=== PATIENT | female | born 1955 | race Caucasian/White ===

== ENCOUNTER 2017-05-27 18:09 | Observation (INO) | payer MEDICARE, SELFPAY ==
[2017-05-27 18:10] VITALS: BP 174/100; PULSE 93; RESP 16; TEMP 36.6; O2SAT 97; BMI 50.2
--- NOTE | 2017-05-27 20:06 | PCM.HP.STD ---
Problem List (1) Tonsillitis Status: Acute (2) JOSIE (obstructive sleep apnea) Status: Chronic Comment: not wearing CPAP or BIPAP (3) HTN (hypertension) Status: Chronic Qualifiers: Hypertension type: essential hypertension Qualified Code(s): I10 - Essential (primary) hypertension (4) Diabetes mellitus type 2 in obese Status: Chronic (5) Hyperlipidemia Status: Chronic (6) Fibromyalgia Status: Chronic (7) Morbid obesity with BMI of 50.0-59.9, adult Status: Chronic (8) GERD (gastroesophageal reflux disease) Status: Chronic (9) History of colonic polyps Status: Chronic (10) Asthma Status: Chronic History of Present Illness Date of Admission: 05/27/17 Chief Complaint: sore throat for 3 weeks The patient is a 61 year old F with a PMH of DM II, HTN, HLD, GERD, nephrolithiasis, colon polyps, fibromyalgia, morbid obesity and hx of mastoiditis requiring surgery Left mastoid who presented to the ER at [facility] on 05/[address] Carter's office saying she needed to be admitted to the hospital for IV Vancomycin. She tells me that she had a nasal culture that has a resistant bacteria in it? There were no culture reports accompanying her and we received no reports from Dr. Carter's office. She has had a sore throat for 3 weeks and also has post nasal drainage with a cough when she lies down. She was initially treated with Azithromycin which she states helped but did not resolve the pain. She then had a 10 day course of Clindamycin which did nothing. She lists 28 allergies on her medication reconciliation and many are unknown reactions. On PE she has red enlarged tonsils, almost kissing. There is no exudate present and she has no drooling. She is able to swallow liquids without a problem. She can open her mouth widely. She is being admitted to the hospital for observation and will be placed on Vancomycin until we are able to obtain the culture results from the [facility]/Dr. Carter. She is not currently being treated for JOSIE. She tells me that in [place] they taught her to lie on her side or on her stomach so that she would not need CPAP. She has not had a sleep study in several years and has gained weight since the sleep study was done. Past Medical History Past Medical History (Chronic Problems): Chronic Problems JOSIE (obstructive sleep apnea) (Chronic) not wearing CPAP or BIPAP HTN (hypertension) (Chronic) Diabetes mellitus type 2 in obese (Chronic) Hyperlipidemia (Chronic) Fibromyalgia (Chronic) Morbid obesity with BMI of 50.0-59.9, adult (Chronic) GERD (gastroesophageal reflux disease) (Chronic) History of colonic polyps (Chronic) Asthma (Chronic) Allergies adhesive tape Allergy (Verified 05/27/17 18:15) Other cephalexin monohydrate [From Keflex] Allergy (Verified 05/27/17 19:39) Other DIME SIZE SPOTS ON LEGS ciprofloxacin [From Cipro] Allergy (Verified 05/27/17 18:15) Hives ciprofloxacin HCl [From Cipro] Allergy (Verified 05/27/17 18:15) Hives citalopram hydrobromide [From Celexa] Allergy (Verified 05/27/17 18:15) Unknown clarithromycin [From Biaxin] Allergy (Verified 05/27/17 18:15) Unknown codeine Allergy (Verified 05/27/17 18:15) Unknown diltiazem HCl [From Cardizem] Allergy (Verified 05/27/17 18:15) Unknown fluoxetine HCl [From Prozac] Allergy (Verified 05/27/17 18:15) Unknown fluticasone propionate [From Advair Diskus] Allergy (Verified 05/27/17 18:15) Other hydrochlorothiazide [From Hyzaar] Allergy (Verified 05/27/17 18:15) Unknown ipratropium bromide [From Atrovent] Allergy (Verified 05/27/17 18:15) Unknown labetalol Allergy (Verified 05/27/17 18:15) Rash lamotrigine [From Lamictal] Allergy (Verified 05/27/17 18:15) Unknown latex Allergy (Verified 05/27/17 18:15) Unknown liraglutide [From Victoza] Allergy (Verified 05/27/17 18:15) Unknown losartan potassium [From Hyzaar] Allergy (Verified 05/27/17 18:15) Unknown meloxicam [From Mobic] Allergy (Verified 05/27/17 18:15) Other nitrofurantoin [From Macrobid] Allergy (Verified 05/27/17 18:15) Hives nitrofurantoin macrocrystalline [From Macrobid] Allergy (Verified 05/27/17 18:15) Hives Penicillins Allergy (Verified 05/27/17 18:15) Rash quetiapine fumarate [From Seroquel] Allergy (Verified 05/27/17 18:15) Unknown salmeterol xinafoate [From Advair Diskus] Allergy (Verified 05/27/17 18:15) Other sertraline HCl [From Zoloft] Allergy (Verified 05/27/17 18:15) Unknown simvastatin [From Zocor] Allergy (Verified 05/27/17 18:15) Unknown topiramate [From Topamax] Allergy (Verified 05/27/17 18:15) Unknown verapamil HCl [From Covera-HS] Allergy (Verified 05/27/17 18:15) Unknown acetaminophen [From Lortab] Adverse Reaction (Verified 05/27/17 18:15) Nausea hydrocodone bitartrate [From Lortab] Adverse Reaction (Verified 05/27/17 18:15) Nausea ramipril [From Altace] Adverse Reaction (Verified 05/27/17 18:15) Laryngospasms sulfamethoxazole [From Septra] Adverse Reaction (Verified 05/27/17 18:15) Unknown trimethoprim [From Septra] Adverse Reaction (Verified 05/27/17 18:15) Unknown ZONEGRAM Allergy (Uncoded 05/27/17 18:15) Unknown Home Medications: Ambulatory Orders Medication Instructions Recorded Amlodipine [Norvasc] 1 tab PO DAILY 05/27/17 Aspirin [Aspir-Low] 1 tab PO DAILY 05/27/17 Buspar 1 tab PO BID 05/27/17 Clonidine HCl [Clonidine HCl] 1 tab PO TID 05/27/17 Cyclobenzaprine [Flexeril] 10 mg PO QHS PRN 05/27/17 DiphenhydrAMINE [Benadryl] 25 - 50 mg PO BID PRN PRN 05/27/17 Insulin Glargine [Lantus SoloStar 50 mg IM BID 05/27/17 Pen] Metformin HCl 1,000 mg PO BID 05/27/17 Omeprazole [Prilosec] 20 mg PO DAILY 05/27/17 Probiotic 1 tab PO DAILY 05/27/17 Surgical History: cholecystectomy, hysterectomy - still has 1 ovary......can not tell me why she had a hysterectomy but knows that she did not have cancer, - - surgery on the L matstoid, CT surgery on the RUE Psychiatric History: No pertinent psych hx DEAN OF STUDENTS History: No pertinent DEAN OF STUDENTS history Lives: With Family Smoking Status: Never smoker Tobacco Use: Non-smoker Alcohol: None Drugs: None - *Family History Maternal History Items: - - mother with emphysema Paternal History Items: Heart Disease Review of Systems Constitutional: Reports: Chills, Fever. Denies: Anorexia Eyes: Denies: Blurred vision, Redness, Vision Change HEENT: Reports: Difficulty Swallowing - solids and dry foods, Ear Pain, Head Aches, Post Nasal Drip, Sore Throat. Denies: Difficulty Hearing Cardiovascular: Denies: Chest Pain, Edema, Palpitations, Paroxysmal Noc. Dyspnea Respiratory: Reports: Cough - when she lies down primarily, Shortness of breath upon exertion Gastrointestinal: Reports: Abdominal Pain - this is chronic. Denies: Diarrhea, Nausea, Vomiting Genitourinary: Denies: Dysuria Musculoskeletal: Reports: - - She has pain all over - from fibromyalgia Skin: Denies: Jaundice, Rash, Wounds Neurological: Denies: Numbness, Tingling, Focal weakness Psychiatric: Denies: Anxiety, Depression, Homicidal Ideations, Suicidal Ideations Endocrine: Reports: Change in Body Habitus - she has been gaining weight over the past few years. Denies: Hx of Thyroiditis Hematologic/ Lymphatic: Denies: Hx of blood clot VTE Information - Inpt Only VTE Present on Admission: No VTE Mechan Device Prophylaxis: SCD's VTE Pharm Prophylaxis ordered?: Yes Patient Problems: Active and Suspected Problems Tonsillitis (Acute) - Physical Exam General: Alert, Oriented x3, Cooperative, No apparent distress, Well developed, Well nourished, - - not toxi appearing HEENT: Atraumatic, PERRLA, EOMI, Normocephalic, EAC Clear, - - the R TM is normal. There is sacrring on the left TM but no significant effusion and no redness Oral: Moist Mucosa, No Gingival or Mucosal Lesions/ Ulcerations, - - The tonsil are very enlarged and are almost kissing. The floor of the mouth is soft and she has no trismus and can open wide. There is no exudate on the tonsils and the buccal mucosa is normal. No drooling and she is able to swallow thin liquids without difficulty Neck: Supple, Negative Carotid Bruits, No Nodes - I can not palpate any cervical adenopathy but she has a thick neck, No Nuchal Rigidity, Trachea Midline Lungs: Clear to auscultation, No rhonchi, No wheeze, No rales, Diminished - may be due to body habitus Cardiovascular: Regular rate, Regular Rhythm, Normal S1, Normal S2, No Ectopic Activity, Murmur - 1-2/6 at the second RICS, No rub noted, No Gallop Abdomen: Bowel Sounds Present, Soft, Non-Distended, Obese, - - no guarding with palpation Extremities: No clubbing, No cyanosis, No edema, No Calf Tenderness, Peripheral Pulses Normal Skin: No rashes, No breakdown Musculoskeletal: No Muscle Wasting Neurological: Cranial nerves II-XII grossly intact, Neuro grossly intact, Motor Exam 5/5 strength throughout Psych/Mental Status: Normal Affect, Appropriate Vital Signs Temp Pulse Resp BP Pulse Ox 97.8 F 93 16 174/100 H 97 05/27/17 18:10 05/27/17 18:10 05/27/17 18:10 05/27/17 18:10 05/27/17 18:10 Oxygen Delivery Method Room Air Weight: 283 lb 11.759 oz Body Mass Index (BMI) 50.2 Assessment/Plan Active and Suspected Problems Tonsillitis (Acute) Impressions 1. Tonsillitis/pharyngitis- Persistent despite outpatient antibiotic treatment with azithromycin followed by clindamycin. She reportedly has a bacteria with multiple drug resistance growing from a nasal culture but, no culture were reports were received from [facility]/Dr. Carter. PE is not consistent with Rudolph's angina and she does not appear toxic. She will be admitted to [place] for observation and IV Vancomycin until we receive the cultures from the [facility]....hopefully in the warp splitter. There is no indication that she needs a CT neck at this time. Repeat throat and nose cultures have been ordered and a MRSA nasal swab. Bllod cultures were drawn in the ER. Multiple reported drug allergies.....many with an unknown reaction complicate treating this patient......it may be worth referring to an presser machine at some point for formal testing. 2. DM II/HTN/morbid obesity/fibromyalgia/GERD/colon polyps/JOSIE/asthma complicate/multiple drug allergies complicate management, recovery and prognosis She should follow up with Dr. Garibay or Dr. Jimenez in the pulmonary clinic for formal PFT's and PSG. Code Visit OBSV E&M: 76499 Initial observation care L3
[2017-05-27 20:16] VITALS: BP 165/89; PULSE 90; RESP 20; TEMP 36.6; O2SAT 97
[2017-05-27 20:18] LABS: Absolute Lymphocyte Count 3.61 X10^3/ul (0.83-4.51); Absolute Neutrophil Count 6.6 X10^3/uL (2.0-7.7); Basophil# 0.07 X10^3/uL; Basophil% 0.6 % (0-1); Eosinophil# 0.44 X10^3/uL; Eosinophils% 3.7 % (0-5); Hematocrit 40.4 % (37-47); Lymphocyte # 3.61 X10^3/ul (4.0); Lymphocyte % 30.3 % (19-41); Mean Corp Hgb Conc 32.2 g/gl (32-36); Mean Corpuscular Hgb 26.3 pg (27.0-32.0); Mean Corpuscular Volume 81.8 fL (81-99); Mean Platelet Vol. 10.5 fl (6.2-12.0); Monocyte# 1.11 X10^3/uL; Monocyte% 9.3 % (0-10); Neutrophil # 6.63 X10^3/uL (2.7-7.7); Neutrophil % 55.7 % (47-70); Platelet Count 379 K/mm3 (150-450); RBC Distribution Width CV 15.2 % (11.6-14.6); RBC Distribution Width SD 45.5 fl (35.1-43.9); Red Blood Count 4.94 M/mm3 (4.2-5.4); White Blood Count 11.9 K/mm3 (4.4-11.0)
[2017-05-27 20:19] LABS: POSITIVE COUNT NO; POSITIVE DIFFERENTIAL NO; POSITIVE MORPHOLOGY NO
[2017-05-27] MEDS: 0.9% Normal Saline 1,000 ML 150 ML IV (20:20)
--- NOTE | 2017-05-27 20:21 | HP.PCM_ITS ---
Problem List (1) Tonsillitis Status: Acute (2) JOSIE (obstructive sleep apnea) Status: Chronic Comment: not wearing CPAP or BIPAP (3) HTN (hypertension) Status: Chronic Qualifiers: Hypertension type: essential hypertension Qualified Code(s): I10 - Essential (primary) hypertension (4) Diabetes mellitus type 2 in obese Status: Chronic (5) Hyperlipidemia Status: Chronic (6) Fibromyalgia Status: Chronic (7) Morbid obesity with BMI of 50.0-59.9, adult Status: Chronic (8) GERD (gastroesophageal reflux disease) Status: Chronic (9) History of colonic polyps Status: Chronic (10) Asthma Status: Chronic History of Present Illness Date of Admission: 05/27/17 Chief Complaint: sore throat for 3 weeks The patient is a 61 year old F with a PMH of DM II, HTN, HLD, GERD, nephrolithiasis, colon polyps, fibromyalgia, morbid obesity and hx of mastoiditis requiring surgery Left mastoid who presented to the ER at [facility] on from Dr. Carter's office saying she needed to be admitted to the hospital for IV Vancomycin. She tells me that she had a nasal culture that has a resistant bacteria in it? There were no culture reports accompanying her and we received no reports from Dr. Carter's office. She has had a sore throat for 3 weeks and also has post nasal drainage with a cough when she lies down. She was initially treated with Azithromycin which she states helped but did not resolve the pain. She then had a 10 day course of Clindamycin which did nothing. She lists 28 allergies on her medication reconciliation and many are unknown reactions. On PE she has red enlarged tonsils, almost kissing. There is no exudate present and she has no drooling. She is able to swallow liquids without a problem. She can open her mouth widely. She is being admitted to the hospital for observation and will be placed on Vancomycin until we are able to obtain the culture results from the [facility]/Dr. Carter. She is not currently being treated for JOSIE. She tells me that in [place] they taught her to lie on her side or on her stomach so that she would not need CPAP. She has not had a sleep study in several years and has gained weight since the sleep study was done. Past Medical History Past Medical History (Chronic Problems): Chronic Problems JOSIE (obstructive sleep apnea) (Chronic) not wearing CPAP or BIPAP HTN (hypertension) (Chronic) Diabetes mellitus type 2 in obese (Chronic) Hyperlipidemia (Chronic) Fibromyalgia (Chronic) Morbid obesity with BMI of 50.0-59.9, adult (Chronic) GERD (gastroesophageal reflux disease) (Chronic) History of colonic polyps (Chronic) Asthma (Chronic) Allergies adhesive tape Allergy (Verified 05/27/17 18:15) Other cephalexin monohydrate [From Keflex] Allergy (Verified 05/27/17 19:39) Other DIME SIZE SPOTS ON LEGS ciprofloxacin [From Cipro] Allergy (Verified 05/27/17 18:15) Hives ciprofloxacin HCl [From Cipro] Allergy (Verified 05/27/17 18:15) Hives citalopram hydrobromide [From Celexa] Allergy (Verified 05/27/17 18:15) Unknown clarithromycin [From Biaxin] Allergy (Verified 05/27/17 18:15) Unknown codeine Allergy (Verified 05/27/17 18:15) Unknown diltiazem HCl [From Cardizem] Allergy (Verified 05/27/17 18:15) Unknown fluoxetine HCl [From Prozac] Allergy (Verified 05/27/17 18:15) Unknown fluticasone propionate [From Advair Diskus] Allergy (Verified 05/27/17 18:15) Other hydrochlorothiazide [From Hyzaar] Allergy (Verified 05/27/17 18:15) Unknown ipratropium bromide [From Atrovent] Allergy (Verified 05/27/17 18:15) Unknown labetalol Allergy (Verified 05/27/17 18:15) Rash lamotrigine [From Lamictal] Allergy (Verified 05/27/17 18:15) Unknown latex Allergy (Verified 05/27/17 18:15) Unknown liraglutide [From Victoza] Allergy (Verified 05/27/17 18:15) Unknown losartan potassium [From Hyzaar] Allergy (Verified 05/27/17 18:15) Unknown meloxicam [From Mobic] Allergy (Verified 05/27/17 18:15) Other nitrofurantoin [From Macrobid] Allergy (Verified 05/27/17 18:15) Hives nitrofurantoin macrocrystalline [From Macrobid] Allergy (Verified 05/27/17 18:15 ) Hives Penicillins Allergy (Verified 05/27/17 18:15) Rash quetiapine fumarate [From Seroquel] Allergy (Verified 05/27/17 18:15) Unknown salmeterol xinafoate [From Advair Diskus] Allergy (Verified 05/27/17 18:15) Other sertraline HCl [From Zoloft] Allergy (Verified 05/27/17 18:15) Unknown simvastatin [From Zocor] Allergy (Verified 05/27/17 18:15) Unknown topiramate [From Topamax] Allergy (Verified 05/27/17 18:15) Unknown verapamil HCl [From Covera-HS] Allergy (Verified 05/27/17 18:15) Unknown acetaminophen [From Lortab] Adverse Reaction (Verified 05/27/17 18:15) Nausea hydrocodone bitartrate [From Lortab] Adverse Reaction (Verified 05/27/17 18:15) Nausea ramipril [From Altace] Adverse Reaction (Verified 05/27/17 18:15) Laryngospasms sulfamethoxazole [From Septra] Adverse Reaction (Verified 05/27/17 18:15) Unknown trimethoprim [From Septra] Adverse Reaction (Verified 05/27/17 18:15) Unknown ZONEGRAM Allergy (Uncoded 05/27/17 18:15) Unknown Home Medications: Ambulatory Orders Medication Instructions Recorded Amlodipine [Norvasc] 1 tab PO DAILY 05/27/17 Aspirin [Aspir-Low] 1 tab PO DAILY 05/27/17 Buspar 1 tab PO BID 05/27/17 Clonidine HCl [Clonidine HCl] 1 tab PO TID 05/27/17 Cyclobenzaprine [Flexeril] 10 mg PO QHS PRN 05/27/17 DiphenhydrAMINE [Benadryl] 25 - 50 mg PO BID PRN PRN 05/27/17 Insulin Glargine [Lantus SoloStar 50 mg IM BID 05/27/17 Pen] Metformin HCl 1,000 mg PO BID 05/27/17 Omeprazole [Prilosec] 20 mg PO DAILY 05/27/17 Probiotic 1 tab PO DAILY 05/27/17 Surgical History: cholecystectomy, hysterectomy - still has 1 ovary......can not tell me why she had a hysterectomy but knows that she did not have cancer, - - surgery on the L matstoid, CT surgery on the RUE Psychiatric History: No pertinent psych hx KILN PUSHER History: No pertinent KILN PUSHER history Lives: With Family Smoking Status: Never smoker Tobacco Use: Non-smoker Alcohol: None Drugs: None - *Family History Maternal History Items: - - mother with emphysema Paternal History Items: Heart Disease Review of Systems Constitutional: Reports: Chills, Fever. Denies: Anorexia Eyes: Denies: Blurred vision, Redness, Vision Change HEENT: Reports: Difficulty Swallowing - solids and dry foods, Ear Pain, Head Aches, Post Nasal Drip, Sore Throat. Denies: Difficulty Hearing Cardiovascular: Denies: Chest Pain, Edema, Palpitations, Paroxysmal Noc. Dyspnea Respiratory: Reports: Cough - when she lies down primarily, Shortness of breath upon exertion Gastrointestinal: Reports: Abdominal Pain - this is chronic. Denies: Diarrhea, Nausea, Vomiting Genitourinary: Denies: Dysuria Musculoskeletal: Reports: - - She has pain all over - from fibromyalgia Skin: Denies: Jaundice, Rash, Wounds Neurological: Denies: Numbness, Tingling, Focal weakness Psychiatric: Denies: Anxiety, Depression, Homicidal Ideations, Suicidal Ideations Endocrine: Reports: Change in Body Habitus - she has been gaining weight over the past few years. Denies: Hx of Thyroiditis Hematologic/ Lymphatic: Denies: Hx of blood clot VTE Information - Inpt Only VTE Present on Admission: No VTE Mechan Device Prophylaxis: SCD's VTE Pharm Prophylaxis ordered?: Yes Patient Problems: Active and Suspected Problems Tonsillitis (Acute) - Physical Exam General: Alert, Oriented x3, Cooperative, No apparent distress, Well developed, Well nourished, - - not toxi appearing HEENT: Atraumatic, PERRLA, EOMI, Normocephalic, EAC Clear, - - the R TM is normal. There is sacrring on the left TM but no significant effusion and no redness Oral: Moist Mucosa, No Gingival or Mucosal Lesions/ Ulcerations, - - The tonsil are very enlarged and are almost kissing. The floor of the mouth is soft and she has no trismus and can open wide. There is no exudate on the tonsils and the buccal mucosa is normal. No drooling and she is able to swallow thin liquids without difficulty Neck: Supple, Negative Carotid Bruits, No Nodes - I can not palpate any cervical adenopathy but she has a thick neck, No Nuchal Rigidity, Trachea Midline Lungs: Clear to auscultation, No rhonchi, No wheeze, No rales, Diminished - may be due to body habitus Cardiovascular: Regular rate, Regular Rhythm, Normal S1, Normal S2, No Ectopic Activity, Murmur - 1-2/6 at the second RICS, No rub noted, No Gallop Abdomen: Bowel Sounds Present, Soft, Non-Distended, Obese, - - no guarding with palpation Extremities: No clubbing, No cyanosis, No edema, No Calf Tenderness, Peripheral Pulses Normal Skin: No rashes, No breakdown Musculoskeletal: No Muscle Wasting Neurological: Cranial nerves II-XII grossly intact, Neuro grossly intact, Motor Exam 5/5 strength throughout Psych/Mental Status: Normal Affect, Appropriate Vital Signs Temp Pulse Resp BP Pulse Ox 97.8 F 93 16 174/100 H 97 05/27/17 18:10 05/27/17 18:10 05/27/17 18:10 05/27/17 18:10 05/27/17 18:10 Oxygen Delivery Method Room Air Weight: 283 lb 11.759 oz Body Mass Index (BMI) 50.2 Assessment/Plan Active and Suspected Problems Tonsillitis (Acute) Impressions 1. Tonsillitis/pharyngitis- Persistent despite outpatient antibiotic treatment with azithromycin followed by clindamycin. She reportedly has a bacteria with multiple drug resistance growing from a nasal culture but, no culture were reports were received from [facility]/Dr. Cartre. PE is not consistent with Rudolph's angina and she does not appear toxic. She will be admitted to [place] for observation and IV Vancomycin until we receive the cultures from the [facility]....hopefully in the diagnostic cardiac sonographer. There is no indication that she needs a CT neck at this time. Repeat throat and nose cultures have been ordered and a MRSA nasal swab. Bllod cultures were drawn in the ER. Multiple reported drug allergies.....many with an unknown reaction complicate treating this patient......it may be worth referring to an drywall stripper helper at some point for formal testing. 2. DM II/HTN/morbid obesity/fibromyalgia/GERD/colon polyps/JOSIE/asthma complicate/multiple drug allergies complicate management, recovery and prognosis She should follow up with Dr. Garibay or Dr. Jimenez in the pulmonary clinic for formal PFT's and PSG. Code Visit OBSV E&M: 11450 Initial observation care L3
[2017-05-27 20:23] VITALS: BP 165/89; PULSE 88; RESP 20; O2SAT 96
[2017-05-27 20:28] LABS: Anion Gap 10 (5-15); BUN 17 mg/dL (7-18); BUN/Creat Ratio 19.8 RATIO (10-20); Calcium,Total 8.8 mg/dL (8.5-10.1); Chloride 104 mmol/L (98-107); Creatinine, Serum 0.86 mg/dL (0.55-1.02); EST Glomerular Filtration Rate 72 mL/min (>60); Est Glom Filt Rate - Afr Amer 87 mL/min (>60); Estimated Creatinine Clearance 58.26 ml/min; Glucose 162 mg/dL (74-106); Potassium 3.9 mmol/L (3.5-5.1); Sodium Level 139 mmol/L (136-145)
[2017-05-27 21:05] VITALS: BP 161/87; PULSE 81; RESP 16; TEMP 36.6; O2SAT 96
[2017-05-27 21:07] VITALS: BMI 49.9; BMI 50.3
[2017-05-27] MEDS: Loratadine 10 MG Tablet PO (22:22)
[2017-05-27 22:41] LABS: Bedside Glucose 144 mg/dL (70-110)
[2017-05-27 22:50] VITALS: PULSE 88; O2SAT 96
--- NOTE | 2017-05-27 23:55 | ED.VISSUMM ---
- ER Visit Summary Date of Service: 05/27/17 Chief Complaint: Strep throat History of Present Illness: The patient is a 61 F who reports that she has had 3 positive strep test in the last 2 weeks. She been fighting a sore throat with fevers and chills over the past 3 weeks. Patient states her most recent culture was done from the nose and showed an additional bacteria that is drug-resistant. She does not know the name of this bacteria. Paperwork sent over from the [facility] does not have results of this culture. Patient states that because of the drug resistance she was sent in for admission and IV vancomycin. She does have multiple drug allergies listed. Physical Examination: Vital signs reveal blood pressure 174/100, otherwise unremarkable. Patient sitting in a bedside chair. She is in no acute distress. She is speaking with a strong voice and is tolerating secretions well. Head and neck examination reveal moist mucous membranes. She does have 3+ tonsils but no exudate is noted. Uvula is midline. Heart is regular rate and rhythm. On lung sounds are clear. Abdomen is soft nontender. Test Results: CBC was a white count 11.9. Chemistry studies are significant for glucose of 162. Emergency Department Course and Treatment: Patient was given a dose of IV vancomycin. She was discussed with the hospitalist who will admit to observation status tonight. They will obtain cultures results from the clinic to determine what antibiotic the patient needs to be on. If the patient needs a PICC line that can be arranged as well. Treatment Plan: [] Disposition: Admit Impression: Pharyngitis This note was generated with Markkit dictation software. It may contain incorrect words, spelling, and punctuation that were not noted in review of the chart prior to signing ED Disposition - Plan for ED Patient: Disposition: Acute Care Hospital [facility] Chief Complaint: Sore Throat
[2017-05-28] VITALS (10 sets, daily range): BP systolic 153–185; BP diastolic 69–96; PULSE 79–103; RESP 16–24; TEMP 36.6–37.3; O2SAT 95–98
[2017-05-28 00:37] LABS: M R Staph aureus DNA By PCR Negative (Negative); Probe Check PASS; Specimen Processing Control PASS
[2017-05-28] MEDS: hydrALAZINE 20 MG/ML Vial IV (01:35)
[2017-05-28] MEDS: Ibuprofen 100 MG/5 ML UDC 600 MG PO (01:35)
--- NOTE | 2017-05-28 03:24 | PCM.RX.CS ---
Consult Pharmacy has been consulted to manage selected antiobiotic: Vancomycin Type of Consult: New start Suspected Infection: Other Prior Doses of Antibiotics Received/Current Regimen: Medications Vancomycin HCl 1,500 mg/ (Sodium Chloride) 530 mls @ 250 mls/hr IV Q12H GIFTY Discontinued Medications Vancomycin HCl 1,250 mg/ (Sodium Chloride) 275 mls @ 250 mls/hr IV X1 ONE Stop: 05/27/17 21:05 Last Admin: 05/27/17 20:20 Dose: 250 mls/hr Labs: Sodium 139 mmol/L (136-145) 05/27/17 20:05 Potassium 3.9 mmol/L (3.5-5.1) 05/27/17 20:05 Chloride 104 mmol/L (98-107) 05/27/17 20:05 Carbon Dioxide 25.0 mmol/L (21.0-32.0) 05/27/17 20:05 Anion Gap 10 (5-15) 05/27/17 20:05 BUN 17 mg/dL (7-18) 05/27/17 20:05 Creatinine 0.86 mg/dL (0.55-1.02) 05/27/17 20:05 Est GFR (MDRD) Af Amer 87 mL/min (>60) 05/27/17 20:05 Est GFR (MDRD) Non-Af 72 mL/min (>60) 05/27/17 20:05 BUN/Creatinine Ratio 19.8 RATIO (10-20) 05/27/17 20:05 Glucose 162 mg/dL (74-106) H 05/27/17 20:05 Orders 05/29/17 08:00 Vancomycin Level Trough [Vancomycin, Trough Level] Timed Pharmacy Plan for Drug Dosing: Pharmacy Service will continue to monitor and adjust dosing as required. Follow-Up Labs: Trough Vancomycin Labs to be done on [date and time ordered]: VANCO TROUGH 05/29/17 @ 0830
[2017-05-28 05:56] LABS: Absolute Lymphocyte Count 3.41 X10^3/ul (0.83-4.51); Absolute Neutrophil Count 5.9 X10^3/uL (2.0-7.7); Basophil# 0.07 X10^3/uL; Basophil% 0.6 % (0-1); Eosinophil# 0.39 X10^3/uL; Eosinophils% 3.6 % (0-5); Hemoglobin 11.9 g/dl (12.0-15.0); Lymphocyte # 3.41 X10^3/ul (4.0); Lymphocyte % 31.5 % (19-41); Mean Corp Hgb Conc 32.2 g/gl (32-36); Mean Corpuscular Hgb 26.3 pg (27.0-32.0); Mean Corpuscular Volume 81.9 fL (81-99); Mean Platelet Vol. 10.9 fl (6.2-12.0); Monocyte# 1.01 X10^3/uL; Monocyte% 9.3 % (0-10); Neutrophil # 5.91 X10^3/uL (2.7-7.7); Neutrophil % 54.8 % (47-70); Platelet Count 322 K/mm3 (150-450); RBC Distribution Width CV 15.2 % (11.6-14.6); RBC Distribution Width SD 45.1 fl (35.1-43.9); Red Blood Count 4.52 M/mm3 (4.2-5.4); White Blood Count 10.8 K/mm3 (4.4-11.0)
[2017-05-28 06:07] LABS: POSITIVE COUNT NO; POSITIVE DIFFERENTIAL NO; POSITIVE MORPHOLOGY NO
[2017-05-28] MEDS: 0.9% Normal Saline 1,000 ML 100 ML IV ×2 (06:12→17:00)
[2017-05-28] MEDS: cloNIDine HCl 0.1 MG Tablet 0.3 MG PO ×3 (06:12→21:47)
[2017-05-28 06:27] LABS: ALB/GLOB Ratio 0.6 RATIO (0.9-2.4); AST(SGOT) 27 U/L (15-37); Alanine Aminotransfer ALT/SGPT 26 U/L (13-56); Alkaline Phosphatase 88 U/L (45-117); Anion Gap 8 (5-15); BUN 12 mg/dL (7-18); BUN/Creat Ratio 17.5 RATIO (10-20); Calcium,Total 8.4 mg/dL (8.5-10.1); Chloride 105 mmol/L (98-107); Cholesterol 212 mg/dL (200); Creatinine, Serum 0.69 mg/dL (0.55-1.02); EST Glomerular Filtration Rate 93 mL/min (>60); Est Glom Filt Rate - Afr Amer 112 mL/min (>60); Estimated Creatinine Clearance 69.43 ml/min; Globulin 4.7 g/dL (2.2-4.2); Glucose 131 mg/dL (74-106); High Density Lipoprotein 40 mg/dL; Magnesium 1.5 mg/dL (1.6-2.6); Phosphorus 3.3 mg/dL (2.5-4.9); Potassium 3.7 mmol/L (3.5-5.1); Protein, Total 7.7 g/dL (6.4-8.2); Sodium Level 139 mmol/L (136-145); Triglycerides 167 mg/dL; Very Low Density Lipoprotein 33 mg/dL (5-40)
[2017-05-28 06:45] LABS: Bedside Glucose 132 mg/dL (70-110)
[2017-05-28] MEDS: Aspirin 81 MG TAB.CHEW PO (09:00)
[2017-05-28] MEDS: busPIRone 15 MG TABLET 30 MG PO ×2 (09:00→21:46)
[2017-05-28] MEDS: amLODIPine 10 MG Tablet PO (09:00)
[2017-05-28] MEDS: Pantoprazole Sodium 20 MG Tablet PO (09:01)
[2017-05-28] MEDS: metFORMIN HCl 1,000 MG Tablet 1000 MG PO ×2 (09:01→17:18)
[2017-05-28] MEDS: Enoxaparin 40 MG/0.4 ML Syringe SC (09:02)
[2017-05-28] MEDS: Loratadine 10 MG Tablet PO (09:02)
[2017-05-28] MEDS: Glucerna Shake 120 ML LIQUID PO ×2 (09:06→17:18)
[2017-05-28] MEDS: DiphenhydrAMINE 25 MG Capsule PO ×2 (10:45→21:11)
[2017-05-28] MEDS: Ceftriaxone 1 GM/50 ML BAG IV (11:19)
[2017-05-28 12:26] LABS: Bedside Glucose 188 mg/dL (70-110)
--- NOTE | 2017-05-28 13:25 | CASEMGMT ---
Chart reviewed. Case management will follow as plan unveils.
[2017-05-28 16:31] LABS: Bedside Glucose 150 mg/dL (70-110)
--- NOTE | 2017-05-28 18:19 | PN_ITS ---
Patient Problems: Active and Suspected Problems Tonsillitis (Acute) Subjective: She feels fair. Some discomfort in throat, but much less so than expected from the size of tonsils. - Physical Exam General: Alert, Oriented x3, Cooperative, Well developed, Well nourished HEENT: Atraumatic, PERRLA, Normocephalic Oral: Moist Mucosa, - - Enlarged tonsils, slightly erythematous. No exudate on tonsils. Neck: Supple, No JVD Lungs: Clear to auscultation, Normal air movement, No rhonchi, No wheeze, No rales Cardiovascular: Regular rate, Regular Rhythm, Normal S1, Normal S2, No murmurs, No Ectopic Activity Abdomen: Bowel Sounds Present, Soft, Non Tender, Non-Distended, Obese Extremities: No clubbing, No cyanosis, No edema Skin: No rashes, No breakdown Musculoskeletal: No Tenderness to Palpation of Joints or Extremities, No Muscle Wasting Lymphatic: No Cervical, Supraclavicular, or Inguinal Adenopathy Neurological: Cranial nerves II-XII grossly intact, Neuro grossly intact Psych/Mental Status: Normal Affect, Appropriate Vital Signs Temp Pulse Resp BP Pulse Ox 98.0 F 86 16 170/78 H 98 05/28/17 14:05 05/28/17 14:05 05/28/17 14:05 05/28/17 14:05 05/28/17 14:05 Oxygen Delivery Method Room Air Weight: 281 lb 15.539 oz Body Mass Index (BMI) 49.9 Intake and Output for Last 24 Hours 05/26/17 05/27/17 05/28/17 23:59 23:59 23:59 Intake Total 2674 / 2674 Output Total 1700 / 1700 Balance 974 / 974 Microbiology Past 72 Hours 05/27/17 22:45 Gram Stain - Final Aspirate - Nose Laboratory Tests Past 24 Hrs 05/27/17 05/27/17 05/27/17 20:05 20:05 20:05 WBC 11.9 H RBC 4.94 Hgb 13.0 Hct 40.4 MCV 81.8 MCH 26.3 L MCHC 32.2 RDW 15.2 H RDW Differential 45.5 H Plt Count 379 MPV 10.5 Immature Gran % (Auto) 0.400 Neut % (Auto) 55.7 Lymph % (Auto) 30.3 Hernando % (Auto) 9.3 Eos % (Auto) 3.7 Baso % (Auto) 0.6 Absolute Neuts (auto) 6.6 Absolute Lymphs (auto) 3.61 Total Counted Not Reportable Sodium 139 Potassium 3.9 Chloride 104 Carbon Dioxide 25.0 Anion Gap 10 BUN 17 Creatinine 0.86 Estim Creat Clear Calc 58.26 Est GFR (MDRD) Af Amer 87 Est GFR (MDRD) Non-Af 72 BUN/Creatinine Ratio 19.8 Glucose 162 H Hemoglobin A1c 8.0 H Calcium 8.8 Phosphorus Magnesium Total Bilirubin AST ALT Alkaline Phosphatase Total Protein Albumin Globulin Albumin/Globulin Ratio Triglycerides Cholesterol LDL Cholesterol VLDL Cholesterol HDL Cholesterol MRSA (PCR) 05/27/17 05/28/17 05/28/17 22:45 05:15 05:15 WBC 10.8 RBC 4.52 Hgb 11.9 L Hct 37.0 MCV 81.9 MCH 26.3 L MCHC 32.2 RDW 15.2 H RDW Differential 45.1 H Plt Count 322 MPV 10.9 Immature Gran % (Auto) 0.200 Neut % (Auto) 54.8 Lymph % (Auto) 31.5 Hernando % (Auto) 9.3 Eos % (Auto) 3.6 Baso % (Auto) 0.6 Absolute Neuts (auto) 5.9 Absolute Lymphs (auto) 3.41 Total Counted Not Reportable Sodium 139 Potassium 3.7 Chloride 105 Carbon Dioxide 26.0 Anion Gap 8 BUN 12 Creatinine 0.69 Estim Creat Clear Calc 69.43 Est GFR (MDRD) Af Amer 112 Est GFR (MDRD) Non-Af 93 BUN/Creatinine Ratio 17.5 Glucose 131 H Hemoglobin A1c Calcium 8.4 L Phosphorus 3.3 Magnesium 1.5 L Total Bilirubin 0.40 AST 27 ALT 26 Alkaline Phosphatase 88 Total Protein 7.7 Albumin 3.0 L Globulin 4.7 H Albumin/Globulin Ratio 0.6 L Triglycerides 167 Cholesterol 212 H LDL Cholesterol 139 H VLDL Cholesterol 33 HDL Cholesterol 40 MRSA (PCR) Negative POC Glucose 05/28/17 05/28/17 05/28/17 16:18 11:21 06:30 POC Glucose 150 H 188 H 132 H 05/27/17 22:32 POC Glucose 144 H Medical Necessity - Tobacco Use Smoking Status: Never smoker Tobacco Use: Non-smoker Assessment/Plan Active and Suspected Problems Tonsillitis (Acute) The patient is a 61 year old F with a PMH of DM II, HTN, HLD, GERD, nephrolithiasis, colon polyps, fibromyalgia, morbid obesity and hx of mastoiditis requiring surgery Left mastoid who presented to the ER at [facility] on from Dr. Carter's office saying she needed to be admitted to the hospital for IV Vancomycin. She tells me that she had a nasal culture that has a resistant bacteria in it? There were no culture reports accompanying her and we received no reports from Dr. Carter's office. She has had a sore throat for 3 weeks and also has post nasal drainage with a cough when she lies down. She was initially treated with Azithromycin which she states helped but did not resolve the pain. She then had a 10 day course of clindamycin which did nothing. She lists 28 allergies on her medication reconciliation and many are unknown reactions. On PE she has red enlarged tonsils, almost kissing. There is no exudate present and she has no drooling. She is able to swallow liquids without a problem. She can open her mouth widely. #1 Tonsillitis. Record from Dr. Mosqueda' office reviewed. Throat culture showed group A strep (strep pyogenes) sensitive to ceftriaxone, but not to erythromycin. She was started on vancomycin empirically on admission. Change antibiotics to ceftriaxone 1 gram daily (05/28). Monitor closely for history of Keflex allergy. She has been tolerating well so far. #2 DM II. Levemir 30 units bid and add Novolog sliding scale. #3 Essential hypertension. Blood pressure is stable. Continue current medications. #4 Fibromyalgia. #5 Morbid obesity with BMI 50. Life style modification. Continue calorie restricted diet for diabetes. #6 JOSIE. VTE prophylaxis: Lovenox. GI prophylaxis: ppi po. She is full code. Disposition: Home in 1 to 2 days. Code Visit OBSV E&M: 96694 Subsequent observation care L3
[2017-05-28] MEDS: Ibuprofen 600 MG Tablet PO (19:08)
[2017-05-28 22:35] LABS: Bedside Glucose 155 mg/dL (70-110)
[2017-05-29] MEDS: 0.9% Normal Saline 1,000 ML 100 ML IV (02:39)
[2017-05-29 02:42] VITALS: BP 147/66; PULSE 82; RESP 16; TEMP 36.6; O2SAT 96
[2017-05-29] MEDS: cloNIDine HCl 0.1 MG Tablet 0.3 MG PO ×2 (06:48→13:38)
[2017-05-29 06:51] VITALS: BP 157/74; PULSE 72
[2017-05-29 06:56] LABS: Bedside Glucose 130 mg/dL (70-110)
[2017-05-29 07:11] LABS: Hematocrit 37.3 % (37-47); Hemoglobin 11.6 g/dl (12.0-15.0); Mean Corp Hgb Conc 31.1 g/gl (32-36); Mean Corpuscular Hgb 25.7 pg (27.0-32.0); Mean Corpuscular Volume 82.7 fL (81-99); Mean Platelet Vol. 10.2 fl (6.2-12.0); Platelet Count 281 K/mm3 (150-450); RBC Distribution Width CV 15.1 % (11.6-14.6); RBC Distribution Width SD 46.2 fl (35.1-43.9); Red Blood Count 4.51 M/mm3 (4.2-5.4); Scan Indicated on CBC? Y/N NO; White Blood Count 8.7 K/mm3 (4.4-11.0)
[2017-05-29 07:35] LABS: Anion Gap 9 (5-15); BUN 9 mg/dL (7-18); BUN/Creat Ratio 15.5 RATIO (10-20); Calcium,Total 8.5 mg/dL (8.5-10.1); Chloride 108 mmol/L (98-107); Creatinine, Serum 0.58 mg/dL (0.55-1.02); EST Glomerular Filtration Rate 113 mL/min (>60); Est Glom Filt Rate - Afr Amer 136 mL/min (>60); Glucose 128 mg/dL (74-106); Potassium 3.8 mmol/L (3.5-5.1); Sodium Level 142 mmol/L (136-145)
[2017-05-29] MEDS: Aspirin 81 MG TAB.CHEW PO (09:17)
[2017-05-29] MEDS: metFORMIN HCl 1,000 MG Tablet 1000 MG PO (09:17)
[2017-05-29] MEDS: Loratadine 10 MG Tablet PO (09:17)
[2017-05-29] MEDS: busPIRone 15 MG TABLET 30 MG PO (09:17)
[2017-05-29] MEDS: Pantoprazole Sodium 20 MG Tablet PO (09:17)
[2017-05-29] MEDS: amLODIPine 10 MG Tablet PO (09:17)
[2017-05-29] MEDS: Enoxaparin 40 MG/0.4 ML Syringe SC (09:19)
[2017-05-29] MEDS: Ceftriaxone 1 GM/50 ML BAG IV (09:22)
[2017-05-29] MEDS: Glucerna Shake 120 ML LIQUID PO ×2 (09:22→13:39)
[2017-05-29 09:25] VITALS: BP 168/89; PULSE 70; RESP 18; TEMP 36.4; O2SAT 98
[2017-05-29] MEDS: Cefdinir 300 MG Capsule 600 MG PO (12:10)
[2017-05-29 12:31] LABS: Bedside Glucose 123 mg/dL (70-110)
[2017-05-29 13:36] VITALS: BP 189/103; PULSE 82; RESP 16; TEMP 37.1; O2SAT 98
--- NOTE | 2017-05-29 15:07 | DCINST_ITS ---
- Discharge Diagnoses Current Active Problems: Current Active and Chronic Problems Tonsillitis (Acute) JOSIE (obstructive sleep apnea) (Chronic) not wearing CPAP or BIPAP HTN (hypertension) (Chronic) Diabetes mellitus type 2 in obese (Chronic) Hyperlipidemia (Chronic) Fibromyalgia (Chronic) Morbid obesity with BMI of 50.0-59.9, adult (Chronic) GERD (gastroesophageal reflux disease) (Chronic) History of colonic polyps (Chronic) Asthma (Chronic) You will use the following diet at home:: Calorie/Carbohydrate Controlled ( specify 1200, 1400, etc), Cardiac Your food should be the consistency of: Regular Your liquids should be the consistency of: Regular/Thin Discharge Activity: Return to Normal Activity Allergies/Adverse Reactions: Allergies adhesive tape Allergy (Verified 05/27/17 18:15) Other cephalexin monohydrate [From Keflex] Allergy (Verified 05/27/17 19:39) Other DIME SIZE SPOTS ON LEGS ciprofloxacin [From Cipro] Allergy (Verified 05/27/17 18:15) Hives ciprofloxacin HCl [From Cipro] Allergy (Verified 05/27/17 18:15) Hives citalopram hydrobromide [From Celexa] Allergy (Verified 05/27/17 18:15) Unknown clarithromycin [From Biaxin] Allergy (Verified 05/27/17 18:15) Unknown codeine Allergy (Verified 05/27/17 18:15) Unknown diltiazem HCl [From Cardizem] Allergy (Verified 05/27/17 18:15) Unknown fluoxetine HCl [From Prozac] Allergy (Verified 05/27/17 18:15) Unknown fluticasone propionate [From Advair Diskus] Allergy (Verified 05/27/17 18:15) Other hydrochlorothiazide [From Hyzaar] Allergy (Verified 05/27/17 18:15) Unknown ipratropium bromide [From Atrovent] Allergy (Verified 05/27/17 18:15) Unknown labetalol Allergy (Verified 05/27/17 18:15) Rash lamotrigine [From Lamictal] Allergy (Verified 05/27/17 18:15) Unknown latex Allergy (Verified 05/27/17 18:15) Unknown liraglutide [From Victoza] Allergy (Verified 05/27/17 18:15) Unknown losartan potassium [From Hyzaar] Allergy (Verified 05/27/17 18:15) Unknown meloxicam [From Mobic] Allergy (Verified 05/27/17 18:15) Other nitrofurantoin [From Macrobid] Allergy (Verified 05/27/17 18:15) Hives nitrofurantoin macrocrystalline [From Macrobid] Allergy (Verified 05/27/17 18:15 ) Hives Penicillins Allergy (Verified 05/27/17 18:15) Rash quetiapine fumarate [From Seroquel] Allergy (Verified 05/27/17 18:15) Unknown salmeterol xinafoate [From Advair Diskus] Allergy (Verified 05/27/17 18:15) Other sertraline HCl [From Zoloft] Allergy (Verified 05/27/17 18:15) Unknown simvastatin [From Zocor] Allergy (Verified 05/27/17 18:15) Unknown topiramate [From Topamax] Allergy (Verified 05/27/17 18:15) Unknown verapamil HCl [From Covera-HS] Allergy (Verified 05/27/17 18:15) Unknown acetaminophen [From Lortab] Adverse Reaction (Verified 05/27/17 18:15) Nausea hydrocodone bitartrate [From Lortab] Adverse Reaction (Verified 05/27/17 18:15) Nausea ramipril [From Altace] Adverse Reaction (Verified 05/27/17 18:15) Laryngospasms sulfamethoxazole [From Septra] Adverse Reaction (Verified 05/27/17 18:15) Unknown trimethoprim [From Septra] Adverse Reaction (Verified 05/27/17 18:15) Unknown ZONEGRAM Allergy (Uncoded 05/27/17 18:15) Unknown Medications to take at Discharge Amlodipine [Norvasc] 1 tab PO DAILY 05/27/17 Aspirin [Aspir-Low] 1 tab PO DAILY 05/27/17 Clonidine HCl 1 tab PO BID 05/27/17 Cyclobenzaprine [Flexeril] 10 mg PO QHS PRN 05/27/17 DiphenhydrAMINE [Benadryl] 25 - 50 mg PO BID PRN PRN 05/27/17 Insulin Glargine [Lantus SoloStar Pen] 50 mg IM BID 05/27/17 Metformin HCl 1,000 mg PO BID 05/27/17 Omeprazole [Prilosec] 40 mg PO DAILY 05/27/17 Probiotic 1 tab PO DAILY 05/27/17 Albuterol Aerosols [Ventolin Aerosols] 2.5 mg INHALATION Q4H PRN PRN 05/28/17 Albuterol Inhaler [Ventolin Hfa] 2 puff INHALATION Q4H PRN PRN 05/28/17 Benzonatate 200 mg PO TID PRN 05/28/17 Buspirone HCl 30 mg PO BID 05/28/17 Hydrocodone/Acetaminophen [[place] 5-325 Tablet] 1 each PO BID PRN 05/28/17 Hydrocortisone 2.5% Crm [Hytone] 1 applic TOPICAL DAILY PRN 05/28/17 Naproxen 500 mg PO BID 05/28/17 Pimecrolimus [Elidel] 1 applic TOPICAL BID 05/28/17 Polyethylene Glycol 3350 [Miralax] 17 gm PO DAILY 05/28/17 Simethicone 180 mg PO BID 05/28/17 proMETHazine tablet [Phenergan tablet] 25 mg PO Q6H PRN PRN 05/28/17 Cefdinir 600 mg PO DAILY #16 cap 05/29/17 The following prescriptions were given: Cefdinir 600 mg PO DAILY #16 cap Primary Care Physician: Cynthia Mosqueda MD [Primary Care Provider] - Please follow up with your Primary Care Physician in: 5 to 7 days.
--- NOTE | 2017-05-29 15:07 | PCM.DC.SUM ---
Discharge Date and Diagnosis - Problem List Patient Problems: Active and Suspected Problems Tonsillitis (Acute) Date of Admission: 05/27/17 Date of Discharge: 05/29/17 - Primary Discharge Diagnosis Active and Suspected Problems Tonsillitis (Acute) - Secondary Discharge Diagnosis Chronic Problems JOSIE (obstructive sleep apnea) (Chronic) not wearing CPAP or BIPAP HTN (hypertension) (Chronic) Diabetes mellitus type 2 in obese (Chronic) Hyperlipidemia (Chronic) Fibromyalgia (Chronic) Morbid obesity with BMI of 50.0-59.9, adult (Chronic) GERD (gastroesophageal reflux disease) (Chronic) History of colonic polyps (Chronic) Asthma (Chronic) Hospital Course and Treatment Imaging Results: No Imaging Studies. 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 Operations: None Procedures: None Summary of Care Provided: The patient is a 61 year old F with a PMH of DM II, HTN, HLD, GERD, nephrolithiasis, colon polyps, fibromyalgia, morbid obesity and hx of mastoiditis requiring surgery Left mastoid who presented to the ER at [facility] on 05/[address] Carter's office saying she needed to be admitted to the hospital for IV Vancomycin. She tells me that she had a nasal culture that has a resistant bacteria in it? There were no culture reports accompanying her and we received no reports from Dr. Carter's office. She has had a sore throat for 3 weeks and also has post nasal drainage with a cough when she lies down. She was initially treated with Azithromycin which she states helped but did not resolve the pain. She then had a 10 day course of clindamycin which did nothing. She lists 28 allergies on her medication reconciliation and many are unknown reactions. On PE she has red enlarged tonsils, almost kissing. There is no exudate present and she has no drooling. She is able to swallow liquids without a problem. She can open her mouth widely. #1 Tonsillitis. Record from Dr. Mosqueda' office reviewed. Throat culture showed group A strep (strep pyogenes) sensitive to ceftriaxone, but not to erythromycin. She was started on vancomycin empirically on admission. Change antibiotics to ceftriaxone 1 gram daily (05/28). Monitor closely for history of Keflex allergy. She tolerated ceftriaxone uneventfully. She reports significant improvement of pain and discomfort of pharynx, although enlargement of tonsils were unchanged. She remained afebrile and no significant leukocytosis. On 05/29, cefdinir 600 mg was given in the morning, and observed closely again. She tolerated this medications also without any side effects or reaction. Plan to continue Cefdinir 600 mg po qd for 8 more days, total of 10 days of antibiotics treatment. I'm not very convinced that this is bacterial infection, but she reports significant improvement after abx treatment, and since we started the course of abx, plan to compete its course. Plan to follow up with PCP's office in 5 to 7 days. #2 DM II. Levemir 30 units bid and add Novolog sliding scale. #3 Essential hypertension. Blood pressure is stable. Continue current medications. #4 Fibromyalgia. #5 Morbid obesity with BMI 50. Life style modification. Continue calorie restricted diet for diabetes. #6 JOSIE. VTE prophylaxis: Lovenox. GI prophylaxis: ppi po. She is full code. Disposition: Home in 1 to 2 days. Discharge Diet: Low fat/ Low Cholesterol, 1800 Calorie Control Diet Discharge Activity: Return to Normal Activity Home Medications: Medications to take at Discharge Amlodipine [Norvasc] 1 tab PO DAILY 05/27/17 Aspirin [Aspir-Low] 1 tab PO DAILY 05/27/17 Clonidine HCl 1 tab PO BID 05/27/17 Cyclobenzaprine [Flexeril] 10 mg PO QHS PRN 05/27/17 DiphenhydrAMINE [Benadryl] 25 - 50 mg PO BID PRN PRN 05/27/17 Insulin Glargine [Lantus SoloStar Pen] 50 mg IM BID 05/27/17 Metformin HCl 1,000 mg PO BID 05/27/17 Omeprazole [Prilosec] 40 mg PO DAILY 05/27/17 Probiotic 1 tab PO DAILY 05/27/17 Albuterol Aerosols [Ventolin Aerosols] 2.5 mg INHALATION Q4H PRN PRN 05/28/17 Albuterol Inhaler [Ventolin Hfa] 2 puff INHALATION Q4H PRN PRN 05/28/17 Benzonatate 200 mg PO TID PRN 05/28/17 Buspirone HCl 30 mg PO BID 05/28/17 Hydrocodone/Acetaminophen [[place] 5-325 Tablet] 1 each PO BID PRN 05/28/17 Hydrocortisone 2.5% Crm [Hytone] 1 applic TOPICAL DAILY PRN 05/28/17 Naproxen 500 mg PO BID 05/28/17 Pimecrolimus [Elidel] 1 applic TOPICAL BID 05/28/17 Polyethylene Glycol 3350 [Miralax] 17 gm PO DAILY 05/28/17 Simethicone 180 mg PO BID 05/28/17 proMETHazine tablet [Phenergan tablet] 25 mg PO Q6H PRN PRN 05/28/17 Cefdinir 600 mg PO DAILY #16 cap 05/29/17 Following Prescrptions Were Given to Patient: Cefdinir 600 mg PO DAILY #16 cap Primary Care Physician: Cynthia Msoqueda MD [Primary Care Provider] - Please follow up with your Primary Care Physician in: 5 to 7 days. Disposition: Home Patient Condition:: Stable Medical Necessity - Tobacco Use Smoking Status: Never smoker Tobacco Use: Non-smoker Meaningful Use Info Meaningful Use Diagnoses (Choose all that apply): None applicable Code Visit OBSV E&M: 05443 Observation care discharge
--- NOTE | 2017-05-29 15:14 | DS.PCM_ITS ---
Discharge Date and Diagnosis - Problem List Patient Problems: Active and Suspected Problems Tonsillitis (Acute) Date of Admission: 05/27/17 Date of Discharge: 05/29/17 - Primary Discharge Diagnosis Active and Suspected Problems Tonsillitis (Acute) - Secondary Discharge Diagnosis Chronic Problems JOSIE (obstructive sleep apnea) (Chronic) not wearing CPAP or BIPAP HTN (hypertension) (Chronic) Diabetes mellitus type 2 in obese (Chronic) Hyperlipidemia (Chronic) Fibromyalgia (Chronic) Morbid obesity with BMI of 50.0-59.9, adult (Chronic) GERD (gastroesophageal reflux disease) (Chronic) History of colonic polyps (Chronic) Asthma (Chronic) Hospital Course and Treatment Imaging Results: No Imaging Studies. CRANE RIGGER: none. Operations: None Procedures: None Summary of Care Provided: The patient is a 61 year old F with a PMH of DM II, HTN, HLD, GERD, nephrolithiasis, colon polyps, fibromyalgia, morbid obesity and hx of mastoiditis requiring surgery Left mastoid who presented to the ER at [facility] on from Dr. Carter's office saying she needed to be admitted to the hospital for IV Vancomycin. She tells me that she had a nasal culture that has a resistant bacteria in it? There were no culture reports accompanying her and we received no reports from Dr. Carter's office. She has had a sore throat for 3 weeks and also has post nasal drainage with a cough when she lies down. She was initially treated with Azithromycin which she states helped but did not resolve the pain. She then had a 10 day course of clindamycin which did nothing. She lists 28 allergies on her medication reconciliation and many are unknown reactions. On PE she has red enlarged tonsils, almost kissing. There is no exudate present and she has no drooling. She is able to swallow liquids without a problem. She can open her mouth widely. #1 Tonsillitis. Record from Dr. Mosqueda' office reviewed. Throat culture showed group A strep (strep pyogenes) sensitive to ceftriaxone, but not to erythromycin. She was started on vancomycin empirically on admission. Change antibiotics to ceftriaxone 1 gram daily (05/28). Monitor closely for history of Keflex allergy. She tolerated ceftriaxone uneventfully. She reports significant improvement of pain and discomfort of pharynx, although enlargement of tonsils were unchanged. She remained afebrile and no significant leukocytosis. On 05/29, cefdinir 600 mg was given in the morning, and observed closely again. She tolerated this medications also without any side effects or reaction. Plan to continue Cefdinir 600 mg po qd for 8 more days, total of 10 days of antibiotics treatment. I'm not very convinced that this is bacterial infection , but she reports significant improvement after abx treatment, and since we started the course of abx, plan to compete its course. Plan to follow up with PCP's office in 5 to 7 days. #2 DM II. Levemir 30 units bid and add Novolog sliding scale. #3 Essential hypertension. Blood pressure is stable. Continue current medications. #4 Fibromyalgia. #5 Morbid obesity with BMI 50. Life style modification. Continue calorie restricted diet for diabetes. #6 JOSIE. VTE prophylaxis: Lovenox. GI prophylaxis: ppi po. She is full code. Disposition: Home in 1 to 2 days. Discharge Diet: Low fat/ Low Cholesterol, 1800 Calorie Control Diet Discharge Activity: Return to Normal Activity Home Medications: Medications to take at Discharge Amlodipine [Norvasc] 1 tab PO DAILY 05/27/17 Aspirin [Aspir-Low] 1 tab PO DAILY 05/27/17 Clonidine HCl 1 tab PO BID 05/27/17 Cyclobenzaprine [Flexeril] 10 mg PO QHS PRN 05/27/17 DiphenhydrAMINE [Benadryl] 25 - 50 mg PO BID PRN PRN 05/27/17 Insulin Glargine [Lantus SoloStar Pen] 50 mg IM BID 05/27/17 Metformin HCl 1,000 mg PO BID 05/27/17 Omeprazole [Prilosec] 40 mg PO DAILY 05/27/17 Probiotic 1 tab PO DAILY 05/27/17 Albuterol Aerosols [Ventolin Aerosols] 2.5 mg INHALATION Q4H PRN PRN 05/28/17 Albuterol Inhaler [Ventolin Hfa] 2 puff INHALATION Q4H PRN PRN 05/28/17 Benzonatate 200 mg PO TID PRN 05/28/17 Buspirone HCl 30 mg PO BID 05/28/17 Hydrocodone/Acetaminophen [[place] 5-325 Tablet] 1 each PO BID PRN 05/28/17 Hydrocortisone 2.5% Crm [Hytone] 1 applic TOPICAL DAILY PRN 05/28/17 Naproxen 500 mg PO BID 05/28/17 Pimecrolimus [Elidel] 1 applic TOPICAL BID 05/28/17 Polyethylene Glycol 3350 [Miralax] 17 gm PO DAILY 05/28/17 Simethicone 180 mg PO BID 05/28/17 proMETHazine tablet [Phenergan tablet] 25 mg PO Q6H PRN PRN 05/28/17 Cefdinir 600 mg PO DAILY #16 cap 05/29/17 Following Prescrptions Were Given to Patient: Cefdinir 600 mg PO DAILY #16 cap Primary Care Physician: Cynthia Mosqueda MD [Primary Care Provider] - Please follow up with your Primary Care Physician in: 5 to 7 days. Disposition: Home Patient Condition:: Stable Medical Necessity - Tobacco Use Smoking Status: Never smoker Tobacco Use: Non-smoker Meaningful Use Info Meaningful Use Diagnoses (Choose all that apply): None applicable Code Visit OBSV E&M: 46186 Observation care discharge
== END 2017-05-29 15:40 | disposition home or self-care (01) ==
LOC: ED 19:02 → MS2 20:17
PROVIDERS: Admitting Provider Internal Medicine; Emergency Provider Emergency Medicine; Family Provider Internal Medicine; PCP Internal Medicine; Visit Provider Hospitalist
DX: J03.00 Acute streptococcal tonsillitis, unspecified (principal); G47.33 Obstructive sleep apnea (adult) (pediatric); K21.9 Gastro-esophageal reflux disease without esophagitis; I10 Essential (primary) hypertension; E11.9 Type 2 diabetes mellitus without complications; E78.5 Hyperlipidemia, unspecified; J45.909 Unspecified asthma, uncomplicated; M79.7 Fibromyalgia; E66.01 Morbid (severe) obesity due to excess calories; Z68.43 Body mass index [BMI] 50.0-59.9, adult; Z71.3 Dietary counseling and surveillance; Z79.899 Other long term (current) drug therapy; Z79.4 Long term (current) use of insulin; Z79.82 Long term (current) use of aspirin
CPT/HCPCS: 36415; 80048; 80053; 80061; 82962; 83036; 83735; 84100; 85025; 85027; 87040; 87070; 87077; 87205; 87641; 94762; 96361; 96365; 96366; 96367; 96372; 96375; 97802; 99218; 99284; J7030; J7050; A4216; G0378

== ENCOUNTER → 2018-12-31 15:33 | Outpatient (CLI) | payer MEDICARE, SELFPAY ==
[2018-12-31 16:44] LABS: D-Dimer Quantitative (DVT/PE) 0.92 FEU/ug/m (0.27-0.49)
== END ==
PROVIDERS: Family Provider Internal Medicine; PCP Internal Medicine; Referring Provider Emergency Medicine; Visit Provider Emergency Medicine
DX: R07.81 Pleurodynia (principal)
CPT/HCPCS: 85379

== ENCOUNTER 2018-12-31 17:35 | Emergency (ER) | payer MEDICARE, SELFPAY ==
[2018-12-31 17:36] VITALS: BP 211/119; PULSE 110; RESP 16; TEMP 36.3; O2SAT 97; BMI 50.8
--- NOTE | 2018-12-31 17:48 | CT_ITS ---
STUDY: CTA CHEST REASON FOR EXAM: Female, 63 years old. Elevated d-dimer. Abnormal laboratories. RADIATION DOSAGE (If Supplied By Facility): CTDIvol = ( 11.48 ) mGy, DLP = ( 544.21 ) mGycm TECHNIQUE: The examination was performed with the intravenous administration of IV Isovue 370 100. Post-processing of the angiographic images was performed, with multiplanar reformation and 3D reconstruction. Individualized dose optimization techniques were used for this CT. COMPARISON: None. FINDINGS: Normal enhancement of the main pulmonary artery and right and left pulmonary arteries. Normal enhancement of the bilateral peripheral pulmonary arteries. There is no demonstrated pulmonary embolism. There is atherosclerotic changes of the thoracic aorta without aneurysm. There is no demonstrated aortic dissection. Normal heart and pericardium. There are calcifications of the coronary arteries. Normal mediastinum. Normal hilar regions. Normal visualized trachea and bronchi. The lungs are well expanded. Normal pulmonary parenchyma. Normal pleura. Normal chest wall structures. Normal osseous structures. Hepatosplenomegaly.. There is a right adrenal adenoma. CT/CTA Chest W/WO Contrast IMPRESSION: Normal CTA chest examination, without a demonstrated pulmonary embolism or arterial dissection. Electronically Signed: Ismael Draper DO at 19:18 EDT Tel [phone], Service support ,
--- NOTE | 2018-12-31 17:48 | EKG12_ITS ---
Test Reason : Blood Pressure : / mmHG Vent. Rate : 099 BPM Atrial Rate : 099 BPM P-R Int : 180 ms QRS Dur : 086 ms QT Int : 354 ms P-R-T Axes : 044 007 072 degrees QTc Int : 454 ms Normal sinus rhythm Cannot rule out Inferior infarct , age undetermined Abnormal ECG Confirmed by IBAN JIMÉNEZ, KARLA ([id number]), state editor ACOSTA JOSHUA ([id number]) on 01/03/2019 10:05:14 AM Referred By: ARIANNA Confirmed By:KARLA FERRERA MD
--- NOTE | 2018-12-31 17:54 | ED.DCSUM_ITS ---
History of Present Illness Chief Complaint: Abn Labs Informant: Patient Onset: Days Context: Gradual Onset Timing: Intermittent Current Severity: Moderate Maximum Severity: Moderate Narrative: The patient is a 63-year-old female with history of hypertension and diabetes who presents to the emergency department left-sided chest pain that is worse when she moves or breathes. The patient states that she was diagnosed with pleurisy earlier this month. She states that she improved with indomethacin. She states that the symptoms returned about 2 days ago. She states it does not feel nearly as severe. However, she states when she takes a deep breath, she feels like something is catching and she gets pain in her left chest. She denies exertional dyspnea. She denies any nausea or vomiting. She denies any history of coronary vascular disease. Prior similar symptoms: Yes Recent Illness/Hospitalization: No Past Medical History - Allergies and Home Meds Allergies/Adverse Reactions: Allergies adhesive tape Allergy (Verified 12/31/18 18:50) Other cephalexin monohydrate [From Keflex] Allergy (Verified 12/31/18 18:50) Other DIME SIZE SPOTS ON LEGS ciprofloxacin [From Cipro] Allergy (Verified 12/31/18 18:50) Hives ciprofloxacin HCl [From Cipro] Allergy (Verified 12/31/18 18:50) Hives citalopram hydrobromide [From Celexa] Allergy (Verified 12/31/18 18:50) Unknown clarithromycin [From Biaxin] Allergy (Verified 12/31/18 18:50) Unknown codeine Allergy (Verified 12/31/18 18:50) Unknown diltiazem HCl [From Cardizem] Allergy (Verified 12/31/18 18:50) Unknown fluoxetine HCl [From Prozac] Allergy (Verified 12/31/18 18:50) Unknown fluticasone [From Advair Diskus] Allergy (Verified 12/31/18 18:50) Swelling fluticasone propionate [From Advair Diskus] Allergy (Verified 12/31/18 18:50) Other hydrochlorothiazide [From Hyzaar] Allergy (Verified 12/31/18 18:50) Unknown ipratropium bromide [From Atrovent] Allergy (Verified 12/31/18 18:50) Unknown labetalol Allergy (Verified 12/31/18 18:50) Rash lamotrigine [From Lamictal] Allergy (Verified 12/31/18 18:50) Unknown latex Allergy (Verified 12/31/18 18:50) Unknown liraglutide [From Victoza] Allergy (Verified 12/31/18 18:50) Unknown losartan potassium [From Hyzaar] Allergy (Verified 12/31/18 18:50) Unknown meloxicam [From Mobic] Allergy (Verified 12/31/18 18:50) Other nitrofurantoin [From Macrobid] Allergy (Verified 12/31/18 18:50) Hives nitrofurantoin macrocrystalline [From Macrobid] Allergy (Verified 12/31/18 18:50) Hives Penicillins Allergy (Verified 12/31/18 18:50) Rash quetiapine fumarate [From Seroquel] Allergy (Verified 12/31/18 18:50) Unknown salmeterol [From Advair Diskus] Allergy (Verified 12/31/18 18:50) Swelling salmeterol xinafoate [From Advair Diskus] Allergy (Verified 12/31/18 18:50) Other sertraline HCl [From Zoloft] Allergy (Verified 12/31/18 18:50) Unknown simvastatin [From Zocor] Allergy (Verified 12/31/18 18:50) Unknown topiramate [From Topamax] Allergy (Verified 12/31/18 18:50) Unknown verapamil HCl [From Covera-HS] Allergy (Verified 12/31/18 18:50) Unknown zonisamide [From Zonegran] Allergy (Verified 12/31/18 18:50) Shortness of breath acetaminophen [From Lortab] Adverse Reaction (Verified 12/31/18 18:50) Nausea hydrocodone bitartrate [From Lortab] Adverse Reaction (Verified 12/31/18 18:50) Nausea ramipril [From Altace] Adverse Reaction (Verified 12/31/18 18:50) Laryngospasms sulfamethoxazole [From Septra] Adverse Reaction (Verified 12/31/18 18:50) Unknown trimethoprim [From Septra] Adverse Reaction (Verified 12/31/18 18:50) Unknown ZONEGRAM Allergy (Uncoded 12/31/18 18:50) Unknown Primary Care Physician: Cynthia Mosqueda MD [Primary Care Provider] - Prior records reviewed: Yes Past Medical History: - - Diabetes, hypertension, hyperlipidemia Surgical History: cholecystectomy, hysterectomy - still has 1 ovary......can not tell me why she had a hysterectomy but knows that she did not have cancer, - - surgery on the L matstoid, CT surgery on the RUE Smoking Status: Never smoker - Family History Maternal Family History: Reports: - - mother with emphysema Paternal Family History: Reports: Heart Disease Review of Systems General: Denies: Chills, Fever, Sweats Eyes: Denies: Visual changes - bilaterally, Diplopia ENT: Denies: Rhinorrhea, Sore throat Cardiovascular: Reports: Chest pain. Denies: Palpitations Respiratory: Denies: Dyspnea, Cough, Dyspnea on exertion Gastrointestinal: Denies: Abdominal pain, Nausea, Vomiting, Diarrhea, Melena, Hematochezia Genitourinary: Denies: Dysuria, Hematuria, Frequency Musculoskeletal: Denies: Back pain, Extremity Pain Skin: Denies: Rash, Wounds Neurological: Denies: Headache, Weakness, Numbness Physical Exam Vital Signs/Narrative: Vital Signs Temp Pulse Resp BP Pulse Ox 12/31/18 17:36 97.3 F L 110 H 16 211/119 H 97 Inital Vital Signs reviewed: Yes General: Well nourished, Well developed, No Acute Distress Head: Normocephalic, Atraumatic Eyes: Perrl, EOMI ENT: Moist mucous membranes, No rhinorrhea Neck: Supple, Nontender Cardiovascular: Regular rate, Regular rhythm, No murmurs Respiratory: No distress, CTA bilaterally, Chest nontender Abdomen: Soft, Nontender, Nondistended, Normal bowel sounds Back: Nontender, Normal Inspection Extremities: Nontender, No edema Skin: Normal color, No rash Neurological: Alert, Oriented x3, Cranial nerves II-XII grossly intact, Normal Strength, Normal Sensation Psychological: Normal affect, Normal Mood Diagnostic/Tx/Re-eval Clinical Impression(s) from Imaging Studies Chest CTA 12/31/18 17:48 IMPRESSION: Normal CTA chest examination, without a demonstrated pulmonary embolism or arterial dissection. Electronically Signed: Ismael Draper DO at 19:18 EDT Tel [phone], Service support , Abnormal Lab Results 12/31/18 12/31/18 18:05 18:05 WBC 13.0 H RBC 4.95 Hgb 12.9 Hct 40.2 MCV 81.2 MCH 26.1 L MCHC 32.1 RDW Std Deviation 43.9 RDW Coeff of [place] 15.1 H Plt Count 254 MPV 11.3 Immature Gran % (Auto) 0.500 Neut % (Auto) 63.8 Lymph % (Auto) 25.3 [place] % (Auto) 6.9 Eos % (Auto) 2.8 Baso % (Auto) 0.7 Absolute Neuts (auto) 8.3 H Absolute Lymphs (auto) 3.29 Nucleated RBC % 0 Sodium 138 Potassium 3.7 Chloride 103 Carbon Dioxide 27.0 Anion Gap 8 BUN 20 H Creatinine 0.81 Estim Creat Clear Calc 60.33 Est GFR (MDRD) Af Amer 92 Est GFR (MDRD) Non-Af 76 BUN/Creatinine Ratio 24.7 H Glucose 197 H Calcium 9.2 Troponin I < 0.015 - EKG Initial EKG Interpretation: Sinus Rhythm, No Acute Injury Pattern Prior: Unchanged - Medical Decision Making Patient presents with left-sided chest pain is worse with breathing and moving. There is a reproducible component. EKG was obtained which showed no evidence of acute ischemia. Patient's cardiac enzymes were negative and she is had this pain for greater than 24 hours. She has no history of coronary vascular disease. I really do not suspect acute coronary syndrome. She did have an elevated d-dimer so CTA was performed. There is no evidence of dissection, pulmonary embolus, pneumonia, or rib fracture. On reevaluation, the patient is pain-free. She states that she has had good pain control with her indomethacin. I do feel that she is safe for outpatient therapy. She will be discharged home. Impression 1. Pleurisy ED Disposition - Plan for ED Patient: Disposition: Home or Assisted Living Instructions: Pleurisy Referrals: Cynthia Mosqueda MD [Primary Care Provider] -
--- NOTE | 2018-12-31 17:54 | NURSING ---
NO OLD EKGS
[2018-12-31 17:55] VITALS: O2SAT 95
[2018-12-31] MEDS: Aspirin 81 MG TAB.CHEW 324 MG PO (17:57)
[2018-12-31] MEDS: 0.9% Normal Saline 1,000 ML 150 ML IV (18:05)
[2018-12-31 18:22] LABS: Absolute Lymphocyte Count 3.29 X10^3/uL (0.83-4.51); Absolute Neutrophil Count 8.3 X10^3/uL (2.0-7.7); Basophil# 0.09 X10^3/uL; Basophil% 0.7 % (0-1); Eosinophil# 0.37 X10^3/uL; Eosinophils% 2.8 % (0-5); Hematocrit 40.2 % (37-47); Hemoglobin 12.9 g/dL (12.0-15.0); Lymphocyte # 3.29 X10^3/ul (4.0); Lymphocyte % 25.3 % (19-41); Mean Corp Hgb Conc 32.1 g/dL (32-36); Mean Corpuscular Hgb 26.1 pg (27.0-32.0); Mean Corpuscular Volume 81.2 fL (81-99); Mean Platelet Vol. 11.3 fl (6.2-12.0); Monocyte# 0.89 X10^3/uL; Monocyte% 6.9 % (0-10); NRBC Flagged by Analyzer 0 % (0-5); Neutrophil # 8.28 X10^3/uL (2.7-7.7); Neutrophil % 63.8 % (47-70); Platelet Count 254 K/mm3 (150-450); RBC Distribution Width CV 15.1 % (11.6-14.6); RBC Distribution Width SD 43.9 fl (35.1-43.9); Red Blood Count 4.95 M/mm3 (4.2-5.4)
[2018-12-31 18:34] LABS: Anion Gap 8 (5-15); BUN 20 mg/dL (7-18); BUN/Creat Ratio 24.7 RATIO (10-20); Calcium,Total 9.2 mg/dL (8.5-10.1); Chloride 103 mmol/L (98-107); Creatinine, Serum 0.81 mg/dL (0.55-1.02); EST Glomerular Filtration Rate 76 mL/min (>60); Est Glom Filt Rate - Afr Amer 92 mL/min (>60); Estimated Creatinine Clearance 60.33 ml/min; Glucose 197 mg/dL (74-106); Potassium 3.7 mmol/L (3.5-5.1); Sodium Level 138 mmol/L (136-145)
[2018-12-31 19:07] VITALS: BP 178/87; PULSE 86; RESP 19; O2SAT 95
[2018-12-31 19:35] VITALS: BP 178/82; PULSE 92; RESP 18; O2SAT 97
== END 2018-12-31 19:35 | disposition home or self-care (01) ==
PROVIDERS: Emergency Provider Emergency Medicine; Family Provider Internal Medicine; PCP Internal Medicine
DX: R09.1 Pleurisy (principal); R79.89 Other specified abnormal findings of blood chemistry; I10 Essential (primary) hypertension; E11.9 Type 2 diabetes mellitus without complications; E78.5 Hyperlipidemia, unspecified; Z79.82 Long term (current) use of aspirin; Z79.4 Long term (current) use of insulin; Z79.84 Long term (current) use of oral hypoglycemic drugs; Z79.899 Other long term (current) drug therapy
CPT/HCPCS: 71275; 80048; 84484; 85025; 85379; 93005; 96360; 96361; 99285; J7030; Q9967

== ENCOUNTER 2019-11-18 13:11 | Emergency (ER) | payer MEDICARE, SELFPAY ==
[2019-11-18 13:12] VITALS: BP 158/93; PULSE 96; RESP 18; TEMP 36.5; O2SAT 98; BMI 50.8
--- NOTE | 2019-11-18 13:26 | VDLE_ITS ---
Reason For Study: Pain RIGHT GSV is normal. CFV is compressible, spontaneous, phasic, competent and demonstrates normal augmentation. FV is compressible, spontaneous, phasic, competent and demonstrates normal augmentation. POP V is compressible, spontaneous, phasic, competent and demonstrates normal augmentation. T/P Trunk is compressible. PTV is compressible. RT PerV is compressible. Nonvascularized structure noted in the right popliteal space measuring approximently 1.56 x 1.53 x 1.97 cm. Posterior to popliteal artery and vein. Procedure Exam performed portable in ED. A preliminary report was called and/or faxed to [facility]. Interpretation Summary There is no evidence of right lower extremity deep vein thrombosis. Right great saphenous vein appears patent and compressible segmentally. Non vascular right popliteal 1.56 x 1.53 x 1.97 structure consistent with a Dumont's cyst but clinical correlation would be appropriate. Ordering Physician: Meron Hickey Referring Physician: Cynthia Mosqueda M.D. Performed By: Jessica Woods RVT
--- NOTE | 2019-11-18 13:31 | ED.DCSUM_ITS ---
History of Present Illness Informant: Patient Onset: Days Timing: Continuous Narrative: 63 year old female with past medical history of HTN, HLD, DM2, GERD, asthma presents with complaint of right leg pain. She has had pain behind her right knee for the last week. No trauma or falls. No swelling or erythema. [place] post [place] with her cane when she felt increased pain in the back of her right knee and the pain radiated up her thigh. Denies fevers, chills, nausea, vomiting, erythema, cough, chest pain, shortness of breath, hormone use, recent surgery or travel, or history of DVT/PE. <Meron Hickey - Last Filed: 11/18/19 14:14> <Kemal Chávez - Last Filed: 11/18/19 15:25> Chief Complaint: Lower Extremity Injury Past Medical History Past Medical History: - - Hypertension, hyperlipidemia, type 2 diabetes, asthma, GERD, osteoarthritis Surgical History: cholecystectomy, hysterectomy - still has 1 ovary......can not tell me why she had a hysterectomy but knows that she did not have cancer, - - surgery on the L matstoid, CT surgery on the RUE Smoking Status: Never smoker - Family History Maternal Family History: Reports: - - mother with emphysema Paternal Family History: Reports: Heart Disease <Meron Hickey - Last Filed: 11/18/19 14:14> <Kemal Chávez - Last Filed: 11/18/19 15:25> - Allergies and Home Meds Allergies/Adverse Reactions: Allergies adhesive tape Allergy (Verified 11/18/19 13:15) Other cephalexin monohydrate [From Keflex] Allergy (Verified 11/18/19 13:15) Other DIME SIZE SPOTS ON LEGS ciprofloxacin [From Cipro] Allergy (Verified 11/18/19 13:15) Hives ciprofloxacin HCl [From Cipro] Allergy (Verified 11/18/19 13:15) Hives citalopram hydrobromide [From Celexa] Allergy (Verified 11/18/19 13:15) Unknown clarithromycin [From Biaxin] Allergy (Verified 11/18/19 13:15) Unknown codeine Allergy (Verified 11/18/19 13:15) Unknown diltiazem HCl [From Cardizem] Allergy (Verified 11/18/19 13:15) Unknown fluoxetine HCl [From Prozac] Allergy (Verified 11/18/19 13:15) Unknown fluticasone [From Advair Diskus] Allergy (Verified 11/18/19 13:15) Swelling fluticasone propionate [From Advair Diskus] Allergy (Verified 11/18/19 13:15) Other hydrochlorothiazide [From Hyzaar] Allergy (Verified 11/18/19 13:15) Unknown ipratropium bromide [From Atrovent] Allergy (Verified 11/18/19 13:15) Unknown labetalol Allergy (Verified 11/18/19 13:15) Rash lamotrigine [From Lamictal] Allergy (Verified 11/18/19 13:15) Unknown latex Allergy (Verified 11/18/19 13:15) Unknown liraglutide [From Victoza] Allergy (Verified 11/18/19 13:15) Unknown losartan potassium [From Hyzaar] Allergy (Verified 11/18/19 13:15) Unknown meloxicam [From Mobic] Allergy (Verified 11/18/19 13:15) Other nitrofurantoin [From Macrobid] Allergy (Verified 11/18/19 13:15) Hives nitrofurantoin macrocrystalline [From Macrobid] Allergy (Verified 11/18/19 13:15) Hives Penicillins Allergy (Verified 11/18/19 13:15) Rash quetiapine fumarate [From Seroquel] Allergy (Verified 11/18/19 13:15) Unknown salmeterol [From Advair Diskus] Allergy (Verified 11/18/19 13:15) Swelling salmeterol xinafoate [From Advair Diskus] Allergy (Verified 11/18/19 13:15) Other sertraline HCl [From Zoloft] Allergy (Verified 11/18/19 13:15) Unknown simvastatin [From Zocor] Allergy (Verified 11/18/19 13:15) Unknown topiramate [From Topamax] Allergy (Verified 11/18/19 13:15) Unknown verapamil HCl [From Covera-HS] Allergy (Verified 11/18/19 13:15) Unknown zonisamide [From Zonegran] Allergy (Verified 11/18/19 13:15) Shortness of breath acetaminophen [From Lortab] Adverse Reaction (Verified 11/18/19 13:15) Nausea hydrocodone bitartrate [From Lortab] Adverse Reaction (Verified 11/18/19 13:15) Nausea ramipril [From Altace] Adverse Reaction (Verified 11/18/19 13:15) Laryngospasms sulfamethoxazole [From Septra] Adverse Reaction (Verified 11/18/19 13:15) Unknown trimethoprim [From Septra] Adverse Reaction (Verified 11/18/19 13:15) Unknown ZONEGRAM Allergy (Uncoded 11/18/19 13:15) Unknown Primary Care Physician: Leah Leal DO [STAFF PHYSICIAN] - Review of Systems General: Denies: Chills, Fever, Sweats Eyes: Denies: Visual changes - bilaterally, Diplopia ENT: Denies: Rhinorrhea, Sore throat Cardiovascular: Denies: Chest pain, Palpitations Respiratory: Denies: Dyspnea, Cough, Dyspnea on exertion Gastrointestinal: Denies: Abdominal pain, Nausea, Vomiting, Diarrhea, Melena, Hematochezia Genitourinary: Denies: Dysuria, Hematuria, Frequency Musculoskeletal: Reports: Extremity Pain. Denies: Back pain, Swelling Skin: Denies: Rash, Wounds Neurological: Denies: Headache, Weakness, Parasthesia, Numbness Psych: Denies: Depression, Anxiety <Meron Hickey - Last Filed: 11/18/19 14:14> Physical Exam Vital Signs/Narrative: Vital Signs Temp Pulse Resp BP Pulse Ox 11/18/19 13:12 97.7 F L 96 18 158/93 H 98 Inital Vital Signs reviewed: Yes General: Well nourished, Well developed, No Acute Distress Head: Normocephalic, Atraumatic Eyes: Perrl, EOMI ENT: Moist mucous membranes, No rhinorrhea Neck: Supple Cardiovascular: Regular rate, Regular rhythm, No murmurs Respiratory: No distress, CTA bilaterally, Chest nontender Back: Nontender, Normal Inspection Extremities: No edema, Tenderness - Significant right calf and right popliteal tenderness, no swelling or overlying skin changes. No bony tenderness or joint laxity. Full range of motion. 2+ posterior tibial pulse. Skin: Normal color, No rash Neurological: Alert, Oriented x3, Cranial nerves II-XII grossly intact, Normal Strength, Normal Sensation Psychological: Normal affect, Normal Mood <EdelmiraMeron - Last Filed: 11/18/19 14:14> Vital Signs/Narrative: Vital Signs Temp Pulse Resp BP Pulse Ox 11/18/19 15:15 84 18 124/74 H 99 11/18/19 13:12 97.7 F L 96 18 158/93 H 98 <Kemal Chávez - Last Filed: 11/18/19 15:25> Diagnostic/Tx/Re-eval Ultrasound of right lower extremity negative for DVT but did note Dumont's cyst - Medical Decision Making Patient appears well nontoxic. Vital signs within normal limits. Neurovascularly intact on exam. Ultrasound of the right lower extremity was ne gative for DVT but did note Dumont's cyst in the region of pain. This is most likely the cause of her symptoms. There was no trauma or bony tenderness and no indication for plain films. Patient was given orthopedic follow-up, a walker, and Senath to take as needed. She was agreeable with this plan and discharged home in stable condition. <Meron Hickey - Last Filed: 11/18/19 14:14> - Medical Decision Making I saw the patient with the physician secretary administrative assistant. She has pain behind her right knee. Denies any history of DVT. No other complaints. Patient has palpation with light touch posterior to her right knee. Range of motion intact. Neurovascular intact distally no laxity. Otherwise unremarkable. Ultrasound shows no DVT. She has a Dumont's cyst. I believe this is causing her pain. Nothing to suggest fracture, infection, neurovascular compromise. Patient will be referred for outpatient follow-up. She was given a walker, pain medicine, and referred to orthopedics. <Kemal Chávez - Last Filed: 11/18/19 15:25> ED Disposition <Meron Hickey - Last Filed: 11/18/19 14:14> <Kemal Chávez - Last Filed: 11/18/19 15:25> - Plan for ED Patient: Disposition: Home or Assisted Living Diagnosis: Dumont cyst Instructions: ED Cyst Dumont Prescriptions: Hydrocodone/Acetaminophen [Senath 5-325 Tablet] 1 ea PO Q8 PRN 3 Days #9 tab PRN Reason: Joint Stiffness Transmission Status: Received by [facility] Referrals: Leah Leal DO [STAFF PHYSICIAN] -
[2019-11-18 15:15] VITALS: BP 124/74; PULSE 84; RESP 18; O2SAT 99
== END 2019-11-18 15:16 | disposition home or self-care (01) ==
PROVIDERS: Emergency Provider Physician Assistant; PCP Internal Medicine
DX: M71.21 Synovial cyst of popliteal space [Baker], right knee (principal); I10 Essential (primary) hypertension; E78.5 Hyperlipidemia, unspecified; E11.9 Type 2 diabetes mellitus without complications; K21.9 Gastro-esophageal reflux disease without esophagitis; M19.90 Unspecified osteoarthritis, unspecified site; J45.909 Unspecified asthma, uncomplicated; Z90.49 Acquired absence of other specified parts of digestive tract; Z79.4 Long term (current) use of insulin; Z79.82 Long term (current) use of aspirin; Z79.84 Long term (current) use of oral hypoglycemic drugs; Z79.899 Other long term (current) drug therapy
CPT/HCPCS: 93971; 99282

== ENCOUNTER 2020-09-21 20:08 | Emergency (ER) | payer MEDICARE, SELFPAY ==
[2020-09-21 20:08] VITALS: BP 135/110; PULSE 99; RESP 18; TEMP 36.5; O2SAT 97; BMI 44.4
--- NOTE | 2020-09-21 20:52 | CT_ITS ---
EXAM: CT HEAD WITHOUT INTRAVENOUS CONTRAST : 1955 CLINICAL INDICATION: head injury TECHNIQUE: Multiple axial images were obtained of the head without intravenous contrast. This CT exam was performed using one or more of the following dose reduction techniques: automated exposure control, adjustment of the mA and/or kV according to patient size, and/or use of iterative reconstruction technique. This report was created using [employer] report generation technology. COMPARISON: None. FINDINGS: BRAIN AND EXTRA-AXIAL SPACES: Unremarkable. No intra- or extra-axial hemorrhage. No evidence of acute infarct. No intracranial mass or mass effect. There is preservation of the [place]/white matter interface. Posterior fossa structures are unremarkable. Ventricles are appropriate for age. No hydrocephalus. Basal cisterns are patent. BONES/JOINTS: Unremarkable. No discrete lytic or blastic abnormalities. SINUSES: Unremarkable as visualized. Clear. MASTOID AIR CELLS: Unremarkable. Clear. ORBITS: Visualized globes, extraocular muscles, optic nerves and retrobulbar fat appear unremarkable. CT/Brain/Head without Contrast IMPRESSION: Negative head/brain CT without intravenous contrast. Individualized dose optimization techniques were used for this CT. at 2157 Reported and signed by: Bruce Velasquez MD Electronically Signed: Bruce Velasquez MD at 21:56 EDT Tel , Service support ,
--- NOTE | 2020-09-21 20:54 | EDS_ITS ---
HPI History of Present Illness Chief Complaint: Fall Informant: patient Narrative Narrative: Patient is a 65-year-old female with history of fibromyalgia, GERD, asthma, diabetes mellitus type 2, hypertension and nonspecific tremor presenting for evaluation of right knee pain. Patient states her chair fell out from underneath her on Thursday, 3 days ago. She hit the back of her head and her right knee. Since then she had pain all over but specifically in her right knee and in the back of her head. She denies any associated loss of consciousness. Patient notes that she has been having recurrent UTIs and issues with bladder incontinence. She was recently on a 10-day course of Macrobid. She states since the fall whenever she tries to get out of bed her pain becomes severe and she started to have urinary incontinence again. She is on methenamine and s odium salicylate which was helping with her incontinence but has not been helping since her fall. Patient states she has followed up with urology. She denies any associated back pain. She denies any saddle anesthesia. No fever or chills. No other complaints at this time. [facility] Medical History (Updated 09/21/20 @ 23:[address] Cee Cardenas, ) Anxiety Asthma Depression Diabetes History of left heart catheterization Hyperlipidemia Hypertension Non-smoker Tremor Home Medications amlodipine 1 tab PO DAILY 05/27/17 [History Last Taken 05/27/17 16:00] aspirin [Aspir-Low] 1 tab PO BID 05/27/17 [History Last Taken 05/27/17 08:00] clonidine HCl 1 tab PO BID 05/27/17 [History Last Taken Unknown] cyclobenzaprine 10 mg PO QHS PRN 05/27/17 [History Last Taken Unknown] metformin 1,000 mg PO BID 05/27/17 [History Last Taken 05/27/17 16:00] albuterol sulfate 2.5 mg INHALATION Q4H PRN PRN 05/28/17 [History Last Taken Unknown] albuterol sulfate [Ventolin HFA] 2 puff INHALATION Q4H PRN PRN 05/28/17 [History Last Taken Unknown] buspirone 30 mg PO BID 05/28/17 [History Last Taken Unknown] ibuprofen 800 mg PO TID PRN PRN 11/18/19 [History Last Taken Unknown] insulin degludec [Tresiba FlexTouch U-200] 56 unit SUBCUT QHS 09/21/20 [History Last Taken Unknown] Allergy/AdvReac Type Severity Reaction Status Date / Time adhesive tape Allergy Other Verified 09/21/20 20:13 cephalexin monohydrate Allergy Other Verified 09/21/20 20:13 [From Keflex] ciprofloxacin [From Cipro] Allergy Hives Verified 09/21/20 20:13 ciprofloxacin HCl Allergy Hives Verified 09/21/20 20:13 [From Cipro] citalopram hydrobromide Allergy Unknown Verified 09/21/20 20:13 [From Celexa] clarithromycin [From Biaxin] Allergy Unknown Verified 09/21/20 20:13 codeine Allergy Unknown Verified 09/21/20 20:13 diltiazem HCl [From Cardizem] Allergy Unknown Verified 09/21/20 20:13 fluoxetine HCl [From Prozac] Allergy Unknown Verified 09/21/20 20:13 fluticasone Allergy Swelling Verified 09/21/20 20:13 [From Advair Diskus] fluticasone propionate Allergy Other Verified 09/21/20 20:13 [From Advair Diskus] hydrochlorothiazide Allergy Unknown Verified 09/21/20 20:13 [From Hyzaar] ipratropium bromide Allergy Unknown Verified 09/21/20 20:13 [From Atrovent] labetalol Allergy Rash Verified 09/21/20 20:13 lamotrigine [From Lamictal] Allergy Unknown Verified 09/21/20 20:13 latex Allergy Unknown Verified 09/21/20 20:13 liraglutide [From Victoza] Allergy Unknown Verified 09/21/20 20:13 losartan potassium Allergy Unknown Verified 09/21/20 20:13 [From Hyzaar] meloxicam [From Mobic] Allergy Other Verified 09/21/20 20:13 nitrofurantoin Allergy Hives Verified 11/18/19 13:15 [From Macrobid] nitrofurantoin Allergy Hives Verified 11/18/19 13:15 macrocrystalline [From Macrobid] Penicillins Allergy Rash Verified 09/21/20 20:13 quetiapine fumarate Allergy Unknown Verified 09/21/20 20:13 [From Seroquel] salmeterol Allergy Swelling Verified 09/21/20 20:13 [From Advair Diskus] salmeterol xinafoate Allergy Other Verified 09/21/20 20:13 [From Advair Diskus] sertraline HCl [From Zoloft] Allergy Unknown Verified 09/21/20 20:13 simvastatin [From Zocor] Allergy Unknown Verified 09/21/20 20:13 topiramate [From Topamax] Allergy Unknown Verified 09/21/20 20:13 verapamil HCl Allergy Unknown Verified 09/21/20 20:13 [From Covera-HS] zonisamide [From Zonegran] Allergy Shortness Verified 09/21/20 20:13 of breath acetaminophen [From Lortab] AdvReac Nausea Verified 09/21/20 20:13 hydrocodone bitartrate AdvReac Nausea Verified 09/21/20 20:13 [From Lortab] ramipril [From Altace] AdvReac Laryngospas Verified 09/21/20 20:13 ms sulfamethoxazole AdvReac Unknown Verified 09/21/20 20:13 [From Septra] trimethoprim [From Septra] AdvReac Unknown Verified 09/21/20 20:13 ZONEGRAM Allergy Unknown Uncoded 11/18/19 13:15 Surgical History (Updated 09/21/20 @ 21:08 by Andriy Patrick) History of bladder repair surgery History of carpal tunnel release History of cholecystectomy History of hysterectomy Social History Smoking Status: Never smoker ROS ROS ED Constitutional Constitutional ED: Denies chills or fever(s) Eyes Eyes: Denies change in vision ENT ENT ED: Denies rhinorrhea or sore throat Cardiovascular Cardiovascular: Denies chest pain or palpitations Respiratory/Chest Respiratory/Chest: Denies cough or dyspnea Gastrointestinal Gastrointestinal: Denies abdominal pain, nausea or vomiting Genitourinary Genitourinary ED: Reports urinary frequency and other Details: Urinary incontinence ; Denies dysuria or hematuria Musculoskeletal Musculoskeletal: Reports other Details: Right knee pain ; Denies arthralgias or myalgias Integumentary Denies Abrasions or rash Neurologic Neurologic: Reports headache(s); Denies paresthesias or weakness Psychiatric Psychiatric: Denies anxiety or depression EXAM Physical Exam Const Vital Signs: 09/21/20 20:08 09/21/20 21:18 Temperature 97.7 F L Temperature Source Temporal Pulse Rate 99 88 Respiratory Rate 18 15 Blood Pressure 135/110 H 156/75 H Blood Pressure Mean 118 102 Pulse Ox 97 97 Oxygen Delivery Method Room Air Room Air Positive well nourished, well developed and obese General Appearance ED: well developed Nutritional Appearance: obese HEENT Reports TM's clear atraumatic; Negative for tenderness Tympanic Membrane ED: Yes TM's clear Eyes PERRL and EOMs intact bilaterally Neck full ROM Neck Narrative: No midline tenderness Chest Wall inspection of chest normal Resp normal respiratory effort and clear to auscultation bilaterally Cardio regular rhythm and no murmurs Cardio Narrative: 2+ bilateral DP pulses Rate: regular rate GI normal to inspection, nondistended, normoactive bowel sounds Back/Spine normal to inspection and no thoracic nor lumbar tenderness General Back: Negative for CVA tenderness Extremity normal to inspection Extremity Narrative: Significant tenderness palpation of the inferior, anterior lateral aspect of the right knee. Patient does not tolerate range of motion of her knee. There is no obvious joint effusion. Patient is able to slightly raise her leg off the bed but it is difficult for her. She does not have any tenderness of her quadricep tendons. She has a normal place patella. No overlying warmth. Bilateral lower extremities are equal length with no rotational deformity. General Extremety ED: Negative for deformity or edema General Extremity: Negative for deformity or edema Neuro oriented x3 Neuro Narrative: Patient has subtle resting tremor. She states this has been evaluated. 5 out of 5 strength bilaterally with plantar flexion and dorsiflexion. Sensorium / Orientation: alert MDM MDM MDM Narrative Medical decision making narrative: Patient evaluated for persistent right knee pain after mechanical fall 3 days ago. She also hit her head. Head CT does not show any acute intracranial process. X-ray does not show any acute fracture. She does have some degenerative changes and osteophyte formation. Not able to fully evaluate for any ligamentous injury as patient will not tolerate. She is given IM morphine with good pain control in the ER. While patient is complaining of associated urinary incontinence it seems to be more pain and stress related. Patient does have a history of incontinence but it is exacerbated by when her pain is bad. She does not have any incontinence while in the emergency room. She not having any stool incontinence. She is not having associated back pain or saddle anesthesia. Do not think this is cauda equina syndrome. Patient will follow up with her orthopedist for her knee pain. Urinalysis is pending. Patient is instructed to continue taking ibuprofen for pain. She will follow up with her urologist and primary care doctor for her bladder issues. Radiography Diagnostic Testing: Radiology Impression Brain CT 09/21/20 20:52 IMPRESSION: Negative head/brain CT without intravenous contrast. Individualized dose optimization techniques were used for this CT. at 2157 Reported and signed by: Bruce Velasquez MD Electronically Signed: Bruce Velasquez MD at 21:56 EDT Tel , Service support , Knee X-Ray 09/21/20 21:36 IMPRESSION: Degenerative changes with joint space narrowing and osteophyte formation. There are no acute osseous abnormalities. at 2213 Reported and signed by: Bruce Velasquez MD Electronically Signed: Bruce Vealsquez MD at 22:12 EDT Tel , Service support , Discharge Plan Triage Chief Complaint: Fall ED Provider: Cee Cardenas Dx/Rx/DC Orders Clinical Impression: Acute pain of right knee, Closed head injury Instructions: ED Head Injury (Adult), ED Knee Pain of Uncertain Cause Prescriptions: No Action clonidine HCl 0.3 MG tablet 1 tab PO BID RF: 0 amlodipine 10 MG tablet 1 tab PO DAILY RF: 0 metformin 1,000 MG tablet 1,000 mg PO BID RF: 0 cyclobenzaprine 10 MG tablet 10 mg PO QHS PRN (Reason: leg cramps) RF: 0 aspirin [Aspir-Low] 81 MG tablet,delayed release (DR/EC) 1 tab PO BID RF: 0 albuterol sulfate 2.5 MG/3 ML solution for nebulization 2.5 mg inhalation Q4H PRN PRN (Reason: Sob &/Or Wheezing) RF: 0 buspirone 30 MG tablet 30 mg PO BID RF: 0 albuterol sulfate [Ventolin HFA] 1 INHALER inhaler 2 puff inhalation Q4H PRN PRN (Reason: Sob &/Or Wheezing) RF: 0 ibuprofen 800 MG tablet 800 mg PO TID PRN PRN (Reason: Pain Score 1-10/10) RF: 0 Tresiba FlexTouch U-200 200 unit/mL (3 mL) Insulin Pen 56 unit SUBCUT QHS RF: 0 Primary Care Provider: Cynthia Mosqueda Referrals: Cynthia Mosqueda MD [Primary Care Provider] - Activity Restrictions/Additional Instructions: Continue taking ibuprofen for your pain. Please follow-up with your primary care doctor and your urologist as needed for your urinary issues. Please follow-up with your orthopedist for your knee. Your head CT did not show any acute injuries. Your knee does not show any acute fractures. Disposition Disposition: Home, Self Care
[2020-09-21] MEDS: Morphine 4 MG/ML Syringe IM (21:17)
[2020-09-21 21:18] VITALS: BP 156/75; PULSE 88; RESP 15; O2SAT 97
--- NOTE | 2020-09-21 21:36 | RAD_ITS ---
EXAM: XR RIGHT KNEE, 3 VIEWS : 1955 CLINICAL INDICATION: Injury/Pain TECHNIQUE: Three views of the right knee. This report was created using [employer] report generation technology. COMPARISON: None. FINDINGS: BONES/JOINTS: There are degenerative changes with narrowing of the patellofemoral compartment. There are small osteophytes seen in the medial and lateral knee. No acute fracture. No subluxation. Normal alignment. No sclerotic or destructive changes observed. SOFT TISSUES: Unremarkable. No soft tissue swelling or gas. No radiopaque foreign body. RAD/Knee 3 Views IMPRESSION: Degenerative changes with joint space narrowing and osteophyte formation. There are no acute osseous abnormalities. at 2213 Reported and signed by: Bruce Velasquez MD Electronically Signed: Bruce Velasquez MD at 22:12 EDT Tel , Service support ,
[2020-09-21 23:07] LABS: Mucous, Urine 0 SEEN /hpf (<or=2+); Red Blood Cells-Urine 0 SEEN /hpf (0-5); White Blood Cells 0 SEEN /hpf (0-5)
[2020-09-21 23:12] LABS: Color, Urine Yellow (Yellow); Glucose, Dipstick Normal (Normal); Ketone-Dipstick Negative (Negative); Leukocyte Esterase-Dipstick Negative /ul (Negative); Nitrite-Dipstick Negative (Negative); Occult Blood-Urine Negative /ul (Negative); Protein-Dipstick 100 mg/dl (Negative); Specific Gravity, Urine 1.015 (1.002-1.030); Urine Bilirubin Dipstick Negative (Negative); Urine Clarity Clear (Clear); Urine Urobilinogen Normal (Normal)
[2020-09-21 23:52] LABS: Bacteria 1+ /hpf (None Seen); Squamous Epithelial Cells - UA 0-5 SEEN /hpf (5-10)
[2020-09-22] MEDS: oxyCODONE 5 MG Tablet PO (00:29)
[2020-09-22 00:40] VITALS: BP 143/69; PULSE 85; RESP 16; O2SAT 94
== END 2020-09-22 00:40 | disposition home or self-care (01) ==
PROVIDERS: Emergency Provider Emergency Medicine; PCP Internal Medicine
DX: S09.90XA Unspecified injury of head, initial encounter (principal); M25.561 Pain in right knee; R32 Unspecified urinary incontinence; W07.XXXA Fall from chair, initial encounter; Y93.9 Activity, unspecified; Y92.9 Unspecified place or not applicable; E66.9 Obesity, unspecified; Z68.41 Body mass index [BMI] 40.0-44.9, adult; I10 Essential (primary) hypertension; R25.1 Tremor, unspecified; E11.9 Type 2 diabetes mellitus without complications; E78.5 Hyperlipidemia, unspecified; F32.9 Major depressive disorder, single episode, unspecified; F41.9 Anxiety disorder, unspecified; M79.7 Fibromyalgia; K21.9 Gastro-esophageal reflux disease without esophagitis; J45.909 Unspecified asthma, uncomplicated; Z87.440 Personal history of urinary (tract) infections; Z79.4 Long term (current) use of insulin; Z79.82 Long term (current) use of aspirin; Z79.899 Other long term (current) drug therapy
CPT/HCPCS: 70450; 73562; 81001; 96372; 99281

== ENCOUNTER 2023-03-31 09:50 | Inpatient (IN) | payer MEDICARE, MEDICAID, SELFPAY ==
[2023-03-31] VITALS (15 sets, daily range): BP systolic 108–212; BP diastolic 57–148; PULSE 92–143; RESP 15–29; TEMP 36.1–36.8; O2SAT 91–97; BMI 40.1; BMI 39.4
--- NOTE | 2023-03-31 10:36 | RAD_ITS ---
STUDY: X-RAY - PELVIS AND RIGHT HIP REASON FOR EXAM: Female, 67 years old. Fall/injury TECHNIQUE: 3 views of the pelvis and hip. COMPARISON: None. FINDINGS: There is a non-specific bowel gas pattern. There are multiple calcified phleboliths. There are 4 well-defined densities in the right hemipelvis most likely representing recently ingested tablets. Normal bilateral iliac wings, sacroiliac joints and visualized sacrum. Normal bilateral superior and inferior pubic rami. There is narrowing with sclerosis of the pubic symphysis. Normal bilateral ischial tuberosities. Normal visualized femoral head. There is osteoarthritic spur formation of the acetabular rim. Normal hip joint. RAD/HIP, UNI W/ Pelvis 2-3 Views IMPRESSION: Degenerative changes of the right hip joint. Narrowing of the symphysis pubis. Electronically Signed: Thor Escalona MD at 12:14 EST ,
--- NOTE | 2023-03-31 10:36 | RAD_ITS ---
STUDY: X-RAY - RIGHT KNEE REASON FOR EXAM: Female, 67 years old. Knee pain following recent falls. TECHNIQUE: view(s) of the knee. COMPARISON: None. FINDINGS: Normal visualized distal femur. Normal visualized proximal tibia and fibula. Normal proximal tibiofibular articulation. There is mild degenerative arthrosis of the medial femorotibial compartment. Normal lateral femorotibial compartment. There is severe degenerative arthrosis of the patellofemoral articulation. There are atherosclerotic calcifications. RAD/Knee 4 or More Views IMPRESSION: Degenerative arthrosis. Electronically Signed: Thor Escalona MD at 12:15 EST ,
--- NOTE | 2023-03-31 10:38 | EDS_ITS ---
HPI HPI - Fall History of Present Illness Chief Complaint: Fall Informant: patient Narrative Narrative: 67-year-old female presents by EMS because of multiple falls in this past week, 2 or 3 according to the patient. She states the last fall happened several days ago, but today her right low back which has been hurting since one of the falls, was hurting so bad that she was unable to even raise up out of bed. 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 She was living alone but then upgraded to a disability apartment and has been doing very poorly for the last week there. She states that as far as injuries she hurt her right low back/hip area pointing to her buttock, and her right knee. She denies pain elsewhere and denies hitting her head at any point time or headache. No recent illness. [facility] Medical History Anxiety Asthma Depression Diabetes History of left heart catheterization Hyperlipidemia Hypertension Non-smoker Tremor Home Medications amlodipine 10 mg tablet 1 tab PO DAILY BLOOD PRESSURE 05/27/17 [History Last Taken 05/27/17 16:00] clonidine HCl 0.3 mg tablet 1 tab PO BID BLOOD PRESSURE 05/27/17 [History Last Taken Unknown] cyclobenzaprine 10 mg tablet 10 mg PO QHS PRN LEG CRAMPS 05/27/17 [History Last Taken Unknown] metformin 1,000 mg tablet 1,000 mg PO BID DIABETES 05/27/17 [History Last Taken 05/27/17 16:00] albuterol sulfate 2.5 mg/3 mL (0.083 %) solution for nebulization 2.5 mg inhalation Q4H PRN SHORTNESS OF BREATH/WHEEZING 05/28/17 [History Last Taken Unknown] albuterol sulfate 90 mcg/actuation aerosol inhaler (Ventolin HFA) 2 puff inhalation Q4H PRN SHORTNESS OF BREATH/WHEEZING 05/28/17 [History Last Taken Unknown] buspirone 30 mg tablet 30 mg PO BID ANXIETY 05/28/17 [History Last Taken Unknown] ibuprofen 800 mg tablet 800 mg PO TID PRN Pain Score 1-12/0911/18/19 [History Last Taken Unknown] insulin degludec 200 unit/mL (3 mL) subcutaneous pen (Tresiba FlexTouch U-200 insulin) 56 unit subcut [facility] DIABETES 09/21/20 [History Last Taken Unknown] aspirin 81 mg tablet,delayed release (Adult Low Dose Aspirin) 81 mg PO DAILY HEART HEALTH 03/31/23 [History Last Taken Unknown] oxybutynin chloride 15 mg tablet,extended release 24 hr 15 mg PO BID OVERACTIVE BLADDER 03/31/23 [History Last Taken Unknown] Allergy/AdvReac Type Severity Reaction Status Date / Time adhesive tape Allergy Other Verified 09/21/20 20:13 cephalexin monohydrate Allergy Other Verified 09/21/20 20:13 [From Keflex] ciprofloxacin [From Cipro] Allergy Hives Verified 09/21/20 20:13 ciprofloxacin HCl Allergy Hives Verified 09/21/20 20:13 [From Cipro] citalopram hydrobromide Allergy Unknown Verified 09/21/20 20:13 [From Celexa] clarithromycin [From Biaxin] Allergy Unknown Verified 09/21/20 20:13 codeine Allergy Unknown Verified 09/21/20 20:13 diltiazem HCl [From Cardizem] Allergy Unknown Verified 09/21/20 20:13 fluoxetine HCl [From Prozac] Allergy Unknown Verified 09/21/20 20:13 fluticasone Allergy Swelling Verified 09/21/20 20:13 [From Advair Diskus] fluticasone propionate Allergy Other Verified 09/21/20 20:13 [From Advair Diskus] hydrochlorothiazide Allergy Unknown Verified 09/21/20 20:13 [From Hyzaar] ipratropium bromide Allergy Unknown Verified 09/21/20 20:13 [From Atrovent] labetalol Allergy Rash Verified 09/21/20 20:13 lamotrigine [From Lamictal] Allergy Unknown Verified 09/21/20 20:13 latex Allergy Unknown Verified 09/21/20 20:13 liraglutide [From Victoza] Allergy Unknown Verified 09/21/20 20:13 losartan potassium Allergy Unknown Verified 09/21/20 20:13 [From Hyzaar] meloxicam [From Mobic] Allergy Other Verified 09/21/20 20:13 nitrofurantoin Allergy Hives Verified 11/18/19 13:15 [From Macrobid] nitrofurantoin Allergy Hives Verified 11/18/19 13:15 macrocrystalline [From Macrobid] Penicillins Allergy Rash Verified 09/21/20 20:13 quetiapine fumarate Allergy Unknown Verified 09/21/20 20:13 [From Seroquel] salmeterol Allergy Swelling Verified 09/21/20 20:13 [From Advair Diskus] salmeterol xinafoate Allergy Other Verified 09/21/20 20:13 [From Advair Diskus] sertraline HCl [From Zoloft] Allergy Unknown Verified 09/21/20 20:13 simvastatin [From Zocor] Allergy Unknown Verified 09/21/20 20:13 topiramate [From Topamax] Allergy Unknown Verified 09/21/20 20:13 verapamil HCl Allergy Unknown Verified 09/21/20 20:13 [From Covera-HS] zonisamide [From Zonegran] Allergy Shortness Verified 09/21/20 20:13 of breath acetaminophen [From Lortab] AdvReac Nausea Verified 09/21/20 20:13 hydrocodone bitartrate AdvReac Nausea Verified 09/21/20 20:13 [From Lortab] ramipril [From Altace] AdvReac Laryngospas Verified 09/21/20 20:13 ms sulfamethoxazole AdvReac Unknown Verified 09/21/20 20:13 [From Septra] trimethoprim [From Septra] AdvReac Unknown Verified 09/21/20 20:13 Surgical History History of bladder repair surgery History of carpal tunnel release History of cholecystectomy History of hysterectomy Social History Smoking Status: Never smoker ROS ROS ED Constitutional Constitutional ED: Denies chills or fever(s) Eyes Eyes: Denies change in vision or diplopia ENT ENT ED: Denies rhinorrhea or sore throat Cardiovascular Cardiovascular: Denies chest pain or palpitations Respiratory/Chest Respiratory/Chest: Denies cough or dyspnea Gastrointestinal Gastrointestinal: Denies abdominal pain, diarrhea, nausea or vomiting Genitourinary Genitourinary ED: Denies dysuria or hematuria Musculoskeletal Musculoskeletal: Reports back pain and extremity pain; Denies neck pain Integumentary Denies abscess or rash Neurologic Neurologic: Reports abnormal gait and tremor(s); Denies confusion, headache(s), paresthesias or radicular pain Psychiatric Psychiatric: Denies suicidal ideation or suicidal thoughts EXAM Physical Exam Const Vital Signs: 03/31/23 09:58 Temperature 98.3 F Temperature Source Oral Pulse Rate 92 Respiratory Rate 19 H Blood Pressure 180/142 H Blood Pressure Mean 154 Pulse Ox 97 Oxygen Delivery Method Room Air Positive well nourished, well developed and obese Constitutional Narrative: Incontinent of urine in the bed General Appearance ED: well developed and NAD Nutritional Appearance: obese HEENT Reports moist mucous membranes normocephalic and atraumatic Eyes PERRL and EOMs intact bilaterally Neck full ROM and supple Resp normal respiratory effort and clear to auscultation bilaterally Cardio regular rate, regular rhythm and no murmurs GI non-tender and non-distended Auscultation: normoactive bowel sounds Palpation: soft Back/Spine no CVA tenderness Back/Spine Narrative: Also tender in the right buttock/sacrum. No crepitance. No ischial tuberosity tenderness. General Back: other limited ROM Cervical Spine: Negative for cervical spine tenderness Thoracic Spine / Upper Back: Negative for thoracic spinal tenderness Lumbar Spine / Lower Back: paraspinal muscle tenderness right and straight leg raise negative bilaterally; Negative for lumbar spinal tenderness Extremity normal to inspection Extremity Narrative: Diffuse right knee tenderness no signs of trauma except for some healing/scabbed abrasions that are distal to the knee. No effusion. All ligaments are stable with short endpoints. No other specific joint tenderness or limited range of motion. Specifically, when the right thigh is flexed, she has no groin pain with internal and external rotation at the right hip. General Extremety ED: Yes tenderness; Negative for edema or pulses abnormal General Extremity: Negative for edema or pulses abnormal Neuro oriented x3, CN's II-XII intact bilaterally and no sensory deficits noted Neuro Narrative: Diffusely tremorous while resting. Able to move extremities and follow commands. Normal speech. Mikey Coma Scale: document GCS findings Spontaneous Obeys Commands Oriented 15 Sensorium / Orientation: awake and alert Motor Exam: strength 5/5 throughout Psych Mood & Affect: anxious Skin no rashes or lesions noted and no wounds MDM MDM MDM Narrative Medical decision making narrative: X-rays of the right hip and pelvis as well as the right knee were obtained where the patient is having pain, 3 views of the hip and pelvis negative for any acute fracture my interpretation, 4 views of the right knee on my interpretation negative for acute fracture as well. Workup medically is otherwise unremarkable except for some mild dehydration, urine was obtained that she was incontinent here and does not show evidence of infection. After pain medication, patient states her pain is completely gone, she is able to stand up, using a rollator/walker, she struggled getting to standing but once she was up she did okay according to nursing. Patient understands that if she cannot function may need OT and PT evaluations for possible nursing of short-term rehab. She is adamant that she does not want to come in for placement. She understands that going home with this tremor that apparently has been very difficult to treat, she is at risk for future falls, and she could injure herself worse. She states she understands this and her plan is to have her granddaughter stay with her for short period of time to try to help her at this time. She appears to have the capacity to make this decision, she understands and I feel she can make a choice that is congruent with her values and has the ability to make this decision herself. Lab Data Attestation: I reviewed the patient's lab results. Labs: Laboratory Results - last 24 hr 03/31/23 03/31/23 10:20 11:37 WBC 6.3 RBC 4.97 Hgb 12.5 Hct 40.5 MCV 81.5 MCH 25.2 L MCHC 30.9 L RDW Std Deviation 43.9 RDW Coeff of [place] 14.6 Plt Count 153 Immature Gran % (Auto) 0.500 Neut % (Auto) 71.9 H Lymph % (Auto) 14.0 L [place] % (Auto) 11.0 H Eos % (Auto) 2.1 Baso % (Auto) 0.5 Absolute Neuts (auto) 4.5 Absolute Lymphs (auto) 0.88 Nucleated RBC % 0 Differential Comment SCANNED Plt Morphology Comment LARGE Sodium 142 Potassium 4.0 Chloride 113 H Carbon Dioxide 23.0 Anion Gap 6 BUN 28 H Creatinine 1.04 H Estim Creat Clear Calc 61.74 Est GFR (MDRD) Af Amer 68 Est GFR (MDRD) Non-Af 56 L BUN/Creatinine Ratio 26.9 H Glucose 121 H Calcium 9.9 Urine Color Yellow Urine Clarity Sl. Cloudy Urine pH 5.0 Ur Specific [place] 1.025 Urine Protein 100 H Urine Glucose (UA) Normal Urine Ketones 15 H Urine Occult Blood Negative Urine Nitrite Negative Urine Bilirubin Negative Urine Urobilinogen Normal Ur Leukocyte Esterase Negative Urine RBC 0 SEEN Urine WBC 0 SEEN Ur Squamous Epith Cells 0 SEEN Urine Bacteria 0 SEEN Urine Mucus 0 SEEN Radiography Diagnostic Testing: Clinical Impression(s) from Imaging Studies Hip/Pelvis X-Ray 03/31/23 10:36 IMPRESSION: Degenerative changes of the right hip joint. Narrowing of the symphysis pubis. Electronically Signed: Thor Escalona MD at 12:14 EST , Rhythm Strip Rhythm Strip: Sinus Rhythm Rate: 90 Ectopy: None Discharge Plan Triage Chief Complaint: Fall ED Provider: Luis Mcdonald Dx/Rx/DC Orders Clinical Impression: Contusion of lower back, Tremor, Multiple falls Instructions: Falls Prevent Use Cane Walker Prescriptions: No Action clonidine HCl 0.3 MG tablet 1 tab PO BID amlodipine 10 MG tablet 1 tab PO DAILY metformin 1,000 MG tablet 1,000 mg PO BID cyclobenzaprine 10 MG tablet 10 mg PO QHS PRN (Reason: LEG CRAMPS) albuterol sulfate 2.5 MG/3 ML solution for nebulization 2.5 mg inhalation Q4H PRN (Reason: SHORTNESS OF BREATH/WHEEZING ) buspirone 30 MG tablet 30 mg PO BID albuterol sulfate [Ventolin HFA] 1 INHALER inhaler 2 puff inhalation Q4H PRN (Reason: SHORTNESS OF BREATH/WHEEZING ) ibuprofen 800 MG tablet 800 mg PO TID PRN (Reason: Pain Score 1-10/10) insulin degludec [Tresiba FlexTouch U-200] 200 unit/mL (3 mL) Insulin Pen 56 unit SUBCUT QHS oxybutynin chloride 15 mg tablet extended release 24hr 15 mg PO BID aspirin [Adult Low Dose Aspirin] 81 mg tablet,delayed release (DR/EC) 81 mg PO DAILY Primary Care Provider: Cynthia Mosqueda Referrals: Cynthia Mosqueda MD [Primary Care Provider] - As soon as possible (And/or your neurologist) Disposition Disposition: Home, Self Care
[2023-03-31] MEDS: Ondansetron 4 MG/2 ML Vial IV ×3 (10:45→18:46)
[2023-03-31] MEDS: Morphine 4 MG/ML Syringe IV (10:45)
[2023-03-31 10:53] LABS: Absolute Lymphocyte Count 0.88 X10^3/uL (0.83-4.51); Absolute Neutrophil Count 4.5 X10^3/uL (2.0-7.7); Basophil# 0.03 X10^3/uL; Basophil% 0.5 % (0-1); Eosinophil# 0.13 X10^3/uL; Eosinophils% 2.1 % (0-5); Hematocrit 40.5 % (37-47); Hemoglobin 12.5 g/dL (12.0-15.0); Lymphocyte # 0.88 X10^3/ul (0.83-4.51); Mean Corp Hgb Conc 30.9 g/dL (32-36); Mean Corpuscular Hgb 25.2 pg (27.0-32.0); Mean Corpuscular Volume 81.5 fL (81-99); Monocyte# 0.69 X10^3/uL; NRBC Flagged by Analyzer 0 % (0-5); Neutrophil # 4.54 X10^3/uL (2.7-7.7); Neutrophil % 71.9 % (47-70); POSITIVE COUNT YES; Platelet Count 153 K/mm3 (150-450); RBC Distribution Width CV 14.6 % (11.6-14.6); RBC Distribution Width SD 43.9 fl (35.1-43.9); Red Blood Count 4.97 M/mm3 (4.2-5.4); White Blood Count 6.3 K/mm3 (4.4-11.0)
[2023-03-31 11:00] LABS: Anion Gap 6 (5-15); BUN 28 mg/dL (7-18); BUN/Creat Ratio 26.9 RATIO (10-20); Calcium,Total 9.9 mg/dL (8.5-10.1); Chloride 113 mmol/L (98-107); Creatinine, Serum 1.04 mg/dL (0.55-1.02); EST Glomerular Filtration Rate 56 mL/min (>60); Est Glom Filt Rate - Afr Amer 68 mL/min (>60); Estimated Creatinine Clearance 61.74 ml/min; Glucose 121 mg/dL (74-106); Sodium Level 142 mmol/L (136-145)
[2023-03-31 11:05] LABS: Differential Indicated SCAN CRITERIA MET
[2023-03-31 11:06] LABS: Differential Comment SCANNED; Platelet Morphology LARGE
[2023-03-31 11:40] LABS: Bacteria 0 SEEN /hpf (None Seen); Mucous, Urine 0 SEEN /hpf (<or=2+); Red Blood Cells-Urine 0 SEEN /hpf (0-5); Squamous Epithelial Cells - UA 0 SEEN /hpf (5-10); White Blood Cells 0 SEEN /hpf (0-5)
[2023-03-31 11:48] LABS: Color, Urine Yellow (Yellow); Glucose, Dipstick Normal (Normal); Ketone-Dipstick 15 mg/dl (Negative); Leukocyte Esterase-Dipstick Negative /ul (Negative); Nitrite-Dipstick Negative (Negative); Occult Blood-Urine Negative /ul (Negative); Protein-Dipstick 100 mg/dl (Negative); Specific Gravity, Urine 1.025 (1.002-1.030); Urine Bilirubin Dipstick Negative (Negative); Urine Clarity Sl. Cloudy (Clear); Urine Urobilinogen Normal (Normal)
--- NOTE | 2023-03-31 13:29 | ED.RN ---
THIS RN WENT IN ROOM TO DISCHARGE PATIENT. PT WITH PULSE OX AND BP CUFF. HR NOTICED TO BE 140'S. THIS RN AUSCULTATED PT. 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 DR. MAGAÑA INFORMED.
--- NOTE | 2023-03-31 13:38 | RAD_ITS ---
STUDY: X-RAY CHEST REASON FOR EXAM: Female, 67 years old. Weakness TECHNIQUE: AP and lateral views of the chest. COMPARISON: None. FINDINGS: EKG electrodes are seen. The lungs are clear and expanded. There is no demonstrated pleural abnormality. Normal size heart. Normal mediastinum and michelle. Normal visualized pulmonary arteries. Normal visualized aortic arch and descending thoracic aorta. Normal visualized thoracic spine. Normal visualized ribs, clavicles, and shoulders. There is no demonstrated abnormality of the visualized soft tissue structures of the upper abdomen. RAD/Chest PA and Lateral IMPRESSION: Normal x-ray examination of the chest. Electronically Signed: Thor Escalona MD at 14:34 EST ,
[2023-03-31] MEDS: Adenosine 6 MG/2 ML Syringe IV (14:46)
[2023-03-31] MEDS: 0.9% Normal Saline (1000mL) 1,000 ML 999 ML IV (15:16)
[2023-03-31] MEDS: Ibuprofen 400 MG Tablet 800 MG PO (18:51)
--- NOTE | 2023-03-31 20:11 | HP.PCM.HOS_ITS ---
HPI - General General Date of Admission: 03/31/23 Date of Service: 03/31/23 Chief Complaint: falls HPI Narrative LIVIER VILLAFANA, is a 67 F who presented to the emergency department at [facility] on 03/31/2022 due to multiple falls over the last 2 to 3 weeks. Patient has a history of Parkinson's disease but is not intolerant of multiple medications to treat her tremors. The last fall she had was several days ago but her right low back has been hurting since that point in time and today it was hurting so bad that she was unable to even rise up out of bed. She lives alone and was recently upgraded to a disability apartment and had been doing poorly over the last week even in that setting. She was initially evaluated in the emergency department with imaging and lab work. Imaging was all negative for any acute process. Her CBC was unremarkable. Her chemistry panel showed mild elevation in BUN and creatinine at 28 and 1.04 and her urine did not show any signs of infection however she did appear to be dehydrated with a specific gravity of 1.025. She was given some IV fluids and the plan was to send her home as the patient did not want to be admitted for placement however she then developed acute tachycardia. On questioning, the patient think she may have had this about 20 years ago when she lived in [place] but has not had any issues with it since. EKG appears to be consistent with atrial flutter having 2-1 block. Patient was given adenosine and flutter waves were noted. Patient has multiple allergies to many medications so the case was discussed with cardiology and they recommended initiating an amiodarone drip and starting her on a heparin drip. She is allergic to beta-blockers and calcium channel blockers. Patient does have multiple allergies which will make this complicated. [facility] Medical History Anxiety Asthma Depression Diabetes History of left heart catheterization Hyperlipidemia Hypertension Non-smoker Tremor Home Medications amlodipine 10 mg tablet 1 tab PO DAILY BLOOD PRESSURE 05/27/17 [History Last Taken 05/27/17 16:00] clonidine HCl 0.3 mg tablet 1 tab PO BID BLOOD PRESSURE 05/27/17 [History Last Taken Unknown] cyclobenzaprine 10 mg tablet 10 mg PO QHS PRN LEG CRAMPS 03/28/18 [History Last Taken Unknown] insulin degludec 200 unit/mL (3 mL) subcutaneous pen (Tresiba FlexTouch U-200 insulin) 56 unit subcut QHS DIABETES 09/21/20 [History Last Taken Unknown] aspirin 81 mg tablet,delayed release (Adult Low Dose Aspirin) 81 mg PO DAILY HEART HEALTH 03/31/23 [History Last Taken Unknown] diclofenac sodium 75 mg tablet,delayed release 75 mg PO .COMPLEX arthritic pain 03/31/23 [History Last Taken 03/29/23] diphenhydramine HCl 25 mg capsule (Allergy (diphenhydramine)) 50 mg PO QHS insomnia and allergies 03/31/23 [History Last Taken Unknown] ibuprofen 800 mg tablet (IBU) 800 mg PO DAILY PRN headache 03/31/23 [History Last Taken Unknown] oxybutynin chloride 15 mg tablet,extended release 24 hr 15 mg PO BID OVERACTIVE BLADDER 03/31/23 [History Last Taken Unknown] Allergy/AdvReac Type Severity Reaction Status Date / Time adhesive tape Allergy Other Verified 09/21/20 20:13 cephalexin monohydrate Allergy Other Verified 09/21/20 20:13 [From Keflex] ciprofloxacin [From Cipro] Allergy Hives Verified 09/21/20 20:13 ciprofloxacin HCl Allergy Hives Verified 09/21/20 20:13 [From Cipro] citalopram hydrobromide Allergy Unknown Verified 09/21/20 20:13 [From Celexa] clarithromycin [From Biaxin] Allergy Unknown Verified 09/21/20 20:13 codeine Allergy Unknown Verified 09/21/20 20:13 diltiazem HCl [From Cardizem] Allergy Unknown Verified 09/21/20 20:13 fluoxetine HCl [From Prozac] Allergy Unknown Verified 09/21/20 20:13 fluticasone Allergy Swelling Verified 09/21/20 20:13 [From Advair Diskus] fluticasone propionate Allergy Other Verified 09/21/20 20:13 [From Advair Diskus] hydrochlorothiazide Allergy Unknown Verified 09/21/20 20:13 [From Hyzaar] ipratropium bromide Allergy Unknown Verified 09/21/20 20:13 [From Atrovent] labetalol Allergy Rash Verified 09/21/20 20:13 lamotrigine [From Lamictal] Allergy Unknown Verified 09/21/20 20:13 latex Allergy Unknown Verified 09/21/20 20:13 liraglutide [From Victoza] Allergy Unknown Verified 09/21/20 20:13 losartan potassium Allergy Unknown Verified 09/21/20 20:13 [From Hyzaar] meloxicam [From Mobic] Allergy Other Verified 09/21/20 20:13 nitrofurantoin Allergy Hives Verified 11/18/19 13:15 [From Macrobid] nitrofurantoin Allergy Hives Verified 11/18/19 13:15 macrocrystalline [From Macrobid] Penicillins Allergy Rash Verified 09/21/20 20:13 quetiapine fumarate Allergy Unknown Verified 09/21/20 20:13 [From Seroquel] salmeterol Allergy Swelling Verified 09/21/20 20:13 [From Advair Diskus] salmeterol xinafoate Allergy Other Verified 09/21/20 20:13 [From Advair Diskus] sertraline HCl [From Zoloft] Allergy Unknown Verified 09/21/20 20:13 simvastatin [From Zocor] Allergy Unknown Verified 09/21/20 20:13 topiramate [From Topamax] Allergy Unknown Verified 09/21/20 20:13 verapamil HCl Allergy Unknown Verified 09/21/20 20:13 [From Covera-HS] zonisamide [From Zonegran] Allergy Shortness Verified 09/21/20 20:13 of breath acetaminophen [From Lortab] AdvReac Nausea Verified 09/21/20 20:13 hydrocodone bitartrate AdvReac Nausea Verified 09/21/20 20:13 [From Lortab] ramipril [From Altace] AdvReac Laryngospas Verified 09/21/20 20:13 ms sulfamethoxazole AdvReac Unknown Verified 09/21/20 20:13 [From Septra] trimethoprim [From Septra] AdvReac Unknown Verified 09/21/20 20:13 other (Unknown) Surgical History History of bladder repair surgery History of carpal tunnel release History of cholecystectomy History of hysterectomy Social History (Updated 03/31/23 @ 21:[address] Noa Lao DO) household members: none housing: apartment current occupational status: disabled current occupation: Patient is disabled due to Parkinson's disease Smoking Status: Never smoker alcohol intake: never substance use type: does not use ROS Constitutional Constitutional: Reports weakness; Denies anorexia, change in weight, chills, fatigue, fever(s), malaise, night sweats or other Eyes Eyes: Denies blurry vision, change in eye color, change in vision, discharge from eye(s), double vision, erythema, eye pain, loss of vision or other ENT HEENT: Denies abnormal hearing, dysphagia, ear pain, epistaxis, headache(s), hearing loss, nasal congestion, nasal discharge, post nasal drip, sinus pressure, sore throat or other Cardiovascular Cardiovascular: Reports palpitations; Denies chest pain, claudication, dyspnea on exertion, edema, lightheadedness, orthopnea, paroxysmal nocturnal dyspnea, rapid heart rate, syncope or other Respiratory/Chest Respiratory/Chest: Denies cough, dyspnea, excessive phlegm production, hemoptysis, productive cough, shortness of breath at rest, shortness of breath with exertion, wheezing or other Gastrointestinal Gastrointestinal: Denies abdominal pain, coffee ground emesis, constipation, diarrhea, dyspepsia, hematemesis, hematochezia, loose stools, melena, nausea, vomiting or other Genitourinary Genitourinary: Denies burning urination, difficulty urinating, dysuria, hematuria, nocturia, urinary frequency, urinary hesitancy, urinary incontinence, urinary urgency or other Musculoskeletal Musculoskeletal: Reports back pain, joint pain and joint stiffness; Denies arthralgias, joint swelling, myalgias, neck pain or other Neurologic Neurologic: Reports abnormal gait and tremor(s); Denies abnormal speech, confusion, disequilibrium, dizziness, focal weakness, headache(s), numbness, paresthesias, seizure-like activity, seizures, syncope, tingling or other Psychiatric Psychiatric: Denies anxiety, depression, homicidal ideation, suicidal ideation or other Endocrine Endocrinology: Denies change in body appearance, cold intolerance, excessive sweating, heat intolerance, polydipsia, polyuria or other Hematologic/Lymphatic Hematologic/Lymphatic: Denies anemia, easy bleeding, easy bruising, lymphadenopathy or other Allergic/Immunologic Allergic/Immunologic: Denies rhinitis, hives, eczemia, asthma or other Vital Signs Vital Signs Vital Signs: 03/31/23 09:58 03/31/23 13:25 03/31/23 15:00 Temperature 98.3 F Temperature Source Oral Pulse Rate 92 141 H 143 H Respiratory Rate 19 H 18 15 Blood Pressure 180/142 H 147/82 H 164/148 H Blood Pressure Mean 154 103 153 Pulse Ox 97 94 91 Oxygen Delivery Method Room Air Room Air 03/31/23 17:00 03/31/23 20:01 Temperature Temperature Source Pulse Rate 137 H 139 H Respiratory Rate 20 H 18 Blood Pressure 108/70 158/111 H Blood Pressure Mean 82 126 Pulse Ox 94 94 Oxygen Delivery Method Room Air Weight Weight: 102.7 kg Body Mass Index (BMI) 40.1 Physical Exam Const alert, oriented x3, no apparent distress and well nourished; Negative for average body habitus or healthy appearing Constitutional Narrative: Upper middle-aged, white female, morbidly obese, appears much older than stated age, significant tremor noted, sons at bedside, appears nontoxic but does appear chronically ill General Appearance: cooperative HEENT normocephalic, head/scalp atraumatic, hearing grossly normal bilaterally and moist oral mucous membranes HEENT Narrative: Mallampati 3, no thrush Eyes PERRL and EOMs intact bilaterally Eyes Narrative: No scleral icterus Neck no lymphadenopathy and supple Neck Narrative: Neck is short and thick, trachea midline Resp normal respiratory effort, no retractions, no use of accessory muscles and clear to auscultation bilaterally Auscultation: Negative for rales, rhonchi or wheezes Cardio S1 normal heart sound, S2 normal heart sound, no murmurs, no rub, no gallops and no clicks Cardio Narrative: Irregularly irregular rhythm, tachycardic GI normal to inspection, nondistended, normoactive bowel sounds, soft to palpation and non-tender GI Narrative: Protuberant abdomen Extremity no clubbing, cyanosis or edema Skin no rashes or lesions noted, no wounds, skin turgor normal, no jaundice, no petechiae and no mottling Neuro oriented x3, moves all extremities and no focal motor deficits Neuro Narrative: Severe resting tremor noted on exam, masked facies, bradykinesia, speech is somewhat slow and deliberate however intelligible and appropriate Sensorium / Orientation: awake and alert Psych Psych Narrative: Affect is flattened mood seems depressed Results Lab / Micro Data 03/31/23 10:20 03/31/23 10:20 Labs: Laboratory Results - last 24 hr 03/31/23 10:20: WBC 6.3, RBC 4.97, Hgb 12.5, Hct 40.5, MCV 81.5, MCH 25.2 L, MCHC 30.9 L, RDW Std Deviation 43.9, RDW Coeff of Rico 14.6, Plt Count 153, Immature Gran % (Auto) 0.500, Neut % (Auto) 71.9 H, Lymph % (Auto) 14.0 L, Dolores % (Auto) 11.0 H, Eos % (Auto) 2.1, Baso % (Auto) 0.5, Absolute Neuts (auto) 4.5, Absolute Lymphs (auto) 0.88, Nucleated RBC % 0, Differential Comment SCANNED, Plt Morphology Comment LARGE, Sodium 142, Potassium 4.0, Chloride 113 H, Carbon Dioxide 23.0, Anion Gap 6, BUN 28 H, Creatinine 1.04 H, Estim Creat Clear Calc 61.74, Est GFR (MDRD) Af Amer 68, Est GFR (MDRD) Non-Af 56 L, BUN/Creatinine Ratio 26.9 H, Glucose 121 H, Calcium 9.9 03/31/23 11:37: Urine Color Yellow, Urine Clarity Sl. Cloudy, Urine pH 5.0, Ur Specific [place] 1.025, Urine Protein 100 H, Urine Glucose (UA) Normal, Urine Ke tones 15 H, Urine Occult Blood Negative, Urine Nitrite Negative, Urine Bilirubin Negative, Urine Urobilinogen Normal, Ur Leukocyte Esterase Negative, Urine RBC 0 SEEN, Urine WBC 0 SEEN, Ur Squamous Epith Cells 0 SEEN, Urine Bacteria 0 SEEN, Urine Mucus 0 SEEN Rhythm Strip Rhythm Strip: Sinus Rhythm Rate: 90 Ectopy: None Imaging Radiology Impression Hip/Pelvis X-Ray 03/31/23 10:36 IMPRESSION: Degenerative changes of the right hip joint. Narrowing of the symphysis pubis. Electronically Signed: Thor Escalona MD at 12:14 EST , Knee X-Ray 03/31/23 10:36 IMPRESSION: Degenerative arthrosis. Electronically Signed: Thor Escalona MD at 12:15 EST , Chest X-Ray 03/31/23 13:38 IMPRESSION: Normal x-ray examination of the chest. Electronically Signed: Thor Escalona MD at 14:34 EST , Assessment & Plan Assessment/Plan (1) Multiple falls: (2) Contusion of lower back: (3) Atrial tachycardia: (4) Elevated serum creatinine: PLAN: Plan Atrial tachycardia -Appears to be a flutter with 2-1 block -Adenosine given the emergency department and notable flutter waves were identified -Patient with multiple medication allergies including calcium channel blockers and beta-blockers -Case discussed with cardiology and they recommended amiodarone bolus and drip -Start heparin drip -Check echocardiogram -Check TSH -Check a.m. BMP with magnesium and phosphorus -Cardiology consultation Elevated serum creatinine secondary to dehydration -Specific gravity of urine was 1.025 -Baseline serum creatinine appears to run between 0.55 and 0.85 -Serum creatinine presentation was 1.04 -1 L IV fluids given the emergency department -Repeat lab in a.m. Debility/falls -Patient with marked debility and multiple falls -Likely needs placement however patient seems to be resistant -Consult PT/OT -Case management/social work consultation for discharge planning assistance Back contusion -Continue nightly Flexeril -As needed Tylenol -Patient was given Motrin emergency department but I had to do this on a regular basis -Did tolerate morphine so we will give oxycodone 5 mg every 6 hours as needed to see if she tolerates this -As needed antiemetics available if this does make the patient nauseous Parkinson's disease -Patient's been on multiple medications which she has not tolerated -Tremors severe and likely contributing to her falls -PT/OT consultation -Recommend ongoing outpatient neurological follow-up Hypertension -Continue home amlodipine -Continue home clonidine DM-2 -Patient states she has not been taking her Tresiba at home as her blood sugars have been running quite low -Fasting sugar off Tresiba was 112 on admission -Will hold basal insulin for now -SSI -Carb controlled diet -Accu-Cheks as ordered -Check hemoglobin A1c Overactive bladder -Patient is on oxybutynin which may be contributing to her falls -Discussed this with patient as I am inclined to discontinue it and she stated it was not even working anyway -Will hold for now and recommend likely complete discontinuation at discharge Hyperlipidemia -Patient is intolerant of statins -Continue dietary modifications JOSIE -Patient was not tolerant of a mask however she states she is figure out a way to sleep without having significant oxygenation issues on her side with something under her chin to hold her jaw closed -As needed oxygen nocturnally for any hypoxia Morbid obesity -BMI is 40.1 -Recommend weight loss -Complicates treatment, prognosis, outcomes History of anxiety and depression -Patient seems depressed on admission -Patient is not on any chronic medication for this and would hold off on this for now with her multiple medication allergies DVT prophylaxis -Patient currently on heparin drip CODE STATUS -DNR CCA with no intubation as confirmed with family at bedside at the time of admission Charges/Coding Visit Charges Inpatient E&M: 40077 Init Hosp L2
--- OUTSIDE RECORDS SUMMARY | 2023-03-31 20:17 | XMS RPT_ITS | CCD ---
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 Name Role Phone Sagrario Mosqueda MD Primary Care Provider Susie Em RPh Unavailable RICARDO BENEDICT Referring Unavailable TALAMPAS, SAGRARIO D Primary Care Unavailable RICARDO BENEDICT Attending Unavailable TALAMPAS, SAGRARIO D Primary Care Unavailable TALAMPAS, SAGRARIO D Primary Care Unavailable TALAMPAS, SAGRARIO D Attending Unavailable FAITH RAYGOZA Referring Unavailable TALAMPAS, SAGRARIO D Primary Care Unavailable REBECA OCHOA Attending Unavailable TALAMPAS, SAGRARIO D Primary Care Unavailable TALAMPAS, SAGRARIO D Referring Unavailable TALAMPAS, SAGRARIO D Primary Care Unavailable MARIANELA SHEARER Referring Unavailable TALAMPAS, SAGRARIO D Primary Care Unavailable MARIANELA SHEARER Attending Unavailable TALAMPAS, SAGRARIO D Primary Care Unavailable FAITH RAYGOZA Attending Unavailable TALAMPAS, SAGRARIO D Primary Care Unavailable FAITH RAYGOZA Attending Unavailable TALAMPAS, SAGRARIO D Primary Care Unavailable MARIANELA SHEARER Attending Unavailable TALAMPAS, SAGRARIO D Primary Care Unavailable Allergies Allergy Classification Reported Allergen(s) Allergy Type Date of Onset Reaction(s) Facility (20 sources) Acetaminophen / HYDROcodone; Translations: [HYDROCODONE-ACETAMINO PHEN] Drug Allergy 11-06-19 06 Mental Status Change [facility] Work Phone: (20 sources) Adhesive Tape; Translations: [ADHESIVE TAPE (ROSINS)] Allergy to substance 11-25-19 06 Rash [facility] Work Phone: (20 sources) Cephalexin; Translations: [CEPHALEXIN] Drug Allergy 11-06-19 06 Itching [facility] Work Phone: (20 sources) Ciprofloxacin; Translations: [CIPROFLOXACIN] Drug Allergy 03-22-19 16 Rash, Other: See Comments [facility] (20 sources) Citalopram; Translations: [CITALOPRAM HYDROBROMIDE] Drug Allergy 07-07-19 07 [facility] Work Phone: (20 sources) Clarithromycin; Translations: [CLARITHROMYCIN] Drug Allergy 11-06-19 Mental Status Change [facility] Work Phone: (20 sources) Codeine; Translations: [CODEINE] Drug Allergy 11-06-19 Rash [facility] Work Phone: [phone] (20 sources) dilTIAZem; Translations: [DILTIAZEM HCL] Drug Allergy 11-06-19 06 Anaphylaxis [facility] Work Phone: (20 sources) FLUoxetine; Translations: [FLUOXETINE HCL] Drug Allergy 05-14-19 07 Shortness of Breath [facility] (20 sources) fluticasone / salmeterol; Translations: [FLUTICASONE PROPION-SALMETEROL] Drug Allergy 11-06-19 06 Swelling [facility] (20 sources) hydroCHLOROthiazide / Losartan; Translations: [LOSARTAN-HYDROCHLOROT HIAZIDE] Drug Allergy 11-06-19 06 [facility] Work Phone: (20 sources) Ipratropium; Translations: [IPRATROPIUM BROMIDE] Drug Allergy 11-06-19 [facility] Work Phone: (20 sources) Labetalol; Translations: [LABETALOL] Drug Allergy 11-06-19 [facility] Work Phone: (20 sources) lamoTRIgine; Translations: [LAMOTRIGINE] Drug Allergy 11-06-19 [facility] Work Phone: (20 sources) Latex; Translations: [LATEX] Drug Intolerance 07-15-19 09 [facility] Work Phone: [phone] (20 sources) liraglutide; Translations: [LIRAGLUTIDE] Drug Allergy 10-19-19 11 [facility] Work Phone: [phone] (20 sources) meloxicam; Translations: [MELOXICAM] Drug Allergy 01-03-20 11 Other: See Comments [facility] Work Phone: [phone] (20 sources) QUEtiapine; Translations: [QUETIAPINE FUMARATE] Drug Allergy 11-06-19 06 Shortness of Breath [facility] Work Phone: [phone] (20 sources) Ramipril; Translations: [RAMIPRIL] Drug Allergy 11-06-19 06 Anaphylaxis [facility] Work Phone: [phone] (20 sources) Sertraline; Translations: [SERTRALINE HCL] Drug Allergy 09-26-19 07 Intolerance [facility] Work Phone: [phone] (20 sources) Simvastatin; Translations: [SIMVASTATIN] Drug Allergy 07-15-19 09 Swelling [facility] (20 sources) Sulfamethoxazole / Trimethoprim; Translations: [SULFAMETHOXAZOLE-TRIM ETHOPRIM] Drug Allergy 11-06-19 06 GI Upset [facility] Work Phone: [phone] (20 sources) topiramate; Translations: [TOPIRAMATE] Drug Allergy 07-12-19 14 Other: See Comments [facility] Work Phone: [phone] (20 sources) Verapamil; Translations: [VERAPAMIL HCL] Drug Allergy 11-06-19 06 [facility] Work Phone: [phone] (20 sources) zonisamide; Translations: [ZONISAMIDE] Drug Allergy 11-06-19 06 Shortness of Breath [facility] Work Phone: [phone] (20 sources) Pineapple; Translations: [PINEAPPLE] Drug Allergy 08-30-19 21 Swelling [facility] Work Phone: [phone] (12 sources) Methenamine; Translations: [METHENAMINE] Drug Allergy 08-23-19 23 Rash, Swelling, Itching, Anaphylaxis [facility] Work Phone: Medications Current Medications Medication Drug Class(es) Dates Sig (Normalized) Sig (Original) iv contrast (will be provided with radiology test) (1 source) Start: 08-15-2022 End: 08-16-2022 iv contrast (will be provided with radiology test) MRI foot/toes RT Inject, intravenously, once for 1 dose. No IV access, insert saline lock prior to the beginning of sedation, infusion, injection of imaging exam. Discontinue saline lock post exam. If Pt. has a central line or IVAD, may access for administration according to line specific nursing protocol. Once exam is complete flush line and de-access according to line specific nursing protocol in the MR contrast administration guidelines link. 1 Each 0 08/15/2022 08/16/2022 Active Completed/Discontinued Medications Medication Drug Class(es) Dates Sig (Normalized) Sig (Original) [id number] 200 actuat albuterol 0.09 mg/actuat metered dose inhaler (1 source) beta2-Adrenergic Agonist Start: 01-11-2014 End: 06-10-2021 take 2 puff(s) by inhalation every four hours as needed albuterol HFA (VENTOLIN HFA) 90 mcg/actuation inhaler Indications: Unspecified asthma(493.90) Inhale 2 Puffs as instructed every 4 hours as needed. 1 Inhaler 3 01/11/2014 06/10/2021 Discontinued Problems Active Problems Problem Classification Problem Date Documented Da te Episodic/Chronic Anxiety disorders (20 sources) Panic disorder with agoraphobia; Translations: [Agoraphobia with panic disorder] Onset: 6 11-05-2005 Chronic Asthma (20 sources) Asthma; Translations: [Unspecified asthma, uncomplicated] Onset: 6 Chronic Cataract (20 sources) Bilateral cortical age-related cataract eyes; Translations: [Cortical age-related cataract, bilateral] Onset: 9 11-04-2018 Chronic Coagulation and hemorrhagic disorders (12 sources) Platelet count below reference range; Translations: [Thrombocytopenia, unspecified] Onset: 3 Chronic Diabetes mellitus with complications (20 sources) Type 2 diabetes mellitus; Translations: [Type 2 diabetes mellitus with diabetic neuropathy, unspecified] Onset: 5 Chronic Diabetes mellitus without complication (20 sources) Insulin treated type 2 diabetes mellitus; Translations: [Type 2 diabetes mellitus without complications] Onset: 8 05-23-2019 Chronic Disorders of lipid metabolism (20 sources) Mixed hyperlipidemia; Translations: [Mixed hyperlipidemia] Onset: 6 Chronic Diverticulosis and diverticulitis (20 sources) Diverticulosis of colon; Translations: [Diverticulosis of large intestine without perforation or abscess without bleeding] Onset: 2 01-07-2012 Chronic Esophageal disorders (20 sources) Gastroesophageal reflux disease; Translations: [Gastro-esophageal reflux disease without esophagitis] Onset: 7 05-13-2006 Chronic Essential hypertension (20 sources) Essential hypertension; Translations: [Essential (primary) hypertension] Onset: 6 Chronic Headache; including migraine (20 sources) Migraine without aura; Translations: [Migraine without aura, not intractable, without status migrainosus] Onset: 6 11-05-2005 Chronic Inflammation; infection of eye (except that caused by tuberculosis or sexually transmitteddisease) (20 sources) Bilateral punctate keratitis of eyes; Translations: [Punctate keratitis, bilateral] Onset: 8 11-03-2017 Chronic Malaise and fatigue (2 sources) Asthenia; Translations: [Weakness] Episodic Menopausal disorders (20 sources) Atrophic vaginitis; Translations: [Postmenopausal atrophic vaginitis] Onset: 8 02-09-2008 Chronic Nutritional deficiencies (17 sources) Vitamin D deficiency; Translations: [Vitamin D deficiency, unspecified] Onset: 3 Chronic Osteoarthritis (20 sources) Degenerative joint disease involving multiple joints; Translations: [Polyosteoarthritis, unspecified] Onset: 6 04-21-2018 Chronic Other connective tissue disease (1 source) Weakness of face muscles; Translations: [Facial weakness] Episodic Other connective tissue disease (1 source) Mass of soft tissue; Translations: [Other specified soft tissue disorders] Episodic Other connective tissue disease (1 source) Fine motor impairment ; Translations: [Other symptoms and signs involving the nervous system] Episodic Other endocrine disorders (1 source) Hypoglycemia; Translations: [Hypoglycemia, unspecified] 12-26-2022 Chronic Other eye disorders (20 sources) Bilateral vitreous floaters; Translations: [Other vitreous opacities, bilateral] Onset: 8 11-03-2017 Chronic Other gastrointestinal disorders (20 sources) Irritable bowel syndrome; Translations: [Irritable bowel syndrome without diarrhea] Onset: 6 11-05-2005 Chronic Other hereditary and degenerative nervous system conditions (4 sources) Essential tremor; Translations: [Essential tremor] Chronic Other hereditary and degenerative nervous system conditions (20 sources) System disorder of the nervous system; Translations: [Other specified extrapyramidal and movement disorders] Onset: 6 02-09-2006 Chronic Other hereditary and degenerative nervous system conditions (1 source) Essential tremor; Translations: [Tremor, essential] Onset: 3 Chronic Other nervous system disorders (20 sources) Carpal tunnel syndrome; Translations: [Carpal tunnel syndrome, unspecified upper limb] Onset: 6 11-05-2005 Chronic Other nervous system disorders (20 sources) Carpal tunnel syndrome of right wrist; Translations: [Carpal tunnel syndrome, right upper limb] Onset: 5 01-22-2015 Chronic Other nervous system disorders (20 sources) Carpal tunnel syndrome of left wrist; Translations: [Carpal tunnel syndrome, left upper limb] Onset: 5 01-22-2015 Chronic Other nervous system disorders (5 sources) Tremor; Translations: [Tremor, unspecified] Episodic Other nutritional; endocrine; and metabolic disorders (20 sources) Body mass index 40+ - severely obese; Translations: [Morbid (severe) obesity due to excess calories] Onset: 8 05-23-2019 Chronic Other nutritional; endocrine; and metabolic disorders (2 sources) Severe obesity; Translations: [Morbid (severe) obesity due to excess calories] Chronic Other screening for suspected conditions (not mental disorders or infectious disease) (2 sources) Patient encounter status; Translations: [Encounter for screening mammogram for malignant neoplasm of breast] Episodic Other skin disorders (1 source) Keratosis; Translations: [Epidermal thickening, unspecified] Episodic Other skin disorders (1 source) Callosity; Translations: [Corns and callosities] Episodic Residual codes; unclassified (20 sources) Sleep apnea; Translations: [Sleep apnea, unspecified] Onset: 6 11-05-2005 Chronic Residual codes; unclassified (20 sources) Obstructive sleep apnea syndrome; Translations: [Obstructive sleep apnea (adult) (pediatric)] Onset: 5 01-22-2015 Chronic Residual codes; unclassified (1 source) Needs assistance with community resources; Translations: [Other specified health status] Episodic Residual codes; unclassified (20 sources) Other specified health status; Translations: [Other drug allergy] 11-28-2014 Episodic Transient cerebral ischemia (3 sources) Cerebral ischemia; Translations: [Transient cerebral ischemic attack, unspecified] Onset: Chronic Past or Other Problems Problem Classification Problem Date Documented Date Episodic/Chronic Esophageal disorders (20 sources) Esophagitis; Translations: [Esophagitis, unspecified] Onset: 01-07-2012 01-07-2012 Episodic Genitourinary symptoms and ill-defined conditions (20 sources) Urgent desire to urinate; Translations: [Urgency of urination] Onset: 02-09-2008 02-09-2008 Episodic Hemorrhoids (20 sources) Internal hemorrhoids; Translations: [Other hemorrhoids] Onset: 11-05-2005 04-02-2015 Episodic Other aftercare (1 source) technician terminal and repeater (current) use of insulin; Translations: [Type 2 diabetes mellitus with diabetic neuropathy, with long-term current use of insulin (HCC)] Onset: 05-23-2019 Episodic Other and unspecified benign neoplasm (20 sources) Benign neoplasm of colon; Translations: [Benign neoplasm of colon, unspecified] Onset: 01-07-2012 01-07-2012 Episodic Other connective tissue disease (20 sources) Fibromyalgia; Translations: [Fibromyalgia] Onset: 11-05-2005 01-02-2016 Episodic Other connective tissue disease (20 sources) Impingement syndrome of left shoulder region; Translations: [Impingement syndrome of left shoulder] Onset: 05-13-2016 05-13-2016 Episodic Other connective tissue disease (1 source) Other specified soft tissue disorders; Translations: [Soft tissue mass] Onset: 09-18-2022 Episodic Other female genital disorders (20 sources) Vulval and/or perineal noninflammatory disorders; Translations: [Noninflammatory disorder of vulva and perineum, unspecified] Onset: 02-09-2008 02-09-2008 Episodic Other nervous system disorders (1 source) Tremor, unspecified; Translations: [Tremor] Onset: 04-10-2022 Episodic Other skin disorders (1 source) Corns and callosities; Translations: [Callus] Onset: 09-18-2022 Episodic Residual codes; unclassified (20 sources) Edema; Translations: [Edema, unspecified] Onset: 11-05-2005 11-05-2005 Episodic Results Test Name Value Interpretation Reference Range Facil ity Vital Signs Date Time Vital Sign Value Performing Clinician Dave sherry 12-26-2022 09:37-0400 Body weight 102.97 kg Ricardo Benedict BUTTON TUFTER.MACHINE BINDER STRIPPER Work Phone: [facility] 12-26-2022 09:37-0400 Diastolic blood pressure 65 mm[Hg] Ricardo Benedict BUTTON TUFTER.MACHINE BINDER STRIPPER Work Phone: [facility] 12-26-2022 09:37-0400 Heart rate 89 /min Ricardo Benedict BUTTON TUFTER.MACHINE BINDER STRIPPER Work Phone: [facility] 12-26-2022 09:37-0400 Respiratory rate 16 /min Ricardo Benedict BUTTON TUFTER.MACHINE BINDER STRIPPER Work Phone: [facility] 12-26-2022 09:37-0400 Systolic blood pressure 146 mm[Hg] Ricardo Benedict BUTTON TUFTER.MACHINE BINDER STRIPPER Work Phone: [facility] 10-08-2022 15:31-0400 Diastolic blood pressure 70 mm[Hg] Sagrario Mosqueda MD Work Phone: [facility] 10-08-2022 15:31-0400 Systolic blood pressure 114 mm[Hg] Sagrario Mosqueda MD Work Phone: [facility] 10-08-2022 14:42-0400 Body temperature 98.6 [degF] Sagrario Mosqueda MD Work Phone: [facility] 10-08-2022 14:42-0400 Body weight 105.69 kg Sagrario Mosqueda MD Work Phone: [facility] 10-08-2022 14:42-0400 Heart rate 101 /min Sagrario Mosqueda MD Work Phone: [facility] 10-08-2022 14:42-0400 Respiratory rate 18 /min Sagrario Mosqueda MD Work Phone: [facility] 10-08-2022 14:42-0400 SaO2% (BldA) [Mass fraction] 96 % Sagrario Mosqueda MD Work Phone: [facility] 08-22-2022 08:22-0400 Diastolic blood pressure 90 mm[Hg] Rebeca Gabriela BUTTON TUFTER.ASSEMBLING INSPECTOR Work Phone: [facility] 08-22-2022 08:22-0400 Systolic blood pressure 130 mm[Hg] Rebeca Gabriela BUTTON TUFTER.ASSEMBLING INSPECTOR Work Phone: [facility] 08-22-2022 08:20-0400 Body weight 104.78 kg Rebeca Gabriela BUTTON TUFTER.ASSEMBLING INSPECTOR Work Phone: [facility] 08-22-2022 08:20-0400 Heart rate 99 /min Rebeca Gabriela BUTTON TUFTER.ASSEMBLING INSPECTOR Work Phone: [facility] 08-22-2022 08:20-0400 SaO2% (BldA) [Mass fraction] 98 % Rebeca Gabriela BUTTON TUFTER.ASSEMBLING INSPECTOR Work Phone: [facility] 08-14-2022 14:31-0400 Diastolic blood pressure 84 mm[Hg] Faith Dahlhausen BUTTON TUFTER.ASSEMBLING INSPECTOR Work Phone: [facility] 08-14-2022 14:31-0400 Heart rate 99 /min Faith Dahlhausen BUTTON TUFTER.ASSEMBLING INSPECTOR Work Phone: [facility] 08-14-2022 14:31-0400 Systolic blood pressure 173 mm[Hg] Faith Dahlhausen BUTTON TUFTER.ASSEMBLING INSPECTOR Work Phone: [facility] 08-14-2022 13:46-0400 Body temperature 97.81 [degF] Faith Dahlhausen BUTTON TUFTER.ASSEMBLING INSPECTOR Work Phone: [facility] 08-14-2022 13:46-0400 Body weight 102.33 kg Faith Dahlhausen BUTTON TUFTER.ASSEMBLING INSPECTOR Work Phone: [facility] 08-14-2022 13:46-0400 Respiratory rate 18 /min Faith Dahlhausen BUTTON TUFTER.ASSEMBLING INSPECTOR Work Phone: [facility] 08-14-2022 13:46-0400 SaO2% (BldA) [Mass fraction] 99 % Faith Dahlhausen BUTTON TUFTER.ASSEMBLING INSPECTOR Work Phone: [facility] 04-10-2022 13:31-0500 Body temperature 97.9 [degF] Faith Dahlhausen BUTTON TUFTER.ASSEMBLING INSPECTOR Work Phone: [facility] 04-10-2022 13:31-0500 Body weight 108.14 kg Faith Dahlhausen BUTTON TUFTER.ASSEMBLING INSPECTOR Work Phone: [facility] 04-10-2022 13:31-0500 Diastolic blood pressure 74 mm[Hg] Faith Dahlhausen BUTTON TUFTER.ASSEMBLING INSPECTOR Work Phone: [facility] 04-10-2022 13:31-0500 Heart rate 72 /min Faith Dahlhausen BUTTON TUFTER.ASSEMBLING INSPECTOR Work Phone: [facility] 04-10-2022 13:31-0500 Respiratory rate 18 /min Faith Dahlhausen BUTTON TUFTER.ASSEMBLING INSPECTOR Work Phone: [facility] 04-10-2022 13:31-0500 SaO2% (BldA) [Mass fraction] 95 % Faith Dahlhausen BUTTON TUFTER.ASSEMBLING INSPECTOR Work Phone: [facility] 04-10-2022 13:31-0500 Systolic blood pressure 125 mm[Hg] Faith Dahlhausen BUTTON TUFTER.ASSEMBLING INSPECTOR Work Phone: [facility] 02-10-2022 17:11-0500 Body weight 110.68 kg Sagrario Mosqueda MD Work Phone: [facility] 02-10-2022 17:11-0500 Diastolic blood pressure 72 mm[Hg] Sagrario Mosqueda MD Work Phone: [facility] 02-10-2022 17:11-0500 Heart rate 94 /min Sagrario Mosqueda MD Work Phone: [facility] 02-10-2022 17:11-0500 SaO2% (BldA) [Mass fraction] 96 % Sagrario Mosqueda MD Work Phone: [facility] 02-10-2022 17:11-0500 Systolic blood pressure 122 mm[Hg] Sagrario Mosqueda MD Work Phone: [facility] 11-28-2021 13:37-0400 Body temperature 97.59 [degF] Faith Dahlhausen BUTTON TUFTER.ASSEMBLING INSPECTOR Work Phone: [facility] 11-28-2021 13:37-0400 Body weight 110.22 kg Faith Dahlhausen BUTTON TUFTER.ASSEMBLING INSPECTOR Work Phone: [facility] 11-28-2021 13:37-0400 Diastolic blood pressure 82 mm[Hg] Faith Dahlhausen BUTTON TUFTER.ASSEMBLING INSPECTOR Work Phone: [facility] 11-28-2021 13:37-0400 Heart rate 100 /min Faith Dahlhausen BUTTON TUFTER.ASSEMBLING INSPECTOR Work Phone: [facility] 11-28-2021 13:37-0400 Respiratory rate 18 /min Faith Dahlhausen BUTTON TUFTER.ASSEMBLING INSPECTOR Work Phone: [facility] 11-28-2021 13:37-0400 SaO2% (BldA) [Mass fraction] 97 % Faith Dahlhausen BUTTON TUFTER.ASSEMBLING INSPECTOR Work Phone: [facility] 11-28-2021 13:37-0400 Systolic blood pressure 126 mm[Hg] Faith Dahlhausen BUTTON TUFTER.ASSEMBLING INSPECTOR Work Phone: [facility] 08-09-2021 14:12-0400 Body temperature 98.1 [degF] Munir Poole Jr., MD Work Phone: [facility] 08-09-2021 14:12-0400 Body weight 110.86 kg Munir Poole Jr., MD Work Phone: [facility] 08-09-2021 14:12-0400 Diastolic blood pressure 74 mm[Hg] Munir Poole Jr., MD Work Phone: [facility] 08-09-2021 14:12-0400 Heart rate 96 /min Munir Poole Jr., MD Work Phone: [facility] 08-09-2021 14:12-0400 Respiratory rate 18 /min Munir Poole Jr., MD Work Phone: [facility] 08-09-2021 14:12-0400 SaO2% (BldA) [Mass fraction] 97 % Munir Poole Jr., MD Work Phone: [facility] 08-09-2021 14:12-0400 Systolic blood pressure 128 mm[Hg] Munir Poole Jr., MD Work Phone: [facility] 06-10-2021 12:53-0400 Body weight 114.76 kg Ricardo Benedict BUTTON TUFTER.MACHINE BINDER STRIPPER Work Phone: [facility] 06-10-2021 12:53-0400 Diastolic blood pressure 72 mm[Hg] Ricardo Benedict BUTTON TUFTER.MACHINE BINDER STRIPPER Work Phone: [facility] 06-10-2021 12:53-0400 Heart rate 84 /min Ricardo Estradas BUTTON TUFTER.MACHINE BINDER STRIPPER Work Phone: [facility] 06-10-2021 12:53-0400 Respiratory rate 16 /min Ricardo Benedict BUTTON TUFTER.MACHINE BINDER STRIPPER Work Phone: [facility] 06-10-2021 12:53-0400 Systolic blood pressure 140 mm[Hg] Ricardo Benedict BUTTON TUFTER.MACHINE BINDER STRIPPER Work Phone: [facility] Encounters Encounter Date Encounter Type Care Provider Facility Start: 03-10-2023 End: 03-10-2023 ambulatory MARIANELA SHEARER Facility:[facility] Start: 12-31-2022 ambulatory Sagrario landry MD Work Phone: Internal [facility] Start: 12-29-2022 Telephone encounter Ricardo xiong BUTTON TUFTER.MACHINE BINDER STRIPPER Work Phone: [facility] [place] Procedures Date Procedure Procedure Detail Performing Clinician Start: 11-28-2020 Adult depression scr eening assessment Ricardolillian Benedict BUTTON TUFTER.MACHINE BINDER STRIPPER Work Phone: Start: 04-21-2018 Colonoscopy Ricardo Florezo tyrese BUTTON TUFTER.MACHINE BINDER STRIPPER Work Phone: Start: 04-21-2018 Mammography Ricardo Broo tyrese BUTTON TUFTER.MACHINE BINDER STRIPPER Work Phone: Plan of Treatment Date Care Activity Detail Author Start: 10-09-2023 ANNUAL PCP TEAM SYSTEMS ANALYST CLEMENTE DISEASE VISIT ANNUAL PCP TEAM CHRONIC DISEASE VISIT [facility] Start: 10-09-2023 BP CONTROLLED (<130/80) BP CONTROLLE D (<130/80) [facility] Start: 10-09-2023 Pneumococcal Vaccine : 65+ (2 - PCV) Pneumococcal Vaccine: 65+ (2 - PCV) [facility] Immunizations Immunization Date Immunization Notes Care Provider Eamon kam 11-30-2020 influenza, injectabl e, quadrivalent, contains preservative Ricardo Benedict BUTTON TUFTER.MACHINE BINDER STRIPPER Work Phone: [facility] Work Phone: 11-30-2020 influenza virus vacc ine, unspecified formulation Sagrario Mosqueda MD Work Phone: [facility] 11-30-2019 influenza, injectabl e, quadrivalent, contains preservative Ricardo Benedict BUTTON TUFTER.MACHINE BINDER STRIPPER Work Phone: [facility] 10-25-2018 influenza, injectabl e, quadrivalent, contains preservative Rebeca Gabriela BUTTON TUFTER.ASSEMBLING INSPECTOR Work Phone: [facility] Work Phone: 10-25-2018 influenza, seasonal, injectable Ricardo Benedict BUTTON TUFTER.MACHINE BINDER STRIPPER Work Phone: [facility] Work Phone: 06-08-2018 hepatitis A vaccine, adult dosage Rebeca Gabriela BUTTON TUFTER.ASSEMBLING INSPECTOR Work Phone: [facility] Work Phone: 06-08-2018 hepatitis A vaccine, unspecified formulation Ricardo Benedict BUTTON TUFTER.MACHINE BINDER STRIPPER Work Phone: [facility] Work Phone: 12-07-2017 hepatitis A vaccine, adult dosage Ricardo Benedict BUTTON TUFTER.MACHINE BINDER STRIPPER Work Phone: [facility] 12-07-2017 Influenza, injectabl e, Madin Cesilia Canine Kidney, preservative free, quadrivalent Ricardo Benedict BUTTON TUFTER.MACHINE BINDER STRIPPER Work Phone: [facility] 01-02-2016 influenza, injectabl e, quadrivalent, contains preservative Ricardo Benedict BUTTON TUFTER.MACHINE BINDER STRIPPER Work Phone: [facility] 11-28-2014 influenza, injectabl e, quadrivalent, contains preservative Ricardo Benedict BUTTON TUFTER.MACHINE BINDER STRIPPER Work Phone: [facility] 01-11-2014 influenza, seasonal, injectable Ricardo Benedict BUTTON TUFTER.MACHINE BINDER STRIPPER Work Phone: [facility] 01-11-2014 pneumococcal polysaccharide vaccine, 23 valent Ricardo Benedict BUTTON TUFTER.MACHINE BINDER STRIPPER Work Phone: [facility] 02-11-2013 influenza virus vacc ine, unspecified formulation Ricardo Benedict BUTTON TUFTER.MACHINE BINDER STRIPPER Work Phone: [facility] 11-24-2011 tetanus toxoid, redu kaci diphtheria toxoid, and acellular pertussis vaccine, adsorbed Ricardo Benedict BUTTON TUFTER.MACHINE BINDER STRIPPER Work Phone: [facility] Work Phone: 12-28-2006 influenza virus vacc ine, unspecified formulation Ricardo Benedict BUTTON TUFTER.MACHINE BINDER STRIPPER Work Phone: [facility] Work Phone: 12-30-2005 influenza virus vacc ine, unspecified formulation Ricardo Benedict BUTTON TUFTER.MACHINE BINDER STRIPPER Work Phone: [facility] Work Phone: 12-01-2003 pneumococcal polysaccharide vaccine, 23 valent Ricardo Benedict BUTTON TUFTER.MACHINE BINDER STRIPPER Work Phone: [facility] Work Phone: Payers Date Payer Category [place]ayer [place] [id number] 2015-Present [phone] [address] [place] [address] Medicaid [id number] 2015 Medicaid [id number] 2015 Medicare MEDICARE MEDICAR E A AND B [id number] 2015-Present [phone] [place] [address] Medicare [id number] 2015 Medicare MEDICARE MEDICAR E A AND B [id number] 2015-Present [phone] [place] [address] Medicare [id number] 2015 Medicare [id number] Social History Date Type Detail Facility Start: 04-20-2012 End: 04-10-2022 Tobacco smoking status NHIS Never smoked tobacco [facility] Work Phone: Start: 06-10-2021 End: 12-26-2022 Alcohol intake Current non-drinker of alcohol (finding) [facility] Start: 05-19-2019 History SDOH Alcohol Frequency 1 [facility] Start: 05-19-2019 History SDOH Social Connections Phone 5 [facility] Start: 05-19-2019 History SDOH Social Connections Ep[employer]opalian 3 [facility] Start: 05-19-2019 End: 10-17-2019 History SDOH Social Connections Living 4 [facility] Start: 05-19-2019 History SDOH Physica l Activity DPW 0 [facility] Start: 10-17-2019 History SDOH Food Worry 2 [facility] Start: 10-17-2019 History SDOH Food Scarcity 98 [facility] Start: 05-19-2019 Education 12 [facility] Start: 1955 Sex Assigned At Not on file C [facility] Start: 05-31-2021 End: 11-28-2021 Exposure to SARS-CoV-2 (event) Not sure [facility] Work Phone: Start: 04-20-2012 End: 04-10-2022 Tobacco use and exposure Smokeless tobacco non-user [facility] Start: 05-19-2019 End: 08-14-2022 [facility] Start: 05-19-2019 End: 08-14-2022 Social connection and isolation panel [facility] Do you belong to any clubs or organizations such as taoism groups, unions, fraternal or athletic groups, or school groups? Yes [facility] Are you now , , , , never or living with a partner? [facility] How often to you hav e a drink containing alcohol? Never [facility] Average Number of Drinks Not on file [facility] Work Phone: How hard is it for y ou to pay for the very basics like food, housing, medical care, and heating Not very hard [facility] Work Phone: Do you feel stress - tense, restless, nervous, or anxious, or unable to sleep at night because your mind is troubled all the time - these days [OSQ] Very much [facility] (I/We) worried whebreanne er (my/our) food would run out before (I/we) got money to buy more. Sometimes true [facility] Work Phone: The food that (I/we) bought just didn't last, and (I/we) didn't have money to get more. DK or Refused [facility] Work Phone: Medical Equipment Procedure Code Equipment Code Equipment Origin al Text Equipment Identifier Dates Start: 10-07-2018 Clinical Notes 05-13-2016 to 03-12-2023 Telephone Encounter - Noa Garcia Ma - 12/29/2022 9:53 AM EDTTelephone Encounter - Ricardo Benedict APRN.CNS - 12/29/2022 9:31 AM Ricardo Kat APRN.MACHINE BINDER STRIPPER - 12/26/2022 10:36 AM EDT Note Date & Type Note Facility 03-12-2023 Note HNO ID: [id number] Author: MARIANELA SHEARER, ? Service: ? Author Type: Physician Type: Progress Notes Filed: 03/11/2023 22:19 Note Text: FOLLOW UP PODIATRIC OFFICE VISIT Chief Complaint: This 67 year old who presents for follow up:painful corn to right 2nd toe Patient presents to clinic for follow-up painful corn to right 2nd toe. States that there is pain with walking. Also reports that her right 5th toenail is black. She states that her niece cut her toenail and may have led to a bleed. PAIN EVALUATION No data found in the last 1 encounters. Hemoglobin A1C Date Value Ref Range Status 12/26/2022 6.2 (H) 4.3 - 5.6 % Final Comment: [place] [employer] guidelines indicate that patients with HgbA1c in the range 5.7-6.4% are at increased risk for development of diabetes, and intervention by lifestyle modification may be beneficial. HgbA1c greater or equal to 6.5% is considered diagnostic of diabetes. 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 ASTHMA UNSPECIFIED 11/05/2005 Benign neoplasm of colon BIPOLAR - SINGLE MANIC EPISODE NOS 11/05/2005 Bipolar affective disorder (HCC) 09/12/2009 depression at this point; no recent manic episodes; noted flare up ofr auditory hallucinations Bipolar I disorder, single manic episode (HCC) 11/05/2005 Carpal tunnel syndrome 11/05/2005 Bilateral DEPRESSIVE DISORDER NEC 11/05/2005 Diabetes mellitus type 2, insulin dependent (HCC) DIABETES MELLITUS TYPE II-UNCOMPL 08/30/2000 Diverticulosis of colon (without mention of hemorrhage) Edema 11/05/2005 Esophageal reflux 05/13/2006 Esophagitis, unspecified EXTRAPYRAMIDAL DIS NEC 11/05/2005 GENERAL OSTEOARTHROSIS 11/05/2005 HYPERLIPIDEMIA NEC/NOS 11/05/2005 HYPERTENSION NOS 02/09/2006 IRRITABLE COLON 11/05/2005 Morbid Obesity MYALGIA AND MYOSITIS NOS 11/05/2005 NEUROPATHY IN DIABETES 11/05/2005 SLEEP APNEA NOS 11/05/2005 Had CPAP mask, not using Statin intolerance Current Outpatient Medications Medication Sig cloNIDine HCl (CATAPRES) 0.3 mg tablet Take 1 tablet by mouth two times a day. amLODIPine (NORVASC) 10 mg tablet Take 1 tablet by mouth once daily. oxybutynin ER (DITROPAN XL) 15 mg 24 hr Extended Rel Tab Take 1 tablet by mouth two times a day. insulin degludec (TRESIBA FLEXTOUCH U-200) 200 unit/mL (3 mL) injection Inject 10 Units subcutaneously daily at bedtime. flash glucose sensor (FREESTYLE MAHESH 2 SENSOR) kit Apply new sensor every fourteen (14) days to upper arm. magnesium citrate and oxide (MAGNESIUM CITRATE,MAG OXIDE) 250 mg cap Take 2 capsules by mouth twice daily. WALKER ROLLATOR SEAT WITH 6 WHEELS - RED Ultra-light with seat if possible, if not please give lightest possible rollator with a seat. Please send to [employer]. omega-3 fatty acids 1,000 mg cap Take 4 capsules by mouth once daily. Patient reports she is taking 4,000 mg daily cholecalciferol (VITAMIN D3) 50 mcg (2,000 unit) tablet Take 1 tablet by mouth once daily. mecobalamin, vitamin B12, (B12 ACTIVE) 1,000 mcg chew Take 1 tablet by mouth once daily. phytonadione, vit K1, (VITAMIN K) 100 mcg tablet Take 100 mcg by mouth once daily. blood sugar diagnostic (BLOOD GLUCOSE TEST) test strip Test blood sugar(s) 3 times daily and as needed for symptoms of high and low sugars. Dx: Other DM Code E11.40 Insulin: Yes Lancets lancets Check blood sugar 3 times daily and as needed for symptoms of high or low sugars DX: E11.40 Insulin:Yes. Please give lancet pen if does not come with the meter Blood-Glucose Meter monitoring kit Glucose Meter of Choice - Kit - As directed to test blood sugar up to 3 times daily. Dx: Other DM Code E11.40. Insulin [place], Disposable, (BD INSULIN PEN NEEDLE UF) 29 gauge x 1/2 ndle USE TO INJECT TWICE DAILY Aspirin 81 mg tab Take 1 tablet by mouth once daily. Take with food. (Patient taking differently: Take 81 mg by mouth two times a day. Take with food.) carbidopa-levodopa (SINEMET) 25-100 mg per tablet Take 1.5 tablets by mouth three times daily. (Patient not taking: Reported on 03/10/2023) No current facility-administered medications for this visit. ALLERGIES Allergen Reactions Pineapple Swelling was not ripe Adhesive Tape (Wendy* Rash Advair Diskus [Flut* Swelling Altace [Ramipril] Anaphylaxis Atrovent [Ipratropi* Rash Biaxin [Clarithromy* Mental Status Change Can take zithromax Carbidopa-Levodopa Rash, Swelling Cardizem [Diltiazem* Anaphylaxis Celexa [Citalopram * Muscle pain and fatigue Ciprofloxacin Rash, Other: See Comments Tendonitis in hands Codeine Rash Covera-Hs [Verapami* Confusion, constipation Hyzaar [Losartan-Hy* Rash Cramps, chills Keflex [Cephalexin] Itching rash Labetalol Rash Lamictal [Lamotrigi* Rash Latex Rash Occurs if latex on skin for long periods Lortab [Hydrocodone* Mental Status Change Methenamine Ra (more content not included)... [facility] 03-10-2023 Note HNO ID: [id number] Author: ACOSTA AMAYA, RN Service: ? Author Type: Registered Nurse Type: Progress Notes Filed: 03/11/2023 22:19 Note Text: Patient presents with: Right Foot - Established Patient, Follow Up, Bump Patient presents for growth to bottom of Right 2nd toe. Right 5th toe nail is black. JOANNA 08/15/22 [facility] 01-05-2023 Note Patient Outreach (NE TNAV) TIFFANIE DEVLIN ([id number]) 1955 F Date Time Provider Department 01/05/23 SELENE MILLER During your visit today, we recorded the following information about you: Selene Miller MA 01/05/2023 1:32 PM Signed POPULATION HEALTH NAVIGATION OUTREACH Action/FYI Spoke to Tiffanie. Patient declined mammograms. She will call back to schedule medicare wellness exam. ANNUAL MEDICARE WELLNESS Mammogram Screening due on 04/21/2019 Advance Directive Discussion Never done Influenza Vaccine(1) due on 10/31/2022 Patient Identified by Name and : YES, via phone Outreach Outcome/Action Spoke to patient / parent / legal guardian: Patient declined Patient will return the call or ask for return call Did you use a PCP flex slot to schedule this appointment? N/A Reason for Outreach Care Gap or Scheduling/Wellness visits Payer: Payor: MEDICARE / Plan: MEDICARE A AND B / Product Type: Medicare / Care Gap Reviewed:: Annual Wellness visit Flu Vaccine Reminder: Reminder note to check Health Maintenance for items below Health Maintenance items due: Shingrix Vaccine(1 of 2) Never done Hepatitis B Vaccine(1 of 3 - Risk 3-dose series) Never done RSV Vaccine(1 - 1-dose 60+ series) Never done Mammogram Screening due on 04/21/2019 Urine Albumin:Creatinine Ratio due on 01/15/2022 Dilated Retinal Exam due on 03/13/2022 Bone Density Screening Never done Advance Directive Discussion Never done Influenza Vaccine(1) due on 10/31/2022 Navigation Signature: Selene Miller MA January 05, 2023 9:00 AM Allergies As of Date: 01/05/2023 Noted Allergy Reaction PINEAPPLE 08/29/2020 7 - Swelling Comments: was not ripe ADHESIVE TAPE (ROSINS) 11/24/2005 2 - Rash ADVAIR DISKUS (FLUTICASONE PROPIO*11/05/2005 7 - Swelling ALTACE (RAMIPRIL) 11/05/2005 10 - Anaphylaxis ATROVENT (IPRATROPIUM BROMIDE) 11/05/2005 2 - Rash BIAXIN (CLARITHROMYCIN) 11/05/2005 1 - Mental Status Change Comments: Can take zithromax CARDIZEM (DILTIAZEM HCL) 11/05/2005 10 - Anaphylaxis CELEXA (CITALOPRAM HYDROBROMIDE) 07/06/2006 Comments: Muscle pain and fatigue CIPROFLOXACIN 03/22/2015 2 - Rash 14 - Other: See Comments Comments: Tendonitis in hands CODEINE 11/05/2005 2 - Rash COVERA-HS (VERAPAMIL HCL) 11/05/2005 Comments: Confusion, constipation HYZAAR (LOSARTAN-HYDROCHLOROTHIAZ*11/05 2 - Rash Comments: Cramps, chills KEFLEX (CEPHALEXIN) 11/05/2005 9 - Itching Comments: rash LABETALOL 11/05/2005 2 - Rash LAMICTAL (LAMOTRIGINE) 11/05/2005 2 - Rash LATEX 07/14/2008 2 - Rash Comments: Occurs if latex on skin for long periods LORTAB (HYDROCODONE-ACETAMINOPHEN)11/05 1 - Mental Status Change METHENAMINE 08/22/2022 2 - Rash 7 - Swelling 9 - Itching 10 - Anaphylaxis Comments: throat swelling MOBIC (MELOXICAM) 01/02/2011 14 - Other: See Comments Comments: [place] like something squeezing heart PROZAC (FLUOXETINE HCL) 05/13/2006 12 - Shortness of Breath Comments: sob,chest pains SEPTRA (SULFAMETHOXAZOLE-TRIMETHO*11/05 8 - GI Upset SEROQUEL (QUETIAPINE FUMARATE) 11/05/2005 12 - Shortness of Breath TOPAMAX (TOPIRAMATE) 07/11/2013 14 - Other: See Comments Comments: gait instability and felt stupid VICTOZA (LIRAGLUTIDE) 10/18/2010 7 - Swelling Comments: throat swelling ZOCOR (SIMVASTATIN) 07/14/2008 7 - Swelling ZOLOFT (SERTRALINE HCL) 09/25/2006 5 - Intolerance Comments: Severe chest pain Already tried pravastatin and lovastatin and atorvastatin and had adverse effects with all ZONEGRAN (ZONISAMIDE) 11/05/2005 12 - Shortness of Breath Date Reviewed: 12/26/2022 Reviewed by: Ricardo Benedict APRN.MACHINE BINDER STRIPPER - Fully Assessed Reason for Visit: Population Health Navigation Outreach [3910] Cmt: ACO CARE GAPS Prescriptions as of 01/05/2023 - insulin degludec (TRESIBA FLEXTOUCH U-200) 200 unit/mL (3 mL) injection Inject 10 Units subcutaneously daily at bedtime. - oxybutynin ER (DITROPAN XL) 15 mg 24 hr Extended Rel Tab Take 1 tablet by mouth twice daily. - flash glucose sensor (FREESTYLE MAHESH 2 SENSOR) kit Apply new sensor every fourteen (14) days to upper arm. - magnesium citrate and oxide (MAGNESIUM CITRATE,MAG OXIDE) 250 mg cap Take 2 capsules by mouth twice daily. - WALKER ROLLATOR SEAT WITH 6 WHEELS - RED Ultra-light with seat if possible, if not please give lightest possible rollator with a seat. Please send to [employer]. - omega-3 fatty acids 1,000 mg cap Take 4 capsules by mouth once daily. Patient reports she is taking 4,000 mg daily - carbidopa-levodopa (SINEMET) 25-100 mg per tablet Take 1.5 tablets by mouth three times daily. - amLODIPine (NORVASC) 10 mg tablet Take 1 tablet by mouth once daily. - cholecalciferol (VITAMIN D3) 50 mcg (2,000 unit) tablet Take 1 tablet by mouth once daily. - cloNIDine HCl (CATAPRES) 0.3 mg tablet Take 1 tablet by (more content not included)... [facility] 01-05-2023 Note HNO ID: [id number] Author: Selene Miller MA Service: ? Author Type: Security Operations Engineer Type: Progress Notes Filed: 01/05/2023 1:32 PM Note Text: POPULATION HEALTH NAVIGATION OUTREACH Action/FYI Spoke to Tiffanie. Patient declined mammograms. She will call back to schedule medicare wellness exam. ANNUAL MEDICARE WELLNESS Mammogram Screening due on 04/21/2019 Advance Directive Discussion Never done Influenza Vaccine(1) due on 10/31/2022 Patient Identified by Name and : YES, via phone Outreach Outcome/Action Spoke to patient / parent / legal guardian: Patient declined Patient will return the call or ask for return call Did you use a PCP flex slot to schedule this appointment? N/A Reason for Outreach Care Gap or Scheduling/Wellness visits Payer: Payor: MEDICARE / Plan: MEDICARE A AND B / Product Type: Medicare / Care Gap Reviewed:: Annual Wellness visit Flu Vaccine Reminder: Reminder note to check Health Maintenance for items below Health Maintenance items due: Shingrix Vaccine(1 of 2) Never done Hepatitis B Vaccine(1 of 3 - Risk 3-dose series) Never done RSV Vaccine(1 - 1-dose 60+ series) Never done Mammogram Screening due on 04/21/2019 Urine Albumin:Creatinine Ratio due on 01/15/2022 Dilated Retinal Exam due on 03/13/2022 Bone Density Screening Never done Advance Directive Discussion Never done Influenza Vaccine(1) due on 10/31/2022 Navigation Signature: Selene Miller MA January 05, 2023 9:00 AM [facility] 12-31-2022 Note Patient Outreach (IN TMMN) BRODERICKTIFFANIE FRENCH ([id number]) 1955 F Date Time Provider Department 12/31/22 SAGRARIO MOSQUEDA During your visit today, we recorded the following information about you: Allergies As of Date: 12/31/2022 Noted Allergy Reaction PINEAPPLE 08/29/2020 7 - Swelling Comments: was not ripe ADHESIVE TAPE (ROSINS) 11/24/2005 2 - Rash ADVAIR DISKUS (FLUTICASONE PROPIO*11/05/2005 7 - Swelling ALTACE (RAMIPRIL) 11/05/2005 10 - Anaphylaxis ATROVENT (IPRATROPIUM BROMIDE) 11/05/2005 2 - Rash BIAXIN (CLARITHROMYCIN) 11/05/2005 1 - Mental Status Change Comments: Can take zithromax CARDIZEM (DILTIAZEM HCL) 11/05/2005 10 - Anaphylaxis CELEXA (CITALOPRAM HYDROBROMIDE) 07/06/2006 Comments: Muscle pain and fatigue CIPROFLOXACIN 03/22/2015 2 - Rash 14 - Other: See Comments Comments: Tendonitis in hands CODEINE 11/05/2005 2 - Rash COVERA-HS (VERAPAMIL HCL) 11/05/2005 Comments: Confusion, constipation HYZAAR (LOSARTAN-HYDROCHLOROTHIAZ*11/05 2 - Rash Comments: Cramps, chills KEFLEX (CEPHALEXIN) 11/05/2005 9 - Itching Comments: rash LABETALOL 11/05/2005 2 - Rash LAMICTAL (LAMOTRIGINE) 11/05/2005 2 - Rash LATEX 07/14/2008 2 - Rash Comments: Occurs if latex on skin for long periods LORTAB (HYDROCODONE-ACETAMINOPHEN)11/05 1 - Mental Status Change METHENAMINE 08/22/2022 2 - Rash 7 - Swelling 9 - Itching 10 - Anaphylaxis Comments: throat swelling MOBIC (MELOXICAM) 01/02/2011 14 - Other: See Comments Comments: [place] like something squeezing heart PROZAC (FLUOXETINE HCL) 05/13/2006 12 - Shortness of Breath Comments: sob,chest pains SEPTRA (SULFAMETHOXAZOLE-TRIMETHO*11/05 8 - GI Upset SEROQUEL (QUETIAPINE FUMARATE) 11/05/2005 12 - Shortness of Breath TOPAMAX (TOPIRAMATE) 07/11/2013 14 - Other: See Comments Comments: gait instability and felt stupid VICTOZA (LIRAGLUTIDE) 10/18/2010 7 - Swelling Comments: throat swelling ZOCOR (SIMVASTATIN) 07/14/2008 7 - Swelling ZOLOFT (SERTRALINE HCL) 09/25/2006 5 - Intolerance Comments: Severe chest pain Already tried pravastatin and lovastatin and atorvastatin and had adverse effects with all ZONEGRAN (ZONISAMIDE) 11/05/2005 12 - Shortness of Breath Date Reviewed: 12/26/2022 Reviewed by: Ricardo Benedict APRN.MACHINE BINDER STRIPPER - Fully Assessed Visit Diagnosis:Encounter for screening mammogram for breast cancer [Z12.31] Order(s):[facility] SCREENING [[id number]] Order #: [id number] FUTURE Prescriptions as of 01/05/2023 - insulin degludec (TRESIBA FLEXTOUCH U-200) 200 unit/mL (3 mL) injection Inject 10 Units subcutaneously daily at bedtime. - oxybutynin ER (DITROPAN XL) 15 mg 24 hr Extended Rel Tab Take 1 tablet by mouth twice daily. - flash glucose sensor (FREESTYLE MAHESH 2 SENSOR) kit Apply new sensor every fourteen (14) days to upper arm. - magnesium citrate and oxide (MAGNESIUM CITRATE,MAG OXIDE) 250 mg cap Take 2 capsules by mouth twice daily. - WALKER ROLLATOR SEAT WITH 6 WHEELS - RED Ultra-light with seat if possible, if not please give lightest possible rollator with a seat. Please send to [facility]. - omega-3 fatty acids 1,000 mg cap Take 4 capsules by mouth once daily. Patient reports she is taking 4,000 mg daily - carbidopa-levodopa (SINEMET) 25-100 mg per tablet Take 1.5 tablets by mouth three times daily. - amLODIPine (NORVASC) 10 mg tablet Take 1 tablet by mouth once daily. - cholecalciferol (VITAMIN D3) 50 mcg (2,000 unit) tablet Take 1 tablet by mouth once daily. - cloNIDine HCl (CATAPRES) 0.3 mg tablet Take 1 tablet by mouth twice daily. - mecobalamin, vitamin B12, (B12 ACTIVE) 1,000 mcg chew Take 1 tablet by mouth once daily. - phytonadione, vit K1, (VITAMIN K) 100 mcg tablet Take 100 mcg by mouth once daily. - blood sugar diagnostic (BLOOD GLUCOSE TEST) test strip Test blood sugar(s) 3 times daily and as needed for symptoms of high and low sugars. Dx: Other DM Code E11.40 Insulin: Yes - Lancets lancets Check blood sugar 3 times daily and as needed for symptoms of high or low sugars DX: E11.40 Insulin:Yes. Please give lancet pen if does not come with the meter - Blood-Glucose Meter monitoring kit Glucose Meter of Choice - Kit - As directed to test blood sugar up to 3 times daily. Dx: Other DM Code E11.40. - Insulin [place], Disposable, (BD INSULIN PEN NEEDLE UF) 29 gauge x 1/2 ndle USE TO INJECT TWICE DAILY - Aspirin 81 mg tab Take 1 tablet by mouth once daily. Take with food. Problem List As Of Date 12/31/2022 Noted Resolved CARPAL TUNNEL SYNDROME [G56.00] 11/05/2005 IRRITABLE COLON [K58.9] 11/05/2005 ASTHMA UNSPECIFIED [J45.909] 11/05/2005 Bipolar I disorder, single manic episode (HCC) *11/05/2005 04/21/2017 NEUROPATHY IN DIABETES [E11.42] 11/05/2005 12/07/2014 Internal hemorrhoids [K64.8] 11/05/2005 SLEEP APNEA NOS [G47.30] 11/05/2005 Fibromyalgia [M79.7] 11/05/2005 COMMON RIGO (more content not included)... [facility] 12-29-2022 Miscellaneous Notes Pt notified. Noa Garcia Ma For low blood sugars noted at home recommend resuming Tresiba at a decreased dose of 10 units daily at bedtime. Restart today. Recommend 3 meals during the day and a bedtime snack. Meals do not have to be large, but needs to be eating regularly throughout the day. She has an appointment scheduled for this Thursday. Hemoglobin A1C (%) Date Value 12/26/2022 6.2 08/19/2022 5.9 01/15/2021 6.5 08/20/2020 6.1 Discussed with Sagrario Mosqueda MD. documented in this encounter [facility] 12-26-2022 Note HNO ID: [id number] Author: Ricardo Benedict APRN.CNS Service: ? Author Type: Nurse Specialist Type: Progress Notes Filed: 12/26/2022 11:46 AM Note Text: SUBJECTIVE: Shingrix Vaccine(1 of 2) Never done Hepatitis B Vaccine(1 of 3 - Risk 3-dose series) Never done RSV Vaccine(1 - 1-dose 60+ series) Never done Mammogram Screening due on 04/21/2019 Urine Albumin:Creatinine Ratio due on 01/15/2022 Dilated Retinal Exam due on 03/13/2022 Bone Density Screening Never done Advance Directive Discussion Never done Influenza Vaccine(1) due on 10/31/2022 HPI Tiffanie Devlin is a 67 year old female. PMH significant for ACTIVE PROBLEM LIST Carpal Tunnel Syndrome Irritable Bowel Syndrome Unspecified Asthma(493.90) Internal Hemorrhoids Unspecified Sleep Apnea Fibromyalgia Migraine Without Aura, Without Mention of Intractable Migraine Without Mention of Status Migrainosus Edema Agoraphobia With Panic Disorder Generalized Oa Restless legs syndrome Mixed Hyperlipidemia Htn (Hypertension) Esophageal Reflux Unspecified Noninflammatory Disorder of Vulva and Perineum Urgency of Urination Postmenopausal Atrophic Vaginitis Diverticulosis of Colon (Without Mention of Hemorrhage) Benign Neoplasm of Colon Esophagitis, Unspecified Statin Intolerance Type 2 Diabetes Mellitus With Diabetic Neuropathy, With Long-Term Current Use of Insulin (Hcc) Carpal Tunnel Syndrome, Right Carpal Tunnel Syndrome, Left Josie (Obstructive Sleep Apnea) Asthma Gerd (Gastroesophageal Reflux Disease) Impingement Syndrome of Left Shoulder Morbid Obesity With Bmi of 45.0-49.9, Adult (Hcc) Vitreous Floaters of Both Eyes Punctate Keratitis of Both Eyes Type 2 Diabetes Mellitus, With Long-Term Current Use of Insulin (Hcc) Cortical Age-Related Cataract, Bilateral Unspecified Severe Protein-Calorie Malnutrition (Hcc) Platelets Decreased (Hcc) Presents today regarding low blood sugars at home. She notes for the last 3 days she has not taken Tresiba and still having low blood sugar readings. She reports not eating meals, perhaps 2 meals a day. She is unable to use a glucometer due to tremors. 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 she reports just holding the Tresiba the last 3 days. She does not typically feel when her blood sugar runs low unless is less than 50. Without report of excessive thirst or increased frequency of urination, chest pain or dyspnea , numbness, tingling or pain in extremities, new or unusual visual symptoms, low sugar/hypoglycemic reactions, weight loss/gain, lightheadedness/dizziness, and bowel changes/loose stools. Patient's last HgA1C was Hemoglobin A1C (%) Date Value 08/19/2022 5.9 02/14/2022 6.0 01/15/2021 6.5 08/20/2020 6.1 ) Review of Systems Constitutional: Negative. Endocrine: Negative. Neurological: Positive for tremors. Objective BP 146/65 Pulse 89 Resp 16 Wt 103 kg (227 lb) BMI 40.21 kg/m? Physical Exam Vitals and nursing note reviewed. Constitutional: General: She is not in acute distress. Appearance: She is not ill-appearing. HENT: Head: Normocephalic and atraumatic. Eyes: Conjunctiva/sclera: Conjunctivae normal. Cardiovascular: Rate and Rhythm: Normal rate and regular rhythm. Heart sounds: Normal heart sounds. Pulmonary: Effort: Pulmonary effort is normal. Breath sounds: Normal breath sounds. Skin: General: Skin is warm and dry. Neurological: Mental Status: She is alert. Mental status is at baseline. ALLERGIES Allergen Reactions Pineapple Swelling was not ripe Adhesive Tape (Wendy* Rash Advair Diskus [Flut* Swelling Altace [Ramipril] Anaphylaxis Atrovent [Ipratropi* Rash Biaxin [Clarithromy* Mental Status Change Can take zithromax Cardizem [Diltiazem* Anaphylaxis Celexa [Citalopram * Muscle pain and fatigue Ciprofloxacin Rash, Other: See Comments Tendonitis in hands Codeine Rash Covera-Hs [Verapami* Confusion, constipation Hyzaar [Losartan-Hy* Rash Cramps, chills Keflex [Cephalexin] Itching rash Labetalol Rash Lamictal [Lamotrigi* Rash Latex Rash Occurs if latex on skin for long periods Lortab [Hydrocodone* Mental Status Change Methenamine Rash, Swelling, Itching, Anaphylaxis throat swelling Mobic [Meloxicam] Other: See Comments [place] like something squeezing heart Prozac [Fluoxetine * Shortness of Breath sob,chest pains Septra [Sulfamethox* GI Upset Seroquel [Quetiapin* Shortness of Breath Topamax [Topiramate] Other: See Comments gait instability and felt stupid Victoza [Liraglutid* Swelling throat swelling Zocor [Simvastatin] Swelling Zoloft [Sertraline * Intolerance Severe chest pain Already tried pravastatin and lovastatin and atorvastatin and had adverse effects with all Zonegran [Zonisamid* Shortness of Breath Medication insulin degludec (TRESIBA FLEXTOUCH U-200) 2 (more content not included)... [facility] 12-26-2022 History of Presen t illness Narrative SUBJECTIVE: Shingrix Vaccine(1 of 2) Never done Hepatitis B Vaccine(1 of 3 - Risk 3-dose series) Never done RSV Vaccine(1 - 1-dose 60+ series) Never done Mammogram Screening due on 04/21/2019 Urine Albumin:Creatinine Ratio due on 01/15/2022 Dilated Retinal Exam due on 03/13/2022 Bone Density Screening Never done Advance Directive Discussion Never done Influenza Vaccine(1) due on 10/31/2022 HPI Tiffanie Devlin is a 67 year old female. PMH significant for ACTIVE PROBLEM LIST Carpal Tunnel Syndrome Irritable Bowel Syndrome Unspecified Asthma(493.90) Internal Hemorrhoids Unspecified Sleep Apnea Fibromyalgia Migraine Without Aura, Without Mention of Intractable Migraine Without Mention of Status Migrainosus Edema Agoraphobia With Panic Disorder Generalized Oa Restless legs syndrome Mixed Hyperlipidemia Htn (Hypertension) Esophageal Reflux Unspecified Noninflammatory Disorder of Vulva and Perineum Urgency of Urination Postmenopausal Atrophic Vaginitis Diverticulosis of Colon (Without Mention of Hemorrhage) Benign Neoplasm of Colon Esophagitis, Unspecified Statin Intolerance Type 2 Diabetes Mellitus With Diabetic Neuropathy, With Long-Term Current Use of Insulin (Hcc) Carpal Tunnel Syndrome, Right Carpal Tunnel Syndrome, Left Josie (Obstructive Sleep Apnea) Asthma Gerd (Gastroesophageal Reflux Disease) Impingement Syndrome of Left Shoulder Morbid Obesity With Bmi of 45.0-49.9, Adult (Hcc) Vitreous Floaters of Both Eyes Punctate Keratitis of Both Eyes Type 2 Diabetes Mellitus, With Long-Term Current Use of Insulin (Hcc) Cortical Age-Related Cataract, Bilateral Unspecified Severe Protein-Calorie Malnutrition (Hcc) Platelets Decreased ([facility]) Presents today regarding low blood sugars at home. She notes for the last 3 days she has not taken Tresiba and still having low blood sugar readings. She reports not eating meals, perhaps 2 meals a day. She is unable to use a glucometer due to tremors. 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 she reports just holding the Tresiba the last 3 days. She does not typically feel when her blood sugar runs low unless is less than 50. Without report of excessive thirst or increased frequency of urination, chest pain or dyspnea , numbness, tingling or pain in extremities, new or unusual visual symptoms, low sugar/hypoglycemic reactions, weight loss/gain, lightheadedness/dizziness, and bowel changes/loose stools. Patient's last HgA1C was Hemoglobin A1C (%) Date Value 08/19/2022 5.9 02/14/2022 6.0 01/15/2021 6.5 08/20/2020 6.1 ) Review of Systems Constitutional: Negative. Endocrine: Negative. Neurological: Positive for tremors. Objective BP 146/65 Pulse 89 Resp 16 Wt 103 kg (227 lb) BMI 40.21 kg/m Physical Exam Vitals and nursing note reviewed. Constitutional: General: She is not in acute distress. Appearance: She is not ill-appearing. HENT: Head: Normocephalic and atraumatic. Eyes: Conjunctiva/sclera: Conjunctivae normal. Cardiovascular: Rate and Rhythm: Normal rate and regular rhythm. Heart sounds: Normal heart sounds. Pulmonary: Effort: Pulmonary effort is normal. Breath sounds: Normal breath sounds. Skin: General: Skin is warm and dry. Neurological: Mental Status: She is alert. Mental status is at baseline. ALLERGIES Allergen Reactions Pineapple Swelling was not ripe Adhesive Tape (Ewndy* Rash Advair Diskus [Flut* Swelling Altace [Ramipril] Anaphylaxis Atrovent [Ipratropi* Rash Biaxin [Clarithromy* Mental Status Change Can take zithromax Cardizem [Diltiazem* Anaphylaxis Celexa [Citalopram * Muscle pain and fatigue Ciprofloxacin Rash, Other: See Comments Tendonitis in hands Codeine Rash Covera-Hs [Verapami* Confusion, constipation Hyzaar [Losartan-Hy* Rash Cramps, chills Keflex [Cephalexin] Itching rash Labetalol Rash Lamictal [Lamotrigi* Rash Latex Rash Occurs if latex on skin for long periods Lortab [Hydrocodone* Mental Status Change Methenamine Rash, Swelling, Itching, Anaphylaxis throat swelling Mobic [Meloxicam] Other: See Comments [place] like something squeezing heart Prozac [Fluoxetine * Shortness of Breath sob,chest pains Septra [Sulfamethox* GI Upset Seroquel [Quetiapin* Shortness of Breath Topamax [Topiramate] Other: See Comments gait instability and felt stupid Victoza [Liraglutid* Swelling throat swelling Zocor [Simvastatin] Swelling Zoloft [Sertraline * Intolerance Severe chest pain Already tried pravastatin and lovastatin and atorvastatin and had adverse effects with all Zonegran [Zonisamid* Shortness of Breath Medication insulin degludec (TRESIBA FLEXTOUCH U-200) 200 unit/mL (3 mL) injection Inject 56 Units subcutaneously daily at bedtime. ON HOLD FOR LOW BLOOD SUGAR oxybutynin ER (DITROPAN XL) 15 mg 24 hr Extended Rel Tab Take 1 tablet by mouth twice daily. flash glucose sensor (FREESTYLE MAHESH 2 SENSOR) kit Apply new sensor every fourteen (14) days to upper arm. magnesium citrate and oxide (MAGNESIUM CITRATE,MAG OXIDE) 250 mg cap Take 2 capsules by mouth twice daily. WALKER ROLLATOR SEAT WITH 6 WHEELS - RED Ultra-light with seat if possible, if not please give lightest possible rollator with a seat. Please send to [employer]. omega-3 fatty acids 1,000 mg cap Take 4 capsules by mouth once daily. Patient reports she is taking 4,000 mg daily amLODIPine (NORVASC) 10 mg tablet Take 1 tablet by mouth once daily. cholecalciferol (VITAMIN D3) 50 mcg (2,000 unit) tablet Take 1 tablet by mouth once daily. cloNIDine HCl (CATAPRES) 0.3 mg tablet Take 1 tablet by mouth twice daily. mecobalamin, vitamin B12, (B12 ACTIVE) 1,000 mcg chew Take 1 tablet by mouth once daily. phytonadione, vit K1, (VITAMIN K) 100 mcg tablet Take 100 mcg by mouth once daily. blood sugar diagnostic (BLOOD GLUCOSE TEST) test strip Test blood sugar(s) 3 times daily and as needed for symptoms of high and low sugars. Dx: Other DM Code E11.40 Insulin: Yes Lancets lancets Check blood sugar 3 times daily and as needed for symptoms of high or low sugars DX: E11.40 Insulin:Yes. Please give lancet pen if does not come with the meter Blood-Glucose Meter monitoring kit Glucose Meter of Choice - Kit - As directed to test blood sugar up to 3 times daily. Dx: Other DM Code E11.40. Insulin [place], Disposable, (BD INSULIN PEN NEEDLE UF) 29 gauge x 1/2 ndle USE TO INJECT TWICE DAILY Aspirin 81 mg tab Take 1 tablet by mouth once daily. Take with food. (Patient taking differently: Take 81 mg by mouth two times a day. Take with food.) carbidopa-levodopa (SINEMET) 25-100 mg per tablet Take 1.5 tablets by mouth three times daily. 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 ASTHMA UNSPECIFIED 11/05/2005 Benign neoplasm of colon BIPOLAR - SINGLE MANIC EPISODE NOS 11/05/2005 Bipolar affective disorder (HCC) 09/12/2009 depression at this point; no recent manic episodes; noted flare up ofr auditory hallucinations Bipolar I disorder, single manic episode (HCC) 11/05/2005 Carpal tunnel syndrome 11/05/2005 Bilateral DEPRESSIVE DISORDER NEC 11/05/2005 Diabetes mellitus type 2, insulin dependent (HCC) DIABETES MELLITUS TYPE II-UNCOMPL 08/30/2000 Diverticulosis of colon (without mention of hemorrhage) Edema 11/05/2005 Esophageal reflux 05/13/2006 Esophagitis, unspecified EXTRAPYRAMIDAL DIS NEC 11/05/2005 GENERAL OSTEOARTHROSIS 11/05/2005 HYPERLIPIDEMIA NEC/NOS 11/05/2005 HYPERTENSION NOS 02/09/2006 IRRITABLE COLON 11/05/2005 Morbid Obesity MYALGIA AND MYOSITIS NOS 11/05/2005 NEUROPATHY IN DIABETES 11/05/2005 SLEEP APNEA NOS 11/05/2005 Had CPAP mask, not using Statin intolerance Social History Tobacco Use Smoking status: Never Smokeless tobacco: Never Substance Use Topics Alcohol use: No Drug use: No ASSESSMENT/PLAN: 1. Type 2 diabetes mellitus with diabetic neuropathy, with long-term current use of insulin ([facility]) - ICD9: 250.60, 357.2, V58.67, ICD10: E11.40, Z79.4 (primary diagnosis) Presents for follow-up of low blood sugars noted at home on CGM. Unable to use glucometer is due to tremors. Notes eating once or twice daily. CGM readings have dropped below 100 at night between 3 and 6 AM for the last 30 days. BMP and A1c completed today Suspect decreased intake contributing. Possible incorrect readings on CGM. - HEMOGLOBIN A1C (POC) - INSULIN DEGLUDEC (U-200) 200 UNIT/ML (3 ML) SUBCUTANEOUS PEN 2. Hypoglycemia - ICD9: 251.2, ICD10: E16.2 Advised: Do not take insulin for now. Continue to monitor your blood sugar. Keep a piece of candy or food with you in the event you have a low blood sugar. Let us know if blood glucose is running 250 or greater so we can help you adjust your medication doses Ricardo Benedict APRN.CNS Medical Decision Making: Problems: Moderate: 1+ chronic illnesses with change Risk: Moderate: Drug management Medical Decision Making Level: 4 - Moderate documented in this encounter [facility] 12-26-2022 Instructions Ricardo Benedict APRN.CNS - 12/26/2022 10:28 AM EDT Do not take insulin for now. Continue to monitor your blood sugar. Keep a piece of candy or food with you in the event you have a low blood sugar. Let us know if blood glucose is running 250 or greater so we can help you adjust your medication doses documented in this encounter [facility] 12-25-2022 Miscellaneous Notes Patient notified of providers message and verbalized understanding. Patient states that CGM is new. She has only had it for 3 weeks and does not have a glucose meter to check it with. His glucometer reading also low? May want to check if she has not done this Spoke with patient. Given message from provider's office. Patient verbalizes understanding. Patient states she has not been ill, no nausea, vomiting, diarrhea. She says she has no symptoms of low blood sugar but her CGM alarms keep showing low readings. She has not taken Insulin x 2 days. Scheduled appointment with Ricardo LEE tomorrow. Patient is aware of lab orders. Unable to come today to have them done. Kassi Lo RN Attempted to contact patient but no answer. Left message for patient to call office and ask to speak to a nurse regarding low blood sugars Is she feeling unwell?. She is not taking any insulin at all now? And eating normally? Has she been ill, nausea vomiting diarrhea or decreased oral intake? If her glucose is in the 70s eating normally and not taking insulin she should remain off of insulin for now and continue to check her BS levels. Please offer a visit and labs tomorrow. Schedule if willing ER for any concerning symptoms Patient calls to report low blood sugar readings of 60-70's range fasting and throughout the day (current reading 76). Patient hasn't taken Tresiba for past two days. Patient asking if she should continue to hold the tresiba and what she should be doing to increase blood sugars. Nurse triage completed. Protocol recommends notify PCP now. Reviewed Care advice. Patient needs advised on Tresiba and asking provider specifically if she has any recommendations. Reason for Disposition [1] Caller has URGENT medication or insulin pump question AND [2] triager unable to answer question Answer Assessment - Initial Assessment Questions 1. SYMPTOMS: Asymptomatic. Current BS reading is 76. Patient is concerned that her BS is dropping in the 60-70's range over the past couple of days. Patient has not taken her tresiba for the past two days. Patient has been eating foods such as sandwiches, apples, cookies, crackers, macaroni and cheese, caramel to bring food up but reports that it is remaining in the 70's. 2. ONSET: No symptoms but machine started reading low 2 days ago. 3. BLOOD GLUCOSE: 76 4. USUAL RANGE: 90-299 5. TYPE 1 or 2: type 2 6. INSULIN: Tresiba 60 units in the AM and 56 units in the PM but hasn't taken in 2 days. 7. DIABETES PILLS: NA 8. OTHER SYMPTOMS: Denies fever, frequent urination, difficulty breathing, or vomiting. 9. LOW BLOOD GLUCOSE TREATMENT:Patient reports that she ate fruit and brought blood sugar up to the 76. 10. FOOD: Currently Fruit but also cookies, crackers, apples with caramel, sandwich, milk, and sprite. 11. ALONE: yes Protocols used: Diabetes - Low Blood [id number] documented in this encounter [facility] 10-30-2022 Miscellaneous Notes Rec'd completed and all faxed back. Ramya from [employer] called to verify receipt of fax for a request of supplies for the patient. Please advise. Sophia Heard documented in this encounter [facility] 10-08-2022 Note HNO ID: [id number] Author: Sagrario Mosqueda MD Service: ? Author Type: Physician Type: Progress Notes Filed: 10/29/2022 8:29 PM Note Text: This note was created using [employer]. Subjective Tiffanie Devlin is a 67 year old female. Patient presents with: 8 month follow up SUBJECTIVE: Tiffanie Devlin is a 67 year old year old lady here today for 8 month follow up appointment for review of medical conditions. Noted rash to med for tremor when dose was increased--Sinemet. Rash all over. Did not tolerate any of the other meds tried (Topamax, Zonegran, Primidone, and Keppra) MRI done and reviewed results. Plans to contact them for follow up and decide about further treatment. No more pain in toe after treated by Dr. Shearer. Rash noted. Sun screen helped with rash but skin dried out. Doing well with CGM for controlling DM. Stable on current meds. See Assessment and Plan for issues addressed. 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 ASTHMA UNSPECIFIED 11/05/2005 Benign neoplasm of colon BIPOLAR - SINGLE MANIC EPISODE NOS 11/05/2005 Bipolar affective disorder (HCC) 09/12/2009 depression at this point; no recent manic episodes; noted flare up ofr auditory hallucinations Bipolar I disorder, single manic episode (HCC) 11/05/2005 Carpal tunnel syndrome 11/05/2005 Bilateral DEPRESSIVE DISORDER NEC 11/05/2005 Diabetes mellitus type 2, insulin dependent (HCC) DIABETES MELLITUS TYPE II-UNCOMPL 08/30/2000 Diverticulosis of colon (without mention of hemorrhage) Edema 11/05/2005 Esophageal reflux 05/13/2006 Esophagitis, unspecified EXTRAPYRAMIDAL DIS NEC 11/05/2005 GENERAL OSTEOARTHROSIS 11/05/2005 HYPERLIPIDEMIA NEC/NOS 11/05/2005 HYPERTENSION NOS 02/09/2006 IRRITABLE COLON 11/05/2005 Morbid Obesity MYALGIA AND MYOSITIS NOS 11/05/2005 NEUROPATHY IN DIABETES 11/05/2005 SLEEP APNEA NOS 11/05/2005 Had CPAP mask, not using Statin intolerance Current Outpatient Medications Medication Sig magnesium citrate and oxide (MAGNESIUM CITRATE,MAG OXIDE) 250 mg cap Take 2 capsules by mouth twice daily. WALKER ROLLATOR SEAT WITH 6 WHEELS - RED Ultra-light with seat if possible, if not please give lightest possible rollator with a seat. Please send to [facility]. Blood-Glucose Meter,Continuous (DEXCOM G7 SHEET METAL WORKER) [facility] Use to check blood sugar at least four (4) times daily. Blood-Glucose Sensor (pickrset G7 SENSOR) gerard Apply new sensor every ten (10) days. omega-3 fatty acids 1,000 mg cap Take 4 capsules by mouth once daily. Patient reports she is taking 4,000 mg daily carbidopa-levodopa (SINEMET) 25-100 mg per tablet Take 1.5 tablets by mouth three times daily. amLODIPine (NORVASC) 10 mg tablet Take 1 tablet by mouth once daily. cholecalciferol (VITAMIN D3) 50 mcg (2,000 unit) tablet Take 1 tablet by mouth once daily. cloNIDine HCl (CATAPRES) 0.3 mg tablet Take 1 tablet by mouth twice daily. insulin degludec (TRESIBA FLEXTOUCH U-200) 200 unit/mL (3 mL) injection Inject 56 Units subcutaneously daily at bedtime. (Patient taking differently: Inject 60 Units subcutaneously every morning.) mecobalamin, vitamin B12, (B12 ACTIVE) 1,000 mcg chew Take 1 tablet by mouth once daily. oxybutynin ER (DITROPAN XL) 15 mg 24 hr Extended Rel Tab Take 1 tablet by mouth twice daily. phytonadione, vit K1, (VITAMIN K) 100 mcg tablet Take 100 mcg by mouth once daily. blood sugar diagnostic (BLOOD GLUCOSE TEST) test strip Test blood sugar(s) 3 times daily and as needed for symptoms of high and low sugars. Dx: Other DM Code E11.40 Insulin: Yes Lancets lancets Check blood sugar 3 times daily and as needed for symptoms of high or low sugars DX: E11.40 Insulin:Yes. Please give lancet pen if does not come with the meter Blood-Glucose Meter monitoring kit Glucose Meter of Choice - Kit - As directed to test blood sugar up to 3 times daily. Dx: Other DM Code E11.40. Insulin [place], Disposable, (BD INSULIN PEN NEEDLE UF) 29 gauge x 1/2 ndle USE TO INJECT TWICE DAILY Aspirin 81 mg tab Take 1 tablet by mouth once daily. Take with food. (Patient taking differently: Take 81 mg by mouth twice daily. Take with food.) No current facility-administered medications for this visit. Review of Systems Objective BP 178/66 Pulse 101 Temp 37 ?C (98.6 ?F) Resp 18 Wt 105.7 kg (233 lb) SpO2 96% BMI 41.27 kg/m? 10/08/22 1442 BP: 178/66 Pulse: 101 Resp: 18 Temp: 37 ?C (98.6 ?F) SpO2: 96% Weight: 105.7 kg (233 lb) Last 5 Encounter Wt Readings: Date: Wt: 10/08/2022 105.7 kg (233 lb) 08/22/2022 104.8 kg (231 lb) 08/14/2022 102.3 kg (225 lb 9.6 oz) 04/10/2022 108.1 kg (238 lb 6.4 oz) 02/10/2022 110.7 kg (244 lb) No waist measurement recorded Estimated body mass index is 41.27 kg/m? as calculated from the following: Height as of 07/05/21: 160 cm (5' 3 ). Weight as of this encounter: 105.7 kg (23 (more content not included)... [facility] 10-08-2022 History of Presen t illness Narrative This note was created using [employer]. Subjective Tiffanie Devlin is a 67 year old female. Patient presents with: 8 month follow up SUBJECTIVE: Tiffanie Devlin is a 67 year old year old lady here today for 8 month follow up appointment for review of medical conditions. Noted rash to med for tremor when dose was increased--Sinemet. Rash all over. Did not tolerate any of the other meds tried (Topamax, Zonegran, Primidone, and Keppra) MRI done and reviewed results. Plans to contact them for follow up and decide about further treatment. No more pain in toe after treated by Dr. Shearer. Rash noted. Sun screen helped with rash but skin dried out. Doing well with CGM for controlling DM. Stable on current meds. See Assessment and Plan for issues addressed. 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 ASTHMA UNSPECIFIED 11/05/2005 Benign neoplasm of colon BIPOLAR - SINGLE MANIC EPISODE NOS 11/05/2005 Bipolar affective disorder (HCC) 09/12/2009 depression at this point; no recent manic episodes; noted flare up ofr auditory hallucinations Bipolar I disorder, single manic episode (HCC) 11/05/2005 Carpal tunnel syndrome 11/05/2005 Bilateral DEPRESSIVE DISORDER NEC 11/05/2005 Diabetes mellitus type 2, insulin dependent (HCC) DIABETES MELLITUS TYPE II-UNCOMPL 08/30/2000 Diverticulosis of colon (without mention of hemorrhage) Edema 11/05/2005 Esophageal reflux 05/13/2006 Esophagitis, unspecified EXTRAPYRAMIDAL DIS NEC 11/05/2005 GENERAL OSTEOARTHROSIS 11/05/2005 HYPERLIPIDEMIA NEC/NOS 11/05/2005 HYPERTENSION NOS 02/09/2006 IRRITABLE COLON 11/05/2005 Morbid Obesity MYALGIA AND MYOSITIS NOS 11/05/2005 NEUROPATHY IN DIABETES 11/05/2005 SLEEP APNEA NOS 11/05/2005 Had CPAP mask, not using Statin intolerance Current Outpatient Medications Medication Sig magnesium citrate and oxide (MAGNESIUM CITRATE,MAG OXIDE) 250 mg cap Take 2 capsules by mouth twice daily. WALKER ROLLATOR SEAT WITH 6 WHEELS - RED Ultra-light with seat if possible, if not please give lightest possible rollator with a seat. Please send to [employer]. Blood-Glucose Meter,Continuous (DEXCOM G7 SHEET METAL WORKER) [facility] [place] Use to check blood sugar at least four (4) times daily. Blood-Glucose Sensor (DEXCOM G7 SENSOR) gerard Apply new sensor every ten (10) days. omega-3 fatty acids 1,000 mg cap Take 4 capsules by mouth once daily. Patient reports she is taking 4,000 mg daily carbidopa-levodopa (SINEMET) 25-100 mg per tablet Take 1.5 tablets by mouth three times daily. amLODIPine (NORVASC) 10 mg tablet Take 1 tablet by mouth once daily. cholecalciferol (VITAMIN D3) 50 mcg (2,000 unit) tablet Take 1 tablet by mouth once daily. cloNIDine HCl (CATAPRES) 0.3 mg tablet Take 1 tablet by mouth twice daily. insulin degludec (TRESIBA FLEXTOUCH U-200) 200 unit/mL (3 mL) injection Inject 56 Units subcutaneously daily at bedtime. (Patient taking differently: Inject 60 Units subcutaneously every morning.) mecobalamin, vitamin B12, (B12 ACTIVE) 1,000 mcg chew Take 1 tablet by mouth once daily. oxybutynin ER (DITROPAN XL) 15 mg 24 hr Extended Rel Tab Take 1 tablet by mouth twice daily. phytonadione, vit K1, (VITAMIN K) 100 mcg tablet Take 100 mcg by mouth once daily. blood sugar diagnostic (BLOOD GLUCOSE TEST) test strip Test blood sugar(s) 3 times daily and as needed for symptoms of high and low sugars. Dx: Other DM Code E11.40 Insulin: Yes Lancets lancets Check blood sugar 3 times daily and as needed for symptoms of high or low sugars DX: E11.40 Insulin:Yes. Please give lancet pen if does not come with the meter Blood-Glucose Meter monitoring kit Glucose Meter of Choice - Kit - As directed to test blood sugar up to 3 times daily. Dx: Other DM Code E11.40. Insulin [place], Disposable, (BD INSULIN PEN NEEDLE UF) 29 gauge x 1/2 ndle USE TO INJECT TWICE DAILY Aspirin 81 mg tab Take 1 tablet by mouth once daily. Take with food. (Patient taking differently: Take 81 mg by mouth twice daily. Take with food.) No current facility-administered medications for this visit. Review of Systems Objective BP 178/66 Pulse 101 Temp 37 C (98.6 F) Resp 18 Wt 105.7 kg (233 lb) SpO2 96% BMI 41.27 kg/m 10/08/22 1442 BP: 178/66 Pulse: 101 Resp: 18 Temp: 37 C (98.6 F) SpO2: 96% Weight: 105.7 kg (233 lb) Last 5 Encounter Wt Readings: Date: Wt: 10/08/2022 105.7 kg (233 lb) 08/22/2022 104.8 kg (231 lb) 08/14/2022 102.3 kg (225 lb 9.6 oz) 04/10/2022 108.1 kg (238 lb 6.4 oz) 02/10/2022 110.7 kg (244 lb) No waist measurement recorded Estimated body mass index is 41.27 kg/m as calculated from the following: Height as of 07/05/21: 160 cm (5' 3 ). Weight as of this encounter: 105.7 kg (233 lb). Last 5 Encounter BP Readings: Date: BP: 10/08/2022 114/70[forearm. left[ 08/22/2022 130/90 08/14/2022 173/84 04/10/2022 125/74 02/10/2022 122/72 Physical Exam Constitutional: Appearance: Normal appearance. HENT: Head: Normocephalic. Eyes: Conjunctiva/sclera: Conjunctivae normal. Cardiovascular: Rate and Rhythm: Normal rate and regular rhythm. Heart sounds: Normal heart sounds. Pulmonary: Effort: Pulmonary effort is normal. Breath sounds: Normal breath sounds. Musculoskeletal: Right lower le+ Pitting Edema present. Left lower le+ Pitting Edema present. Skin: General: Skin is warm and dry. Neurological: General: No focal deficit present. Mental Status: She is alert and oriented to person, place, and time. Motor: Tremor present. Psychiatric: Mood and Affect: Mood normal. Behavior: Behavior normal. Thought Content: Thought content normal. Judgment: Judgment normal. Hemoglobin A1C (%) Date Value 08/19/2022 5.9 02/14/2022 6.0 06/10/2021 6.2 01/15/2021 6.5 08/20/2020 6.1 04/30/2020 6.8 03/01/2020 7.0 11/14/2019 7.5 Assessment and Plan Encounter Diagnosis ICD-10-CM 1. Type 2 diabetes mellitus with diabetic neuropathy, with long-term current use of insulin ([facility]) E11.40 COMP METABOLIC PANEL Z79.4 HGB A1C ALBUMIN/CREAT RATIO RND UR Continue present management, including using CGM to control DM well. 2. Mixed hyperlipidemia E78.2 LIPID PANEL, NONFASTING 3. Tremor, essential G25.0 Continue Sinemet 4. Primary hypertension I10 COMP METABOLIC PANEL HGB A1C CBC Well controlled. Continue present management 5. Class 3 severe obesity due to excess calories with body mass index (BMI) of 40.0 to 44.9 in adult, unspecified whether serious comorbidity present ([facility]) E66.01 Z68.41 See below Above issues addressed with patient. Patient involved in shared decision making for management of medical issues. History and medications reviewed. Epic updated as needed Refills and/or prescriptions taken care of and meds adjusted as indicated after reviewed history, exam and labs. Health Maintenance reviewed. Updated record and/or ordered tests as recorded. Encouraged on efforts at healthy diet and regular exercise and adequate sleep. Needs to keep working on diet and exercise with lifestyle changes for effective weight loss as well as control of DM, and control of BP and lipids. Weight down to 230s--starting to trend up but had lost a lot of weight since 3 years ago from 270's. Continue present management. I spent a total of 37 minutes on the date of the service which included [id number] patient care, completing clinical documentation, performing a medically appropriate examination, counseling and educating the patient/family/caregiver, and ordering medications, tests, or procedures. Sagrario Mosqueda MD documented in this encounter [facility] 09-18-2022 Note HNO ID: [id number] Author: Meron De La Fuente RT(Fidel) Service: ? Author Type: Technologist Type: Progress Notes Filed: 09/18/2022 7:59 AM Note Text: Radiology Service Progress Note DATE OF SERVICE: September 18, 2022 TIME: 7:58 AM PATIENT IDENTITY VERIFICATION COMPLETED USING TWO (2) STANDARD IDENTIFIERS: Name and Date of confirmed by patient verbally. FALL SCREENING: Has the patient had 2 falls in the last year or 1 fall with injury or currently using an Ambulatory Assistive Device (Walker, Cane, Wheelchair, Crutches, etc.)? Yes, Patient High Risk for Falls What interventions were put in place to prevent falls during this visit? Instructed Patient to Call for Help if Needed, Offered Assistance with Transfers/Clothing, Instructed Patient to Remain Seated (Not on Exam Table) Until Exam, and Increased Observations by Caregivers PATIENT GENDER DATA: Female. status: : No status: NO. PATIENT RELEVANT IMPLANT DATA REVIEWED: Yes ALLERGIES: Reviewed and unchanged CONTRAST ALLERGY: NO. EXAM: MRI - CONTRAST TYPE: GROUP II PERIPHERAL IV DATA: Ambulatory: A peripheral IV was started in the Right antecubital site with a Angio cath: 24 gauge. RADIOLOGY DEPARTMENT: MR; Exam(s) Completed: Head: Routine Brain Lower MSK: Forefoot/Midfoot, right SIGNATURE: RT Dima(R) PATIENT NAME: Tiffanie Devlin DATE: September 18, 2022 TIME: 7:58 AM [facility] 08-26-2022 Miscellaneous Notes Pt read message at 12:29 PM on 08/26/2022 with no response. Closing encounter. Helga Perez LPN Should be short acting Sinemet. New prescription sent. If she needs short term supply sent to local pharmacy please let me know. Pt called in to let you know she just spoke with Anish Gongora and they received the new prescription sent in to them on Sinemet and what the pt is being told you can not split the Extended Release because it changes the medication. Pt concerned she is going to run out of medication. Please review and advise pt and pharmacy. Katy Martinez LPN documented in this encounter [facility] 08-26-2022 Miscellaneous Notes Anish Valverde was not going to send Carbidopa-Levodopa (sinemet) until PCP office called [phone]. Spoke to Sophia/pharmacist, needed to verify, there was a stop on Carbidopa-Levodopa CR 25-100. New prescription for Carbidopha-Levodopa (Sinemet) 25-100mg, Dispense 405 tablets, no refills, will be filled and mailed to Patient. Radha Bauman LPN documented in this encounter [facility] 08-22-2022 Miscellaneous Notes Fax received from [employer] stating Medicare will not approve a new walker until 10/2024. PATIENT NOTIFIED OF SAME. Explained that she can pay for it out of pocket or check thrift stores. documented in this encounter [facility] 08-22-2022 Note HNO ID: [id number] Author: Rebeca Ochoa APRN.SHAQUILLE Service: ? Author Type: Nurse Practitioner Type: Progress Notes Filed: 08/22/2022 12:23 PM Note Text: ANNIKA Devlin is a 67 year old female here today for a check up on her medical problems. Chief Complaint Patient presents with: Recheck: neuro visit for possible stroke HPI Tiffanie Devlin is a 67 year old female established patient who presents for follow up. Right side of face has a slight droop and drags right leg some. Not sure how long, son says she has looked like this for a while. Possibly developed in the last 3 months, saw neuro and they were unsure this was present with prior visit. Using a cane for ambulation. No falls, tries to stay close to things to hold on to. Thinks a Rollator might be helpful. Also having trouble with testing sugars because of tremors. Wondering about a CGM. On insulin, Tresiba. Side effects with a right sided pain on metformin. Stopped it and pain went away. Most recent hgba1c was 5.9%. Sees podiatry, last seen 08/15 for diabetic foot exam. No low sugars. Trying to eat high protein foods, not doing supplements right now. Has had a tremor for some time. On Sinemet. Has MRI in August with neuro follow up with [facility]. Most recent PLT level 106. Over the last 2 years prior lowest was 108. Her medications were reviewed today and her list is now up to date. Medications Current Outpatient Medications Medication Sig carbidopa-levodopa CR (SINEMET CR) 25-100 mg per tablet Take 1.5 tablets by mouth three times daily. Take 1.5 tablet daily at 7am, 1.5 tablet daily at 1pm, and 1.5 tablet daily at 7pm. amLODIPine (NORVASC) 10 mg tablet Take 1 tablet by mouth once daily. cholecalciferol (VITAMIN D3) 50 mcg (2,000 unit) tablet Take 1 tablet by mouth once daily. cloNIDine HCl (CATAPRES) 0.3 mg tablet Take 1 tablet by mouth twice daily. insulin degludec (TRESIBA FLEXTOUCH U-200) 200 unit/mL (3 mL) injection Inject 56 Units subcutaneously daily at bedtime. (Patient taking differently: Inject 60 Units subcutaneously every morning.) mecobalamin, vitamin B12, (B12 ACTIVE) 1,000 mcg chew Take 1 tablet by mouth once daily. oxybutynin ER (DITROPAN XL) 15 mg 24 hr Extended Rel Tab Take 1 tablet by mouth twice daily. phytonadione, vit K1, (VITAMIN K) 100 mcg tablet Take 100 mcg by mouth once daily. Aspirin 81 mg tab Take 1 tablet by mouth once daily. Take with food. (Patient taking differently: Take 81 mg by mouth twice daily. Take with food.) magnesium citrate and oxide (MAGNESIUM CITRATE,MAG OXIDE) 250 mg cap Take 2 capsules by mouth twice daily. WALKER ROLLATOR SEAT WITH 6 WHEELS - RED Ultra-light with seat if possible, if not please give lightest possible rollator with a seat. Please send to [employer]. Blood-Glucose Meter,Continuous (DEXCOM G7 SHEET METAL WORKER) [facility] [place] Use to check blood sugar at least four (4) times daily. Blood-Glucose Sensor (DEXCOM G7 SENSOR) gerard Apply new sensor every ten (10) days. omega-3 fatty acids 1,000 mg cap Take 4 capsules by mouth once daily. Patient reports she is taking 4,000 mg daily blood sugar diagnostic (BLOOD GLUCOSE TEST) test strip Test blood sugar(s) 3 times daily and as needed for symptoms of high and low sugars. Dx: Other DM Code E11.40 Insulin: Yes Lancets lancets Check blood sugar 3 times daily and as needed for symptoms of high or low sugars DX: E11.40 Insulin:Yes. Please give lancet pen if does not come with the meter Blood-Glucose Meter monitoring kit Glucose Meter of Choice - Kit - As directed to test blood sugar up to 3 times daily. Dx: Other DM Code E11.40. Insulin [place], Disposable, (BD INSULIN PEN NEEDLE UF) 29 gauge x 1/2 ndle USE TO INJECT TWICE DAILY No current facility-administered medications for this visit. ALLERGIES Allergen Reactions Pineapple Swelling was not ripe Adhesive Tape (Wendy* Rash Advair Diskus [Flut* Swelling Altace [Ramipril] Anaphylaxis Atrovent [Ipratropi* Rash Biaxin [Clarithromy* Mental Status Change Can take zithromax Cardizem [Diltiazem* Anaphylaxis Celexa [Citalopram * Muscle pain and fatigue Ciprofloxacin Rash, Other: See Comments Tendonitis in hands Codeine Rash Covera-Hs [Verapami* Confusion, constipation Hyzaar [Losartan-Hy* Rash Cramps, chills Keflex [Cephalexin] Itching rash Labetalol Rash Lamictal [Lamotrigi* Rash Latex Rash Occurs if latex on skin for long periods Lortab [Hydrocodone* Mental Status Change Methenamine Rash, Swelling, Itching, Anaphylaxis throat swelling Mobic [Meloxicam] Other: See Comments [place] like something squeezing heart Prozac [Fluoxetine * Shortness of Breath sob,chest pains Septra [Sulfamethox* GI Upset Seroquel [Quetiapin* Shortness of Breath Topamax [Topiramate] Other: See Comments gait instability and felt stupid Victoza [Liraglutid* Swelling throat swelling Zocor [Simvastatin] Swelling Zoloft [ (more content not included)... [facility] 08-22-2022 History of Presen t illness Narrative SUBJECTIVE Tiffanie Devlin is a 67 year old female here today for a check up on her medical problems. Chief Complaint Patient presents with: Recheck: neuro visit for possible stroke HPI Tiffanie Devlin is a 67 year old female established patient who presents for follow up. Right side of face has a slight droop and drags right leg some. Not sure how long, son says she has looked like this for a while. Possibly developed in the last 3 months, saw neuro and they were unsure this was present with prior visit. Using a cane for ambulation. No falls, tries to stay close to things to hold on to. Thinks a Rollator might be helpful. Also having trouble with testing sugars because of tremors. Wondering about a CGM. On insulin, Tresiba. Side effects with a right sided pain on metformin. Stopped it and pain went away. Most recent hgba1c was 5.9%. Sees podiatry, last seen 08/15 for diabetic foot exam. No low sugars. Trying to eat high protein foods, not doing supplements right now. Has had a tremor for some time. On Sinemet. Has MRI in August with neuro follow [facility] with [facility]. Most recent PLT level 106. Over the last 2 years prior lowest was 108. Her medications were reviewed today and her list is now up to date. Medications Current Outpatient Medications Medication Sig carbidopa-levodopa CR (SINEMET CR) 25-100 mg per tablet Take 1.5 tablets by mouth three times daily. Take 1.5 tablet daily at 7am, 1.5 tablet daily at 1pm, and 1.5 tablet daily at 7pm. amLODIPine (NORVASC) 10 mg tablet Take 1 tablet by mouth once daily. cholecalciferol (VITAMIN D3) 50 mcg (2,000 unit) tablet Take 1 tablet by mouth once daily. cloNIDine HCl (CATAPRES) 0.3 mg tablet Take 1 tablet by mouth twice daily. insulin degludec (TRESIBA FLEXTOUCH U-200) 200 unit/mL (3 mL) injection Inject 56 Units subcutaneously daily at bedtime. (Patient taking differently: Inject 60 Units subcutaneously every morning.) mecobalamin, vitamin B12, (B12 ACTIVE) 1,000 mcg chew Take 1 tablet by mouth once daily. oxybutynin ER (DITROPAN XL) 15 mg 24 hr Extended Rel Tab Take 1 tablet by mouth twice daily. phytonadione, vit K1, (VITAMIN K) 100 mcg tablet Take 100 mcg by mouth once daily. Aspirin 81 mg tab Take 1 tablet by mouth once daily. Take with food. (Patient taking differently: Take 81 mg by mouth twice daily. Take with food.) magnesium citrate and oxide (MAGNESIUM CITRATE,MAG OXIDE) 250 mg cap Take 2 capsules by mouth twice daily. WALKER ROLLATOR SEAT WITH 6 WHEELS - RED Ultra-light with seat if possible, if not please give lightest possible rollator with a seat. Please send to [employer]. Blood-Glucose Meter,Continuous (DEXCOM G7 SHEET METAL WORKER) [facility] [place] Use to check blood sugar at least four (4) times daily. Blood-Glucose Sensor (DEXCOM G7 SENSOR) gerard Apply new sensor every ten (10) days. omega-3 fatty acids 1,000 mg cap Take 4 capsules by mouth once daily. Patient reports she is taking 4,000 mg daily blood sugar diagnostic (BLOOD GLUCOSE TEST) test strip Test blood sugar(s) 3 times daily and as needed for symptoms of high and low sugars. Dx: Other DM Code E11.40 Insulin: Yes Lancets lancets Check blood sugar 3 times daily and as needed for symptoms of high or low sugars DX: E11.40 Insulin:Yes. Please give lancet pen if does not come with the meter Blood-Glucose Meter monitoring kit Glucose Meter of Choice - Kit - As directed to test blood sugar up to 3 times daily. Dx: Other DM Code E11.40. Insulin [place], Disposable, (BD INSULIN PEN NEEDLE UF) 29 gauge x 1/2 ndle USE TO INJECT TWICE DAILY No current facility-administered medications for this visit. ALLERGIES Allergen Reactions Pineapple Swelling was not ripe Adhesive Tape (Wendy* Rash Advair Diskus [Flut* Swelling Altace [Ramipril] Anaphylaxis Atrovent [Ipratropi* Rash Biaxin [Clarithromy* Mental Status Change Can take zithromax Cardizem [Diltiazem* Anaphylaxis Celexa [Citalopram * Muscle pain and fatigue Ciprofloxacin Rash, Other: See Comments Tendonitis in hands Codeine Rash Covera-Hs [Verapami* Confusion, constipation Hyzaar [Losartan-Hy* Rash Cramps, chills Keflex [Cephalexin] Itching rash Labetalol Rash Lamictal [Lamotrigi* Rash Latex Rash Occurs if latex on skin for long periods Lortab [Hydrocodone* Mental Status Change Methenamine Rash, Swelling, Itching, Anaphylaxis throat swelling Mobic [Meloxicam] Other: See Comments [place] like something squeezing heart Prozac [Fluoxetine * Shortness of Breath sob,chest pains Septra [Sulfamethox* GI Upset Seroquel [Quetiapin* Shortness of Breath Topamax [Topiramate] Other: See Comments gait instability and felt stupid Victoza [Liraglutid* Swelling throat swelling Zocor [Simvastatin] Swelling Zoloft [Sertraline * Intolerance Severe chest pain Already tried pravastatin and lovastatin and atorvastatin and had adverse effects with all Zonegran [Zonisamid* Shortness of Breath ACTIVE PROBLEM LIST Platelets Decreased ([facility]) - 08/22/2022 Unspecified Severe Protein-Calorie Malnutrition ([facility]) - 08/15/2022 Cortical Age-Related Cataract, Bilateral - 11/04/2018 Vitreous Floaters of Both Eyes - 11/03/2017 Punctate Keratitis of Both Eyes - 11/03/2017 Type 2 Diabetes Mellitus, With Long-Term Current Use of Insulin ([facility]) - 11/03/2017 Morbid Obesity With Bmi of 45.0-49.9, Adult ([facility]) - 04/21/2017 Impingement Syndrome of Left Shoulder - 05/13/2016 Carpal Tunnel Syndrome, Right - 01/22/2015 Carpal Tunnel Syndrome, Left - 01/22/2015 Josie (Obstructive Sleep Apnea) - 01/22/2015 Asthma - 01/22/2015 Gerd (Gastroesophageal Reflux Disease) - 01/22/2015 Type 2 Diabetes Mellitus With Diabetic Neuropathy, With Long-Term Current Use of Insulin ([facility]) - 12/07/2014 Statin Intolerance Diverticulosis of Colon (Without Mention of Hemorrhage) - 01/07/2012 Benign Neoplasm of Colon - 01/07/2012 Esophagitis, Unspecified - 01/07/2012 Unspecified Noninflammatory Disorder of Vulva and Perineum - 02/09/2008 Urgency of Urination - 02/09/2008 Postmenopausal Atrophic Vaginitis - 02/09/2008 Esophageal Reflux - 05/13/2006 Htn (Hypertension) - 02/09/2006 Carpal Tunnel Syndrome - 11/05/2005 Comment: Bilateral Irritable Bowel Syndrome - 11/05/2005 Unspecified Asthma(493.90) - 11/05/2005 Internal Hemorrhoids - 11/05/2005 Unspecified Sleep Apnea - 11/05/2005 Comment: Had CPAP mask, not using Fibromyalgia - 11/05/2005 Migraine Without Aura, Without Mention of Intractable Migraine Without Mention of Status Migrainosus - 11/05/2005 Edema - 11/05/2005 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 Cardiovascular: Negative. Neurological: Positive for tremors, facial asymmetry and weakness. Negative for dizziness, seizures, syncope, speech difficulty, light-headedness and headaches. OBJECTIVE BP 130/90 Pulse 99 Wt 231 lb (104.8kg) SpO2 98% Physical Exam Vitals and nursing note reviewed. Constitutional: General: She is awake. She is not in acute distress. Appearance: Normal appearance. She is well-developed and well-groomed. She is not ill-appearing, toxic-appearing or diaphoretic. HENT: Head: Normocephalic. Right Ear: External ear normal. Left Ear: External ear normal. Nose: Nose normal. Eyes: General: Vision grossly intact. No visual field deficit. Conjunctiva/sclera: Conjunctivae normal. Pupils: Pupils are equal, round, and reactive to light. Neck: Vascular: No JVD. Trachea: Trachea normal. Cardiovascular: Rate and Rhythm: Normal rate and regular rhythm. Pulses: Normal pulses. Heart sounds: Normal heart sounds. No murmur heard. Pulmonary: Effort: Pulmonary effort is normal. No accessory muscle usage, prolonged expiration or respiratory distress. Breath sounds: Normal breath sounds. Musculoskeletal: Cervical back: Neck supple. Skin: General: Skin is warm and dry. Capillary Refill: Capillary refill takes less than 2 seconds. Neurological: General: No focal deficit present. Mental Status: She is alert and oriented to person, place, and time. Mental status is at baseline. Cranial Nerves: Facial asymmetry (slight droop to right side of mouth) present. Sensory: Sensation is intact. Motor: Weakness and tremor present. Gait: Gait abnormal. Comments: Able to preform all CN 2-12 testing activities and only issues noted is the right sided slight mouth droop, with shoulder shrug the left is lower than right but has chronic left shoulder issues. Psychiatric: Attention and Perception: Attention and perception normal. Mood and Affect: Mood and affect normal. Speech: Speech normal. Behavior: Behavior normal. Behavior is cooperative. Thought Content: Thought content normal. Cognition and Memory: Cognition and memory normal. Judgment: Judgment normal. ASSESSMENT/PLAN: 1. Type 2 diabetes mellitus with diabetic neuropathy, with long-term current use of insulin ([facility]) - ICD9: 250.60, 357.2, V58.67, ICD10: E11.40, Z79.4 (primary diagnosis) - Improving control - Stop metformin - Blood glucose monitoring on a continuous glucose monitoring schedule recommended due to issues with her tremors limiting ability to check sugars - DEXCOM G7 SHEET METAL WORKER - DEXCOM G7 SENSOR DEVICE - ALBUMIN/CREAT RATIO RND UR 2. Diabetes mellitus with insulin therapy ([facility]) - ICD9: 250.00, V58.67, ICD10: E11.9, Z79.4 - DEXCOM G7 SHEET METAL WORKER - DEXCOM G7 SENSOR DEVICE 3. Fine motor impairment - ICD9: V49.89, ICD10: R29.818, R29.898 - WALKER ROLLATOR SEAT WITH 6 WHEELS - RED - DEXCOM G7 SHEET METAL WORKER - DEXCOM G7 SENSOR DEVICE 4. Generalized weakness - ICD9: 780.79, ICD10: R53.1 - WALKER ROLLATOR SEAT WITH 6 WHEELS - RED 5. TIA (transient ischemic attack) - ICD9: 435.9, ICD10: G45.9 Following with neuro, scheduled for MRI 6. Tremor, essential - ICD9: 333.1, ICD10: G25.0 - WALKER ROLLATOR SEAT WITH 6 WHEELS - RED - DEXCOM G7 SHEET METAL WORKER - DEXCOM G7 SENSOR DEVICE 7. Unspecified severe protein-calorie malnutrition ([facility]CC) - ICD9: 262, ICD10: E43 Stable. - WALKER ROLLATOR SEAT WITH 6 WHEELS - RED - COMP METABOLIC PANEL 8. Class 3 severe obesity due to excess calories with serious comorbidity and body mass index (BMI) of 40.0 to 44.9 in adult ([facility]CC) - ICD9: 278.01, V85.41, ICD10: E66.01, Z68.41 - WALKER ROLLATOR SEAT WITH 6 WHEELS - RED 9. Platelets decreased ([facility]) - ICD9: 287.5, ICD10: D69.6 Repeat labs to recheck platelet levels, no easy bleeding or bruising. - CBC + DIFF 10. Primary hypertension - ICD9: 401.9, ICD10: I10 - Controlled - Continue current medications - Recommend home blood pressure monitoring, to bring results to next visit - Encouraged sodium restriction, DASH or Mediterranean diet - Recommend regular aerobic exercise 11. Mixed hyperlipidemia - ICD9: 272.2, ICD10: E78.2 - Controlled - Continue current medications - Counseled on healthy diet and regular exercise - OMEGA-3 FATTY ACIDS 1,000 MG CAPSULE Medical Decision Making: Problems: Moderate: 2+ stable chronic illnesses Data: Unique test result(s) reviewed: 3+ Unique test(s) ordered: 3+ Medical Decision Making Level: 4 - Moderate Portions of this note have been entered by ancillary staff. I have reviewed and when necessary edited, so that they are an adequate record of my encounter with this patient Please note that parts of this document were created using voice recognition software and therefore may contain grammatical errors. Patient verbalizes understanding of instructions from today's visit and in agreement with treatment plan. Questions answered. Agrees to call the office if questions, concerns of issues with acute symptoms not improving or if they worsen. See diagnoses and orders for additional plan(s). Allergies and medications were reviewed, list was updated, and refills given if needed. Past medical, surgical, social, and family history reviewed and updated as appropriate. Encouraged proper diet & exercise as well as compliance with taking medications. Age-appropriate health preventative measures were discussed. Return if symptoms worsen or fail to improve, for Keep next scheduled appointment.. NATE Epps documented in this encounter [facility] 08-20-2022 Miscellaneous Notes Fax received from [employer] to clarify medication directions for Carbidopa- Levodopa. Your last office note says take 1.5 mg PO TID and the prescription says take 1.5 tablets by mouth three times daily. Take 1.5 tablets at 7am, 1pm, 7pm. I pended the order for you if you could resend it! Thank you! Helga Preez LPN documented in this encounter [facility] 08-15-2022 Note HNO ID: [id number] Author: RT Sona(R) Service: ? Author Type: Director Of Radio Services Type: Progress Notes Filed: 08/15/2022 9:04 AM Note Text: Radiology Service Progress Note PATIENT NAME: Tiffanie Devlin DATE OF SERVICE: August 15, 2022 TIME: 8:48 AM PATIENT IDENTITY VERIFICATION COMPLETED USING TWO (2) IDENTIFIERS: Name and Date of confirmed by patient verbally. FALL SCREENING: Has the patient had 2 falls in the last year or 1 fall with injury or currently using an Ambulatory Assistive Device (Walker, Cane, Wheelchair, Crutches, etc.)? Yes, Patient High Risk for Falls What interventions were put in place to prevent falls during this visit? Offered Assistance with Transfers/Clothing, Instructed Patient to Remain Seated (Not on Exam Table) Until Exam, and Increased Observations by Caregivers PATIENT GENDER DATA: Female. status: : No status: NO. PATIENT RELEVANT IMPLANT DATA REVIEWED: Yes RADIOLOGY DEPARTMENT: General X-ray: Exam(s) Completed: Lower Extremity X-Ray(s): Foot, Right PERIPHERAL IV DATA: Not applicable SIGNED BY: RT Sona(R) August 15, 2022 8:48 AM [facility] 08-15-2022 Note HNO ID: [id number] Author: Marianela Shearer Service: ? Author Type: Physician Type: Progress Notes Filed: 08/15/2022 9:32 AM Note Text: Chief Complaint: This 67 year old female who presents with chief complaint:painful callus of right 2nd toe HPI Patient presents to clinic for evaluation of right 2nd toe She has callus to right 2nd toe. The callus has been present for nearly one year. She complains of pain with ambulation She has her grand daughter reduce with scissors PAIN EVALUATION No data found in the last 1 encounters. 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 ASTHMA UNSPECIFIED 11/05/2005 Benign neoplasm of colon BIPOLAR - SINGLE MANIC EPISODE NOS 11/05/2005 Bipolar affective disorder (HCC) 09/12/2009 depression at this point; no recent manic episodes; noted flare up ofr auditory hallucinations Bipolar I disorder, single manic episode (HCC) 11/05/2005 Carpal tunnel syndrome 11/05/2005 Bilateral DEPRESSIVE DISORDER NEC 11/05/2005 Diabetes mellitus type 2, insulin dependent (HCC) DIABETES MELLITUS TYPE II-UNCOMPL 08/30/2000 Diverticulosis of colon (without mention of hemorrhage) Edema 11/05/2005 Esophageal reflux 05/13/2006 Esophagitis, unspecified EXTRAPYRAMIDAL DIS NEC 11/05/2005 GENERAL OSTEOARTHROSIS 11/05/2005 HYPERLIPIDEMIA NEC/NOS 11/05/2005 HYPERTENSION NOS 02/09/2006 IRRITABLE COLON 11/05/2005 Morbid Obesity MYALGIA AND MYOSITIS NOS 11/05/2005 NEUROPATHY IN DIABETES 11/05/2005 SLEEP APNEA NOS 11/05/2005 Had CPAP mask, not using Statin intolerance Current Outpatient Medications Medication Sig carbidopa-levodopa (SINEMET 25-100) 25-100 mg per tablet Take 1.5 tablets by mouth three times daily. Take one tablet at 7am, 1pm, and 7pm. amLODIPine (NORVASC) 10 mg tablet Take 1 tablet by mouth once daily. cholecalciferol (VITAMIN D3) 50 mcg (2,000 unit) tablet Take 1 tablet by mouth once daily. cloNIDine HCl (CATAPRES) 0.3 mg tablet Take 1 tablet by mouth twice daily. diclofenac, EC, (VOLTAREN) 75 mg EC tablet Take 1 tablet by mouth twice daily. For pain/inflammation. Take with food. insulin degludec (TRESIBA FLEXTOUCH U-200) 200 unit/mL (3 mL) injection Inject 56 Units subcutaneously daily at bedtime. (Patient taking differently: Inject 60 Units subcutaneously every morning.) mecobalamin, vitamin B12, (B12 ACTIVE) 1,000 mcg chew Take 1 tablet by mouth once daily. metFORMIN (GLUCOPHAGE) 1,000 mg tablet Take 1 tablet by mouth twice daily. oxybutynin ER (DITROPAN XL) 15 mg 24 hr Extended Rel Tab Take 1 tablet by mouth twice daily. phytonadione, vit K1, (VITAMIN K) 100 mcg tablet Take 100 mcg by mouth once daily. omega-3 fatty acids (FISH OIL MINI 1290 MG SOFTGEL) Take 2,000 mg by mouth once daily. blood sugar diagnostic (BLOOD GLUCOSE TEST) test strip Test blood sugar(s) 3 times daily and as needed for symptoms of high and low sugars. Dx: Other DM Code E11.40 Insulin: Yes Lancets lancets Check blood sugar 3 times daily and as needed for symptoms of high or low sugars DX: E11.40 Insulin:Yes. Please give lancet pen if does not come with the meter Blood-Glucose Meter monitoring kit Glucose Meter of Choice - Kit - As directed to test blood sugar up to 3 times daily. Dx: Other DM Code E11.40. Insulin [place], Disposable, (BD INSULIN PEN NEEDLE UF) 29 gauge x 1/2 ndle USE TO INJECT TWICE DAILY Aspirin 81 mg tab Take 1 tablet by mouth once daily. Take with food. (Patient taking differently: Take 81 mg by mouth twice daily. Take with food.) Methenamine Hippurate (HIPREX) 1 gram tablet Take 1 tablet by mouth twice daily with meals. (Patient not taking: No sig reported) omega-3 fatty acids 1,000 mg cap Take 2 capsules by mouth once daily. (Patient not taking: No sig reported) No current facility-administered medications for this visit. ALLERGIES Allergen Reactions Pineapple Swelling was not ripe Adhesive Tape (Wendy* Rash Advair Diskus [Flut* Swelling Altace [Ramipril] Anaphylaxis Atrovent [Ipratropi* Rash Biaxin [Clarithromy* Mental Status Change Can take zithromax Cardizem [Diltiazem* Anaphylaxis Celexa [Citalopram * Muscle pain and fatigue Ciprofloxacin Rash, Other: See Comments Tendonitis in hands Codeine Rash Covera-Hs [Verapami* Confusion, constipation Hyzaar [Losartan-Hy* Rash Cramps, chills Keflex [Cephalexin] Itching rash Labetalol Rash Lamictal [Lamotrigi* Rash Latex Rash Occurs if latex on skin for long periods Lortab [Hydrocodone* Mental Status Change Mobic [Meloxicam] Other: See Comments [place] like something squeezing heart Prozac [Fluoxetine * Shortness of Breath sob,chest pains Septra [Sulfamethox* GI Upset Seroquel [Quetiapin* Short (more content not included)... [facility] 08-15-2022 Note HNO ID: [id number] Author: Seema Garcia RN Service: ? Author Type: ? Type: Progress Notes Filed: 08/15/2022 9:32 AM Note Text: Patient presents with: Right 2nd Toe - Established PatientNicki [facility] 08-15-2022 History of Presen t illness Narrative Chief Complaint: This 67 year old female who presents with chief complaint:painful callus of right 2nd toe HPI Patient presents to clinic for evaluation of right 2nd toe She has callus to right 2nd toe. The callus has been present for nearly one year. She complains of pain with ambulation She has her grand daughter reduce with scissors PAIN EVALUATION No data found in the last 1 encounters. 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 ASTHMA UNSPECIFIED 11/05/2005 Benign neoplasm of colon BIPOLAR - SINGLE MANIC EPISODE NOS 11/05/2005 Bipolar affective disorder (HCC) 09/12/2009 depression at this point; no recent manic episodes; noted flare up ofr auditory hallucinations Bipolar I disorder, single manic episode (HCC) 11/05/2005 Carpal tunnel syndrome 11/05/2005 Bilateral DEPRESSIVE DISORDER NEC 11/05/2005 Diabetes mellitus type 2, insulin dependent (HCC) DIABETES MELLITUS TYPE II-UNCOMPL 08/30/2000 Diverticulosis of colon (without mention of hemorrhage) Edema 11/05/2005 Esophageal reflux 05/13/2006 Esophagitis, unspecified EXTRAPYRAMIDAL DIS NEC 11/05/2005 GENERAL OSTEOARTHROSIS 11/05/2005 HYPERLIPIDEMIA NEC/NOS 11/05/2005 HYPERTENSION NOS 02/09/2006 IRRITABLE COLON 11/05/2005 Morbid Obesity MYALGIA AND MYOSITIS NOS 11/05/2005 NEUROPATHY IN DIABETES 11/05/2005 SLEEP APNEA NOS 11/05/2005 Had CPAP mask, not using Statin intolerance Current Outpatient Medications Medication Sig carbidopa-levodopa (SINEMET 25-100) 25-100 mg per tablet Take 1.5 tablets by mouth three times daily. Take one tablet at 7am, 1pm, and 7pm. amLODIPine (NORVASC) 10 mg tablet Take 1 tablet by mouth once daily. cholecalciferol (VITAMIN D3) 50 mcg (2,000 unit) tablet Take 1 tablet by mouth once daily. cloNIDine HCl (CATAPRES) 0.3 mg tablet Take 1 tablet by mouth twice daily. diclofenac, EC, (VOLTAREN) 75 mg EC tablet Take 1 tablet by mouth twice daily. For pain/inflammation. Take with food. insulin degludec (TRESIBA FLEXTOUCH U-200) 200 unit/mL (3 mL) injection Inject 56 Units subcutaneously daily at bedtime. (Patient taking differently: Inject 60 Units subcutaneously every morning.) mecobalamin, vitamin B12, (B12 ACTIVE) 1,000 mcg chew Take 1 tablet by mouth once daily. metFORMIN (GLUCOPHAGE) 1,000 mg tablet Take 1 tablet by mouth twice daily. oxybutynin ER (DITROPAN XL) 15 mg 24 hr Extended Rel Tab Take 1 tablet by mouth twice daily. phytonadione, vit K1, (VITAMIN K) 100 mcg tablet Take 100 mcg by mouth once daily. omega-3 fatty acids (FISH OIL MINI 1290 MG SOFTGEL) Take 2,000 mg by mouth once daily. blood sugar diagnostic (BLOOD GLUCOSE TEST) test strip Test blood sugar(s) 3 times daily and as needed for symptoms of high and low sugars. Dx: Other DM Code E11.40 Insulin: Yes Lancets lancets Check blood sugar 3 times daily and as needed for symptoms of high or low sugars DX: E11.40 Insulin:Yes. Please give lancet pen if does not come with the meter Blood-Glucose Meter monitoring kit Glucose Meter of Choice - Kit - As directed to test blood sugar up to 3 times daily. Dx: Other DM Code E11.40. Insulin [place], Disposable, (BD INSULIN PEN NEEDLE UF) 29 gauge x 1/2 ndle USE TO INJECT TWICE DAILY Aspirin 81 mg tab Take 1 tablet by mouth once daily. Take with food. (Patient taking differently: Take 81 mg by mouth twice daily. Take with food.) Methenamine Hippurate (HIPREX) 1 gram tablet Take 1 tablet by mouth twice daily with meals. (Patient not taking: No sig reported) omega-3 fatty acids 1,000 mg cap Take 2 capsules by mouth once daily. (Patient not taking: No sig reported) No current facility-administered medications for this visit. ALLERGIES Allergen Reactions Pineapple Swelling was not ripe Adhesive Tape (Wendy* Rash Advair Diskus [Flut* Swelling Altace [Ramipril] Anaphylaxis Atrovent [Ipratropi* Rash Biaxin [Clarithromy* Mental Status Change Can take zithromax Cardizem [Diltiazem* Anaphylaxis Celexa [Citalopram * Muscle pain and fatigue Ciprofloxacin Rash, Other: See Comments Tendonitis in hands Codeine Rash Covera-Hs [Verapami* Confusion, constipation Hyzaar [Losartan-Hy* Rash Cramps, chills Keflex [Cephalexin] Itching rash Labetalol Rash Lamictal [Lamotrigi* Rash Latex Rash Occurs if latex on skin for long periods Lortab [Hydrocodone* Mental Status Change Mobic [Meloxicam] Other: See Comments [place] like something squeezing heart Prozac [Fluoxetine * Shortness of Breath sob,chest pains Septra [Sulfamethox* GI Upset Seroquel [Quetiapin* Shortness of Breath Topamax [Topiramate] Other: See Comments gait instability and felt stupid Victoza [Liraglutid* Swelling throat swelling Zocor [Simvastatin] Swelling Zoloft [Sertraline * Intolerance Severe chest pain Already tried pravastatin and lovastatin and atorvastatin and had adverse effects with all Zonegran [Zonisamid* Shortness of Breath PAST SURGICAL HISTORY Procedure Laterality Date ANESTHESIA VAGINAL HYSTERECTOMY INCL BIOPSY 2004 has one ovary left COLONOSCOPY FLX DX W/COLLJ SPEC WHEN PFRMD 2001 Colonoscopy COLONOSCOPY FLX DX W/COLLJ SPEC WHEN PFRMD 07/21/03 Colonoscopy COLONOSCOPY FLX DX W/COLLJ SPEC WHEN PFRMD 01/06/12 Colonoscopy repeat 5 years ESOPHAGOGASTRODUODENOSCOPY TRANSORAL DIAGNOSTIC 2000 EGD ESOPHAGOGASTRODUODENOSCOPY TRANSORAL DIAGNOSTIC 01/07/12 EGD LAPAROSCOPY SURG CHOLECYSTECTOMY Cholecystectomy, lap LEFT HEART CATH,PERCUTANEOUS Cardiac cath, L heart MASTOIDECTOMY,COMPLETE 1968 osteomyelitis involving mastoid , left NEUROPLASTY &/TRANSPOS MEDIAN NRV CARPAL TUNNE Right 01/31/2015 Carpal tunnel decomp RIGHT HEART CATHETERIZATION Cardiac cath, R heart SLING OPER STRES INCONTINENCE 1994 FAMILY HISTORY Problem Relation Age of Onset Diabetes Father Hypertension Father Essential Tremor Father Heart Mother Valve replacements Hypertension Mother Rheumatic Fever Mother Tremor Brother Tremor Sister Tremor Paternal Grandfather Diabetes Son No Ocular Disease No Family History Coronary Artery Disease No Family History Thyroid No Family History Hyperlipidemia No Family History Blood Disease No Family History Blood Clots No Family History Factor 5 Leiden No Family History Stroke No Family History Systemic Lupus Erythematosus No Family History Multiple Sclerosis No Family History Alzheimer's Disease No Family History Dementia No Family History Parkinson s Disease No Family History Aneurysm No Family History Macular Degen No Family History Social History Tobacco Use Smoking status: Never Smokeless tobacco: Never Substance Use Topics Alcohol use: No Drug use: No REVIEW OF SYSTEMS GENERAL: Negative for Malaise, significant weight loss, fever RESPIRATORY: Negative for cough, wheezing and shortness of breath CARDIOVASCULAR: Negative for chest pain, leg swelling and palpitations GI: Negative for abdominal discomfort, blood in stools or black stools and change in bowel habits : Negative for dysuria, frequency and incontinence MUSCULOSKELETAL: Negative for joint pain or swelling, back pain, and muscle pain. SKIN: Negative for lesions, rash, and itching. HEMATOLOGY/LYMPHOLOGY Negative for prolonged bleeding, bruising easily, and swollen nodes. ENDOCRINE: Negative for cold or heat intolerance, polyuria, polydipsia and goiter. NEURO: negative Physical Exam: Constitutional: Pt is a well developed 67 year old female who is alert, oriented and cooperative Eyes: Following during examination. No redness or drainage. Respiratory: RR normal and nonlabored. Even breathing. No evidence of distress or shortness of breath. Psychology: Patient is engaged during conversation. Normal affect and mood. Does not appear depressed or anxious during encounter. Vascular: Dorsalis pedis and posterior tibial pulses palpable as b/l Capillary Fill time < 5 seconds to digits 1-5 b/l Skin temperature warm to warm proximal to distal b/l Hair growth present to digits Neurological: intact light touch/epicritic sensation b/l intact protective sensation no significant neurological deficits Dermatological: Nails 1-5 b/l appear normal. Webspaces clean and dry 1-4 b/l. Skin appears well hydrated and supple. good color, texture, turgor. No open lesions present. Callus present to right 2nd toe plantar aspect Musculoskeletal/Orthopaedic: Patient has pain to palpation of plantar aspect of right 2nd toe Foot type is neutral structurally AJ ROM is full with knee extended and flexed 1st MPJ is full when loaded and no pain or crepitus are noted with ROM. MTJ, STJ are full and free of pain and crepitus. +5/5 muscle strength dorsiflexion, plantarflexion, inversion, eversion b/l Radiographs: ordered ASSESSMENT: (E11.40, Z79.4) Controlled type 2 diabetes mellitus with diabetic neuropathy, with long-term current use of insulin ([facility]) (primary encounter diagnosis) (L84) Callus (M79.89) Soft tissue mass PLAN: Diabetic foot exam performed. Discussed callus of right 2nd toe. Callus was reduced today with 15 blade. No underlying ulceration. Discussed etiology of callus. She has no hammertoe. I have concerns for deep soft-tisseu mass such as fibroma of plantar 2nd toe proximal phalanx that would be possibly placing pressure on skin causing callus. I want to order xrays and mri of right foot to evaluate for possible underlying fibroma or other soft-tissue mass Marianela Shearer DPM Podiatry [address] [facility] [id number] Dept: [phone] Dept Patient presents with: Right 2nd Toe - Established Patient, Nicki documented in this encounter [facility] 08-14-2022 Note HNO ID: [id number] Author: Faith Raygoza APRN.ASSEMBLING INSPECTOR Service: ? Author Type: Nurse Practitioner Type: Progress Notes Filed: 08/15/2022 7:32 AM Note Text: [facility] [place] Follow-up Visit Follow-up note August 05, 2022 HPI: Ms. Devlin presents today for a follow-up visit. Per her previous visit on 04/10/22: R25.1 Tremor (primary encounter diagnosis) Comment: Patient previously seen for tremor in general neurology office and prior to that was seen by movement disorder clinic. Hx and exam suggestive of essential tremor with superimposed functional tremor. However, some exam findings still suggestive of Parkinsonism. Past medications have included Topamax, Zonegran, Primidone, and Keppra. Unable to take benzos as well as beta blockers. At time of previous appointment she was started on Sinemet 25-100mg TID. Today she reports significant improvement in symptoms including ability to ambulate, stiffness, and tremor. On exam, gait improved though tremor notable in hands and mouth. She reports that she is taking medication at 7am, 3pm, and 10pm. Time of appointment today is at 2pm and she reports it is almost time to take dose of medication. Discussed adjusting schedule so that medication is taken earlier in the day preventing periods of exacerbation of symptoms. She will adjust schedule to 7am, 1pm, and 7pm. If no improvement of breakthrough symptoms may consider increasing dose of medication verses return to movement disorder clinic. Since her previous appointment she will have spells where her body will stiffen. Feels like when you yawn and stretch. Will feel stiff and tremors will worse. Yesterday happened four times and then once this morning. Fully conscious when this happens. Happens mostly when standing up. Has rarely happened when sitting and never lying down. Tremors to both arms. L>R. Feels like she has tremors in legs as well. Sometimes feels like eyes twitch. Feels she is doing better when walking. Wearing a foam patch on her R foot. Foot not giving out. Not afraid of falling. Sometimes has difficulty moving her legs when she first stands up. Difficulty with fine motor coordination. Cannot text or answer phone. Difficulty picking small things up or utensils. No speech changes. She does report dry mouth. Not acting out dreams/yelling out. Will have vivid dreams that are not real. Can see things moving in peripheral vision; dark shadow or white shape. Has worsened as of late. Tremors still worse when cold, nervous. Taking Sinemet between 6-7am, 1-2pm, and 6-7pm. Appt today is at 2pm and she has not taken the medication. Denies other new symptoms. States double vision is chronic. No new weakness, n/t. States she feels stronger; chopped potatoes and cabbage last night. Has been taking B1 which she feels has helped her. Hasn't been as tired. States she can now play word puzzles. Patient previously seen for tremor in general neurology office and prior to that was seen by movement disorder clinic. Hx and exam suggestive of essential tremor with superimposed functional tremor. However, some exam findings still suggestive of Parkinsonism. Past medications have included Topamax, Zonegran, Primidone, and Keppra. Unable to take benzos as well as beta blockers. Instead, she was started on Sinemet and is currently taking 25-100mg TID. Symptoms initially improved with use of medication, however, at time of appointment today she reports worsening of tremor and stiffness. She is currently taking her medication at 7am, 2pm, and 7pm. 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 Exam notable for tremor to BUE and intermittently to jaw. Shuffling with ambulation (though stable and not using cane) and altered THAI/tapping. Uncertain if exam findings are more notable today than time of last appointment secondary to timing of medication. Nevertheless, given report of worsening of sx at home as well, feel that return to movement disorder clinic for updated assessment/evaluation would be beneficial. New consult has been placed and she will schedule after OV today. In interim will increase Sinemet to 1.5 tablets TID to determine if there is any further benefit from medication. 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 [facility] 08-14-2022 History of Presen t illness Narrative Images from the original note were not included. [facility] [place] Follow-up Visit Follow-up note August 05, 2022 HPI: Ms. Devlin presents today for a follow-up visit. Per her previous visit on 04/10/22: R25.1 Tremor (primary encounter diagnosis) Comment: Patient previously seen for tremor in general neurology office and prior to that was seen by movement disorder clinic. Hx and exam suggestive of essential tremor with superimposed functional tremor. However, some exam findings still suggestive of Parkinsonism. Past medications have included Topamax, Zonegran, Primidone, and Keppra. Unable to take benzos as well as beta blockers. At time of previous appointment she was started on Sinemet 25-100mg TID. Today she reports significant improvement in symptoms including ability to ambulate, stiffness, and tremor. On exam, gait improved though tremor notable in hands and mouth. She reports that she is taking medication at 7am, 3pm, and 10pm. Time of appointment today is at 2pm and she reports it is almost time to take dose of medication. Discussed adjusting schedule so that medication is taken earlier in the day preventing periods of exacerbation of symptoms. She will adjust schedule to 7am, 1pm, and 7pm. If no improvement of breakthrough symptoms may consider increasing dose of medication verses return to movement disorder clinic. Since her previous appointment she will have spells where her body will stiffen. Feels like when you yawn and stretch. Will feel stiff and tremors will worse. Yesterday happened four times and then once this morning. Fully conscious when this happens. Happens mostly when standing up. Has rarely happened when sitting and never lying down. Tremors to both arms. L>R. Feels like she has tremors in legs as well. Sometimes feels like eyes twitch. Feels she is doing better when walking. Wearing a foam patch on her R foot. Foot not giving out. Not afraid of falling. Sometimes has difficulty moving her legs when she first stands up. Difficulty with fine motor coordination. Cannot text or answer phone. Difficulty picking small things up or utensils. No speech changes. She does report dry mouth. Not acting out dreams/yelling out. Will have vivid dreams that are not real. Can see things moving in peripheral vision; dark shadow or white shape. Has worsened as of late. Tremors still worse when cold, nervous. Taking Sinemet between 6-7am, 1-2pm, and 6-7pm. Appt today is at 2pm and she has not taken the medication. Denies other new symptoms. States double vision is chronic. No new weakness, n/t. States she feels stronger; chopped potatoes and cabbage last night. Has been taking B1 which she feels has helped her. Hasn't been as tired. States she can now play word puzzles. Patient previously seen for tremor in general neurology office and prior to that was seen by movement disorder clinic. Hx and exam suggestive of essential tremor with superimposed functional tremor. However, some exam findings still suggestive of Parkinsonism. Past medications have included Topamax, Zonegran, Primidone, and Keppra. Unable to take benzos as well as beta blockers. Instead, she was started on Sinemet and is currently taking 25-100mg TID. Symptoms initially improved with use of medication, however, at time of appointment today she reports worsening of tremor and stiffness. She is currently taking her medication at 7am, 2pm, and 7pm. 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 Exam notable for tremor to BUE and intermittently to jaw. Shuffling with ambulation (though stable and not using cane) and altered THAI/tapping. Uncertain if exam findings are more notable today than time of last appointment secondary to timing of medication. Nevertheless, given report of worsening of sx at home as well, feel that return to movement disorder clinic for updated assessment/evaluation would be beneficial. New consult has been placed and she will schedule after OV today. In interim will increase Sinemet to 1.5 tablets TID to determine if there is any further benefit from medication. 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 ASTHMA UNSPECIFIED 11/05/2005 Benign neoplasm of colon BIPOLAR - SINGLE MANIC EPISODE NOS 11/05/2005 Bipolar affective disorder ([facility]) 09/12/2009 depression at this point; no recent manic episodes; noted flare up ofr auditory hallucinations Bipolar I disorder, single manic episode (HCC) 11/05/2005 Carpal tunnel syndrome 11/05/2005 Bilateral DEPRESSIVE DISORDER NEC 11/05/2005 Diabetes mellitus type 2, insulin dependent ([facility]) DIABETES MELLITUS TYPE II-UNCOMPL 08/30/2000 Diverticulosis of colon (without mention of hemorrhage) Edema 11/05/2005 Esophageal reflux 05/13/2006 Esophagitis, unspecified EXTRAPYRAMIDAL DIS NEC 11/05/2005 GENERAL OSTEOARTHROSIS 11/05/2005 HYPERLIPIDEMIA NEC/NOS 11/05/2005 HYPERTENSION NOS 02/09/2006 IRRITABLE COLON 11/05/2005 Morbid Obesity MYALGIA AND MYOSITIS NOS 11/05/2005 NEUROPATHY IN DIABETES 11/05/2005 SLEEP APNEA NOS 11/05/2005 Had CPAP mask, not using Statin intolerance PAST SURGICAL HISTORY Procedure Laterality Date ANESTHESIA VAGINAL HYSTERECTOMY INCL BIOPSY 2004 has one ovary left COLONOSCOPY FLX DX W/COLLJ SPEC WHEN PFRMD 2001 Colonoscopy COLONOSCOPY FLX DX W/COLLJ SPEC WHEN PFRMD 07/21/03 Colonoscopy COLONOSCOPY FLX DX W/COLLJ SPEC WHEN PFRMD 01/06/12 Colonoscopy repeat 5 years ESOPHAGOGASTRODUODENOSCOPY TRANSORAL DIAGNOSTIC 2000 EGD ESOPHAGOGASTRODUODENOSCOPY TRANSORAL DIAGNOSTIC 01/07/12 EGD LAPAROSCOPY SURG CHOLECYSTECTOMY Cholecystectomy, lap LEFT HEART CATH,PERCUTANEOUS Cardiac cath, L heart MASTOIDECTOMY,COMPLETE 1968 osteomyelitis involving mastoid , left NEUROPLASTY &/TRANSPOS MEDIAN NRV CARPAL TUNNE Right 01/31/2015 Carpal tunnel decomp RIGHT HEART CATHETERIZATION Cardiac cath, R heart SLING OPER STRES INCONTINENCE 1994 Current Outpatient Medications on File Prior to Visit Medication Sig amLODIPine (NORVASC) 10 mg tablet Take 1 tablet by mouth once daily. cholecalciferol (VITAMIN D3) 50 mcg (2,000 unit) tablet Take 1 tablet by mouth once daily. cloNIDine HCl (CATAPRES) 0.3 mg tablet Take 1 tablet by mouth twice daily. diclofenac, EC, (VOLTAREN) 75 mg EC tablet Take 1 tablet by mouth twice daily. For pain/inflammation. Take with food. insulin degludec (TRESIBA FLEXTOUCH U-200) 200 unit/mL (3 mL) injection Inject 56 Units subcutaneously daily at bedtime. mecobalamin, vitamin B12, (B12 ACTIVE) 1,000 mcg chew Take 1 tablet by mouth once daily. metFORMIN (GLUCOPHAGE) 1,000 mg tablet Take 1 tablet by mouth twice daily. Methenamine Hippurate (HIPREX) 1 gram tablet Take 1 tablet by mouth twice daily with meals. oxybutynin ER (DITROPAN XL) 15 mg 24 hr Extended Rel Tab Take 1 tablet by mouth twice daily. carbidopa-levodopa (SINEMET 25-100) 25-100 mg per tablet Take 1 tablet by mouth three times daily. Take one tablet at 7am, 1pm, and 7pm. phytonadione, vit K1, (VITAMIN K) 100 mcg tablet Take 100 mcg by mouth once daily. omega-3 fatty acids (FISH OIL MINI 1290 MG SOFTGEL) Take 2,000 mg by mouth once daily. omega-3 fatty acids 1,000 mg cap Take 2 capsules by mouth once daily. (Patient not taking: No sig reported) blood sugar diagnostic (BLOOD GLUCOSE TEST) test strip Test blood sugar(s) 3 times daily and as needed for symptoms of high and low sugars. Dx: Other DM Code E11.40 Insulin: Yes Lancets lancets Check blood sugar 3 times daily and as needed for symptoms of high or low sugars DX: E11.40 Insulin:Yes. Please give lancet pen if does not come with the meter Blood-Glucose Meter monitoring kit Glucose Meter of Choice - Kit - As directed to test blood sugar up to 3 times daily. Dx: Other DM Code E11.40. Insulin [place], Disposable, (BD INSULIN PEN NEEDLE UF) 29 gauge x 1/2 ndle USE TO INJECT TWICE DAILY Aspirin 81 mg tab Take 1 tablet by mouth once daily. Take with food. (Patient taking differently: Take 81 mg by mouth twice daily. Take with food.) No current facility-administered medications on file prior to visit. Social History Tobacco Use Smoking status: Never Smokeless tobacco: Never Substance Use Topics Alcohol use: No Drug use: No ALLERGIES Allergen Reactions Pineapple Swelling was not ripe Adhesive Tape (Wendy* Rash Advair Diskus [Flut* Swelling Altace [Ramipril] Anaphylaxis Atrovent [Ipratropi* Rash Biaxin [Clarithromy* Mental Status Change Can take zithromax Cardizem [Diltiazem* Anaphylaxis Celexa [Citalopram * Muscle pain and fatigue Ciprofloxacin Rash, Other: See Comments Tendonitis in hands Codeine Rash Covera-Hs [Verapami* Confusion, constipation Hyzaar [Losartan-Hy* Rash Cramps, chills Keflex [Cephalexin] Itching rash Labetalol Rash Lamictal [Lamotrigi* Rash Latex Rash Occurs if latex on skin for long periods Lortab [Hydrocodone* Mental Status Change Mobic [Meloxicam] Other: See Comments [place] like something squeezing heart Prozac [Fluoxetine * Shortness of Breath sob,chest pains Septra [Sulfamethox* GI Upset Seroquel [Quetiapin* Shortness of Breath Topamax [Topiramate] Other: See Comments gait instability and felt stupid Victoza [Liraglutid* Swelling throat swelling Zocor [Simvastatin] Swelling Zoloft [Sertraline * Intolerance Severe chest pain Already tried pravastatin and lovastatin and atorvastatin and had adverse effects with all Zonegran [Zonisamid* Shortness of Breath Review of Systems: Cardiopulmonary: denies chest pain, palpitations Respiratory: denies shortness of breath GI/: denies recent nausea, vomiting, diarrhea, constipation, + incontinence (on medication) Musculoskeletal: denies weakness Back/spine: denies low back or + cervical pains Neuro: denies + tremors, loss of feeling, dizziness, seizure, blackout, paresthesia, facial paresthesia, facial weakness, difficulty in speech, slurring of words, dysarthria, dysphagia, headache, vision changes Physical Exam: 08/14/22 1346 BP: 192/66 Pulse: 92 Resp: 18 Temp: 36.6 C (97.8 F) TempSrc: Temporal SpO2: 99% Weight: 102.3 kg (225 lb 9.6 oz) Patient is alert and in no distress. Dress is appropriate. Mood is appropriate Breathing appears regular and unstressed Neurologic examination: Cognitively intact. No deficits. No formal MMSE performed. CN: Pupils equal and reactive to light, extraocular movements intact with no nystagmus, R facial weakness noted to eye and mouth, hearing intact bilaterally, symmetric evaluation of the soft palate, tongue is midline with no deviation, shoulder shrug is symmetric. Motor exam shows 5/5 strength symmetric through the upper and lower extremities in all groups tested. Sensory intact to light touch in all extremities. Vibratory sensation is intact and symmetric all extremities. Decreased sensation to temperature in RLE. Deep tendon reflexes are symmetric at the biceps, brachioradialis, and decreased at patella, and achilles bilaterally. Coordination: No dysmetria on finger to nose. No drift seen. THAI of pronation and supination, finger and hand tapping slow bilaterally. Toe tapping decreased bilaterally. No rigidity, cog wheeling. Tremor at rest in BUE L>R with occasional spread to mouth. Occasional cessation of tremor when completing other tasks, though only noted in RUE at this OV. Good arm swing symmetric. Able to rise from chair without using arms. + retropulsion. Shuffling gait. Not using cane today. Stable gait. Five step turn. Tremor on ambulation. Labs/studies: Component Latest Ref Rng & Units 02/14/2022 Protein, Total 6.3 - 8.0 g/dL 6.6 Albumin 3.9 - 4.9 g/dL 3.7 (L) Calcium 8.5 - 10.2 mg/dL 9.5 Bilirubin, Total 0.2 - 1.3 mg/dL 0.3 Alkaline Phosphatase 34 - 123 U/L 96 AST 13 - 35 U/L 18 ALT 7 - 38 U/L 26 Glucose 74 - 99 mg/dL 103 (H) BUN 7 - 21 mg/dL 24 (H) Creatinine 0.58 - 0.96 mg/dL 0.75 Sodium 136 - 144 mmol/L 140 Potassium 3.7 - 5.1 mmol/L 4.4 Chloride 97 - 105 mmol/L 104 CO2 22 - 30 mmol/L 25 Anion Gap 9 - 18 mmol/L 11 eGFR >=60 mL/min/1.73m 89 WBC 3.70 - 11.00 k/uL 12.67 (H) RBC 3.90 - 5.20 m/uL 4.60 Hemoglobin 11.5 - 15.5 g/dL 11.8 Hematocrit 36.0 - 46.0 % 38.3 MCV 80.0 - 100.0 fL 83.3 MCH 26.0 - 34.0 pg 25.7 (L) MCHC 30.5 - 36.0 g/dL 30.8 RDW-CV 11.5 - 15.0 % 15.1 (H) Platelet Count 150 - 400 k/uL 222 MPV 9.0 - 12.7 fL 12.4 Absolute nRBC <0.01 k/uL <0.01 Hemoglobin A1C 4.3 - 5.6 % 6.0 (H) Estimated Average Glucose mg/dL 126 Assessment/Plan: R25.1 Tremor (primary encounter diagnosis) Comment: Patient previously seen for tremor in general neurology office and prior to that was seen by movement disorder clinic. Hx and exam suggestive of essential tremor with superimposed functional tremor. However, some exam findings still suggestive of Parkinsonism. Past medications have included Topamax, Zonegran, Primidone, and Keppra. Unable to take benzos as well as beta blockers. Instead, she was started on Sinemet and is currently taking 25-100mg TID. Symptoms initially improved with use of medication, however, at time of appointment today she reports worsening of tremor and stiffness. She is currently taking her medication at 7am, 2pm, and 7pm. 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 Exam notable for tremor to BUE and intermittently to jaw. Shuffling with ambulation (though stable and not using cane) and altered THAI/tapping. Uncertain if exam findings are more notable today than time of last appointment secondary to timing of medication. Nevertheless, given report of worsening of sx at home as well, feel that return to movement disorder clinic for updated assessment/evaluation would be beneficial. New consult has been placed and she will schedule after OV today. In interim will increase Sinemet to 1.5 tablets TID to determine if there is any further benefit from medication. R29.810 Facial weakness Comment: Pt noted to have facial asymmetry on exam with R facial weakness. No other focal neurological deficits are noted on exam with exception of decreased sensation to temperature in RLE. Strength intact in RU/LE. Will order MRI of brain to evaluate for possible cause of sx including infarct given multiple risk factors (htn, hld, DM, sleep apnea). Faithmaría Raygoza APRN.CNP I spent a total of 40 minutes on the date of the service which included preparing to see the patient, [id number] patient care, completing clinical documentation, obtaining and/or reviewing separately obtained history, performing a medically appropriate examination, counseling and educating the patient/family/caregiver, and ordering medications, tests, or procedures. documented in this encounter [facility] 05-28-2022 Note Patient Outreach (JACQUELINE PINEDA) TIFFANIE DEVLIN ([id number]) 1955 F Date Time Provider Department 05/28/22 SELENE MILLER During your visit today, we recorded the following information about you: Selene Miller MA 05/28/2022 12:53 PM Signed POPULATION HEALTH NAVIGATION OUTREACH Action/ NO ANSWER Grapeshot MESSAGE SENT ANNUAL MEDCIARE WELLNESS MAMMOGRAM due on 04/21/2019 URINE ALBUMIN:CREATININE RATIO due on 01/15/2022 DILATED RETINAL EXAM due on 03/13/2022 Patient Identified by Name and : NO Outreach Outcome/Action Unable to reach patient: Phone number not valid / voicemail full Narvii message sent Did you use a PCP flex slot to schedule this appointment? N/A Reason for Outreach Care Gap or Scheduling/Wellness visits Payer: Payor: MEDICARE / Plan: MEDICARE A AND B / Product Type: Medicare / Care Gap Reviewed:: Annual Wellness visit Breast Cancer screening Diabetic Eye Exam Nephropathy (Albumin/Creatinine) Urine Reminder: Reminder note to check Health Maintenance for items below Health Maintenance items due: SHINGRIX VACCINE(1 of 2) Never done MAMMOGRAM due on 04/21/2019 DIABETIC FOOT EXAM due on 04/02/2021 URINE ALBUMIN:CREATININE RATIO due on 01/15/2022 DEPRESSION ASSESSMENT due on 03/02/2022 DILATED RETINAL EXAM due on 03/13/2022 Navigation Signature: Selenejules Miller MA May 28, 2022 8:23 AM Allergies As of Date: 05/28/2022 Noted Allergy Reaction PINEAPPLE 08/29/2020 7 - Swelling Comments: was not ripe ADHESIVE TAPE (ROSINS) 11/24/2005 2 - Rash ADVAIR DISKUS (FLUTICASONE PROPIO*11/05/2005 7 - Swelling ALTACE (RAMIPRIL) 11/05/2005 10 - Anaphylaxis ATROVENT (IPRATROPIUM BROMIDE) 11/05/2005 2 - Rash BIAXIN (CLARITHROMYCIN) 11/05/2005 1 - Mental Status Change Comments: Can take zithromax CARDIZEM (DILTIAZEM HCL) 11/05/2005 10 - Anaphylaxis CELEXA (CITALOPRAM HYDROBROMIDE) 07/06/2006 Comments: Muscle pain and fatigue CIPROFLOXACIN 03/22/2015 2 - Rash 14 - Other: See Comments Comments: Tendonitis in hands CODEINE 11/05/2005 2 - Rash COVERA-HS (VERAPAMIL HCL) 11/05/2005 Comments: Confusion, constipation HYZAAR (LOSARTAN-HYDROCHLOROTHIAZ*11/05 2 - Rash Comments: Cramps, chills KEFLEX (CEPHALEXIN) 11/05/2005 9 - Itching Comments: rash LABETALOL 11/05/2005 2 - Rash LAMICTAL (LAMOTRIGINE) 11/05/2005 2 - Rash LATEX 07/14/2008 2 - Rash Comments: Occurs if latex on skin for long periods LORTAB (HYDROCODONE-ACETAMINOPHEN)11/05 1 - Mental Status Change MOBIC (MELOXICAM) 01/02/2011 14 - Other: See Comments Comments: [place] like something squeezing heart PROZAC (FLUOXETINE HCL) 05/13/2006 12 - Shortness of Breath Comments: sob,chest pains SEPTRA (SULFAMETHOXAZOLE-TRIMETHO*11/05 8 - GI Upset SEROQUEL (QUETIAPINE FUMARATE) 11/05/2005 12 - Shortness of Breath TOPAMAX (TOPIRAMATE) 07/11/2013 14 - Other: See Comments Comments: gait instability and felt stupid VICTOZA (LIRAGLUTIDE) 10/18/2010 7 - Swelling Comments: throat swelling ZOCOR (SIMVASTATIN) 07/14/2008 7 - Swelling ZOLOFT (SERTRALINE HCL) 09/25/2006 5 - Intolerance Comments: Severe chest pain Already tried pravastatin and lovastatin and atorvastatin and had adverse effects with all ZONEGRAN (ZONISAMIDE) 11/05/2005 12 - Shortness of Breath Date Reviewed: 04/10/2022 Reviewed by: Faith Raygoza APRN.ASSEMBLING INSPECTOR - Fully Assessed Reason for Visit: Population Health Navigation Outreach [3910] Cmt: JAI CLINE PCSA Prescriptions as of 05/28/2022 - amLODIPine (NORVASC) 10 mg tablet Take 1 tablet by mouth once daily. - cholecalciferol (VITAMIN D3) 50 mcg (2,000 unit) tablet Take 1 tablet by mouth once daily. - cloNIDine HCl (CATAPRES) 0.3 mg tablet Take 1 tablet by mouth twice daily. - diclofenac, EC, (VOLTAREN) 75 mg EC tablet Take 1 tablet by mouth twice daily. For pain/inflammation. Take with food. - insulin degludec (TRESIBA FLEXTOUCH U-200) 200 unit/mL (3 mL) injection Inject 56 Units subcutaneously daily at bedtime. - mecobalamin, vitamin B12, (B12 ACTIVE) 1,000 mcg chew Take 1 tablet by mouth once daily. - metFORMIN (GLUCOPHAGE) 1,000 mg tablet Take 1 tablet by mouth twice daily. - Methenamine Hippurate (HIPREX) 1 gram tablet Take 1 tablet by mouth twice daily with meals. - oxybutynin ER (DITROPAN XL) 15 mg 24 hr Extended Rel Tab Take 1 tablet by mouth twice daily. - carbidopa-levodopa (SINEMET 25-100) 25-100 mg per tablet Take 1 tablet by mouth three times daily. Take one tablet at 7am, 1pm, and 7pm. - phytonadione, vit K1, (VITAMIN K) 100 mcg tablet Take 100 mcg by mouth once daily. - omega-3 fatty acids (FISH OIL MINI 1290 MG SOFTGEL) Take 2,000 mg by mouth once daily. - omega-3 fatty acids 1,000 mg cap Take 2 capsules by mouth once daily. - blood sugar diagnostic (BLOOD GLUCOSE TEST) test strip Test blood sugar(s) 3 times daily a (more content not included)... [facility] 05-28-2022 Note HNO ID: [id number] Author: Selene Miller MA Service: ? Author Type: Security Operations Engineer Type: Progress Notes Filed: 05/28/2022 12:53 PM Note Text: POPULATION HEALTH NAVIGATION OUTREACH Action/ NO ANSWER MYCHART MESSAGE SENT ANNUAL MEDCIARE WELLNESS MAMMOGRAM due on 04/21/2019 URINE ALBUMIN:CREATININE RATIO due on 01/15/2022 DILATED RETINAL EXAM due on 03/13/2022 Patient Identified by Name and : NO Outreach Outcome/Action Unable to reach patient: Phone number not valid / voicemail full MyChart message sent Did you use a PCP flex slot to schedule this appointment? N/A Reason for Outreach Care Gap or Scheduling/Wellness visits Payer: Payor: MEDICARE / Plan: MEDICARE A AND B / Product Type: Medicare / Care Gap Reviewed:: Annual Wellness visit Breast Cancer screening Diabetic Eye Exam Nephropathy (Albumin/Creatinine) Urine Reminder: Reminder note to check Health Maintenance for items below Health Maintenance items due: SHINGRIX VACCINE(1 of 2) Never done MAMMOGRAM due on 04/21/2019 DIABETIC FOOT EXAM due on 04/02/2021 URINE ALBUMIN:CREATININE RATIO due on 01/15/2022 DEPRESSION ASSESSMENT due on 03/02/2022 DILATED RETINAL EXAM due on 03/13/2022 Navigation Signature: Selene Miller MA May 28, 2022 8:23 AM [facility] 05-28-2022 History of Presen t illness Narrative POPULATION HEALTH NAVIGATION OUTREACH Action/I NO ANSWER MYCHART MESSAGE SENT ANNUAL MEDCIARE WELLNESS MAMMOGRAM due on 04/21/2019 URINE ALBUMIN:CREATININE RATIO due on 01/15/2022 DILATED RETINAL EXAM due on 03/13/2022 Patient Identified by Name and : NO Outreach Outcome/Action Unable to reach patient: Phone number not valid / voicemail full MyChart message sent Did you use a PCP flex slot to schedule this appointment? N/A Reason for Outreach Care Gap or Scheduling/Wellness visits Payer: Payor: MEDICARE / Plan: MEDICARE A AND B / Product Type: Medicare / Care Gap Reviewed:: Annual Wellness visit Breast Cancer screening Diabetic Eye Exam Nephropathy (Albumin/Creatinine) Urine Reminder: Reminder note to check Health Maintenance for items below Health Maintenance items due: SHINGRIX VACCINE(1 of 2) Never done MAMMOGRAM due on 04/21/2019 DIABETIC FOOT EXAM due on 04/02/2021 URINE ALBUMIN:CREATININE RATIO due on 01/15/2022 DEPRESSION ASSESSMENT due on 03/02/2022 DILATED RETINAL EXAM due on 03/13/2022 Navigation Signature: Selene Miller MA May 28, 2022 8:23 AM documented in this encounter [facility] 04-29-2022 Miscellaneous Notes Last seen pcp 02/10/22. Next appt with pcp 10/08/22. Patient has been identified by name and date of : Yes Requested Prescriptions Pending Prescriptions Disp Refills amLODIPine (NORVASC) 10 mg tablet 90 tablet 3 Sig: Take 1 tablet by mouth once daily. cholecalciferol (VITAMIN D3) 50 mcg (2,000 unit) tablet 90 tablet 3 Sig: Take 1 tablet by mouth once daily. cloNIDine HCl (CATAPRES) 0.3 mg tablet 180 tablet 3 Sig: Take 1 tablet by mouth twice daily. diclofenac, EC, (VOLTAREN) 75 mg EC tablet 180 tablet 3 Sig: Take 1 tablet by mouth twice daily. For pain/inflammation. Take with food. insulin degludec (TRESIBA FLEXTOUCH U-200) 200 unit/mL (3 mL) injection 15 Each 3 Sig: Inject 56 Units subcutaneously daily at bedtime. mecobalamin, vitamin B12, (B12 ACTIVE) 1,000 mcg chew 90 tablet 3 Sig: Take 1 tablet by mouth once daily. metFORMIN (GLUCOPHAGE) 1,000 mg tablet 180 tablet 3 Sig: Take 1 tablet by mouth twice daily. Methenamine Hippurate (HIPREX) 1 gram tablet 180 tablet 3 Sig: Take 1 tablet by mouth twice daily with meals. oxybutynin ER (DITROPAN XL) 15 mg 24 hr Extended Rel Tab 180 tablet 3 Sig: Take 1 tablet by mouth twice daily. Refused Prescriptions Disp Refills oxybutynin ER (DITROPAN XL) 15 mg 24 hr Extended Rel Tab 180 tablet 3 Sig: Take 1 tablet by mouth twice daily. Refused By: BHAVIK LEONE Reason for Refusal: Request already responded to by other means (for example, phone, fax) metFORMIN (GLUCOPHAGE) 1,000 mg tablet 180 tablet 3 Sig: Take 1 tablet by mouth twice daily. Refused By: BHAVIK LEONE Reason for Refusal: Request already responded to by other means (for example, phone, fax) amLODIPine (NORVASC) 10 mg tablet 90 tablet 3 Sig: Take 1 tablet by mouth once daily. Refused By: BHAVIK LEONE Reason for Refusal: Request already responded to by other means (for example, phone, fax) omega-3 fatty acids (FISH OIL MINI 1290 MG SOFTGEL) 90 capsule 11 Sig: Take 2,000 mg by mouth once daily. Refused By: BHAVIK LEONE Reason for Refusal: Request already responded to by other means (for example, phone, fax) mecobalamin, vitamin B12, (B12 ACTIVE) 1,000 mcg chew 90 tablet 3 Sig: Take 1 tablet by mouth once daily. Refused By: BHAVIK LEONE Reason for Refusal: Request already responded to by other means (for example, phone, fax) cloNIDine HCl (CATAPRES) 0.3 mg tablet 180 tablet 3 Sig: Take 1 tablet by mouth twice daily. Refused By: BHAVIK LEONE Reason for Refusal: Request already responded to by other means (for example, phone, fax) cholecalciferol (VITAMIN D3) 50 mcg (2,000 unit) tablet 90 tablet 3 Sig: Take 1 tablet by mouth once daily. Refused By: BHAVIK LEONE Reason for Refusal: Request already responded to by other means (for example, phone, fax) Methenamine Hippurate (HIPREX) 1 gram tablet 180 tablet 3 Sig: Take 1 tablet by mouth twice daily with meals. Refused By: BHAVIK LEONE Reason for Refusal: Request already responded to by other means (for example, phone, fax) diclofenac, EC, (VOLTAREN) 75 mg EC tablet 180 tablet 1 Sig: Take 1 tablet by mouth twice daily. For pain/inflammation. Take with food. Refused By: BHAVIK LEONE Reason for Refusal: A Refill not appropriate RX INSTRUCTIONS: PLEASE NOTE: Patient called and she was changing to a new pharmacy: [facility]. This was never documented that she was changing her Pharmacy and then the next person never called and asked her why she was requesting the medication. I CONFIRMED ALL prescriptions that the Patient needs, and have attached each one for [facility]. Patient aware RX escripted to mail away pharmacy. Please call or leave a message once this is submitted Ceci Sanchez Patient has been identified by name and date of : Yes Requested Prescriptions Pending Prescriptions Disp Refills oxybutynin ER (DITROPAN XL) 15 mg 24 hr Extended Rel Tab 180 tablet 3 Sig: Take 1 tablet by mouth twice daily. metFORMIN (GLUCOPHAGE) 1,000 mg tablet 180 tablet 3 Sig: Take 1 tablet by mouth twice daily. amLODIPine (NORVASC) 10 mg tablet 90 tablet 3 Sig: Take 1 tablet by mouth once daily. omega-3 fatty acids (FISH OIL MINI 1290 MG SOFTGEL) 90 capsule 11 Sig: Take 2,000 mg by mouth once daily. mecobalamin, vitamin B12, (B12 ACTIVE) 1,000 mcg chew 90 tablet 3 Sig: Take 1 tablet by mouth once daily. cloNIDine HCl (CATAPRES) 0.3 mg tablet 180 tablet 3 Sig: Take 1 tablet by mouth twice daily. cholecalciferol (VITAMIN D3) 50 mcg (2,000 unit) tablet 90 tablet 3 Sig: Take 1 tablet by mouth once daily. Methenamine Hippurate (HIPREX) 1 gram tablet 180 tablet 3 Sig: Take 1 tablet by mouth twice daily with meals. diclofenac, EC, (VOLTAREN) 75 mg EC tablet 180 tablet 1 Sig: Take 1 tablet by mouth twice daily. For pain/inflammation. Take with food. RX INSTRUCTIONS: Patient aware RX will be sent to pharmacy. No need to notify patient. Radha Martinez Pss documented in this encounter [facility] 04-10-2022 Note HNO ID: [id number] Author: Faith Raygoza APRN.[place]QU[place] Service: ? Author Type: Nurse Practitioner Type: Progress Notes Filed: 04/10/2022 2:46 PM Note Text: [facility] [place] Follow-up Visit Follow-up note April 10, 2022 HPI: Ms. Devlin is a right handed female who presents today for a follow-up visit. Per her previous visit on 11/28/21: R25.1 Tremor (primary encounter diagnosis) Comment: Patient previously seen for tremor in general neurology office and prior to that was seen by movement disorder clinic. Hx and exam suggestive of essential tremor with superimposed functional tremor. However, some exam findings still suggestive of Parkinsonism. Past medications have included Topamax, Zonegran, Primidone. Unable to take benzos as well as beta blockers. At time of previous appointment she was started on Keppra 250mg BID, however, due to SE medication was discontinued. At time of appointment today she does report stiffness to muscles and persistence of tremor. Exam unchanged to that noted at time of previous appointment. As discussed at time of previous visit with Dr. Poole, pt will begin trial of low dose Sinemet 1/2 25-100mg tablet TID with meals. SE reviewed. Of note, pt reports she was unable to follow up with the movement disorder clinic since time of previous appointment as she is unable to travel father than [place]. Did discuss that if no improvement with initiation of Sinemet, pt may need to return to the movement disorder clinic for further treatment options and she voiced understanding. States she is doing better. Started taking full pill when she started it instead of the half. Did have SE at first but this improved. States she has more energy and strength. Has been able to cut vegetables. Still has some tremor on occasion and can drop her food. Handwriting has improved as well. Walking has improved. Does not have to use wheelchair or walker. Did use can because it was a long walk in today. Taking medication at 10, 4, and 10pm but she is now taking it at 7, 3, and 10pm. States with the evening dose she is able to actually fall asleep because the tremors improve. Will wake and take her medication with food then go back to sleep until 9am. Some days can have word finding difficulty. Speech has improved. Not acting out dreams or yelling out at night. Only wakes a few times at night. Can fall back asleep easily. Denies falls. Sometimes will walk and her feet stop and she feels like the top of body keeps moving. When cold the tremors worsen. When nervous tremor can be worse. Does not drink caffeine or alcohol. 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 ASTHMA UNSPECIFIED 11/05/2005 Benign neoplasm of colon BIPOLAR - SINGLE MANIC EPISODE NOS 11/05/2005 Bipolar affective disorder (HCC) 09/12/2009 depression at this point; no recent manic episodes; noted flare up ofr auditory hallucinations Bipolar I disorder, single manic episode (HCC) 11/05/2005 Carpal tunnel syndrome 11/05/2005 Bilateral DEPRESSIVE DISORDER NEC 11/05/2005 Diabetes mellitus type 2, insulin dependent ([facility]) DIABETES MELLITUS TYPE II-UNCOMPL 08/30/2000 Diverticulosis of colon (without mention of hemorrhage) Edema 11/05/2005 Esophageal reflux 05/13/2006 Esophagitis, unspecified EXTRAPYRAMIDAL DIS NEC 11/05/2005 GENERAL OSTEOARTHROSIS 11/05/2005 HYPERLIPIDEMIA NEC/NOS 11/05/2005 HYPERTENSION NOS 02/09/2006 IRRITABLE COLON 11/05/2005 Morbid Obesity MYALGIA AND MYOSITIS NOS 11/05/2005 NEUROPATHY IN DIABETES 11/05/2005 SLEEP APNEA NOS 11/05/2005 Had CPAP mask, not using Statin intolerance PAST SURGICAL HISTORY Procedure Laterality Date ANESTHESIA VAGINAL HYSTERECTOMY INCL BIOPSY 2004 has one ovary left COLONOSCOPY FLX DX W/COLLJ SPEC WHEN PFRMD 2001 Colonoscopy COLONOSCOPY FLX DX W/COLLJ SPEC WHEN PFRMD 07/21/03 Colonoscopy COLONOSCOPY FLX DX W/COLLJ SPEC WHEN PFRMD 01/06/12 Colonoscopy repeat 5 years ESOPHAGOGASTRODUODENOSCOPY TRANSORAL DIAGNOSTIC 2000 EGD ESOPHAGOGASTRODUODENOSCOPY TRANSORAL DIAGNOSTIC 01/07/12 EGD LAPAROSCOPY SURG CHOLECYSTECTOMY Cholecystectomy, lap LEFT HEART CATH,PERCUTANEOUS Cardiac cath, L heart MASTOIDECTOMY,COMPLETE 1968 osteomyelitis involving mastoid , left NEUROPLASTY AND/TRANSPOS MEDIAN NRV CARPAL TUNNE Right 01/31/2015 Carpal tunnel decomp RIGHT HEART CATHETERIZATION Cardiac cath, R heart SLING OPER STRES INCONTINENCE 1994 Current Outpatient Medications on File Prior to Visit Medication Sig insulin degludec (TRESIBA FLEXTOUCH U-200) 200 unit/mL (3 mL) injection Inject 56 Units subcutaneously daily at bedtime. oxybutynin ER (DITROPAN XL) 15 mg 24 hr Extended Rel Tab Take 1 tablet by mouth twice daily. amLODIPine (NORVASC) 10 mg tablet Take 1 tablet by mouth once daily. metFORMIN (GLUCOPHAGE) 1,000 mg tablet Take 1 tablet by m (more content not included)... [facility] 04-10-2022 History of Presen t illness Narrative Images from the original note were not included. [facility] [place] Follow-up Visit Follow-up note April 10, 2022 HPI: Ms. Devlin is a right handed female who presents today for a follow-up visit. Per her previous visit on 11/28/21: R25.1 Tremor (primary encounter diagnosis) Comment: Patient previously seen for tremor in general neurology office and prior to that was seen by movement disorder clinic. Hx and exam suggestive of essential tremor with superimposed functional tremor. However, some exam findings still suggestive of Parkinsonism. Past medications have included Topamax, Zonegran, Primidone. Unable to take benzos as well as beta blockers. At time of previous appointment she was started on Keppra 250mg BID, however, due to SE medication was discontinued. At time of appointment today she does report stiffness to muscles and persistence of tremor. Exam unchanged to that noted at time of previous appointment. As discussed at time of previous visit with Dr. Poole, pt will begin trial of low dose Sinemet 1/2 25-100mg tablet TID with meals. SE reviewed. Of note, pt reports she was unable to follow up with the movement disorder clinic since time of previous appointment as she is unable to travel father than [place]. Did discuss that if no improvement with initiation of Sinemet, pt may need to return to the movement disorder clinic for further treatment options and she voiced understanding. States she is doing better. Started taking full pill when she started it instead of the half. Did have SE at first but this improved. States she has more energy and strength. Has been able to cut vegetables. Still has some tremor on occasion and can drop her food. Handwriting has improved as well. Walking has improved. Does not have to use wheelchair or walker. Did use can because it was a long walk in today. Taking medication at 10, 4, and 10pm but she is now taking it at 7, 3, and 10pm. States with the evening dose she is able to actually fall asleep because the tremors improve. Will wake and take her medication with food then go back to sleep until 9am. Some days can have word finding difficulty. Speech has improved. Not acting out dreams or yelling out at night. Only wakes a few times at night. Can fall back asleep easily. Denies falls. Sometimes will walk and her feet stop and she feels like the top of body keeps moving. When cold the tremors worsen. When nervous tremor can be worse. Does not drink caffeine or alcohol. 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 ASTHMA UNSPECIFIED 11/05/2005 Benign neoplasm of colon BIPOLAR - SINGLE MANIC EPISODE NOS 11/05/2005 Bipolar affective disorder ([facility]) 09/12/2009 depression at this point; no recent manic episodes; noted flare up ofr auditory hallucinations Bipolar I disorder, single manic episode (HCC) 11/05/2005 Carpal tunnel syndrome 11/05/2005 Bilateral DEPRESSIVE DISORDER NEC 11/05/2005 Diabetes mellitus type 2, insulin dependent ([facility]) DIABETES MELLITUS TYPE II-UNCOMPL 08/30/2000 Diverticulosis of colon (without mention of hemorrhage) Edema 11/05/2005 Esophageal reflux 05/13/2006 Esophagitis, unspecified EXTRAPYRAMIDAL DIS NEC 11/05/2005 GENERAL OSTEOARTHROSIS 11/05/2005 HYPERLIPIDEMIA NEC/NOS 11/05/2005 HYPERTENSION NOS 02/09/2006 IRRITABLE COLON 11/05/2005 Morbid Obesity MYALGIA AND MYOSITIS NOS 11/05/2005 NEUROPATHY IN DIABETES 11/05/2005 SLEEP APNEA NOS 11/05/2005 Had CPAP mask, not using Statin intolerance PAST SURGICAL HISTORY Procedure Laterality Date ANESTHESIA VAGINAL HYSTERECTOMY INCL BIOPSY 2004 has one ovary left COLONOSCOPY FLX DX W/COLLJ SPEC WHEN PFRMD 2001 Colonoscopy COLONOSCOPY FLX DX W/COLLJ SPEC WHEN PFRMD 07/21/03 Colonoscopy COLONOSCOPY FLX DX W/COLLJ SPEC WHEN PFRMD 01/06/12 Colonoscopy repeat 5 years ESOPHAGOGASTRODUODENOSCOPY TRANSORAL DIAGNOSTIC 2000 EGD ESOPHAGOGASTRODUODENOSCOPY TRANSORAL DIAGNOSTIC 01/07/12 EGD LAPAROSCOPY SURG CHOLECYSTECTOMY Cholecystectomy, lap LEFT HEART CATH,PERCUTANEOUS Cardiac cath, L heart MASTOIDECTOMY,COMPLETE 1968 osteomyelitis involving mastoid , left NEUROPLASTY &/TRANSPOS MEDIAN NRV CARPAL TUNNE Right 01/31/2015 Carpal tunnel decomp RIGHT HEART CATHETERIZATION Cardiac cath, R heart SLING OPER STRES INCONTINENCE 1994 Current Outpatient Medications on File Prior to Visit Medication Sig insulin degludec (TRESIBA FLEXTOUCH U-200) 200 unit/mL (3 mL) injection Inject 56 Units subcutaneously daily at bedtime. oxybutynin ER (DITROPAN XL) 15 mg 24 hr Extended Rel Tab Take 1 tablet by mouth twice daily. amLODIPine (NORVASC) 10 mg tablet Take 1 tablet by mouth once daily. metFORMIN (GLUCOPHAGE) 1,000 mg tablet Take 1 tablet by mouth twice daily. cloNIDine HCl (CATAPRES) 0.3 mg tablet Take 1 tablet by mouth twice daily. Methenamine Hippurate (HIPREX) 1 gram tablet Take 1 tablet by mouth twice daily with meals. mecobalamin, vitamin B12, (B12 ACTIVE) 1,000 mcg chew Take 1 tablet by mouth once daily. carbidopa-levodopa (SINEMET 25-100) 25-100 mg per tablet TAKE 1 TABLET BY MOUTH THREE TIMES A DAY diclofenac XR (VOLTAREN-XR) 100 mg Tb24 Take 1 tablet by mouth twice daily. phytonadione, vit K1, (VITAMIN K) 100 mcg tablet Take 100 mcg by mouth once daily. cholecalciferol (VITAMIN D3) 50 mcg (2,000 unit) tablet Take 1 tablet by mouth once daily. omega-3 fatty acids (FISH OIL MINI 1290 MG SOFTGEL) Take 2,000 mg by mouth once daily. omega-3 fatty acids 1,000 mg cap Take 2 capsules by mouth once daily. (Patient not taking: No sig reported) blood sugar diagnostic (BLOOD GLUCOSE TEST) test strip Test blood sugar(s) 3 times daily and as needed for symptoms of high and low sugars. Dx: Other DM Code E11.40 Insulin: Yes Lancets lancets Check blood sugar 3 times daily and as needed for symptoms of high or low sugars DX: E11.40 Insulin:Yes. Please give lancet pen if does not come with the meter Blood-Glucose Meter monitoring kit Glucose Meter of Choice - Kit - As directed to test blood sugar up to 3 times daily. Dx: Other DM Code E11.40. Insulin [place], Disposable, (BD INSULIN PEN NEEDLE UF) 29 gauge x 1/2 ndle USE TO INJECT TWICE DAILY Aspirin 81 mg tab Take 1 tablet by mouth once daily. Take with food. (Patient taking differently: Take 81 mg by mouth twice daily. Take with food.) No current facility-administered medications on file prior to visit. Social History Tobacco Use Smoking status: Never Smokeless tobacco: Never Substance Use Topics Alcohol use: No Drug use: No ALLERGIES Allergen Reactions Pineapple Swelling was not ripe Adhesive Tape (Wendy* Rash Advair Diskus [Flut* Swelling Altace [Ramipril] Anaphylaxis Atrovent [Ipratropi* Rash Biaxin [Clarithromy* Mental Status Change Can take zithromax Cardizem [Diltiazem* Anaphylaxis Celexa [Citalopram * Muscle pain and fatigue Ciprofloxacin Rash, Other: See Comments Tendonitis in hands Codeine Rash Covera-Hs [Verapami* Confusion, constipation Hyzaar [Losartan-Hy* Rash Cramps, chills Keflex [Cephalexin] Itching rash Labetalol Rash Lamictal [Lamotrigi* Rash Latex Rash Occurs if latex on skin for long periods Lortab [Hydrocodone* Mental Status Change Mobic [Meloxicam] Other: See Comments [place] like something squeezing heart Prozac [Fluoxetine * Shortness of Breath sob,chest pains Septra [Sulfamethox* GI Upset Seroquel [Quetiapin* Shortness of Breath Topamax [Topiramate] Other: See Comments gait instability and felt stupid Victoza [Liraglutid* Swelling throat swelling Zocor [Simvastatin] Swelling Zoloft [Sertraline * Intolerance Severe chest pain Already tried pravastatin and lovastatin and atorvastatin and had adverse effects with all Zonegran [Zonisamid* Shortness of Breath Review of Systems: Cardiopulmonary: denies chest pain, palpitations Respiratory: denies shortness of breath GI/: denies recent nausea, vomiting, diarrhea, constipation, + incontinence (on medication) Musculoskeletal: denies weakness Back/spine: denies low back or cervical pains Neuro: denies + tremors, loss of feeling, dizziness, seizure, blackout, paresthesia, facial paresthesia, facial weakness, difficulty in speech, slurring of words, dysarthria, dysphagia, headache, vision changes Physical Exam: 04/10/22 1331 BP: 125/74 Pulse: 72 Resp: 18 Temp: 36.6 C (97.9 F) SpO2: 95% Weight: 108.1 kg (238 lb 6.4 oz) Patient is alert and in no distress. Dress is appropriate. Mood is appropriate Breathing appears regular and unstressed Neurologic examination: Cognitively intact. No deficits. No formal MMSE performed. CN: Pupils equal and reactive to light, extraocular movements intact with no nystagmus, face is symmetric with no facial droop, hearing intact bilaterally, symmetric evaluation of the soft palate, tongue is midline with no deviation, shoulder shrug is symmetric. Motor exam shows 5/5 strength symmetric through the upper and lower extremities in all groups tested. Sensory intact to light touch in all extremities. Vibratory sensation is intact and symmetric all extremities. Deep tendon reflexes are symmetric at the biceps, brachioradialis, and decreased at patella, and achilles bilaterally. Coordination: No dysmetria on finger to nose. No drift seen. Slight shuffle but stable without cane. THAI of pronation and supination, finger and hand tapping slow bilaterally (improved since time of previous appointment). Toe tapping decreased bilaterally. No rigidity, cog wheeling. Tremor at rest in BUE L>R with occasional spread to mouth. Occasional cessation of tremor when completing other tasks. Good arm swing symmetric. Uses arms to get out of chair. No retropulsion. Labs/studies: Component Latest Ref Rng & Units 02/14/2022 Protein, Total 6.3 - 8.0 g/dL 6.6 Albumin 3.9 - 4.9 g/dL 3.7 (L) Calcium 8.5 - 10.2 mg/dL 9.5 Bilirubin, Total 0.2 - 1.3 mg/dL 0.3 Alkaline Phosphatase 34 - 123 U/L 96 AST 13 - 35 U/L 18 ALT 7 - 38 U/L 26 Glucose 74 - 99 mg/dL 103 (H) BUN 7 - 21 mg/dL 24 (H) Creatinine 0.58 - 0.96 mg/dL 0.75 Sodium 136 - 144 mmol/L 140 Potassium 3.7 - 5.1 mmol/L 4.4 Chloride 97 - 105 mmol/L 104 CO2 22 - 30 mmol/L 25 Anion Gap 9 - 18 mmol/L 11 eGFR >=60 mL/min/1.73m 89 WBC 3.70 - 11.00 k/uL 12.67 (H) RBC 3.90 - 5.20 m/uL 4.60 Hemoglobin 11.5 - 15.5 g/dL 11.8 Hematocrit 36.0 - 46.0 % 38.3 MCV 80.0 - 100.0 fL 83.3 MCH 26.0 - 34.0 pg 25.7 (L) MCHC 30.5 - 36.0 g/dL 30.8 RDW-CV 11.5 - 15.0 % 15.1 (H) Platelet Count 150 - 400 k/uL 222 MPV 9.0 - 12.7 fL 12.4 Absolute nRBC <0.01 k/uL <0.01 Hemoglobin A1C 4.3 - 5.6 % 6.0 (H) Estimated Average Glucose mg/dL 126 Assessment/Plan: R25.1 Tremor (primary encounter diagnosis) Comment: Patient previously seen for tremor in general neurology office and prior to that was seen by movement disorder clinic. Hx and exam suggestive of essential tremor with superimposed functional tremor. However, some exam findings still suggestive of Parkinsonism. Past medications have included Topamax, Zonegran, Primidone, and Keppra. Unable to take benzos as well as beta blockers. At time of previous appointment she was started on Sinemet 25-100mg TID. Today she reports significant improvement in symptoms including ability to ambulate, stiffness, and tremor. On exam, gait improved though tremor notable in hands and mouth. She reports that she is taking medication at 7am, 3pm, and 10pm. Time of appointment today is at 2pm and she reports it is almost time to take dose of medication. Discussed adjusting schedule so that medication is taken earlier in the day preventing periods of exacerbation of symptoms. She will adjust schedule to 7am, 1pm, and 7pm. If no improvement of breakthrough symptoms may consider increasing dose of medication verses return to movement disorder clinic. Faith Raygoza APRN.SHAQUILLE I spent a total of 35 minutes on the date of the service which included preparing to see the patient, [id number] patient care, completing clinical documentation, obtaining and/or reviewing separately obtained history, performing a medically appropriate examination, counseling and educating the patient/family/caregiver, and ordering medications, tests, or procedures. documented in this encounter [facility] 04-04-2022 Miscellaneous Notes Spoke with pt and information listed below given. Pt verbalizes understanding. Katy Martinez LPN Below noted. The following approved medication requests have been transmitted electronically. Requested Prescriptions Signed Prescriptions Disp Refills diclofenac, EC, (VOLTAREN) 75 mg EC tablet 180 tablet 1 Sig: Take 1 tablet by mouth twice daily. For pain/inflammation. Take with food. Authorizing Provider: SAGRARIO MOSQUEDA MD Pt called in to report she is on Diclofenac XR and it was increased to 100 mg and she started with chest pain 3 hours after taking the pill. She stopped the 100 mgand waited 3 days then went back on to it again and the same thing happened. Pt decreased back down to 75 mg twice a day and the chest pain stopped. Requesting refill on the 75 mg taking it twice a day. Patient has been identified by name and date of : Yes, Provider Dr. Mosqueda Date 04/03/22 Time 2:31 pm Patient phones for refill(s): Requested Prescriptions Pending Prescriptions Disp Refills diclofenac, EC, (VOLTAREN) 75 mg EC tablet 180 tablet 3 Sig: Take 1 tablet by mouth twice daily. For pain/inflammation. Take with food. Date of last office visit in primary care: 02/10/22 next apt 10/08/22 Last 2 Encounter Wt Readings: Date: Wt: 02/10/2022 110.7 kg (244 lb) 11/28/2021 110.2 kg (243 lb) Previous labs/tests for medication: Not applicable Please advise. Thank you. Katy Martinez LPN documented in this encounter [facility] 03-12-2022 Miscellaneous Notes Duplicate request. Radha Bauman LPN documented in this encounter [facility] 03-05-2022 Miscellaneous Notes Patient has been identified by name and date of : Yes, Provider SARIKA Raygoza Pharmacy phones for refill(s): Requested Prescriptions Pending Prescriptions Disp Refills carbidopa-levodopa (SINEMET 25-100) 25-100 mg per tablet [Pharmacy Med Name: CARBIDOPA-LEVODOPA 25-100 TAB] 90 tablet 2 Sig: TAKE 1 TABLET BY MOUTH THREE TIMES A DAY Date of last office visit in neuro: 11/28/21 Date of next appt in neuro: 04/10/22 Assessment/Plan: R25.1 Tremor (primary encounter diagnosis) Comment: Patient previously seen for tremor in general neurology office and prior to that was seen by movement disorder clinic. Hx and exam suggestive of essential tremor with superimposed functional tremor. However, some exam findings still suggestive of Parkinsonism. Past medications have included Topamax, Zonegran, Primidone. Unable to take benzos as well as beta blockers. At time of previous appointment she was started on Keppra 250mg BID, however, due to SE medication was discontinued. At time of appointment today she does report stiffness to muscles and persistence of tremor. Exam unchanged to that noted at time of previous appointment. As discussed at time of previous visit with Dr. Poole, pt will begin trial of low dose Sinemet 1/2 25-100mg tablet TID with meals. SE reviewed. Of note, pt reports she was unable to follow up with the movement disorder clinic since time of previous appointment as she is unable to travel father than [place]. Did discuss that if no improvement with initiation of Sinemet, pt may need to return to the movement disorder clinic for further treatment options and she voiced understanding. Faith Raygoza, JAY.ASSEMBLING INSPECTOR Last 2 Encounter Wt Readings: Date: Wt: 02/10/2022 110.7 kg (244 lb) 11/28/2021 110.2 kg (243 lb) Please advise. Thank you. Jannette Thorne LPN documented in this encounter [facility] 02-10-2022 History of Presen t illness Narrative This note was created using NoteWriter. Subjective Tiffanie Devlin is a 66 year old female. Patient presents with: F/U 6 months SUBJECTIVE: Tiffanie Devlin is a 66 year old year old lady here today for 6 month follow up appointment for review of medical conditions. Doing well with Dr. Loo taking care of bladder issues. Med is effective. Neurology started her on Sinemet generic--doing well on this. Working with Faith Carrera. Taking diclofenac 2 pills at night instead of 1 twice daily to control pain. No problems with adverse effects from his med. Noted that renal function has been good in normal range. Following with Dr. Prado. Was seeing every 6 months. 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 ASTHMA UNSPECIFIED 11/05/2005 Benign neoplasm of colon BIPOLAR - SINGLE MANIC EPISODE NOS 11/05/2005 Bipolar affective disorder (HCC) 09/12/2009 depression at this point; no recent manic episodes; noted flare up ofr auditory hallucinations Bipolar I disorder, single manic episode (HCC) 11/05/2005 Carpal tunnel syndrome 11/05/2005 Bilateral DEPRESSIVE DISORDER NEC 11/05/2005 Diabetes mellitus type 2, insulin dependent ([facility]) DIABETES MELLITUS TYPE II-UNCOMPL 08/30/2000 Diverticulosis of colon (without mention of hemorrhage) Edema 11/05/2005 Esophageal reflux 05/13/2006 Esophagitis, unspecified EXTRAPYRAMIDAL DIS NEC 11/05/2005 GENERAL OSTEOARTHROSIS 11/05/2005 HYPERLIPIDEMIA NEC/NOS 11/05/2005 HYPERTENSION NOS 02/09/2006 IRRITABLE COLON 11/05/2005 Morbid Obesity MYALGIA AND MYOSITIS NOS 11/05/2005 NEUROPATHY IN DIABETES 11/05/2005 SLEEP APNEA NOS 11/05/2005 Had CPAP mask, not using Statin intolerance Current Outpatient Medications Medication Sig oxybutynin ER (DITROPAN XL) 15 mg 24 hr Extended Rel Tab Take 15 mg by mouth twice daily. insulin degludec (TRESIBA FLEXTOUCH U-200) 200 unit/mL (3 mL) injection Inject 56 Units subcutaneously daily at bedtime. carbidopa-levodopa (SINEMET) 25-100 mg per tablet Take 1 tablet by mouth three times daily. phytonadione, vit K1, (VITAMIN K) 100 mcg tablet Take 100 mcg by mouth once daily. diclofenac, EC, (VOLTAREN) 75 mg EC tablet Take 1 tablet by mouth twice daily. For pain/inflammation. Take with food. cholecalciferol (VITAMIN D3) 50 mcg (2,000 unit) tablet Take 1 tablet by mouth once daily. omega-3 fatty acids (FISH OIL MINI 1290 MG SOFTGEL) Take 2,000 mg by mouth once daily. Methenamine Hippurate (HIPREX) 1 gram tablet Take 1 tablet by mouth twice daily with meals. amLODIPine (NORVASC) 10 mg tablet Take 1 tablet by mouth once daily. metFORMIN (GLUCOPHAGE) 1,000 mg tablet Take 1 tablet by mouth twice daily. cloNIDine HCl (CATAPRES) 0.3 mg tablet Take 1 tablet by mouth twice daily. mecobalamin, vitamin B12, (B12 ACTIVE) 1,000 mcg chew Take by mouth. blood sugar diagnostic (BLOOD GLUCOSE TEST) test strip Test blood sugar(s) 3 times daily and as needed for symptoms of high and low sugars. Dx: Other DM Code E11.40 Insulin: Yes Lancets lancets Check blood sugar 3 times daily and as needed for symptoms of high or low sugars DX: E11.40 Insulin:Yes. Please give lancet pen if does not come with the meter Blood-Glucose Meter monitoring kit Glucose Meter of Choice - Kit - As directed to test blood sugar up to 3 times daily. Dx: Other DM Code E11.40. Insulin [place], Disposable, (BD INSULIN PEN NEEDLE UF) 29 gauge x 1/2 ndle USE TO INJECT TWICE DAILY Aspirin 81 mg tab Take 1 tablet by mouth once daily. Take with food. (Patient taking differently: Take 81 mg by mouth twice daily. Take with food.) omega-3 fatty acids 1,000 mg cap Take 2 capsules by mouth once daily. (Patient not taking: No sig reported) No current facility-administered medications for this visit. Review of Systems Objective BP 122/72 Pulse 94 Wt 110.7 kg (244 lb) SpO2 96% BMI 43.22 kg/m Physical Exam Constitutional: Appearance: Normal appearance. She is obese. HENT: Head: Normocephalic. Eyes: Conjunctiva/sclera: Conjunctivae normal. Cardiovascular: Rate and Rhythm: Normal rate and regular rhythm. Heart sounds: Normal heart sounds. Pulmonary: Effort: Pulmonary effort is normal. Breath sounds: Normal breath sounds. Skin: General: Skin is warm and dry. Neurological: General: No focal deficit present. Mental Status: She is alert and oriented to person, place, and time. Psychiatric: Attention and Perception: Attention and perception normal. Mood and Affect: Mood and affect normal. Speech: Speech normal. Behavior: Behavior normal. Thought Content: Thought content normal. Judgment: Judgment normal. Hemoglobin A1C (%) Date Value 06/10/2021 6.2 01/15/2021 6.5 08/20/2020 6.1 04/30/2020 6.8 03/01/2020 7.0 11/14/2019 7.5 Assessment and Plan Encounter Diagnosis ICD-10-CM 1. Type 2 diabetes mellitus with diabetic neuropathy, with long-term current use of insulin (HCC) E11.40 COMP METABOLIC PANEL Z79.4 HGB A1C 2. Tremor, essential G25.0 3. Essential hypertension I10 COMP METABOLIC PANEL CBC 4. Mixed hyperlipidemia E78.2 LIPID PANEL, NONFASTING 5. Vitamin D deficiency E55.9 VITAMIN D 25 HYDROXY 6. Proteinuria, unspecified type R80.9 PROTEIN CREATININE RATIO 7. Macroalbuminuric diabetic nephropathy (HCC) E11.21 Above issues addressed with patient. Patient involved in shared decision making for management of medical issues. History and medications reviewed. Epic updated as needed Refills and/or prescriptions taken care of and meds adjusted as indicated after reviewed history, exam and labs. Health Maintenance reviewed. Updated record and/or ordered tests as recorded. Encouraged on efforts at healthy diet and regular exercise and adequate sleep. Needs to keep working on diet and exercise with lifestyle changes for effective weight loss as well as control of DM, and control of BP and lipids. Sagrario Mosqueda MD documented in this encounter [facility] 12-09-2021 Miscellaneous Notes Will continue with current dose of one full tablet TID until time of follow up. Spoke with patient and she states that she has for about the last two weeks been taking a full tablet of sinemet three times daily. She can increase to one full tablet TID. New prescription sent to her [facility] in [place] for update script: Sinemet 25-100mg TID with meals. Patient calls to give provider update since starting on carbidopa-leva dopa. Patient reports that she is getting some of the dexterity back in her hands. She reports she gets about an hours relief with each dose she takes. She reports less tremors as well. Patient asking if she could try a higher dose before refilling next prescription. If so patient would like prescription to be sent to [facility] in [place]. Please review and advise, Krystle Brown RN documented in this encounter [facility] 11-28-2021 History of Presen t illness Narrative Images from the original note were not included. [facility] [place] Follow-up Visit Follow-up note November 28, 2021 HPI: Ms. Devlin presents today for a follow-up visit. Per her previous visit with Dr. Poole on 22: 1. Tremor - ICD9: 781.0, ICD10: R25.1 Patient with tremors as above, for which she was evaluated by Dr. Andrade last year. Agree that tremor by history and exam does suggest essential tremor with superimposed functional tremor. However, there are some findings also suggestive of Parkinsonism (uncertain if patient was on antipsychotics or other meds in the past that might have resulted in dopamine antagonism) such as masked facies and abnormal gait. Discussed with patient treatment options which are quite limited given the number of meds she has already failed due to side effects or the number of allergies she has (I.e. unable to take benzos as well). Options for trial today would include Keppra as there have been some studies suggesting improvement in ET while on the medication (although at higher dosing); trial of Sinemet given Parkinsonism features; surgical evaluation, or referral for CBT/biofeedback. She states she would not have the available transport for the latter. Thus will place on trial of Keppra 250mg BID with pt understanding possible SE and ADRs. If no improvement on Keppra or SE then can consider trial of low dose Sinemet next. If still no response would then ask [facility] to again evaluate patient for other options if any available. Pt agrees with plan above. She is still having tremors with L hand worse than the right. Currently having a good day. States yesterday she could barely walk. States the more tired she becomes the worse the tremor gets. States that her muscles can tighten up as well. Also feels some stiffness to arms from elbow to finger tips. Was receiving muscle relaxant from Dr. Mosqueda but stopped this and feels stiffness may have worsened. She did start Keppra but had SE. Was hearing voices but states then she realized there were actually people there. Also states tremor got worse instead of better. States she could not get in to see Dr. Hansen due to distance. States R foot has been dragging a lot. Can have trouble walking. States people tell her they can't hear her even though she is talking as loud as she can talk. Occasionally speech can slur. Denies freezing when walking. Can be walking and stop but the rest of her will keep moving and she can fall. Difficulty with fine motor coordination. Can act out dreams or yell out. 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 ASTHMA UNSPECIFIED 11/05/2005 Benign neoplasm of colon BIPOLAR - SINGLE MANIC EPISODE NOS 11/05/2005 Bipolar affective disorder (HCC) 09/12/2009 depression at this point; no recent manic episodes; noted flare up ofr auditory hallucinations Bipolar I disorder, single manic episode (HCC) 11/05/2005 Carpal tunnel syndrome 11/05/2005 Bilateral DEPRESSIVE DISORDER NEC 11/05/2005 Diabetes mellitus type 2, insulin dependent (HCC) DIABETES MELLITUS TYPE II-UNCOMPL 08/30/2000 Diverticulosis of colon (without mention of hemorrhage) Edema 11/05/2005 Esophageal reflux 05/13/2006 Esophagitis, unspecified EXTRAPYRAMIDAL DIS NEC 11/05/2005 GENERAL OSTEOARTHROSIS 11/05/2005 HYPERLIPIDEMIA NEC/NOS 11/05/2005 HYPERTENSION NOS 02/09/2006 IRRITABLE COLON 11/05/2005 Morbid Obesity MYALGIA AND MYOSITIS NOS 11/05/2005 NEUROPATHY IN DIABETES 11/05/2005 SLEEP APNEA NOS 11/05/2005 Had CPAP mask, not using Statin intolerance PAST SURGICAL HISTORY Procedure Laterality Date ANESTHESIA VAGINAL HYSTERECTOMY INCL BIOPSY 2005 has one ovary left COLONOSCOPY FLX DX W/COLLJ SPEC WHEN PFRMD 2001 Colonoscopy COLONOSCOPY FLX DX W/COLLJ SPEC WHEN PFRMD 07/21/03 Colonoscopy COLONOSCOPY FLX DX W/COLLJ SPEC WHEN PFRMD 01/06/12 Colonoscopy repeat 5 years ESOPHAGOGASTRODUODENOSCOPY TRANSORAL DIAGNOSTIC 2000 EGD ESOPHAGOGASTRODUODENOSCOPY TRANSORAL DIAGNOSTIC 01/07/12 EGD LAPAROSCOPY SURG CHOLECYSTECTOMY Cholecystectomy, lap LEFT HEART CATH,PERCUTANEOUS Cardiac cath, L heart MASTOIDECTOMY,COMPLETE 1968 osteomyelitis involving mastoid , left NEUROPLASTY &/TRANSPOS MEDIAN NRV CARPAL TUNNE Right 01/31/2015 Carpal tunnel decomp RIGHT HEART CATHETERIZATION Cardiac cath, R heart SLING OPER STRES INCONTINENCE 1994 Current Outpatient Medications on File Prior to Visit Medication Sig diclofenac, EC, (VOLTAREN) 75 mg EC tablet Take 1 tablet by mouth twice daily. For pain/inflammation. Take with food. insulin degludec (TRESIBA FLEXTOUCH U-200) 200 unit/mL (3 mL) injection Inject 56 Units subcutaneously daily at bedtime. cholecalciferol (VITAMIN D3) 50 mcg (2,000 unit) tablet Take 1 tablet by mouth once daily. omega-3 fatty acids (FISH OIL MINI 1290 MG SOFTGEL) Take 2,000 mg by mouth once daily. omega-3 fatty acids 1,000 mg cap Take 2 capsules by mouth once daily. levETIRAcetam (KEPPRA) 250 mg tablet Take 1 tablet by mouth twice daily. (Breakfast and Dinner) (Patient not taking: Reported on 09/17/2021 ) Methenamine Hippurate (HIPREX) 1 gram tablet Take 1 tablet by mouth twice daily with meals. amLODIPine (NORVASC) 10 mg tablet Take 1 tablet by mouth once daily. metFORMIN (GLUCOPHAGE) 1,000 mg tablet Take 1 tablet by mouth twice daily. cloNIDine HCl (CATAPRES) 0.3 mg tablet Take 1 tablet by mouth twice daily. mecobalamin, vitamin B12, (B12 ACTIVE) 1,000 mcg chew Take by mouth. blood sugar diagnostic (BLOOD GLUCOSE TEST) test strip Test blood sugar(s) 3 times daily and as needed for symptoms of high and low sugars. Dx: Other DM Code E11.40 Insulin: Yes Lancets lancets Check blood sugar 3 times daily and as needed for symptoms of high or low sugars DX: E11.40 Insulin:Yes. Please give lancet pen if does not come with the meter Blood-Glucose Meter monitoring kit Glucose Meter of Choice - Kit - As directed to test blood sugar up to 3 times daily. Dx: Other DM Code E11.40. Insulin [place], Disposable, (BD INSULIN PEN NEEDLE UF) 29 gauge x 1/2 ndle USE TO INJECT TWICE DAILY Aspirin 81 mg tab Take 1 tablet by mouth once daily. Take with food. (Patient taking differently: Take 81 mg by mouth twice daily. Take with food. ) No current facility-administered medications on file prior to visit. Social History Tobacco Use Smoking status: Never Smokeless tobacco: Never Substance Use Topics Alcohol use: No Drug use: No ALLERGIES Allergen Reactions Pineapple Swelling was not ripe Adhesive Tape (Wendy* Rash Advair Diskus [Flut* Swelling Altace [Ramipril] Anaphylaxis Atrovent [Ipratropi* Rash Biaxin [Clarithromy* Mental Status Change Can take zithromax Cardizem [Diltiazem* Anaphylaxis Celexa [Citalopram * Muscle pain and fatigue Ciprofloxacin Rash, Other: See Comments Tendonitis in hands Codeine Rash Covera-Hs [Verapami* Confusion, constipation Hyzaar [Losartan-Hy* Rash Cramps, chills Keflex [Cephalexin] Itching rash Labetalol Rash Lamictal [Lamotrigi* Rash Latex Rash Occurs if latex on skin for long periods Lortab [Hydrocodone* Mental Status Change Mobic [Meloxicam] Other: See Comments [place] like something squeezing heart Prozac [Fluoxetine * Shortness of Breath sob,chest pains Septra [Sulfamethox* GI Upset Seroquel [Quetiapin* Shortness of Breath Topamax [Topiramate] Other: See Comments gait instability and felt stupid Victoza [Liraglutid* Swelling throat swelling Zocor [Simvastatin] Swelling Zoloft [Sertraline * Intolerance Severe chest pain Already tried pravastatin and lovastatin and atorvastatin and had adverse effects with all Zonegran [Zonisamid* Shortness of Breath Review of Systems: Cardiopulmonary: denies chest pain, palpitations Respiratory: + shortness of breath (had lung capactiy testing) GI/: denies recent nausea, vomiting, diarrhea, constipation, + incontinence (on medication) Musculoskeletal: denies weakness Back/spine: denies low back or cervical pains Neuro: denies + tremors, loss of feeling, dizziness, seizure, blackout, paresthesia, facial paresthesia, facial weakness, difficulty in speech, + slurring of words, dysarthria, dysphagia, headache, vision changes Physical Exam: 11/28/21 1337 BP: 126/82 Pulse: 100 Resp: 18 Temp: 36.4 C (97.6 F) SpO2: 97% Weight: 110.2 kg (243 lb) Patient is alert and in no distress. Dress is appropriate. Mood is appropriate Breathing appears regular and unstressed Neurologic examination: Cognitively intact. No deficits. No formal MMSE performed. CN: Pupils equal and reactive to light, extraocular movements intact with no nystagmus, face is symmetric with no facial droop, hearing intact bilaterally, symmetric evaluation of the soft palate, tongue is midline with no deviation, shoulder shrug is symmetric. Motor exam shows 5/5 strength symmetric through the upper and lower extremities in all groups tested. Sensory intact to light touch in all extremities. Vibratory sensation is intact and symmetric all extremities. Deep tendon reflexes are symmetric at the biceps, brachioradialis, triceps, patella, and achilles bilaterally. Coordination: No dysmetria on finger to nose. No drift seen. Gait slow; using cane. THAI of pronation and supination, finger and hand tapping slow bilaterally. Toe tapping decreased bilaterally. No rigidity, cog wheeling. Tremor at rest in BUE L>R with occasional spread to mouth. Occasional cessation of tremor when completing other tasks. Good arm swing decreased but symmetric. Uses arms to get out of chair. Labs/studies: Component Latest Ref Rng & Units 06/10/2021 07/24/2021 Protein, Total 6.3 - 8.0 g/dL 7.0 Albumin 3.9 - 4.9 g/dL 4.0 Calcium 8.5 - 10.2 mg/dL 9.4 Bilirubin, Total 0.2 - 1.3 mg/dL 0.2 Alkaline Phosphatase 34 - 123 U/L 73 AST 13 - 35 U/L 22 ALT 7 - 38 U/L 18 Glucose 74 - 99 mg/dL 86 BUN 7 - 21 mg/dL 18 Creatinine 0.58 - 0.96 mg/dL 0.76 Sodium 136 - 144 mmol/L 139 Potassium 3.7 - 5.1 mmol/L 4.5 Chloride 97 - 105 mmol/L 103 CO2 22 - 30 mmol/L 23 Anion Gap 9 - 18 mmol/L 13 eGFR >=60 mL/min/1.73m 88 Cholesterol, Total <200 mg/dL 239 (H) Triglyceride <150 mg/dL 144 HDL Cholesterol >39 mg/dL 47 Non HDL Cholesterol <130 mg/dL 192 (H) Fasting Time hrs 4 VLDL Cholesterol <30 mg/dL 29 TC:HDL Ratio <5.10 5.09 LDL Cholesterol <100 mg/dL 163 (H) LDL:HDL Ratio <2.54 3.47 (H) Protein, Urine Random 0 - 20 mg/dL 75 (H) Creatinine, Ur Random (UCRR) 20.0 - 300.0 mg/dL 63.8 Protein/Creat Ratio <0.2 1.2 (H) Hemoglobin A1C 4.3 - 5.6 % 6.2 (H) Estimated Average Glucose mg/dL 131 Assessment/Plan: R25.1 Tremor (primary encounter diagnosis) Comment: Patient previously seen for tremor in general neurology office and prior to that was seen by movement disorder clinic. Hx and exam suggestive of essential tremor with superimposed functional tremor. However, some exam findings still suggestive of Parkinsonism. Past medications have included Topamax, Zonegran, Primidone. Unable to take benzos as well as beta blockers. At time of previous appointment she was started on Keppra 250mg BID, however, due to SE medication was discontinued. At time of appointment today she does report stiffness to muscles and persistence of tremor. Exam unchanged to that noted at time of previous appointment. As discussed at time of previous visit with Dr. Poole, pt will begin trial of low dose Sinemet 1/2 25-100mg tablet TID with meals. SE reviewed. Of note, pt reports she was unable to follow up with the movement disorder clinic since time of previous appointment as she is unable to travel father than [place]. Did discuss that if no improvement with initiation of Sinemet, pt may need to return to the movement disorder clinic for further treatment options and she voiced understanding. Faith Raygoza APRN.ASSEMBLING INSPECTOR I spent a total of 35 minutes on the date of the service which included preparing to see the patient, [id number] patient care, completing clinical documentation, obtaining and/or reviewing separately obtained history, performing a medically appropriate examination, counseling and educating the patient/family/caregiver, and ordering medications, tests, or procedures. documented in this encounter [facility] 10-10-2021 Miscellaneous Notes Okayed Last seen ENGINEERING OFFICER 06/10/21. Next appt with pcp 02/10/22. Patient has been identified by name and date of : Yes Requested Prescriptions Pending Prescriptions Disp Refills diclofenac, EC, (VOLTAREN) 75 mg EC tablet 90 tablet 3 Sig: Take 1 tablet by mouth twice daily. For pain/inflammation. Take with food. RX INSTRUCTIONS: Patient aware RX will be sent to pharmacy. No need to notify patient. Yasmine Caballero Pss documented in this encounter [facility] 09-17-2021 History of Presen t illness Narrative FOLLOW UP PODIATRIC OFFICE VISIT Chief Complaint: This 66 year old who presents for callus vs wart of right 2nd toe. Patient presents to clinic for evaluation of right foot. She complains of thick skin lesion of right 2nd toe. She is unsure if it is callus vs wart. She complains of pain with walking. She did manage to get some relief by picking the lesion the other day. She has no other complaints. PAIN EVALUATION No data found in the last 1 encounters. Hemoglobin A1C Date Value Ref Range Status 06/10/2021 6.2 (H) 4.3 - 5.6 % Final Comment: [place] [employer] guidelines indicate that patients with HgbA1c in the range 5.7-6.4% are at increased risk for development of diabetes, and intervention by lifestyle modification may be beneficial. HgbA1c greater or equal to 6.5% is considered diagnostic of diabetes. 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 ASTHMA UNSPECIFIED 11/05/2005 Benign neoplasm of colon BIPOLAR - SINGLE MANIC EPISODE NOS 11/05/2005 Bipolar affective disorder (HCC) 09/12/2009 depression at this point; no recent manic episodes; noted flare up ofr auditory hallucinations Bipolar I disorder, single manic episode (HCC) 11/05/2005 Carpal tunnel syndrome 11/05/2005 Bilateral DEPRESSIVE DISORDER NEC 11/05/2005 Diabetes mellitus type 2, insulin dependent ([facility]) DIABETES MELLITUS TYPE II-UNCOMPL 08/30/2000 Diverticulosis of colon (without mention of hemorrhage) Edema 11/05/2005 Esophageal reflux 05/13/2006 Esophagitis, unspecified EXTRAPYRAMIDAL DIS NEC 11/05/2005 GENERAL OSTEOARTHROSIS 11/05/2005 HYPERLIPIDEMIA NEC/NOS 11/05/2005 HYPERTENSION NOS 02/09/2006 IRRITABLE COLON 11/05/2005 Morbid Obesity MYALGIA AND MYOSITIS NOS 11/05/2005 NEUROPATHY IN DIABETES 11/05/2005 SLEEP APNEA NOS 11/05/2005 Had CPAP mask, not using Statin intolerance Current Outpatient Medications Medication Sig omega-3 fatty acids (FISH OIL MINI 1290 MG SOFTGEL) Take 2,000 mg by mouth once daily. Methenamine Hippurate (HIPREX) 1 gram tablet Take 1 tablet by mouth twice daily with meals. amLODIPine (NORVASC) 10 mg tablet Take 1 tablet by mouth once daily. insulin degludec (TRESIBA FLEXTOUCH U-200) 200 unit/mL (3 mL) injection Inject 56 Units subcutaneously daily at bedtime. diclofenac, EC, (VOLTAREN) 75 mg EC tablet Take 1 tablet by mouth twice daily. For pain/inflammation. Take with food. metFORMIN (GLUCOPHAGE) 1,000 mg tablet Take 1 tablet by mouth twice daily. cloNIDine HCl (CATAPRES) 0.3 mg tablet Take 1 tablet by mouth twice daily. mecobalamin, vitamin B12, (B12 ACTIVE) 1,000 mcg chew Take by mouth. cholecalciferol (VITAMIN D3) 50 mcg (2,000 unit) tablet Take 1 tablet by mouth once daily. blood sugar diagnostic (BLOOD GLUCOSE TEST) test strip Test blood sugar(s) 3 times daily and as needed for symptoms of high and low sugars. Dx: Other DM Code E11.40 Insulin: Yes Lancets lancets Check blood sugar 3 times daily and as needed for symptoms of high or low sugars DX: E11.40 Insulin:Yes. Please give lancet pen if does not come with the meter Blood-Glucose Meter monitoring kit Glucose Meter of Choice - Kit - As directed to test blood sugar up to 3 times daily. Dx: Other DM Code E11.40. Insulin [place], Disposable, (BD INSULIN PEN NEEDLE UF) 29 gauge x 1/2 ndle USE TO INJECT TWICE DAILY Aspirin 81 mg tab Take 1 tablet by mouth once daily. Take with food. (Patient taking differently: Take 81 mg by mouth twice daily. Take with food. ) levETIRAcetam (KEPPRA) 250 mg tablet Take 1 tablet by mouth twice daily. (Breakfast and Dinner) (Patient not taking: Reported on 09/17/2021 ) No current facility-administered medications for this visit. ALLERGIES Allergen Reactions Pineapple Swelling was not ripe Adhesive Tape (Wendy* Rash Advair Diskus [Flut* Swelling Altace [Ramipril] Anaphylaxis Atrovent [Ipratropi* Rash Biaxin [Clarithromy* Mental Status Change Can take zithromax Cardizem [Diltiazem* Anaphylaxis Celexa [Citalopram * Muscle pain and fatigue Ciprofloxacin Rash, Other: See Comments Tendonitis in hands Codeine Rash Covera-Hs [Verapami* Confusion, constipation Hyzaar [Losartan-Hy* Rash Cramps, chills Keflex [Cephalexin] Itching rash Labetalol Rash Lamictal [Lamotrigi* Rash Latex Rash Occurs if latex on skin for long periods Lortab [Hydrocodone* Mental Status Change Mobic [Meloxicam] Other: See Comments [place] like something squeezing heart Prozac [Fluoxetine * Shortness of Breath sob,chest pains Septra [Sulfamethox* GI Upset Seroquel [Quetiapin* Shortness of Breath Topamax [Topiramate] Other: See Comments gait instability and felt stupid Victoza [Liraglutid* Swelling throat swelling Zocor [Simvastatin] Swelling Zoloft [Sertraline * Intolerance Severe chest pain Already tried pravastatin and lovastatin and atorvastatin and had adverse effects with all Zonegran [Zonisamid* Shortness of Breath PAST SURGICAL HISTORY Procedure Laterality Date ANESTHESIA VAGINAL HYSTERECTOMY INCL BIOPSY 2004 has one ovary left COLONOSCOPY FLX DX W/COLLJ SPEC WHEN PFRMD 2001 Colonoscopy COLONOSCOPY FLX DX W/COLLJ SPEC WHEN PFRMD 07/21/03 Colonoscopy COLONOSCOPY FLX DX W/COLLJ SPEC WHEN PFRMD 01/06/12 Colonoscopy repeat 5 years ESOPHAGOGASTRODUODENOSCOPY TRANSORAL DIAGNOSTIC 2000 EGD ESOPHAGOGASTRODUODENOSCOPY TRANSORAL DIAGNOSTIC 01/07/12 EGD LAPAROSCOPY SURG CHOLECYSTECTOMY Cholecystectomy, lap LEFT HEART CATH,PERCUTANEOUS Cardiac cath, L heart MASTOIDECTOMY,COMPLETE 1968 osteomyelitis involving mastoid , left NEUROPLASTY &/TRANSPOS MEDIAN NRV CARPAL TUNNE Right 01/31/2015 Carpal tunnel decomp RIGHT HEART CATHETERIZATION Cardiac cath, R heart SLING OPER STRES INCONTINENCE 1994 Physical Exam: OBJECTIVE: Constitutional: Pt is a well developed 66 year old female who is alert, oriented, cooperative and in no apparent distress. Eyes: Following during examination. No redness or drainage. Respiratory: RR normal and nonlabored. Even breathing. No evidence of distress. Psychology: Patient is engaged during conversation. Normal affect and mood. Does not appear depressed or anxious. NVSI unchanged from previous visit. Dermatological: Callus present to right 2nd toe. No underlying ulceraiton. No signs of wart. Musculoskeletal/Orthopaedic: Patient has pain to palpation of right 2nd toe at site of callus ASSESSMENT: Hyperkeratosis (primary encounter diagnosis) PLAN: Callus present to right 2nd toe sharply debrided to right 2nd toe with 15 blade. No evidence of wart on exam Small bleed present and neosporin applied. Held on applying band aide to the toe as patient will not be able to remove herself and she has no one available to remove until next week. She can f/u as needed for callus debridement. Marianela Shearer DPM AMB ROOMING INTAKE FLOWSHEET DATA Risk Screening Do you have concerns about personal safety or safety in the home?: No Patient presents with: Right 2nd Toe - Established Patient, Callus Patient reports callus vs wart to R 2nd plantar toe. States it has been present for about a month. It was very painful with pressure but then she picked black center out of it and now it is not painful. documented in this encounter [facility] 09-17-2021 Instructions Marianela Shearer - 09/17/2021 11:36 AM EDT You had callus of right 2nd toe. No ulceration beneath. If callus returns, call for an appointment documented in this encounter [facility] 08-09-2021 History of Presen t illness Narrative NEW PATIENT (CONSULT) HISTORY AND PHYSICAL EXAM PRIMARY CARE PHYSICIAN: Sagrario Mosqueda MD REASON FOR CONSULT: Tremors REFERRING PHYSICIAN: Ricardo Benedict APRN.MACHINE BINDER STRIPPER CHIEF COMPLAINT: Tremors Consultation requested by Ricardo Benedict APRN.MACHINE BINDER STRIPPER for an opinion regarding chief complaint of Patient presents with: Tremor: hands, chin and sometimes legs and my final recommendations will be communicated back to the requesting physician by way of shared medical record or letter via [place] mail. HISTORY OF PRESENT ILLNESS: Tiffanie Devlin is a 66 year old female, BMI 43.29 kg/m2 with a PMH significant for that noted below. Pt was already establisehd with Ivan Andrade of [facility] and las saw on 10/09/20. Ms. Devlin is a right-handed 65 year old female with tremors, stiff movements, intermittent numbness, gait instability. Tremors are consistent with essential tremor. However the become briefly exacerbated and spread to her leg. +family history of tremors. Suspect functional overlay. Tremors were consistent in multiple body parts at once so likely does have essential tremor. She has already tried and not tolerated primidone, Topamax, Zonegran. Cannot take beta blockers. Unfortunately little else to offer directly for tremors. Also with intermittent numbness of hands and face, diffuse weakness, shuffling gait. No clear evidence for parkinsonism but will need to monitor this for change. Recommend MRI brain and cervical spine to evaluate for causes of these complaints. Depression screening positive. Suspect mood symptoms are worsening her physical ones. Recommend seeing psychiatry. The following are the current problems noted and addressed during this visit: Essential tremor (primary encounter diagnosis) Weakness Decreased dexterity MRI brain and MRI C spine were completed on 10/26/20. Images reviewed and agree with rad report: Brain: Mild microvascular ischemic change and volume loss without an acute abnormality. Next Cervical spine: Degenerative changes resulting in straightening of the normal cervical lordosis but no high-grade canal stenosis. Levels with mild foraminal narrowing detailed in the body the report. Normal spinal cord signal intensity. Dr. Andrade also recommended B12 supplement. Vitamin B12 Date Value Ref Range Status 10/10/2020 237 232 - 1,245 pg/mL Final TSH Date Value Ref Range Status 01/13/2020 0.460 0.270 - 4.200 uU/mL Final Tremors persist in the hands and chin and exacerbated when nervous. States Primidone 50mg made her vision poor despite control of tremor. States gabapentin 100mg BID eases it, but if takes any more than this, she cannot function. States had Topamax years ago and it made her fall down. States she had a side effect on Zonegran in the past. Tremor is always in the left hand but the right hand comes and goes. States it keeps her from doing everything. States sometimes wants to reach out and take something and hand does not respond or foot does not respond. States dreads getting out of bed in the AM, because the tremors stop. States she could not see Dr. Andrade again because she had no transport. Blood sugars well controlled. States overall doing better than she was with Dr. Andrade -- but not in regards to tremors. She takes small steps but blames it on arthritis in her feet. People state she has less expression in her face. No RBD symptoms. Pt has JOSIE, but states she has learned how to control with with positional therapy, a pillow under the chin, and anti-histimines. When asked about prior antipscyhotics, states she was no Zyprexa and Seroquel and they made her delusional and made her top breathing when she was sleep. REVIEW OF SYSTEMS GENERAL:No weight loss, malaise or fevers. HEENT:Negative for frequent or significant headaches, No changes in hearing or vision, no nose bleeds or other nasal problems NECK:Negative for lumps, goiter, pain and significant neck swelling RESPIRATORY: Negative for cough, wheezing or shortness of breath. CARDIOVASCULAR: Negative for chest pain, leg swelling or palpitations. GASTROINTESTINAL: Negative for abdominal discomfort, blood in stools or black stools or change in bowel habits GENITOURINARY: No history of dysuria, frequency or incontinence MUSCULOSKELETAL:Diffuse chronic arthralgias and myalgias. NEUROLOGIC:See HPI LAB/IMAGING: Reviewed and include: WBC (k/uL) Date Value 04/30/2020 12.02 (H) RBC (m/uL) Date Value 04/30/2020 4.84 Hemoglobin (g/dL) Date Value 04/30/2020 13.1 Hematocrit (%) Date Value 04/30/2020 42.0 MCV (fL) Date Value 04/30/2020 86.8 MCH (pG) Date Value 04/30/2020 27.1 MCHC (g/dL) Date Value 04/30/2020 31.2 RDW-CV (%) Date Value 04/30/2020 14.6 Platelet Count (k/uL) Date Value 04/30/2020 109 (L) MPV (fL) Date Value 04/30/2020 11.8 Glucose (mg/dL) Date Value 07/24/2021 95 BUN (mg/dL) Date Value 07/24/2021 20 Creatinine (mg/dL) Date Value 07/24/2021 0.81 Sodium (mmol/L) Date Value 07/24/2021 140 Potassium (mmol/L) Date Value 07/24/2021 4.5 Chloride (mmol/L) Date Value 07/24/2021 102 CO2 (mmol/L) Date Value 07/24/2021 25 Protein, Total (g/dL) Date Value 06/10/2021 7.0 Albumin (g/dL) Date Value 06/10/2021 4.0 Calcium, Total (mg/dL) Date Value 07/24/2021 9.6 Alkaline Phosphatase (U/L) Date Value 06/10/2021 73 Bilirubin, Total (mg/dL) Date Value 06/10/2021 0.2 AST (U/L) Date Value 06/10/2021 22 ALT (U/L) Date Value 06/10/2021 18 Hep C Antibody IA (no units) Date Value 10/10/2020 Negative MEDICATIONS: omega-3 fatty acids (FISH OIL MINI 1290 MG SOFTGEL) Take 2,000 mg by mouth once daily. Methenamine Hippurate (HIPREX) 1 gram tablet Take 1 tablet by mouth twice daily with meals. amLODIPine (NORVASC) 10 mg tablet Take 1 tablet by mouth once daily. insulin degludec (TRESIBA FLEXTOUCH U-200) 200 unit/mL (3 mL) injection Inject 56 Units subcutaneously daily at bedtime. diclofenac, EC, (VOLTAREN) 75 mg EC tablet Take 1 tablet by mouth twice daily. For pain/inflammation. Take with food. metFORMIN (GLUCOPHAGE) 1,000 mg tablet Take 1 tablet by mouth twice daily. cloNIDine HCl (CATAPRES) 0.3 mg tablet Take 1 tablet by mouth twice daily. mecobalamin, vitamin B12, (B12 ACTIVE) 1,000 mcg chew Take by mouth. cholecalciferol (VITAMIN D3) 50 mcg (2,000 unit) tablet Take 1 tablet by mouth once daily. blood sugar diagnostic (BLOOD GLUCOSE TEST) test strip Test blood sugar(s) 3 times daily and as needed for symptoms of high and low sugars. Dx: Other DM Code E11.40 Insulin: Yes Lancets lancets Check blood sugar 3 times daily and as needed for symptoms of high or low sugars DX: E11.40 Insulin:Yes. Please give lancet pen if does not come with the meter Blood-Glucose Meter monitoring kit Glucose Meter of Choice - Kit - As directed to test blood sugar up to 3 times daily. Dx: Other DM Code E11.40. Insulin [place], Disposable, (BD INSULIN PEN NEEDLE UF) 29 gauge x 1/2 ndle USE TO INJECT TWICE DAILY Aspirin 81 mg tab Take 1 tablet by mouth once daily. Take with food. 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 ASTHMA UNSPECIFIED 11/05/2005 Benign neoplasm of colon BIPOLAR - SINGLE MANIC EPISODE NOS 11/05/2005 Bipolar affective disorder (HCC) 09/12/2009 depression at this point; no recent manic episodes; noted flare up ofr auditory hallucinations Bipolar I disorder, single manic episode (HCC) 11/05/2005 Carpal tunnel syndrome 11/05/2005 Bilateral DEPRESSIVE DISORDER NEC 11/05/2005 Diabetes mellitus type 2, insulin dependent (HCC) DIABETES MELLITUS TYPE II-UNCOMPL 08/30/2000 Diverticulosis of colon (without mention of hemorrhage) Edema 11/05/2005 Esophageal reflux 05/13/2006 Esophagitis, unspecified EXTRAPYRAMIDAL DIS NEC 11/05/2005 GENERAL OSTEOARTHROSIS 11/05/2005 HYPERLIPIDEMIA NEC/NOS 11/05/2005 HYPERTENSION NOS 02/09/2006 IRRITABLE COLON 11/05/2005 Morbid Obesity MYALGIA AND MYOSITIS NOS 11/05/2005 NEUROPATHY IN DIABETES 11/05/2005 SLEEP APNEA NOS 11/05/2005 Had CPAP mask, not using Statin intolerance FAMILY HISTORY Problem Relation Age of Onset Diabetes Father Hypertension Father Essential Tremor Father Heart Mother Valve replacements Hypertension Mother Rheumatic Fever Mother Tremor Brother Tremor Sister Tremor Paternal Grandfather Diabetes Son No Ocular Disease No Family History Coronary Artery Disease No Family History Thyroid No Family History Hyperlipidemia No Family History Blood Disease No Family History Blood Clots No Family History Factor 5 Leiden No Family History Stroke No Family History Systemic Lupus Erythematosus No Family History Multiple Sclerosis No Family History Alzheimer's Disease No Family History Dementia No Family History Parkinson s Disease No Family History Aneurysm No Family History Macular Degen No Family History SOCIAL HISTORY Social History Tobacco Use Smoking status: Never Smoker Smokeless tobacco: Never Used Vaping Use Vaping Use: Not on file Substance Use Topics Alcohol use: No Drug use: No PHYSICAL EXAMINATION BP 128/74 Pulse 96 Temp 36.7 C (98.1 F) Resp 18 Wt 110.9 kg (244 lb 6.4 oz) SpO2 97% BMI 43.29 kg/m GENERAL EXAM: General appearance: NAD, pleasant. HEENT: NC/AT, nasal congestion absent, no oral lesions, membranes moist. NECK: No masses, supple. Lungs: CTA bilaterally. CV: Tachy, S1S2. No carotid bruits. Skin: Cool to touch. NEUROLOGICAL EXAM: General: Awake, alert, oriented x3 (person,place,time), speech fluent, no dysarthria; comprehension, naming, repetition intact. Masked facies but no hypophonia. CN: PERRL, fundi appear normal including no evidence of papilledema, EOMI and without nystagmus, VFF to confrontation, facial sensation and strength are normal and symmetric, hearing is intact to finger rub bilaterally, palate and tongue movements are intact and symmetric. SCM and trapezius strength normal. Motor: Normal tone, bulk and strength (5/5) bilaterally (throughout extremities x4) - give way weakness but resolved with distraction. No pronator drift. Reflexes: 2/4 and symmetric, plantar stimulation is flexor. Coordination: FNF, THAI, HTS intact. Tremors most noted in L hand at rest but then can spread to also involve L hand and mouth. Mod amp and mod frequency. Not necessarily present at rest at all times, and sometimes appear to resolve with distraction. Possible functional superimposed tremor. Sensation: Light touch intact throughout. Vibration diminished in toes. No evidence of neglect. Gait: Slow and decreased stride but appears intentional. No issues rising from chair. Arm swing symmetric maddy. Assessment and Plan: ASSESSMENT/PLAN: 1. Tremor - ICD9: 781.0, ICD10: R25.1 Patient with tremors as above, for which she was evaluated by Dr. Andrade last year. Agree that tremor by history and exam does suggest essential tremor with superimposed functional tremor. However, there are some findings also suggestive of Parkinsonism (uncertain if patient was on antipsychotics or other meds in the past that might have resulted in dopamine antagonism) such as masked facies and abnormal gait. Discussed with patient treatment options which are quite limited given the number of meds she has already failed due to side effects or the number of allergies she has (I.e. unable to take benzos as well). Options for trial today would include Keppra as there have been some studies suggesting improvement in ET while on the medication (although at higher dosing); trial of Sinemet given Parkinsonism features; surgical evaluation, or referral for CBT/biofeedback. She states she would not have the available transport for the latter. Thus will place on trial of Keppra 250mg BID with pt understanding possible SE and ADRs. If no improvement on Keppra or SE then can consider trial of low dose Sinemet next. If still no response would then ask [facility] to again evaluate patient for other options if any available. Pt agrees with plan above. Munir Poole MD I spent a total of 45 minutes on the date of the service which included preparing to see the patient, [id number] patient care, completing clinical documentation, obtaining and/or reviewing separately obtained history, performing a medically appropriate examination, counseling and educating the patient/family/caregiver, ordering medications, tests, or procedures, communicating with other HCPs (not separately reported), independently interpreting results (not separately reported) and communicating results to the patient/family/caregiver. documented in this encounter [facility] 06-10-2021 History of Presen t illness Narrative Tiffanie Devlin is a 65 year old female seen for routine follow up. HPI excerpted from previous visit: Notes tremor seems improved with taking cyclobenzaprine BID. Notes had MRI with Dr Andrade. Notes B12 supplementation recommended. Today notes continued tremor. Notes when she feels anxious it is worse. Since last seen she was seen by urology for persistent proteinuria. Nephrology consult was recommended by Isidro Foster PA-C. Scheduled this month She had been following with Dr. Parada regarding diabetes. She was discharged due to reaching goal. She reports good control of diabetes. Reports fasting blood sugars are checked at home. No low readings noted. .She reports no difficulties with medications, stating taking this consistently. She reports no routine exercise, states she is concerned about going outside of her apartment due to coronavirus. No reported polydipsia and polyuria. DIABETES MELLITUS: Without report of excessive thirst or increased frequency of urination, chest pain or dyspnea , numbness, tingling or pain in extremities, new or unusual visual symptoms, low sugar/hypoglycemic reactions, weight loss/gain, lightheadedness/dizziness and bowel changes/loose stools. Patient's last HgA1C was Hemoglobin A1C (%) Date Value 01/15/2021 6.5 08/20/2020 6.1 ) Follows with Dr. Shearer. Reports no current reflux or heartburn symptoms. Reports breathing is good, no difficulties with asthma currently. Hyperlipidemia: She reports prior intolerance of several statins and ezetimibe. States she did not tolerate fish oil. States taking flaxseed did not seem to help. Diet: SAD, DM Her most recent lipid panels are: Cholesterol, Total (mg/dL) Date Value 01/15/2021 234 04/30/2020 244 HDL Cholesterol (mg/dL) Date Value 01/15/2021 45 04/30/2020 43 LDL Cholesterol (mg/dL) Date Value 01/15/2021 151 04/30/2020 163 Triglyceride (mg/dL) Date Value 01/15/2021 189 04/30/2020 190 HTN: Without report of headache, chest pain, palpitations, dyspnea, peripheral edema, orthopnea, fatigue and PND. Last 14 Encounter BP Readings: Date: BP: 11/30/2020 146/74 10/26/2020 140/72 10/09/2020 151/71 08/29/2020 134/88 05/29/2020 134/84 03/01/2020 120/80 11/30/2019 138/88 11/14/2019 138/86 10/17/2019 128/72 10/12/2019 132/78 10/10/2019 136/82 01/07/2019 130/84 12/31/2018 178/102 11/02/2018 128/78 Anxiety and depression: stable mood, no voiced SI, HI Today notes diabetes mellitus well controlled on Tresiba. 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 HTN: Without report ofheadache, chest pain, palpitations, dyspnea, peripheral edema, orthopnea, fatigue and PND. Last 3 Encounter BP Readings: Date: BP: 06/10/2021 140/72 11/30/2020 146/74 10/26/2020 140/72 Notes tremor still bothersome, head and hands. Notes gabapentin helped but she was drowsy in a.m. after taking at bedtime. Helped with aches and pains as well. Prefers not to take at this time. Notes problems with primidone and topirimate also. Notes using assistive devices at home for meals, walking. Notes one fall in the last 12 mos. Notes generalized lower extremities weakness. Notes seen by Dr Andrade about one year ago. Notes taking supplements which seem helpful - B12, B complex, vitamin D,C,K and fish oil. HISTORY REVIEWED (electronic chart updated): - medical history - medications - allergies REVIEW OF SYSTEMS: GENERAL: feeling well without fatigue, no recent change in weight, no fever MSK: chronic knee pain PHYSICAL EXAMINATION: BP 140/72 Pulse 84 Resp 16 Wt 114.8 kg (253 lb) BMI 44.82 kg/m General appearance: Well appearing, alert, in no acute distress, obese, well-hydrated Skin: Skin color, texture, turgor normal, no suspicious rashes or lesions Head: Normocephalic, no masses Eyes: Anicteric sclera. Lungs: Lungs clear to auscultation. No wheezing, rhonchi, rales. Heart: RRR without murmur, gallop, or rubs. Abdomen: Abdomen soft, non-tender. Bowel sounds normal. No masses, organomegaly Extremities: No edema, skin discoloration, clubbing or cyanosis. Good capillary refill. Peripheral pulses: Normal Neuro: Gait normal. Sensation grossly intact. Component Latest Ref Rng & Units 04/30/2020 08/20/2020 10/10/2020 01/15/2021 02/15/2021 WBC 3.70 - 11.00 k/uL 12.02 (H) RBC 3.90 - 5.20 m/uL 4.84 Hemoglobin 11.5 - 15.5 g/dL 13.1 Hematocrit 36.0 - 46.0 % 42.0 MCV 80.0 - 100.0 fL 86.8 MCH 26.0 - 34.0 pG 27.1 MCHC 30.5 - 36.0 g/dL 31.2 RDW-CV 11.5 - 15.0 % 14.6 Platelet Count 150 - 400 k/uL 109 (L) MPV 9.0 - 12.7 fL 11.8 Neut% % 65.2 Abs Neut (ANC) 1.45 - 7.50 k/uL 7.83 (H) Lymph% % 23.5 Abs Lymph 1.00 - 4.00 k/uL 2.83 [place]% % 7.7 Abs [place] <0.87 k/uL 0.92 (H) Eosin% % 2.9 Abs Eosin <0.46 k/uL 0.35 Baso% % 0.7 Abs Baso <0.11 k/uL 0.09 Nucleated Reds 0 /100 WBC 0.0 Absolute nRBC <0.01 k/uL <0.01 Diff Type Auto Diff Protein, Total 6.3 - 8.0 g/dL 6.6 7.3 Albumin 3.9 - 4.9 g/dL 4.0 4.0 Calcium 8.5 - 10.2 mg/dL 9.6 10.0 9.7 Bilirubin, Total 0.2 - 1.3 mg/dL 0.3 0.3 Alkaline Phosphatase 34 - 123 U/L 84 82 AST 13 - 35 U/L 22 30 Glucose 74 - 99 mg/dL 92 102 (H) 84 BUN 7 - 21 mg/dL 21 19 19 Creatinine 0.58 - 0.96 mg/dL 0.86 0.74 0.68 Sodium 136 - 144 mmol/L 140 139 141 Potassium 3.7 - 5.1 mmol/L 4.4 4.9 4.1 Chloride 97 - 105 mmol/L 104 102 103 CO2 22 - 30 mmol/L 23 22 24 Anion Gap 9 - 18 mmol/L 13 15 14 ALT 7 - 38 U/L 17 22 eGFR- >60 >60 >60 eGFR-All Other Races . >60 >60 >60 Cholesterol, Total <200 mg/dL 244 (H) 234 (H) Triglyceride <150 mg/dL 190 (H) 189 (H) HDL Cholesterol >39 mg/dL 43 45 LDL Cholesterol <100 mg/dL 163 (H) 151 (H) Non HDL Cholesterol <130 mg/dL 201 (H) 189 (H) Fasting Time hrs 12 12 VLDL Cholesterol <30 mg/dL 38 (H) 38 (H) TC:HDL Ratio <5.10 5.67 (H) 5.20 (H) LDL:HDL Ratio <2.54 3.79 (H) 3.36 (H) Creatinine, Ur Random (UCRR) 20 - 300 mg/dL 95.6 138.2 78.9 Albumin, Urine Random mg/L 1,146.1 1,806.6 Albumin/Creat Ratio <30 mg/g 1,199 (H) 1,307 (H) HIV 12 Combo (Ag/Ab) Non Reactive Non Reactive HIV-1/2 AB Test Not Indicated HIV Interpretation Negative Protein, Urine Random 0 - 20 mg/dL 185 (H) Protein/Creat Ratio <0.2 2.3 (H) Hemoglobin A1C 4.3 - 5.6 % 6.8 (H) 6.1 (H) 6.5 (H) Estimated Average Glucose mg/dL 148 128 140 Hep C Antibody IA Negative Negative Vitamin B12 232 - 1,245 pg/mL 237 Vitamin B6, Plasma 20.0 - 125.0 nmol/L 32.0 Vitamin D 25 Hydroxy 31.0 - 80.0 ng/mL 7.2 (L) 51.7 The 10-year ASCVD risk score (Walter AFIA Jr., et al., 2013) is: 16.3% Values used to calculate the score: Age: 65 years Sex: Female Is Non- : No Diabetic: Yes Tobacco smoker: No Systolic Blood Pressure: 140 mmHg Is BP treated: Yes HDL Cholesterol: 45 mg/dL Total Cholesterol: 234 mg/dL ASSESSMENT: (G25.0) Tremor, essential (primary encounter diagnosis) PLAN: ASSESSMENT/PLAN: 1. Type 2 diabetes mellitus with diabetic neuropathy, with long-term current use of insulin (HCC) - ICD9: 250.60, 357.2, V58.67, ICD10: E11.40, Z79.4 (primary diagnosis) Continue with current treatment Stable, currently controlled, continue to monitor.Continue with current treatment check labs today - HGB A1C - ALBUMIN/CREAT RATIO RND UR - LIPID PANEL BASIC - COMP METABOLIC PANEL 2. Tremor, essential - ICD9: 333.1, ICD10: G25.0 Notes trouble with several treatment, recommend checking back with neurology - CONSULT TO NEUROLOGY - CONSULT TO PHYSICAL THERAPY 3. Asthma, unspecified asthma severity, unspecified whether complicated, unspecified whether persistent - ICD9: 493.90, ICD10: J45.909 Stable, currently controlled, continue to monitor. Check PFT this year - SPIROMETRY WITH DILATOR IF OBSTRUCTED 4. Generalized weakness - ICD9: 780.79, ICD10: R53.1 Notes transportation problem - CONSULT TO PHYSICAL THERAPY 5. Need for community resource - ICD9: V49.89, ICD10: Z78.9 - PRIMARY CARE SOCIAL WORK CONSULT 6. Essential hypertension - ICD9: 401.9, ICD10: I10 At ULN, continue current treatment for now. Stable, continue to monitor. 7. Mixed hyperlipidemia - ICD9: 272.2, ICD10: E78.2 Notes taking fish oil 2G/day OTC 8. Tremor of hands and face - ICD9: 781.0, ICD10: R25.1 Ricardo Benedict APRN.CNS Medical Decision Making: Problems: Moderate: 2+ stable chronic illnesses Data: Unique test(s) ordered: 3+ Risk: Moderate: Drug management Medical Decision Making Level: 4 - Moderate documented in this encounter [facility] documented as of this encounter (statuses as of 06/10/2021) [facility]2017 History of Past illness Narrative* Problem Noted Date Resolved Date Acute pain of left shoulder 05/13/201605/01 DM type 2 with diabetic peripheral neuropathy 12/07/2014 Acute gastritis without mention of hemorrhage 05/23/2019 Bursitis of left shoulder 02/16/20112011 Impingement syndrome of right shoulder 1 07/02/2011 Calcific tendinitis of right shoulder 01/02/2011 07/02/2011 Bipolar affective disorder 09/12/200911/18 Overview: depression at this point; no recent manic episodes; noted flare up ofr auditory hallucinations Bipolar I disorder, single manic episode 006 04/21/2017 NEUROPATHY IN DIABETES 11/05/2005 5 Depressive disorder, not elsewhere classified 05/23/2019 documented as of this encounter (statuses as of 08/09/2021) [facility] History of Past illness Narrative* Problem Noted Date Resolved Date Acute pain of left shoulder 05/13/201605/01 DM type 2 with diabetic peripheral neuropathy 12/07/2014 Acute gastritis without mention of hemorrhage 05/23/2019 Bursitis of left shoulder 02/16/20112011 Impingement syndrome of right shoulder 1 07/02/2011 Calcific tendinitis of right shoulder 01/02/2011 07/02/2011 Bipolar affective disorder 09/12/200911/18 Overview: depression at this point; no recent manic episodes; noted flare up ofr auditory hallucinations Bipolar I disorder, single manic episode 006 04/21/2017 NEUROPATHY IN DIABETES 11/05/2005 5 Depressive disorder, not elsewhere classified 05/23/2019 documented as of this encounter (statuses as of 09/17/2021) [facility] History of Past illness Narrative* Problem Noted Date Resolved Date Acute pain of left shoulder 05/13/201605/01 DM type 2 with diabetic peripheral neuropathy 12/07/2014 Acute gastritis without mention of hemorrhage 05/23/2019 Bursitis of left shoulder 02/16/20112011 Impingement syndrome of right shoulder 1 07/02/2011 Calcific tendinitis of right shoulder 01/02/2011 07/02/2011 Bipolar affective disorder 09/12/200911/18 Overview: depression at this point; no recent manic episodes; noted flare up ofr auditory hallucinations Bipolar I disorder, single manic episode 006 04/21/2017 NEUROPATHY IN DIABETES 11/05/2005 5 Depressive disorder, not elsewhere classified 05/23/2019 documented as of this encounter (statuses as of 10/10/2021) [facility] History of Past illness Narrative* Problem Noted Date Resolved Date Acute pain of left shoulder 05/13/201605/01 DM type 2 with diabetic peripheral neuropathy 12/07/2014 Acute gastritis without mention of hemorrhage 05/23/2019 Bursitis of left shoulder 02/16/20112011 Impingement syndrome of right shoulder 1 07/02/2011 Calcific tendinitis of right shoulder 01/02/2011 07/02/2011 Bipolar affective disorder 09/12/200911/18 Overview: depression at this point; no recent manic episodes; noted flare up ofr auditory hallucinations Bipolar I disorder, single manic episode 006 04/21/2017 NEUROPATHY IN DIABETES 11/05/2005 5 Depressive disorder, not elsewhere classified 05/23/2019 documented as of this encounter (statuses as of 11/28/2021) [facility] History of Past illness Narrative* Problem Noted Date Resolved Date Acute pain of left shoulder 05/13/201605/01 DM type 2 with diabetic peripheral neuropathy 12/07/2014 Acute gastritis without mention of hemorrhage 05/23/2019 Bursitis of left shoulder 02/16/20112011 Impingement syndrome of right shoulder 1 07/02/2011 Calcific tendinitis of right shoulder 01/02/2011 07/02/2011 Bipolar affective disorder 09/12/200911/18 Overview: depression at this point; no recent manic episodes; noted flare up ofr auditory hallucinations Bipolar I disorder, single manic episode 006 04/21/2017 NEUROPATHY IN DIABETES 11/05/2005 5 Depressive disorder, not elsewhere classified 05/23/2019 documented as of this encounter (statuses as of 12/09/2021) [facility]2017 History of Past illness Narrative* Problem Noted Date Resolved Date Acute pain of left shoulder 05/13/201605/01 DM type 2 with diabetic peripheral neuropathy 12/07/2014 Acute gastritis without mention of hemorrhage 05/23/2019 Bursitis of left shoulder 02/16/20112011 Impingement syndrome of right shoulder 1 07/02/2011 Calcific tendinitis of right shoulder 01/02/2011 07/02/2011 Bipolar affective disorder 09/12/200911/18 Overview: depression at this point; no recent manic episodes; noted flare up ofr auditory hallucinations Bipolar I disorder, single manic episode 006 04/21/2017 NEUROPATHY IN DIABETES 11/05/2005 5 Depressive disorder, not elsewhere classified 05/23/2019 documented as of this encounter (statuses as of 01/13/2022) [facility] History of Past illness Narrative* Problem Noted Date Resolved Date Acute pain of left shoulder 05/13/201605/01 DM type 2 with diabetic peripheral neuropathy 12/07/2014 Acute gastritis without mention of hemorrhage 05/23/2019 Bursitis of left shoulder 02/16/20112011 Impingement syndrome of right shoulder 1 07/02/2011 Calcific tendinitis of right shoulder 01/02/2011 07/02/2011 Bipolar affective disorder 09/12/200911/18 Overview: depression at this point; no recent manic episodes; noted flare up ofr auditory hallucinations Bipolar I disorder, single manic episode 006 04/21/2017 NEUROPATHY IN DIABETES 11/05/2005 5 Depressive disorder, not elsewhere classified 05/23/2019 documented as of this encounter (statuses as of 03/07/2022) [facility] History of Past illness Narrative* Problem Noted Date Resolved Date Acute pain of left shoulder 05/13/201605/01 DM type 2 with diabetic peripheral neuropathy 12/07/2014 Acute gastritis without mention of hemorrhage 05/23/2019 Bursitis of left shoulder 02/16/20112011 Impingement syndrome of right shoulder 1 07/02/2011 Calcific tendinitis of right shoulder 01/02/2011 07/02/2011 Bipolar affective disorder 09/12/200911/18 Overview: depression at this point; no recent manic episodes; noted flare up ofr auditory hallucinations Bipolar I disorder, single manic episode 006 04/21/2017 NEUROPATHY IN DIABETES 11/05/2005 5 Depressive disorder, not elsewhere classified 05/23/2019 documented as of this encounter (statuses as of 03/12/2022) [facility] History of Past illness Narrative* Problem Noted Date Resolved Date Acute pain of left shoulder 05/13/201605/01 DM type 2 with diabetic peripheral neuropathy 12/07/2014 Acute gastritis without mention of hemorrhage 05/23/2019 Bursitis of left shoulder 02/16/20112011 Impingement syndrome of right shoulder 1 07/02/2011 Calcific tendinitis of right shoulder 01/02/2011 07/02/2011 Bipolar affective disorder 09/12/200911/18 Overview: depression at this point; no recent manic episodes; noted flare up ofr auditory hallucinations Bipolar I disorder, single manic episode 006 04/21/2017 NEUROPATHY IN DIABETES 11/05/2005 5 Depressive disorder, not elsewhere classified 05/23/2019 documented as of this encounter (statuses as of 03/17/2022) [facility] History of Past illness Narrative* Problem Noted Date Resolved Date Acute pain of left shoulder 05/13/201605/01 DM type 2 with diabetic peripheral neuropathy 12/07/2014 Acute gastritis without mention of hemorrhage 05/23/2019 Bursitis of left shoulder 02/16/20112011 Impingement syndrome of right shoulder 1 07/02/2011 Calcific tendinitis of right shoulder 01/02/2011 07/02/2011 Bipolar affective disorder 09/12/200911/18 Overview: depression at this point; no recent manic episodes; noted flare up ofr auditory hallucinations Bipolar I disorder, single manic episode 006 04/21/2017 NEUROPATHY IN DIABETES 11/05/2005 5 Depressive disorder, not elsewhere classified 05/23/2019 documented as of this encounter (statuses as of 04/04/2022) [facility] History of Past illness Narrative* Problem Noted Date Resolved Date Acute pain of left shoulder 05/13/201605/01 DM type 2 with diabetic peripheral neuropathy 12/07/2014 Acute gastritis without mention of hemorrhage 05/23/2019 Bursitis of left shoulder 02/16/20112011 Impingement syndrome of right shoulder 1 07/02/2011 Calcific tendinitis of right shoulder 01/02/2011 07/02/2011 Bipolar affective disorder 09/12/200911/18 Overview: depression at this point; no recent manic episodes; noted flare up ofr auditory hallucinations Bipolar I disorder, single manic episode 006 04/21/2017 NEUROPATHY IN DIABETES 11/05/2005 5 Depressive disorder, not elsewhere classified 05/23/2019 documented as of this encounter (statuses as of 04/10/2022) [facility] History of Past illness Narrative* Problem Noted Date Resolved Date Acute pain of left shoulder 05/13/201605/01 DM type 2 with diabetic peripheral neuropathy 12/07/2014 Acute gastritis without mention of hemorrhage 05/23/2019 Bursitis of left shoulder 02/16/20112011 Impingement syndrome of right shoulder 1 07/02/2011 Calcific tendinitis of right shoulder 01/02/2011 07/02/2011 Bipolar affective disorder 09/12/200911/18 Overview: depression at this point; no recent manic episodes; noted flare up ofr auditory hallucinations Bipolar I disorder, single manic episode 006 04/21/2017 NEUROPATHY IN DIABETES 11/05/2005 5 Depressive disorder, not elsewhere classified 05/23/2019 documented as of this encounter (statuses as of 04/29/2022) [facility] History of Past illness Narrative* Problem Noted Date Resolved Date Acute pain of left shoulder 05/13/201605/01 DM type 2 with diabetic peripheral neuropathy 12/07/2014 Acute gastritis without mention of hemorrhage 05/23/2019 Bursitis of left shoulder 02/16/20112011 Impingement syndrome of right shoulder 1 07/02/2011 Calcific tendinitis of right shoulder 01/02/2011 07/02/2011 Bipolar affective disorder 09/12/200911/18 Overview: depression at this point; no recent manic episodes; noted flare up ofr auditory hallucinations Bipolar I disorder, single manic episode 006 04/21/2017 NEUROPATHY IN DIABETES 11/05/2005 5 Depressive disorder, not elsewhere classified 05/23/2019 documented as of this encounter (statuses as of 05/28/2022) [facility] History of Past illness Narrative* Problem Noted Date Resolved Date Acute pain of left shoulder 05/13/201605/01 DM type 2 with diabetic peripheral neuropathy 12/07/2014 Acute gastritis without mention of hemorrhage 05/23/2019 Bursitis of left shoulder 02/16/20112011 Impingement syndrome of right shoulder 1 07/02/2011 Calcific tendinitis of right shoulder 01/02/2011 07/02/2011 Bipolar affective disorder 09/12/200911/18 Overview: depression at this point; no recent manic episodes; noted flare up ofr auditory hallucinations Bipolar I disorder, single manic episode 006 04/21/2017 NEUROPATHY IN DIABETES 11/05/2005 5 Depressive disorder, not elsewhere classified 05/23/2019 documented as of this encounter (statuses as of 08/15/2022) [facility] History of Past illness Narrative* Problem Noted Date Resolved Date Acute pain of left shoulder 05/13/201605/01 DM type 2 with diabetic peripheral neuropathy 12/07/2014 Acute gastritis without mention of hemorrhage 05/23/2019 Bursitis of left shoulder 02/16/20112011 Impingement syndrome of right shoulder 1 07/02/2011 Calcific tendinitis of right shoulder 01/02/2011 07/02/2011 Bipolar affective disorder 09/12/200911/18 Overview: depression at this point; no recent manic episodes; noted flare up ofr auditory hallucinations Bipolar I disorder, single manic episode 006 04/21/2017 NEUROPATHY IN DIABETES 11/05/2005 5 Depressive disorder, not elsewhere classified 05/23/2019 documented as of this encounter (statuses as of 08/15/2022) [facility] History of Past illness Narrative* Problem Noted Date Resolved Date Acute pain of left shoulder 05/13/201605/01 DM type 2 with diabetic peripheral neuropathy 12/07/2014 Acute gastritis without mention of hemorrhage 05/23/2019 Bursitis of left shoulder 02/16/20112011 Impingement syndrome of right shoulder 1 07/02/2011 Calcific tendinitis of right shoulder 01/02/2011 07/02/2011 Bipolar affective disorder 09/12/200911/18 Overview: depression at this point; no recent manic episodes; noted flare up ofr auditory hallucinations Bipolar I disorder, single manic episode 006 04/21/2017 NEUROPATHY IN DIABETES 11/05/2005 5 Depressive disorder, not elsewhere classified 05/23/2019 documented as of this encounter (statuses as of 08/20/2022) [facility] History of Past illness Narrative* Problem Noted Date Resolved Date Acute pain of left shoulder 05/13/201605/01 DM type 2 with diabetic peripheral neuropathy 12/07/2014 Acute gastritis without mention of hemorrhage 05/23/2019 Bursitis of left shoulder 02/16/20112011 Impingement syndrome of right shoulder 1 07/02/2011 Calcific tendinitis of right shoulder 01/02/2011 07/02/2011 Bipolar affective disorder 09/12/200911/18 Overview: depression at this point; no recent manic episodes; noted flare up ofr auditory hallucinations Bipolar I disorder, single manic episode 006 04/21/2017 NEUROPATHY IN DIABETES 11/05/2005 5 Depressive disorder, not elsewhere classified 05/23/2019 documented as of this encounter (statuses as of 08/22/2022) [facility] History of Past illness Narrative* Problem Noted Date Resolved Date Acute pain of left shoulder 05/13/201605/01 DM type 2 with diabetic peripheral neuropathy 12/07/2014 Acute gastritis without mention of hemorrhage 05/23/2019 Bursitis of left shoulder 02/16/20112011 Impingement syndrome of right shoulder 1 07/02/2011 Calcific tendinitis of right shoulder 01/02/2011 07/02/2011 Bipolar affective disorder 09/12/200911/18 Overview: depression at this point; no recent manic episodes; noted flare up ofr auditory hallucinations Bipolar I disorder, single manic episode 006 04/21/2017 NEUROPATHY IN DIABETES 11/05/2005 5 Depressive disorder, not elsewhere classified 05/23/2019 documented as of this encounter (statuses as of 08/23/2022) [facility] History of Past illness Narrative* Problem Noted Date Resolved Date Acute pain of left shoulder 05/13/201605/01 DM type 2 with diabetic peripheral neuropathy 12/07/2014 Acute gastritis without mention of hemorrhage 05/23/2019 Bursitis of left shoulder 02/16/20112011 Impingement syndrome of right shoulder 1 07/02/2011 Calcific tendinitis of right shoulder 01/02/2011 07/02/2011 Bipolar affective disorder 09/12/200911/18 Overview: depression at this point; no recent manic episodes; noted flare up ofr auditory hallucinations Bipolar I disorder, single manic episode 006 04/21/2017 NEUROPATHY IN DIABETES 11/05/2005 5 Depressive disorder, not elsewhere classified 05/23/2019 documented as of this encounter (statuses as of 08/26/2022) [facility]2017 History of Past illness Narrative* Problem Noted Date Resolved Date Acute pain of left shoulder 05/13/201605/01 DM type 2 with diabetic peripheral neuropathy 12/07/2014 Acute gastritis without mention of hemorrhage 05/23/2019 Bursitis of left shoulder 02/16/20112011 Impingement syndrome of right shoulder 1 07/02/2011 Calcific tendinitis of right shoulder 01/02/2011 07/02/2011 Bipolar affective disorder 09/12/200911/18 Overview: depression at this point; no recent manic episodes; noted flare up ofr auditory hallucinations Bipolar I disorder, single manic episode 006 04/21/2017 NEUROPATHY IN DIABETES 11/05/2005 5 Depressive disorder, not elsewhere classified 05/23/2019 documented as of this encounter (statuses as of 08/27/2022) [facility] History of Past illness Narrative* Problem Noted Date Diagnosed Date Resolved Date Acute pain of left shoulder 05/13/2016 05/23/2019 DM type 2 with diabetic peripheral neuropathy 12/17/19 13 12/07/2014 Acute gastritis without mention of hemorrhage 01/07/20 12 05/23/2019 Bursitis of left shoulder 02/16/2011 Impingement syndrome of right shoulder 01/02/2011 07/02/2011 Calcific tendinitis of right shoulder 01/02/2011 07/02/2011 Bipolar affective disorder 09/12/2009 0 11/18/2018 Overview: depression at this point; no recent manic episodes; noted flare up ofr auditory hallucinations Bipolar I disorder, single manic episode 11/05/2005 04/21/2017 NEUROPATHY IN DIABETES 11/05/200512/07 Depressive disorder, not elsewhere classified 11/06/19 06 05/23/2019 documented as of this encounter (statuses as of 09/18/2022) [facility] History of Past illness Narrative* Problem Noted Date Diagnosed Date Resolved Date Acute pain of left shoulder 05/13/2016 05/23/2019 DM type 2 with diabetic peripheral neuropathy 12/17/19 13 12/07/2014 Acute gastritis without mention of hemorrhage 01/07/20 12 05/23/2019 Bursitis of left shoulder 02/16/2011 Impingement syndrome of right shoulder 01/02/2011 07/02/2011 Calcific tendinitis of right shoulder 01/02/2011 07/02/2011 Bipolar affective disorder 09/12/2009 0 11/18/2018 Overview: depression at this point; no recent manic episodes; noted flare up ofr auditory hallucinations Bipolar I disorder, single manic episode 11/05/2005 04/21/2017 NEUROPATHY IN DIABETES 11/05/200512/07 Depressive disorder, not elsewhere classified 11/06/19 06 05/23/2019 documented as of this encounter (statuses as of 10/30/2022) [facility] History of Past illness Narrative* Problem Noted Date Diagnosed Date Resolved Date Acute pain of left shoulder 05/13/2016 05/23/2019 DM type 2 with diabetic peripheral neuropathy 12/17/19 13 12/07/2014 Acute gastritis without mention of hemorrhage 01/07/20 12 05/23/2019 Bursitis of left shoulder 02/16/2011 Impingement syndrome of right shoulder 01/02/2011 07/02/2011 Calcific tendinitis of right shoulder 01/02/2011 07/02/2011 Bipolar affective disorder 09/12/2009 0 11/18/2018 Overview: depression at this point; no recent manic episodes; noted flare up ofr auditory hallucinations Bipolar I disorder, single manic episode 11/05/2005 04/21/2017 NEUROPATHY IN DIABETES 11/05/200512/07 Depressive disorder, not elsewhere classified 11/06/19 06 05/23/2019 documented as of this encounter (statuses as of 10/30/2022) [facility] History of Past illness Narrative* Problem Noted Date Diagnosed Date Resolved Date Acute pain of left shoulder 05/13/2016 05/23/2019 DM type 2 with diabetic peripheral neuropathy 12/17/19 13 12/07/2014 Acute gastritis without mention of hemorrhage 01/07/20 12 05/23/2019 Bursitis of left shoulder 02/16/2011 Impingement syndrome of right shoulder 01/02/2011 07/02/2011 Calcific tendinitis of right shoulder 01/02/2011 07/02/2011 Bipolar affective disorder 09/12/2009 0 11/18/2018 Overview: depression at this point; no recent manic episodes; noted flare up ofr auditory hallucinations Bipolar I disorder, single manic episode 11/05/2005 04/21/2017 NEUROPATHY IN DIABETES 11/05/200512/07 Depressive disorder, not elsewhere classified 11/06/19 06 05/23/2019 documented as of this encounter (statuses as of 12/26/2022) [facility] History of Past illness Narrative* Problem Noted Date Diagnosed Date Resolved Date Acute pain of left shoulder 05/13/2016 05/23/2019 DM type 2 with diabetic peripheral neuropathy 12/17/19 13 12/07/2014 Acute gastritis without mention of hemorrhage 01/07/20 12 05/23/2019 Bursitis of left shoulder 02/16/2011 Impingement syndrome of right shoulder 01/02/2011 07/02/2011 Calcific tendinitis of right shoulder 01/02/2011 07/02/2011 Bipolar affective disorder 09/12/2009 0 11/18/2018 Overview: depression at this point; no recent manic episodes; noted flare up ofr auditory hallucinations Bipolar I disorder, single manic episode 11/05/2005 04/21/2017 NEUROPATHY IN DIABETES 11/05/200512/07 Depressive disorder, not elsewhere classified 11/06/19 06 05/23/2019 documented as of this encounter (statuses as of 12/26/2022) [facility] History of Past illness Narrative* Problem Noted Date Diagnosed Date Resolved Date Acute pain of left shoulder 05/13/2016 05/23/2019 DM type 2 with diabetic peripheral neuropathy 12/17/19 13 12/07/2014 Acute gastritis without mention of hemorrhage 01/07/20 12 05/23/2019 Bursitis of left shoulder 02/16/2011 Impingement syndrome of right shoulder 01/02/2011 07/02/2011 Calcific tendinitis of right shoulder 01/02/2011 07/02/2011 Bipolar affective disorder 09/12/2009 0 11/18/2018 Overview: depression at this point; no recent manic episodes; noted flare up ofr auditory hallucinations Bipolar I disorder, single manic episode 11/05/2005 04/21/2017 NEUROPATHY IN DIABETES 11/05/200512/07 Depressive disorder, not elsewhere classified 11/06/19 06 05/23/2019 documented as of this encounter (statuses as of 12/29/2022) [facility] History of Past illness Narrative* Problem Noted Date Diagnosed Date Resolved Date Acute pain of left shoulder 05/13/2016 05/23/2019 DM type 2 with diabetic peripheral neuropathy 12/17/19 13 12/07/2014 Acute gastritis without mention of hemorrhage 01/07/20 12 05/23/2019 Bursitis of left shoulder 02/16/2011 Impingement syndrome of right shoulder 01/02/2011 07/02/2011 Calcific tendinitis of right shoulder 01/02/2011 07/02/2011 Bipolar affective disorder 09/12/2009 0 11/18/2018 Overview: depression at this point; no recent manic episodes; noted flare up ofr auditory hallucinations Bipolar I disorder, single manic episode 11/05/2005 04/21/2017 NEUROPATHY IN DIABETES 11/05/200512/07 Depressive disorder, not elsewhere classified 11/06/19 06 05/23/2019 documented as of this encounter (statuses as of 01/06/2023) [facility] note* Diagnosis Type 2 diabetes mellitus with diabetic neuropathy, with long-term current use of insulin (HCC)- Primary Tremor, essential Essential and other specified forms of tremor Asthma, unspecified asthma severity, unspecified whether complicated, unspecified whether persistent Generalized weakness Other malaise and fatigue Need for community resource Essential hypertension Unspecified essential hypertension Mixed hyperlipidemia Tremor of hands and face Essential and other specified forms of tremor [facility] Diagnosis Tremor- Primary Abnormal involuntary movements documented in this encounter [facility] note* Diagnosis Hyperkeratosis- Primary Acquired keratoderma [facility] Diagnosis Tremor- Primary Abnormal involuntary movements documented in this encounter [facility] note* Diagnosis Encounter for screening mammogram for breast cancer [facility] Diagnosis Type 2 diabetes mellitus with diabetic neuropathy, with long-term current use of insulin (HCC)- Primary Tremor, essential Essential and other specified forms of tremor Essential hypertension Unspecified essential hypertension Mixed hyperlipidemia Vitamin D deficiency Unspecified vitamin D deficiency Proteinuria, unspecified type Macroalbuminuric diabetic nephropathy (HCC) Type II or unspecified type diabetes mellitus with renal manifestations, not stated as uncontrolled [facility] Diagnosis Type 2 diabetes mellitus with diabetic neuropathy, with long-term current use of insulin (HCC) Tremor- Primary Abnormal involuntary movements [facility] Diagnosis Essential hypertension Unspecified essential hypertension Dysuria Type 2 diabetes mellitus with diabetic neuropathy, with long-term current use of insulin ([facility]) [facility] Diagnosis Tremor- Primary Abnormal involuntary movements Transient cerebral ischemia, unspecified type Facial weakness [facility] Diagnosis Controlled type 2 diabetes mellitus with diabetic neuropathy, with long-term current use of insulin (HCC)- Primary Callus Corns and callosities Soft tissue mass Disorders of soft tissue, unspecified [facility] Diagnosis Type 2 diabetes mellitus with diabetic neuropathy, with long-term current use of insulin (HCC)- Primary Diabetes mellitus with insulin therapy (HCC) Type II or unspecified type diabetes mellitus without mention of complication, not stated as uncontrolled Fine motor impairment Other specified conditions influencing health status Generalized weakness Other malaise and fatigue TIA (transient ischemic attack) Unspecified transient cerebral ischemia Tremor, essential Essential and other specified forms of tremor Unspecified severe protein-calorie malnutrition (HCC) Class 3 severe obesity due to excess calories with serious comorbidity and body mass index (BMI) of 40.0 to 44.9 in adult (HCC) Platelets decreased (HCC) Thrombocytopenia, unspecified Primary hypertension Unspecified essential hypertension Mixed hyperlipidemia [facility] Diagnosis Mixed hyperlipidemia [facility] Diagnosis Type 2 diabetes mellitus with diabetic neuropathy, with long-term current use of insulin (HCC)- Primary Mixed hyperlipidemia Tremor, essential Essential and other specified forms of tremor Primary hypertension Unspecified essential hypertension Class 3 severe obesity due to excess calories with body mass index (BMI) of 40.0 to 44.9 in adult, unspecified whether serious comorbidity present (HCC) [facility] Diagnosis Type 2 diabetes mellitus with diabetic neuropathy, with long-term current use of insulin (HCC)- Primary documented in this encounter [facility] note* Diagnosis Type 2 diabetes mellitus with diabetic neuropathy, with long-term current use of insulin (HCC)- Primary Hypoglycemia Hypoglycemia, unspecified documented in this encounter [facility] note* Diagnosis Type 2 diabetes mellitus with diabetic neuropathy, with long-term current use of insulin (HCC) documented in this encounter [facility] note* Diagnosis Encounter for screening mammogram for breast cancer documented in this encounter [facility] for referral (narrative)* Diagnostic Procedure Only (Routine) - Pending Review Specialty Diagnoses / Procedures Referred By Dave sanchez Referred To Contact [facility] Diagnoses Encounter for screening mammogram for breast cancer Procedures FORD SCREENING SCREENING MAMMOGRAPHY BI 2-VIEW BREAST INC Sagrario Boogie MD [address] [place] [address] [facility] [address] [place] [address] Referral ID Status Reason Start Date Expiration Date Visits Requested Visits Authorized [id number] Pending Review Auto-Generat ed Referral 01/08/2022 02/07/2023 1 1 [facility] for referral (narrative)* Diagnostic Procedure Only (Routine) - Pending Review Specialty Diagnoses / Procedures Referred By Dave sanchez Referred To Contact [facility] Diagnoses Encounter for screening mammogram for breast cancer Procedures FORD SCREENING SCREENING MAMMOGRAPHY BI 2-VIEW BREAST INC Sagrario Boogie MD [address] [place] [address] [facility] [address] [employer] [place] [address] Referral ID Status Reason Start Date Expiration Date Visits Requested Visits Authorized [id number] Pending Review Auto-Generat ed Referral 12/31/2022 01/30/2024 1 1 [facility] Reason for Referral Specialty Diagnoses / Procedures Referred By Dave sanchez Referred To Contact [facility] Diagnoses Tremor, essential Type 2 diabetes mellitus with diabetic neuropathy, with long-term current use of insulin (HCC) Generalized weakness Procedures CONSULT TO PHYSICAL THERAPY PHYSICAL THERAPY EVALUATION HIGH COMPLEX 45 MINS Ricardo Benedict, BUTTON TUFTER.MACHINE BINDER STRIPPER [address] [place] [address] [facility] [place] [address] [place] [address] Referral ID Status Reason Start Date Expiration Date Visits Requested Visits Authorized [id number] Authorized PCP Requested Referral Auto-Generate d Referral 06/10/2021 06/10/2022 99 99 Specialty Diagnoses / Procedures Referred By Contac t Referred To Contact [facility] Diagnoses Asthma, unspecified asthma severity, unspecified whether complicated, unspecified whether persistent Procedures SPIROMETRY WITH DILATOR IF OBSTRUCTED BRNCDILAT RSPSE SPMTRY PRE&POST-BRNCDILAT ADMN Ricardo Benedict, BUTTON TUFTER.MACHINE BINDER STRIPPER [address] [place] [address] [facility] [place] [address] [place] [address] Referral ID Status Reason Start Date Expiration Date Visits Requested Visits Authorized [id number] Authorized Auto-Generat ed Referral 06/10/2021 07/10/2022 1 1 Specialty Diagnoses / Procedures Referred By Contac t Referred To Contact Neurology Diagnoses Tremor, essential Procedures CONSULT TO NEUROLOGY OFFICE/OUTPATIENT [facility] 60-74 MINUTES Ricardo Benedict, BUTTON TUFTER.MACHINE BINDER STRIPPER [address] [place] [address] Referral ID Status Reason Start Date Expiration Date Visits Requested Visits Authorized [id number] Authorized PCP Requested Referral 06/10/2021 06/10/2022 1 1 Specialty Diagnoses / Procedures Referred By Contac t Referred To Contact Neurology Diagnoses Tremor Procedures CONSULT TO NEUROLOGY OFFICE/OUTPATIENT [facility] 60-74 MINUTES Faith Raygoza, BUTTON TUFTER.ASSEMBLING INSPECTOR [address] [place] [address] Referral ID Status Reason Start Date Expiration Date Visits Requested Visits Authorized [id number] Authorized PCP Requested Referral 08/14/2022 08/14/2023 1 1 Specialty Diagnoses / Procedures Referred By Contac t Referred To Contact MR IMAGING Diagnoses Transient cerebral ischemia, unspecified type Procedures MRI BRAIN WO IVCON MRI BRAIN BRAIN STEM W/O CONTRAST MATERIAL JoeChapin pérezisten, BUTTON TUFTER.ASSEMBLING INSPECTOR [address] [place] [address] Mr Imaging Referral ID Status Reason Start Date Expiration Date Visits Requested Visits Authorized [id number] Authorized Auto-Generat ed Referral 08/14/2022 09/13/2023 1 1 Specialty Diagnoses / Procedures Referred By Contac t Referred To Contact MR IMAGING Diagnoses Callus Soft tissue mass Procedures MRI FOOT/TOES WO/W IVCON RIGHT MRI LOWER EXTREM OTH/THN JT W/O & W/CONTR MATR Marianela Shearer [address] [place] [address] Mr Imaging Referral ID Status Reason Start Date Expiration Date Visits Requested Visits Authorized [id number] Authorized Auto-Generat ed Referral 08/15/2022 09/14/2023 1 1 Specialty Diagnoses / Procedures Referred By Contac t Referred To Contact XR IMAGING Diagnoses Callus Soft tissue mass Procedures XR FOOT GENERAL 3V AP/LAT/OBL RIGHT RADEX FOOT COMPLETE MINIMUM 3 VIEWS Marianela Shearer [address] [place] [address] Xr Imaging Referral ID Status Reason Start Date Expiration Date V isits Requested Visits Authorized [id number] Closed Auto-Generate d Referral 08/15/2022 09/14/2023 1 1 Summary Purpose Family History No Family History Records Found Advance Directives No Advanced Directives Records Found Additional Source Comments Source Comments (unrecognize d section and content) In the event this informatio n is protected by the Federal Confidentiality of Alcohol and Drug Abuse Patient Records regulations: The Federal rules restrict any use of the information to criminally investigate or prosecute any alcohol or drug abuse patient.[facility] the event this information is protected by the Federal Confidentiality of Alcohol and Drug Abuse Patient Records regulations: The Federal rules restrict any use of the information to criminally investigate or prosecute any alcohol or drug abuse patient.[facility] the event this information is protected by the Federal Confidentiality of Alcohol and Drug Abuse Patient Records regulations: The Federal rules restrict any use of the information to criminally investigate or prosecute any alcohol or drug abuse patient.[facility] the event this information is protected by the Federal Confidentiality of Alcohol and Drug Abuse Patient Records regulations: The Federal rules restrict any use of the information to criminally investigate or prosecute any alcohol or drug abuse patient.[facility] the event this information is protected by the Federal Confidentiality of Alcohol and Drug Abuse Patient Records regulations: The Federal rules restrict any use of the information to criminally investigate or prosecute any alcohol or drug abuse patient.[facility] the event this information is protected by the Federal Confidentiality of Alcohol and Drug Abuse Patient Records regulations: The Federal rules restrict any use of the information to criminally investigate or prosecute any alcohol or drug abuse patient.[facility] the event this information is protected by the Federal Confidentiality of Alcohol and Drug Abuse Patient Records regulations: The Federal rules restrict any use of the information to criminally investigate or prosecute any alcohol or drug abuse patient.[facility] the event this information is protected by the Federal Confidentiality of Alcohol and Drug Abuse Patient Records regulations: The Federal rules restrict any use of the information to criminally investigate or prosecute any alcohol or drug abuse patient.[facility] Center[facility] the event this information is protected by the Federal Confidentiality of Alcohol and Drug Abuse Patient Records regulations: The Federal rules restrict any use of the information to criminally investigate or prosecute any alcohol or drug abuse patient.[facility] the event this information is protected by the Federal Confidentiality of Alcohol and Drug Abuse Patient Records regulations: The Federal rules restrict any use of the information to criminally investigate or prosecute any alcohol or drug abuse patient.[facility] Center[facility] the event this information is protected by the Federal Confidentiality of Alcohol and Drug Abuse Patient Records regulations: The Federal rules restrict any use of the information to criminally investigate or prosecute any alcohol or drug abuse patient.[facility] Center[facility] the event this information is protected by the Federal Confidentiality of Alcohol and Drug Abuse Patient Records regulations: The Federal rules restrict any use of the information to criminally investigate or prosecute any alcohol or drug abuse patient.[facility] CenterIn the event this information is protected by the Federal Confidentiality of Alcohol and Drug Abuse Patient Records regulations: The Federal rules restrict any use of the information to criminally investigate or prosecute any alcohol or drug abuse patient.[facility] Center[facility] the event this information is protected by the Federal Confidentiality of Alcohol and Drug Abuse Patient Records regulations: The Federal rules restrict any use of the information to criminally investigate or prosecute any alcohol or drug abuse patient.[facility] Center[facility] the event this information is protected by the Federal Confidentiality of Alcohol and Drug Abuse Patient Records regulations: The Federal rules restrict any use of the information to criminally investigate or prosecute any alcohol or drug abuse patient.[facility] CenterIn the event this information is protected by the Federal Confidentiality of Alcohol and Drug Abuse Patient Records regulations: The Federal rules restrict any use of the information to criminally investigate or prosecute any alcohol or drug abuse patient.[facility] CenterIn the event this information is protected by the Federal Confidentiality of Alcohol and Drug Abuse Patient Records regulations: The Federal rules restrict any use of the information to criminally investigate or prosecute any alcohol or drug abuse patient.[facility] CenterIn the event this information is protected by the Federal Confidentiality of Alcohol and Drug Abuse Patient Records regulations: The Federal rules restrict any use of the information to criminally investigate or prosecute any alcohol or drug abuse patient.[facility] CenterIn the event this information is protected by the Federal Confidentiality of Alcohol and Drug Abuse Patient Records regulations: The Federal rules restrict any use of the information to criminally investigate or prosecute any alcohol or drug abuse patient.[facility] CenterIn the event this information is protected by the Federal Confidentiality of Alcohol and Drug Abuse Patient Records regulations: The Federal rules restrict any use of the information to criminally investigate or prosecute any alcohol or drug abuse patient.[facility] CenterIn the event this information is protected by the Federal Confidentiality of Alcohol and Drug Abuse Patient Records regulations: The Federal rules restrict any use of the information to criminally investigate or prosecute any alcohol or drug abuse patient.[facility] CenterIn the event this information is protected by the Federal Confidentiality of Alcohol and Drug Abuse Patient Records regulations: The Federal rules restrict any use of the information to criminally investigate or prosecute any alcohol or drug abuse patient.[facility] CenterIn the event this information is protected by the Federal Confidentiality of Alcohol and Drug Abuse Patient Records regulations: The Federal rules restrict any use of the information to criminally investigate or prosecute any alcohol or drug abuse patient.[facility] CenterIn the event this information is protected by the Federal Confidentiality of Alcohol and Drug Abuse Patient Records regulations: The Federal rules restrict any use of the information to criminally investigate or prosecute any alcohol or drug abuse patient.[facility] CenterIn the event this information is protected by the Federal Confidentiality of Alcohol and Drug Abuse Patient Records regulations: The Federal rules restrict any use of the information to criminally investigate or prosecute any alcohol or drug abuse patient.[facility] CenterIn the event this information is protected by the Federal Confidentiality of Alcohol and Drug Abuse Patient Records regulations: The Federal rules restrict any use of the information to criminally investigate or prosecute any alcohol or drug abuse patient.[facility] CenterIn the event this information is protected by the Federal Confidentiality of Alcohol and Drug Abuse Patient Records regulations: The Federal rules restrict any use of the information to criminally investigate or prosecute any alcohol or drug abuse patient.[facility] CenterIn the event this information is protected by the Federal Confidentiality of Alcohol and Drug Abuse Patient Records regulations: The Federal rules restrict any use of the information to criminally investigate or prosecute any alcohol or drug abuse patient.[facility] Reason for Visit (unrecogniz ed section and content) Reason Comments Tremor hands, chin and some times legs Specialty Diagnoses / Procedures Referred By Dave t Referred To Contact Neurology Diagnoses Tremor, essential Procedures CONSULT TO NEUROLOGY OFFICE/OUTPATIENT NEW HIGH MDM 60-74 MINUTES Ricardo Benedict APRN.MACHINE BINDER STRIPPER [address] [place] [address] Referral ID Status Reason Start Date Expiration Date V isits Requested Visits Authorized [id number] Closed PCP Requested Referral 06/10/2021 06/10/2022 1 1 Reason Comments Established Patient Callus Reason Onset Date Comments Refill Request 10/10/2021 Reason Comments Established Patient 3 month follow up tr emors Reason Comments Patient Update Reason Comments Refill Request Reason Comments Med Change Request Reason Comments F/U 6 months Reason Comments Follow Up Reason Onset Date Comments Refill Request Refill Request 04/29/2022 NEW [facility] ORDER: SEE RX NOTES Reason Onset Date Comments Population Health Navigation Outreach 05/28/2022 [facility] Reason Comments Follow Up 4 Month F/U Reason Comments Established Patient Wart Reason Comments Medication Problem Reason Comments Recheck neuro visit for poss ible stroke Reason Comments walker DME Reason Onset Date Comments Refill Request 08/26/2022 Reason Comments 8 month follow up Reason Comments receipt of fax Reason Comments Low Blood Sugar Reason Comments low blood sugars Reason Comments Results Care Teams (unrecognized sec tion and content) Brake Repairer Hydraulic Relationship Specialty Start Date End Date Sagrario Mosqueda MD [address] [place], [place] [id number] PCP - General 11/24/05 Susie Em RPh [address] [place], [place] [id number] Pharmacist Pharmacy 01/13/20 Brake Repairer Hydraulic Relationship Specialty Start Date End Date Sagrario Mosqueda MD [address] [place], [place] [id number] PCP - General 11/24/05 [facility] [address] [facility] [place] [address] Pharmacist Pharmacy 01/13/20 Brake Repairer Hydraulic Relationship Specialty Start Date End Date Sagrario Mosqueda MD [address] [facility] [place] [address] PCP - General 11/24/05 [facility] [address] [facility] [place] [address] Pharmacist Pharmacy 01/13/20 Brake Repairer Hydraulic Relationship Specialty Start Date End Date Sagrario Mosqueda MD [address] [facility] [place] [address] PCP - General 11/24/05 AmolSusie, [facility] [address] [facility] [place] [address] Pharmacist Pharmacy 01/13/20 Brake Repairer Hydraulic Relationship Specialty Start Date End Date Sagrario Mosqueda MD [address] [facility] [place] [address] PCP - General 11/24/05 [facility] [address] [facility] [place] [address] Pharmacist Pharmacy 01/13/20 Brake Repairer Hydraulic Relationship Specialty Start Date End Date Sagrario Mosqueda MD [address] [facility] [place] [address] PCP - General 11/24/05 [facility] [address] [facility] [place] [address] Pharmacist Pharmacy 01/13/20 Brake Repairer Hydraulic Relationship Specialty Start Date End Date Sagrario Mosqueda MD [address] [facility] [place] [address] PCP - General 11/24/05 Susie Em, [facility] [address] [facility] [place] [address] Pharmacist Pharmacy 01/13/20 Brake Repairer Hydraulic Relationship Specialty Start Date End Date Sagrario Mosqueda MD [address] [facility] [place] [address] PCP - General 11/24/05 Susie Em, [facility] [address] [facility] [place] [address] Pharmacist Pharmacy 01/13/20 Brake Repairer Hydraulic Relationship Specialty Start Date End Date Sagrario Mosqueda MD [address] [facility] [place] [address] PCP - General 11/24/05 Susie Em, [facility] [address] [facility] [place] [address] Pharmacist Pharmacy 01/13/20 Brake Repairer Hydraulic Relationship Specialty Start Date End Date Sagrario Mosqueda MD [address] [facility] [place] [address] PCP - General 11/24/05 [facility] [address] [facility] [place] [address] Pharmacist Pharmacy 01/13/20 Brake Repairer Hydraulic Relationship Specialty Start Date End Date Sagrario Mosqueda MD [address] [facility] [place] [address] PCP - General 11/24/05 [facility], [facility] [address] [facility] [place] [address] Pharmacist Pharmacy 01/13/20 Brake Repairer Hydraulic Relationship Specialty Start Date End Date Sagrario Mosqueda MD [address] [facility] [place] [address] PCP - General 11/24/05 Susie Em, [facility] [address] [facility] [place] [address] Pharmacist Pharmacy 01/13/20 Brake Repairer Hydraulic Relationship Specialty Start Date End Date Sagrario Mosqueda MD [address] [facility] [place] [address] PCP - General 11/24/05 [facility] [address] [facility] [place] [address] Pharmacist Pharmacy 01/13/20 Brake Repairer Hydraulic Relationship Specialty Start Date End Date Sagrario Mosqueda MD [address] [facility] [place] [address] PCP - General 11/24/05 AmolSusie, [facility] [address] [facility] [place] [address] Pharmacist Pharmacy 01/13/20 Brake Repairer Hydraulic Relationship Specialty Start Date End Date Sagrario Mosqueda MD [address] [place] [address] PCP - General 11/24/05 AmolSusie, [facility] [address] [facility] [place] [address] Pharmacist Pharmacy 01/13/20 Brake Repairer Hydraulic Relationship Specialty Start Date End Date Sagrario Mosqueda MD [address] [facility] [place] [address] PCP - General 11/24/05 AmolSusie, [facility] [address] [facility] [place] [address] Pharmacist Pharmacy 01/13/20 Brake Repairer Hydraulic Relationship Specialty Start Date End Date Sagrario Mosqueda MD [address] [place] [address] PCP - General 11/24/05 [facility] [address] [place] [address] Pharmacist Pharmacy 01/13/20 Brake Repairer Hydraulic Relationship Specialty Start Date End Date Sagrario Mosqueda MD [address] [place] [address] PCP - General 11/24/05 [facility]Sus[facility] [address] [place] [address] Pharmacist Pharmacy 01/13/20 Brake Repairer Hydraulic Relationship Specialty Start Date End Date Sagrario Mosqueda MD [address] [place] [address] PCP - General 11/24/05 [facility]Sus[facility] [address] [place] [address] Pharmacist Pharmacy 01/13/20 INFORMATION SOURCE (unrecogn ized section and content) FOR RECORDS PERTAINING TO PATIENTS WHO ARE OR HAVE BEEN ENROLLED IN A CHEMICAL DEPENDENCY/SUBSTANCEABUSE PROGRAM, SOME INFORMATION MAY BE OMITTED. This clinical summary was aggregated from multiple sources. Caution should be exercised in using it in the provision of clinical care. This summary normalizes information from multiple sources, and as a consequence, information in this document may materially change the coding, format and clinical context of patient data. In addition, data may be omitted in some cases. CLINICAL DECISIONS SHOULD BE BASED ON THE PRIMARY CLINICAL RECORDS. [employer] [facility]. provides no warranty or guarantee of the accuracy or completeness of information in this document.
--- NOTE | 2023-03-31 20:29 | ECHOCS_ITS ---
Reason For Study: Afib/Flutter Procedure This was a 2D Doppler, Color Flow transthoracic echocardiogram. The study was technically difficult. Contrast injection was performed. Exam performed portable in patient room. Left Ventricle Normal LV size. Mild concentric left ventricular hypertrophy. Left ventricular systolic function is normal. The estimated ejection fraction is 60 %. No evidence for diastolic dysfunction. No regional wall motion abnormalities noted. Right Ventricle Normal RV size. Normal systolic function. Atria Normal left atrium. Normal right atrium. Bubble contrast study negative for right to left interatrial shunt. Mitral Valve Moderate mitral annular calcification. Mild diffuse mitral valve thickening. The mitral valve chordae are thickened and/or calcified. Calcified redundant chord. There is no mitral valve stenosis. Trivial mitral valve insufficiency. Tricuspid Valve Normal tricuspid valve. Trivial tricuspid valve insufficiency. Unable to estimate RV systolic pressure due to insufficient tricuspid regurgitant envelope. Aortic Valve Trisinus/trileaflet aortic valve. Mild focal aortic valve calcification. Pulmonic Valve Normal pulmonic valve. Trivial pulmonic valve insufficiency. Great Vessels Normal aortic root. Pericardium/Pleural No pericardial effusion. Medication Diluted definity 2ml given slow IV push to enhance endocardial definition. Performed a rapid injection of agitated mix of 9 cc saline and 1cc air to assess for atrial septal defect. MMode/2D Measurements & Calculations LVIDd: 4.7 cm IVSd: 1.2 cm LVOT diam: 2.0 cm LVIDs: 3.7 cm LVPWd: 1.1 cm RVDd: 4.1 cm FS: 22.6 % LVOT area: 3.2 cm2 Ao root diam: 3.7 cm LAV(MOD-bp): 55.3 ml LVAd ap4: 38.3 cm2 LA dimension: 3.8 cm LAV(MOD-bp) Indexed: 27.4 ml/m2 LVLd ap4: 8.5 cm LAV(MOD-sp2): 57.0 ml EDV(MOD-sp4): 138.6 ml LAV(MOD-sp4): 53.5 ml EDV(sp4-el): 145.8 ml LVAs ap4: 21.5 cm2 LVLs ap4: 6.5 cm ESV(MOD-sp4): 59.8 ml ESV(sp4-el): 60.6 ml EF(MOD-sp4): 56.9 % EF(sp4-el): 58.5 % SV(MOD-sp4): 78.8 ml SV(sp4-el): 85.2 ml LA A4 area: 20.0 cm2 TAPSE: 2.2 cm Time Measurements MV dec time: 0.16 sec Doppler Measurements & Calculations MV E max castro: 92.6 cm/sec Lat Peak E' Castro: 8.2 cm/sec Med Peak E' Castro: 7.9 cm/sec MV A max castro: 145.5 cm/sec E/E' lat: 11.3 E/E' med: 11.8 MV E/A: 0.64 MV V2 max: 168.0 cm/sec MV P1/2t max castro: 96.9 cm/sec Ao V2 max: 191.8 cm/sec MV max P.3 mmHg MV P1/2t: 56.3 msec Ao max P.7 mmHg MV V2 mean: 90.4 cm/sec MV mean P.0 mmHg MV dec slope: 504.5 cm/sec2 SHINE(V,D): 1.9 cm2 MV V2 VTI: 26.6 cm MVA(P1/2t): 3.9 cm2 LV V1 max: 112.6 cm/sec PA V2 max: 186.3 cm/sec LV V1 max P.1 mmHg PA V2 mean: 112.1 cm/sec ECHO/Echo Complete W/ Contrast Interpretation Summary The estimated ejection fraction is 60 %. No evidence for diastolic dysfunction. Mild concentric left ventricular hypertrophy. Moderate mitral annular calcification. The mitral valve chordae are thickened and/or calcified. Mild focal aortic valve calcification. No previous echocardiogram to compare Contrast injection was performed. Ordering Physician: Noa Lao Referring Physician: Cynthia Mosqueda M.D. Performed By: Wellington Hensley RCS
[2023-03-31] MEDS: Amiodarone 150 MG in Dextrose 5%-Water (100mL Bag) 100 ML 600 MG IV BOLUS (21:15)
[2023-03-31 21:28] LABS: International Normalized Ratio 1.2; Prothrombin Time (Protime)PT. 14.7 SECONDS (11.7-14.9)
[2023-03-31 21:29] LABS: Partial Thromboplast Time 33.1 Seconds (24.1-36.2)
[2023-03-31] MEDS: Amiodarone 360 MG in Dextrose 5% Viaflo Bag 192.8 ML 33.2999999999999972 MG CONT INF (21:30)
[2023-03-31] MEDS: cloNIDine HCl 0.1 MG Tablet 0.299999999999999989 MG PO (21:50)
[2023-03-31 21:58] LABS: Bedside Glucose 131 mg/dL (74-106)
[2023-03-31] MEDS: 0.9% Saline Lock 10 ML Syringe IV (22:06)
[2023-03-31] MEDS: Heparin Injection (Vial) 5,000 UNIT/ML VIAL 8000 UNIT IV (22:07)
[2023-03-31] MEDS: HEPARIN/D5w 25,000 UNITS 25,000 UNITS/250 ML IV.SOLN. 15 UNITS CONT INF (22:08)
[2023-03-31 22:30] LABS: Thyroid Stim Hormone (TSH) < 0.01 uIU/mL (0.358-3.74)
[2023-03-31 22:49] LABS: Troponin-I HS 50 pg/mL (3.0-54.0)
[2023-03-31] MEDS: Nystatin Powder 15gm Bottle 1 APPLIC TOPICAL (22:50)
[2023-03-31] MEDS: MELATONIN 3 MG TABLET PO (23:33)
[2023-03-31] MEDS: Mag Hydrox/Al Hydrox/Simeth 30 ML UDC PO (23:33)
[2023-03-31] MEDS: amLODIPine 10 MG Tablet PO (23:33)
[2023-04-01] VITALS (27 sets, daily range): BP systolic 137–210; BP diastolic 55–137; PULSE 93–122; RESP 16–24; TEMP 36.5–37.2; O2SAT 93–100; BMI 39.4
[2023-04-01 00:36] LABS: Troponin-I HS 44 pg/mL (3.0-54.0)
[2023-04-01] MEDS: cycloBENZAPRine HCl 10 MG Tablet PO (03:09)
[2023-04-01] MEDS: DiphenhydrAMINE 25 MG Capsule PO ×2 (03:09→16:22)
[2023-04-01] MEDS: hydrALAZINE 20 MG/ML Vial 10 MG IV ×2 (03:09→10:35)
[2023-04-01] MEDS: 0.9% Saline Lock 10 ML Syringe IV ×3 (03:13→10:36)
[2023-04-01] MEDS: Amiodarone 360 MG in Dextrose 5% Viaflo Bag 192.8 ML 16.6999999999999993 MG CONT INF (03:43)
[2023-04-01] MEDS: Ondansetron 4 MG/2 ML Vial IV (03:46)
[2023-04-01 04:29] LABS: Absolute Lymphocyte Count 1.44 X10^3/uL (0.83-4.51); Absolute Neutrophil Count 6.5 X10^3/uL (2.0-7.7); Basophil# 0.03 X10^3/uL; Basophil% 0.3 % (0-1); Eosinophils% 1.1 % (0-5); Hematocrit 38.5 % (37-47); Hemoglobin 11.7 g/dL (12.0-15.0); Lymphocyte # 1.44 X10^3/ul (0.83-4.51); Lymphocyte % 15.5 % (19-41); Mean Corp Hgb Conc 30.4 g/dL (32-36); Mean Corpuscular Hgb 25.2 pg (27.0-32.0); Mean Platelet Vol. 10.1 fl (6.2-12.0); Monocyte# 1.18 X10^3/uL; Monocyte% 12.7 % (0-10); NRBC Flagged by Analyzer 0 % (0-5); Neutrophil # 6.52 X10^3/uL (2.7-7.7); Neutrophil % 70.1 % (47-70); Platelet Count 235 K/mm3 (150-450); RBC Distribution Width CV 14.6 % (11.6-14.6); RBC Distribution Width SD 44.2 fl (35.1-43.9); Red Blood Count 4.64 M/mm3 (4.2-5.4); White Blood Count 9.3 K/mm3 (4.4-11.0)
[2023-04-01 04:50] LABS: Partial Thromboplast Time 130.4 Seconds (24.1-36.2)
[2023-04-01 04:51] LABS: Troponin-I HS 43 pg/mL (3.0-54.0)
[2023-04-01 05:21] LABS: ALB/GLOB Ratio 0.6 RATIO (0.9-2.4); AST(SGOT) 25 U/L (15-37); Alanine Aminotransfer ALT/SGPT 25 U/L (13-56); Albumin, Serum 2.6 g/dL (3.2-5.0); Alkaline Phosphatase 94 U/L (45-117); Anion Gap 11 (5-15); BUN 28 mg/dL (7-18); BUN/Creat Ratio 25.2 RATIO (10-20); Calcium,Total 9.1 mg/dL (8.5-10.1); Chloride 110 mmol/L (98-107); Creatinine, Serum 1.11 mg/dL (0.55-1.02); EST Glomerular Filtration Rate 52 mL/min (>60); Est Glom Filt Rate - Afr Amer 63 mL/min (>60); Glucose 155 mg/dL (74-106); Magnesium 1.7 mg/dL (1.6-2.6); Phosphorus 3.5 mg/dL (2.5-4.9); Potassium 3.9 mmol/L (3.5-5.1); Protein, Total 6.6 g/dL (6.4-8.2); Sodium Level 138 mmol/L (136-145)
[2023-04-01] MEDS: Nystatin Powder 15gm Bottle 1 APPLIC TOPICAL ×3 (06:21→19:45)
[2023-04-01] MEDS: Pantoprazole Sodium 40 MG Tablet PO (06:25)
[2023-04-01 06:39] LABS: Bedside Glucose 166 mg/dL (74-106)
--- NOTE | 2023-04-01 10:15 | CASEMGMT ---
RN ELOISE Face to Face with patient for initial transition planning/care coordination assessment. RN CM introduced self and role at [facility]. Patient lying in bed, alert and oriented. Patient willing to participate in assessment and is able to answer all questions appropriately. Care providers, pharmacy, and demographics verified. Patient wishes to discharge home but willing to go to SNF or RU if needed, will monitor progress with therapy. Patient states she has no further needs or concerns at this time. CM to follow for discharge planning needs that may arise. PCP: Panda Specialists: Neuro, [facility]; Cinda, urologist; Jesica, podriatrist Preferred Pharmacy: [facility] Insurance: [employer] Prescription Benefit: yes Living Will/HPOA: yes, son Kemal Devlin LNOK: son Living Arrangements: Patient lives alone in a first floor apartment with no steps to enter the home. Patient states she was independent at home for self care, receives MOM's Meals Transportation: friend, son DME/HHC: Patient has shower chair, cane, rollator, lift chair, grab bars, hospital bed at home. No previous SNF of [facility]. Patient is active with [facility] with CM Nieves Booker. Disposition Plan: TBD anticipate SNF/RU vs C, will monitor progress with therapy. Jessica GALINDO, RN, CM
[2023-04-01] MEDS: amLODIPine 10 MG Tablet PO (10:34)
[2023-04-01] MEDS: Aspirin E.C. 81 MG Tablet PO (10:35)
[2023-04-01] MEDS: proCHLORPERazine 10 MG/2 ML Vial 5 MG IV (10:35)
[2023-04-01] MEDS: cloNIDine HCl 0.1 MG Tablet 0.299999999999999989 MG PO ×2 (10:35→19:44)
[2023-04-01] MEDS: Insulin Lispro 100 UNIT/ML INSULN.PEN SC ×2 (11:15→16:22)
[2023-04-01 11:36] LABS: Bedside Glucose 177 mg/dL (74-106)
--- NOTE | 2023-04-01 11:47 | CASEMGMT ---
Per RN CM patient has [facility] services and her dependency case manager is Nieves Booker. SW called [facility] and notified the coverage line of patient's admission. Patient has a Life Alert button and Moms meals- 7 per week. Patient is also approved for 6 hours a week of aide services, however they have not been able to find an aide. Gayla Castro [employer] INVENT[employer] CONTROL EXECUTIVE SUSIE
--- NOTE | 2023-04-01 12:14 | PN.HOSP_ITS ---
Subjective Subjective Did not get much sleep last night because of her tremors. She says that these do appear to be at baseline. Denies any palpitations today however she is a little bit tachycardic on the monitor still Objective Data Objective Data Vital Signs: Vital Signs Temp Pulse Resp BP Pulse Ox O2 Del Method 97.7 F L 114 H 21 H 188/84 H 97 Room Air 04/01/23 11:25 04/01/23 12:00 04/01/23 12:00 04/01/23 12:00 04/01/23 12:00 04/01/23 12:00 Oxygen Delivery Method Room Air Weight: 222 lb 10.67 oz Body Mass Index (BMI) 39.4 Intake & Output: Intake and Output for Last 24 Hours 03/31/23 04/01/23 04/02/23 03:59 03:59 03:59 Intake Total 1423.00 / 1427.73 1060.08 / 1060.08 Output Total 500 / 500 Balance 1423.00 / 1427.73 560.08 / 560.08 Lab / Micro Data 04/01/23 04:21 04/01/23 04:21 Labs: Laboratory Results - last 24 hr 03/31/23 10:20: TSH < 0.01 L 03/31/23 21:09: PT 14.7, INR 1.2, APTT 33.1 03/31/23 21:36: POC Glucose 131 H 03/31/23 22:22: Troponin I High Sens 50 04/01/23 00:02: Troponin I High Sens 44 04/01/23 04:21: WBC 9.3, RBC 4.64, Hgb 11.7 L, Hct 38.5, MCV 83.0, MCH 25.2 L, MCHC 30.4 L, RDW Std Deviation 44.2 H, RDW Coeff of Rico 14.6, Plt Count 235, MPV 10.1, Immature Gran % (Auto) 0.300, Neut % (Auto) 70.1 H, Lymph % (Auto) 15.5 L, [place] % (Auto) 12.7 H, Eos % (Auto) 1.1, Baso % (Auto) 0.3, Absolute Neuts (auto) 6.5, Absolute Lymphs (auto) 1.44, Nucleated RBC % 0, APTT 130.4 H*, Sodium 138, Potassium 3.9, Chloride 110 H, Carbon Dioxide 17.0 L, Anion Gap 11, BUN 28 H, Creatinine 1.11 H, Estim Creat Clear Calc 57.30, Est GFR (MDRD) Af Amer 63, Est GFR (MDRD) Non-Af 52 L, BUN/Creatinine Ratio 25.2 H, Glucose 155 H, Calcium 9.1, Phosphorus 3.5, Magnesium 1.7, Total Bilirubin 0.60, AST 25, ALT 25, Alkaline Phosphatase 94, Troponin I High Sens 43, Total Protein 6.6, Albumin 2.6 L, Globulin 4.0, Albumin/Globulin Ratio 0.6 L 04/01/23 06:20: POC Glucose 166 H 04/01/23 11:10: POC Glucose 177 H Radiography Diagnostic Testing: Radiology Impression Hip/Pelvis X-Ray 03/31/23 10:36 IMPRESSION: Degenerative changes of the right hip joint. Narrowing of the symphysis pubis. Electronically Signed: Thor Escalona MD at 12:14 EST , Knee X-Ray 03/31/23 10:36 IMPRESSION: Degenerative arthrosis. Electronically Signed: Thor Escalona MD at 12:15 EST , Chest X-Ray 03/31/23 13:38 IMPRESSION: Normal x-ray examination of the chest. Electronically Signed: Thor Escalona MD at 14:34 EST , Rhythm Strip Rhythm Strip: Sinus Rhythm Rate: 90 Ectopy: None Physical Exam Narrative General: Alert, Oriented x3, Cooperative, No apparent distress, tremor HEENT: Atraumatic, PERRLA, EOMI, Normocephalic Oral: Moist Mucosa Neck: Supple, No JVD Lungs: Diminished, Normal air movement, No rhonchi, No wheeze, No rales Cardiovascular: Tachycardic, Regular Rhythm, Normal S1, Normal S2, No murmurs Abdomen: Soft, Non Tender, Non-Distended, No Hepato-splenomegaly Extremities: No edema, Capillary Refill Less than 3 Seconds Skin: No rashes, No breakdown Musculoskeletal: No Tenderness to Palpation of Joints or Extremities Neurological: Resting tremor with masked facies and rigidity Psych/Mental Status: Flat Assessment & Plan Assessment/Plan (1) Multiple falls: (2) Contusion of lower back: (3) Atrial tachycardia: (4) Elevated serum creatinine: PLAN: Plan 1. Atrial tachycardia/HTN/HLD ? On admission it appears to be flutter with a 2-1 block ? Adenosine was given in the ED department which identified the flutter waves ? Continue with the heparin drip, echo is pending ? TSH yesterday morning was significantly depressed, will obtain T3 and T4 ? Appreciate cardiology's assistance ? Continue with IV fluids ? Can resume her home blood pressure medications, will monitor make adjustments as necessary ? She is intolerant of statins 2. Parkinson's disease with debility and falls ? She is not on any Parkinson's medication secondary to significant side effects including rash and anaphylaxis ? PT/OT ? Case management consult for discharge planning ? Continue with Flexeril and Benadryl which she says usually allows her to get some sleep but she was not able to sleep today ? Will give her nighttime dose of trazodone to see if this assists 3. DM2 ? We will hold her home medications ? Sliding scale insulin ? Accu-Cheks ACHS ? We will monitor make adjustments as necessary 4. Overactive bladder ? We will hold her oxybutynin as this is likely contributing to her falls ? Will discontinue on discharge 5. JOSIE ? She does not tolerate a CPAP mask 6. Anxiety/depression ? She does not take any medications as she has significant allergies to multiple other medications recommend continued outpatient follow-up DVT: Heparin drip Charges/Coding Visit Charges Inpatient E&M: 58869 Subs Hosp L2
[2023-04-01] MEDS: Amiodarone 200 MG Tablet PO ×2 (12:26→19:44)
[2023-04-01] MEDS: Metoprolol Tartrate 25 MG Tablet PO ×2 (12:26→19:44)
[2023-04-01 13:02] LABS: Free T3 3.1 pg/mL (2.18-3.98)
[2023-04-01] MEDS: 0.9% Normal Saline (1000mL) 1,000 ML 100 ML IV ×2 (13:11→22:15)
--- NOTE | 2023-04-01 13:21 | CASEMGMT ---
Patient said [facility] was going to set her up with [place] for transport. [facility] asked for patient's wheelchair measurements. Patient said she accidentally gave the wrong measurements for her wheelchair to [facility]. Patient reported her wheelchair is bigger than it actually is. SW asked patient if she told [facility] the correct measurements. Patient said she did. LETICIA will follow up with Nieves Booker, patient's case resource manager with [facility]. Gayla RICHARDS
[2023-04-01 13:31] LABS: Partial Thromboplast Time 49.8 Seconds (24.1-36.2)
--- NOTE | 2023-04-01 13:42 | CON.PCM.CA_ITS ---
Documented by User: Marisol CROWLEY, PA 04/01/23 14:16 Assessment & Plan Assessment/Plan (1) Atrial flutter: (2) HTN (hypertension): QUALIFIERS: Hypertension type: essential hypertension Qualified Code(s): I10 - Essential (primary) hypertension (3) Hyperlipidemia: PLAN: Plan * Pt did convert to NSR on IV amiodarone. Will switch to PO. Will start at 200 mg BID for 7 days then decrease to 200 mg a day. Will start Metoprolol 25 mg BID. It is noted that she had a rash to labetolol, will monitor here in hospital on metoprolol. * She is noted to be hyperthyroid, question if this is contributing to her Atrial flutter. * With the frequency of pt falls, feel that she is a high risk to start anticoagulation. Recommend that she start an ASA. Can consider and EP
--- NOTE | 2023-04-01 13:42 | PCM.CONS.C ---
Documented by User: Marisol CROWLEY, KEO 04/01/23 14:16 Assessment & Plan Assessment/Plan (1) Atrial flutter: (2) HTN (hypertension): QUALIFIERS: Hypertension type: essential hypertension Qualified Code(s): I10 - Essential (primary) hypertension (3) Hyperlipidemia: PLAN: Plan Pt did convert to NSR on IV amiodarone. Will switch to PO. Will start at 200 mg BID for 7 days then decrease to 200 mg a day. Will start Metoprolol 25 mg BID. It is noted that she had a rash to labetolol, will monitor here in hospital on metoprolol. She is noted to be hyperthyroid, question if this is contributing to her Atrial flutter. With the frequency of pt falls, feel that she is a high risk to start anticoagulation. Recommend that she start an ASA. Can consider and EP referral for possible ablation or to be considered for a watchman. This can be done on OP basis. For now will monitor BP readings, it is noted that it is elevated. Question if her tremors are contributing to the elevated BP reading with the automatic cuff. Echocardiogram is pending HPI Consult Data Date of Consult: 04/01/23 HPI Narrative HPI Narrative: LIVIER VILLAFANA, is a 67 F who presented to [facility] ER with weakness and multiple falls this week. She has parkinsonian tremors and is allergic to medication for this. She does live alone and is on disability. She does have a hx of HTN, HL, DM. She was getting ready to be d/c back home when she was noted to be in atrial flutter with 2:1 block. She was given 6 mg adenosine and flutter waves were noted. She is not sure if she has ever been diagnosed with Afib in the past. Currently during her examine she has a IRENE. She currently does not have any chest pain/ SOB. She is not aware of her atrial fib. She did convert to NSR overnight. [facility] Medical History Anxiety Asthma Depression Diabetes History of left heart catheterization Hyperlipidemia Hypertension Non-smoker Tremor Home Medications amlodipine 10 mg tablet 1 tab PO DAILY BLOOD PRESSURE 05/27/17 [History Last Taken 05/27/17 16:00] clonidine HCl 0.3 mg tablet 1 tab PO BID BLOOD PRESSURE 05/27/17 [History Last Taken Unknown] cyclobenzaprine 10 mg tablet 10 mg PO QHS PRN LEG CRAMPS 05/27/17 [History Last Taken Unknown] insulin degludec 200 unit/mL (3 mL) subcutaneous pen (Tresiba FlexTouch U-200 insulin) 56 unit subcut QHS DIABETES 09/21/20 [History Last Taken Unknown] aspirin 81 mg tablet,delayed release (Adult Low Dose Aspirin) 81 mg PO DAILY HEART HEALTH 03/31/23 [History Last Taken Unknown] diclofenac sodium 75 mg tablet,delayed release 75 mg PO .COMPLEX arthritic pain 03/31/23 [History Last Taken 03/29/23] diphenhydramine HCl 25 mg capsule (Allergy (diphenhydramine)) 50 mg PO QHS insomnia and allergies 03/31/23 [History Last Taken Unknown] ibuprofen 800 mg tablet (IBU) 800 mg PO DAILY PRN headache 03/31/23 [History Last Taken Unknown] oxybutynin chloride 15 mg tablet,extended release 24 hr 15 mg PO BID OVERACTIVE BLADDER 03/31/23 [History Last Taken Unknown] Allergy/AdvReac Type Severity Reaction Status Date / Time adhesive tape Allergy Other Verified 09/21/20 20:13 cephalexin monohydrate Allergy Other Verified 09/21/20 20:13 [From Keflex] ciprofloxacin [From Cipro] Allergy Hives Verified 09/21/20 20:13 ciprofloxacin HCl Allergy Hives Verified 09/21/20 20:13 [From Cipro] citalopram hydrobromide Allergy Unknown Verified 09/21/20 20:13 [From Celexa] clarithromycin [From Biaxin] Allergy Unknown Verified 09/21/20 20:13 codeine Allergy Unknown Verified 09/21/20 20:13 diltiazem HCl [From Cardizem] Allergy Unknown Verified 09/21/20 20:13 fluoxetine HCl [From Prozac] Allergy Unknown Verified 09/21/20 20:13 fluticasone Allergy Swelling Verified 09/21/20 20:13 [From Advair Diskus] fluticasone propionate Allergy Other Verified 09/21/20 20:13 [From Advair Diskus] hydrochlorothiazide Allergy Unknown Verified 09/21/20 20:13 [From Hyzaar] ipratropium bromide Allergy Unknown Verified 09/21/20 20:13 [From Atrovent] labetalol Allergy Rash Verified 09/21/20 20:13 lamotrigine [From Lamictal] Allergy Unknown Verified 09/21/20 20:13 latex Allergy Unknown Verified 09/21/20 20:13 liraglutide [From Victoza] Allergy Unknown Verified 09/21/20 20:13 losartan potassium Allergy Unknown Verified 09/21/20 20:13 [From Hyzaar] meloxicam [From Mobic] Allergy Other Verified 09/21/20 20:13 nitrofurantoin Allergy Hives Verified 11/18/19 13:15 [From Macrobid] nitrofurantoin Allergy Hives Verified 11/18/19 13:15 macrocrystalline [From Macrobid] Penicillins Allergy Rash Verified 09/21/20 20:13 quetiapine fumarate Allergy Unknown Verified 09/21/20 20:13 [From Seroquel] salmeterol Allergy Swelling Verified 09/21/20 20:13 [From Advair Diskus] salmeterol xinafoate Allergy Other Verified 09/21/20 20:13 [From Advair Diskus] sertraline HCl [From Zoloft] Allergy Unknown Verified 09/21/20 20:13 simvastatin [From Zocor] Allergy Unknown Verified 09/21/20 20:13 topiramate [From Topamax] Allergy Unknown Verified 09/21/20 20:13 verapamil HCl Allergy Unknown Verified 09/21/20 20:13 [From Covera-HS] zonisamide [From Zonegran] Allergy Shortness Verified 09/21/20 20:13 of breath acetaminophen [From Lortab] AdvReac Nausea Verified 09/21/20 20:13 hydrocodone bitartrate AdvReac Nausea Verified 09/21/20 20:13 [From Lortab] ramipril [From Altace] AdvReac Laryngospas Verified 09/21/20 20:13 ms sulfamethoxazole AdvReac Unknown Verified 09/21/20 20:13 [From Septra] trimethoprim [From Septra] AdvReac Unknown Verified 09/21/20 20:13 Family History other Surgical History History of bladder repair surgery History of carpal tunnel release History of cholecystectomy History of hysterectomy Social History (Updated 03/31/23 @ 21:[address] Noa Lao, DO) household members: none housing: apartment current occupational status: disabled current occupation: Patient is disabled due to Parkinson's disease Smoking Status: Never smoker alcohol intake: never substance use type: does not use ROS Constitutional Constitutional: Reports weakness; Denies chills, fatigue, fever(s) or malaise Eyes Eyes: Denies blurry vision, change in vision, double vision or loss of vision ENT HEENT: Denies dysphagia, epistaxis, hearing loss or nasal discharge Cardiovascular Cardiovascular: Reports as per HPI Respiratory/Chest Respiratory/Chest: Denies cough, dyspnea, shortness of breath at rest or shortness of breath with exertion Gastrointestinal Gastrointestinal: Denies coffee ground emesis, constipation or nausea Musculoskeletal Musculoskeletal: Reports back pain, joint pain and joint stiffness; Denies arthralgias or joint swelling Neurologic Neurologic: Reports abnormal gait and tremor(s); Denies abnormal speech, confusion, dizziness, focal weakness, syncope or tingling Physical Exam Narrative General: Alert, Oriented x3, Cooperative, No apparent distress, tremor HEENT: Atraumatic, PERRLA, EOMI, Normocephalic Oral: Moist Mucosa Neck: Supple, No JVD Lungs: Diminished, Normal air movement, No rhonchi, No wheeze, No rales Cardiovascular: Tachycardic, Regular Rhythm, Normal S1, Normal S2, No murmurs Abdomen: Soft, Non Tender, Non-Distended, No Hepato-splenomegaly Extremities: No edema, Capillary Refill Less than 3 Seconds Musculoskeletal: No Tenderness to Palpation of Joints or Extremities Neurological: Resting tremor with masked facies and rigidity Risk Stratification Risk Stratification Applicable: No Objective Data Vital Signs: Vital Signs Temp Pulse Resp BP Pulse Ox O2 Del Method 97.7 F L 101 H 16 179/88 H 100 Room Air 04/01/23 11:25 04/01/23 13:23 04/01/23 13:23 04/01/23 13:00 04/01/23 13:23 04/01/23 13:28 Oxygen Delivery Method Room Air Weight: 222 lb 10.67 oz Body Mass Index (BMI) 39.4 Intake & Output: Intake and Output for Last 24 Hours 03/30/23 03/31/23 04/01/23 23:59 23:59 23:59 Intake Total 1169.61 / 1306.26 1332.40 / 1332.40 Output Total 500 / 500 Balance 1169.61 / 1306.26 832.40 / 832.40 Lab / Micro Data 04/01/23 04:21 04/01/23 04:21 Labs: Laboratory Results - last 24 hr 03/31/23 10:20: TSH < 0.01 L 03/31/23 21:09: PT 14.7, INR 1.2, APTT 33.1 03/31/23 21:36: POC Glucose 131 H 03/31/23 22:22: Troponin I High Sens 50 04/01/23 00:02: Troponin I High Sens 44 04/01/23 04:21: WBC 9.3, RBC 4.64, Hgb 11.7 L, Hct 38.5, MCV 83.0, MCH 25.2 L, MCHC 30.4 L, RDW Std Deviation 44.2 H, RDW Coeff of Rico 14.6, Plt Count 235, MPV 10.1, Immature Gran % (Auto) 0.300, Neut % (Auto) 70.1 H, Lymph % (Auto) 15.5 L, [place] % (Auto) 12.7 H, Eos % (Auto) 1.1, Baso % (Auto) 0.3, Absolute Neuts (auto) 6.5, Absolute Lymphs (auto) 1.44, Nucleated RBC % 0, APTT 130.4 H*, Sodium 138, Potassium 3.9, Chloride 110 H, Carbon Dioxide 17.0 L, Anion Gap 11, BUN 28 H, Creatinine 1.11 H, Estim Creat Clear Calc 57.30, Est GFR (MDRD) Af Amer 63, Est GFR (MDRD) Non-Af 52 L, BUN/Creatinine Ratio 25.2 H, Glucose 155 H, Calcium 9.1, Phosphorus 3.5, Magnesium 1.7, Total Bilirubin 0.60, AST 25, ALT 25, Alkaline Phosphatase 94, Troponin I High Sens 43, Total Protein 6.6, Albumin 2.6 L, Globulin 4.0, Albumin/Globulin Ratio 0.6 L, Free T4 2.60 H, Free T3 pg/dL 3.1 04/01/23 06:20: POC Glucose 166 H 04/01/23 11:10: POC Glucose 177 H 04/01/23 13:10: APTT 49.8 H Rhythm Strip Rhythm Strip: Sinus Rhythm Rate: 90 Ectopy: None Cardiology Labs/Tests 03/31/23 21:09: PT 14.7, INR 1.2, APTT 33.1 04/01/23 04:21: WBC 9.3, RBC 4.64, Hgb 11.7 L, Hct 38.5, MCV 83.0, MCH 25.2 L, MCHC 30.4 L, Plt Count 235, MPV 10.1, Immature Gran % (Auto) 0.300, Neut % (Auto) 70.1 H, Lymph % (Auto) 15.5 L, [place] % (Auto) 12.7 H, Eos % (Auto) 1.1, Baso % (Auto) 0.3, Absolute Neuts (auto) 6.5, Nucleated RBC % 0, APTT 130.4 H*, Sodium 138, Potassium 3.9, Chloride 110 H, Carbon Dioxide 17.0 L, Anion Gap 11, BUN 28 H, Creatinine 1.11 H, Est GFR (MDRD) Af Amer 63, Est GFR (MDRD) Non-Af 52 L, BUN/Creatinine Ratio 25.2 H, Glucose 155 H, Calcium 9.1, Phosphorus 3.5, Magnesium 1.7, Total Bilirubin 0.60 04/01/23 13:10: APTT 49.8 H Rhythm: NSR ECHO: pending Radiography Diagnostic Testing: Radiology Impression Knee X-Ray 03/31/23 10:36 IMPRESSION: Degenerative arthrosis. Electronically Signed: Thor Escalona MD at 12:15 EST , Chest X-Ray 03/31/23 13:38 IMPRESSION: Normal x-ray examination of the chest. Electronically Signed: Thor Escalona MD at 14:34 EST , Documented by User: Dr. Dana Robles MD 04/01/23 17:58 Assessment & Plan Assessment/Plan (1) Atrial flutter: (2) HTN (hypertension): QUALIFIERS: Hypertension type: essential hypertension Qualified Code(s): I10 - Essential (primary) hypertension (3) Hyperlipidemia: PLAN: Plan Pt did convert to NSR on IV amiodarone. Will switch to PO. Will start at 200 mg BID for 7 days then decrease to 200 mg a day. Will start Metoprolol 25 mg BID. It is noted that she had a rash to labetolol, will monitor here in hospital on metoprolol. She is noted to be hyperthyroid, question if this is contributing to her Atrial flutter. With the frequency of pt falls, feel that she is a high risk to start anticoagulation. Recommend that she start an ASA. Can consider and EP referral for possible ablation or to be considered for a watchman. This can be done on OP basis. For now will monitor BP readings, it is noted that it is elevated. Question if her tremors are contributing to the elevated BP reading with the automatic cuff. Echocardiogram revealed ejection fraction 60% Mild concentric left ventricle hypertrophy, From cardiac standpoint we will continue to monitor and follow-up clinically. HPI Consult Data Date of Consult: 04/01/23 [facility] Medical History Anxiety Asthma Depression Diabetes History of left heart catheterization Hyperlipidemia Hypertension Non-smoker Tremor Home Medications amlodipine 10 mg tablet 1 tab PO DAILY BLOOD PRESSURE 05/27/17 [History Last Taken 05/27/17 16:00] clonidine HCl 0.3 mg tablet 1 tab PO BID BLOOD PRESSURE 05/27/17 [History Last Taken Unknown] cyclobenzaprine 10 mg tablet 10 mg PO QHS PRN LEG CRAMPS 05/27/17 [History Last Taken Unknown] insulin degludec 200 unit/mL (3 mL) subcutaneous pen (Tresiba FlexTouch U-200 insulin) 56 unit subcut QHS DIABETES 09/21/20 [History Last Taken Unknown] aspirin 81 mg tablet,delayed release (Adult Low Dose Aspirin) 81 mg PO DAILY HEART HEALTH 03/31/23 [History Last Taken Unknown] diclofenac sodium 75 mg tablet,delayed release 75 mg PO .COMPLEX arthritic pain 03/31/23 [History Last Taken 03/29/23] diphenhydramine HCl 25 mg capsule (Allergy (diphenhydramine)) 50 mg PO QHS insomnia and allergies 03/31/23 [History Last Taken Unknown] ibuprofen 800 mg tablet (IBU) 800 mg PO DAILY PRN headache 03/31/23 [History Last Taken Unknown] oxybutynin chloride 15 mg tablet,extended release 24 hr 15 mg PO BID OVERACTIVE BLADDER 03/31/23 [History Last Taken Unknown] Allergy/AdvReac Type Severity Reaction Status Date / Time adhesive tape Allergy Other Verified 09/21/20 20:13 cephalexin monohydrate Allergy Other Verified 09/21/20 20:13 [From Keflex] ciprofloxacin [From Cipro] Allergy Hives Verified 09/21/20 20:13 ciprofloxacin HCl Allergy Hives Verified 09/21/20 20:13 [From Cipro] citalopram hydrobromide Allergy Unknown Verified 09/21/20 20:13 [From Celexa] clarithromycin [From Biaxin] Allergy Unknown Verified 09/21/20 20:13 codeine Allergy Unknown Verified 09/21/20 20:13 diltiazem HCl [From Cardizem] Allergy Unknown Verified 09/21/20 20:13 fluoxetine HCl [From Prozac] Allergy Unknown Verified 09/21/20 20:13 fluticasone Allergy Swelling Verified 09/21/20 20:13 [From Advair Diskus] fluticasone propionate Allergy Other Verified 09/21/20 20:13 [From Advair Diskus] hydrochlorothiazide Allergy Unknown Verified 09/21/20 20:13 [From Hyzaar] ipratropium bromide Allergy Unknown Verified 09/21/20 20:13 [From Atrovent] labetalol Allergy Rash Verified 09/21/20 20:13 lamotrigine [From Lamictal] Allergy Unknown Verified 09/21/20 20:13 latex Allergy Unknown Verified 09/21/20 20:13 liraglutide [From Victoza] Allergy Unknown Verified 09/21/20 20:13 losartan potassium Allergy Unknown Verified 09/21/20 20:13 [From Hyzaar] meloxicam [From Mobic] Allergy Other Verified 09/21/20 20:13 nitrofurantoin Allergy Hives Verified 11/18/19 13:15 [From Macrobid] nitrofurantoin Allergy Hives Verified 11/18/19 13:15 macrocrystalline [From Macrobid] Penicillins Allergy Rash Verified 09/21/20 20:13 quetiapine fumarate Allergy Unknown Verified 09/21/20 20:13 [From Seroquel] salmeterol Allergy Swelling Verified 09/21/20 20:13 [From Advair Diskus] salmeterol xinafoate Allergy Other Verified 09/21/20 20:13 [From Advair Diskus] sertraline HCl [From Zoloft] Allergy Unknown Verified 09/21/20 20:13 simvastatin [From Zocor] Allergy Unknown Verified 09/21/20 20:13 topiramate [From Topamax] Allergy Unknown Verified 09/21/20 20:13 verapamil HCl Allergy Unknown Verified 09/21/20 20:13 [From Covera-HS] zonisamide [From Zonegran] Allergy Shortness Verified 09/21/20 20:13 of breath acetaminophen [From Lortab] AdvReac Nausea Verified 09/21/20 20:13 hydrocodone bitartrate AdvReac Nausea Verified 09/21/20 20:13 [From Lortab] ramipril [From Altace] AdvReac Laryngospas Verified 09/21/20 20:13 ms sulfamethoxazole AdvReac Unknown Verified 09/21/20 20:13 [From Septra] trimethoprim [From Septra] AdvReac Unknown Verified 09/21/20 20:13 Family History other Surgical History History of bladder repair surgery History of carpal tunnel release History of cholecystectomy History of hysterectomy Social History (Updated 03/31/23 @ 21:[address] Noa Lao DO) household members: none housing: apartment current occupational status: disabled current occupation: Patient is disabled due to Parkinson's disease Smoking Status: Never smoker alcohol intake: never substance use type: does not use Lab / Micro Data 04/01/23 04:21 04/01/23 04:21
[2023-04-01] MEDS: Heparin Injection (Vial) 5,000 UNIT/ML VIAL IV (13:49)
--- NOTE | 2023-04-01 14:42 | CASEMGMT ---
Addendum entered by Gayla Castro 04/01/23 15:38: SW declined a list of Acute Rehab Units as the only one she would want is [facility] since all of the other Acute Rehab Units are out of town. Gayla RICHARDS Original Note: Therapy recommended patient go to Acute Rehab for short term rehab. SW met with patient. Introduced self again. SW explained therapy's recommendation for Acute Rehab. Patient was agreeable to a referral being made. SW made a referral to Janny in Acute rehab. Gayla RICHARDS
[2023-04-01 16:56] LABS: Bedside Glucose 222 mg/dL (74-106)
[2023-04-01] MEDS: Methimazole 5 MG Tablet 40 MG PO (18:33)
[2023-04-01] MEDS: HEPARIN/D5w 25,000 UNITS 25,000 UNITS/250 ML IV.SOLN. 13 UNITS CONT INF (19:43)
[2023-04-01] MEDS: traZODone 50 MG Tablet PO (19:44)
[2023-04-01 20:39] LABS: Partial Thromboplast Time 52.5 Seconds (24.1-36.2)
[2023-04-02] VITALS (8 sets, daily range): BP systolic 131–161; BP diastolic 57–106; PULSE 79–105; RESP 16–18; TEMP 36.9–37.1; O2SAT 93–98; BMI 39.8
[2023-04-02 04:46] LABS: Absolute Lymphocyte Count 1.66 X10^3/uL (0.83-4.51); Absolute Neutrophil Count 3.9 X10^3/uL (2.0-7.7); Basophil# 0.04 X10^3/uL; Basophil% 0.6 % (0-1); Eosinophil# 0.25 X10^3/uL; Eosinophils% 3.6 % (0-5); Hematocrit 35.6 % (37-47); Hemoglobin 10.9 g/dL (12.0-15.0); Lymphocyte # 1.66 X10^3/ul (0.83-4.51); Lymphocyte % 23.9 % (19-41); Mean Corp Hgb Conc 30.6 g/dL (32-36); Mean Corpuscular Hgb 25.1 pg (27.0-32.0); Mean Corpuscular Volume 81.8 fL (81-99); Monocyte# 1.04 X10^3/uL; Monocyte% 14.9 % (0-10); NRBC Flagged by Analyzer 0 % (0-5); Neutrophil # 3.94 X10^3/uL (2.7-7.7); Neutrophil % 56.6 % (47-70); Platelet Count 147 K/mm3 (150-450); RBC Distribution Width CV 14.7 % (11.6-14.6); RBC Distribution Width SD 44.3 fl (35.1-43.9); Red Blood Count 4.35 M/mm3 (4.2-5.4)
[2023-04-02 05:04] LABS: Anion Gap 2 (5-15); BUN 24 mg/dL (7-18); BUN/Creat Ratio 23.5 RATIO (10-20); Calcium,Total 8.9 mg/dL (8.5-10.1); Chloride 114 mmol/L (98-107); Creatinine, Serum 1.02 mg/dL (0.55-1.02); EST Glomerular Filtration Rate 58 mL/min (>60); Est Glom Filt Rate - Afr Amer 70 mL/min (>60); Estimated Creatinine Clearance 62.71 ml/min; Glucose 140 mg/dL (74-106); Potassium 3.5 mmol/L (3.5-5.1); Sodium Level 139 mmol/L (136-145)
[2023-04-02 05:16] LABS: Partial Thromboplast Time 68.6 Seconds (24.1-36.2)
[2023-04-02] MEDS: Nystatin Powder 15gm Bottle 1 APPLIC TOPICAL ×3 (06:45→22:14)
[2023-04-02] MEDS: 0.9% Normal Saline (1000mL) 1,000 ML 100 ML IV (06:51)
[2023-04-02 07:22] LABS: Bedside Glucose 137 mg/dL (74-106)
[2023-04-02] MEDS: Pantoprazole Sodium 40 MG Tablet PO (09:33)
[2023-04-02] MEDS: Aspirin E.C. 81 MG Tablet PO (09:33)
[2023-04-02] MEDS: Metoprolol Tartrate 25 MG Tablet PO ×2 (09:33→22:15)
[2023-04-02] MEDS: Amiodarone 200 MG Tablet PO ×2 (09:33→22:00)
[2023-04-02] MEDS: cloNIDine HCl 0.1 MG Tablet 0.299999999999999989 MG PO ×2 (09:34→22:02)
[2023-04-02] MEDS: amLODIPine 10 MG Tablet PO (09:34)
[2023-04-02] MEDS: Methimazole 5 MG Tablet 40 MG PO (09:35)
--- NOTE | 2023-04-02 10:13 | PN.HOSP_ITS ---
Subjective Subjective Doing well, feels better after first dose of methimazole Objective Data Objective Data Vital Signs: Vital Signs Temp Pulse Resp BP Pulse Ox O2 Del Method 98.4 F 94 18 161/81 H 95 Room Air 04/02/23 09:30 04/02/23 09:33 04/02/23 09:30 04/02/23 09:33 04/02/23 09:30 04/02/23 09:30 Oxygen Delivery Method Room Air Weight: 224 lb 13.944 oz Body Mass Index (BMI) 39.8 Intake & Output: Intake and Output for Last 24 Hours 04/01/23 04/02/23 04/03/23 03:59 03:59 03:59 Intake Total 1423.00 / 1427.73 2374.67 / 2374.67 860 / 860 Output Total 1000 / 1000 350 / 350 Balance 1423.00 / 1427.73 1374.67 / 1374.67 510 / 510 Lab / Micro Data 04/02/23 04:18 04/02/23 04:18 Labs: Laboratory Results - last 24 hr 04/01/23 04:21: Free T4 2.60 H, Free T3 pg/dL 3.1 04/01/23 11:10: POC Glucose 177 H 04/01/23 13:10: APTT 49.8 H 04/01/23 16:20: POC Glucose 222 H 04/01/23 20:05: APTT 52.5 H 04/02/23 04:18: WBC 7.0, RBC 4.35, Hgb 10.9 L, Hct 35.6 L, MCV 81.8, MCH 25.1 L, MCHC 30.6 L, RDW Std Deviation 44.3 H, RDW Coeff of Rico 14.7 H, Plt Count 147 L, MPV 13.0 H, Immature Gran % (Auto) 0.400, Neut % (Auto) 56.6, Lymph % (Auto) 23.9, [place] % (Auto) 14.9 H, Eos % (Auto) 3.6, Baso % (Auto) 0.6, Absolute Neuts (auto) 3.9, Absolute Lymphs (auto) 1.66, Nucleated RBC % 0, APTT 68.6 H, Sodium 139, Potassium 3.5, Chloride 114 H, Carbon Dioxide 23.0, Anion Gap 2 L, BUN 24 H , Creatinine 1.02, Estim Creat Clear Calc 62.71, Est GFR (MDRD) Af Amer 70, Est GFR (MDRD) Non-Af 58 L, BUN/Creatinine Ratio 23.5 H, Glucose 140 H, Calcium 8.9 04/02/23 06:43: POC Glucose 137 H Radiography Diagnostic Testing: Radiology Impression Echocardiogram 03/31/23 20:29 Interpretation Summary The estimated ejection fraction is 60 %. No evidence for diastolic dysfunction. Mild concentric left ventricular hypertrophy. Moderate mitral annular calcification. The mitral valve chordae are thickened and/or calcified. Mild focal aortic valve calcification. No previous echocardiogram to compare Contrast injection was performed. Ordering Physician: Noa Lao Referring Physician: Cynthia Mosqueda M.D. Performed By: Wellington Hensley RCS Rhythm Strip Rhythm Strip: Sinus Rhythm Rate: 90 Ectopy: None Physical Exam Narrative General: Alert, Oriented x3, Cooperative, No apparent distress, tremor HEENT: Atraumatic, PERRLA, EOMI, Normocephalic Oral: Moist Mucosa Neck: Supple, No JVD Lungs: Diminished, Normal air movement, No rhonchi, No wheeze, No rales Cardiovascular: Tachycardic, Regular Rhythm, Normal S1, Normal S2, No murmurs Abdomen: Soft, Non Tender, Non-Distended, No Hepato-splenomegaly Extremities: No edema, Capillary Refill Less than 3 Seconds Skin: No rashes, No breakdown Musculoskeletal: No Tenderness to Palpation of Joints or Extremities Neurological: Resting tremor with masked facies and rigidity Psych/Mental Status: Flat Assessment & Plan Assessment/Plan (1) Multiple falls: (2) Contusion of lower back: (3) Atrial tachycardia: (4) Elevated serum creatinine: PLAN: Plan 1. Atrial tachycardia due to thyrotoxicosis/HTN/HLD ? On admission it appears to be flutter with a 2-1 block ? Adenosine was given in the ED department which identified the flutter waves ? Continue with the heparin drip, echo is pending ? T4 was high but T3 was normal, discussed with endocrinology they will see her in follow-up as an outpatient. Will continue with methimazole 40 mg p.o. daily for 5 days and then down to 20 mg p.o. daily with repeat lab work in 2 weeks ? Appreciate cardiology's assistance ? Continue with IV fluids ? Can resume her home blood pressure medications, will monitor make adjustments as necessary ? She is intolerant of statins 2. Parkinson's disease with debility and falls ? She is not on any Parkinson's medication secondary to significant side effects including rash and anaphylaxis ? PT/OT ? Case management consult for discharge planning ? Continue with Flexeril and Benadryl which she says usually allows her to get some sleep but she was not able to sleep today ? Will give her nighttime dose of trazodone to see if this assists 3. DM2 ? We will hold her home medications ? Sliding scale insulin ? Accu-Cheks ACHS ? We will monitor make adjustments as necessary 4. Overactive bladder ? We will hold her oxybutynin as this is likely contributing to her falls ? Will discontinue on discharge 5. JOSIE ? She does not tolerate a CPAP mask 6. Anxiety/depression ? She does not take any medications as she has significant allergies to multiple other medications recommend continued outpatient follow-up DVT: Heparin drip Charges/Coding Visit Charges Inpatient E&M: 97182 Subs Hosp L2
--- NOTE | 2023-04-02 10:21 | PN.CARD_ITS ---
<Statement entered by Dana Robles MD - 04/02/23 16:03> Pt seen & evaluated w/UDAY. I personally interviewed & exam the pt. I was involved in all aspects of pt's orders, interpretation of results & treatment Subjective Subjective Pt seen and examined. Feels better than yesterday. Having PAF on monitor. She is not aware of palpitations. Denies CP/ SOB. Objective Data Vital Signs: Vital Signs Temp Pulse Resp BP Pulse Ox O2 Del Method 98.4 F 94 18 161/81 H 95 Room Air 04/02/23 09:30 04/02/23 09:33 04/02/23 09:30 04/02/23 09:33 04/02/23 09:30 04/02/23 09:30 Oxygen Delivery Method Room Air Weight: 224 lb 13.944 oz Body Mass Index (BMI) 39.8 Intake & Output: Intake and Output for Last 24 Hours 03/31/23 04/01/23 04/02/23 23:59 23:59 23:59 Intake Total 1169.61 / 1306.26 2628.06 / 2628.06 860 / 860 Output Total 700 / 1000 650 / 650 Balance 1169.61 / 1306.26 1928.06 / 1628.06 210 / 210 Lab / Micro Data 04/02/23 04:18 04/02/23 04:18 Labs: Laboratory Results - last 24 hr 04/01/23 04:21: Free T4 2.60 H, Free T3 pg/dL 3.1 04/01/23 11:10: POC Glucose 177 H 04/01/23 13:10: APTT 49.8 H 04/01/23 16:20: POC Glucose 222 H 04/01/23 20:05: APTT 52.5 H 04/02/23 04:18: WBC 7.0, RBC 4.35, Hgb 10.9 L, Hct 35.6 L, MCV 81.8, MCH 25.1 L, MCHC 30.6 L, RDW Std Deviation 44.3 H, RDW Coeff of [place] 14.7 H, Plt Count 147 L, MPV 13.0 H, Immature Gran % (Auto) 0.400, Neut % (Auto) 56.6, Lymph % (Auto) 23.9, [place] % (Auto) 14.9 H, Eos % (Auto) 3.6, Baso % (Auto) 0.6, Absolute Neuts (auto) 3.9, Absolute Lymphs (auto) 1.66, Nucleated RBC % 0, APTT 68.6 H, Sodium 139, Potassium 3.5, Chloride 114 H, Carbon Dioxide 23.0, Anion Gap 2 L, BUN 24 H , Creatinine 1.02, Estim Creat Clear Calc 62.71, Est GFR (MDRD) Af Amer 70, Est GFR (MDRD) Non-Af 58 L, BUN/Creatinine Ratio 23.5 H, Glucose 140 H, Calcium 8.9 04/02/23 06:43: POC Glucose 137 H Rhythm Strip Rhythm Strip: Sinus Rhythm Rate: 90 Ectopy: None Cardiology Labs/Tests 04/01/23 13:10: APTT 49.8 H 04/01/23 20:05: APTT 52.5 H 04/02/23 04:18: WBC 7.0, RBC 4.35, Hgb 10.9 L, Hct 35.6 L, MCV 81.8, MCH 25.1 L, MCHC 30.6 L, Plt Count 147 L, MPV 13.0 H, Immature Gran % (Auto) 0.400, Neut % (Auto) 56.6, Lymph % (Auto) 23.9, [place] % (Auto) 14.9 H, Eos % (Auto) 3.6, Baso % (Auto) 0.6, Absolute Neuts (auto) 3.9, Nucleated RBC % 0, APTT 68.6 H, Sodium 139, Potassium 3.5, Chloride 114 H, Carbon Dioxide 23.0, Anion Gap 2 L, BUN 24 H , Creatinine 1.02, Est GFR (MDRD) Af Amer 70, Est GFR (MDRD) Non-Af 58 L, BUN/Cr eatinine Ratio 23.5 H, Glucose 140 H, Calcium 8.9 Radiography Diagnostic Testing: Radiology Impression Echocardiogram 03/31/23 20:29 Interpretation Summary The estimated ejection fraction is 60 %. No evidence for diastolic dysfunction. Mild concentric left ventricular hypertrophy. Moderate mitral annular calcification. The mitral valve chordae are thickened and/or calcified. Mild focal aortic valve calcification. No previous echocardiogram to compare Contrast injection was performed. Ordering Physician: Noa Lao Referring Physician: Cynthia Mosqueda M.D. Performed By: Wellington Hensley RCS Physical Exam Narrative General: Alert, Oriented x3, Cooperative, No apparent distress, tremor HEENT: Atraumatic, PERRLA, EOMI, Normocephalic Oral: Moist Mucosa Neck: Supple, No JVD Lungs: Diminished, Normal air movement, No rhonchi, No wheeze, No rales Cardiovascular: Regular Rhythm, Normal S1, Normal S2, 1/6 LETICIA Abdomen: Soft, Non Tender, Non-Distended, No Hepato-splenomegaly Extremities: No edema, Capillary Refill Less than 3 Seconds Musculoskeletal: No Tenderness to Palpation of Joints or Extremities Neurological: Resting tremor with masked facies and rigidity Assessment & Plan Assessment/Plan (1) Atrial flutter: (2) HTN (hypertension): QUALIFIERS: Hypertension type: essential hypertension Qualified Code(s): I10 - Essential (primary) hypertension (3) Hyperlipidemia: PLAN: Plan * Pt did convert to NSR on IV amiodarone. She is now on amiodarone 200 mg BID for 7 days then decrease to 200 mg a day. Will continue Metoprolol 25 mg BID. It is noted that she had a rash to labetolol, will monitor here in hospital on metoprolol. * She is noted to be hyperthyroid, question if this is contributing to her Atrial flutter. She has been started on Methimazole * Pt notes that her falls were just over the last 2 weeks. Since she is now being treated for her hyperthyroidism and will be going to rehab feel that it is okay to start eliquis. If there is concern about her risk of falls can reassess. * Echocardiogram revealed ejection fraction 60% Mild concentric left ventricle hypertrophy, From cardiac standpoint we will continue to monitor and follow-up clinically. Charges/Coding Visit Charges Inpatient E&M: 03602 Subs Hosp L2
[2023-04-02 11:03] LABS: Partial Thromboplast Time 36.9 Seconds (24.1-36.2)
[2023-04-02] MEDS: Insulin Lispro 100 UNIT/ML INSULN.PEN SC ×2 (11:06→16:04)
[2023-04-02] MEDS: Heparin Injection (Vial) 5,000 UNIT/ML VIAL IV (11:12)
[2023-04-02 11:26] LABS: Bedside Glucose 187 mg/dL (74-106)
--- NOTE | 2023-04-02 12:57 | CASEMGMT ---
Patient was denied for Acute Rehab, however, TCU would be able to take patient. SW met with patient. SW told patient that Inpatient Rehab cannot take her, but TCU can. Patient said she feels so much better today. Patient said she wants to go home at discharge. Patient is open to home health. SW will see how patient does with therapy today to make sure patient is safe to go home. Gayla Castro CUST[employer]ER [employer]ICE [employer]ITY OFFICER SUSIE
[2023-04-02] MEDS: 0.9% Saline Lock 10 ML Syringe IV (14:37)
[2023-04-02] MEDS: APIXABAN 5 MG TABLET PO ×2 (14:37→22:01)
--- NOTE | 2023-04-02 15:04 | CASEMGMT ---
ZENAIDA NAVAS updated by therapy that patient would like to go home but would benefit from SNF at discharge at treat today. ZENAIDA NAVAS in to discuss progress with therapy and concerns for safety at home. Patient states she had more time to think about it and is agreeable to TCU for additional therapy. Patient appreciated CM follow-up with her and caring for her safety. Patient had no further questions or concerns. ZENAIDA NAVAS updated SW regarding request for TCU.
[2023-04-02 16:47] LABS: Bedside Glucose 185 mg/dL (74-106)
[2023-04-02] MEDS: traZODone 50 MG Tablet PO (22:01)
[2023-04-02] MEDS: DiphenhydrAMINE 25 MG Capsule PO (22:13)
[2023-04-02] MEDS: cycloBENZAPRine HCl 10 MG Tablet PO (22:13)
[2023-04-02] MEDS: MELATONIN 3 MG TABLET PO (22:13)
[2023-04-02] MEDS: Acetaminophen 325 MG Tablet 650 MG PO (22:13)
[2023-04-02 22:56] LABS: Bedside Glucose 152 mg/dL (74-106)
[2023-04-03 04:00] VITALS: BP 141/53; PULSE 77; RESP 16; TEMP 36.6; O2SAT 98
[2023-04-03 06:00] VITALS: BMI 39.5
[2023-04-03] MEDS: Menthol/Lanolin/Calamine/Znox 113 GM Tube 1 APPLIC TOPICAL ×2 (06:26→08:33)
[2023-04-03] MEDS: Nystatin Powder 15gm Bottle 1 APPLIC TOPICAL (06:27)
[2023-04-03 06:49] LABS: Bedside Glucose 120 mg/dL (74-106)
[2023-04-03 07:12] VITALS: O2SAT 94
[2023-04-03 07:44] LABS: Absolute Lymphocyte Count 1.38 X10^3/uL (0.83-4.51); Absolute Neutrophil Count 3.2 X10^3/uL (2.0-7.7); Basophil# 0.03 X10^3/uL; Basophil% 0.5 % (0-1); Eosinophil# 0.28 X10^3/uL; Eosinophils% 4.9 % (0-5); Hematocrit 34.8 % (37-47); Hemoglobin 10.9 g/dL (12.0-15.0); Lymphocyte # 1.38 X10^3/ul (0.83-4.51); Lymphocyte % 23.9 % (19-41); Mean Corp Hgb Conc 31.3 g/dL (32-36); Mean Corpuscular Hgb 25.4 pg (27.0-32.0); Mean Corpuscular Volume 81.1 fL (81-99); Mean Platelet Vol. 12.3 fl (6.2-12.0); Monocyte# 0.84 X10^3/uL; Monocyte% 14.6 % (0-10); NRBC Flagged by Analyzer 0 % (0-5); Neutrophil % 55.4 % (47-70); Platelet Count 121 K/mm3 (150-450); RBC Distribution Width CV 14.9 % (11.6-14.6); RBC Distribution Width SD 43.9 fl (35.1-43.9); Red Blood Count 4.29 M/mm3 (4.2-5.4); White Blood Count 5.8 K/mm3 (4.4-11.0)
--- NOTE | 2023-04-03 08:04 | PN.CARD_ITS ---
Objective Data Vital Signs: Vital Signs Temp Pulse Resp BP Pulse Ox O2 Del Method 97.8 F 77 16 141/53 H 98 Room Air 04/03/23 04:00 04/03/23 04:00 04/03/23 04:00 04/03/23 04:00 04/03/23 04:00 04/03/23 04:00 Oxygen Delivery Method Room Air Weight: 223 lb 5.252 oz Body Mass Index (BMI) 39.5 Intake & Output: Intake and Output for Last 24 Hours 04/01/23 04/02/23 04/03/23 23:59 23:59 23:59 Intake Total 2628.06 / 2628.06 2641.92 / 2641.92 Output Total 700 / 1000 1700 / 1700 400 / 400 Balance 1928.06 / 1628.06 941.92 / 941.92 -400 / -400 Lab / Micro Data 04/03/23 06:55 04/02/23 04:18 Labs: Laboratory Results - last 24 hr 04/02/23 10:00: APTT 36.9 H 04/02/23 11:04: POC Glucose 187 H 04/02/23 16:02: POC Glucose 185 H 04/02/23 22:12: POC Glucose 152 H 04/03/23 06:30: POC Glucose 120 H 04/03/23 06:55: WBC 5.8, RBC 4.29, Hgb 10.9 L, Hct 34.8 L, MCV 81.1, MCH 25.4 L, MCHC 31.3 L, RDW Std Deviation 43.9, RDW Coeff of Rico 14.9 H, Plt Count 121 L, MPV 12.3 H, Immature Gran % (Auto) 0.700, Neut % (Auto) 55.4, Lymph % (Auto) 23.9, [place] % (Auto) 14.6 H, Eos % (Auto) 4.9, Baso % (Auto) 0.5, Absolute Neuts (auto) 3.2, Absolute Lymphs (auto) 1.38, Nucleated RBC % 0 Rhythm Strip Rhythm Strip: Sinus Rhythm Rate: 90 Ectopy: None Cardiology Labs/Tests 04/02/23 10:00: APTT 36.9 H 04/03/23 06:55: WBC 5.8, RBC 4.29, Hgb 10.9 L, Hct 34.8 L, MCV 81.1, MCH 25.4 L, MCHC 31.3 L, Plt Count 121 L, MPV 12.3 H, Immature Gran % (Auto) 0.700, Neut % (Auto) 55.4, Lymph % (Auto) 23.9, [place] % (Auto) 14.6 H, Eos % (Auto) 4.9, Baso % (Auto) 0.5, Absolute Neuts (auto) 3.2, Nucleated RBC % 0 Rhythm: Assessment & Plan Assessment/Plan (1) Atrial flutter: (2) HTN (hypertension): QUALIFIERS: Hypertension type: essential hypertension Qualified Code(s): I10 - Essential (primary) hypertension (3) Hyperlipidemia: PLAN: Plan * Pt did convert to NSR on IV amiodarone. She is now on amiodarone 200 mg BID for 7 days then decrease to 200 mg a day. Will continue Metoprolol 25 mg BID. It is noted that she had a rash to labetolol, will monitor here in hospital on metoprolol. * She is noted to be hyperthyroid, question if this is contributing to her Atrial flutter. She has been started on Methimazole * Pt notes that her falls were just over the last 2 weeks. Since she is now being treated for her hyperthyroidism and will be going to rehab feel that it is okay to start eliquis. If there is concern about her risk of falls can r eassess. * Echocardiogram revealed ejection fraction 60% Mild concentric left ventricle hypertrophy, From cardiac standpoint we will continue to monitor and follow-up clinically.
[2023-04-03 08:11] LABS: Anion Gap 3 (5-15); BUN 20 mg/dL (7-18); BUN/Creat Ratio 25.1 RATIO (10-20); Calcium,Total 9.4 mg/dL (8.5-10.1); Chloride 116 mmol/L (98-107); EST Glomerular Filtration Rate 77 mL/min (>60); Est Glom Filt Rate - Afr Amer 93 mL/min (>60); Estimated Creatinine Clearance 79.64 ml/min; Glucose 132 mg/dL (74-106); Potassium 3.6 mmol/L (3.5-5.1); Sodium Level 144 mmol/L (136-145)
[2023-04-03 08:21] VITALS: BP 159/91; PULSE 91; RESP 14; TEMP 36.9; O2SAT 92
[2023-04-03 08:28] VITALS: BP 159/91; PULSE 91
[2023-04-03] MEDS: APIXABAN 5 MG TABLET PO (08:28)
[2023-04-03] MEDS: Aspirin E.C. 81 MG Tablet PO (08:28)
[2023-04-03] MEDS: Pantoprazole Sodium 40 MG Tablet PO (08:28)
[2023-04-03] MEDS: Metoprolol Tartrate 25 MG Tablet PO (08:28)
[2023-04-03] MEDS: amLODIPine 10 MG Tablet PO (08:28)
[2023-04-03] MEDS: Methimazole 5 MG Tablet 40 MG PO (08:29)
[2023-04-03] MEDS: Amiodarone 200 MG Tablet PO (08:29)
[2023-04-03] MEDS: cloNIDine HCl 0.1 MG Tablet 0.299999999999999989 MG PO (08:29)
[2023-04-03] MEDS: Glucerna Shake 120 ML LIQUID PO ×2 (08:36→11:39)
--- NOTE | 2023-04-03 10:56 | PCM.TXEXTCAR ---
Diet Diet Order/Speech Therapy: 03/31/23 20:29 Diet: Cardiac: Calorie-Controlled Food consistency:: Regular Liquid Consistency:: Regular/Thin How many daily calories?: 1800 calorie Routine Orders/Code Status Routine Lab Work: CBC and BMP Code Status: DNRCC-A Wound(s) rt leg: Wound Type: scabbed area x2 Therapies Physical Therapy: Eval and Treat Occupational Therapy: Eval and Treat Problem/Diagnosis (1) Atrial flutter: Status: Acute Code(s): I48.92 - Unspecified atrial flutter (2) HTN (hypertension): Status: Chronic Code(s): I10 - Essential (primary) hypertension (3) Hyperlipidemia: Status: Chronic Code(s): E78.5 - Hyperlipidemia, unspecified Plan 1. Atrial tachycardia due to thyrotoxicosis/HTN/HLD ? On admission it appears to be flutter with a 2-1 block ? Adenosine was given in the ED department which identified the flutter waves ? Continue with the heparin drip, echo is pending ? T4 was high but T3 was normal, discussed with endocrinology they will see her in follow-up as an outpatient. Will continue with methimazole 40 mg p.o. daily for 5 days and then down to 20 mg p.o. daily with repeat lab work in 2 weeks ? Appreciate cardiology's assistance ? Continue with IV fluids ? Can resume her home blood pressure medications, will monitor make adjustments as necessary ? She is intolerant of statins 2. Parkinson's disease with debility and falls ? She is not on any Parkinson's medication secondary to significant side effects including rash and anaphylaxis ? PT/OT ? Case management consult for discharge planning ? Continue with Flexeril and Benadryl which she says usually allows her to get some sleep but she was not able to sleep today ? Will give her nighttime dose of trazodone to see if this assists 3. DM2 ? We will hold her home medications ? Sliding scale insulin ? Accu-Cheks ACHS ? We will monitor make adjustments as necessary 4. Overactive bladder ? We will hold her oxybutynin as this is likely contributing to her falls ? Will discontinue on discharge 5. JOSIE ? She does not tolerate a CPAP mask 6. Anxiety/depression ? She does not take any medications as she has significant allergies to multiple other medications recommend continued outpatient follow-up DVT: Heparin drip Allergies/Procedures Done in Hospital Allergies adhesive tape Allergy (Verified 09/21/20 20:13) Other apple Allergy (Verified 04/02/23 10:17) Swelling RAW APPLES ONLY pt states she can have cooked apples/applesauce cephalexin monohydrate [From Keflex] Allergy (Verified 09/21/20 20:13) Other DIME SIZE SPOTS ON LEGS ciprofloxacin [From Cipro] Allergy (Verified 09/21/20 20:13) Hives ciprofloxacin HCl [From Cipro] Allergy (Verified 09/21/20 20:13) Hives citalopram hydrobromide [From Celexa] Allergy (Verified 09/21/20 20:13) Unknown clarithromycin [From Biaxin] Allergy (Verified 09/21/20 20:13) Unknown codeine Allergy (Verified 09/21/20 20:13) Unknown diltiazem HCl [From Cardizem] Allergy (Verified 09/21/20 20:13) Unknown fluoxetine HCl [From Prozac] Allergy (Verified 09/21/20 20:13) Unknown fluticasone [From Advair Diskus] Allergy (Verified 09/21/20 20:13) Swelling fluticasone propionate [From Advair Diskus] Allergy (Verified 09/21/20 20:13) Other hydrochlorothiazide [From Hyzaar] Allergy (Verified 09/21/20 20:13) Unknown ipratropium bromide [From Atrovent] Allergy (Verified 09/21/20 20:13) Unknown labetalol Allergy (Verified 09/21/20 20:13) Rash lamotrigine [From Lamictal] Allergy (Verified 09/21/20 20:13) Unknown latex Allergy (Verified 09/21/20 20:13) Unknown liraglutide [From Victoza] Allergy (Verified 09/21/20 20:13) Unknown losartan potassium [From Hyzaar] Allergy (Verified 09/21/20 20:13) Unknown meloxicam [From Mobic] Allergy (Verified 09/21/20 20:13) Other nitrofurantoin [From Macrobid] Allergy (Verified 11/18/19 13:15) Hives nitrofurantoin macrocrystalline [From Macrobid] Allergy (Verified 09/18/20 13:15) Hives Penicillins Allergy (Verified 09/21/20 20:13) Rash pineapple Allergy (Verified 04/02/23 10:17) Other *RAW PINEAPPLE* mouth turns bloody and raw and then it goes through me bloody and raw quetiapine fumarate [From Seroquel] Allergy (Verified 09/21/20 20:13) Unknown salmeterol [From Advair Diskus] Allergy (Verified 09/21/20 20:13) Swelling salmeterol xinafoate [From Advair Diskus] Allergy (Verified 09/21/20 20:13) Other sertraline HCl [From Zoloft] Allergy (Verified 09/21/20 20:13) Unknown simvastatin [From Zocor] Allergy (Verified 09/21/20 20:13) Unknown topiramate [From Topamax] Allergy (Verified 09/21/20 20:13) Unknown verapamil HCl [From Covera-HS] Allergy (Verified 09/21/20 20:13) Unknown zonisamide [From Zonegran] Allergy (Verified 09/21/20 20:13) Shortness of breath acetaminophen [From Lortab] Adverse Reaction (Verified 09/21/20 20:13) Nausea hydrocodone bitartrate [From Lortab] Adverse Reaction (Verified 09/21/20 20:13) Nausea ramipril [From Altace] Adverse Reaction (Verified 09/21/20 20:13) Laryngospasms sulfamethoxazole [From Septra] Adverse Reaction (Verified 09/21/20 20:13) Unknown trimethoprim [From Septra] Adverse Reaction (Verified 09/21/20 20:13) Unknown Procedures: 2-D Echocardiogram Type of Care/Length of Stay Estimated LOS: Convalescent Care Less Than 30 days Type of Care Needed: Skilled Rehab Potential: Good Prognosis: Good Additional Orders/Day of Discharge Day of Discharge: 04/03/23 Dietary and Speech Recommendations Dietitian Recommendations/Changes: continue cardiac, 1800 calorie controlled diet as tolerated w/ glucerna TID as needed until PO intake at meals improves Discharge Plan Admission Admit Date/Time: 03/31/23 19:57 Attending Provider: Ethan Yip Primary Care Provider: Cynthia Mosqueda Consulting Providers: Dana Robles; Noa Lao Instructions Patient Instructions: Falls Prevent Use Cane Walker Discharge Orders/Prescriptions Prescriptions: New amiodarone 200 mg Tablet 200 mg PO BID 5 Days Qty: 0 0RF amiodarone 200 mg Tablet 200 mg PO DAILY 30 Days Qty: 0 0RF Rx Instructions: Start when BID amiodarone is completed Eliquis 5 mg Tablet 5 mg PO BID 30 Days Qty: 0 0RF methimazole 5 mg Tablet 40 mg PO DAILY 3 Days Qty: 24 0RF metoprolol tartrate 25 mg Tablet 25 mg PO BID 30 Days Qty: 0 0RF methimazole 10 mg tablet 20 mg PO DAILY 30 Days Qty: 60 0RF Continued clonidine HCl 0.3 MG tablet 1 tab PO BID amlodipine 10 MG tablet 1 tab PO DAILY cyclobenzaprine 10 MG tablet 10 mg PO QHS PRN (Reason: LEG CRAMPS) insulin degludec [Tresiba FlexTouch U-200] 200 unit/mL (3 mL) Insulin Pen 56 unit SUBCUT QHS Patient Comments: 03/31 has not taken for 3 days d/t hypoglycemia/anorexia oxybutynin chloride 15 mg tablet extended release 24hr 15 mg PO BID aspirin [Adult Low Dose Aspirin] 81 mg tablet,delayed release (DR/EC) 81 mg PO DAILY diphenhydramine HCl [Allergy (diphenhydramine)] 25 mg capsule 50 mg PO QHS diclofenac sodium 75 mg tablet,delayed release (DR/EC) 75 mg PO .COMPLEX Rx Instructions: 75 mg orally bid for 2 days, then none for 3 days; ibuprofen [IBU] 800 mg tablet 800 mg PO DAILY PRN (Reason: headache) Referrals / Follow Up: Cynthia Mosqueda MD [Primary Care Provider] - As soon as possible (And/or your neurologist) Chris Simmons MD [Med Staff - Courtesy Staff] - Within 2 Weeks (She will need TSH, T3 and T4 drawn prior to visit) Marisol Gan PA [Med Staff - [facility] Practice Prof] - 05/04/23 9:30 am Disposition Disposition (needs filled in before D/C Order can be placed): [facility] (2) HTN (hypertension) Qualifiers: Hypertension type: essential hypertension Qualified Code(s): I10 - Essential (primary) hypertension
--- NOTE | 2023-04-03 11:38 | PCM.DC.SUM ---
Providers Date of Admission: 03/31/23 Primary Care Physician: Dr. Cynthia Mosqueda MD Consultations 03/31/23 20:29 Consult: Cardiology Routine Consulting Provider: Dana Robles Reason for Consult: atrial tachycardia EMERGENT Consult: No MD Notified: Yes Date Notified: 03/31/23 Time Notified: 20:04 Method of Notification: ED Physician Initiated Reason For Visit: AFIB WITH RVR, DEBILITY & FALLS Diagnosis Discharge Diagnosis (1) Atrial flutter: Status: Acute Code(s): I48.92 - Unspecified atrial flutter (2) HTN (hypertension): Status: Chronic Code(s): I10 - Essential (primary) hypertension Qualifiers: Hypertension type: essential hypertension Qualified Code(s): I10 - Essential (primary) hypertension (3) Hyperlipidemia: Status: Chronic Code(s): E78.5 - Hyperlipidemia, unspecified Medications at Discharge Home Medications amlodipine 10 mg tablet 1 tab PO DAILY BLOOD PRESSURE 05/27/17 clonidine HCl 0.3 mg tablet 1 tab PO BID BLOOD PRESSURE 05/27/17 cyclobenzaprine 10 mg tablet 10 mg PO QHS PRN LEG CRAMPS 05/27/17 insulin degludec 200 unit/mL (3 mL) subcutaneous pen (Tresiba FlexTouch U-200 insulin) 56 unit subcut QHS DIABETES 09/21/20 aspirin 81 mg tablet,delayed release (Adult Low Dose Aspirin) 81 mg PO DAILY HEART HEALTH 03/31/23 diclofenac sodium 75 mg tablet,delayed release 75 mg PO .COMPLEX arthritic pain 03/31/23 diphenhydramine HCl 25 mg capsule (Allergy (diphenhydramine)) 50 mg PO QHS insomnia and allergies 03/31/23 ibuprofen 800 mg tablet (IBU) 800 mg PO DAILY PRN headache 03/31/23 amiodarone 200 mg tablet 200 mg PO BID 5 days #0 tabs 04/03/23 amiodarone 200 mg tablet 200 mg PO DAILY 30 days #0 tabs 04/03/23 apixaban 5 mg tablet (Eliquis) 5 mg PO BID 30 days #0 tabs 04/03/23 methimazole 10 mg tablet 20 mg (2 x 10 mg) PO DAILY 30 days #60 tabs 04/03/23 methimazole 5 mg tablet 40 mg (8 x 5 mg) PO DAILY 3 days #24 tabs 04/03/23 metoprolol tartrate 25 mg tablet 25 mg PO BID 30 days #0 tabs 04/03/23 Hospital Course Operations None Procedures 2-D Echocardiogram Summary of Care Provided Minutes Spent on Discharge: 33 Hospital Course: Per HPI: LIVIER VILLAFANA, is a 67 F who presented to the emergency department at [facility] on 03/31/2022 due to multiple falls over the last 2 to 3 weeks. Patient has a history of Parkinson's disease but is not intolerant of multiple medications to treat her tremors. The last fall she had was several days ago but her right low back has been hurting since that point in time and today it was hurting so bad that she was unable to even rise up out of bed. She lives alone and was recently upgraded to a disability apartment and had been doing poorly over the last week even in that setting. She was initially evaluated in the emergency department with imaging and lab work. Imaging was all negative for any acute process. Her CBC was unremarkable. Her chemistry panel showed mild elevation in BUN and creatinine at 28 and 1.04 and her urine did not show any signs of infection however she did appear to be dehydrated with a specific gravity of 1.025. She was given some IV fluids and the plan was to send her home as the patient did not want to be admitted for placement however she then developed acute tachycardia. On questioning, the patient think she may have had this about 20 years ago when she lived in [place] but has not had any issues with it since. EKG appears to be consistent with atrial flutter having 2-1 block. Patient was given adenosine and flutter waves were noted. Patient has multiple allergies to many medications so the case was discussed with cardiology and they recommended initiating an amiodarone drip and starting her on a heparin drip. She is allergic to beta-blockers and calcium channel blockers. Patient does have multiple allergies which will make this complicated. Hospital Course: 1. 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 Cardiology was consulted and recommended initiating amiodarone as well as metoprolol. Given her atrial tachycardia and what appears to be flutter, she was started on Eliquis at full dose. TSH was obtained and it was extremely low, so follow-up T4 and T3 were also obtained, the T4 was elevated but the T3 was normal. I discussed the case with endocrinology who recommended treatment with methimazole 40 mg p.o. daily for 5 days followed by 20 mg daily and they would like to see her in 2 weeks. Her thyroid peroxidase antibody is well as her thyroid-stimulating immunoglobulin are still pending. Prior to an appointment with endocrinology they will need to repeat a TSH as well as a free T3/T4 prior to her appointment. Cardiology recommends amiodarone 200 mg p.o. twice daily for 5 more days and then transition to 200 mg p.o. daily. I would closely monitor her heart rate, if her atrial flutter is due to her thyrotoxicosis, now that she is on methimazole, there is the potential of bottoming out her blood pressure if the metoprolol becomes unnecessary. Also given her falls she is on oxybutynin and this was discontinued on discharge. I discussed with her the plan for discharge today to the [facility] and she expressed understanding of the risk and benefits of discharge, she would like to go today. 2. Parkinson's disease, type 2 diabetes, JOSIE, anxiety, depression, overactive bladder chronic medical conditions which complicate her care. Her home medications were continued where appropriate. Her oxybutynin was discontinued on discharge. Weight / BMI Weight Weight: 223 lb 5.252 oz Body Mass Index (BMI) 39.5 ABG / Lab / Microbiology Data 04/03/23 06:55 04/03/23 06:55 Laboratory: Laboratory Results - last 24 hr 04/02/23 16:02: POC Glucose 185 H 04/02/23 22:12: POC Glucose 152 H 04/03/23 06:30: POC Glucose 120 H 04/03/23 06:55: WBC 5.8, RBC 4.29, Hgb 10.9 L, Hct 34.8 L, MCV 81.1, MCH 25.4 L, MCHC 31.3 L, RDW Std Deviation 43.9, RDW Coeff of Rico 14.9 H, Plt Count 121 L, MPV 12.3 H, Immature Gran % (Auto) 0.700, Neut % (Auto) 55.4, Lymph % (Auto) 23.9, Barbour % (Auto) 14.6 H, Eos % (Auto) 4.9, Baso % (Auto) 0.5, Absolute Neuts (auto) 3.2, Absolute Lymphs (auto) 1.38, Nucleated RBC % 0, Sodium 144, Potassium 3.6, Chloride 116 H, Carbon Dioxide 25.0, Anion Gap 3 L, BUN 20 H, Creatinine 0.80, Estim Creat Clear Calc 79.64, Est GFR (MDRD) Af Amer 93, Est GFR (MDRD) Non-Af 77, BUN/Creatinine Ratio 25.1 H, Glucose 132 H, Calcium 9.4 Meaningful Use Info Meaningful Use Diagnoses (Choose all that apply): None applicable Discharge Plan Admission Admit Date/Time: 03/31/23 19:57 Attending Provider: Ethan Ypi Primary Care Provider: Cynthia Mosqueda Consulting Providers: Dana Robles; Noa Lao Instructions Patient Instructions: Falls Prevent 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 Walker Discharge Orders/Prescriptions Prescriptions: New amiodarone 200 mg Tablet 200 mg PO BID 5 Days Qty: 0 0RF amiodarone 200 mg Tablet 200 mg PO DAILY 30 Days Qty: 0 0RF Rx Instructions: Start when BID amiodarone is completed Eliquis 5 mg Tablet 5 mg PO BID 30 Days Qty: 0 0RF methimazole 5 mg Tablet 40 mg PO DAILY 3 Days Qty: 24 0RF metoprolol tartrate 25 mg Tablet 25 mg PO BID 30 Days Qty: 0 0RF methimazole 10 mg tablet 20 mg PO DAILY 30 Days Qty: 60 0RF Continued clonidine HCl 0.3 MG tablet 1 tab PO BID amlodipine 10 MG tablet 1 tab PO DAILY cyclobenzaprine 10 MG tablet 10 mg PO QHS PRN (Reason: LEG CRAMPS) insulin degludec [Tresiba FlexTouch U-200] 200 unit/mL (3 mL) Insulin Pen 56 unit SUBCUT QHS Patient Comments: 03/31 has not taken for 3 days d/t hypoglycemia/anorexia aspirin [Adult Low Dose Aspirin] 81 mg tablet,delayed release (DR/EC) 81 mg PO DAILY diphenhydramine HCl [Allergy (diphenhydramine)] 25 mg capsule 50 mg PO QHS diclofenac sodium 75 mg tablet,delayed release (DR/EC) 75 mg PO .COMPLEX Rx Instructions: 75 mg orally bid for 2 days, then none for 3 days; ibuprofen [IBU] 800 mg tablet 800 mg PO DAILY PRN (Reason: headache) Discontinued oxybutynin chloride 15 mg tablet extended release 24hr 15 mg PO BID Referrals / Follow Up: Cynthia Mosqueda MD [Primary Care Provider] - As soon as possible (And/or your neurologist) Chris Simmons MD [Med Staff - Courtesy Staff] - Within 2 Weeks (She will need TSH, T3 and T4 drawn prior to visit) Marisol Gan PA [Med Staff - Adv Practice Prof] - 05/04/23 9:30 am Disposition Disposition (needs filled in before D/C Order can be placed): Alf Facility Charges/Coding Visit Charges Inpatient E&M: 85747 Disch Hosp >30min
[2023-04-03] MEDS: Insulin Lispro 100 UNIT/ML INSULN.PEN SC (11:40)
--- NOTE | 2023-04-03 11:49 | CASEMGMT ---
Patient is ready for discharge to TCU. Orders were copied. Plan: d/c to [facility] TCU under skilled level of care. Gayla RICHARDS
--- NOTE | 2023-04-03 11:49 | PHA.DC.MR.R ---
Pharmacy [facility] Med Reconciliation Pharmacy Service has performed discharge medication reconciliation for this patient upon transfer to SNF. The patient's discharge medication list was reviewed for discrepancies and discrepancies were resolved.
[2023-04-03 12:05] LABS: Bedside Glucose 191 mg/dL (74-106)
[2023-04-04 07:11] LABS: Thyroid Peroxidase AB 14 IU/mL (0-34); Thyroid Stim Immunoglob 0.98 IU/L (0.00-0.55)
== END 2023-04-03 11:50 | disposition skilled nursing facility (03) | DRG 309 ==
LOC: ED 20:01 → PCU 20:14
PROVIDERS: Admitting Provider Internal Medicine; Emergency Provider Emergency Medicine; PCP Internal Medicine; Visit Provider Family Medicine
DX: I48.92 Unspecified atrial flutter (principal); Z68.41 Body mass index [BMI] 40.0-44.9, adult; E05.90 Thyrotoxicosis, unspecified without thyrotoxic crisis or storm; G20.A1 Parkinson's disease without dyskinesia, without mention of fluctuations; E11.9 Type 2 diabetes mellitus without complications; E66.01 Morbid (severe) obesity due to excess calories; Z79.4 Long term (current) use of insulin; I48.0 Paroxysmal atrial fibrillation; I10 Essential (primary) hypertension; E78.5 Hyperlipidemia, unspecified; G47.33 Obstructive sleep apnea (adult) (pediatric); S30.0XXA Contusion of lower back and pelvis, initial encounter; W19.XXXA Unspecified fall, initial encounter; I47.19 Other supraventricular tachycardia; N32.81 Overactive bladder; Z79.899 Other long term (current) drug therapy; Z79.82 Long term (current) use of aspirin; Z90.49 Acquired absence of other specified parts of digestive tract; Z90.710 Acquired absence of both cervix and uterus; R79.89 Other specified abnormal findings of blood chemistry; R29.6 Repeated falls; Z86.59 Personal history of other mental and behavioral disorders
CPT/HCPCS: 36415; 71046; 73502; 73564; 80048; 80053; 81001; 82962; 83735; 84100; 84439; 84443; 84445; 84481; 84484; 85025; 85610; 85730; 86376; 93005; 93306; 97162; 97166; 97530; 97535; 97802; 99284; J7030; Q9957; A4216; C8929; J0153; J2405

== ENCOUNTER 2023-04-03 12:01 | Inpatient (IN) | payer MEDICARE, SELFPAY ==
[2023-04-03 12:19] VITALS: BP 137/71; PULSE 76; RESP 18; TEMP 36.6; O2SAT 95; BMI 39.2
[2023-04-03 12:21] VITALS: BMI 39.2
--- NOTE | 2023-04-03 13:28 | PCM.HP.STD ---
HPI - General General Date of Admission: 04/03/23 Date of Service: 04/03/23 Chief Complaint: Here for rehabilitation. HPI Narrative 03/31/2023 LIVIER VILLAFANA, is a 67 Female who presents to [facility] ED with fall. Multiple falls past week, 2-3 times. Right low back pain hurt so bad, unable to get OOB. Right knee pain, no head injury. X-ray right hip, pelvis negative, X-ray right knee negative. Mild dehydration, UA negative. Pain relieved with medication, able to walk. Declined admission for placement. Prior to discharge, heart rate 140, Adenosine revealed possible atrial flutter. 1 liter IV fluid given. Concern for atrial flutter. 03/31/2023 Admit to Hospital. Heparin drip, Echo, Labs, Cardiology for atrial tachycardia. IV fluids for dehydration. PT/OT for falls. 03/31/2023 Echo EF 60%. Mild concentric LVH. 04/01/2023 No sleep 2/2 tremors. Heparin drip for atrial flutter. PT/OT for Parkinson Disease. Amiodarone IV, then PO, Metoprolol 25mg bid for Atrial Flutter. Hyperthyroidism, TSH suppressed, contributed to Atrial Flutter. 04/02/2023 Doing well, feels better after Methimazole. Methimazole 40mg daily x 5 days, then 20mg daily, repeat labs in 2 weeks for Hyperthyroidism. Trazodone for sleep. Hold Oxybutynin / falls. 04/02/2023 PAF on monitor. PT/OT for SNF. 04/03/2023 Start Eliquis for atrial fibrillation. 04/03/2023 Admit to TCU with debility, here for rehabilitation, strengthening, prior to discharge home alone. [facility] Medical History (Updated 04/03/23 @ 13:[address] Troy Gallo MD) Anxiety Asthma Depression Diabetes History of left heart catheterization Hyperlipidemia Hypertension Non-smoker Tremor Home Medications amlodipine 10 mg tablet 1 tab PO DAILY BLOOD PRESSURE 05/27/17 [History Last Taken 04/03/23] clonidine HCl 0.3 mg tablet 1 tab PO BID BLOOD PRESSURE 05/27/17 [History Last Taken 04/03/23] cyclobenzaprine 10 mg tablet 10 mg PO QHS PRN LEG CRAMPS 05/27/17 [History Last Taken 04/02/23] insulin degludec 200 unit/mL (3 mL) subcutaneous pen (Tresiba FlexTouch U-200 insulin) 56 unit subcut QHS DIABETES 09/21/20 [History Last Taken Unknown] aspirin 81 mg tablet,delayed release (Adult Low Dose Aspirin) 81 mg PO DAILY HEART HEALTH 03/31/23 [History Last Taken 04/03/23] diclofenac sodium 75 mg tablet,delayed release 75 mg PO .COMPLEX arthritic pain 03/31/23 [History Last Taken 03/29/23] diphenhydramine HCl 25 mg capsule (Allergy (diphenhydramine)) 50 mg PO QHS insomnia and allergies 03/31/23 [History Last Taken Unknown] ibuprofen 800 mg tablet (IBU) 800 mg PO DAILY PRN headache 03/31/23 [History Last Taken Unknown] amiodarone 200 mg tablet 200 mg PO BID afib 5 days #0 tabs 04/03/23 [Rx Last Taken Unknown] amiodarone 200 mg tablet 200 mg PO DAILY afib 30 days #0 tabs 04/03/23 [Rx Last Taken Unknown] apixaban 5 mg tablet (Eliquis) 5 mg PO BID blood thinner 30 days #0 tabs 04/03/23 [Rx Last Taken Unknown] methimazole 10 mg tablet 20 mg (2 x 10 mg) PO DAILY thyroid 30 days #60 tabs 04/03/23 [Rx Last Taken Unknown] methimazole 5 mg tablet 40 mg (8 x 5 mg) PO DAILY thyroid 3 days #24 tabs 04/03/23 [Rx Last Taken Unknown] metoprolol tartrate 25 mg tablet 25 mg PO BID heart/pulse 30 days #0 tabs 04/03/23 [Rx Last Taken Unknown] Allergy/AdvReac Type Severity Reaction Status Date / Time adhesive tape Allergy Other Verified 09/21/20 20:13 apple Allergy Swelling Verified 04/02/23 10:17 cephalexin monohydrate Allergy Other Verified 09/21/20 20:13 [From Keflex] ciprofloxacin [From Cipro] Allergy Hives Verified 09/21/20 20:13 ciprofloxacin HCl Allergy Hives Verified 09/21/20 20:13 [From Cipro] citalopram hydrobromide Allergy Unknown Verified 09/21/20 20:13 [From Celexa] clarithromycin [From Biaxin] Allergy Unknown Verified 09/21/20 20:13 codeine Allergy Unknown Verified 09/21/20 20:13 diltiazem HCl [From Cardizem] Allergy Unknown Verified 09/21/20 20:13 fluoxetine HCl [From Prozac] Allergy Unknown Verified 09/21/20 20:13 fluticasone Allergy Swelling Verified 09/21/20 20:13 [From Advair Diskus] fluticasone propionate Allergy Other Verified 09/21/20 20:13 [From Advair Diskus] hydrochlorothiazide Allergy Unknown Verified 09/21/20 20:13 [From Hyzaar] ipratropium bromide Allergy Unknown Verified 09/21/20 20:13 [From Atrovent] labetalol Allergy Rash Verified 09/21/20 20:13 lamotrigine [From Lamictal] Allergy Unknown Verified 09/21/20 20:13 latex Allergy Unknown Verified 09/21/20 20:13 liraglutide [From Victoza] Allergy Unknown Verified 09/21/20 20:13 losartan potassium Allergy Unknown Verified 09/21/20 20:13 [From Hyzaar] meloxicam [From Mobic] Allergy Other Verified 09/21/20 20:13 nitrofurantoin Allergy Hives Verified 11/18/19 13:15 [From Macrobid] nitrofurantoin Allergy Hives Verified 11/18/19 13:15 macrocrystalline [From Macrobid] Penicillins Allergy Rash Verified 09/21/20 20:13 pineapple Allergy Other Verified 04/02/23 10:17 quetiapine fumarate Allergy Unknown Verified 09/21/20 20:13 [From Seroquel] salmeterol Allergy Swelling Verified 09/21/20 20:13 [From Advair Diskus] salmeterol xinafoate Allergy Other Verified 09/21/20 20:13 [From Advair Diskus] sertraline HCl [From Zoloft] Allergy Unknown Verified 09/21/20 20:13 simvastatin [From Zocor] Allergy Unknown Verified 09/21/20 20:13 topiramate [From Topamax] Allergy Unknown Verified 09/21/20 20:13 verapamil HCl Allergy Unknown Verified 09/21/20 20:13 [From Covera-HS] zonisamide [From Zonegran] Allergy Shortness Verified 09/21/20 20:13 of breath acetaminophen [From Lortab] AdvReac Nausea Verified 09/21/20 20:13 hydrocodone bitartrate AdvReac Nausea Verified 09/21/20 20:13 [From Lortab] ramipril [From Altace] AdvReac Laryngospas Verified 09/21/20 20:13 ms sulfamethoxazole AdvReac Unknown Verified 09/21/20 20:13 [From Septra] trimethoprim [From Septra] AdvReac Unknown Verified 09/21/20 20:13 Surgical History History of bladder repair surgery History of carpal tunnel release History of cholecystectomy History of hysterectomy Social History household members: none housing: apartment current occupational status: disabled current occupation: Patient is disabled due to Parkinson's disease Smoking Status: Never smoker alcohol intake: never substance use type: does not use ROS Constitutional Constitutional: Denies chills, fever(s) or weight gain ENT HEENT: Denies headache(s), nasal congestion or nasal discharge Cardiovascular Cardiovascular: Denies chest pain or palpitations Respiratory/Chest Respiratory/Chest: Denies cough, excessive phlegm production or shortness of breath with exertion Gastrointestinal Gastrointestinal: Denies abdominal pain, nausea or vomiting Genitourinary Genitourinary: Denies dysuria Musculoskeletal Musculoskeletal: Denies joint pain or joint swelling Integumentary Integumentary: Denies rash or wounds Neurologic Neurologic: Reports abnormal movements and other Details: Tremors. ; Denies focal weakness, numbness or tingling Psychiatric Psychiatric: Denies anxiety, auditory hallucinations, depression, homicidal ideation or suicidal ideation Vital Signs Vital Signs Vital Signs: 04/03/23 12:19 Temperature 97.8 F Temperature Source Temporal Pulse Rate 76 Respiratory Rate 18 Blood Pressure 137/71 H Blood Pressure Mean 93 Blood Pressure Source Monitor Blood Pressure Position Sitting Blood Pressure Location Right Forearm Pulse Ox 95 Oxygen Delivery Method Room Air Weight Weight: 100.4 kg Body Mass Index (BMI) 39.2 Physical Exam Const alert General Appearance: cooperative HEENT normocephalic Eyes PERRL and EOMs intact bilaterally Neck supple, no JVD and no carotid bruits Resp normal respiratory effort, normal air movement and clear to auscultation bilaterally Cardio regular rate and regular rhythm GI normal to inspection, nondistended, normoactive bowel sounds, non-tender and non-distended Extremity normal capillary refill General Extremity: Negative for edema Skin no rashes or lesions noted General Skin Exam: no breakdown Neuro Neuro Narrative: Resting tremor bilateral upper extremities. Psych affect normal Appearance: appropriate Assessment & Plan Assessment/Plan (1) Debility: (2) Atrial flutter: (3) Multiple falls: (4) Tremor: (5) Parkinson disease: (6) HTN (hypertension): QUALIFIERS: Hypertension type: essential hypertension Qualified Code(s): I10 - Essential (primary) hypertension (7) Leg cramps: (8) Diabetes mellitus type II, controlled: (9) Anxiety: (10) Overactive bladder: (11) Depression: (12) Asthma: PLAN: Plan 67 year old female with below past medical history hospitalized for falls, atrial flutter, hyperthyroidism, admitted to TCU with debility, here for rehabilitation, strengthening, prior to discharge home alone. Debility - PT/OT. Pain - Tylenol 1000mg q6 prn pain (1-10). Bowel - senna/colace 1 tablet bid, Magnesium citrate 300ml daily prn. Adult immunization - Administer pneumonia vaccine, covid vaccine, flu vaccine as appropriate. DVT prophylaxis - on Eliquis. Parkinson Disease - f/u Dr. Andrade at discharge. Atrial Fibrillation - Metoprolol 25mg bid, Amiodarone 200mg bid thru 04/08/2023, then 200mg daily, Eliquis 5mg bid. Hypertension - Metoprolol 25mg bid, Amlodipine 10mg daily, Clonidine 0.3mg bid. Leg cramps - Flexeril 10mg qhs prn. Allergic rhinitis/Allergic conjunctivitis/insomnia - Benadryl 25mg bid prn, Benadryl 50mg qhs prn. Diabetes Mellitus II - Glargine 56 units daily. Hyperthyroidism - Methimazole 40mg daily thru 04/05/2023, then 20mg daily, repeat TSH, Free T4, T3 04/16/2023.
--- NOTE | 2023-04-03 14:10 | NURSING ---
Binder Operator Note, Activity Asset: Nehal Moreno is independent in her choice of daily activities. She stated she is allergic to all animal and no pet visits please. She has her own orthodox family that will come and visit her so no need for the bilingual recruiter. Tiffanie will use her smartphone to talk and text family along with playing her word games. Activities also gave her a packet of search and finds for her to work on. Staff will remind her of daily activities and respect her right o say no.
--- NOTE | 2023-04-03 15:52 | CASEMGMT ---
Social Work SW notified by admissions that pt's insurance changed on 04/02 to [employer], which TCU is not INN with. Admissions confirmed this and attempted to get precert. SW spoke with pt to inquire about change of insurance. Pt was unaware of the change and has no insurance cards supporting [employer]. SW explained pt will need to transfer to another SNF that is INN and explained the precert process. Pt initial asked to DC home. LETICIA requested Dr. Gallo to provide recommendation of home vs SNF. agreed pt would be safer to DC to another SNF prior to home for a variety of reasons he explained to the pt. Pt became tearful and expressed being overwhelmed and requested son be involved in this conversation. SW agreed and phoned son - kept on speaker phone. SW explained situation to son. Son very pleasant, expressed understanding, reported he will be visiting pt shortly and can assist in making a decision on SNF choices. SW printed and provided pt with quality and resource data via [employer] that are INN with insurance in [facility]. Son agreed to leave this worker a VM of choices to start referrals the following business day. SW thanked this worker for assistance. SW provided emotional support and acknowledged this is overwhelming. Assured pt she will continue to receive care throughout the weekend and will work on the DC plan following. Pt appreciative. IDT updated. LUL Baker
[2023-04-03 21:53] VITALS: BP 152/67; PULSE 98
[2023-04-03] MEDS: Metoprolol Tartrate 25 MG Tablet PO (21:53)
[2023-04-03] MEDS: DiphenhydrAMINE 25 MG Capsule 50 MG PO (21:53)
[2023-04-03] MEDS: APIXABAN 5 MG TABLET PO (21:53)
[2023-04-03] MEDS: Senna/Docusate Sodium 1 Tablet PO (21:53)
[2023-04-03] MEDS: cloNIDine HCl 0.1 MG Tablet 0.299999999999999989 MG PO (21:54)
[2023-04-03] MEDS: Amiodarone 200 MG Tablet PO (21:55)
[2023-04-03] MEDS: Nystatin Powder 15gm Bottle 1 APPLIC TOPICAL (22:00)
[2023-04-03 22:02] LABS: Bedside Glucose 164 mg/dL (74-106)
[2023-04-04 06:54] LABS: Bedside Glucose 120 mg/dL (74-106)
[2023-04-04 08:30] LABS: Absolute Lymphocyte Count 1.94 X10^3/uL (0.83-4.51); Absolute Neutrophil Count 4.6 X10^3/uL (2.0-7.7); Basophil# 0.05 X10^3/uL; Basophil% 0.6 % (0-1); Eosinophil# 0.34 X10^3/uL; Eosinophils% 4.4 % (0-5); Hematocrit 36.2 % (37-47); Hemoglobin 11.4 g/dL (12.0-15.0); Lymphocyte # 1.94 X10^3/ul (0.83-4.51); Mean Corp Hgb Conc 31.5 g/dL (32-36); Mean Corpuscular Hgb 25.3 pg (27.0-32.0); Mean Corpuscular Volume 80.3 fL (81-99); Monocyte% 10.3 % (0-10); NRBC Flagged by Analyzer 0 % (0-5); Neutrophil # 4.59 X10^3/uL (2.7-7.7); Neutrophil % 59.1 % (47-70); POSITIVE COUNT YES; Platelet Count 164 K/mm3 (150-450); RBC Distribution Width CV 14.7 % (11.6-14.6); RBC Distribution Width SD 42.5 fl (35.1-43.9); Red Blood Count 4.51 M/mm3 (4.2-5.4); White Blood Count 7.8 K/mm3 (4.4-11.0)
[2023-04-04 08:54] LABS: Anion Gap 3 (5-15); BUN 20 mg/dL (7-18); BUN/Creat Ratio 26.1 RATIO (10-20); Calcium,Total 9.5 mg/dL (8.5-10.1); Chloride 113 mmol/L (98-107); Creatinine, Serum 0.77 mg/dL (0.55-1.02); EST Glomerular Filtration Rate 80 mL/min (>60); Est Glom Filt Rate - Afr Amer 97 mL/min (>60); Estimated Creatinine Clearance 79.24 ml/min; Glucose 137 mg/dL (74-106); Potassium 3.7 mmol/L (3.5-5.1); Sodium Level 143 mmol/L (136-145)
[2023-04-04 09:07] LABS: Differential Comment SCANNED
[2023-04-04 09:08] LABS: Platelet Estimate ADEQUATE (ADEQ); Platelet Morphology CLUMPED
[2023-04-04 09:09] LABS: Differential Indicated SCAN CRITERIA MET
[2023-04-04] MEDS: DiphenhydrAMINE 25 MG Capsule PO ×2 (10:28→16:38)
[2023-04-04 11:00] VITALS: BP 124/68; PULSE 80; RESP 16; TEMP 36.8; O2SAT 97
[2023-04-04 11:05] VITALS: PULSE 80
[2023-04-04] MEDS: Metoprolol Tartrate 25 MG Tablet PO ×2 (11:05→21:36)
[2023-04-04] MEDS: Amiodarone 200 MG Tablet PO ×2 (11:06→21:37)
[2023-04-04] MEDS: Senna/Docusate Sodium 1 Tablet PO ×2 (11:06→21:37)
[2023-04-04] MEDS: Methimazole 5 MG Tablet 40 MG PO (11:07)
[2023-04-04] MEDS: Nystatin Powder 15gm Bottle 1 APPLIC TOPICAL ×2 (11:08→21:46)
[2023-04-04] MEDS: cloNIDine HCl 0.1 MG Tablet 0.299999999999999989 MG PO ×2 (11:08→21:38)
[2023-04-04] MEDS: APIXABAN 5 MG TABLET PO ×2 (11:08→21:36)
[2023-04-04] MEDS: amLODIPine 10 MG Tablet PO (11:09)
[2023-04-04] MEDS: Tuberculin,Purif.prot.deriv. 50 TU/ML Vial 0.100000000000000006 ML ID (13:44)
[2023-04-04 14:33] VITALS: BMI 38.9
[2023-04-04 21:32] LABS: Bedside Glucose 177 mg/dL (74-106)
[2023-04-04 21:36] VITALS: BP 149/75; PULSE 94
[2023-04-04] MEDS: DiphenhydrAMINE 25 MG Capsule 50 MG PO (21:39)
[2023-04-04] MEDS: 0.9% Saline Lock 10 ML Syringe IV (21:42)
[2023-04-04] MEDS: cycloBENZAPRine HCl 10 MG Tablet PO (21:58)
--- NOTE | 2023-04-04 21:59 | NURSING ---
Pt verbalizes edema to BLE- refer to circ check for assessment findings. Offered pillow under BLE and pt declines. Will continue to monitor.
[2023-04-05 05:47] VITALS: BMI 39.8
[2023-04-05 06:31] LABS: Bedside Glucose 120 mg/dL (74-106)
[2023-04-05 08:57] VITALS: BP 157/63; PULSE 85; RESP 18; O2SAT 96
[2023-04-05 09:00] VITALS: PULSE 85
[2023-04-05] MEDS: amLODIPine 10 MG Tablet PO (09:00)
[2023-04-05] MEDS: APIXABAN 5 MG TABLET PO ×2 (09:00→23:17)
[2023-04-05] MEDS: Senna/Docusate Sodium 1 Tablet PO ×2 (09:00→23:17)
[2023-04-05] MEDS: Metoprolol Tartrate 25 MG Tablet PO ×2 (09:00→23:20)
[2023-04-05] MEDS: cloNIDine HCl 0.1 MG Tablet 0.299999999999999989 MG PO ×2 (09:00→23:21)
[2023-04-05] MEDS: Amiodarone 200 MG Tablet PO ×2 (09:00→23:20)
[2023-04-05] MEDS: Nystatin Powder 15gm Bottle 1 APPLIC TOPICAL ×2 (09:02→23:21)
[2023-04-05] MEDS: Methimazole 5 MG Tablet 40 MG PO (10:00)
[2023-04-05] MEDS: cycloBENZAPRine HCl 10 MG Tablet PO ×2 (10:09→23:26)
[2023-04-05 11:23] VITALS: TEMP 36
[2023-04-05 21:27] LABS: Bedside Glucose 127 mg/dL (74-106)
--- NOTE | 2023-04-05 21:30 | NURSING ---
Spoke w/ Dr. Gallo via phone to update pt has been refusing Glargine insulin as blood sugars bottom out in the mornings. Reviewed range of blood sugars since admission to TCU. New order received and read back to dc Glargine and change frequenmcy of blood sugar checks to daily- fasting.
[2023-04-05] MEDS: DiphenhydrAMINE 25 MG Capsule 50 MG PO (23:17)
[2023-04-05 23:20] VITALS: BP 137/52; PULSE 107
[2023-04-05] MEDS: Acetaminophen 500 MG Tablet 1000 MG PO (23:26)
[2023-04-05] MEDS: 0.9% Saline Lock 10 ML Syringe IV (23:27)
[2023-04-06 06:44] LABS: Bedside Glucose 128 mg/dL (74-106)
[2023-04-06] MEDS: cloNIDine HCl 0.1 MG Tablet 0.299999999999999989 MG PO ×2 (10:00→22:36)
[2023-04-06] MEDS: amLODIPine 10 MG Tablet PO (10:00)
[2023-04-06] MEDS: Methimazole 5 MG Tablet 20 MG PO (10:00)
[2023-04-06] MEDS: Senna/Docusate Sodium 1 Tablet PO ×2 (10:00→22:36)
[2023-04-06 10:01] VITALS: PULSE 106
[2023-04-06] MEDS: APIXABAN 5 MG TABLET PO ×2 (10:01→22:37)
[2023-04-06] MEDS: Metoprolol Tartrate 25 MG Tablet PO (10:01)
[2023-04-06] MEDS: Amiodarone 200 MG Tablet PO ×2 (10:01→22:37)
[2023-04-06] MEDS: Nystatin Powder 15gm Bottle 1 APPLIC TOPICAL ×2 (10:01→22:38)
[2023-04-06] MEDS: Magnesium Citrate 300 ML PO (11:14)
--- NOTE | 2023-04-06 11:30 | PCM.PN.DRR ---
Documented by User: Camacho Wheeler 04/06/23 11:47 TCU RX Drug Regimen Review Subjective/Objective Subjective/Objective: Subjective: TCU admission note. 67 year old female with below past medical history hospitalized for falls, atrial flutter, hyperthyroidism, admitted to TCU with debility, here for rehabilitation, strengthening, prior to discharge home alone. Objective: Allergies adhesive tape Allergy (Verified 09/21/20 20:13) Other apple Allergy (Verified 04/02/23 10:17) Swelling RAW APPLES ONLY pt states she can have cooked apples/applesauce cephalexin monohydrate [From Keflex] Allergy (Verified 09/21/20 20:13) Other DIME SIZE SPOTS ON LEGS ciprofloxacin [From Cipro] Allergy (Verified 09/21/20 20:13) Hives ciprofloxacin HCl [From Cipro] Allergy (Verified 09/21/20 20:13) Hives citalopram hydrobromide [From Celexa] Allergy (Verified 09/21/20 20:13) Unknown clarithromycin [From Biaxin] Allergy (Verified 09/21/20 20:13) Unknown codeine Allergy (Verified 09/21/20 20:13) Unknown diltiazem HCl [From Cardizem] Allergy (Verified 09/21/20 20:13) Unknown fluoxetine HCl [From Prozac] Allergy (Verified 09/21/20 20:13) Unknown fluticasone [From Advair Diskus] Allergy (Verified 09/21/20 20:13) Swelling fluticasone propionate [From Advair Diskus] Allergy (Verified 09/21/20 20:13) Other hydrochlorothiazide [From Hyzaar] Allergy (Verified 09/21/20 20:13) Unknown ipratropium bromide [From Atrovent] Allergy (Verified 09/21/20 20:13) Unknown labetalol Allergy (Verified 09/21/20 20:13) Rash lamotrigine [From Lamictal] Allergy (Verified 09/21/20 20:13) Unknown latex Allergy (Verified 09/21/20 20:13) Unknown liraglutide [From Victoza] Allergy (Verified 09/21/20 20:13) Unknown losartan potassium [From Hyzaar] Allergy (Verified 09/21/20 20:13) Unknown meloxicam [From Mobic] Allergy (Verified 09/21/20 20:13) Other nitrofurantoin [From Macrobid] Allergy (Verified 11/18/19 13:15) Hives nitrofurantoin macrocrystalline [From Macrobid] Allergy (Verified 11/18/19 13:15) Hives Penicillins Allergy (Verified 09/21/20 20:13) Rash pineapple Allergy (Verified 04/02/23 10:17) Other *RAW PINEAPPLE* mouth turns bloody and raw and then it goes through me bloody and raw quetiapine fumarate [From Seroquel] Allergy (Verified 09/21/20 20:13) Unknown salmeterol [From Advair Diskus] Allergy (Verified 09/21/20 20:13) Swelling salmeterol xinafoate [From Advair Diskus] Allergy (Verified 09/21/20 20:13) Other sertraline HCl [From Zoloft] Allergy (Verified 09/21/20 20:13) Unknown simvastatin [From Zocor] Allergy (Verified 09/21/20 20:13) Unknown topiramate [From Topamax] Allergy (Verified 09/21/20 20:13) Unknown verapamil HCl [From Covera-HS] Allergy (Verified 09/21/20 20:13) Unknown zonisamide [From Zonegran] Allergy (Verified 09/21/20 20:13) Shortness of breath acetaminophen [From Lortab] Adverse Reaction (Verified 09/21/20 20:13) Nausea hydrocodone bitartrate [From Lortab] Adverse Reaction (Verified 09/21/20 20:13) Nausea ramipril [From Altace] Adverse Reaction (Verified 09/21/20 20:13) Laryngospasms sulfamethoxazole [From Septra] Adverse Reaction (Verified 09/21/20 20:13) Unknown trimethoprim [From Septra] Adverse Reaction (Verified 09/21/20 20:13) Unknown Current Medications Generic Name Dose Route Start Last Admin Trade Name Freq PRN Reason Stop Dose Admin Acetaminophen 1,000 mg 04/03/23 13:49 04/05/23 23:26 Acetaminophen 500 Mg Tablet PO 1,000 mg Q6H PRN PRN Administration Pain Score 1-10 Amiodarone HCl 200 mg 04/03/23 22:00 04/06/23 10:01 Amiodarone 200 Mg Tablet PO 04/08/23 22:01 200 mg BID GIFTY Administration Amiodarone HCl 200 mg 04/09/23 10:00 Amiodarone 200 Mg Tablet PO DAILY GIFTY Amlodipine Besylate 10 mg 04/04/23 10:00 04/06/23 10:00 Amlodipine 10 Mg Tablet PO 10 mg DAILY GIFTY Administration Protocol Apixaban 5 mg 04/03/23 22:00 04/06/23 10:01 Apixaban 5 Mg Tablet PO 05/03/23 22:01 5 mg BID GIFTY Administration Clonidine 0.3 mg 04/03/23 22:00 04/06/23 10:00 Clonidine Hcl 0.1 Mg Tablet PO 0.3 mg BID GIFTY Administration Cyclobenzaprine HCl 10 mg 04/03/23 12:14 04/05/23 23:26 Cyclobenzaprine Hcl 10 Mg Tablet PO 10 mg QHS PRN Administration LEG CRAMPS Diphenhydramine HCl 50 mg 04/03/23 22:00 04/05/23 23:17 Diphenhydramine 25 Mg Capsule PO 50 mg QHS GIFTY Administration Diphenhydramine HCl 25 mg 04/03/23 13:27 04/04/23 16:38 Diphenhydramine 25 Mg Capsule PO 25 mg BID PRN PRN Administration NASAL CONGESTION Magnesium Citrate 300 ml 04/03/23 13:49 04/06/23 11:14 Magnesium Citrate 300 Ml PO 300 ml DAILY PRN Administration Constipation Methimazole 20 mg 04/06/23 10:00 04/06/23 10:00 Methimazole 5 Mg Tablet PO 20 mg DAILY GIFTY Administration Metoprolol Tartrate 25 mg 04/03/23 22:00 04/06/23 10:01 Metoprolol Tartrate 25 Mg Tablet PO 25 mg BID GIFTY Administration Protocol Nystatin 1 applic 04/03/23 22:00 04/06/23 10:01 Nystatin Powder 15gm Bottle TOPICAL 1 applic BID GIFTY Administration Protocol Senna/Docusate Sodium 1 tablet 04/03/23 22:00 04/06/23 10:00 Senna/Docusate Sodium 1 Tablet PO 1 tablet BID GIFTY Administration Sodium Chloride 10 - 40 ml 04/03/23 12:23 04/05/23 23:27 0.9% Saline Lock 10 Ml Syringe IV 10 ml UD PRN Administration SALINE FLUSH Tuberculin PPD 0.1 ml 04/11/23 10:00 Tuberculin,Purif.Prot.Deriv. 50 Tu/Ml Vial ID 04/11/23 10:01 X1 ONE Problem List (Updated 04/03/23 @ 13:[address] Troy Gallo MD) Depression (Acute) Overactive bladder (Acute) Anxiety (Acute) Diabetes mellitus type II, controlled (Acute) Leg cramps (Acute) Parkinson disease (Acute) Debility (Acute) Atrial flutter (Acute) Multiple falls (Acute) Tremor (Acute) Asthma (Chronic) HTN (hypertension) (Chronic) Vital Signs Temp Pulse Resp BP Pulse Ox O2 Del Method 96.8 F L 106 H 18 137/52 H 96 Room Air 04/05/23 11:23 04/06/23 10:01 04/05/23 08:57 04/05/23 23:20 04/05/23 08:57 04/05/23 10:00 Oxygen Delivery Method Room Air Weight: 102 kg Body Mass Index (BMI) 39.8 Sodium 143 mmol/L (136-145) 04/04/23 07:43 Potassium 3.7 mmol/L (3.5-5.1) 04/04/23 07:43 Chloride 113 mmol/L (98-107) H 04/04/23 07:43 Carbon Dioxide 27.0 mmol/L (21.0-32.0) 04/04/23 07:43 Anion Gap 3 (5-15) L 04/04/23 07:43 BUN 20 mg/dL (7-18) H 04/04/23 07:43 Creatinine 0.77 mg/dL (0.55-1.02) 04/04/23 07:43 Est GFR (MDRD) Af Amer 97 mL/min (>60) 04/04/23 07:43 Est GFR (MDRD) Non-Af 80 mL/min (>60) 04/04/23 07:43 BUN/Creatinine Ratio 26.1 RATIO (10-20) H 04/04/23 07:43 Glucose 137 mg/dL (74-106) H 04/04/23 07:43 Assessment/Plan: 1. Pain- acetaminophen 1000mg Q6H PRN (1-10).?Last PRN dose 04/05/23, pain was 2/10 at 23:26. Continue to monitor for pain, prn medication use. Monitor LFTs- WNL 03/22/23 2. Bowel- Senna-S 1 tablet BID, mag citrate 300ml daily prn. Monitor for bowel movement, constipation/diarrhea, prn medication use. Last bowel movement 04/03/23. No documented use of PRN medications at this time. 3. Atrial Fibrillation- Metoprolol Tartrate 25mg BID, Amiodarone 200mg BID thru 04/08/23- then 200mg QD thereafter, Eliquis 5mg BID. Monitor for signs of irregular heart beat. Monitor heart rate (recent range = 76-107 beats/min), thyroid levels (TSH = <0.01 uIU/mL on 03/31/23 with T4 = 2.60 ng/dL on 04/01/23)), pulmonary toxicity, LFTs, and for s/s of bleeding/excessive bruising. Monitor Hgb- last 11.4 g/dl on 04/04/23. 4. Hypertension- Metoprolol Tartrate 25mg BID, Amlodipine 10mg daily, Clonidine 0.3mg BID. Monitor BP- average SBP 135-159 mmHg/ average DBP 52-106 mmHg. Monitor for lower extremity edema and fatigue. No abrupt discontinuation with beta jaorcho/clonidine combination therapy. The patient's systolic blood pressures have been elevated with only 1 reading below 130 mmHg recently, please consider increasing the patient's metoprolol tartrate to 50 mg PO BID. 5. Leg cramps: Leg Cramps- Cyclobenzaprine 10mg QHS prn. Monitor for symptoms of leg cramping. Last PRN x1 04/04/23 and x2 (AM+ HS) 04/05/23. Monitor for increased fall risk, anticholinergic effects- (BEERs criteria) 6. Allergic Rhinitis/Allergic Conjunctivitis/ Insomnia- Benadryl 50mg QHS, Benadryl 25mg BID prn. x2 PRN doses 04/04/23 for patient reported itching. Medication effective- awake/alert following dose. Monitor for drowsiness, anticholinergic effects- BEERs. ? 7. Hyperthyroidism- Methimazole 20mg daily. Monitor TSH/Free T4/T3 on repeat labs 04/16/23. TSH <0.01 on 03/31/23. Monitor for s/s of hypo/hyperthyroidism. Last dose methimazole 40mg daily given 04/05/23. ? 8. Tinea Corporis- Nystatin Powder 1 application BID. Monitor for resolution of tinea corporis. Assessment/Plan for indications treated with psychotropic medications: NA Medical chart and medication regimen reviewed. The following medication irregularities or issues were identified. 1. Hypertension- Metoprolol Tartrate 25mg BID, Amlodipine 10mg daily, Clonidine 0.3mg BID. The patient's systolic blood pressures have been elevated with only 1 reading below 130 mmHg recently, please consider increasing the patient's metoprolol tartrate to 50 mg PO BID. Date Date of Note:: 04/06/23 Documented by User: Dr. Troy Gallo MD 04/06/23 13:00 TCU RX Drug Regimen Review Provider Comments Provider responsibility Provider Comments to Recommendations by Pharmacy: Agree
--- NOTE | 2023-04-06 11:55 | NURSING ---
Offered covid vaccine, VIS provided. Patient refuses at this time.
[2023-04-06 14:38] VITALS: BP 144/78; PULSE 77; RESP 14; TEMP 36.1; O2SAT 93
[2023-04-06] MEDS: DiphenhydrAMINE 25 MG Capsule PO (16:17)
--- NOTE | 2023-04-06 16:45 | CASEMGMT ---
Social Work Met with patient to update that insurance approved precert and Director approved pt remain. Educated that pt has up to 20 days of coverage, but cannot accept Medicaid for copay coverage and pt cannot pay OOP. Educated to PATIENT ADMITTING CLERK process - NRD 04/13 and continued stay is not guaranteed with each review. Pt's goal is to return home alone, but unsure if pt can safely remain at home. SW requested son provide copies of advanced directives. Pt appreciative of assistance with insurance coverage. SW left detailed VM with son about insurance approval/coverage. SW will continue to follow for DC planning. Lianet Nagel, TUMBLING MACHINE OPERATOR SPRING BENDER
[2023-04-06 22:36] VITALS: BP 143/53; PULSE 72
[2023-04-06] MEDS: Metoprolol Tartrate 50 MG Tablet PO (22:36)
[2023-04-06] MEDS: DiphenhydrAMINE 25 MG Capsule 50 MG PO (22:36)
[2023-04-07 06:57] LABS: Bedside Glucose 146 mg/dL (74-106)
[2023-04-07] MEDS: cloNIDine HCl 0.1 MG Tablet 0.299999999999999989 MG PO ×2 (08:41→22:05)
[2023-04-07] MEDS: APIXABAN 5 MG TABLET PO ×2 (08:42→22:06)
[2023-04-07] MEDS: Amiodarone 200 MG Tablet PO ×2 (08:42→22:05)
[2023-04-07 08:43] VITALS: BP 151/68; PULSE 82
[2023-04-07] MEDS: Metoprolol Tartrate 50 MG Tablet PO ×2 (08:43→22:06)
[2023-04-07] MEDS: Nystatin Powder 15gm Bottle 1 APPLIC TOPICAL ×2 (08:44→22:06)
[2023-04-07] MEDS: amLODIPine 10 MG Tablet PO (08:44)
[2023-04-07] MEDS: Magnesium Chloride 64 MG Delay Rel.Tablet 128 MG PO (08:44)
[2023-04-07] MEDS: Senna/Docusate Sodium 1 Tablet PO ×2 (08:45→22:06)
[2023-04-07] MEDS: Methimazole 5 MG Tablet 20 MG PO (08:45)
[2023-04-07] MEDS: DiphenhydrAMINE 25 MG Capsule PO (08:48)
[2023-04-07 10:00] VITALS: PULSE 76; RESP 12; O2SAT 93
[2023-04-07 10:04] VITALS: BP 139/116; PULSE 76; RESP 12; TEMP 36.4; O2SAT 93
--- NOTE | 2023-04-07 17:40 | NURSING ---
This Nurse spoke with pt. who explained how her last night in the unit she was in prior to TCU she observed a blonde nurse going through her wallet after administering her medication to help her sleep. Pt says the nurse claimed she was just plugging in her phone and then left the room and told her to go to sleep. Pt states the next day she noticed the cards in her wallet were out of place. Following the incident pt. said her son took all of her cards back home after that. Joanie notified of event.
[2023-04-07] MEDS: DiphenhydrAMINE 25 MG Capsule 50 MG PO (22:04)
[2023-04-07] MEDS: cycloBENZAPRine HCl 10 MG Tablet PO (22:04)
[2023-04-07] MEDS: Acetaminophen 500 MG Tablet 1000 MG PO (22:04)
[2023-04-07 22:06] VITALS: BP 134/55; PULSE 69
[2023-04-08 06:48] LABS: Bedside Glucose 160 mg/dL (74-106)
[2023-04-08 08:45] VITALS: BP 152/70; PULSE 50; RESP 14; TEMP 36.5; O2SAT 98
--- NOTE | 2023-04-08 10:00 | CASEMGMT ---
Social Work IDT met with patient and son for care plan meeting. Discussed patient's progress in PT/OT/ST/SN. Educated to [facility] with NRD 04/13 and continued stay is not guaranteed with each review. If insurance approves continued stay, the latest pt can remain is day 21 on 04/23, [facility] IDT expressed concern with pt returning home alone at current LOC. Recommending additional assistance at home. SW to contact [employer]. Pt stated she was approved for hours of aides, but unsure of staffing. Discussed recommended DME: wire machine cutter, sock aid, trapeze for home hospital bed, and half bed rail. Son agreed with concerns. SW offered SNF or AL as a transition or LTP. Pt stated she would like to think about it and see how she improves by the insurance update before making a decision. SW agreed and offered ongoing assistance with DC planning. SW inquired about advanced directives. Pt would like to complete, naming son as HCPOA. SW to complete prior to DC. Lianet Nagel, LUL GEORGEW
[2023-04-08] MEDS: cloNIDine HCl 0.1 MG Tablet 0.299999999999999989 MG PO ×2 (10:03→21:50)
[2023-04-08] MEDS: Amiodarone 200 MG Tablet PO ×2 (10:03→21:50)
[2023-04-08] MEDS: APIXABAN 5 MG TABLET PO ×2 (10:04→21:50)
[2023-04-08] MEDS: Magnesium Chloride 64 MG Delay Rel.Tablet 128 MG PO (10:06)
[2023-04-08] MEDS: Nystatin Powder 15gm Bottle 1 APPLIC TOPICAL ×2 (10:09→21:52)
[2023-04-08] MEDS: Senna/Docusate Sodium 1 Tablet PO ×2 (10:10→21:51)
[2023-04-08] MEDS: amLODIPine 10 MG Tablet PO (10:10)
[2023-04-08] MEDS: Methimazole 5 MG Tablet 20 MG PO (10:13)
[2023-04-08 10:18] VITALS: PULSE 58
[2023-04-08] MEDS: Metoprolol Tartrate 50 MG Tablet PO ×2 (10:18→21:51)
[2023-04-08 14:00] VITALS: BMI 39.2
[2023-04-08 15:30] VITALS: BP 114/64; PULSE 58; RESP 16; TEMP 37; O2SAT 96
[2023-04-08 21:48] VITALS: BP 159/57; PULSE 83
[2023-04-08] MEDS: 0.9% Saline Lock 10 ML Syringe IV (21:49)
[2023-04-08 21:51] VITALS: PULSE 83
[2023-04-08] MEDS: DiphenhydrAMINE 25 MG Capsule 50 MG PO (21:51)
[2023-04-09 06:18] LABS: Bedside Glucose 146 mg/dL (74-106)
[2023-04-09] MEDS: Amiodarone 200 MG Tablet PO (10:25)
[2023-04-09 10:26] VITALS: PULSE 60
[2023-04-09] MEDS: APIXABAN 5 MG TABLET PO ×2 (10:26→20:46)
[2023-04-09] MEDS: Metoprolol Tartrate 50 MG Tablet PO ×2 (10:26→20:44)
[2023-04-09] MEDS: amLODIPine 10 MG Tablet PO (10:27)
[2023-04-09] MEDS: Senna/Docusate Sodium 1 Tablet PO ×2 (10:27→20:46)
[2023-04-09] MEDS: cloNIDine HCl 0.1 MG Tablet 0.299999999999999989 MG PO ×2 (10:27→20:45)
[2023-04-09] MEDS: Magnesium Chloride 64 MG Delay Rel.Tablet 128 MG PO (10:27)
[2023-04-09] MEDS: Methimazole 5 MG Tablet 20 MG PO (10:28)
[2023-04-09] MEDS: Nystatin Powder 15gm Bottle 1 APPLIC TOPICAL ×2 (10:33→20:46)
[2023-04-09] MEDS: DiphenhydrAMINE 25 MG Capsule PO (10:36)
[2023-04-09 12:17] VITALS: BP 138/54; PULSE 59; RESP 18; TEMP 36.3; O2SAT 97
--- NOTE | 2023-04-09 13:42 | MDS.RN ---
Pain interview for mds completed.
[2023-04-09] MEDS: Acetaminophen 500 MG Tablet 1000 MG PO (16:29)
[2023-04-09 20:44] VITALS: BP 162/52; PULSE 84
[2023-04-09] MEDS: DiphenhydrAMINE 25 MG Capsule 50 MG PO (20:44)
[2023-04-09 20:54] VITALS: O2SAT 95
[2023-04-10 07:02] LABS: Bedside Glucose 143 mg/dL (74-106)
[2023-04-10] MEDS: cloNIDine HCl 0.1 MG Tablet 0.299999999999999989 MG PO ×2 (08:26→22:29)
[2023-04-10] MEDS: Nystatin Powder 15gm Bottle 1 APPLIC TOPICAL ×2 (08:27→22:28)
[2023-04-10] MEDS: amLODIPine 10 MG Tablet PO (08:27)
[2023-04-10] MEDS: APIXABAN 5 MG TABLET PO ×2 (08:27→22:28)
[2023-04-10] MEDS: Amiodarone 200 MG Tablet PO (08:27)
[2023-04-10] MEDS: Magnesium Chloride 64 MG Delay Rel.Tablet 128 MG PO (08:27)
[2023-04-10] MEDS: Senna/Docusate Sodium 1 Tablet PO ×2 (08:28→22:28)
[2023-04-10] MEDS: Methimazole 5 MG Tablet 20 MG PO (08:28)
[2023-04-10 08:32] VITALS: BP 146/53; PULSE 60
[2023-04-10] MEDS: Metoprolol Tartrate 50 MG Tablet PO ×2 (08:32→22:29)
[2023-04-10] MEDS: DiphenhydrAMINE 25 MG Capsule PO (08:34)
--- NOTE | 2023-04-10 08:43 | NURSING ---
Inclusion Intern Note; MDS for 04/10/2023 Complete
--- NOTE | 2023-04-10 11:57 | CASEMGMT ---
Social Work SW phoned [employer], to follow up on pt's DME needs and inquire about services. CM stated her coworker visited with pt this week on services. SW requested hip kit, trapeze, half bed rail, and MASTER MECHANIC. CM stated pt is approved for 10 hrs of MASTER MECHANIC, but that staffing may be an issue. CM offered to send out the request and notify this worker if there is any availability. SW appreciative as that will make an impact of DC recommendations if pt will have help at home. LETICIA also noted the discussion had with pt and son on transferring to another SNF if pt needs continued therapy prior to home. CM agreed. LETICIA and CM will continue to collaborate on DC plans. Lianet Nagel MALE MODEL ORGANISATION AND METHODS ANALYST
--- NOTE | 2023-04-10 12:25 | CASEMGMT ---
BIMS () and PHQ9 () interviews completed on this date for MDS assessment. MELANIA Thomas
[2023-04-10 14:07] VITALS: BP 118/52; PULSE 52; RESP 16; TEMP 36.2; O2SAT 97
[2023-04-10] MEDS: DiphenhydrAMINE 25 MG Capsule 50 MG PO (22:28)
[2023-04-10 22:29] VITALS: BP 137/66; PULSE 71
[2023-04-11 06:58] LABS: Bedside Glucose 144 mg/dL (74-106)
[2023-04-11 08:17] LABS: Absolute Neutrophil Count 4.9 X10^3/uL (2.0-7.7); Basophil# 0.06 X10^3/uL; Basophil% 0.8 % (0-1); Eosinophil# 0.32 X10^3/uL; Hematocrit 37.3 % (37-47); Hemoglobin 11.6 g/dL (12.0-15.0); Lymphocyte % 23.8 % (19-41); Mean Corp Hgb Conc 31.1 g/dL (32-36); Mean Corpuscular Hgb 25.7 pg (27.0-32.0); Mean Corpuscular Volume 82.5 fL (81-99); Monocyte# 0.75 X10^3/uL; Monocyte% 9.4 % (0-10); NRBC Flagged by Analyzer 0 % (0-5); Neutrophil % 61.5 % (47-70); Platelet Count 231 K/mm3 (150-450); RBC Distribution Width CV 14.9 % (11.6-14.6); Red Blood Count 4.52 M/mm3 (4.2-5.4)
[2023-04-11 08:23] LABS: Anion Gap 3 (5-15); BUN 31 mg/dL (7-18); Calcium,Total 9.8 mg/dL (8.5-10.1); Chloride 110 mmol/L (98-107); EST Glomerular Filtration Rate 59 mL/min (>60); Est Glom Filt Rate - Afr Amer 71 mL/min (>60); Estimated Creatinine Clearance 63.42 ml/min; Glucose 147 mg/dL (74-106); Potassium 4.5 mmol/L (3.5-5.1); Sodium Level 138 mmol/L (136-145)
[2023-04-11] MEDS: cloNIDine HCl 0.1 MG Tablet 0.299999999999999989 MG PO ×2 (09:51→22:57)
[2023-04-11] MEDS: Magnesium Chloride 64 MG Delay Rel.Tablet 128 MG PO (09:52)
[2023-04-11] MEDS: APIXABAN 5 MG TABLET PO ×2 (09:52→22:57)
[2023-04-11] MEDS: Senna/Docusate Sodium 1 Tablet PO ×2 (09:52→22:58)
[2023-04-11] MEDS: Nystatin Powder 15gm Bottle 1 APPLIC TOPICAL ×2 (09:52→23:00)
[2023-04-11] MEDS: Amiodarone 200 MG Tablet PO (09:52)
[2023-04-11] MEDS: amLODIPine 10 MG Tablet PO (09:52)
[2023-04-11 09:53] VITALS: BP 162/74; PULSE 103
[2023-04-11] MEDS: Metoprolol Tartrate 50 MG Tablet PO ×2 (09:53→22:58)
[2023-04-11] MEDS: DiphenhydrAMINE 25 MG Capsule PO (09:53)
[2023-04-11] MEDS: Methimazole 5 MG Tablet 20 MG PO (09:53)
[2023-04-11 10:00] VITALS: RESP 18; O2SAT 97
[2023-04-11] MEDS: Tuberculin,Purif.prot.deriv. 50 TU/ML Vial 0.100000000000000006 ML ID (10:46)
[2023-04-11 14:48] VITALS: BP 134/65; PULSE 54; RESP 17; TEMP 36.1; O2SAT 95
[2023-04-11] MEDS: cycloBENZAPRine HCl 10 MG Tablet PO (22:57)
[2023-04-11 22:58] VITALS: BP 174/41; PULSE 79
[2023-04-11] MEDS: DiphenhydrAMINE 25 MG Capsule 50 MG PO (22:59)
[2023-04-11] MEDS: Acetaminophen 500 MG Tablet 1000 MG PO (22:59)
[2023-04-12 06:48] LABS: Bedside Glucose 150 mg/dL (74-106)
[2023-04-12] MEDS: cloNIDine HCl 0.1 MG Tablet 0.299999999999999989 MG PO ×2 (08:16→22:10)
[2023-04-12] MEDS: APIXABAN 5 MG TABLET PO ×2 (08:17→22:09)
[2023-04-12] MEDS: Amiodarone 200 MG Tablet PO (08:17)
[2023-04-12 08:18] VITALS: BP 147/49; PULSE 59
[2023-04-12] MEDS: amLODIPine 10 MG Tablet PO (08:18)
[2023-04-12] MEDS: Magnesium Chloride 64 MG Delay Rel.Tablet 128 MG PO (08:18)
[2023-04-12] MEDS: Metoprolol Tartrate 50 MG Tablet PO ×2 (08:18→22:09)
[2023-04-12] MEDS: Methimazole 5 MG Tablet 20 MG PO (08:19)
[2023-04-12] MEDS: Senna/Docusate Sodium 1 Tablet PO (08:19)
[2023-04-12] MEDS: Nystatin Powder 15gm Bottle 1 APPLIC TOPICAL ×2 (08:24→22:08)
[2023-04-12 14:51] VITALS: BP 117/58; PULSE 57; RESP 16; TEMP 36.4; O2SAT 97
--- NOTE | 2023-04-12 21:17 | NURSING ---
Spoke w/ Dr. Gallo via phone. Updated on pt request to increase Senna-S to 2 tablets po BID d/t constipation. New order received and read back for previous noted order. Order reflected on APR.
[2023-04-12 22:09] VITALS: BP 169/61; PULSE 66
[2023-04-12] MEDS: DiphenhydrAMINE 25 MG Capsule 50 MG PO (22:10)
[2023-04-12] MEDS: Senna/Docusate Sodium 1 Tablet 2 TABLET PO (22:11)
[2023-04-13] MEDS: Acetaminophen 500 MG Tablet 1000 MG PO ×3 (01:20→22:23)
[2023-04-13] MEDS: cycloBENZAPRine HCl 10 MG Tablet PO ×2 (01:20→22:23)
[2023-04-13 06:26] LABS: Bedside Glucose 150 mg/dL (74-106)
[2023-04-13] MEDS: Magnesium Chloride 64 MG Delay Rel.Tablet 128 MG PO (10:15)
[2023-04-13] MEDS: APIXABAN 5 MG TABLET PO ×2 (10:15→22:24)
[2023-04-13] MEDS: Senna/Docusate Sodium 1 Tablet 2 TABLET PO ×2 (10:15→22:26)
[2023-04-13] MEDS: Amiodarone 200 MG Tablet PO (10:16)
[2023-04-13] MEDS: cloNIDine HCl 0.1 MG Tablet 0.299999999999999989 MG PO ×2 (10:16→22:23)
[2023-04-13] MEDS: amLODIPine 10 MG Tablet PO (10:16)
[2023-04-13] MEDS: Methimazole 5 MG Tablet 20 MG PO (10:18)
[2023-04-13 10:22] VITALS: PULSE 81
[2023-04-13] MEDS: Metoprolol Tartrate 50 MG Tablet PO ×2 (10:22→22:25)
[2023-04-13 10:24] VITALS: BP 148/76; PULSE 81; RESP 16; TEMP 36.8; O2SAT 97
[2023-04-13] MEDS: Nystatin Powder 15gm Bottle 1 APPLIC TOPICAL ×2 (10:26→22:26)
[2023-04-13] MEDS: DiphenhydrAMINE 25 MG Capsule 50 MG PO (22:23)
[2023-04-13 22:25] VITALS: BP 158/52; PULSE 68
[2023-04-14 06:19] LABS: Bedside Glucose 158 mg/dL (74-106)
[2023-04-14] MEDS: cloNIDine HCl 0.1 MG Tablet 0.299999999999999989 MG PO ×2 (09:20→21:41)
[2023-04-14] MEDS: Amiodarone 200 MG Tablet PO (09:21)
[2023-04-14] MEDS: APIXABAN 5 MG TABLET PO ×2 (09:21→21:43)
[2023-04-14 09:22] VITALS: BP 113/76; PULSE 81
[2023-04-14] MEDS: Metoprolol Tartrate 50 MG Tablet PO ×2 (09:22→21:43)
[2023-04-14] MEDS: Magnesium Chloride 64 MG Delay Rel.Tablet 128 MG PO (09:23)
[2023-04-14] MEDS: Nystatin Powder 15gm Bottle 1 APPLIC TOPICAL ×2 (09:24→21:49)
[2023-04-14] MEDS: Senna/Docusate Sodium 1 Tablet 2 TABLET PO ×2 (09:25→21:41)
[2023-04-14] MEDS: amLODIPine 10 MG Tablet PO (09:25)
[2023-04-14] MEDS: Methimazole 5 MG Tablet 20 MG PO (09:26)
[2023-04-14] MEDS: Acetaminophen 500 MG Tablet 1000 MG PO ×2 (09:37→21:41)
[2023-04-14 10:13] VITALS: BP 113/76; PULSE 82; RESP 20; TEMP 36.6; O2SAT 98
[2023-04-14 11:16] VITALS: BMI 39.2
[2023-04-14 13:07] VITALS: BP 140/69; PULSE 62; RESP 18; TEMP 36.6; O2SAT 91
--- NOTE | 2023-04-14 15:09 | CASEMGMT ---
Social Work SW phoned son to update on insurance approval with NRD 04/20 and d/t to day 21, DC date will be 04/23. Educated pt is still maxA for all ADLs and IDT recommending continued skilled therapy at a SNF prior to home, especially since there is no staffing for REGISTERED NURSE CARDIAC TELEMETRY through [facility]. Son stated pt is set on going home , but does express concern as well. SW to speak with pt. SW spoke with pt and explained above. Pt initially stated she will manage at home and she can get to the bathroom fine . SW reiterated it is not a concern on pt's mobility as much as it is completing the ADL tasks. SW explored further the hesitation with DCing to a SNF. Pt stated if there is a COVID outbreak, she cannot see her family, and she needs to see her family and she was told pt would need to give all but $50 of her monthly income to the SNF. SW explained COVID outbreak protocols have changed since the middle of the pandemic, and there are no visitor restrictions when in COVID outbreak, but offered to confirm with accepting facility. Also explained if the pt is LTC, that is when income is requested, but pt would transfer skilled with the goal of DCing home after further independence is gained. Encouraged pt to consider the improvement pt has made thus far, and the continued improvement pt could make with additional weeks of skilled therapy. Pt stated if she does go home, her grandson will stay overnight, care for her in the AM before work, then the other grandson would get off the school bus at pt's house and care for the PM until son is off work and grandson comes home. SW expressed appreciation for arranging help in the home and her family assisting. However, still encouraged pt to consider short term SNF stay. Explained if insurance was not an issue, IDT would be recommending continued stay in TCU until DC home. Pt expressed understanding and agreed to consider. Son visiting this evening and will discuss with him and review the SNF list this worker provided to pt upon admission. Pt appreciative. SW to follow up. Lianet Nagel GENERAL WAREHOUSE WORKER NEUROPHYSIOLOGIST
[2023-04-14] MEDS: DiphenhydrAMINE 25 MG Capsule PO (16:41)
[2023-04-14] MEDS: cycloBENZAPRine HCl 10 MG Tablet PO (21:40)
[2023-04-14] MEDS: DiphenhydrAMINE 25 MG Capsule 50 MG PO (21:42)
[2023-04-14 21:43] VITALS: BP 149/67; PULSE 81
[2023-04-14 22:00] VITALS: PULSE 81; RESP 16; O2SAT 94
[2023-04-15 06:49] LABS: Bedside Glucose 154 mg/dL (74-106)
[2023-04-15 08:30] VITALS: BP 140/48; PULSE 64; RESP 18; TEMP 36.2; O2SAT 98
--- NOTE | 2023-04-15 08:59 | MDS.RN ---
Information for the mds was obtained from review of the clinical record, interview of resident, staff, and direct observation of resident's care.
[2023-04-15] MEDS: cloNIDine HCl 0.1 MG Tablet 0.299999999999999989 MG PO ×2 (09:15→21:47)
[2023-04-15 09:16] VITALS: BP 140/48; PULSE 64
[2023-04-15] MEDS: APIXABAN 5 MG TABLET PO ×2 (09:16→21:47)
[2023-04-15] MEDS: Metoprolol Tartrate 50 MG Tablet PO ×2 (09:16→21:48)
[2023-04-15] MEDS: Amiodarone 200 MG Tablet PO (09:16)
[2023-04-15] MEDS: Magnesium Chloride 64 MG Delay Rel.Tablet 128 MG PO (09:17)
[2023-04-15] MEDS: Senna/Docusate Sodium 1 Tablet 2 TABLET PO ×2 (09:18→21:46)
[2023-04-15] MEDS: Methimazole 5 MG Tablet 20 MG PO (09:18)
[2023-04-15] MEDS: amLODIPine 10 MG Tablet PO (09:18)
[2023-04-15 10:45] VITALS: O2SAT 98
[2023-04-15] MEDS: Pneumococcal Vaccine 20 Valent 0.5 ML Syringe IM (14:23)
[2023-04-15] MEDS: Nystatin Powder 15gm Bottle 1 APPLIC TOPICAL (14:23)
[2023-04-15 16:00] VITALS: BP 144/57; PULSE 61; RESP 16; TEMP 35.5; O2SAT 98
[2023-04-15] MEDS: DiphenhydrAMINE 25 MG Capsule 50 MG PO (21:47)
[2023-04-15 21:48] VITALS: BP 148/62; PULSE 72
[2023-04-15] MEDS: Acetaminophen 500 MG Tablet 1000 MG PO (21:52)
[2023-04-15] MEDS: cycloBENZAPRine HCl 10 MG Tablet PO (21:52)
[2023-04-16] MEDS: Nystatin Powder 15gm Bottle 1 APPLIC TOPICAL ×3 (00:30→22:20)
[2023-04-16 06:44] LABS: Bedside Glucose 146 mg/dL (74-106)
[2023-04-16] MEDS: Amiodarone 200 MG Tablet PO (09:40)
[2023-04-16] MEDS: amLODIPine 10 MG Tablet PO (09:42)
[2023-04-16] MEDS: Magnesium Chloride 64 MG Delay Rel.Tablet 128 MG PO (09:42)
[2023-04-16] MEDS: APIXABAN 5 MG TABLET PO ×2 (09:42→22:19)
[2023-04-16 09:43] VITALS: BP 149/75; PULSE 71
[2023-04-16] MEDS: Metoprolol Tartrate 50 MG Tablet PO ×2 (09:43→22:19)
[2023-04-16] MEDS: cloNIDine HCl 0.1 MG Tablet 0.299999999999999989 MG PO ×2 (09:43→22:19)
[2023-04-16] MEDS: Senna/Docusate Sodium 1 Tablet 2 TABLET PO ×2 (09:43→22:19)
[2023-04-16] MEDS: Methimazole 5 MG Tablet 20 MG PO (09:44)
[2023-04-16 09:49] VITALS: BP 149/75; PULSE 71
[2023-04-16] MEDS: Magnesium Citrate 300 ML PO (12:56)
[2023-04-16 13:48] VITALS: BP 129/62; PULSE 53; RESP 16; TEMP 36.2; O2SAT 96
[2023-04-16] MEDS: Acetaminophen 500 MG Tablet 1000 MG PO ×2 (14:58→22:17)
[2023-04-16 22:00] VITALS: PULSE 80; RESP 18; O2SAT 98
[2023-04-16] MEDS: cycloBENZAPRine HCl 10 MG Tablet PO (22:17)
[2023-04-16 22:19] VITALS: BP 164/68; PULSE 80
[2023-04-16] MEDS: DiphenhydrAMINE 25 MG Capsule 50 MG PO (22:20)
[2023-04-17 05:08] VITALS: RESP 16; O2SAT 96
[2023-04-17 06:12] LABS: Bedside Glucose 161 mg/dL (74-106)
[2023-04-17 08:41] VITALS: BP 138/46; PULSE 58
[2023-04-17] MEDS: Magnesium Chloride 64 MG Delay Rel.Tablet 128 MG PO (08:41)
[2023-04-17] MEDS: Amiodarone 200 MG Tablet PO (08:41)
[2023-04-17] MEDS: Metoprolol Tartrate 50 MG Tablet PO ×2 (08:41→22:30)
[2023-04-17] MEDS: cloNIDine HCl 0.1 MG Tablet 0.299999999999999989 MG PO ×2 (08:41→22:30)
[2023-04-17] MEDS: APIXABAN 5 MG TABLET PO ×2 (08:41→22:30)
[2023-04-17] MEDS: Nystatin Powder 15gm Bottle 1 APPLIC TOPICAL ×2 (08:42→22:29)
[2023-04-17] MEDS: amLODIPine 10 MG Tablet PO (08:42)
[2023-04-17] MEDS: Methimazole 5 MG Tablet 20 MG PO (08:42)
[2023-04-17] MEDS: Acetaminophen 500 MG Tablet 1000 MG PO (08:49)
[2023-04-17 09:00] VITALS: BP 138/46; PULSE 58
--- NOTE | 2023-04-17 14:48 | CASEMGMT ---
Social Work SW followed up with pt. COUNTER ROLLER was present. Pt remains adamant about returning home on 04/23. COUNTER ROLLER and SW reiterated the benefits of further improvement with continued skilled therapy for a successful return home. Pt expressed understanding and reiterated plan for grandsons and son to assist pt at home outside of school/work hours. Pt states she knows Parkinson's is progressive and she wants to spend as much time at home. SUKUMAR and SW encouraged to continue thinking about SNF transfer, but this worker will respect current decision for DC home and start coordinating skilled HHC. Pt appreciative. SW to coordinate FWW through [employer]. Sent referrals to 10 skilled HHC agencies via [facility] for PT/OT/SN/IRENE/SW. Will continue to follow. Lianet Nagel BRICK BURNER SHIFT SUPERVISOR MELTING
[2023-04-17 15:58] VITALS: BP 149/50; PULSE 69; RESP 16; TEMP 36.8; O2SAT 98
[2023-04-17] MEDS: Senna/Docusate Sodium 1 Tablet 2 TABLET PO (22:29)
[2023-04-17 22:30] VITALS: BP 136/54; PULSE 72
[2023-04-17] MEDS: DiphenhydrAMINE 25 MG Capsule 50 MG PO (22:30)
[2023-04-18] MEDS: Acetaminophen 500 MG Tablet 1000 MG PO ×2 (02:13→20:52)
[2023-04-18] MEDS: cycloBENZAPRine HCl 10 MG Tablet PO ×2 (02:13→20:52)
[2023-04-18 06:17] LABS: Bedside Glucose 159 mg/dL (74-106)
[2023-04-18 07:27] LABS: Absolute Lymphocyte Count 1.91 X10^3/uL (0.83-4.51); Absolute Neutrophil Count 2.6 X10^3/uL (2.0-7.7); Basophil# 0.06 X10^3/uL; Basophil% 1.1 % (0-1); Eosinophil# 0.33 X10^3/uL; Hematocrit 35.6 % (37-47); Lymphocyte # 1.91 X10^3/ul (0.83-4.51); Lymphocyte % 34.9 % (19-41); Mean Corp Hgb Conc 30.9 g/dL (32-36); Mean Corpuscular Hgb 25.2 pg (27.0-32.0); Mean Corpuscular Volume 81.5 fL (81-99); Mean Platelet Vol. 11.9 fl (6.2-12.0); Monocyte# 0.54 X10^3/uL; Monocyte% 9.9 % (0-10); NRBC Flagged by Analyzer 0 % (0-5); Neutrophil # 2.61 X10^3/uL (2.7-7.7); Neutrophil % 47.7 % (47-70); Platelet Count 180 K/mm3 (150-450); RBC Distribution Width CV 15.2 % (11.6-14.6); RBC Distribution Width SD 44.8 fl (35.1-43.9); Red Blood Count 4.37 M/mm3 (4.2-5.4); White Blood Count 5.5 K/mm3 (4.4-11.0)
[2023-04-18 07:57] LABS: Anion Gap 3 (5-15); BUN 29 mg/dL (7-18); BUN/Creat Ratio 24.2 RATIO (10-20); Calcium,Total 9.4 mg/dL (8.5-10.1); Chloride 108 mmol/L (98-107); EST Glomerular Filtration Rate 48 mL/min (>60); Est Glom Filt Rate - Afr Amer 58 mL/min (>60); Estimated Creatinine Clearance 52.85 ml/min; Glucose 167 mg/dL (74-106); Potassium 4.6 mmol/L (3.5-5.1); Sodium Level 139 mmol/L (136-145)
[2023-04-18] MEDS: APIXABAN 5 MG TABLET PO ×2 (08:20→20:52)
[2023-04-18] MEDS: Nystatin Powder 15gm Bottle 1 APPLIC TOPICAL ×2 (08:20→20:57)
[2023-04-18] MEDS: Magnesium Chloride 64 MG Delay Rel.Tablet 128 MG PO (08:20)
[2023-04-18] MEDS: cloNIDine HCl 0.1 MG Tablet 0.299999999999999989 MG PO ×2 (08:20→20:52)
[2023-04-18] MEDS: Amiodarone 200 MG Tablet PO (08:20)
[2023-04-18] MEDS: amLODIPine 10 MG Tablet PO (08:21)
[2023-04-18] MEDS: Senna/Docusate Sodium 1 Tablet 2 TABLET PO ×2 (08:21→20:53)
[2023-04-18] MEDS: Methimazole 5 MG Tablet 20 MG PO (08:21)
[2023-04-18] MEDS: DiphenhydrAMINE 25 MG Capsule PO (08:21)
[2023-04-18 08:26] VITALS: PULSE 55
[2023-04-18] MEDS: Metoprolol Tartrate 50 MG Tablet PO ×2 (08:26→20:52)
[2023-04-18 14:56] VITALS: BP 132/49; PULSE 55; RESP 16; TEMP 36.2; O2SAT 96
[2023-04-18 20:52] VITALS: BP 148/59; PULSE 78
[2023-04-18] MEDS: DiphenhydrAMINE 25 MG Capsule 50 MG PO (20:53)
[2023-04-18 21:00] VITALS: PULSE 78; RESP 16; O2SAT 97
--- NOTE | 2023-04-19 01:30 | NURSING ---
Patient put call light on, stating that her dexcom alarmed and that her blood sugar was currently at 55. Checked her blood sugar with our glucometer and result was 162. Snack was given. Will continue to monitor.
[2023-04-19 01:37] LABS: Bedside Glucose 162 mg/dL (74-106)
[2023-04-19 06:43] LABS: Bedside Glucose 176 mg/dL (74-106)
[2023-04-19 07:51] LABS: Anion Gap 3 (5-15); BUN 32 mg/dL (7-18); BUN/Creat Ratio 27.6 RATIO (10-20); Calcium,Total 9.7 mg/dL (8.5-10.1); Chloride 109 mmol/L (98-107); Creatinine, Serum 1.16 mg/dL (0.55-1.02); EST Glomerular Filtration Rate 50 mL/min (>60); Est Glom Filt Rate - Afr Amer 60 mL/min (>60); Estimated Creatinine Clearance 54.67 ml/min; Glucose 177 mg/dL (74-106); Potassium 4.3 mmol/L (3.5-5.1); Sodium Level 139 mmol/L (136-145)
[2023-04-19] MEDS: cloNIDine HCl 0.1 MG Tablet 0.299999999999999989 MG PO ×2 (08:24→22:10)
[2023-04-19 08:25] VITALS: BP 116/49; PULSE 59
[2023-04-19] MEDS: Metoprolol Tartrate 50 MG Tablet PO ×2 (08:25→22:09)
[2023-04-19] MEDS: Amiodarone 200 MG Tablet PO (08:25)
[2023-04-19] MEDS: Magnesium Chloride 64 MG Delay Rel.Tablet 128 MG PO (08:25)
[2023-04-19] MEDS: APIXABAN 5 MG TABLET PO ×2 (08:25→22:10)
[2023-04-19] MEDS: Methimazole 5 MG Tablet 20 MG PO (08:26)
[2023-04-19] MEDS: Senna/Docusate Sodium 1 Tablet 2 TABLET PO ×2 (08:26→22:09)
[2023-04-19] MEDS: Nystatin Powder 15gm Bottle 1 APPLIC TOPICAL ×2 (08:26→22:10)
[2023-04-19] MEDS: amLODIPine 10 MG Tablet PO (08:26)
[2023-04-19] MEDS: DiphenhydrAMINE 25 MG Capsule PO (08:27)
[2023-04-19 10:00] VITALS: RESP 18; O2SAT 96
[2023-04-19 14:49] VITALS: BP 117/65; PULSE 51; RESP 14; TEMP 36.9; O2SAT 96
[2023-04-19 22:09] VITALS: BP 150/53; PULSE 67
[2023-04-19] MEDS: DiphenhydrAMINE 25 MG Capsule 50 MG PO (22:09)
[2023-04-20] MEDS: Acetaminophen 500 MG Tablet 1000 MG PO ×2 (06:07→21:41)
[2023-04-20 06:41] LABS: Bedside Glucose 164 mg/dL (74-106)
[2023-04-20] MEDS: Amiodarone 200 MG Tablet PO (08:13)
[2023-04-20] MEDS: APIXABAN 5 MG TABLET PO ×2 (08:13→21:42)
[2023-04-20] MEDS: Magnesium Chloride 64 MG Delay Rel.Tablet 128 MG PO (08:13)
[2023-04-20] MEDS: cloNIDine HCl 0.1 MG Tablet 0.299999999999999989 MG PO ×2 (08:13→21:41)
[2023-04-20 08:14] VITALS: BP 167/65; PULSE 61
[2023-04-20] MEDS: Metoprolol Tartrate 50 MG Tablet PO ×2 (08:14→21:40)
[2023-04-20] MEDS: amLODIPine 10 MG Tablet PO (08:14)
[2023-04-20] MEDS: Senna/Docusate Sodium 1 Tablet 2 TABLET PO ×2 (08:14→21:41)
[2023-04-20] MEDS: Nystatin Powder 15gm Bottle 1 APPLIC TOPICAL ×2 (08:15→21:47)
[2023-04-20] MEDS: Methimazole 5 MG Tablet 20 MG PO (08:16)
[2023-04-20 16:00] VITALS: BP 134/58; PULSE 54; RESP 16; TEMP 36.9; O2SAT 98
[2023-04-20 21:40] VITALS: BP 135/50; PULSE 69
[2023-04-20] MEDS: cycloBENZAPRine HCl 10 MG Tablet PO (21:41)
[2023-04-20] MEDS: DiphenhydrAMINE 25 MG Capsule 50 MG PO (21:42)
[2023-04-21 01:50] LABS: Bedside Glucose 164 mg/dL (74-106)
[2023-04-21 06:05] LABS: Bedside Glucose 148 mg/dL (74-106)
[2023-04-21] MEDS: DiphenhydrAMINE 25 MG Capsule PO (08:18)
[2023-04-21] MEDS: cloNIDine HCl 0.1 MG Tablet 0.299999999999999989 MG PO ×2 (08:18→20:43)
[2023-04-21 08:19] VITALS: BP 125/74; PULSE 64
[2023-04-21] MEDS: Metoprolol Tartrate 50 MG Tablet PO ×2 (08:19→20:42)
[2023-04-21] MEDS: APIXABAN 5 MG TABLET PO ×2 (08:19→20:43)
[2023-04-21] MEDS: Amiodarone 200 MG Tablet PO (08:19)
[2023-04-21] MEDS: Magnesium Chloride 64 MG Delay Rel.Tablet 128 MG PO (08:19)
[2023-04-21] MEDS: Methimazole 5 MG Tablet 20 MG PO (08:20)
[2023-04-21] MEDS: Nystatin Powder 15gm Bottle 1 APPLIC TOPICAL ×2 (08:20→20:46)
[2023-04-21] MEDS: Senna/Docusate Sodium 1 Tablet 2 TABLET PO ×2 (08:20→20:43)
[2023-04-21] MEDS: amLODIPine 10 MG Tablet PO (08:20)
--- NOTE | 2023-04-21 12:49 | CASEMGMT ---
Addendum entered by Lianet Nagel 04/23/23 15:36: LETICIA spoke with Balaji at [facility] to update on pt information and DC plans. Addendum entered by Lianet Nagel 04/21/23 15:38: The two final agencies, including [facility], denied. SW spoke with pt to update and reiterated SNF. Pt denied. Offered OP therapy. Pt denied. SW educated to pt contacting PCP for OP order, if pt changes her mind. Pt expressed understanding. SW spoke to [place] [facility] [phone] to update and CM agreed for this worker to refer to [facility]PS. SW to phone referral and fax DC instructions to CM. Original Note: Social Work SW has not yet received an accepting [facility] agency. SW spoke with pt and inquired again about SNF transfer. Pt denied and did acknowledge having issues prior with securing a C agency. Pt reiterated her plan for her grandsons and son to assist pt at home outside of work and school hours. Son to transport at [place]. SW updated pt that pt is not eligible for another FWW through insurance and offered to pay OOP. Pt denied and stated son will locate a walker for pt to use. SW to update pt on HHC outcome. Will continue to attempt. BIMS () and PHQ-2 () completed for MDS assessment. Plan: DC home alone 04/23, pending acceptance from a [facility] agency with PT/OT/SN/TETO/LETICIA Nagel, LUL GEORGEW
[2023-04-21 13:57] VITALS: BP 162/66; PULSE 62; RESP 18; TEMP 36.3; O2SAT 100
[2023-04-21 14:36] VITALS: BMI 39.4
--- NOTE | 2023-04-21 19:29 | DS.PCM_ITS ---
Providers Date of Admission: 04/03/23 Primary Care Physician: Dr. Cynthia Mosqueda MD Reason For Visit: AFIB WITH RVR, DEBILITY, FALLS Diagnosis Discharge Diagnosis (1) Debility: Status: Acute Code(s): R53.81 - Other malaise (2) Atrial flutter: Status: Resolved Code(s): I48.92 - Unspecified atrial flutter (3) Multiple falls: Status: Acute Code(s): R29.6 - Repeated falls (4) Tremor: Status: Acute Code(s): R25.1 - Tremor, unspecified (5) Parkinson disease: Status: Acute Code(s): G20.A1 - Parkinson's disease without dyskinesia, without mention of fluctuations (6) HTN (hypertension): Status: Chronic Code(s): I10 - Essential (primary) hypertension Qualifiers: Hypertension type: essential hypertension Qualified Code(s): I10 - Essential (primary) hypertension (7) Leg cramps: Status: Acute Code(s): R25.2 - Cramp and spasm (8) Diabetes mellitus type II, controlled: Status: Acute Code(s): E11.9 - Type 2 diabetes mellitus without complications (9) Anxiety: Status: Acute Code(s): F41.9 - Anxiety disorder, unspecified (10) Overactive bladder: Status: Acute Code(s): N32.81 - Overactive bladder (11) Depression: Status: Acute Code(s): F32.9 - Major depressive disorder, single episode, unspecified (12) Asthma: Status: Chronic Code(s): J45.909 - Unspecified asthma, uncomplicated Plan 67 year old female with below past medical history hospitalized for falls, atrial flutter, hyperthyroidism, admitted to TCU with debility, here for rehabilitation, strengthening, prior to discharge home alone. * Debility - PT/OT. * Pain - Tylenol 1000mg q6 prn pain (1-10). * Bowel - senna/colace 1 tablet bid, Magnesium citrate 300ml daily prn. * Adult immunization - Administer pneumonia vaccine, covid vaccine, flu vaccine as appropriate. * DVT prophylaxis - on Eliquis. * Parkinson Disease - f/u Dr. Andrade at discharge. * Atrial Fibrillation - Metoprolol 25mg bid, Amiodarone 200mg bid thru 04/08/2023, then 200mg daily, Eliquis 5mg bid. * Hypertension - Metoprolol 25mg bid, Amlodipine 10mg daily, Clonidine 0.3mg bid. * Leg cramps - Flexeril 10mg qhs prn. * Allergic rhinitis/Allergic conjunctivitis/insomnia - Benadryl 25mg bid prn, Benadryl 50mg qhs prn. * Diabetes Mellitus II - Glargine 56 units daily. * Hyperthyroidism - Methimazole 40mg daily thru 04/05/2023, then 20mg daily, repeat TSH, Free T4, T3 04/16/2023. Medications at Discharge Home Medications amlodipine 10 mg tablet 1 tab PO DAILY BLOOD PRESSURE 05/27/17 clonidine HCl 0.3 mg tablet 1 tab PO BID BLOOD PRESSURE 05/27/17 cyclobenzaprine 10 mg tablet 10 mg PO QHS PRN LEG CRAMPS 05/27/17 insulin degludec 200 unit/mL (3 mL) subcutaneous pen (Tresiba FlexTouch U-200 insulin) 56 unit subcut QHS DIABETES 09/21/20 acetaminophen 500 mg tablet 1,000 mg (2 x 500 mg) PO Q6H PRN PRN Pain Score 1-10 #0 tabs 04/21/23 amiodarone 200 mg tablet 200 mg PO DAILY afib 30 days #30 tabs 04/21/23 apixaban 5 mg tablet (Eliquis) 5 mg PO BID blood thinner 30 days #60 tabs magnesium chloride 64 mg (magnesium chloride) tablet,delayed release (Mag 64) 128 mg (2 x 64 mg) PO DAILY 30 days #60 tabs 04/21/23 methimazole 10 mg tablet 20 mg (2 x 10 mg) PO DAILY thyroid 30 days #60 tabs 04/21/23 metoprolol tartrate 25 mg tablet 25 mg PO BID heart/pulse 30 days #60 tabs 04/21/23 Hospital Course Operations None Procedures None Summary of Care Provided Minutes Spent on Discharge: 35 Hospital Course: 67 year old female with below past medical history hospitalized for falls, atrial flutter, hyperthyroidism, admitted to TCU with debility, here for rehabilitation, strengthening, prior to discharge home alone. Discharge home alone 04/23/2023, pending acceptance from [facility] agency with PT/OT/SN/IRENE/SW. Physical Exam Const alert General Appearance: cooperative HEENT normocephalic Eyes PERRL and EOMs intact bilaterally Neck supple, no JVD and no carotid bruits Resp normal respiratory effort, normal air movement and clear to auscultation bilaterally Cardio regular rate and regular rhythm GI normal to inspection, nondistended, normoactive bowel sounds, non-tender and non-distended Extremity normal capillary refill General Extremity: Negative for edema Skin no rashes or lesions noted General Skin Exam: no breakdown Psych affect normal Appearance: appropriate Weight / BMI Weight Weight: 101.015 kg Body Mass Index (BMI) 39.4 ABG / Lab / Microbiology Data 04/18/23 06:27 04/19/23 06:54 Laboratory: Laboratory Results - last 24 hr 04/21/23 01:32: POC Glucose 164 H 04/21/23 05:28: POC Glucose 148 H Microbiology: Microbiology 04/13/23 08:10 Nasal Secretion SARS-CoV-2 Antigen (Rapid) - Final 04/09/23 05:25 Nasal Secretion SARS-CoV-2 Antigen (Rapid) - Final 04/06/23 04:10 Nasal Secretion SARS-CoV-2 Antigen (Rapid) - Final D/C Instructions Discharge Diet: No restrictions Discharge Activity: Return to Normal Activity, May Shower and Use Walker Weight Bearing Status: Weight bearing as tolerated Call your doctor if you observe: Fever of 101 or Higher, Inability to urinate, Inability to have a bowel movement, Shortness of breath, Dizziness, Fainting spells, Swelling in the ankles, Chest pain and Uncontrolled pain Additional Instructions: Discharge home alone 04/23/2023, pending acceptance from [facility] agency with PT/OT/SN/IRENE/SW. Please Follow Up With: Chris Simmons MD When: As soon as possible. Meaningful Use Info Meaningful Use Diagnoses (Choose all that apply): None applicable Discharge Plan Admission Admit Date/Time: 04/03/23 12:01 Primary Reason for Your Visit: Debility. Attending Provider: Troy Gallo Chi Primary Care Provider: Cynthia Mosqueda Instructions Additional Instructions / Restrictions: Discharge home alone 04/23/2023, pending acceptance from [facility] agency with PT/OT/SN/IRENE/SW. Discharge Orders/Prescriptions Prescriptions: New acetaminophen 500 mg Tablet 1,000 mg PO Q6H PRN PRN (Reason: Pain Score 1-10) Qty: 0 0RF Mag 64 64 mg Tablet,Delayed Release (Dr/Ec) 128 mg PO DAILY 30 Days Qty: 60 0RF Continued clonidine HCl 0.3 MG tablet 1 tab PO BID amlodipine 10 MG tablet 1 tab PO DAILY cyclobenzaprine 10 MG tablet 10 mg PO QHS PRN (Reason: LEG CRAMPS) insulin degludec [Tresiba FlexTouch U-200] 200 unit/mL (3 mL) Insulin Pen 56 unit SUBCUT QHS Patient Comments: 03/31 has not taken for 3 days d/t hypoglycemia/anorexia amiodarone 200 mg Tablet 200 mg PO DAILY 30 Days Qty: 30 0RF Rx Instructions: Start when BID amiodarone is completed methimazole 10 mg tablet 20 mg PO DAILY 30 Days Qty: 60 0RF metoprolol tartrate 25 mg Tablet 25 mg PO BID 30 Days Qty: 60 0RF Eliquis 5 mg Tablet 5 mg PO BID 30 Days Qty: 60 0RF Discontinued aspirin [Adult Low Dose Aspirin] 81 mg tablet,delayed release (DR/EC) 81 mg PO DAILY diphenhydramine HCl [Allergy (diphenhydramine)] 25 mg capsule 50 mg PO QHS diclofenac sodium 75 mg tablet,delayed release (DR/EC) 75 mg PO .COMPLEX Rx Instructions: 75 mg orally bid for 2 days, then none for 3 days; ibuprofen [IBU] 800 mg tablet 800 mg PO DAILY PRN (Reason: headache) amiodarone 200 mg Tablet 200 mg PO BID 5 Days Qty: 0 0RF methimazole 5 mg Tablet 40 mg PO DAILY 3 Days Qty: 24 0RF Referrals / Follow Up: Eusebia Andrade MD [Non-Staff -Ordering Privileges] - Cynthia Mosqueda MD [Primary Care Provider] - 04/28/23 10:40 am Chris Simmons MD [Med Staff - Courtesy Staff] - (Need TSH, T3 & T4 drawn prior to visit) Marisol Gan PA [Med Staff - Adv Practice Prof] - 05/04/23 9:30 am Disposition Disposition (needs filled in before D/C Order can be placed): [facility]
[2023-04-21 20:42] VITALS: BP 144/60; PULSE 63
[2023-04-21] MEDS: DiphenhydrAMINE 25 MG Capsule 50 MG PO (20:43)
[2023-04-22] MEDS: cycloBENZAPRine HCl 10 MG Tablet PO ×2 (01:55→21:01)
[2023-04-22] MEDS: Acetaminophen 500 MG Tablet 1000 MG PO ×2 (01:55→21:01)
[2023-04-22 06:07] LABS: Bedside Glucose 150 mg/dL (74-106)
[2023-04-22] MEDS: Amiodarone 200 MG Tablet PO (09:09)
[2023-04-22] MEDS: cloNIDine HCl 0.1 MG Tablet 0.299999999999999989 MG PO ×2 (09:09→21:02)
[2023-04-22] MEDS: APIXABAN 5 MG TABLET PO ×2 (09:09→21:02)
[2023-04-22] MEDS: Senna/Docusate Sodium 1 Tablet 2 TABLET PO ×2 (09:10→21:02)
[2023-04-22] MEDS: amLODIPine 10 MG Tablet PO (09:10)
[2023-04-22] MEDS: Magnesium Chloride 64 MG Delay Rel.Tablet 128 MG PO (09:10)
[2023-04-22] MEDS: Methimazole 5 MG Tablet 20 MG PO (09:11)
[2023-04-22] MEDS: Nystatin Powder 15gm Bottle 1 APPLIC TOPICAL ×2 (09:13→21:03)
[2023-04-22 09:14] VITALS: BP 148/70; PULSE 72
[2023-04-22] MEDS: Metoprolol Tartrate 50 MG Tablet PO ×2 (09:14→21:02)
[2023-04-22 15:05] VITALS: BP 120/60; PULSE 58; RESP 15; TEMP 37.2; O2SAT 96
[2023-04-22 20:59] VITALS: BP 137/60; PULSE 70
[2023-04-22 21:02] VITALS: PULSE 70
[2023-04-22] MEDS: DiphenhydrAMINE 25 MG Capsule 50 MG PO (21:02)
[2023-04-23 06:18] LABS: Bedside Glucose 154 mg/dL (74-106)
[2023-04-23] MEDS: Acetaminophen 500 MG Tablet 1000 MG PO (06:42)
[2023-04-23] MEDS: cloNIDine HCl 0.1 MG Tablet 0.299999999999999989 MG PO (08:46)
[2023-04-23] MEDS: Amiodarone 200 MG Tablet PO (08:46)
[2023-04-23] MEDS: amLODIPine 10 MG Tablet PO (08:46)
[2023-04-23] MEDS: APIXABAN 5 MG TABLET PO (08:46)
[2023-04-23] MEDS: Magnesium Chloride 64 MG Delay Rel.Tablet 128 MG PO (08:46)
[2023-04-23 08:47] VITALS: BP 112/59; PULSE 73
[2023-04-23] MEDS: Methimazole 5 MG Tablet 20 MG PO (08:47)
[2023-04-23] MEDS: Metoprolol Tartrate 50 MG Tablet PO (08:47)
[2023-04-23] MEDS: Senna/Docusate Sodium 1 Tablet 2 TABLET PO (08:47)
[2023-04-23] MEDS: Nystatin Powder 15gm Bottle 1 APPLIC TOPICAL (08:55)
[2023-04-23 15:06] VITALS: BP 112/59; PULSE 73; RESP 18; TEMP 36.6; O2SAT 95
== END 2023-04-23 15:09 | disposition home or self-care (01) | DRG 644 ==
PROVIDERS: Admitting Provider Family Medicine Geriatric Medicine; PCP Internal Medicine; Referring Provider Family Medicine Geriatric Medicine; Visit Provider Family Medicine Geriatric Medicine
DX: E05.90 Thyrotoxicosis, unspecified without thyrotoxic crisis or storm (principal); I48.92 Unspecified atrial flutter; G20.A1 Parkinson's disease without dyskinesia, without mention of fluctuations; E11.9 Type 2 diabetes mellitus without complications; I48.0 Paroxysmal atrial fibrillation; Z79.4 Long term (current) use of insulin; J45.909 Unspecified asthma, uncomplicated; I10 Essential (primary) hypertension; E78.5 Hyperlipidemia, unspecified; H10.10 Acute atopic conjunctivitis, unspecified eye; R25.2 Cramp and spasm; N32.81 Overactive bladder; Z79.899 Other long term (current) drug therapy; G47.00 Insomnia, unspecified; Z23 Encounter for immunization; R29.6 Repeated falls
CPT/HCPCS: 36415; 80048; 82962; 85025; 87811; 90677; 92507; 92523; 97110; 97116; 97129; 97130; 97162; 97166; 97530; 97535; 97802; G0009; A4216

== ENCOUNTER 2023-05-08 19:18 | Emergency (ER) | payer MEDICARE, SELFPAY ==
[2023-05-08 19:19] VITALS: BP 160/103; PULSE 65; RESP 14; TEMP 36.3; O2SAT 97
--- NOTE | 2023-05-08 19:34 | EDS_ITS ---
HPI History of Present Illness Chief Complaint: Allergic Reaction Informant: patient and family Narrative Narrative: Presents concern allergic reaction to pineapple and apples that were cooked. She states has an allergy to raw pineapples and apples. She ate this 2 hours ago that was cooked. She felt some throat swelling shortly afterwards. She does not take any medications. She called her PCP was told to go to the ED. Reports currently symptoms are slightly subsiding. Multiple allergies. Is tolerated prednisone in the past. She is a diabetic. Glucose in the 100s today. Prior similar symptoms: Yes PFSH [facility] Medical History Anxiety Asthma Depression Diabetes History of left heart catheterization Hyperlipidemia Hypertension Non-smoker Thyrotoxicosis due to Graves' disease Tremor Home Medications amlodipine 10 mg tablet 1 tab PO DAILY BLOOD PRESSURE 05/27/17 [History Last Taken 04/03/23] clonidine HCl 0.3 mg tablet 1 tab PO BID BLOOD PRESSURE 05/27/17 [History Last Taken 04/03/23] cyclobenzaprine 10 mg tablet 10 mg PO QHS PRN LEG CRAMPS 05/27/17 [History Last Taken 04/02/23] insulin degludec 200 unit/mL (3 mL) subcutaneous pen (Tresiba FlexTouch U-200 insulin) 56 unit subcut QHS DIABETES 09/21/20 [History Last Taken Unknown] acetaminophen 500 mg tablet 1,000 mg (2 x 500 mg) PO Q6H PRN PRN Pain Score 1-10 #0 tabs 04/21/23 [Rx Last Taken Unknown] magnesium chloride 64 mg (magnesium chloride) tablet,delayed release (Mag 64) 128 mg (2 x 64 mg) PO DAILY 30 days #60 tabs 04/21/23 [Rx Last Taken Unknown] oxybutynin chloride 15 mg tablet,extended release 24 hr 15 mg PO BID 05/01/23 [History Last Taken Unknown] apixaban 5 mg tablet (Eliquis) 5 mg PO BID blood thinner #180 tabs 05/04/23 [Rx Last Taken Unknown] metoprolol tartrate 25 mg tablet 25 mg PO BID heart/pulse #180 tabs 05/04/23 [Rx Last Taken Unknown] famotidine 20 mg tablet 20 mg PO BID #10 TABLETS 05/08/23 [Rx Last Taken Unknown] methimazole 10 mg tablet 15 mg (1.5 x 10 mg) PO DAILY thyroid 30 days #45 tabs 05/08/23 [Rx Last Taken Unknown] prednisone 20 mg tablet 40 mg (2 x 20 mg) PO DAILY #8 TABLETS 05/08/23 [Rx Last Taken Unknown] Allergy/AdvReac Type Severity Reaction Status Date / Time adhesive tape Allergy Other Verified 05/08/23 19:19 apple Allergy Swelling Verified 05/08/23 19:19 cephalexin monohydrate Allergy Other Verified 05/08/23 19:19 [From Keflex] ciprofloxacin [From Cipro] Allergy Hives Verified 05/08/23 19:19 ciprofloxacin HCl Allergy Hives Verified 05/08/23 19:19 [From Cipro] citalopram hydrobromide Allergy Unknown Verified 05/08/23 19:19 [From Celexa] clarithromycin [From Biaxin] Allergy Unknown Verified 05/08/23 19:19 codeine Allergy Unknown Verified 05/08/23 19:19 diltiazem HCl [From Cardizem] Allergy Unknown Verified 05/08/23 19:19 fluoxetine HCl [From Prozac] Allergy Unknown Verified 05/08/23 19:19 fluticasone Allergy Swelling Verified 05/08/23 19:19 [From Advair Diskus] fluticasone propionate Allergy Other Verified 05/08/23 19:19 [From Advair Diskus] hydrochlorothiazide Allergy Unknown Verified 05/08/23 19:19 [From Hyzaar] ipratropium bromide Allergy Unknown Verified 05/08/23 19:19 [From Atrovent] labetalol Allergy Rash Verified 05/08/23 19:19 lamotrigine [From Lamictal] Allergy Unknown Verified 05/08/23 19:19 latex Allergy Unknown Verified 05/08/23 19:19 liraglutide [From Victoza] Allergy Unknown Verified 05/08/23 19:19 losartan potassium Allergy Unknown Verified 05/08/23 19:19 [From Hyzaar] meloxicam [From Mobic] Allergy Other Verified 05/08/23 19:19 nitrofurantoin Allergy Hives Verified 05/08/23 19:19 [From Macrobid] nitrofurantoin Allergy Hives Verified 05/08/23 19:19 macrocrystalline [From Macrobid] Penicillins Allergy Rash Verified 05/08/23 19:19 pineapple Allergy Other Verified 05/08/23 19:19 quetiapine fumarate Allergy Unknown Verified 05/08/23 19:19 [From Seroquel] salmeterol Allergy Swelling Verified 05/08/23 19:19 [From Advair Diskus] salmeterol xinafoate Allergy Other Verified 05/08/23 19:19 [From Advair Diskus] sertraline HCl [From Zoloft] Allergy Unknown Verified 05/08/23 19:19 simvastatin [From Zocor] Allergy Unknown Verified 05/08/23 19:19 topiramate [From Topamax] Allergy Unknown Verified 05/08/23 19:19 verapamil HCl Allergy Unknown Verified 05/08/23 19:19 [From Covera-HS] zonisamide [From Zonegran] Allergy Shortness Verified 05/08/23 19:19 of breath acetaminophen [From Lortab] AdvReac Nausea Verified 05/08/23 19:19 hydrocodone bitartrate AdvReac Nausea Verified 05/08/23 19:19 [From Lortab] ramipril [From Altace] AdvReac Laryngospas Verified 05/08/23 19:19 ms sulfamethoxazole AdvReac Unknown Verified 05/08/23 19:19 [From Septra] trimethoprim [From Septra] AdvReac Unknown Verified 05/08/23 19:19 Surgical History History of bladder repair surgery History of carpal tunnel release History of cholecystectomy History of hysterectomy Social History household members: none housing: apartment current occupational status: disabled current occupation: Patient is disabled due to Parkinson's disease Smoking Status: Never smoker alcohol intake: never substance use type: does not use ROS ROS ED Constitutional Constitutional ED: Denies chills, fever(s) or sweats Eyes Eyes: Denies change in vision ENT ENT ED: Reports other Details: Reports swelling in throat ; Denies dysphagia or sore throat Cardiovascular Cardiovascular: Denies chest pain, leg edema, palpitations or racing heartbeat Respiratory/Chest Respiratory/Chest: Denies cough, dyspnea or dyspnea on exertion Gastrointestinal Gastrointestinal: Denies abdominal pain, diarrhea, nausea or vomiting Genitourinary Genitourinary ED: Denies dysuria, hematuria or urinary frequency Musculoskeletal Musculoskeletal: Denies back pain, extremity pain or neck pain Integumentary Denies rash or wounds Neurologic Neurologic: Denies headache(s), paresthesias or weakness EXAM Physical Exam Const Vital Signs: 05/08/23 19:19 Temperature 97.3 F L Temperature Source Temporal Pulse Rate 65 Respiratory Rate 14 Blood Pressure 160/103 H Blood Pressure Mean 122 Pulse Ox 97 Oxygen Delivery Method Room Air Positive well nourished and well developed General Appearance ED: well developed and NAD HEENT Reports moist mucous membranes HEENT Narrative: No objective swelling of the tongue or lips. Airway patent. No stridor. normocephalic and atraumatic Eyes PERRL, EOMs intact bilaterally and conjunctivae normal General Eye ED: Yes normal appearance of both eyes Neck no lymphadenopathy and supple General: Negative for tenderness Chest Wall Chest: Negative for tenderness Resp normal respiratory effort and normal air movement Effort and Inspection: symmetric chest movement; Negative for respiratory distress Cardio regular rate, regular rhythm and no murmurs Peripheral Pulses: pulses 2+ throughout GI normal to inspection, nondistended, normoactive bowel sounds and non-tender Palpation: Negative for guarding or rebound tenderness present Back/Spine no CVA tenderness and no thoracic nor lumbar tenderness Extremity normal to inspection General Extremety ED: Negative for edema or tenderness General Extremity: Negative for edema Neuro oriented x3 and no sensory deficits noted Sensorium / Orientation: awake and alert Skin no rashes or lesions noted and no wounds Skin Narrative: No urticarial lesions. MDM MDM MDM Narrative Medical decision making narrative: Interventions / MDM: Differential diagnosis: Allergic reaction Diagnosis considered but do not suspect: N/A My EKG interpretation: N/A Imaging independently reviewed and interpreted by myself: N/A External documents reviewed: N/A Test considered but not ordered:N/A ED course: Vital stable nontoxic no objective swelling noted. Reports symptoms are slight subsiding. Placed on the monitor. Give oral Benadryl, prednisone, Pepcid. Will check blood glucose level. 2024: Blood glucose 200. Clinically starting to feel better. Will continue to monitor. 2099: Symptoms improved. She has Benadryl at home to use as needed. Will prescribe prednisone and Pepcid, she will monitor her blood glucose. Outpatient follow-up with her doctor. All questions were answered. Re-evaluation: stable Disposition discussed with patient/family/significant other: Patient Case discussed with consulting clinician: N/A This note was generated with [employer] dictation software. It may contain incorrect words, spelling, and punctuation that were not noted in checking the note before signing. Lab Data Attestation: I reviewed the patient's lab results. Labs: Laboratory Results - last 24 hr 05/08/23 19:54 POC Glucose 200 H Discharge Plan Triage Chief Complaint: Allergic Reaction ED Provider: Collins Zimmerman Dx/Rx/DC Orders Clinical Impression: Allergic reaction, Diabetes mellitus Instructions: ED General Allergic Reactions Prescriptions: New prednisone 20 mg tablet 40 mg PO DAILY Qty: 8 0RF Rx Instructions: Next dose 05/09/2023 famotidine [famotidine] 20 mg tablet 20 mg PO BID Qty: 10 0RF No Action metoprolol tartrate 25 mg tablet 25 mg PO BID Qty: 180 3RF Eliquis 5 mg tablet 5 mg PO BID Qty: 180 3RF oxybutynin chloride 15 mg tablet extended release 24hr 15 mg PO BID clonidine HCl 0.3 MG tablet 1 tab PO BID amlodipine 10 MG tablet 1 tab PO DAILY cyclobenzaprine 10 MG tablet 10 mg PO QHS PRN (Reason: LEG CRAMPS) insulin degludec [Tresiba FlexTouch U-200] 200 unit/mL (3 mL) Insulin Pen 56 unit SUBCUT QHS Patient Comments: 03/31 has not taken for 3 days d/t hypoglycemia/anorexia acetaminophen 500 mg Tablet 1,000 mg PO Q6H PRN PRN (Reason: Pain Score 1-10) Qty: 0 0RF Mag 64 64 mg Tablet,Delayed Release (Dr/Ec) 128 mg PO DAILY 30 Days Qty: 60 0RF methimazole 10 mg tablet 15 mg PO DAILY 30 Days Qty: 45 1RF Primary Care Provider: Kirill Sol Referrals: Kirill Sol MD [Primary Care Provider] - 1 Week Activity Restrictions/Additional Instructions: Allergic food reaction. Continue prednisone and Pepcid as prescribed. Use Benadryl 25 mg every 6 hours as needed. Follow-up with your doctor. Disposition Disposition: Home, Self Care
[2023-05-08] MEDS: predniSONE 20 MG Tablet 40 MG PO (19:44)
[2023-05-08] MEDS: Famotidine 20 MG Tablet PO (19:44)
[2023-05-08] MEDS: DiphenhydrAMINE 25 MG Capsule PO (19:46)
[2023-05-08 19:50] VITALS: BMI 42.3
[2023-05-08 20:10] LABS: Bedside Glucose 200 mg/dL (74-106)
--- OUTSIDE RECORDS SUMMARY | 2023-05-08 20:18 | XMS RPT_ITS | CCD ---
Author Name Unknown Address [address] [place] [address] Organization [facility] Care Team Providers Care Director Food And Beverage Name Role Phone Sagrario Mosqeuda MD Primary Care Provider Maria Antonia Susie fernandez Unavailable Sagrario Mosqueda MD Primary Care Provider CHRIS, SAGRARIO D Primary Care Unavailable MARIANELA SHEARER Attending Unavailable RICARDO BENEDICT Referring Unavailable TALAMPAS, SAGRARIO D Primary Care Unavailable RICARDO BENEDICT Attending Unavailable TALAMPAS, SAGRARIO D Primary Care Unavailable TALAMPAS, SAGRARIO D Attending Unavailable TALAMPAS, SAGRARIO D Primary Care Unavailable FAITH RAYGOZA Referring Unavailable TALAMPAS, SAGRARIO [...] FAITH RAYGOZA Attending Unavailable TALAMPAS, SAGRARIO D Attending Unavailable TALAMPAS, SAGRARIO D Primary Care Unavailable Allergies Allergy Classification Reported Allergen(s) Allergy Type Date of Onset Reaction(s) Facility (20 sources) Acetaminophen / HYDROcodone; Translations: [HYDROCODONE-ACETAMINO PHEN] Drug Allergy 11-06-19 06 Mental Status Change [facility] Work Phone: (20 sources) Adhesive Tape; Translations: [ADHESIVE TAPE (ROSINS)] Allergy to substance 11-25-19 06 Rash [facility] Work Phone: (20 sources) Cephalexin; Translations: [CEPHALEXIN] Drug Allergy 11-06-19 Itching [facility] Work Phone: (20 sources) Ciprofloxacin; Translations: [CIPROFLOXACIN] Drug Allergy 03-22-19 16 Rash, Other: See Comments [facility] (20 sources) Citalopram; Translations: [CITALOPRAM HYDROBROMIDE] Drug Allergy 07-07-19 07 [facility] Work Phone: [phone] (20 sources) Clarithromycin; Translations: [CLARITHROMYCIN] Drug Allergy 11-06-19 Mental Status Change [facility] Work Phone: (20 sources) Codeine; Translations: [CODEINE] Drug Allergy 11-06-19 Rash [facility] Work Phone: (20 sources) dilTIAZem; Translations: [DILTIAZEM HCL] Drug Allergy 11-06-19 Anaphylaxis [facility] Work Phone: (20 sources) FLUoxetine; Translations: [FLUOXETINE HCL] Drug Allergy 05-14-19 07 Shortness of Breath [facility] (20 sources) fluticasone / salmeterol; Translations: [FLUTICASONE PROPION-SALMETEROL] Drug Allergy 11-06-19 Swelling [facility] (20 sources) hydroCHLOROthiazide / Losartan; Translations: [LOSARTAN-HYDROCHLOROT HIAZIDE] Drug Allergy 11-06-19 [facility] Work Phone: (20 sources) Ipratropium; Translations: [IPRATROPIUM BROMIDE] Drug Allergy 11-06-19 [facility] Work Phone: (20 sources) Labetalol; Translations: [LABETALOL] Drug Allergy 11-06-19 [facility] Work Phone: (20 sources) lamoTRIgine; Translations: [LAMOTRIGINE] Drug Allergy 11-06-19 [facility] Work Phone: (20 sources) Latex; Translations: [LATEX] Drug Intolerance 07-15-19 [facility] Work Phone: (20 sources) liraglutide; Translations: [LIRAGLUTIDE] Drug Allergy 10-19-19 11 Swelling [facility] Work Phone: [phone] (20 sources) meloxicam; Translations: [MELOXICAM] Drug Allergy 01-03-20 11 Other: See Comments [facility] Work Phone: [phone] (20 sources) QUEtiapine; Translations: [QUETIAPINE FUMARATE] Drug Allergy 11-06-19 06 Shortness of Breath [facility] Work Phone: [phone] (20 sources) Ramipril; Translations: [RAMIPRIL] Drug Allergy 11-06-19 06 Anaphylaxis [facility] Work Phone: [phone] (20 sources) Sertraline; Translations: [SERTRALINE HCL] Drug Allergy 09-26-19 07 Intolerance [facility] Work Phone: [phone] (20 sources) Simvastatin; Translations: [SIMVASTATIN] Drug Allergy 07-15-19 09 Swelling [facility] (20 sources) Sulfamethoxazole / Trimethoprim; Translations: [SULFAMETHOXAZOLE-TRIM ETHOPRIM] Drug Allergy 11-06-19 06 GI Upset [facility] Work Phone: [phone] (20 sources) topiramate; Translations: [TOPIRAMATE] Drug Allergy 07-12-19 14 Other: See Comments [facility] Work Phone: [phone] (20 sources) Verapamil; Translations: [VERAPAMIL HCL] Drug Allergy 11-06-19 06 [facility] Work Phone: [phone] (20 sources) zonisamide; Translations: [ZONISAMIDE] Drug Allergy 11-06-19 06 Shortness of Breath [facility] Work Phone: [phone] (20 sources) Pineapple; Translations: [PINEAPPLE] Drug Allergy 08-30-19 21 Swelling [facility] Work Phone: [phone] (14 sources) Methenamine; Translations: [METHENAMINE] Drug Allergy 08-23-19 23 Rash, Swelling, Itching, Anaphylaxis [facility] Work Phone: [phone] (3 sources) Carbidopa / Levodopa; Translations: [CARBIDOPA-LEVODOPA] Drug Allergy 03-10-19 24 Rash, Swelling [facility] Medications Current Medications Medication Drug Class(es) Dates [...] Drug Class(es) Dates Sig (Normalized) Sig (Original) [id number] 200 actuat albuterol 0.09 mg/actuat metered dose [...] sources) Asthma; Translations: [Unspecified asthma, uncomplicated] Onset: Chronic Cardiac dysrhythmias (1 source) Atrial flutter; Translations: [Unspecified atrial flutter] 04-29-2023 Chronic Cataract (20 sources) Bilateral cortical age-related [...] without status migrainosus] Onset: 6 11-05-2005 Chronic Immunizations and screening for infectious disease (1 source) Requires varicella vaccination; Translations: [Encounter for immunization] 04-29-2023 Episodic Inflammation; infection of eye (except that caused by tuberculosis or sexually transmitteddisease) (20 sources) Bilateral punctate keratitis of eyes; Translations: [Punctate keratitis, bilateral] Onset: 8 11-03-2017 Chronic Malaise and fatigue (3 sources) Asthenia; Translations: [Weakness] Episodic Menopausal disorders [...] conditions (not mental disorders or infectious disease) (3 sources) Patient encounter status; Translations: [Encounter for [...] status; Translations: [Other drug allergy] 11-28-2014 Episodic Thyroid disorders (1 source) Hyperthyroidism; Translations: [Thyrotoxicosis, unspecified without thyrotoxic crisis or storm] 04-29-2023 Chronic Transient cerebral ischemia (3 sources) Cerebral ischemia; Translations: [Transient cerebral ischemic attack, unspecified] Onset: 3 Chronic Unclassified (1 source) Parkinson's disease; Translations: [Parkinson's disease without dyskinesia, unspecified whether manifestations fluctuate (HCC)] 04-29-2023 Chronic Past or Other Problems Problem Classification Problem Date Documented Date Episodic/Chronic Esophageal disorders (20 sources) Esophagitis; Translations: [Esophagitis, unspecified] Onset: 01-07-2012 01-07-2012 Episodic Genitourinary symptoms and ill-defined conditions (20 sources) Urgent desire to urinate; Translations: [Urgency of urination] Onset: 02-09-2008 02-09-2008 Episodic Hemorrhoids (20 sources) Internal hemorrhoids; Translations: [Other hemorrhoids] Onset: 11-05-2005 04-02-2015 Episodic Other aftercare (1 source) 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; Translations: [Type 2 diabetes mellitus with diabetic neuropathy, with long-term current use of insulin ([facility])] Onset: 05-23-2019 Episodic Other and unspecified benign [...] perineum, unspecified] Onset: 02-09-2008 02-09-2008 Episodic Other skin disorders (1 source) Corns and callosities; Translations: [Callus] Onset: 09-18-2022 Episodic Residual codes; unclassified (20 sources) Edema; Translations: [Edema, unspecified] Onset: 11-05-2005 11-05-2005 Episodic Results Test Name Value Interpretation Reference Range Facil ity Vital Signs Date Time Vital Sign Value Performing Clinician Faci lity 04-28-2023 12:03-0500 Diastolic blood pressure 70 mm[Hg] Sagrario Mosqueda MD Work Phone: [facility] 04-28-2023 12:03-0500 Heart rate 56 /min Sagrario Mosqueda MD Work Phone: [facility] 04-28-2023 12:03-0500 SaO2% (BldA) [Mass fraction] 96 % Sagrario Mosqueda MD Work Phone: [facility] 04-28-2023 12:03-0500 Systolic blood pressure 128 mm[Hg] Sagrario Mosqueda MD Work Phone: [facility] 12-26-2022 09:37-0400 Body weight 102.97 kg Ricardolillian Benedict CONCRETE PIPE [employer]ANT SUPERVISOR.BRICK MASON Work Phone: [facility] 12-26-2022 09:37-0400 Diastolic blood pressure 65 mm[Hg] Ricardo Benedict CONCRETE PIPE PLANT SUPERVISOR.BRICK MASON Work Phone: [facility] 12-26-2022 09:37-0400 Heart rate 89 /min Ricardo Benedict CONCRETE PIPE PLANT SUPERVISOR.BRICK MASON Work Phone: [facility] 12-26-2022 09:37-0400 Respiratory rate 16 /min Ricardo Benedict CONCRETE PIPE PLANT SUPERVISOR.BRICK MASON Work Phone: [facility] 12-26-2022 09:37-0400 Systolic blood pressure 146 mm[Hg] Ricardo Benedict CONCRETE PIPE PLANT SUPERVISOR.BRICK MASON Work Phone: [facility] 10-08-2022 15:31-0400 Diastolic blood pressure 70 mm[Hg] Sagrario Mosqueda MD Work Phone: [facility] 10-08-2022 15:31-0400 Systolic blood pressure 114 mm[Hg] Sagrario Mosqueda MD Work Phone: [facility] 10-08-2022 14:42-0400 Body temperature 98.6 [degF] Sagrario Mosqueda MD Work Phone: [facility] 10-08-2022 14:42-0400 Body weight 105.69 kg Sagrario Mosqueda MD Work Phone: [facility] 10-08-2022 14:42-0400 Heart rate 101 /min Sagrario Mosqueda MD Work Phone: [facility] 10-08-2022 14:42-0400 Respiratory rate 18 /min Sagrario Mosqueda MD Work Phone: [facility] 10-08-2022 14:42-0400 SaO2% (BldA) [Mass fraction] 96 % Sagrario Mosqueda MD Work Phone: [facility] 08-22-2022 08:22-0400 Diastolic blood pressure 90 mm[Hg] Rebeca Gabriela CONCRETE PIPE PLANT SUPERVISOR.[employer] OPERATOR [employer] Work Phone: [facility] 08-22-2022 08:22-0400 Systolic blood pressure 130 mm[Hg] Rebeca Gabriela CONCRETE PIPE PLANT SUPERVISOR.[employer]INERY OPERATOR [employer] Work Phone: [facility] 08-22-2022 08:20-0400 Body weight 104.78 kg Rebeca Gabriela CONCRETE PIPE PLANT SUPERVISOR.[employer]INERY OPERATOR [employer] Work Phone: [facility] 08-22-2022 08:20-0400 Heart rate 99 /min Rebeca Gabriela CONCRETE PIPE PLANT SUPERVISOR.[employer]INERY OPERATOR [employer] Work Phone: [facility] 08-22-2022 08:20-0400 SaO2% (BldA) [Mass fraction] 98 % Rebeca Gabriela CONCRETE PIPE PLANT SUPERVISOR.REFINERY OPERATOR [employer] Work Phone: [facility] 08-14-2022 14:31-0400 Diastolic blood pressure 84 mm[Hg] Faith Dahlhausen CONCRETE PIPE PLANT SUPERVISOR.REFINERY OPERATOR [employer] Work Phone: [facility] 08-14-2022 14:31-0400 Heart rate 99 /min Faith Dahlhausen CONCRETE PIPE PLANT SUPERVISOR.REFINERY OPERATOR [employer] Work Phone: [facility] 08-14-2022 14:31-0400 Systolic blood pressure 173 mm[Hg] Faith Dahlhausen CONCRETE PIPE PLANT SUPERVISOR.REFINERY OPERATOR [employer] Work Phone: [facility] 08-14-2022 13:46-0400 Body temperature 97.81 [degF] Faith Dahlhausen CONCRETE PIPE PLANT SUPERVISOR.REFINERY OPERATOR [employer] Work Phone: [facility] 08-14-2022 13:46-0400 Body weight 102.33 kg Faith Dahlhausen CONCRETE PIPE PLANT SUPERVISOR.REFINERY OPERATOR [employer] Work Phone: [facility] 08-14-2022 13:46-0400 Respiratory rate 18 /min Faith Dahlhausen CONCRETE PIPE PLANT SUPERVISOR.REFINERY OPERATOR [employer] Work Phone: [facility] 08-14-2022 13:46-0400 SaO2% (BldA) [Mass fraction] 99 % Faith Dahlhausen CONCRETE PIPE PLANT SUPERVISOR.REFINERY OPERATOR [employer] Work Phone: [facility] 04-10-2022 13:31-0500 Body temperature 97.9 [degF] Faith Dahlhausen CONCRETE PIPE PLANT SUPERVISOR.REFINERY OPERATOR [employer] Work Phone: [facility] 04-10-2022 13:31-0500 Body weight 108.14 kg Faith Dahlhausen CONCRETE PIPE PLANT SUPERVISOR.REFINERY OPERATOR [employer] Work Phone: [facility] 04-10-2022 13:31-0500 Diastolic blood pressure 74 mm[Hg] Faith Dahlhausen CONCRETE PIPE PLANT SUPERVISOR.REFINERY OPERATOR [employer] Work Phone: [facility] 04-10-2022 13:31-0500 Heart rate 72 /min Faith Charleyhausen CONCRETE PIPE PLANT SUPERVISOR.REFINERY OPERATOR [employer] Work Phone: [facility] 04-10-2022 13:31-0500 Respiratory rate 18 /min Faithmaría Whiteheadhausen CONCRETE PIPE PLANT SUPERVISOR.REFINERY OPERATOR [employer] Work Phone: [facility] 04-10-2022 13:31-0500 SaO2% (BldA) [Mass fraction] 95 % Faithmaría Whiteheadhausen CONCRETE PIPE PLANT SUPERVISOR.REFINERY OPERATOR [employer] Work Phone: [facility] 04-10-2022 13:31-0500 Systolic blood pressure 125 mm[Hg] Faith Whiteheadhausen CONCRETE PIPE PLANT SUPERVISOR.REFINERY OPERATOR [employer] Work Phone: [facility] 02-10-2022 17:11-0500 Body weight 110.68 kg Sagrario Mosqueda MD Work Phone: [facility] 02-10-2022 17:11-0500 Diastolic blood pressure 72 mm[Hg] Sagrario Mosqueda MD Work Phone: [facility] 02-10-2022 17:11-0500 Heart rate 94 /min Sagrario Mosqueda MD Work Phone: [facility] 02-10-2022 17:11-0500 SaO2% (BldA) [Mass fraction] 96 % Sagrario Mosqueda MD Work Phone: [facility] 02-10-2022 17:11-0500 Systolic blood pressure 122 mm[Hg] Sagrario Mosqueda MD Work Phone: [facility] 11-28-2021 13:37-0400 Body temperature 97.59 [degF] Faith Raygoaz CONCRETE PIPE PLANT SUPERVISOR.REFINERY OPERATOR [employer] Work Phone: [facility] 11-28-2021 13:37-0400 Body weight 110.22 kg Faith Whiteheadhausen CONCRETE PIPE PLANT SUPERVISOR.REFINERY OPERATOR [employer] Work Phone: [facility] 11-28-2021 13:37-0400 Diastolic blood pressure 82 mm[Hg] Faith Dahlhausen CONCRETE PIPE PLANT SUPERVISOR.REFINERY OPERATOR [employer] Work Phone: [facility] 11-28-2021 13:37-0400 Heart rate 100 /min Faith Dahlhausen CONCRETE PIPE PLANT SUPERVISOR.REFINERY OPERATOR [employer] Work Phone: [facility] 11-28-2021 13:37-0400 Respiratory rate 18 /min Faith Dahlhausen CONCRETE PIPE PLANT SUPERVISOR.REFINERY OPERATOR [employer] Work Phone: [facility] 11-28-2021 13:37-0400 SaO2% (BldA) [Mass fraction] 97 % Faith Dahlhausen CONCRETE PIPE PLANT SUPERVISOR.REFINERY OPERATOR [employer] Work Phone: [facility] 11-28-2021 13:37-0400 Systolic blood pressure 126 mm[Hg] Faith Dahlhausen CONCRETE PIPE PLANT SUPERVISOR.REFINERY OPERATOR [employer] Work Phone: [facility] 08-09-2021 14:12-0400 Body temperature 98.1 [degF] Munir Poole Jr., MD Work Phone: [facility] 08-09-2021 14:12-0400 Body weight 110.86 kg Munir Poole Jr., MD Work Phone: [facility] 08-09-2021 14:12-0400 Diastolic blood pressure 74 mm[Hg] Munir Poole Jr., MD Work Phone: [facility] 08-09-2021 14:12-0400 Heart rate 96 /min Munir Poole Jr., MD Work Phone: [facility] 08-09-2021 14:12-0400 Respiratory rate 18 /min Munir Poole Jr., MD Work Phone: [facility] 08-09-2021 14:12-0400 SaO2% (BldA) [Mass fraction] 97 % Munir Poole Jr., MD Work Phone: [facility] 08-09-2021 14:12-0400 Systolic blood pressure 128 mm[Hg] Munir Poole Jr., MD Work Phone: [facility] 06-10-2021 12:53-0400 Body weight 114.76 kg Ricardo Benedict CONCRETE P[employer] SUPERVISOR.BRICK MASON Work Phone: [facility] 06-10-2021 12:53-0400 Diastolic blood pressure 72 mm[Hg] Ricardo Benedict CONCRETE PIPE PLANT SUPERVISOR.BRICK MASON Work Phone: [facility] 06-10-2021 12:53-0400 Heart rate 84 /min Ricardo Estradas CONCRETE PIPE PLANT SUPERVISOR.BRICK MASON Work Phone: [facility] 06-10-2021 12:53-0400 Respiratory rate 16 /min Ricardo Estradas CONCRETE PIPE PLANT SUPERVISOR.BRICK MASON Work Phone: [facility] 06-10-2021 12:53-0400 Systolic blood pressure 140 mm[Hg] Ricardo Benedict CONCRETE PIPE PLANT SUPERVISOR.BRICK MASON Work Phone: [facility] Encounters Encounter Date Encounter Type Care Provider Facility Start: 05-08-2023 Refill Rebeca FLOR.REFINERY OPERATOR [employer] Work Phone: [facility] Procedures Date Procedure Procedure Detail Performing Clinician Start: 11-28-2020 Adult depression scr eening assessment Ricardo Estradas CONCRETE P[employer] SUPERVISOR.BRICK MASON Work Phone: Start: 04-21-2018 Colonoscopy Ricardo Broo ks CONCRETE P[employer] SUPERVISOR.BRICK MASON Work Phone: Start: 04-21-2018 Mammography Ricardo Broo ks CONCRETE P[employer] SUPERVISOR.BRICK MASON Work Phone: Plan of Treatment Date Care Activity Detail Author Start: 04-28-2024 Annual PCP Team Adoption Worker clemente Disease Visit Annual PCP Team Chronic Disease Visit [facility] Start: 04-28-2024 BP Controlled (<130/80) BP Controlle d (<130/80) [facility] Start: 10-09-2023 ANNUAL PCP TEAM COMMODITY MANAGEMENT SPECIALIST CLEMENTE DISEASE VISIT ANNUAL PCP TEAM CHRONIC DISEASE VISIT [facility] Start: 10-09-2023 BP CONTROLLED (<130/80) BP CONTROLLE D (<130/80) [facility] Start: 10-09-2023 Pneumococcal Vaccine : 65+ (2 - PCV) Pneumococcal Vaccine: 65+ (2 - PCV) [facility] Immunizations Immunization Date Immunization Notes Care Provider Eamon kam 04-15-2023 pneumococcal conjuga te (PCV20) vaccine, 20 valent (PREVNAR 20) Sagrario Mosqueda MD Work Phone: [facility] Work Phone: 11-30-2020 influenza, injectabl e, quadrivalent, contains preservative Ricardo Benedict CONCRETE P[employer] SUPERVISOR.BRICK MASON Work Phone: [facility] Work Phone: 11-30-2020 influenza virus vacc ine, unspecified formulation Sagrario Mosqueda MD Work Phone: [facility] 11-30-2019 influenza, injectabl e, quadrivalent, contains preservative Ricardo Benedict CONCRETE P[employer] SUPERVISOR.BRICK MASON Work Phone: [facility] 10-25-2018 influenza, injectabl e, quadrivalent, contains preservative Rebcea Gabriela CONCRETE PIPE PLANT SUPERVISOR.REFINERY OPERATOR [employer] Work Phone: [facility] Work Phone: 10-25-2018 influenza, seasonal, injectable Ricardo Benedict CONCRETE PIPE PLANT SUPERVISOR.BRICK MASON Work Phone: [facility] Work Phone: 06-08-2018 hepatitis A vaccine, adult dosage Rebeca Gabriela CONCRETE PIPE PLANT SUPERVISOR.REFINERY OPERATOR [employer] Work Phone: [facility] Work Phone: 06-08-2018 hepatitis A vaccine, unspecified formulation Ricardo Benedict CONCRETE PIPE PLANT SUPERVISOR.BRICK MASON Work Phone: [facility] Work Phone: 12-07-2017 hepatitis A vaccine, adult dosage Ricardo Benedict CONCRETE P[employer] SUPERVISOR.BRICK MASON Work Phone: [facility] 12-07-2017 Influenza, injectabl e, Madin [place] Canine Kidney, preservative free, quadrivalent Ricardo Benedict CONCRETE P[employer] PLANT SUPERVISOR.BRICK MASON Work Phone: [facility] 01-02-2016 influenza, injectabl e, quadrivalent, contains preservative Ricardo Benedict CONCRETE PIPE PLANT SUPERVISOR.BRICK MASON Work Phone: [facility] 11-28-2014 influenza, injectabl e, quadrivalent, contains preservative Ricardo Benedict CONCRETE PIPE PLANT SUPERVISOR.BRICK MASON Work Phone: [facility] 01-11-2014 influenza, seasonal, injectable Ricardo Benedict CONCRETE P[employer] PLANT SUPERVISOR.BRICK MASON Work Phone: [facility] 01-11-2014 pneumococcal polysaccharide vaccine, 23 valent Ricardo Benedict CONCRETE PIPE PLANT SUPERVISOR.BRICK MASON Work Phone: [facility] 02-11-2013 influenza virus vacc ine, unspecified formulation Ricardo Benedict CONCRETE P[employer]ANT SUPERVISOR.BRICK MASON Work Phone: [facility] 11-24-2011 tetanus toxoid, redu kaci diphtheria toxoid, and acellular pertussis vaccine, adsorbed Ricardo Jak CONCRETE P[employer]ANT SUPERVISOR.BRICK MASON Work Phone: [facility] Work Phone: 12-28-2006 influenza virus vacc ine, unspecified formulation Ricardo Benedict CONCRETE P[employer] PLANT SUPERVISOR.BRICK MASON Work Phone: [facility] Work Phone: 12-30-2005 influenza virus vacc ine, unspecified formulation Ricardo Benedict CONCRETE PIPE PLANT SUPERVISOR.BRICK MASON Work Phone: [facility] Work Phone: 12-01-2003 pneumococcal polysaccharide vaccine, 23 valent Ricardo Benedict CONCRETE PIPE PLANT SUPERVISOR.BRICK MASON Work Phone: [facility] Work Phone: Payers Date Payer Category Payer Medicaid [id number] 2015 Medicare [id number] 2015 Medicare MEDICARE MEDICAR E A AND B [id number] 2015-Present [phone] [address] [address] [place] [address] Medicare [id number] 2015 Medicare [id number] 2015 Medicare [id number] Social History Date Type Detail Facility Start: 04-20-2012 End: 04-10-2022 Tobacco smoking status NHIS Never smoked tobacco [facility] Work Phone: Start: 06-10-2021 End: 03-10-2023 Alcohol intake Current non-drinker of alcohol (finding) [facility] Start: 05-19-2019 History SDOH Alcohol Frequency 1 [facility] Start: 05-19-2019 History SDOH Social Connections Phone 5 [facility] Start: 05-19-2019 History SDOH Social Connections Anabaptist 3 [facility] Start: 05-19-2019 End: 10-17-2019 History SDOH Social Connections Living 4 [facility] Start: 05-19-2019 History SDOH Physica l Activity DPW 0 [facility] Start: 10-17-2019 History SDOH Food Worry 2 [facility] Start: 10-17-2019 History SDOH Food Scarcity 98 [facility] Start: 05-19-2019 Education 12 [facility] Start: 1955 Sex Assigned At Not on file [facility] Start: 05-31-2021 End: 11-28-2021 Exposure to SARS-CoV-2 (event) Not sure [facility] Work Phone: Start: 04-20-2012 End: 04-10-2022 Tobacco use and exposure Smokeless tobacco non-user [facility] Start: 05-19-2019 End: 08-14-2022 History of Social function [facility] Start: 05-19-2019 End: 08-14-2022 Social connection and isolation panel [facility] Do you belong to any clubs or organizations such as worship groups, unions, fraternal or athletic groups, or school groups? Yes [facility] Are you now , , , , never or living with a partner? [facility] How often to you hav e a drink containing alcohol? Never [facility] Average Number of Drinks Not on file [facility] Work Phone: How hard is it for y ou to pay for the very basics like food, housing, medical care, and heating Not very hard [facility] Work Phone: Do you feel stress - tense, restless, nervous, or anxious, or unable to sleep at night because your mind is troubled all the time - these days [OSQ] Very much [facility] (I/We) worried wheth er (my/our) food would run out before (I/we) got money to buy more. Sometimes true [facility] Work Phone: The food that (I/we) bought just didn't last, and (I/we) didn't have money to get more. DK or Refused [facility] Work Phone: Medical Equipment Procedure Code Equipment Code Equipment Origin al Text Equipment Identifier Dates Start: 10-07-2018 Clinical Notes 05-13-2016 to 04-28-2023 Sagrario Mosqueda MD - 04/28/2023 12:21 PM ESTTelephone Encounter - Noa Garcia Ma - 12/29/2022 9:53 AM EDTTelephone Encounter - Ricardo Benedict APRN.CNS - 12/29/2022 9:31 AM EDT Note Date & Type Note Facility 04-28-2023 Note HNO ID: [id number] Author: SAGRARIO MOSQUEDA MD Service: ? Author Type: Physician Type: Progress Notes Filed: 04/29/2023 19:18 Note Text: This note was created using [employer]. Subjective Tiffanie Devlin is a 67 year old female. Patient presents with: Hospital F/U SUBJECTIVE: Tiffanie Devlin is a 67 year old year old lady here today for hospital month follow up appointment for review of medical conditions. Patient was admitted after having multiple falls at home. Developed persistent severe pain and was not able to get up out of bed. Had low back and hip pain with pain in her buttock and right knee.She was diagnosed with atrial flutter with RVR and hyperthyroidism. Started on methimazole as well as meds for atrial flutter. Was at TCU at [facility] before went home. Noted that did not treat sugars with meals--was not given insulin long or short acting. Did not treat tremors either. Doing better since home. No falls since went home. Told needs something to be with her when leaves apartment. 3 grandkids take turns spending the night . Still has trouble getting out of bed. Transfers from bed to chair okay with use of rollator to get to chair. Has transfer bench and needs raised toilet seat. Certified Technician helping. They are also helping with getting home health. Does own exercises at home. Noted that [facility] still working on finding people for everything (HHN, PT/OT, Aides) since no availability. Sugar 139 this AM. Goes up after meals. Does not have short acting insulin. Has needles Powder needed in perineum --states skin as raw. Desitin --getting to use at home. Senokot 2 twice daily at TCU. Told to stay on it but not sure dose. States was going back and forth diarrhea and constipation but Senokot helped bowels. Doing well on present regimen. Has follow up with cardiology and Dr. Chris Simmons for thyroid. PAST MEDICAL HISTORY Diagnosis Date Acute gastritis [...] Statin intolerance Current Outpatient Medications Medication Sig methIMAzole (TAPAZOLE) 10 mg tablet Take 20 mg by mouth once daily. amiodarone (PACERONE) 200 mg tablet Take 1 tablet by mouth once daily. cloNIDine HCl (CATAPRES) 0.3 mg tablet Take 1 tablet by mouth two times a day. amLODIPine (NORVASC) 10 mg tablet Take 1 tablet by mouth once daily. flash glucose sensor (JymobYLE MAHESH 2 SENSOR) kit Apply new sensor every fourteen (14) days to upper arm. WALKER ROLLATOR SEAT WITH 6 WHEELS - RED Ultra-light with seat if possible, if not please give lightest possible rollator with a seat. Please send to [facility]. omega-3 fatty acids 1,000 mg cap Take 4 capsules by mouth once daily. Patient reports she is taking 4,000 mg daily phytonadione, vit K1, (VITAMIN K) 100 mcg tablet Take 100 mcg by mouth once daily. Lancets lancets Check blood sugar 3 times daily and as needed for symptoms of high or low sugars DX: E11.40 Insulin:Yes. Please give lancet pen if does not come with the meter Insulin [place], Disposable, (BD INSULIN PEN NEEDLE UF) 29 gauge x 1/2 ndle USE TO INJECT TWICE DAILY insulin degludec (TRESIBA FLEXTOUCH U-200) 200 unit/mL (3 mL) injection Inject 20 Units subcutaneously daily at bedtime. ELIQUIS 5 mg tab(s) Take 1 tablet by mouth two times a day. metoprolol tartrate, short acting, (LOPRESSOR) 25 mg tablet Take 1 tablet by mouth two times a day. magnesium chloride [address] tablet Take 2 tablets by mouth once daily. cholecalciferol (VITAMIN D3) 50 mcg (2,000 unit) tablet Take 1 tablet by mouth once daily. oxybutynin ER (DITROPAN XL) 15 mg 24 hr Extended Rel Tab Take 1 tablet by mouth two times a day. cyclobenzaprine (FLEXERIL) 10 mg tablet Take 1 tablet by mouth daily at bedtime. insulin aspart U-100 (NOVOLOG FLEXPEN U-100 INSULIN) 100 unit/mL (3 mL) Inject 4 Units subcutaneously three times a day before meals. Will increase as needed up to 10 units per meal mecobalamin, vitamin B12, (B12 ACTIVE) 1,000 mcg chew Take 1 tablet by mouth (more content not included)... [facility] 04-28-2023 History of Presen t illness Narrative This note was created using [employer] [facility]. Subjective Tiffanie Devlin is a 67 year old female. Patient presents with: Hospital F/U SUBJECTIVE: Tiffanie Devlin is a 67 year old year old lady here today for hospital month follow up appointment for review of medical conditions. Patient was admitted after having multiple falls at home. Developed persistent severe pain and was not able to get up out of bed. Had low back and hip pain with pain in her buttock and right knee.She was diagnosed with atrial flutter with RVR and hyperthyroidism. Started on methimazole as well as meds for atrial flutter. Was at TCU at [facility] before went home. Noted that did not treat sugars with meals--was not given insulin long or short acting. Did not treat tremors either. Doing better since home. No falls since went home. Told needs something to be with her when leaves apartment. 3 grandkids take turns spending the night . Still has trouble getting out of bed. Transfers from bed to chair okay with use of rollator to get to chair. Has transfer bench and needs raised toilet seat. Certified Technician helping. They are also helping with getting home health. Does own exercises at home. Noted that [facility] still working on finding people for everything (HHN, PT/OT, Aides) since no availability. Sugar 139 this AM. Goes up after meals. Does not have short acting insulin. Has needles Powder needed in perineum --states skin as raw. Desitin --getting to use at home. Senokot 2 twice daily at TCU. Told to stay on it but not sure dose. States was going back and forth diarrhea and constipation but Senokot helped bowels. Doing well on present regimen. Has follow up with cardiology and Dr. Chris Simmons for thyroid. PAST MEDICAL HISTORY Diagnosis Date Acute gastritis [...] Statin intolerance Current Outpatient Medications Medication Sig methIMAzole (TAPAZOLE) 10 mg tablet Take 20 mg by mouth once daily. amiodarone (PACERONE) 200 mg tablet Take 1 tablet by mouth once daily. cloNIDine HCl (CATAPRES) 0.3 mg tablet Take 1 tablet by mouth two times a day. amLODIPine (NORVASC) 10 mg tablet Take 1 tablet by mouth once daily. flash glucose sensor (FREESTYLE MAHESH 2 SENSOR) kit Apply new sensor every fourteen (14) days to upper arm. WALKER ROLLATOR SEAT WITH 6 WHEELS - RED Ultra-light with seat if possible, if not please give lightest possible rollator with a seat. Please send to [facility]. omega-3 fatty acids 1,000 mg cap Take 4 capsules by mouth once daily. Patient reports she is taking 4,000 mg daily phytonadione, vit K1, (VITAMIN K) 100 mcg tablet Take 100 mcg by mouth once daily. Lancets lancets Check blood sugar 3 times daily and as needed for symptoms of high or low sugars DX: E11.40 Insulin:Yes. Please give lancet pen if does not come with the meter Insulin [place], Disposable, (BD INSULIN PEN NEEDLE UF) 29 gauge x 1/2 ndle USE TO INJECT TWICE DAILY insulin degludec (TRESIBA FLEXTOUCH U-200) 200 unit/mL (3 mL) injection Inject 20 Units subcutaneously daily at bedtime. ELIQUIS 5 mg tab(s) Take 1 tablet by mouth two times a day. metoprolol tartrate, short acting, (LOPRESSOR) 25 mg tablet Take 1 tablet by mouth two times a day. magnesium chloride [address] tablet Take 2 tablets by mouth once daily. cholecalciferol (VITAMIN D3) 50 mcg (2,000 unit) tablet Take 1 tablet by mouth once daily. oxybutynin ER (DITROPAN XL) 15 mg 24 hr Extended Rel Tab Take 1 tablet by mouth two times a day. cyclobenzaprine (FLEXERIL) 10 mg tablet Take 1 tablet by mouth daily at bedtime. insulin aspart U-100 (NOVOLOG FLEXPEN U-100 INSULIN) 100 unit/mL (3 mL) Inject 4 Units subcutaneously three times a day before meals. Will increase as needed up to 10 units per meal mecobalamin, vitamin B12, (B12 ACTIVE) 1,000 mcg chew Take 1 tablet by mouth once daily. (Patient not taking: Reported on 04/28/2023) blood sugar diagnostic (BLOOD GLUCOSE TEST) test strip Test blood sugar(s) 3 times daily and as needed for symptoms of high and low sugars. Dx: Other DM Code E11.40 Insulin: Yes Blood-Glucose Meter monitoring kit Glucose Meter of Choice - Kit - As directed to test blood sugar up to 3 times daily. Dx: Other DM Code E11.40. Aspirin 81 mg tab Take 1 tablet by mouth once daily. Take with food. (Patient not taking: Reported on 04/28/2023) No current facility-administered medications for this visit. Review of Systems Objective BP 128/70 (BP Site: Left Arm, BP Position: Sitting, BP Cuff Size: Large Adult) Pulse (!) 56 SpO2 96% Physical Exam Constitutional: Appearance: Normal appearance. HENT: Head: Normocephalic. Eyes: Conjunctiva/sclera: Conjunctivae normal. Cardiovascular: Rate and Rhythm: Normal rate and regular rhythm. Heart sounds: Normal heart sounds. Pulmonary: Effort: Pulmonary effort is normal. Breath sounds: Normal breath sounds. Musculoskeletal: Right lower leg: No edema. Left lower leg: No edema. Skin: General: Skin is warm and dry. Neurological: General: No focal deficit present. Mental Status: She is alert and oriented to person, place, and time. Motor: Weakness (generalized) present. Comments: In wheelchair. Not able to stand without a lot of assistance Psychiatric: Mood and Affect: Mood normal. Behavior: Behavior normal. Thought Content: Thought content normal. Judgment: Judgment normal. Assessment and Plan Encounter Diagnosis ICD-10-CM 1. Physical debility R53.81 Will continue working with PT. Needs raised toilet seat and transfer bench for tub/shower. 2. Type 2 diabetes mellitus with diabetic neuropathy, with long-term current use of insulin ([facility]) E11.40 insulin degludec (TRESIBA FLEXTOUCH U-200) 200 unit/mL (3 mL) injection Z79.4 Getting high after meals. Add meal time insulin 3. Hyperthyroidism E05.90 Continue methimazole; has follow up with Dr. Chris Simmons ([facility] endocrinology). Clinically euthyroid 4. Atrial flutter with rapid ventricular response (HCC) I48.92 Doing well on Eliquis, amiodarone and metoprolol. Follow up with cardiology. Has enough meds to get to appointment 5. Fibromyalgia M79.7 cyclobenzaprine (FLEXERIL) 10 mg tablet Chronic pain. Contributes to debility 6. Parkinson's disease without dyskinesia, unspecified whether manifestations fluctuate (HCC) G20.A1 Contributes to debilitty.Will see neurology for follow up and treatment 7. Need for shingles vaccine Z23 SHINGRIX PRINTED PHARMACY INSTRUCTIONS 8. Encounter for immunization Z23 RSV PRINTED PHARMACY INSTRUCTIONS Above issues addressed with patient. Patient involved in shared decision making for management of medical issues. History and medications reviewed. Epic updated as needed Refills and/or prescriptions taken care of and meds adjusted as indicated after reviewed history, exam and labs. Health Maintenance reviewed. Updated record and/or ordered tests as recorded. Encouraged on efforts at healthy diet and regular exercise and adequate sleep. Reviewed hospital records. Will stay on current meds. Add short-acting insulin with meals. See cardiology and endocrinology for follow up. Home health, including PT. Further evaluation and treatment as indicated. I spent a total of 38 minutes on the date of the service which included [id number] patient care, completing clinical documentation, obtaining and/or reviewing separately obtained history, performing a medically appropriate examination, counseling and educating the patient/family/caregiver, ordering medications, tests, or procedures, independently interpreting results (not separately reported), and communicating results to the patient/family/caregiver. Sagrario Mosqueda MD documented in this encounter [facility] 03-12-2023 Note HNO ID: [id number] Author: MARIANELA SHEARER, ? Service: ? Author [...] (H) 4.3 - 5.6 % Final Comment: [place] [employer] guidelines indicate that patients with [...] rollator with a seat. Please send to [facility]. omega-3 fatty acids 1,000 mg cap Take [...] daily. Dx: Other DM Code E11.40. Insulin Whiteford, Disposable, (BD INSULIN PEN NEEDLE UF) 29 [...] Change Methenamine Ra (more content not included)... [facility] 03-10-2023 Note HNO ID: [id number] Author: ACOSTA AMAYA, RN Service: ? Author Type: Registered Nurse Type: Progress Notes Filed: 03/11/2023 22:19 Note Text: Patient presents with: Right Foot - Established Patient, Follow Up, Bump Patient presents for growth to bottom of Right 2nd toe. Right 5th toe nail is black. JOANNA 08/15/22 [facility] 01-05-2023 Note Patient Outreach (JACQUELINE PINEDA) TIFFANIE DEVLIN ([id number]) 1955 F Date Time Provider Department 01/05/23 [...] (VERAPAMIL HCL) 11/05/2005 Comments: Confusion, constipation HYZAAR (LOSARTAN-HYDROCHLOROTHIAZ*07/2005 2 - Rash Comments: Cramps, chills KEFLEX (CEPHALEXIN) 11/05/2005 9 - Itching Comments: rash LABETALOL 11/05/2005 2 - Rash LAMICTAL (LAMOTRIGINE) 11/05/2005 2 - Rash LATEX 07/14/2008 2 - Rash Comments: Occurs if latex on skin for long periods LORTAB (HYDROCODONE-ACETAMINOPHEN)07/2005 1 - Mental Status Change METHENAMINE 08/22/2022 2 - Rash 7 - Swelling 9 - Itching 10 - Anaphylaxis Comments: throat swelling MOBIC (MELOXICAM) 01/02/2011 14 - Other: See Comments Comments: [place] like something squeezing heart PROZAC (FLUOXETINE HCL) 05/13/2006 12 - Shortness of Breath Comments: sob,chest pains SEPTRA (SULFAMETHOXAZOLE-TRIMETHO*07/2005 8 - GI Upset SEROQUEL (QUETIAPINE FUMARATE) [...] Date Reviewed: 12/26/2022 Reviewed by: Ricardo Benedict APRN.BRICK MASON - Fully Assessed Reason for Visit: Population [...] rollator with a seat. Please send to [facility]. - omega-3 fatty acids 1,000 mg cap [...] 1 tablet by (more content not included)... [facility] 01-05-2023 Note HNO ID: [id number] Author: Selene Miller MA Service: ? Author Type: Internal Affairs Investigator Type: Progress Notes Filed: 01/05/2023 1:32 PM [...] Miller MA January 05, 2023 9:00 AM [facility] 12-31-2022 Note Patient Outreach (IN [facility]) BRODERICKTIFFANIE NAILS ([id number]) 1955 F Date Time Provider Department 12/31/22 [...] (VERAPAMIL HCL) 11/05/2005 Comments: Confusion, constipation HYZAAR (LOSARTAN-HYDROCHLOROTHIAZ*07/2005 2 - Rash Comments: Cramps, chills KEFLEX (CEPHALEXIN) 11/05/2005 9 - Itching Comments: rash LABETALOL 11/05/2005 2 - Rash LAMICTAL (LAMOTRIGINE) 11/05/2005 2 - Rash LATEX 07/14/2008 2 - Rash Comments: Occurs if latex on skin for long periods LORTAB (HYDROCODONE-ACETAMINOPHEN)07/2005 1 - Mental Status Change METHENAMINE 08/22/2022 2 - Rash 7 - Swelling 9 - Itching 10 - Anaphylaxis Comments: throat swelling MOBIC (MELOXICAM) 01/02/2011 14 - Other: See Comments Comments: [place] like something squeezing heart PROZAC (FLUOXETINE HCL) 05/13/2006 12 - Shortness of Breath Comments: sob,chest pains SEPTRA (SULFAMETHOXAZOLE-TRIMETHO*07/2005 8 - GI Upset SEROQUEL (QUETIAPINE FUMARATE) [...] Date Reviewed: 12/26/2022 Reviewed by: Ricardo Benedict APRN.BRICK MASON - Fully Assessed Visit Diagnosis:Encounter for screening mammogram for breast cancer [Z12.31] Order(s):[facility] SCREENING [[id number]] Order #: [id number] FUTURE Prescriptions as of 01/05/2023 - insulin [...] rollator with a seat. [place] [facility] - omega-3 fatty acids 1,000 mg cap [...] Dx: Other DM Code E11.40. - Insulin Whiteford, Disposable, (BD INSULIN PEN NEEDLE UF) 29 [...] 11/05/2005 COMMON RIGO (more content not included)... [facility] 12-29-2022 Miscellaneous Notes Pt notified. Noa [...] Sagrario Mosqueda MD. documented in this encounter [facility] 12-26-2022 Note HNO ID: [id number] Author: Ricardo Benedict APRN.CNS Service: ? Author [...] days has showed low readings in the supervisor cemetery workers daytime readings have been 100-150. she reports [...] throat swelling Mobic [Meloxicam] Other: See Comments [place] like something squeezing heart Prozac [Fluoxetine * [...] FLEXTOUCH U-200) 2 (more content not included)... [facility] 12-26-2022 History of Presen t illness [...] days has showed low readings in the supervisor cemetery workers daytime readings have been 100-150. she reports [...] throat swelling Mobic [Meloxicam] Other: See Comments [place] like something squeezing heart Prozac [Fluoxetine * [...] rollator with a seat. Please send to [facility]. omega-3 fatty acids 1,000 mg cap Take [...] daily. Dx: Other DM Code E11.40. Insulin Whiteford, Disposable, (BD INSULIN PEN NEEDLE UF) 29 [...] neuropathy, with long-term current use of insulin ([facility]) - ICD9: 250.60, 357.2, V58.67, ICD10: E11.40, [...] 4 - Moderate documented in this encounter [facility] 12-26-2022 Instructions Ricardo Benedict APRN.CNS - 12/26/2022 [...] your medication doses documented in this encounter [facility] 12-25-2022 Miscellaneous Notes Patient notified of providers [...] yes Protocols used: Diabetes - Low Blood [id number]-MI documented in this encounter [facility] 10-30-2022 Miscellaneous Notes Rec'd completed and all faxed back. Ramya from [employer] called to verify receipt of fax for a request of supplies for the patient. Please advise. Sophia Heard documented in this encounter [facility] 10-08-2022 Note HNO ID: [id number] Author: Sagrario Mosqueda MD Service: ? Author Type: Physician Type: Progress Notes Filed: 10/29/2022 8:29 PM Note Text: This note was created using [employer]. Subjective Tiffanie Devlin is a 67 year [...] rollator with a seat. Please send to [facility]. Blood-Glucose Meter,Continuous (DEXCOM G7 NEEDLE LOOM OPERATOR) misc Use to check blood sugar at least four (4) times daily. Blood-Glucose Sensor (TryLifeCOM G7 SENSOR) gerard Apply new sensor every [...] daily. Dx: Other DM Code E11.40. Insulin Whiteford, Disposable, (BD INSULIN PEN NEEDLE UF) 29 [...] 105.7 kg (23 (more content not included)... [facility] 10-08-2022 History of Presen t illness Narrative This note was created using [employer] [facility] [address]. Subjective Tiffanie Devlin is a 67 year [...] rollator with a seat. Please send to [facility]. Blood-Glucose Meter,Continuous (DEXCOM G7 NEEDLE LOOM OPERATOR) misc Use to check blood sugar at least [...] daily. Dx: Other DM Code E11.40. Insulin Whiteford, Disposable, (BD INSULIN PEN NEEDLE UF) 29 [...] neuropathy, with long-term current use of insulin ([facility]) E11.40 COMP METABOLIC PANEL Z79.4 HGB A1C [...] in adult, unspecified whether serious comorbidity present ([facility]) E66.01 Z68.41 See below Above issues addressed [...] the date of the service which included [id number] patient care, completing clinical documentation, performing a medically appropriate examination, counseling and educating the patient/family/caregiver, and ordering medications, tests, or procedures. Sagrario Mosqueda MD documented in this encounter [facility] 09-18-2022 Note HNO ID: [id number] Author: Meron De La Fuente RT(Fidel) Service: [...] DATE: September 18, 2022 TIME: 7:58 AM [facility] 08-26-2022 Miscellaneous Notes Pt read message at 12:29 PM on 08/26/2022 with no response. Closing encounter. Helga Perez LPN Should be short acting Sinemet. New prescription sent. If she needs short term supply sent to local pharmacy please let me know. Pt called in to let you know she just spoke with [facility] and they received the new prescription sent in to them on Sinemet and what the pt is being told you can not split the Extended Release because it changes the medication. Pt concerned she is going to run out of medication. Please review and advise pt and pharmacy. Katy Martinez LPN documented in this encounter [facility] 08-26-2022 Miscellaneous Notes Anish Valverde was not going to send Carbidopa-Levodopa (sinemet) until PCP office called [phone]. Spoke to Sophia/pharmacist, needed to verify, there was a stop on Carbidopa-Levodopa CR 25-100. New prescription for Carbidopha-Levodopa (Sinemet) 25-100mg, Dispense 405 tablets, no refills, will be filled and mailed to Patient. Radha Bauman LPN documented in this encounter [facility] 08-22-2022 Miscellaneous Notes Fax received from [facility] stating Medicare will not approve a new walker until 10/2024. PATIENT NOTIFIED OF SAME. Explained that she can pay for it out of pocket or check thrift stores. documented in this encounter [facility] documented as of this encounter (statuses as of 04/30/2023) [facility] History of Past illness Narrative* Problem Noted Date Diagnosed Date Resolved Date Platelets decreased 08/22/2022 04/29/19 24 Unspecified severe protein-c alorie malnutrition 08/15/2022 04/29/2023 Morbid obesity with BMI of 45.0-49.9, adult 04/21/2017 04/29/2023 Acute pain of left shoulder 05/13/2016 05/23/2019 [...] as of this encounter (statuses as of 05/08/2023) [facility]23 NoteHNO ID: [id number] Author: Rebeca Ochoa APRN.REFINERY OPERATOR [employer] Service: ? Author Type: Nurse Practitioner Type: Progress Notes Filed: 08/22/2022 12:23 PM Note Text: SUBJECTIVE Tiffanie Devlin is a 67 year [...] rollator with a seat. Please send to [facility]. Blood-Glucose Meter,Continuous (DEXCOM G7 NEEDLE LOOM OPERATOR) [facility] Use to check blood sugar at least [...] daily. Dx: Other DM Code E11.40. Insulin White[place], Disposable, (BD INSULIN PEN NEEDLE UF) 29 [...] throat swelling Mobic [Meloxicam] Other: See Comments [place] like something squeezing heart Prozac [Fluoxetine * Shortness of Breath sob,chest pains Septra [Sulfamethox* GI Upset Seroquel [Quetiapin* Shortness of Breath Topamax [Topiramate] Other: See Comments gait instability and felt stupid Victoza [Liraglutid* Swelling throat swelling Zocor [Simvastatin] Swelling Zoloft [ (more content not included)...[facility] History of Present illness Narrative* Rebeca Ochoa APRN.[employer]INERY OPERATOR [employer] - 08/22/2022 8:24 AM EDT SUBJECTIVE Tiffanie Devlin is a 67 year [...] how long, son says she has looked likethis for a while. Possibly developed in the [...] effects with a right sided pain on metformin.Stopped it and pain went away. Most recent hgba1c was 5.9%. Sees podiatry, last seen 08/15 for diabetic foot exam. No low sugars. Trying to eat high protein foods, not doing supplements right now. Has had a tremor for some time. On Sinemet. Has MRI in August with neuro follow up with [facility].Most recent PLT level 106. Over the last [...] mg cap Take 2 capsules by mouth twicedaily. WALKER ROLLATOR SEAT WITH 6 WHEELS - RED Ultra-light with seat if possible, if not please give lightest possible rollator with a seat. Please send to [facility]. Blood-Glucose Meter,Continuous (DEXCOM G7 NEEDLE LOOM OPERATOR) [facility] Use to check blood sugar at least four (4)times daily. Blood-Glucose Sensor (DEXCOM G7 SENSOR) gerard Apply new sensor every ten (10) days. omega-3 fatty acids 1,000 mg cap Take 4 capsules by mouth once daily. Patient reports she is taking4,000 mg daily blood sugar diagnostic (BLOOD GLUCOSE [...] daily. Dx: Other DM Code E11.40. Insulin [place], Disposable, (BD INSULIN PEN NEEDLE UF) 29 [...] throat swelling Mobic [Meloxicam] Other: See Comments [place] like something squeezing heart Prozac [Fluoxetine * [...] of Breath ACTIVE PROBLEM LIST Platelets Decreased ([facility]) - 08/22/2022 Unspecified Severe Protein-Calorie Malnutrition ([facility]) - 08/15/2022 Cortical Age-Related Cataract, Bilateral - 11/04/2018 Vitreous Floaters of Both Eyes - 11/03/2017 Punctate Keratitis of Both Eyes - 11/03/2017 Type 2 Diabetes Mellitus, With Long-Term Current Use of Insulin ([facility]) - 11/03/2017 Morbid Obesity With Bmi of 45.0-49.9, Adult ([facility]) - 04/21/2017 Impingement Syndrome of Left Shoulder - 05/13/2016 Carpal Tunnel Syndrome, Right - 01/22/2015 Carpal Tunnel Syndrome, Left - 01/22/2015 Josie (Obstructive Sleep Apnea) - 01/22/2015 Asthma - 01/22/2015 Gerd (Gastroesophageal Reflux Disease) - 01/22/2015 Type 2 Diabetes Mellitus With Diabetic Neuropathy, With Long-Term Current Use of Insulin (Formerly [facility]) - 12/07/2014 Statin Intolerance Diverticulosis of Colon [...] neuropathy, with long-term current use of insulin ([facility]) -ICD9: 250.60, 357.2, V58.67, ICD10: E11.40, Z79.4 (primary diagnosis) - Improving control - Stop metformin - Blood glucose monitoring on a continuous glucose monitoring schedule recommended due to issues with her tremors limiting ability to check sugars - DEXCOM G7 NEEDLE LOOM OPERATOR - DEXCOM G7 SENSOR DEVICE - ALBUMIN/CREAT RATIO RND UR 2. Diabetes mellitus with insulin therapy ([facility]) - ICD9: 250.00, V58.67, ICD10: E11.9, Z79.4 - DEXCOM G7 NEEDLE LOOM OPERATOR - DEXCOM G7 SENSOR DEVICE 3. Fine motor impairment - ICD9: V49.89, ICD10: R29.818, R29.898 - WALKER ROLLATOR SEAT WITH 6 WHEELS - RED - DEXCOM G7 NEEDLE LOOM OPERATOR - DEXCOM G7 SENSOR DEVICE 4. Generalized weakness - ICD9: 780.79, ICD10: R53.1 - WALKER ROLLATOR SEAT WITH 6 WHEELS - RED 5. TIA (transient ischemic attack) - ICD9: 435.9, ICD10: G45.9 Following with neuro, scheduled for MRI 6. Tremor, essential - ICD9: 333.1, ICD10: G25.0 - WALKER ROLLATOR SEAT WITH 6 WHEELS - RED - DEXCOM G7 NEEDLE LOOM OPERATOR - DEXCOM G7 SENSOR DEVICE 7. Unspecified severe protein-calorie malnutrition (HCC) - ICD9: 262, ICD10: E43 Stable. - WALKER ROLLATOR SEAT WITH 6 WHEELS - RED - COMP METABOLIC PANEL 8. Class 3 severe obesity due to excess calories with serious comorbidity and body mass index (BMI)of 40.0 to 44.9 in adult (HCC) - [...] from today's visit and in agreement with treatmentplan. Questions answered. Agrees to call the office [...] as well as compliance with taking medications. Age- appropriate health preventative measures were discussed. Return if symptoms worsen or fail to improve, for Keep next scheduled appointment.. Rebeca Ochoa APRN-SHAQUILLE documented in this encounterCommunity Memorial Hospital06-21-2023 Miscellaneous Notes* Telephone Encounter - Helga Perez LPN - 08/20/2022 7:46 AM EDT Fax received from [employer] to clarify medication directions for Carbidopa- Levodopa. Your last office note says take 1.5 mg PO TID and the prescription says take 1.5 tablets by mouth three times daily. Take 1.5 tablets at 7am, 1pm, 7pm. I pended the order for you if you could resend it! Thank you! Helga Perez LPN documented in this encounterCommunity Memorial Hospital06-16-2023 NoteHNO ID: [id number] Author: RT Sona(R) Service: ? Author Type: Roof Promenade Tile Setter Type: Progress Notes Filed: 08/15/2022 9:04 AM [...] BY: RT Sona(R) August 15, 2022 8:48 [facility]06-16-2023 NoteHNO ID: [id number] Author: Marianela Shearer Service: ? Author Type: [...] 11/05/2005 Diabetes mellitus type 2, insulin dependent ([facility]) DIABETES MELLITUS TYPE II-UNCOMPL 08/30/2000 Diverticulosis of [...] daily. Dx: Other DM Code E11.40. Insulin [place], Disposable, (BD INSULIN PEN NEEDLE UF) 29 [...] Status Change Mobic [Meloxicam] Other: See Comments [place] like something squeezing heart Prozac [Fluoxetine * Shortness of Breath sob,chest pains Septra [Sulfamethox* GI Upset Seroquel [Quetiapin* Short (more content not included)...[facility]06-16-2023 NoteHNO ID: [id number] Author: Seema Garcia RN Service: ? Author Type: ? Type: Progress Notes Filed: 08/15/2022 9:32 AM Note Text: Patient presents with: Right 2nd Toe - Established Patient, [facility]06-16-2023 History of Present illness Narrative* Marianela Shearer - 08/15/2022 8:29 AM EDT Chief Complaint: This 67 year old female [...] daily. Dx: Other DM Code E11.40. Insulin [place], Disposable, (BD INSULIN PEN NEEDLE UF) 29 [...] Status Change Mobic [Meloxicam] Other: See Comments [place] like something squeezing heart Prozac [Fluoxetine * [...] neuropathy, with long-term current use of insulin ([facility]) (primary encounter diagnosis) (L84) Callus (M79.89) Soft tissue mass PLAN: Diabetic foot exam performed. Discussed callus of right 2nd toe. Callus was reduced today with 15 blade. No underlying ulceration. Discussed etiology of callus. She has no hammertoe. I have concerns for deep soft-tisseu mass suchas fibroma of plantar 2nd toe proximal phalanx that would be possibly placing pressure on skin causing callus. I want to order xrays and mri of right foot to evaluate for possible underlying fibroma or other soft-tissue mass Marianela Shearer DPM Podiatry [address] [facility] [address] Dept: [phone] Dept * Seema Garcia RN - 08/15/2022 8:12 AM EDT Patient presents with: Right 2nd Toe - Established Patient, Wart documented in this encounterCommunity Memorial Hospital06-15-2023 NoteHNO ID: [id number] Author: Faith Raygoza APRN.REFINERY OPERATOR [employer] Service: ? Author Type: Nurse Practitioner Type: Progress Notes Filed: 08/15/2022 7:32 AM Note Text: [facility] [place] Follow-up Visit Follow-up note August 05, 2022 [...] reports that she did not take medication CASH GRAIN GROWER. Exam notable for tremor to BUE and [...] mention of hemo (more content not included)... [facility]06-15-2023 History of Present illness Narrative* Faith Raygoza APRN.REFINERY OPERATOR [employer] - 08/14/2022 1:45 PM EDT Images from the original note were not included. [facility] [place] Follow-up Visit Follow-up note August 05, 2022 HPI: Ms. Devlin presents today for a follow-up visit. Per her previous visit on 04/10/22: R25.1 Tremor (primary encounter diagnosis) Comment: Patient previously seen for tremor in general neurology office and prior to that was seen by movement disorder clinic. Hx and exam suggestive of essential tremor with superimposed functionaltremor. However, some exam findings still suggestive of [...] is almost time to take dose of medication.Discussed adjusting schedule so that medication is taken [...] in legs as well. Sometimes feels like eyestwitch. Feels she is doing better when walking. [...] reports worsening of tremor and stiffness. She iscurrently taking her medication at 7am, 2pm, and 7pm. Time of appointment today is 2pm and she repor ts that she did not take medication CASH GRAIN GROWER. Exam notable for tremor to BUE and intermittently to jaw. Shuffling with ambulation (though stable and not using cane) and altered THAI/tapping. Uncertain if exam findings are more notable today than time of last appointment secondary to timing of medication.Nevertheless, given report of worsening of sx at [...] daily. Dx: Other DM Code E11.40. Insulin [place], Disposable, (BD INSULIN PEN NEEDLE UF) 29 [...] Status Change Mobic [Meloxicam] Other: See Comments [place] like something squeezing heart Prozac [Fluoxetine * [...] exam suggestive of essential tremor with superimposed functionaltremor. However, some exam findings still suggestive of Parkinsonism. Past medications have included Topamax, Zonegran, Primidone, and Keppra. Unable to take benzos as well as beta blockers. Instead,she was started on Sinemet and is currently taking 25-100mg TID. Symptoms initially improved with use of medication, however, at time of appointment today she reports worsening of tremor and stiffness. She is currently taking her medication at 7am, 2pm, and 7pm. Time of appointment today is 2pm andshe reports that she did not take medication CASH GRAIN GROWER. Exam notable for tremor to BUE and intermittentlyto jaw. Shuffling with ambulation (though stable and not using cane) and altered THAI/tapping. Uncertain if exam findings are more notable today than time of last appointment secondary to timing of med ication. Nevertheless, given report of worsening of sx at home as well, feel that return to movement disorder clinic for updated assessment/evaluation would be beneficial. New consult has been placedand she will schedule after OV today. In interim will increase Sinemet to 1.5 tablets TID to determine if there is any further benefit from medication. R29.810 Facial weakness Comment: Pt noted to have facial asymmetry on exam with R facial weakness. No other focal neurological deficits are noted on exam with exception of decreased sensation to temperature in RLE. Strengthintact in RU/LE. Will order MRI of brain to evaluate for possible cause of sx including infarct given multiple risk factors (htn, hld, DM, sleep apnea). Faith Raygoza APRN.REFINERY OPERATOR [employer] I spent a total of 40 minutes on the date of the service which included preparing to see the patient, [id number] patient care, completing clinical documentation, obtaining and/or reviewing separately obtained history, performing a medically appropriate examination, counseling and educating the pat ient/family/caregiver, and ordering medications, tests, or procedures. documented in this encounterCommunity Memorial Hospital03-29-2023 NotePatient Outreach (NETNAV) TIFFANIE DEVLIN ([id number]) 1955 F Date Time Provider Department 05/28/22 SELENE MILLER During your visit today, we recorded the following information about you: Selene Miller MA 05/28/2022 12:53 PM Signed POPULATION HEALTH NAVIGATION OUTREACH Action/ NO ANSWER Data TV [employer] MESSAGE SENT ANNUAL [facility] WELLNESS MAMMOGRAM due on 04/21/2019 URINE ALBUMIN:CREATININE RATIO due on 01/15/2022 DILATED RETINAL EXAM due on 03/13/2022 Patient Identified by Name and : NO Outreach Outcome/Action Unable to reach patient: Phone number not valid / voicemail full [employer] message sent Did you use a PCP [...] (VERAPAMIL HCL) 11/05/2005 Comments: Confusion, constipation HYZAAR (LOSARTAN-HYDROCHLOROTHIAZ*11/05/2005 2 - Rash Comments: Cramps, chills KEFLEX (CEPHALEXIN) 11/05/2005 9 - Itching Comments: rash LABETALOL 11/05/2005 2 - Rash LAMICTAL (LAMOTRIGINE) 11/05/2005 2 - Rash LATEX 07/14/2008 2 - Rash Comments: Occurs if latex on skin for long periods LORTAB (HYDROCODONE-ACETAMINOPHEN)11/05/2005 1 - Mental Status Change MOBIC (MELOXICAM) 01/02/2011 14 - Other: See Comments Comments: [place] like something squeezing heart PROZAC (FLUOXETINE HCL) 05/13/2006 12 - Shortness of Breath Comments: sob,chest pains SEPTRA (SULFAMETHOXAZOLE-TRIMETHO*11/05/2005 8 - GI Upset SEROQUEL (QUETIAPINE FUMARATE) [...] Date Reviewed: 04/10/2022 Reviewed by: Faith Raygoza APRN.REFINERY OPERATOR [employer] - Fully Assessed Reason for Visit: Population [...] 3 times daily a (more content not included)...[facility]03-29-2023 NoteHNO ID: [id number] Author: Selene Miller MA Service: ? Author Type: Internal Affairs Investigator Type: Progress Notes Filed: 05/28/2022 12:53 PM Note Text: POPULATION HEALTH NAVIGATION OUTREACH Action/FYI NO ANSWER Data [employer]T MESSAGE SENT ANNUAL [facility] WELLNESS MAMMOGRAM due on 04/21/2019 URINE ALBUMIN:CREATININE RATIO due on 01/15/2022 DILATED RETINAL EXAM due on 03/13/2022 Patient Identified by Name and : NO Outreach Outcome/Action Unable to reach patient: Phone number not valid / voicemail full [employer]hart message sent Did you use a PCP [...] Selene Miller MA May 28, 2022 8:23 [facility]03-29-2023 History of Present illness Narrative* Selene Miller MA - 05/28/2022 8:23 AM EDT POPULATION HEALTH NAVIGATION OUTREACH Action/ NO ANSWER Anad[employer]ART MESSAGE SENT ANNUAL [facility] WELLNESS MAMMOGRAM due on 04/21/2019 URINE ALBUMIN:CREATININE RATIO due on 01/15/2022 DILATED RETINAL EXAM due on 03/13/2022 Patient Identified by Name and : NO Outreach Outcome/Action Unable to reach patient: Phone number not valid / voicemail full [employer]hart message sent Did you use a PCP [...] 28, 2022 8:23 AM documented in this encounterCommunity Memorial Hospital02-28-2023 Miscellaneous Notes* Telephone Encounter - Concepción Raygoza LPN - 04/29/2022 2:39 PM EST Last seen pcp 02/10/22. Next appt with pcp 10/08/22. * Telephone Encounter - Ceci Sanchez - 04/29/2022 11:18 AM EST Patient has been identified by name and [...] message once this is submitted Ceci Sanchez * Telephone Encounter - aRdha Sanchez - 04/14/2022 2:46 PM EST Patient has been identified by name and [...] pharmacy. No need to notify patient. Radha Sanchez documented in this encounterCommunity Memorial Hospital02-09-2023 History of Present illness Narrative* Faith Raygoza APRN.REFINERY OPERATOR [employer] - 04/10/2022 1:45 PM EST Images from the original note were not included. [facility] [place] Follow-[facility] Visit Follow-up note April 10, 2022 HPI: Ms. Devlin is a right handed female who presents today for a follow-up visit. Per her previous visit on 11/28/21: R25.1 Tremor (primary encounter diagnosis) Comment: Patient previously seen for tremor in general neurology office and prior to that was seen by movement disorder clinic. Hx and exam suggestive of essential tremor with superimposed functionaltremor. However, some exam findings still suggestive of [...] at time of previous visit with Dr. Waylon arredondo, pt will begin trial of low dose Sinemet 1/2 25-100mg tablet TID with meals. SE reviewed. Of note, pt reports she was unable to follow up with the movement disorder clinic since time of previousappointment as she is unable to travel father than [place]. Did discuss that if no improvement withinitiation of Sinemet, pt may need to return [...] MANIC EPISODE NOS 11/05/2005 Bipolar affective disorder ([facility]) 09/12/2009 depression at this point; no recent manic episodes; noted flare up ofr auditory hallucinations Bipolar I disorder, single manic episode (HCC) 11/05/2005 Carpal tunnel syndrome 11/05/2005 Bilateral DEPRESSIVE DISORDER NEC 11/05/2005 Diabetes mellitus type 2, insulin dependent ([facility]) DIABETES MELLITUS TYPE II-UNCOMPL 08/30/2000 Diverticulosis of [...] daily. Dx: Other DM Code E11.40. Insulin [place], Disposable, (BD INSULIN PEN NEEDLE UF) 29 [...] Status Change Mobic [Meloxicam] Other: See Comments [place] like something squeezing heart Prozac [Fluoxetine * [...] exam suggestive of essential tremor with superimposed functionaltremor. However, some exam findings still suggestive of [...] is almost time to take dose of medication.Discussed adjusting schedule so that medication is taken earlier in the day preventing periods of exacerbation of symptoms. She will adjust schedule to 7am, 1pm, and 7pm. If no improvement of breakthrough symptoms may consider increasing dose of medication verses return to movement disorder clinic. Faith Ryagoza APRN.SHAQUILLE I spent a total of 35 minutes on the date of the service which included preparing to see the patient, [id number] patient care, completing clinical documentation, obtaining and/or reviewing separately obtained history, performing a medically appropriate examination, counseling and educating the pat ient/family/caregiver, and ordering medications, tests, or procedures. documented in this encounterCommunity Memorial Hospital02-03-2023 Miscellaneous Notes* Telephone Encounter - Katy Martinez LPN - 04/04/2022 11:11 AM EST Spoke with pt and information listed below given. Pt verbalizes understanding. Katy Martinez LPN * Telephone Encounter - Sagrario Mosqueda MD - 04/03/2022 5:41 PM EST Below noted. The following approved medication requests have been transmitted electronically. Requested Prescriptions Signed Prescriptions Disp Refills diclofenac, EC, (VOLTAREN) 75 mg EC tablet 180 tablet 1 Sig: Take 1 tablet by mouth twice daily. For pain/inflammation. Take with food. Authorizing Provider: SAGRARIO MOSQUEDA MD * Telephone Encounter - Katy Martinez LPN - 04/03/2022 2:25 PM EST Pt called in to report she is [...] you. Katy Martinez LPN documented in this encounterCommunity Memorial Hospital01-11-2023 Miscellaneous Notes* Telephone Encounter - Radha Bauman LPN - 03/12/2022 4:50 PM EST Duplicate request. Radha Bauman LPN documented in this encounterCommunity Memorial Hospital01-04-2023 Miscellaneous Notes* Telephone Encounter - Jannette Thorne JADEN - 03/05/2022 11:48 AM EST Patient has been identified by name and [...] exam suggestive of essential tremor with superimposed functionaltremor. However, some exam findings still suggestive of [...] at time of previous visit with Dr. Waylon arredondo, pt will begin trial of low dose Sinemet 1/2 25-100mg tablet TID with meals. SE reviewed. Of note, pt reports she was unable to follow up with the movement disorder clinic since time of previousappointment as she is unable to travel father than [place]. Did discuss that if no improvement withinitiation of Sinemet, pt may need to return to the movement disorder clinic for further treatment options and she voiced understanding. Faith Raygoza, JAY.REFINERY OPERATOR [employer] Last 2 Encounter Wt Readings: Date: Wt: 02/10/2022 110.7 kg (244 lb) 11/28/2021 110.2 kg (243 lb) Please advise. Thank you. Jannette Thorne LPN documented in this encounterCommunity Memorial Hospital12-12-2022 History of Present illness Narrative* Sagrario Mosqueda MD - 02/10/2022 5:33 PM EST This note was created using [employer]. Subjective Tiffanie Devlin is a 66 year old female. Patient presents with: F/U 6 months SUBJECTIVE: Tiffanie Delvin is a 66 year old year old [...] daily. Dx: Other DM Code E11.40. Insulin [place], Disposable, (BD INSULIN PEN NEEDLE UF) 29 [...] lifestyle changes for effective weight loss as wellas control of DM, and control of BP and lipids. Sagrario Mosqueda MD documented in this encounterCommunity Memorial Hospital10-10-2022 Miscellaneous Notes* Telephone Encounter - Faith Raygoza APRN.SHAQUILLE - 12/09/2021 4:49 PM EDT Will continue with current dose of one full tablet TID until time of follow up. * Telephone Encounter - Marisabel Iverson LPN - 12/09/2021 3:01 PM EDT Spoke with patient and she states that she has for about the last two weeks been taking a full tablet of sinemet three times daily. * Telephone Encounter - Faith Raygoza APRN.CNP - 12/09/2021 2:12 PM EDT She can increase to one full tablet TID. New prescription sent to her [facility] in [place] for update script: Sinemet 25-100mg TID with meals. * Telephone Encounter - Krystle Brown RN - 12/09/2021 10:31 AM EDT Patient calls to give provider update since [...] would like prescription to be sent to [facility] in [place]. Please review and advise, Krystle Brown RN documented in this encounterCommunity Memorial Hospital09-29-2022 History of Present illness Narrative* Faith Raygoza APRN.CNP - 11/28/2021 1:45 PM EDT Images from the original note were not included. [facility] [place] Follow-up Visit Follow-up note November 28, 2021 HPI: Ms. Devlin presents today for a follow-up visit. Per her previous visit with Dr. Poole on 08/09/21: 1. Tremor - ICD9: 781.0, ICD10: R25.1 [...] which are quite limited given the number ofmeds she has already failed due to side [...] place on trial of Keppra 250mg BID withpt understanding possible SE and ADRs. If no improvement on Keppra or SE then can consider trial oflow dose Sinemet next. If still no response [...] MANIC EPISODE NOS 11/05/2005 Bipolar affective disorder ([facility]) 09/12/2009 depression at this point; no recent manic episodes; noted flare up ofr auditory hallucinations Bipolar I disorder, single manic episode ([facility]) 11/05/2005 Carpal tunnel syndrome 11/05/2005 Bilateral DEPRESSIVE DISORDER NEC 11/05/2005 Diabetes mellitus type 2, insulin dependent ([facility]) DIABETES MELLITUS TYPE II-UNCOMPL 08/30/2000 Diverticulosis of [...] daily. Dx: Other DM Code E11.40. Insulin [place], Disposable, (BD INSULIN PEN NEEDLE UF) 29 [...] Status Change Mobic [Meloxicam] Other: See Comments [place] like something squeezing heart Prozac [Fluoxetine * [...] exam suggestive of essential tremor with superimposed functionaltremor. However, some exam findings still suggestive of [...] at time of previous visit with Dr. Waylon arredondo, pt will begin trial of low dose Sinemet 1/2 25-100mg tablet TID with meals. SE reviewed. Of note, pt reports she was unable to follow up with the movement disorder clinic since time of previousappointment as she is unable to travel father than [place]. Did discuss that if no improvement withinitiation of Sinemet, pt may need to return to the movement disorder clinic for further treatment options and she voiced understanding. Faith Raygoza APRN.SHAQUILLE I spent a total of 35 minutes on the date of the service which included preparing to see the patient, [id number] patient care, completing clinical documentation, obtaining and/or reviewing separately obtained history, performing a medically appropriate examination, counseling and educating the pat ient/family/caregiver, and ordering medications, tests, or procedures. documented in this encounterCommunity Memorial Hospital08-11-2022 Miscellaneous Notes* Telephone Encounter - Sagrario Mosqueda MD - 10/10/2021 3:58 PM EDT Okayed * Telephone Encounter - Concepción Raygoza LPN - 10/10/2021 1:18 PM EDT Last seen CAD OPERATOR 06/10/21. Next appt with pcp 02/10/22. * Telephone Encounter - Yasmine Caballero Pss - 10/10/2021 12:35 PM EDT Patient has been identified by name and date of : Yes Requested Prescriptions Pending Prescriptions Disp Refills diclofenac, EC, (VOLTAREN) 75 mg EC tablet 90 tablet 3 Sig: Take 1 tablet by mouth twice daily. For pain/inflammation. Take with food. RX INSTRUCTIONS: Patient aware RX will be sent to pharmacy. No need to notify patient. Yasmine Caballero Pss documented in this encounterCommunity Memorial Hospital07-19-2022 History of Present illness Narrative* Marianela Shearer - 09/17/2021 12:31 PM EDT FOLLOW UP PODIATRIC OFFICE VISIT Chief Complaint: This 66 year old who presents for callus vs wart of right 2nd toe. Patient presents to clinic for evaluation of right foot. She complains of thick skin lesion of right 2nd toe. She is unsure if it is callus vs wart. She complains of pain with walking. She did manageto get some relief by picking the lesion the other day. She has no other complaints. PAIN EVALUATION No data found in the last 1 encounters. Hemoglobin A1C Date Value Ref Range Status 06/10/2021 6.2 (H) 4.3 - 5.6 % Final Comment: [place] [employer] guidelines indicate that patients with [...] daily. Dx: Other DM Code E11.40. 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 Marianela Shearer DPM * Seema Garcia RN - 09/17/2021 10:57 AM EDT AMB ROOMING INTAKE FLOWSHEET DATA Risk Screening [...] it is not painful. documented in this encounterCommunity Memorial Hospital07-19-2022 Instructions* Patient Instructions* Marianela Shearer - 09/17/2021 11:36 AM EDT You had callus of right 2nd toe. No ulceration beneath. If callus returns, call for an appointment documented in this encounterCommunity Memorial Hospital06-10-2022 History of Present illness Narrative* Munir Poole Jr., MD - 08/09/2021 2:36 PM EDT NEW PATIENT (CONSULT) HISTORY AND PHYSICAL EXAM PRIMARY CARE PHYSICIAN: Sagrario Mosqueda MD REASON FOR CONSULT: Tremors REFERRING PHYSICIAN: Ricardo Benedict APRN.BRICK MASON CHIEF COMPLAINT: Tremors Consultation requested by Ricardo Benedict APRN.BRICK MASON for an opinion regarding chief complaint of Patient presents with: Tremor: hands, chin and sometimes legs and my final recommendations will be communicated back to the requesting physician by way of sharedmedical record or letter via US mail. HISTORY [...] Suspect functional overlay. Tremors were consistent in multiplebody parts at once so likely does have essential tremor. She has already tried and not tolerated duane midone, Topamax, Zonegran. Cannot take beta blockers. Unfortunately [...] and goes. States it keeps her from doingeverything. States sometimes wants to reach out and take something and hand does not respond or foot does not respond. States dreads getting out of bed in the AM, because the tremors stop. States shecould not see Dr. Andrade again because she [...] daily. Dx: Other DM Code E11.40. Insulin [place], Disposable, (BD INSULIN PEN NEEDLE UF) 29 [...] Not necessarily present at rest at all times,and sometimes appear to resolve with distraction. Possible [...] in dopamine antagonism) such as masked facies andabnormal gait. Discussed with patient treatment options which are quite limited given the number ofmeds she has already failed due to side [...] place on trial of Keppra 250mg BID withpt understanding possible SE and ADRs. If no improvement on Keppra or SE then can consider trial oflow dose Sinemet next. If still no response would then ask [facility]REST to again evaluate patient for other options if any available. Pt agrees with plan above. Munir Poole MD I spent a total of 45 minutes on the date of the service which included preparing to see the patient, kxsc-yr-rist patient care, completing clinical documentation, obtaining and/or reviewing separately obtained history, performing a medically appropriate examination, counseling and educating the pat ient/family/caregiver, ordering medications, tests, or procedures, communicating with other HCPs (not separately reported), independently interpreting results (not separately reported) and communicating results to the patient/family/caregiver. 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 HTN: Without report ofheadache, chest pain, palpitations, dyspnea, peripheral edema, orthopnea, fatigue and PND. Last 3 Encounter BP Readings: Date: BP: 06/10/2021 140/72 11/30/2020 146/74 10/26/2020 140/72 Notes tremor still bothersome, head and hands. Notes gabapentin helped but she was drowsy in a.m. after taking at bedtime. Helped with aches and pains as well. Prefers not to take at this time. Notesproblems with primidone and topirimate also. Notes using [...] Abs Lymph 1.00 - 4.00 k/uL 2.83 Bull[place]% % 7.7 Abs [place] <0.87 k/uL 0.92 (H) Eosin% % 2.9 [...] (L) 51.7 The 10-year ASCVD risk score (Elizabethnimo OREILLY Jr., et al., 2013) is: 16.3% Values [...] with long-term current use of insulin (HCC) -ICD9: 250.60, 357.2, V58.67, ICD10: E11.40, Z79.4 (primary [...] hypertension - ICD9: 401.9, ICD10: I10 At [facility], continue current treatment for now. Stable, continue [...] Level: 4 - Moderate [facility] of Past illness Narrative* Problem Noted [...] of this encounter (statuses as of 06/10/2021) [facility] Narrative* Problem Noted [...] of this encounter (statuses as of 08/09/2021) [facility] Narrative* Problem Noted [...] of this encounter (statuses as of 09/17/2021) [facility] Narrative* Problem Noted [...] of this encounter (statuses as of 10/10/2021) [facility] Narrative* Problem Noted [...] of this encounter (statuses as of 11/28/2021) [facility] N[facility]* Problem Noted [...] of this encounter (statuses as of 12/09/2021) [facility] Narrative* Problem Noted [...] of this encounter (statuses as of 01/13/2022) [facility] N[facility]* Problem Noted [...] of this encounter (statuses as of 03/07/2022) [facility] N[facility]* Problem Noted [...] of this encounter (statuses as of 03/12/2022) [facility] N[facility]* Problem Noted [...] of this encounter (statuses as of 03/17/2022) [facility] N[facility]* Problem Noted [...] of this encounter (statuses as of 04/04/2022) [facility] N[facility]* Problem Noted [...] of this encounter (statuses as of 04/10/2022) [facility] N[facility]* Problem Noted [...] of this encounter (statuses as of 04/29/2022) [facility]* Problem Noted [...] of this encounter (statuses as of 05/28/2022) [facility]* Problem Noted [...] of this encounter (statuses as of 08/15/2022) [facility]* Problem Noted [...] of this encounter (statuses as of 08/15/2022) [facility]* Problem Noted [...] of this encounter (statuses as of 08/20/2022) [facility]* Problem Noted [...] of this encounter (statuses as of 08/22/2022) [facility]* Problem Noted [...] of this encounter (statuses as of 08/23/2022) [facility]* Problem Noted [...] of this encounter (statuses as of 08/26/2022) [facility]* Problem Noted [...] of this encounter (statuses as of 08/27/2022) [facility]* Problem Noted [...] of this encounter (statuses as of 09/18/2022) [facility]* Problem Noted [...] of this encounter (statuses as of 10/30/2022) [facility] Narrative* Problem Noted [...] DIABETES 11/05/200512/07 Depressive disorder, not elsewhere classified 11/06/1905/23/2019 documented as of this encounter (statuses as of 10/30/2022) [place] [address]-14-2017 History of Past illness Narrative* Problem Noted [...] DIABETES 11/05/200512/07 Depressive disorder, not elsewhere classified 11/06/1905/23/2019 documented as of this encounter (statuses as of 12/26/2022) [facility] Narrative* Problem Noted [...] DIABETES 11/05/200512/07 Depressive disorder, not elsewhere classified 11/06/1905/23/2019 documented as of this encounter (statuses as of 12/26/2022) [facility] Narrative* Problem Noted [...] DIABETES 11/05/200512/07 Depressive disorder, not elsewhere classified 11/06/1905/23/2019 documented as of this encounter (statuses as of 12/29/2022) [facility] Narrative* Problem Noted [...] of this encounter (statuses as of 01/06/2023) [facility]* Diagnosis Type 2 diabetes mellitus with [...] forms of tremor [facility] Diagnosis Tremor- Primary Abnormal involuntary movements [facility] Diagnosis Hyperkeratosis- Primary Acquired keratoderma [facility]* Diagnosis Tremor- Primary Abnormal involuntary movements documented in this encounter [facility]* Diagnosis Encounter for screening mammogram for breast cancer documented in this encounter [facility]* Diagnosis Type 2 diabetes mellitus with [...] stated as uncontrolled documented in this encounter [facility] note* Diagnosis Type 2 diabetes mellitus with diabetic neuropathy, with long-term current use of insulin ([facility]) Tremor- Primary Abnormal involuntary movements documented in this encounter [facility] note* Diagnosis Essential hypertension Unspecified essential hypertension Dysuria Type 2 diabetes mellitus with diabetic neuropathy, with long-term current use of insulin ([facility]) documented in this encounter [facility] note* Diagnosis Tremor- Primary Abnormal involuntary movements Transient cerebral ischemia, unspecified type Facial weakness [facility]* Diagnosis Controlled type 2 diabetes mellitus with diabetic neuropathy, with long-term current use of insulin (HCC)- Primary Callus Corns and callosities Soft tissue mass Disorders of soft tissue, unspecified [facility]* Diagnosis Type 2 diabetes mellitus with [...] hypertension Mixed hyperlipidemia [facility] Mixed hyperlipidemia [facility] Diagnosis Type 2 diabetes mellitus with diabetic neuropathy, with long-term current use of insulin (HCC)- Primary Mixed hyperlipidemia Tremor, essential Essential and other specified forms of tremor Primary hypertension Unspecified essential hypertension Class 3 severe obesity due to excess calories with body mass index (BMI) of 40.0 to 44.9 in adult, unspecified whether serious comorbidity present (HCC) documented [facility] this encounter [facility]* Diagnosis Type 2 diabetes mellitus with diabetic neuropathy, with long-term current use of insulin (HCC)- Primary [facility]* Diagnosis Type 2 diabetes mellitus with diabetic neuropathy, with long-term current use of insulin (HCC)- Primary Hypoglycemia Hypoglycemia, unspecified documented [facility] this encounter [facility]* Diagnosis Type 2 diabetes mellitus with diabetic neuropathy, with long-term current use of insulin (HCC) documented [facility] this encounter [facility]* Diagnosis Encounter for screening mammogram for breast cancer documented [facility] this encounter [facility]* Diagnosis Physical debility- Primary Debility, unspecified Type 2 diabetes mellitus with diabetic neuropathy, with long-term current use of insulin (HCC) Hyperthyroidism Thyrotoxicosis without mention of goiter or other cause, without mention of thyrotoxic crisis or storm Atrial flutter with rapid ventricular response (HCC) Atrial flutter Fibromyalgia Mylagia and myositis, unspecified Parkinson's disease without dyskinesia, unspecified whether manifestations fluctuate (HCC) Need for shingles vaccine Need for prophylactic vaccination and inoculation against other viral diseases Encounter for immunization Need for other specified prophylactic vaccination against single bacterial disease documented [facility] this encounter [facility]* Diagnosis Essential hypertension Unspecified essential hypertension documented in this encounter [facility] for referral (narrative)* Diagnostic Procedure Only (Routine) - Pending Review Specialty Diagnoses / Procedures Referred By Dave sanchez Referred To Contact [facility] Diagnoses Encounter for screening mammogram for breast cancer Procedures FORD SCREENING SCREENING MAMMOGRAPHY BI 2-VIEW BREAST INC CAD Sagrario Mosqueda MD [address] [place] [address] [facility] [address] [place] [address] Referral ID Status Reason Start Date Expiration Date Visits Requested Visits Authorized [id number] Pending Review Auto-Generat ed Referral 01/08/2022 02/07/2023 1 1 [facility] Diagnostic Procedure Only (Routine) - Pending Review Specialty Diagnoses / Procedures Referred By Dave t Referred To Contact [facility] Diagnoses Encounter for screening mammogram for breast cancer Procedures FORD SCREENING SCREENING MAMMOGRAPHY BI 2-VIEW BREAST INC CAD Sagrario Mosqueda MD [address] [place] [address] [facility] [address] [place] [id number] Referral ID Status Reason Start Date Expiration Date Visits Requested Visits Authorized [id number] Pending Review Auto-Generat ed Referral 12/31/2022 01/30/2024 1 1 [facility] Reason for Referral Specialty Diagnoses / Procedures Referred By Dave t Referred To Contact [facility] Diagnoses Tremor, essential Type 2 diabetes mellitus with diabetic neuropathy, with long-term current use of insulin (HCC) Generalized weakness Procedures CONSULT TO PHYSICAL THERAPY PHYSICAL THERAPY EVALUATION HIGH COMPLEX 45 MINS Ricardo Benedict, JAY.BRICK MASON [address] [place] [address] [facility] [place] [address] [place] [address] Referral ID Status Reason Start Date Expiration Date Visits Requested Visits Authorized [id number] Authorized PCP Requested Referral Auto-Generate d Referral 06/10/2021 06/10/2022 99 99 Specialty Diagnoses / Procedures Referred By Dave t Referred To Contact [facility] Diagnoses Asthma, unspecified asthma severity, unspecified whether complicated, unspecified whether persistent Procedures SPIROMETRY WITH DILATOR IF OBSTRUCTED BRNCDILAT RSPSE SPMTRY PRE&POST-BRNCDILAT ADMN Ricardo Benedict, JAY.BRICK MASON [address] [place] [address] [facility] [place] [address] [place] [address] Referral ID Status Reason Start Date Expiration Date Visits Requested Visits Authorized [id number] Authorized Auto-Generat ed Referral 06/10/2021 07/10/2022 1 1 Specialty Diagnoses / Procedures Referred By Contac t Referred To Contact Neurology Diagnoses Tremor, essential Procedures CONSULT TO NEUROLOGY OFFICE/OUTPATIENT [facility] 60-74 MINUTES Ricardo Benedict, CONCRETE [employer]ANT SUPERVISOR.BRICK MASON [address] [place] [address] Referral ID Status Reason Start Date Expiration Date Visits Requested Visits Authorized [id number] Authorized PCP Requested Referral 06/10/2021 06/10/2022 1 1 Specialty Diagnoses / Procedures Referred By Contac t Referred To Contact Neurology Diagnoses Tremor Procedures CONSULT TO NEUROLOGY OFFICE/OUTPATIENT [facility] 60-74 MINUTES Faith Raygoza, CONCRETE PIPE PLANT SUPERVISOR.REFINERY OPERATOR [employer] [address] [place] [id number] Referral ID Status Reason Start Date Expiration Date Visits Requested Visits Authorized [id number] Authorized PCP Requested Referral 08/14/2022 08/14/2023 1 1 Specialty Diagnoses / Procedures Referred By Contac t Referred To Contact [facility] Diagnoses Transient cerebral ischemia, unspecified type Procedures MRI BRAIN WO IVCON MRI BRAIN BRAIN STEM W/O CONTRAST MATERIAL Faith Raygoza, CONCRETE P[employer]ANT SUPERVISOR.REFINERY OPERATOR [employer] [address] [place] [phone] [facility] Referral ID Status Reason Start Date Expiration Date Visits Requested Visits Authorized [id number] Authorized Auto-Generat ed Referral 08/14/2022 09/13/2023 1 1 Specialty Diagnoses / Procedures Referred By Contac t Referred To Contact [facility] Diagnoses Callus Soft tissue mass Procedures MRI FOOT/TOES WO/W IVCON RIGHT MRI LOWER EXTREM OTH/THN JT W/O & W/[place] [address] [facility] Referral ID Status Reason Start Date Expiration Date Visits Requested Visits Authorized [id number] Authorized Auto-Generat ed Referral 08/15/2022 09/14/2023 1 1 Specialty Diagnoses / Procedures Referred By Contac t Referred To Contact XR IMAGING Diagnoses Callus Soft tissue mass Procedures XR FOOT GENERAL 3V AP/LAT/OBL RIGHT RADEX FOOT COMPLETE MINIMUM 3 VIEWS Marianela [address] [place] [address] Xr Imaging Referral ID Status Reason Start Date Expiration Date V isits Requested Visits Authorized [id number] Closed Auto-Generate d Referral 08/15/2022 09/14/2023 1 [...] or prosecute any alcohol or drug abuse patient.[facility] HospitalIn the event this information is protected by the Federal Confidentiality of Alcohol and Drug Abuse Patient Records regulations: The Federal rules restrict any use of the information to criminally investigate or prosecute any alcohol or drug abuse patient.[facility] HospitalIn the event this information is protected by the Federal Confidentiality of Alcohol and Drug Abuse Patient Records regulations: The Federal rules restrict any use of the information to criminally investigate or prosecute any alcohol or drug abuse patient.[facility] HospitalIn the event this information is protected by the Federal Confidentiality of Alcohol and Drug Abuse Patient Records regulations: The Federal rules restrict any use of the information to criminally investigate or prosecute any alcohol or drug abuse patient.[facility] HospitalIn the event this information is protected by the Federal Confidentiality of Alcohol and Drug Abuse Patient Records regulations: The Federal rules restrict any use of the information to criminally investigate or prosecute any alcohol or drug abuse patient.[facility] HospitalIn the event this information is protected by the Federal Confidentiality of Alcohol and Drug Abuse Patient Records regulations: The Federal rules restrict any use of the information to criminally investigate or prosecute any alcohol or drug abuse patient.[facility] HospitalIn the event this information is protected by the Federal Confidentiality of Alcohol and Drug Abuse Patient Records regulations: The Federal rules restrict any use of the information to criminally investigate or prosecute any alcohol or drug abuse patient.[facility] HospitalIn the event this information is protected by the Federal Confidentiality of Alcohol and Drug Abuse Patient Records regulations: The Federal rules restrict any use of the information to criminally investigate or prosecute any alcohol or drug abuse patient.[facility] HospitalIn the event this information is protected by the Federal Confidentiality of Alcohol and Drug Abuse Patient Records regulations: The Federal rules restrict any use of the information to criminally investigate or prosecute any alcohol or drug abuse patient.[facility] HospitalIn the event this information is protected by the Federal Confidentiality of Alcohol and Drug Abuse Patient Records regulations: The Federal rules restrict any use of the information to criminally investigate or prosecute any alcohol or drug abuse patient.[facility] HospitalIn the event this information is protected by the Federal Confidentiality of Alcohol and Drug Abuse Patient Records regulations: The Federal rules restrict any use of the information to criminally investigate or prosecute any alcohol or drug abuse patient.[facility] HospitalIn the event this information is protected by the Federal Confidentiality of Alcohol and Drug Abuse Patient Records regulations: The Federal rules restrict any use of the information to criminally investigate or prosecute any alcohol or drug abuse patient.[facility] HospitalIn the event this information is protected by the Federal Confidentiality of Alcohol and Drug Abuse Patient Records regulations: The Federal rules restrict any use of the information to criminally investigate or prosecute any alcohol or drug abuse patient.[facility] HospitalIn the event this information is protected by the Federal Confidentiality of Alcohol and Drug Abuse Patient Records regulations: The Federal rules restrict any use of the information to criminally investigate or prosecute any alcohol or drug abuse patient.[facility] HospitalIn the event this information is protected by the Federal Confidentiality of Alcohol and Drug Abuse Patient Records regulations: The Federal rules restrict any use of the information to criminally investigate or prosecute any alcohol or drug abuse patient.[facility] HospitalIn the event this information is protected by the Federal Confidentiality of Alcohol and Drug Abuse Patient Records regulations: The Federal rules restrict any use of the information to criminally investigate or prosecute any alcohol or drug abuse patient.[facility] HospitalIn the event this information is protected by the Federal Confidentiality of Alcohol and Drug Abuse Patient Records regulations: The Federal rules restrict any use of the information to criminally investigate or prosecute any alcohol or drug abuse patient.[facility] HospitalIn the event this information is protected by the Federal Confidentiality of Alcohol and Drug Abuse Patient Records regulations: The Federal rules restrict any use of the information to criminally investigate or prosecute any alcohol or drug abuse patient.[facility] HospitalIn the event this information is protected by the Federal Confidentiality of Alcohol and Drug Abuse Patient Records regulations: The Federal rules restrict any use of the information to criminally investigate or prosecute any alcohol or drug abuse patient.[facility] HospitalIn the event this information is protected by the Federal Confidentiality of Alcohol and Drug Abuse Patient Records regulations: The Federal rules restrict any use of the information to criminally investigate or prosecute any alcohol or drug abuse patient.[facility] HospitalIn the event this information is protected by the Federal Confidentiality of Alcohol and Drug Abuse Patient Records regulations: The Federal rules restrict any use of the information to criminally investigate or prosecute any alcohol or drug abuse patient.[facility] HospitalIn the event this information is protected by the Federal Confidentiality of Alcohol and Drug Abuse Patient Records regulations: The Federal rules restrict any use of the information to criminally investigate or prosecute any alcohol or drug abuse patient.[facility] HospitalIn the event this information is protected by the Federal Confidentiality of Alcohol and Drug Abuse Patient Records regulations: The Federal rules restrict any use of the information to criminally investigate or prosecute any alcohol or drug abuse patient.[facility] HospitalIn the event this information is protected by the Federal Confidentiality of Alcohol and Drug Abuse Patient Records regulations: The Federal rules restrict any use of the information to criminally investigate or prosecute any alcohol or drug abuse patient.[facility] HospitalIn the event this information is protected by the Federal Confidentiality of Alcohol and Drug Abuse Patient Records regulations: The Federal rules restrict any use of the information to criminally investigate or prosecute any alcohol or drug abuse patient.[facility] HospitalIn the event this information is protected by the Federal Confidentiality of Alcohol and Drug Abuse Patient Records regulations: The Federal rules restrict any use of the information to criminally investigate or prosecute any alcohol or drug abuse patient.[facility] HospitalIn the event this information is protected by the Federal Confidentiality of Alcohol and Drug Abuse Patient Records regulations: The Federal rules restrict any use of the information to criminally investigate or prosecute any alcohol or drug abuse patient.[facility] HospitalIn the event this information is protected by the Federal Confidentiality of Alcohol and Drug Abuse Patient Records regulations: The Federal rules restrict any use of the information to criminally investigate or prosecute any alcohol or drug abuse patient.[facility] HospitalIn the event this information is protected by the Federal Confidentiality of Alcohol and Drug Abuse Patient Records regulations: The Federal rules restrict any use of the information to criminally investigate or prosecute any alcohol or drug abuse patient.[facility] Hospital[facility] the event this information is protected by the Federal Confidentiality of Alcohol and Drug Abuse Patient Records regulations: The Federal rules restrict any use of the information to criminally investigate or prosecute any alcohol or drug abuse patient.[facility] Reason for Visit (unrecogniz ed section and content) Reason Comments Tremor hands, chin and some times legs Specialty Diagnoses / Procedures Referred By Dave sanchez Referred To Contact Neurology Diagnoses Tremor, essential Procedures CONSULT TO NEUROLOGY OFFICE/OUTPATIENT NEW HIGH MDM 60-74 MINUTES Ricardo Benedict, JAY.BRICK MASON [address] [place] [address] Referral ID Status Reason Start Date Expiration Date V isits Requested Visits Authorized [id number] Closed PCP Requested Referral 06/10/2021 06/10/2022 1 1 Reason Comments Established Patient Callus Reason Onset Date Comments Refill Request 10/10/2021 Reason Comments Established Patient 3 month follow up tr emors Reason Comments Patient Update Reason Comments Refill Request Reason Comments Med Change Request Reason Comments F/U 6 months Reason Comments Follow Up Reason Onset Date Comments Refill Request Refill Request 04/29/2022 NEW PHARMACY [facility] NG MAIL ORDER: SEE RX NOTES Reason Onset Date Comments Population Health Navigation Outreach 05/28/2022 ACO ENERGY PCSA Reason Comments Follow Up 4 Month F/U Reason Comments Established Patient Wart Reason Comments Medication Problem Reason Comments Recheck neuro visit for poss ible stroke Reason Comments walker DME Reason Onset Date Comments Refill Request 08/26/2022 Reason Comments 8 month follow up Reason Comments receipt of fax Reason Comments Low Blood Sugar Reason Comments low blood sugars Reason Comments Results Reason Comments Hospital F/U Care Teams (unrecognized sec tion and content) Director Food And Beverage Relationship Specialty Start Date End Date Sagrario Mosqueda MD [address] [place], [place] [address] PCP - General 11/24/05 Susie Em RPh [address] [place], [place] [id number] Pharmacist Pharmacy 01/13/20 Director Food And Beverage Relationship Specialty Start Date End Date Sagrario Mosqueda MD [address] [place] [address] PCP - General 11/24/05 [facility] [address] [place] [address] Pharmacist Pharmacy 01/13/20 Director Food And Beverage Relationship Specialty Start Date End Date Sagrario Mosqueda MD [address] [place] [address] PCP - General 11/24/05 [facility] [address] [place] [address] Pharmacist Pharmacy 01/13/20 Director Food And Beverage Relationship Specialty Start Date End Date Sagrario Mosqueda MD [address] [place] [address] PCP - General 11/24/05 AmolSsuie, [facility] [address] [place] [address] Pharmacist Pharmacy 01/13/20 Director Food And Beverage Relationship Specialty Start Date End Date Sagrario Mosqueda MD [address] [place] [address] PCP - General 11/24/05 [facility] [address] [place] [address] Pharmacist Pharmacy 01/13/20 Director Food And Beverage Relationship Specialty Start Date End Date Sagrario Mosqueda MD [address] [place] [address] PCP - General 11/24/05 [facility] [address] [place] [address] Pharmacist Pharmacy 01/13/20 Director Food And Beverage Relationship Specialty Start Date End Date Sagrario Mosqueda MD [address] [place] [address] PCP - General 11/24/05 Susie Em, [facility] [address] [place] [address] Pharmacist Pharmacy 01/13/20 Director Food And Beverage Relationship Specialty Start Date End Date Sagrario Mosqueda MD [address] [place] [address] PCP - General 11/24/05 Susie Em, [facility] [address] [place] [address] Pharmacist Pharmacy 01/13/20 Director Food And Beverage Relationship Specialty Start Date End Date Sagrario Mosqueda MD [address] [place] [address] PCP - General 11/24/05 Susie Em, [facility] [address] [place] [address] Pharmacist Pharmacy 01/13/20 Director Food And Beverage Relationship Specialty Start Date End Date Sagrario Mosqueda MD [address] [place] [address] PCP - General 11/24/05 AmolSusie, [facility] [address] [place] [address] Pharmacist Pharmacy 01/13/20 Director Food And Beverage Relationship Specialty Start Date End Date Sagrario Mosqueda MD [address] [place] [address] PCP - General 11/24/05 AmolSusie, [facility] [address] [place] [address] Pharmacist Pharmacy 01/13/20 Director Food And Beverage Relationship Specialty Start Date End Date Sagrario Mosqueda MD [address] [facility] [place] [address] PCP - General 11/24/05 Susie Em, [facility] [address] [place] [address] Pharmacist Pharmacy 01/13/20 Director Food And Beverage Relationship Specialty Start Date End Date Sagrario Mosqueda MD [address] [facility] [place] [address] PCP - General 11/24/05 Susie Em, [facility] [address] [facility] [place] [address] Pharmacist Pharmacy 01/13/20 Director Food And Beverage Relationship Specialty Start Date End Date Sagrario Mosqueda MD [address] [place] [address] PCP - General 11/24/05 Susie Em, [facility] [address] [place] [address] Pharmacist Pharmacy 01/13/20 Director Food And Beverage Relationship Specialty Start Date End Date Sagrario Mosqueda MD [address] [facility] [place] [address] PCP - General 11/24/05 Susie Em, [facility] [address] [facility] [place] [address] Pharmacist Pharmacy 01/13/20 Director Food And Beverage Relationship Specialty Start Date End Date Sagrario Mosqueda MD [address] [facility] [place] [place] [address] PCP - General 11/24/05 Susie Em, [facility] [address] [place] [address] Pharmacist Pharmacy 01/13/20 Director Food And Beverage Relationship Specialty Start Date End Date Sagrario Mosqueda MD [address] [place] [address] PCP - General 11/24/05 [facility] [address] [place] [address] Pharmacist Pharmacy 01/13/20 Director Food And Beverage Relationship Specialty Start Date End Date Sagrario Mosqueda MD [address] [place] [address] PCP - General 11/24/05 [facility] [address] [place] [address] Pharmacist Pharmacy 01/13/20 Director Food And Beverage Relationship Specialty Start Date End Date Sagrario Mosqueda MD [address] [place] [address] PCP - General 11/24/05 [facility] [address] [place] [address] Pharmacist Pharmacy 01/13/20 Director Food And Beverage Relationship Specialty Start Date End Date Sagrario Mosqueda MD [address] [place] [address] PCP - General 11/24/05 Director Food And Beverage Relationship Specialty Start Date End Date Sagrario Mosqueda MD [address] [place] [address] PCP - General 11/24/05 INFORMATION SOURCE (unrecogn ized section and content) [...] BE BASED ON THE PRIMARY CLINICAL RECORDS. [facility]. provides no warranty or guarantee of the accuracy or completeness of information in this document.
[2023-05-08 21:00] VITALS: BP 149/56; PULSE 90; RESP 16; TEMP 36.4; O2SAT 98
== END 2023-05-08 21:16 | disposition home or self-care (01) ==
PROVIDERS: Emergency Provider Emergency Medicine; Visit Provider Emergency Medicine
DX: R22.1 Localized swelling, mass and lump, neck (principal); E11.9 Type 2 diabetes mellitus without complications; Z79.4 Long term (current) use of insulin; T78.1XXA Other adverse food reactions, not elsewhere classified, initial encounter; I10 Essential (primary) hypertension; E78.5 Hyperlipidemia, unspecified; Z79.899 Other long term (current) drug therapy; Z90.49 Acquired absence of other specified parts of digestive tract; Z90.710 Acquired absence of both cervix and uterus
CPT/HCPCS: 82962; 99284

== ENCOUNTER → 2023-06-04 | Outpatient (CLI) | payer MEDICARE, MEDICAID, SELFPAY | END | disposition home or self-care (01) | LOC: PSN 13:57 | PROVIDERS: Referring Provider Physician Assistant Medical; Visit Provider Physician Assistant Medical | DX: I47.19 Other supraventricular tachycardia (principal) | CPT/HCPCS: 93225; 93226 ==

== ENCOUNTER 2023-12-24 16:39 | Emergency (ER) | payer MEDICARE, MEDICAID, SELFPAY ==
[2023-12-24 16:40] VITALS: BP 122/82; PULSE 77; RESP 16; TEMP 36.6; O2SAT 98; BMI 40.2
[2023-12-24 18:40] VITALS: BP 150/105; PULSE 68; RESP 14; O2SAT 98
--- NOTE | 2023-12-24 18:59 | EDS_ITS ---
HPI History of Present Illness Chief Complaint: Foreign Body Informant: patient and EMS Narrative Narrative: 68-year-old female states she has a foreign body in her throat, it is her pills. She states that she takes about 20 pills at a time but she cannot swallow them any so she takes them a couple at a time and multiple aliquots. She states she did that this morning, she felt fine and then she drinks milk and suddenly started vomiting and felt a foreign body sensation in her throat and assumed that her pills were stuck. She states she went 7 hours like this, calling EMS to evaluate her once, but they said that she seemed to be okay and they left, but came back later when she called again. She states that throughout this time she was trying to drink fluids and continuing to vomited up and not able to pass anything. She did not have any coughing or dyspnea. She states when paramedics came back in and put her on the cot and laid her down she felt something suddenly shift, and she felt like they passed and went down. Now she does not have any discomfort except for when she burps. She is able to drink water without any difficulty now and denies any other complaints. She denies any history of esophageal dilatations. [facility] Medical History Paroxysmal atrial flutter Thyrotoxicosis due to Graves' disease Anxiety Depression Diabetes Non-smoker Asthma History of left heart catheterization Hyperlipidemia Hypertension Tremor Home Medications ?Medication ?Instructions ?Recorded ?Last Taken ?Type amlodipine 10 mg tablet 1 tab PO DAILY BLOOD PRESSURE 05/27/17 04/03/23 History clonidine HCl 0.3 mg tablet 1 tab PO BID BLOOD PRESSURE 05/27/17 04/03/23 History cyclobenzaprine 10 mg tablet 10 mg PO QHS PRN LEG CRAMPS 05/27/17 04/02/23 History insulin degludec 200 unit/mL (3 56 unit subcut QHS DIABETES 09/21/20 Unknown History mL) subcutaneous pen (Tresiba FlexTouch U-200 insulin) acetaminophen 500 mg tablet 1,000 mg (2 x 500 mg) PO Q6H PRN 04/21/23 Unknown Rx PRN Pain Score 1-10 #0 tabs magnesium chloride 64 mg 128 mg (2 x 64 mg) PO DAILY 30 04/21/23 Unknown Rx (magnesium chloride) days #60 tabs tablet,delayed release (Mag 64) oxybutynin chloride 15 mg 15 mg PO BID 05/01/23 Unknown History tablet,extended release 24 hr apixaban 5 mg tablet (Eliquis) 5 mg PO BID blood thinner #180 tabs 05/04/23 Unknown Rx metoprolol tartrate 25 mg tablet 25 mg PO BID heart/pulse #180 tabs 05/04/23 Unknown Rx famotidine 20 mg tablet 20 mg PO BID #10 TABLETS 05/08/23 Unknown Rx methimazole 10 mg tablet 15 mg (1.5 x 10 mg) PO DAILY 05/08/23 Unknown Rx thyroid 30 days #45 tabs Allergy/AdvReac Type Severity Reaction Status Date / Time adhesive tape Allergy Other Verified 12/24/23 16:44 apple Allergy Swelling Verified 12/24/23 16:44 cephalexin monohydrate (From Allergy Other Verified 12/24/23 16:44 Keflex) ciprofloxacin (From Cipro) Allergy Hives Verified 12/24/23 16:44 ciprofloxacin HCl (From Allergy Hives Verified 12/24/23 16:44 Cipro) citalopram hydrobromide Allergy Unknown Verified 12/24/23 16:44 (From Celexa) clarithromycin (From Biaxin) Allergy Unknown Verified 12/24/23 16:44 codeine Allergy Unknown Verified 12/24/23 16:44 diltiazem HCl (From Cardizem) Allergy Unknown Verified 12/24/23 16:44 fluoxetine HCl (From Prozac) Allergy Unknown Verified 12/24/23 16:44 fluticasone (From Advair Allergy Swelling Verified 12/24/23 16:44 Diskus) fluticasone propionate (From Allergy Other Verified 12/24/23 16:44 Advair Diskus) hydrochlorothiazide (From Allergy Unknown Verified 12/24/23 16:44 Hyzaar) ipratropium bromide (From Allergy Unknown Verified 12/24/23 16:44 Atrovent) labetalol Allergy Rash Verified 12/24/23 16:44 lamotrigine (From Lamictal) Allergy Unknown Verified 12/24/23 16:44 latex Allergy Unknown Verified 12/24/23 16:44 liraglutide (From Victoza) Allergy Unknown Verified 12/24/23 16:44 losartan potassium (From Allergy Unknown Verified 12/24/23 16:44 Hyzaar) meloxicam (From Mobic) Allergy Other Verified 12/24/23 16:44 nitrofurantoin (From Allergy Hives Verified 12/24/23 16:44 Macrobid) nitrofurantoin Allergy Hives Verified 12/24/23 16:44 macrocrystalline (From Macrobid) Penicillins Allergy Rash Verified 12/24/23 16:44 pineapple Allergy Other Verified 12/24/23 16:44 quetiapine fumarate (From Allergy Unknown Verified 12/24/23 16:44 Seroquel) salmeterol (From Advair Allergy Swelling Verified 12/24/23 16:44 Diskus) salmeterol xinafoate (From Allergy Other Verified 12/24/23 16:44 Advair Diskus) sertraline HCl (From Zoloft) Allergy Unknown Verified 12/24/23 16:44 simvastatin (From Zocor) Allergy Unknown Verified 12/24/23 16:44 topiramate (From Topamax) Allergy Unknown Verified 12/24/23 16:44 verapamil HCl (From Allergy Unknown Verified 12/24/23 16:44 Covera-HS) zonisamide (From Zonegran) Allergy Shortness Verified 12/24/23 16:44 of breath acetaminophen (From Lortab) AdvReac Nausea Verified 12/24/23 16:44 hydrocodone bitartrate (From AdvReac Nausea Verified 12/24/23 16:44 Lortab) ramipril (From Altace) AdvReac Laryngospas Verified 12/24/23 16:44 ms sulfamethoxazole (From AdvReac Unknown Verified 12/24/23 16:44 Septra) trimethoprim (From Septra) AdvReac Unknown Verified 12/24/23 16:44 Surgical History History of bladder repair surgery History of carpal tunnel release History of cholecystectomy History of hysterectomy Social History household members: none housing: apartment current occupational status: disabled current occupation: Patient is disabled due to Parkinson's disease Smoking Status: Never smoker alcohol intake: never substance use type: does not use ROS ROS ED Constitutional Constitutional ED: Denies chills or fever(s) Eyes Eyes: Denies change in vision or diplopia ENT ENT ED: Reports as per HPI and sore throat; Denies rhinorrhea Cardiovascular Cardiovascular: Denies chest pain or palpitations Respiratory/Chest Respiratory/Chest: Denies cough or dyspnea Gastrointestinal Gastrointestinal: Denies abdominal pain, diarrhea, nausea or vomiting Genitourinary Genitourinary ED: Denies dysuria or hematuria Musculoskeletal Musculoskeletal: Denies back pain or neck pain Integumentary Denies abscess or rash Neurologic Neurologic: Reports tremor(s); Denies headache(s), paresthesias or weakness Psychiatric Psychiatric: Denies anxiety or suicidal thoughts EXAM Physical Exam Const Vital Signs: 12/24/23 16:40 12/24/23 17:22 12/24/23 17:23 Temperature 98 F Temperature Source Oral Pulse Rate 77 Respiratory Rate 16 Respiratory Effort Normal Non-Labored Normal Non-Labored Blood Pressure 122/82 H Blood Pressure Mean 95 Pulse Ox 98 Oxygen Delivery Method Room Air 12/24/23 18:40 Temperature Temperature Source Pulse Rate 68 Respiratory Rate 14 Respiratory Effort Blood Pressure 150/105 H Blood Pressure Mean 120 Pulse Ox 98 Oxygen Delivery Method Room Air Positive well nourished, well developed and obese General Appearance ED: well developed and NAD Nutritional Appearance: obese HEENT Reports moist mucous membranes normocephalic and atraumatic Eyes PERRL and EOMs intact bilaterally Neck full ROM and supple Resp normal respiratory effort and clear to auscultation bilaterally Cardio regular rate, regular rhythm and no murmurs GI non-tender and non-distended Auscultation: normoactive bowel sounds Palpation: soft Back/Spine no CVA tenderness General Back: other FROM Extremity normal to inspection General Extremety ED: Negative for edema, pulses abnormal or tenderness General Extremity: Negative for edema or pulses abnormal Neuro oriented x3, CN's II-XII intact bilaterally and no sensory deficits noted Neuro Narrative: Resting tremor Sensorium / Orientation: awake and alert Motor Exam: strength 5/5 throughout Psych mental status grossly normal Skin no rashes or lesions noted and no wounds MDM MDM MDM Narrative Medical decision making narrative: Patient has a benign exam. She is able to drink water here without any difficulty. I am advising her to stay on a soft diet avoid meats, she is on omeprazole 20 mg and having her double that for the next week and follow-up with her doctor. Discharge Plan Triage Chief Complaint: Foreign Body Other Complaint: Fall ED Provider: Luis Mcdonald Dx/Rx/DC Orders Clinical Impression: Globus sensation Instructions: ED Soft Diet Prescriptions: No Action metoprolol tartrate 25 mg tablet 25 mg PO BID Qty: 180 3RF Eliquis 5 mg tablet 5 mg PO BID Qty: 180 3RF oxybutynin chloride 15 mg tablet extended release 24hr 15 mg PO BID clonidine HCl 0.3 MG tablet 1 tab PO BID amlodipine 10 MG tablet 1 tab PO DAILY cyclobenzaprine 10 MG tablet 10 mg PO QHS PRN (Reason: LEG CRAMPS) insulin degludec [Tresiba FlexTouch U-200] 200 unit/mL (3 mL) Insulin Pen 56 unit SUBCUT QHS Patient Comments: 03/31 has not taken for 3 days d/t hypoglycemia/anorexia acetaminophen 500 mg Tablet 1,000 mg PO Q6H PRN PRN (Reason: Pain Score 1-10) Qty: 0 0RF Mag 64 64 mg Tablet,Delayed Release (Dr/Ec) 128 mg PO DAILY 30 Days Qty: 60 0RF famotidine [famotidine] 20 mg tablet 20 mg PO BID Qty: 10 0RF methimazole 10 mg tablet 15 mg PO DAILY 30 Days Qty: 45 1RF Primary Care Provider: CLEMENCIA MILLER Referrals: CLEMENCIA MILLER [Other] - As soon as possible Activity Restrictions/Additional Instructions: Instead of omeprazole 20 mg, double it and take 40 mg daily for the next week. If you are doing okay you can go back down to the 20 mg daily after that. Do not change any of your other medications. Print Language: Finnish Disposition Disposition: Home, Self Care
[2023-12-24 19:09] VITALS: BP 157/72; PULSE 64; RESP 16; TEMP 36.7; O2SAT 97
== END 2023-12-24 19:16 | disposition home or self-care (01) ==
PROVIDERS: Emergency Provider Emergency Medicine; Visit Provider Emergency Medicine
DX: R09.89 Other specified symptoms and signs involving the circulatory and respiratory systems (principal); E11.9 Type 2 diabetes mellitus without complications; Z79.4 Long term (current) use of insulin; E78.5 Hyperlipidemia, unspecified; Z90.710 Acquired absence of both cervix and uterus; I10 Essential (primary) hypertension; Z79.899 Other long term (current) drug therapy; Z90.49 Acquired absence of other specified parts of digestive tract
CPT/HCPCS: 99285

== ENCOUNTER 2024-07-29 09:28 | Emergency (ER) | payer MEDICARE, MEDICAID, SELFPAY ==
[2024-07-29] VITALS (7 sets, daily range): BP systolic 145–165; BP diastolic 68–108; PULSE 73–94; RESP 16–20; TEMP 36.4–36.9; O2SAT 97–100; BMI 41.4
--- NOTE | 2024-07-29 09:37 | EKG12_ITS ---
Test Reason : Blood Pressure : */* mmHG Vent. Rate : 67 BPM Atrial Rate : * BPM P-R Int : * ms QRS Dur : 70 ms QT Int : 402 ms P-R-T Axes : * -7 37 degrees QTcB Int : 424 ms Poor tracing Probably Normal Sinus Rhythm Cannot rule out old inferior wall AK Abnormal ECG Confirmed by Earl Hannah ([id number]), editorial intern ACOSTA JOSHUA ([id number]) on 08/01/2024 10:47:39 AM Referred By: Confirmed By: Earl Hannah
--- NOTE | 2024-07-29 09:42 | EDS_ITS ---
HPI History of Present Illness Chief Complaint: Back Informant: patient Narrative Narrative: 69-year-old female has been feeling weak for the past 5 or 6 days, she had a minor fall couple days ago, she also states that her blood pressure has been running low in the high 80s for the last couple days. She lives alone has severe Parkinson's, she has an aide that comes to help her. In the last day or 2 she has had urinary symptoms and low back pain. Thinks maybe she has a bladder infection. She denies any hematuria, lateralizing pain in her low back, vomiting, or fevers. She denies any cough or dyspnea. She denies any weakness or numbness focally in her legs, or pain radiating down her legs. She denies injuring herself when she fell the other day, including her back and her head. [facility] Medical History Paroxysmal atrial flutter Thyrotoxicosis due to Graves' disease Anxiety Depression Diabetes Non-smoker Asthma History of left heart catheterization Hyperlipidemia Hypertension Tremor Home Medications ?Medication ?Instructions ?Recorded ?Last Taken ?Type amlodipine 10 mg tablet 1 tab PO DAILY BLOOD PRESSUR E 05/27/17 04/03/23 History clonidine HCl 0.3 mg tablet 1 tab PO BID BLOOD PRESSUR E 05/27/17 04/03/23 History cyclobenzaprine 10 mg tablet 10 mg PO QHS PRN LEG CRAM PS 05/27/17 04/02/23 History insulin degludec 200 unit/mL (3 56 unit subcut QHS MONALISA BETES 09/21/20 Unknown History mL) subcutaneous pen (Tresiba FlexTouch U-200 insulin) acetaminophen 500 mg tablet 1,000 mg (2 x 500 mg) PO Q 6H PRN 04/21/23 Unknown Rx PRN Pain Score 1-10 #0 tabs magnesium chloride 64 mg 128 mg (2 x 64 mg) PO DAILY 30 04/21/23 Unknown Rx (magnesium chloride) days #60 tabs tablet,delayed release (Mag 64) oxybutynin chloride 15 mg 15 mg PO BID 05/01/23 Unknow n History tablet,extended release 24 hr apixaban 5 mg tablet (Eliquis) 5 mg PO BID blood thinn er #180 tabs 05/04/23 Unknown Rx metoprolol tartrate 25 mg tablet 25 mg PO BID heart/pu lse #180 tabs 05/04/23 Unknown Rx famotidine 20 mg tablet 20 mg PO BID #10 TABLETS 10/23 Unknown Rx methimazole 10 mg tablet 15 mg (1.5 x 10 mg) PO DAILY 05/08/23 Unknown Rx thyroid 30 days #45 tabs Allergy/AdvReac Type Severity Reaction Status Date / Time adhesive tape Allergy Other Verified 12/24/23 16:44 apple Allergy Swelling Verified 12/24/23 16:44 cephalexin monohydrate (From Allergy Other Verified 12/24/23 16:44 Keflex) ciprofloxacin (From Cipro) Allergy Hives Verified 12/24/23 16:44 ciprofloxacin HCl (From Allergy Hives Verified 12/24/23 16:44 Cipro) citalopram hydrobromide Allergy Unknown Verified 12/24/23 16:44 (From Celexa) clarithromycin (From Biaxin) Allergy Unknown Verified 12/24/23 16:44 codeine Allergy Unknown Verified 12/24/23 16:44 diltiazem HCl (From Cardizem) Allergy Unknown Verified 12/24/23 16:44 fluoxetine HCl (From Prozac) Allergy Unknown Verified 12/24/23 16:44 fluticasone (From Advair Allergy Swelling Verified 12/24/23 16:44 Diskus) fluticasone propionate (From Allergy Other Verified 12/24/23 16:44 Advair Diskus) hydrochlorothiazide (From Allergy Unknown Verified 12/24/23 16:44 Hyzaar) ipratropium bromide (From Allergy Unknown Verified 12/24/23 16:44 Atrovent) labetalol Allergy Rash Verified 12/24/23 16:44 lamotrigine (From Lamictal) Allergy Unknown Verified 12/24/23 16:44 latex Allergy Unknown Verified 12/24/23 16:44 liraglutide (From Victoza) Allergy Unknown Verified 12/24/23 16:44 losartan potassium (From Allergy Unknown Verified 12/24/23 16:44 Hyzaar) meloxicam (From Mobic) Allergy Other Verified 12/24/23 16:44 nitrofurantoin (From Allergy Hives Verified 12/24/23 16:44 Macrobid) nitrofurantoin Allergy Hives Verified 12/24/23 16:44 macrocrystalline (From Macrobid) Penicillins Allergy Rash Verified 12/24/23 16:44 pineapple Allergy Other Verified 12/24/23 16:44 quetiapine fumarate (From Allergy Unknown Verified 12/24/23 16:44 Seroquel) salmeterol (From Advair Allergy Swelling Verified 12/24/23 16:44 Diskus) salmeterol xinafoate (From Allergy Other Verified 12/24/23 16:44 Advair Diskus) sertraline HCl (From Zoloft) Allergy Unknown Verified 12/24/23 16:44 simvastatin (From Zocor) Allergy Unknown Verified 12/24/23 16:44 topiramate (From Topamax) Allergy Unknown Verified 12/24/23 16:44 verapamil HCl (From Allergy Unknown Verified 12/24/23 16:44 Covera-HS) zonisamide (From Zonegran) Allergy Shortness Verified 12/24/23 16:44 of breath acetaminophen (From Lortab) AdvReac Nausea Verified 12/24/23 16:44 hydrocodone bitartrate (From AdvReac Nausea Verified 12/24/23 16:44 Lortab) ramipril (From Altace) AdvReac Laryngospas Verified 12/24/23 16:44 ms sulfamethoxazole (From AdvReac Unknown Verified 12/24/23 16:44 Septra) trimethoprim (From Septra) AdvReac Unknown Verified 12/24/23 16:44 Surgical History History of bladder repair surgery History of carpal tunnel release History of cholecystectomy History of hysterectomy Social History household members: none housing: apartment current occupational status: disabled current occupation: Patient is disabled due to Parkinson's disease Smoking Status: Never smoker alcohol intake: never substance use type: does not use ROS ROS ED Constitutional Constitutional ED: Reports fatigue and weakness; Denies chills or fever(s) Eyes Eyes: Denies change in vision or diplopia ENT ENT ED: Denies rhinorrhea or sore throat Cardiovascular Cardiovascular: Denies chest pain or palpitations Respiratory/Chest Respiratory/Chest: Denies cough or dyspnea Gastrointestinal Gastrointestinal: Reports other Details: Suprapubic pressure no other abdominal pain ; Denies diarrhea, nausea or vomiting Genitourinary Genitourinary ED: Reports dysuria and urinary frequency; Denies hematuria Musculoskeletal Musculoskeletal: Reports back pain; Denies neck pain Integumentary Denies abscess or rash Neurologic Neurologic: Reports tremor(s); Denies headache(s), paresthesias or weakness Psychiatric Psychiatric: Denies suicidal thoughts EXAM Physical Exam Const Vital Signs: 07/29/24 09:29 07/29/24 10:32 07/29/24 11:00 Temperature 97.6 F L 98 F 98 F Temperature Source Oral Oral Oral Pulse Rate 78 75 77 Respiratory Rate 16 16 16 Blood Pressure 148/108 H 165/76 H 164/82 H Blood Pressure Mean 121 105 109 Pulse Ox 99 98 98 Oxygen Delivery Method Room Air Room Air Room Air 07/29/24 12:00 07/29/24 13:00 Temperature 98 F 98 F Temperature Source Oral Oral Pulse Rate 77 73 Respiratory Rate 16 18 Blood Pressure 165/76 H 151/71 H Blood Pressure Mean 105 97 Pulse Ox 98 98 Oxygen Delivery Method Room Air Room Air Positive well nourished, well developed and obese General Appearance ED: well developed and NAD Nutritional Appearance: obese HEENT Reports moist mucous membranes normocephalic and atraumatic Eyes PERRL and EOMs intact bilaterally Neck full ROM and supple Resp normal respiratory effort and clear to auscultation bilaterally Cardio regular rate, regular rhythm and no murmurs GI non-tender and non-distended Auscultation: normoactive bowel sounds Palpation: soft Back/Spine no CVA tenderness General Back: other FROM Extremity normal to inspection General Extremety ED: Negative for edema, pulses abnormal or tenderness General Extremity: Negative for edema or pulses abnormal Neuro oriented x3, CN's II-XII intact bilaterally and no sensory deficits noted Neuro Narrative: Significant resting tremor both upper extremities Sensorium / Orientation: awake and alert Motor Exam: strength 5/5 throughout Psych Mood & Affect: anxious Skin no rashes or lesions noted and no wounds MDM MDM MDM Narrative Medical decision making narrative: Patient suggesting possible symptoms of a UTI and feeling generally weak. For work her up for sepsis, her lactate is normal, she does not have a leukocytosis or leftward shift, and her cath urine shows no signs of acute infection. Therefore given the hypotension she described having at home over the last couple days and her low back pain, I thought reasonable to obtain CT of the abdomen/pelvis with IV contrast, to rule out AAA/rupture, retroperitoneal process, or an intra-abdominal abscess/infection. I reviewed the images of this and the report it was unremarkable. Radiology did note that she has quite a bit of stool in the colon. Patient states she last had a bowel movement about a week ago, and with her Parkinson's and relative immobility she commonly goes 2 weeks for a month without a bowel movement. She was given fentanyl for her back pain earlier and now she states it is severe and she wants more narcotics but I do not recommend it. If this is constipation is giving her back pain, could make that worse, she understands and is amenable to a shot of a muscle relaxer before going home. She is comfortable going home and wants to do so anyway, she does not have any medical reasons for acute admission to hospital at this time. She is comfortable following up after the weekend with her doctor. Lab Data Attestation: I reviewed the patient's lab results. Labs: Laboratory Results - last 24 hr 07/29/24 07/29/24 10:10 11:55 WBC 9.5 RBC 5.03 Hgb 13.4 Hct 41.8 MCV 83.1 MCH 26.6 L MCHC 32.1 RDW Std Deviation 44.8 H RDW Coeff of Rico 14.8 H Plt Count 230 MPV 12.1 H Immature Gran % (Auto) 0.500 Neut % (Auto) 69.8 Lymph % (Auto) 19.5 Wells % (Auto) 7.1 Eos % (Auto) 2.5 Baso % (Auto) 0.6 Absolute Neuts (auto) 6.6 Absolute Lymphs (auto) 1.85 Nucleated RBC % 0 Sodium 139 Potassium 4.9 Chloride 103 Carbon Dioxide 25.0 Anion Gap 11 BUN 17 Creatinine 1.00 Estim Creat Clear Calc 61.31 Est GFR (MDRD) Non-Af 62 BUN/Creatinine Ratio 17.2 Glucose 110 H Lactic Acid 1.2 Calcium 9.8 Total Bilirubin 0.30 AST 20 ALT 12 Alkaline Phosphatase 109 H Total Protein 7.4 Albumin 4.0 Globulin 3.4 Albumin/Globulin Ratio 1.2 Urine Color Straw Urine Clarity Clear Urine pH 7.0 Ur Specific [place] 1.010 Urine Protein 30 H Urine Glucose (UA) Normal Urine Ketones Negative Urine Occult Blood 10 H Urine Nitrite Negative Urine Bilirubin Negative Urine Urobilinogen Normal Ur Leukocyte Esterase Negative Urine RBC 0-5 SEEN Urine WBC 0-5 SEEN Ur Squamous Epith Cells 0-5 SEEN Urine Bacteria 1+ Urine Mucus 0 SEEN Radiography Diagnostic Testing: Clinical Impression(s) from Imaging Studies Chest X-Ray 07/29/24 10:16 IMPRESSION: No acute cardiopulmonary process. Reading Location: [facility] Abdomen/Pelvis CT 07/29/24 12:50 IMPRESSION: 1. Small anterior ventral hernia of the lower mid abdomen containing fat. No bowel obstruction. 2. Small esophageal hiatal hernia. 3. Hepatomegaly with fatty infiltration. 4. Fecal retention in the colon consistent with constipation. Reading Location: [facility] Rhythm Strip Rhythm Strip: Sinus Rhythm Rate: 67 Ectopy: None EKG Initial EKG: Attestation: I personally reviewed and interpreted this EKG as follows: Interpretation: Sinus Rhythm and No Acute Injury Pattern Prior EKG tracings: available for review Prior: Unchanged Discharge Plan Triage Chief Complaint: Back ED Provider: Luis Mcdonald Dx/Rx/DC Orders Clinical Impression: Generalized weakness, Parkinson disease, Acute low back pain, Constipation, Anticoagulated on Eliquis Instructions: ED Back Pain (Acute or Chronic), ED Weakness Uncertain Cause Prescriptions: No Action metoprolol tartrate 25 mg tablet 25 mg PO BID Qty: 180 3RF Eliquis 5 mg tablet 5 mg PO BID Qty: 180 3RF oxybutynin chloride 15 mg tablet extended release 24hr 15 mg PO BID clonidine HCl 0.3 MG tablet 1 tab PO BID amlodipine 10 MG tablet 1 tab PO DAILY cyclobenzaprine 10 MG tablet 10 mg PO QHS PRN (Reason: LEG CRAMPS) insulin degludec [Tresiba FlexTouch U-200] 200 unit/mL (3 mL) Insulin Pen 56 unit SUBCUT QHS Patient Comments: 03/31 has not taken for 3 days d/t hypoglycemia/anorexia acetaminophen 500 mg Tablet 1,000 mg PO Q6H PRN PRN (Reason: Pain Score 1-10) Qty: 0 0RF Mag 64 64 mg Tablet,Delayed Release (Dr/Ec) 128 mg PO DAILY 30 Days Qty: 60 0RF famotidine [famotidine] 20 mg tablet 20 mg PO BID Qty: 10 0RF methimazole 10 mg tablet 15 mg PO DAILY 30 Days Qty: 45 1RF Primary Care Provider: CLEMENCIA MILLER Referrals: CLEMENCIA MILLER [Other] - As soon as possible Print Language: Croatian Disposition Disposition: Home, Self Care
--- NOTE | 2024-07-29 10:16 | RAD_ITS ---
EXAM: XR Chest, 1 View CLINICAL INDICATION: WEAKNESS TECHNIQUE: Frontal view of the chest. COMPARISON: No relevant prior studies available. FINDINGS: LUNGS AND PLEURAL SPACES: Unremarkable. No consolidation. No pneumothorax. HEART: Unremarkable. No cardiomegaly. MEDIASTINUM: Unremarkable. Normal mediastinal contour. BONES/JOINTS: Unremarkable. No acute fracture. RAD/Chest 1 View (Portable) IMPRESSION: No acute cardiopulmonary process. Reading Location[facility]
[2024-07-29 10:24] LABS: Absolute Lymphocyte Count 1.85 X10^3/uL (0.83-4.51); Absolute Neutrophil Count 6.6 X10^3/uL (2.0-7.7); Basophil# 0.06 X10^3/uL; Basophil% 0.6 % (0-1); Eosinophil# 0.24 X10^3/uL; Eosinophils% 2.5 % (0-5); Hematocrit 41.8 % (37-47); Hemoglobin 13.4 g/dL (12.0-15.0); Lymphocyte # 1.85 X10^3/ul (0.83-4.51); Lymphocyte % 19.5 % (19-41); Mean Corp Hgb Conc 32.1 g/dL (32-36); Mean Corpuscular Hgb 26.6 pg (27.0-32.0); Mean Corpuscular Volume 83.1 fL (81-99); Mean Platelet Vol. 12.1 fl (6.2-12.0); Monocyte# 0.67 X10^3/uL; Monocyte% 7.1 % (0-10); NRBC Flagged by Analyzer 0 % (0-5); Neutrophil % 69.8 % (47-70); Platelet Count 230 K/mm3 (150-450); RBC Distribution Width CV 14.8 % (11.6-14.6); RBC Distribution Width SD 44.8 fl (35.1-43.9); Red Blood Count 5.03 M/mm3 (4.2-5.4); White Blood Count 9.5 K/mm3 (4.4-11.0)
[2024-07-29 11:17] LABS: ALB/GLOB Ratio 1.2 RATIO (0.9-2.4); AST(SGOT) 20 U/L (<=31); Alanine Aminotransfer ALT/SGPT 12 U/L (<=34); Alkaline Phosphatase 109 U/L (35-104); Anion Gap 11 (5-15); BUN 17 mg/dL (4-19); BUN/Creat Ratio 17.2 RATIO (10-20); Calcium,Total 9.8 mg/dL (7.6-11.0); Chloride 103 mmol/L (98-108); EST Glomerular Filtration Rate 62 (>60); Estimated Creatinine Clearance 61.31 ml/min (50-250); Globulin 3.4 g/dL (2.2-4.2); Glucose 110 mg/dL (70-99); Lactic Acid 1.2 mmol/L (0.0-2.0); Potassium 4.9 mmol/L (3.3-5.1); Protein, Total 7.4 g/dL (5.9-8.4); Sodium Level 139 mmol/L (133-145)
[2024-07-29] MEDS: fentaNYL 100 MCG/2 ML Ampul 50 MCG IV (11:39)
[2024-07-29 12:04] LABS: Mucous, Urine 0 SEEN /hpf (<or=2+)
[2024-07-29 12:06] LABS: Color, Urine Straw (Yellow); Glucose, Dipstick Normal (Normal); Ketone-Dipstick Negative (Negative); Leukocyte Esterase-Dipstick Negative /ul (Negative); Nitrite-Dipstick Negative (Negative); Occult Blood-Urine 10 /ul (Negative); Protein-Dipstick 30 mg/dl (Negative); Urine Bilirubin Dipstick Negative (Negative); Urine Clarity Clear (Clear); Urine Urobilinogen Normal (Normal)
--- NOTE | 2024-07-29 12:50 | CT_ITS ---
EXAM: CT Abdomen and Pelvis With Intravenous Contrast CLINICAL INDICATION: HYPOTENSION, LOW BACK PAIN TECHNIQUE: Axial computed tomography images of the abdomen and pelvis with intravenous contrast. This CT exam was performed using one or more of the following dose reduction techniques: automated exposure control, adjustment of the mA and/or kV according to patient size, and/or use of iterative reconstruction technique. COMPARISON: No relevant prior studies available. FINDINGS: LUNG BASES: Unremarkable. No mass. No consolidation. MEDIASTINUM: Small esophageal hiatal hernia. ABDOMEN: LIVER: Hepatomegaly with fatty infiltration. GALLBLADDER AND BILE DUCTS: Gallbladder is surgically absent. No ductal dilation. PANCREAS: Unremarkable. No mass. No ductal dilation. SPLEEN: Unremarkable. No splenomegaly. ADRENALS: Unremarkable. No mass. KIDNEYS AND URETERS: Unremarkable. No solid mass. No hydronephrosis. STOMACH AND BOWEL: Small anterior ventral hernia of the lower mid abdomen containing fat. No bowel obstruction. Fecal retention in the colon consistent with constipation. No mucosal thickening. PELVIS: APPENDIX: No findings to suggest acute appendicitis. BLADDER: Unremarkable. No mass. REPRODUCTIVE: Unremarkable as visualized. ABDOMEN and PELVIS: INTRAPERITONEAL SPACE: Unremarkable. No free air. No significant fluid collection. BONES/JOINTS: No acute fracture. No dislocation. SOFT TISSUES: See above. VASCULATURE: Scattered calcified atherosclerotic disease of aorta. No abdominal aortic aneurysm. LYMPH NODES: Unremarkable. No enlarged lymph nodes. CT/Abdomen/Pelvis W IV Cont ONLY IMPRESSION: 1. Small anterior ventral hernia of the lower mid abdomen containing fat. No bowel obstruction. 2. Small esophageal hiatal hernia. 3. Hepatomegaly with fatty infiltration. 4. Fecal retention in the colon consistent with constipation. Reading Location: [facility]
[2024-07-29 12:55] LABS: Red Blood Cells-Urine 0-5 SEEN /hpf (0-5); Squamous Epithelial Cells - UA 0-5 SEEN /hpf (5-10)
[2024-07-29 12:57] LABS: Bacteria 1+ /hpf (None Seen); White Blood Cells 0-5 SEEN /hpf (0-5)
[2024-07-29] MEDS: Orphenadrine 60 MG/2 ML Ampul IV (14:57)
--- NOTE | 2024-07-29 17:00 | CM.ED ---
Social Work SW met with patient, introduced self and role with [facility]. Patient agreeable to visit. Patient stated that she has an aide that comes to the house 5 days a week from 10-2 to help with bathing, dressing, house cleaning and cooking. Patient states her aide is very reliable and almost always makes it to work. Patient states she is also receiving [employer] weekly and her son, who lives a few blocks down from her, goes to the store when she needs anything. Patient has a physician who comes to the home from [facility]. Patient states she also has a trapeze to help with bed mobility and an electric wheelchair. Patients daughter in law is a nurse and will also come to the home and help patient as needed. Patient states she knows it is just a matter of time before she will need to be in a SNF but for now she is utilizing all the resources she has available. Patient states no further needs at this time. Coni Caldera, [employer] TABLE ASSOCIATE, [employer]
== END 2024-07-29 17:46 | disposition home or self-care (01) ==
PROVIDERS: Emergency Provider Emergency Medicine; Visit Provider Emergency Medicine
DX: M54.50 Low back pain, unspecified (principal); G20.A1 Parkinson's disease without dyskinesia, without mention of fluctuations; I48.92 Unspecified atrial flutter; E11.9 Type 2 diabetes mellitus without complications; Z79.4 Long term (current) use of insulin; K59.00 Constipation, unspecified; E78.5 Hyperlipidemia, unspecified; I10 Essential (primary) hypertension; Z79.01 Long term (current) use of anticoagulants; R53.1 Weakness; W19.XXXA Unspecified fall, initial encounter; Z79.899 Other long term (current) drug therapy; Z90.49 Acquired absence of other specified parts of digestive tract; Z90.710 Acquired absence of both cervix and uterus
CPT/HCPCS: 71045; 74177; 80053; 81001; 83605; 85025; 93005; 96374; 96375; 99285; P9612; Q9967; A4216

== ENCOUNTER 2024-08-15 12:37 | Emergency (ER) | payer MEDICARE, MEDICAID, SELFPAY ==
[2024-08-15 12:37] VITALS: BP 150/77; PULSE 88; RESP 18; TEMP 36.8; O2SAT 96; BMI 41.3
[2024-08-15 13:10] VITALS: O2SAT 98
--- NOTE | 2024-08-15 13:20 | RAD_ITS ---
PROCEDURE: RIBS UNI MIN 3 V w/PA CHEST 08/15/2024 REASON FOR EXAM: LEFT-SIDED RIB PAIN TECHNIQUE: RIBS UNI MIN 3V W/PA CHEST FINDINGS: Findings: Other: Reading [facility]
--- NOTE | 2024-08-15 13:57 | ED.VIS.FALL ---
HPI HPI - Fall History of Present Illness Chief Complaint: Fall Narrative Narrative: Chief complaint and HPI: Mechanical fall with left rib pain. 69-year-old female with past medical history of Parkinson's, HTN, HLD, DM2, proximal atrial fibrillation on anticoagulation presents for evaluation of mechanical fall with left rib pain. Patient states she uses a rollator walker as well as a electric wheelchair in her house. She states that she had just had a bowel movement when she states she tried to get into the shower to clean herself off. She states she lost her balance getting into the shower in which she fell onto her bilateral knees. She states she also hit her left lateral chest on her shower chair. She states that she could not get off her knees secondary to weakness and therefore EMS was called. Patient denies hitting her head or neck. States she specifically landed on her bilateral knees. She denies any lightheadedness, vision changes, syncope, fever, chills, shortness of breath, chest pain abdominal pain, nausea, vomiting, dysuria, diarrhea, constipation. She states that it was purely a mechanical fall. States that she is only here because she is having left lateral rib pain and wants to make sure she did not break her rib. Review of systems: See HPI Medications: As listed on the chart Allergies: As listed on the chart PFSH: Per chart Vital signs: As listed on the chart. Reviewed. Physical exam: Gen: A&O x4, NAD Head: Normocephalic, atraumatic Eyes: No sclera icterus, conjunctiva clear, PERRL, EOMI ENT: TMs clear BL, moist mucous membranes, face atraumatic without tenderness Neck: Trachea midline, No JVD, Nontender, full range of motion CV: RRR, no murmurs, mild tenderness to palpation of the left lateral ribs approximately 5/6 rib. No swelling or hematoma. No crepitus. 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' disease Anxiety Depression Diabetes Non-smoker Asthma History of left heart catheterization Hyperlipidemia Hypertension Tremor Home Medications ?Medication ?Instructions ?Recorded ?Last Taken ?Type amlodipine 10 mg tablet 1 tab PO DAILY BLOOD PRESSURE 05/27/17 04/03/23 History clonidine HCl 0.3 mg tablet 1 tab PO BID BLOOD PRESSURE 05/27/17 04/03/23 History cyclobenzaprine 10 mg tablet 10 mg PO QHS PRN LEG CRAMPS 05/27/17 04/02/23 History insulin degludec 200 unit/mL (3 56 unit subcut QHS DIABETES 09/21/20 Unknown History mL) subcutaneous pen (Tresiba FlexTouch U-200 insulin) acetaminophen 500 mg tablet 1,000 mg (2 x 500 mg) PO Q6H PRN 04/21/23 Unknown Rx PRN Pain Score 1-10 #0 tabs magnesium chloride 64 mg 128 mg (2 x 64 mg) PO DAILY 30 04/21/23 Unknown Rx (magnesium chloride) days #60 tabs tablet,delayed release (Mag 64) oxybutynin chloride 15 mg 15 mg PO BID 05/01/23 Unknown History tablet,extended release 24 hr apixaban 5 mg tablet (Eliquis) 5 mg PO BID blood thinner #180 tabs 05/04/23 Unknown Rx metoprolol tartrate 25 mg tablet 25 mg PO BID heart/pulse #180 tabs 05/04/23 Unknown Rx famotidine 20 mg tablet 20 mg PO BID #10 TABLETS 05/08/23 Unknown Rx methimazole 10 mg tablet 15 mg (1.5 x 10 mg) PO DAILY 05/08/23 Unknown Rx thyroid 30 days #45 tabs Allergy/AdvReac Type Severity Reaction Status Date / Time adhesive tape Allergy Other Verified 08/15/24 12:41 apple Allergy Swelling Verified 08/15/24 12:41 cephalexin monohydrate (From Allergy Other Verified 08/15/24 12:41 Keflex) ciprofloxacin (From Cipro) Allergy Hives Verified 08/15/24 12:41 ciprofloxacin HCl (From Allergy Hives Verified 08/15/24 12:41 Cipro) citalopram hydrobromide Allergy Unknown Verified 08/15/24 12:41 (From Celexa) clarithromycin (From Biaxin) Allergy Unknown Verified 08/15/24 12:41 codeine Allergy Unknown Verified 08/15/24 12:41 diltiazem HCl (From Cardizem) Allergy Unknown Verified 08/15/24 12:41 fluoxetine HCl (From Prozac) Allergy Unknown Verified 08/15/24 12:41 fluticasone (From Advair Allergy Swelling Verified 08/15/24 12:41 Diskus) fluticasone propionate (From Allergy Other Verified 08/15/24 12:41 Advair Diskus) hydrochlorothiazide (From Allergy Unknown Verified 08/15/24 12:41 Hyzaar) ipratropium bromide (From Allergy Unknown Verified 08/15/24 12:41 Atrovent) labetalol Allergy Rash Verified 08/15/24 12:41 lamotrigine (From Lamictal) Allergy Unknown Verified 08/15/24 12:41 latex Allergy Unknown Verified 08/15/24 12:41 liraglutide (From Victoza) Allergy Unknown Verified 08/15/24 12:41 losartan potassium (From Allergy Unknown Verified 08/15/24 12:41 Hyzaar) meloxicam (From Mobic) Allergy Other Verified 08/15/24 12:41 nitrofurantoin (From Allergy Hives Verified 08/15/24 12:41 Macrobid) nitrofurantoin Allergy Hives Verified 08/15/24 12:41 macrocrystalline (From Macrobid) Penicillins Allergy Rash Verified 08/15/24 12:41 pineapple Allergy Other Verified 08/15/24 12:41 quetiapine fumarate (From Allergy Unknown Verified 08/15/24 12:41 Seroquel) salmeterol (From Advair Allergy Swelling Verified 08/15/24 12:41 Diskus) salmeterol xinafoate (From Allergy Other Verified 08/15/24 12:41 Advair Diskus) sertraline HCl (From Zoloft) Allergy Unknown Verified 08/15/24 12:41 simvastatin (From Zocor) Allergy Unknown Verified 08/15/24 12:41 topiramate (From Topamax) Allergy Unknown Verified 08/15/24 12:41 verapamil HCl (From Allergy Unknown Verified 08/15/24 12:41 Covera-HS) zonisamide (From Zonegran) Allergy Shortness Verified 08/15/24 12:41 of breath acetaminophen (From Lortab) AdvReac Nausea Verified 08/15/24 12:41 hydrocodone bitartrate (From AdvReac Nausea Verified 08/15/24 12:41 Lortab) ramipril (From Altace) AdvReac Laryngospas Verified 08/15/24 12:41 ms sulfamethoxazole (From AdvReac Unknown Verified 08/15/24 12:41 Septra) trimethoprim (From Septra) AdvReac Unknown Verified 08/15/24 12:41 Surgical History History of bladder repair surgery History of carpal tunnel release History of cholecystectomy History of hysterectomy Social History (Updated 08/15/24 @ 13:11 by Dianna Hampton) household members: caregiver and none housing: apartment current occupational status: disabled current occupation: Patient is disabled due to Parkinson's disease Smoking Status: Never smoker alcohol intake: never substance use type: does not use EXAM Physical Exam Const Vital Signs: 08/15/24 12:37 08/15/24 13:10 08/15/24 14:37 Temperature 98.3 F Temperature Source Oral Pulse Rate 88 70 Respiratory Rate 18 18 Respiratory Effort Normal Non-Labored Respiratory Depth Normal Respiratory Pattern Normal Blood Pressure 150/77 H 126/66 H Blood Pressure Mean 101 86 Pulse Ox 96 98 96 Oxygen Delivery Method Room Air Room Air 08/15/24 15:05 Temperature 98.6 F Temperature Source Pulse Rate 70 Respiratory Rate 18 Respiratory Effort Respiratory Depth Respiratory Pattern Blood Pressure 126/66 H Blood Pressure Mean 86 Pulse Ox 96 Oxygen Delivery Method MDM MDM MDM Narrative Medical decision making narrative: 69-year-old female with past medical history of Parkinson's, HTN, HLD, DM2, proximal atrial fibrillation on anticoagulation presents for evaluation of mechanical fall with left rib pain. Patient states at baseline she has poor balance secondary to her Parkinson's. She fell onto her bilateral knees and hit her left lateral chest on a shower chair. Did not hit her head. No LOC. No neck or back pain. States she is here to make sure she did not fracture a rib. See physical exam findings. Differential diagnosis includes but is not limited to chest wall contusion, rib fracture, bilateral knee contusions, abrasions. Suspect less likely knee fracture. However given that patient did land on her bilateral knees with mild tenderness, I did offer x-ray of the bilateral knees however patient declined. I do think this is appropriate. She was given Tylenol for her pain. I do not think any laboratory workup is needed given this was a purely mechanical fall. X-ray of the chest and ribs obtained. X-ray of the chest and left ribs were personally reviewed and interpreted by me. No fracture or dislocation. Radiology in agreement. Patient was updated on the results. She was able to ambulate in our emergency department with a walker. Patient is stable to discharge home. Follow-up with PCP. Tylenol as needed for pain. Return precautions explained. She confirmed understand the plan. Impression: 1. Left rib contusion 2. Bilateral knee abrasions 3. Bilateral knee contusions 4. Mechanical fall 5. History of Parkinson's disease with balance issues Discharge Plan Triage Chief Complaint: Fall ED Provider: Wellington Law Dx/Rx/DC Orders Clinical Impression: Contusion of rib on left side, Abrasion of knee, bilateral Instructions: First Aid: Cuts and Scrapes, ED Chest Wall Contusion, ED Fall Prevention Prescriptions: No Action metoprolol tartrate 25 mg tablet 25 mg PO BID Qty: 180 3RF Eliquis 5 mg tablet 5 mg PO BID Qty: 180 3RF oxybutynin chloride 15 mg tablet extended release 24hr 15 mg PO BID clonidine HCl 0.3 MG tablet 1 tab PO BID amlodipine 10 MG tablet 1 tab PO DAILY cyclobenzaprine 10 MG tablet 10 mg PO QHS PRN (Reason: LEG CRAMPS) insulin degludec [Tresiba FlexTouch U-200] 200 unit/mL (3 mL) Insulin Pen 56 unit SUBCUT QHS Patient Comments: 03/31 has not taken for 3 days d/t hypoglycemia/anorexia acetaminophen 500 mg Tablet 1,000 mg PO Q6H PRN PRN (Reason: Pain Score 1-10) Qty: 0 0RF Mag 64 64 mg Tablet,Delayed Release (Dr/Ec) 128 mg PO DAILY 30 Days Qty: 60 0RF famotidine [famotidine] 20 mg tablet 20 mg PO BID Qty: 10 0RF methimazole 10 mg tablet 15 mg PO DAILY 30 Days Qty: 45 1RF Primary Care Provider: CLEMENCIA MILLER Referrals: CLEMENCIA MILLER [Other] - 3-5 Days Activity Restrictions/Additional Instructions: Follow-up with your primary care physician. Return back to the ED if symptoms change or worsen. He received Tylenol here in the emergency department, no Tylenol for 6 hours. Tylenol as needed for your rib pain. Print Language: Uzbek Disposition Disposition: Home, Self Care Discharge Date/Time: 08/15/24 16:18
[2024-08-15] MEDS: Acetaminophen 500 MG Tablet 1000 MG PO (14:25)
[2024-08-15 14:37] VITALS: BP 126/66; PULSE 70; RESP 18; O2SAT 96
[2024-08-15 15:05] VITALS: BP 126/66; PULSE 70; RESP 18; TEMP 37; O2SAT 96
== END 2024-08-15 16:18 | disposition home or self-care (01) ==
PROVIDERS: Emergency Provider Surgery; Visit Provider Surgery
DX: S20.212A Contusion of left front wall of thorax, initial encounter (principal); G20.A1 Parkinson's disease without dyskinesia, without mention of fluctuations; I48.92 Unspecified atrial flutter; E11.9 Type 2 diabetes mellitus without complications; Z79.4 Long term (current) use of insulin; S80.02XA Contusion of left knee, initial encounter; S80.01XA Contusion of right knee, initial encounter; S80.212A Abrasion, left knee, initial encounter; S80.211A Abrasion, right knee, initial encounter; W18.2XXA Fall in (into) shower or empty bathtub, initial encounter; I10 Essential (primary) hypertension; E78.5 Hyperlipidemia, unspecified; F32.A Depression, unspecified; F41.9 Anxiety disorder, unspecified; E05.00 Thyrotoxicosis with diffuse goiter without thyrotoxic crisis or storm; Z79.01 Long term (current) use of anticoagulants; Z79.899 Other long term (current) drug therapy; Z79.890 Hormone replacement therapy
CPT/HCPCS: 71101; 99285; A4216

== ENCOUNTER 2024-10-18 17:17 | Emergency (ER) | payer MEDICARE, MEDICAID, SELFPAY ==
[2024-10-18 17:19] VITALS: BP 137/75; PULSE 71; RESP 18; TEMP 37.2; O2SAT 98; BMI 41.5
--- NOTE | 2024-10-18 17:51 | CT_ITS ---
PROCEDURE: CT SPINE THORACIC WITHOUT CONTRAST 10/18/2024 REASON FOR EXAM: PAIN UPPER T-SP, REMOTE FALL TECHNIQUE: CT SPINE THORACIC WITHOUT CONTRAS Coronal and Sagittal reconstruction series were provided. One or more dose reduction techniques were used (e.g., Automated exposure control, adjustment of the mA and/or kV according to patient size, use of iterative reconstruction technique). RADIATION DOSE SUMMARY: DLP: 1968.99 mGycm COMPARISON: No prior T-spine imaging. Abdominal CT 07/29/2024. FINDINGS: No evidence of acute fracture or subluxation. Alignment is anatomic. Preserved vertebral body heights. Mild multilevel spondylotic changes without any substantial spinal canal or osseous neural foraminal narrowing appreciated. No aggressive osseous lytic or blastic lesion. Unremarkable paravertebral soft tissues. Mild-moderate atherosclerotic vascular calcifications. Visualized lung roger are clear. Stable appearing small bilateral adrenal nodules, likely benign fatty adenomas. CT/Spine Thoracic without Contras IMPRESSION: No acute fracture or malalignment. Mild spondylotic changes. Reading Location: [id number]
--- NOTE | 2024-10-18 17:51 | CT_ITS ---
PROCEDURE: CT SPINE CERVICAL WITHOUT CONTRAS 10/18/2024 REASON FOR EXAM: ABNORMAL OUPT XR SHOWING FRACTURES TECHNIQUE: CT SPINE CERVICAL WITHOUT CONTRAS Coronal and Sagittal reconstruction series were provided. One or more dose reduction techniques were used (e.g., Automated exposure control, adjustment of the mA and/or kV according to patient size, use of iterative reconstruction technique. RADIATION DOSE SUMMARY: DLP: 1968.99 mGycm COMPARISON: None. FINDINGS: No acute fracture or subluxation. Straightening and slight reversal of the cervical lordosis is likely positional and/or degenerative in nature. Mild multilevel spondylotic changes with varying degrees of disc space narrowing, anterior osteophytosis, uncovertebral spurring and hypertrophic facet arthropathy. No prevertebral soft tissue swelling. Retropharyngeal course of the bilateral carotid arteries noted, with atherosclerotic vascular calcifications. Prominent enlarged heterogeneous nodular thyroid gland with parenchymal calcifications. Mild rightward deviation of the trachea. Clear lung apices. CT/Spine Cervical without Contras IMPRESSION: 1. No acute cervical spine fracture or traumatic malalignment. 2. Mild multilevel spondylotic changes, as described. 3. Enlarged heterogeneous nodular thyroid; ultrasound may further characterize. Reading Location: [id number]
--- NOTE | 2024-10-18 17:52 | EX.ED.DYSGE1 ---
HPI History of Present Illness Chief Complaint: Other, Pain/Inj Informant: patient and EMS Narrative Narrative: 69-year-old female was sent for abnormal x-rays of her neck that were done at her apartment as an outpatient showing fractures. Patient states she has had no fall to explain this, she had pain in her upper back between her shoulder blades that started 4 days ago upon waking up. She woke up with the pain. When she went to bed the previous night she did not have the pain; just pain in her low back which she states is chronic and no different today. She states has been having some numbness and tingling that is coming and going and all of the fingers of her left hand for the last 2 weeks or more. That is not present right now. She states despite having no pain in her neck and having some pain in her upper back in the middle, outpatient cervical spine x-rays only were done, and she is surprised that they were abnormal because she is having no neck pain. The last time she fell was 2 months ago, she was seen here, was across a bathtub she injured her rib and had no neck or acute/new back pain at that time, which she confirms. She denies any other systemic symptoms right now or illness. She is in a wheelchair most of the time due to Parkinson's, she has a walker that she occasionally uses, she lives in an apartment that she basically does not leave for the most part and has family and an aide that help her. [facility] Medical History Paroxysmal atrial flutter Thyrotoxicosis due to Graves' disease Anxiety Depression Diabetes Non-smoker Asthma History of left heart catheterization Hyperlipidemia Hypertension Tremor Home Medications ?Medication ?Instructions ?Recorded ?Last Taken ?Type amlodipine 10 mg tablet 1 tab PO DAILY BLOOD PRESSURE 05/27/17 04/03/23 History clonidine HCl 0.3 mg tablet 1 tab PO BID BLOOD PRESSURE 05/27/17 04/03/23 History cyclobenzaprine 10 mg tablet 10 mg PO QHS PRN LEG CRAMPS 05/27/17 04/02/23 History insulin degludec 200 unit/mL (3 56 unit subcut QHS DIABETES 09/21/20 Unknown History mL) subcutaneous pen (Tresiba FlexTouch U-200 insulin) acetaminophen 500 mg tablet 1,000 mg (2 x 500 mg) PO Q6H PRN 04/21/23 Unknown Rx PRN Pain Score 1-10 #0 tabs magnesium chloride 64 mg 128 mg (2 x 64 mg) PO DAILY 30 04/21/23 Unknown Rx (magnesium chloride) days #60 tabs tablet,delayed release (Mag 64) oxybutynin chloride 15 mg 15 mg PO BID 05/01/23 Unknown History tablet,extended release 24 hr apixaban 5 mg tablet (Eliquis) 5 mg PO BID blood thinner #180 tabs 05/04/23 Unknown Rx metoprolol tartrate 25 mg tablet 25 mg PO BID heart/pulse #180 tabs 05/04/23 Unknown Rx famotidine 20 mg tablet 20 mg PO BID #10 TABLETS 05/08/23 Unknown Rx methimazole 10 mg tablet 15 mg (1.5 x 10 mg) PO DAILY 05/08/23 Unknown Rx thyroid 30 days #45 tabs Allergy/AdvReac Type Severity Reaction Status Date / Time adhesive tape Allergy Other Verified 10/18/24 17:23 apple Allergy Swelling Verified 10/18/24 17:23 cephalexin monohydrate (From Allergy Other Verified 10/18/24 17:23 Keflex) ciprofloxacin (From Cipro) Allergy Hives Verified 10/18/24 17:23 ciprofloxacin HCl (From Allergy Hives Verified 10/18/24 17:23 Cipro) citalopram hydrobromide Allergy Unknown Verified 10/18/24 17:23 (From Celexa) clarithromycin (From Biaxin) Allergy Unknown Verified 10/18/24 17:23 codeine Allergy Unknown Verified 10/18/24 17:23 diltiazem HCl (From Cardizem) Allergy Unknown Verified 10/18/24 17:23 fluoxetine HCl (From Prozac) Allergy Unknown Verified 10/18/24 17:23 fluticasone (From Advair Allergy Swelling Verified 10/18/24 17:23 Diskus) fluticasone propionate (From Allergy Other Verified 10/18/24 17:23 Advair Diskus) hydrochlorothiazide (From Allergy Unknown Verified 10/18/24 17:23 Hyzaar) ipratropium bromide (From Allergy Unknown Verified 10/18/24 17:23 Atrovent) labetalol Allergy Rash Verified 10/18/24 17:23 lamotrigine (From Lamictal) Allergy Unknown Verified 10/18/24 17:23 latex Allergy Unknown Verified 10/18/24 17:23 liraglutide (From Victoza) Allergy Unknown Verified 10/18/24 17:23 losartan potassium (From Allergy Unknown Verified 10/18/24 17:23 Hyzaar) meloxicam (From Mobic) Allergy Other Verified 10/18/24 17:23 nitrofurantoin (From Allergy Hives Verified 10/18/24 17:23 Macrobid) nitrofurantoin Allergy Hives Verified 10/18/24 17:23 macrocrystalline (From Macrobid) Penicillins Allergy Rash Verified 10/18/24 17:23 pineapple Allergy Other Verified 10/18/24 17:23 quetiapine fumarate (From Allergy Unknown Verified 10/18/24 17:23 Seroquel) salmeterol (From Advair Allergy Swelling Verified 10/18/24 17:23 Diskus) salmeterol xinafoate (From Allergy Other Verified 10/18/24 17:23 Advair Diskus) sertraline HCl (From Zoloft) Allergy Unknown Verified 10/18/24 17:23 simvastatin (From Zocor) Allergy Unknown Verified 10/18/24 17:23 topiramate (From Topamax) Allergy Unknown Verified 10/18/24 17:23 verapamil HCl (From Allergy Unknown Verified 10/18/24 17:23 Covera-HS) zonisamide (From Zonegran) Allergy Shortness Verified 10/18/24 17:23 of breath acetaminophen (From Lortab) AdvReac Nausea Verified 10/18/24 17:23 hydrocodone bitartrate (From AdvReac Nausea Verified 10/18/24 17:23 Lortab) ramipril (From Altace) AdvReac Laryngospas Verified 10/18/24 17:23 ms sulfamethoxazole (From AdvReac Unknown Verified 10/18/24 17:23 Septra) trimethoprim (From Septra) AdvReac Unknown Verified 10/18/24 17:23 Surgical History History of bladder repair surgery History of carpal tunnel release History of cholecystectomy History of hysterectomy Social History household members: caregiver and none housing: apartment current occupational status: disabled current occupation: Patient is disabled due to Parkinson's disease Smoking Status: Never smoker alcohol intake: never substance use type: does not use ROS ROS ED Constitutional Constitutional ED: Denies chills or fever(s) Eyes Eyes: Denies change in vision or diplopia ENT ENT ED: Denies rhinorrhea or sore throat Cardiovascular Cardiovascular: Denies chest pain or palpitations Respiratory/Chest Respiratory/Chest: Denies cough or dyspnea Gastrointestinal Gastrointestinal: Denies abdominal pain, diarrhea, nausea or vomiting Genitourinary Genitourinary ED: Denies dysuria or hematuria Musculoskeletal Musculoskeletal: Reports as per HPI, abnormal gait and back pain; Denies neck pain Integumentary Denies abscess or rash Neurologic Neurologic: Reports as per HPI, paresthesias LUE (intermittent, not present now) and tremor(s); Denies headache(s), vertigo or weakness Psychiatric Psychiatric: Denies anxiety or suicidal thoughts EXAM Physical Exam Const Vital Signs: 10/18/24 17:19 10/18/24 17:23 Temperature 99 F Temperature Source Oral Pulse Rate 71 Respiratory Rate 18 Respiratory Effort Normal Non-Labored Respiratory Pattern Normal Blood Pressure 137/75 H Blood Pressure Mean 95 Pulse Ox 98 Oxygen Delivery Method Room Air Positive well nourished, well developed and obese General Appearance ED: well developed and NAD Nutritional Appearance: obese HEENT Reports moist mucous membranes normocephalic and atraumatic Eyes PERRL and EOMs intact bilaterally Neck Neck Narrative: EMS c-collar in place. Patient has very mild tenderness in the mid cervical spine midline there is no palpable step-off or obvious signs of injury/trauma externally. Resp normal respiratory effort and clear to auscultation bilaterally Cardio regular rate, regular rhythm and no murmurs GI non-tender and non-distended Auscultation: normoactive bowel sounds Palpation: soft Back/Spine no CVA tenderness Back/Spine Narrative: Limited range of motion due to pain in the lower back. Patient indicates that for the past 4 days she has been having pain in the T3-4 area but there is no reproducible midline tenderness right now including the lumbar spine. Extremity normal to inspection General Extremety ED: Negative for edema, pulses abnormal or tenderness General Extremity: Negative for edema or pulses abnormal Neuro oriented x3, CN's II-XII intact bilaterally and no sensory deficits noted Neuro Narrative: Resting tremor both upper extremities worse on the right. No sensory deficits including special attention to the left upper extremity. Sensorium / Orientation: awake and alert Motor Exam: general weakness Psych mental status grossly normal Skin no rashes or lesions noted and no wounds MDM MDM MDM Narrative Medical decision making narrative: I do not have access to the patient's outpatient x-rays nor his report. Apparently the concern was that she had wedge fractures in C3 and C5. Her pain, however is in the upper thoracic region and she is not having the pain right now but when she moves certain way sometimes she gets it. For these reasons I obtained CT scans of the cervical and thoracic spine. I reviewed images and report which I agree with, they are basically negative for any type of fracture. There are chronic abnormalities noted but not necessarily focal to these areas. C-collar removed patient is able to move her head and neck, and stable for discharge. Radiography Diagnostic Testing: Clinical Impression(s) from Imaging Studies Cervical Spine CT 10/18/24 17:51 IMPRESSION: 1. No acute cervical spine fracture or traumatic malalignment. 2. Mild multilevel spondylotic changes, as described. 3. Enlarged heterogeneous nodular thyroid; ultrasound may further characterize. Reading Location: [facility] Thoracic Spine CT 10/18/24 17:51 IMPRESSION: No acute fracture or malalignment. Mild spondylotic changes. Reading Location: [facility] Discharge Plan Triage Chief Complaint: Other, Pain/Inj ED Provider: Luis Mcdonald Dx/Rx/DC Orders Clinical Impression: Acute thoracic myofascial strain, Abnormal x-ray of neck Instructions: ED Back Sprain/Strain Prescriptions: No Action metoprolol tartrate 25 mg tablet 25 mg PO BID Qty: 180 3RF Eliquis 5 mg tablet 5 mg PO BID Qty: 180 3RF oxybutynin chloride 15 mg tablet extended release 24hr 15 mg PO BID clonidine HCl 0.3 MG tablet 1 tab PO BID amlodipine 10 MG tablet 1 tab PO DAILY cyclobenzaprine 10 MG tablet 10 mg PO QHS PRN (Reason: LEG CRAMPS) insulin degludec [Tresiba FlexTouch U-200] 200 unit/mL (3 mL) Insulin Pen 56 unit SUBCUT QHS Patient Comments: 03/31 has not taken for 3 days d/t hypoglycemia/anorexia acetaminophen 500 mg Tablet 1,000 mg PO Q6H PRN PRN (Reason: Pain Score 1-10) Qty: 0 0RF Mag 64 64 mg Tablet,Delayed Release (Dr/Ec) 128 mg PO DAILY 30 Days Qty: 60 0RF famotidine [famotidine] 20 mg tablet 20 mg PO BID Qty: 10 0RF methimazole 10 mg tablet 15 mg PO DAILY 30 Days Qty: 45 1RF Primary Care Provider: Pb Wallace Referrals: Pb Wallace MD [Primary Care Provider] - Print Language: Slovenian Disposition Disposition: Home, Self Care
[2024-10-18 19:18] VITALS: BP 148/70; PULSE 80; O2SAT 100
[2024-10-18 19:30] VITALS: BP 137/75; PULSE 71; RESP 18; TEMP 37.2; O2SAT 98
== END 2024-10-18 21:01 | disposition home or self-care (01) ==
PROVIDERS: Emergency Provider Emergency Medicine; PCP Internal Medicine; Visit Provider Emergency Medicine
DX: S29.012A Strain of muscle and tendon of back wall of thorax, initial encounter (principal); G20.A1 Parkinson's disease without dyskinesia, without mention of fluctuations; E11.9 Type 2 diabetes mellitus without complications; Z79.4 Long term (current) use of insulin; R93.7 Abnormal findings on diagnostic imaging of other parts of musculoskeletal system; M54.50 Low back pain, unspecified; I10 Essential (primary) hypertension; E78.5 Hyperlipidemia, unspecified; G89.29 Other chronic pain; J45.909 Unspecified asthma, uncomplicated; Z79.01 Long term (current) use of anticoagulants; Z79.899 Other long term (current) drug therapy
CPT/HCPCS: 72125; 72128; 99285

== ENCOUNTER 2025-01-25 20:02 | Emergency (ER) | payer MEDICARE, MEDICAID, SELFPAY ==
[2025-01-25 20:03] VITALS: BP 176/117; PULSE 92; RESP 18; TEMP 36.9; O2SAT 97; BMI 40.2
[2025-01-25 20:10] VITALS: BP 148/91; PULSE 101; RESP 20; TEMP 36.9; O2SAT 100
--- NOTE | 2025-01-25 20:45 | EX.ED.DYSGE1 ---
HPI History of Present Illness Chief Complaint: Weakness Informant: patient Onset/Context/Timing Onset: Today and Yesterday Context: Gradual Onset Timing: Continuous Current Severity: Mild Maximum Severity: Mild Narrative Narrative: 69-year-old female history of hypertension, A-flutter on Eliquis, diabetes and Parkinson's disease. States that she fell tonight. States he feels generally weak. She injured her knees left more than right when she fell. She is on blood thinner Eliquis she denies hitting her head at all. She is concerned she may have a UTI because she said often she does when she has weakness. She lives alone in a apartment. She uses a walker and at times uses a wheelchair. She does have aides to come and help her. Prior similar symptoms: Yes Recent Illness/Hospitalization: No [facility] Medical History Paroxysmal atrial flutter Thyrotoxicosis due to Graves' disease Anxiety Depression Diabetes Non-smoker Asthma History of left heart catheterization Hyperlipidemia Hypertension Tremor Home Medications Medication Instructions Recorded Last Taken Type amlodipine 10 mg tablet 1 tab PO DAILY BLOOD PRESSURE 05/27/17 01/25/25 History insulin degludec 200 unit/mL (3 10 unit subcut DAILY DIABETES 09/21/20 01/25/25 History mL) subcutaneous pen (Tresiba FlexTouch U-200 insulin) acetaminophen 500 mg tablet 1,000 mg (2 x 500 mg) PO Q6H PRN 04/21/23 01/25/25 Rx PRN Pain Score 1-10 #0 tabs magnesium chloride 64 mg 128 mg (2 x 64 mg) PO DAILY 30 04/21/23 01/24/25 Rx (magnesium chloride) days #60 tabs tablet,delayed release (Mag 64) oxybutynin chloride 15 mg 15 mg PO BID 05/01/23 Unknown History tablet,extended release 24 hr apixaban 5 mg tablet (Eliquis) 5 mg PO BID blood thinner #180 tabs 05/04/23 01/25/25 08:00 Rx metoprolol tartrate 25 mg tablet 25 mg PO BID heart/pulse #180 tabs 05/04/23 01/25/25 08:00 Rx Lactobacillus acidophilus 1 1,000 mmu cells PO DAILY 01/25/25 Unknown History billion cell capsule cephalexin 500 mg capsule 500 mg PO Q6 7 days #28 CAPSULES 01/25/25 Unknown Rx cholecalciferol (vitamin D3) 50 50 mcg PO DAILY 01/25/25 01/25/25 History mcg (2,000 unit) capsule methimazole 10 mg tablet 10 mg PO DAILY thyroid 01/25/25 01/25/25 History nystatin 100,000 unit/gram topical 1 applic topical TID 01/25/25 01/24/25 History powder omega-3 fatty acids 1,000 mg 4,000 mg PO DAILY 01/25/25 01/25/25 History capsule (Super [place]-3) omeprazole 40 mg capsule,delayed 40 mg PO DAILY 01/25/25 01/25/25 History release sennosides 17.2 mg tablet (Senokot 17.2 mg PO DAILY 01/25/25 01/22/25 History Extra Strength) tizanidine 2 mg tablet 4 mg PO BID 01/25/25 01/25/25 11:28 History Allergy/AdvReac Type Severity Reaction Status Date / Time adhesive tape Allergy Other Verified 01/25/25 20:10 apple Allergy Swelling Verified 01/25/25 20:10 cephalexin monohydrate (From Allergy Other Verified 01/25/25 20:10 Keflex) ciprofloxacin (From Cipro) Allergy Hives Verified 01/25/25 20:10 ciprofloxacin HCl (From Allergy Hives Verified 01/25/25 20:10 Cipro) citalopram hydrobromide Allergy Unknown Verified 01/25/25 20:10 (From Celexa) clarithromycin (From Biaxin) Allergy Unknown Verified 01/25/25 20:10 codeine Allergy Unknown Verified 01/25/25 20:10 diltiazem HCl (From Cardizem) Allergy Unknown Verified 01/25/25 20:10 fluoxetine HCl (From Prozac) Allergy Unknown Verified 01/25/25 20:10 fluticasone (From Advair Allergy Swelling Verified 01/25/25 20:10 Diskus) fluticasone propionate (From Allergy Other Verified 01/25/25 20:10 Advair Diskus) hydrochlorothiazide (From Allergy Unknown Verified 01/25/25 20:10 Hyzaar) ipratropium bromide (From Allergy Unknown Verified 01/25/25 20:10 Atrovent) labetalol Allergy Rash Verified 01/25/25 20:10 lamotrigine (From Lamictal) Allergy Unknown Verified 01/25/25 20:10 latex Allergy Unknown Verified 01/25/25 20:10 liraglutide (From Victoza) Allergy Unknown Verified 01/25/25 20:10 losartan potassium (From Allergy Unknown Verified 01/25/25 20:10 Hyzaar) meloxicam (From Mobic) Allergy Other Verified 01/25/25 20:10 nitrofurantoin (From Allergy Hives Verified 01/25/25 20:10 Macrobid) nitrofurantoin Allergy Hives Verified 01/25/25 20:10 macrocrystalline (From Macrobid) Penicillins Allergy Rash Verified 01/25/25 20:10 pineapple Allergy Other Verified 01/25/25 20:10 quetiapine fumarate (From Allergy Unknown Verified 01/25/25 20:10 Seroquel) salmeterol (From Advair Allergy Swelling Verified 01/25/25 20:10 Diskus) salmeterol xinafoate (From Allergy Other Verified 01/25/25 20:10 Advair Diskus) sertraline HCl (From Zoloft) Allergy Unknown Verified 01/25/25 20:10 simvastatin (From Zocor) Allergy Unknown Verified 01/25/25 20:10 topiramate (From Topamax) Allergy Unknown Verified 01/25/25 20:10 verapamil HCl (From Allergy Unknown Verified 01/25/25 20:10 Covera-HS) zonisamide (From Zonegran) Allergy Shortness Verified 01/25/25 20:10 of breath acetaminophen (From Lortab) AdvReac Nausea Verified 01/25/25 20:10 hydrocodone bitartrate (From AdvReac Nausea Verified 01/25/25 20:10 Lortab) ramipril (From Altace) AdvReac Laryngospas Verified 01/25/25 20:10 ms sulfamethoxazole (From AdvReac Unknown Verified 01/25/25 20:10 Septra) trimethoprim (From Septra) AdvReac Unknown Verified 01/25/25 20:10 Surgical History History of bladder repair surgery History of hysterectomy History of carpal tunnel release History of cholecystectomy Social History household members: caregiver and none housing: apartment current occupational status: disabled current occupation: Patient is disabled due to Parkinson's disease Smoking Status: Never smoker alcohol intake: never substance use type: does not use ROS ROS ED ROS Narrative Nausea. Denies vomiting or diarrhea. Dysuria. Generalized weakness. Constitutional Constitutional ED: Denies chills or fever(s) Eyes Eyes: Denies blurry vision ENT ENT ED: Denies ear pain Cardiovascular Cardiovascular: Denies chest pain Respiratory/Chest Respiratory/Chest: Denies cough or dyspnea Gastrointestinal Gastrointestinal: Reports nausea; Denies abdominal pain, constipation, diarrhea, melena or vomiting Genitourinary Genitourinary ED: Reports dysuria; Denies hematuria Musculoskeletal Musculoskeletal: Denies arthralgias Integumentary Denies abscess Neurologic Neurologic: Denies headache(s) Psychiatric Psychiatric: Denies anxiety Endocrine Endocrinology: Denies cold intolerance Hematologic/Lymphatic Hematologic/Lymphatic: Reports none Allergic/Immunologic Allergic/Immunologic ED: Denies mouth swelling, tongue swelling or urticaria EXAM Physical Exam Narrative Exam Narrative: 69-year-old female vital signs are stable afebrile. Initial blood pressure elevated repeat 148/91. Pulse ox 100% on room air no signs of hypoxia. HEENT exam pupils round react to light. Moist mucous membranes. Neck nontender. No trauma to her face or scalp. No hematoma or tenderness. Back nontender. Lungs clear to auscultation bilaterally. Heart regular rhythm rate about 100 no murmur. Chest wall and ribs nontender. Abdomen soft and nontender. No peritoneal signs. Pelvic girdle intact. Moving all 4 extremities. General weakness to all 4 extremities. Contusion of both knees worse on the left. No gross bony deformity. Grain Manager strength 4-5 bilaterally. Dorsi plantarflexion intact. Neurologically she is awake alert. Answering questions following commands. Pill-rolling deformity of both hands from her Parkinson's. Const Vital Signs: 01/25/25 20:03 01/25/25 20:10 01/25/25 20:33 Temperature 98.5 F 98.5 F Temperature Source Oral Oral Pulse Rate 92 101 H Respiratory Rate 18 20 H Respiratory Effort Normal Respiratory Pattern Normal Blood Pressure 176/117 H 148/91 H Blood Pressure Mean 136 110 Pulse Ox 97 100 Oxygen Delivery Method Room Air Room Air 01/25/25 21:10 01/25/25 21:47 01/25/25 22:00 Temperature 98.5 F 98.5 F Temperature Source Oral Oral Pulse Rate 95 90 90 Respiratory Rate 18 22 H Respiratory Effort Respiratory Pattern Blood Pressure 166/129 H 149/58 H 139/76 H Blood Pressure Mean 141 88 97 Pulse Ox 97 96 Oxygen Delivery Method Room Air Room Air MDM MDM MDM Narrative Medical decision making narrative: 69-year-old female generalized weakness history of Parkinson's. X-rays obtained of her knees due to the fall. She did not hit her head and has no signs of trauma to her head or face she does not need brain imaging. Screening labs to be obtained due to the weakness and urine to rule out infection. Repeat exam around 9:40 PM patient is resting comfortably. She has for some nausea medication. We have gone over her initial test. Repeat exam around 11 PM. Patient resting comfortably. She had a long discussion. She wants to be discharged to home. Said should be okay at home and has a family member coming to meet her at the house. She has a wheelchair at the house. Given her urinary symptoms and UA I will do a culture we will start her on antibiotic she has been on Keflex before it worked well for her. She be given a dose here and a prescription. Outpatient follow-up with her primary care provider. Return if she is feeling worse. History & Record Review Discussion w/independent historian: Patient Additional record(s) reviewed:: Prior outpatient record, Prior ED visit and Prior labs Lab Data Attestation: I reviewed the patient's lab results. Lab results narrative: CBC shows white count 13.6. H&H 12.6 and 40. Platelets 187. Electrolytes show gap of 13. BUN and creatinine 28 and 1. Consistent with dehydration. Glucose 167. Chest x-ray unremarkable. UA shows 5-10 white cells no epithelial cells. No nitrates and 2+ bacteria. Culture will be sent. Labs: Laboratory Results - last 24 hr 01/25/25 01/25/25 20:31 21:16 WBC 13.6 H RBC 4.82 Hgb 12.6 Hct 40.7 MCV 84.4 MCH 26.1 L MCHC 31.0 L RDW Std Deviation 47.4 H RDW Coeff of Rico 15.3 H Plt Count 187 MPV 12.2 H Immature Gran % (Auto) 0.500 Neut % (Auto) 82.6 H Lymph % (Auto) 8.0 L Collier % (Auto) 7.3 Eos % (Auto) 1.1 Baso % (Auto) 0.5 Absolute Neuts (auto) 11.2 H Absolute Lymphs (auto) 1.08 Nucleated RBC % 0 Sodium 141 Potassium 3.6 Chloride 104 Carbon Dioxide 24.2 Anion Gap 13 BUN 28 H Creatinine 1.02 Estim Creat Clear Calc 59.16 Est GFR (MDRD) Non-Af 60 BUN/Creatinine Ratio 27.6 H Glucose 167 H Calcium 9.7 Urine Color Yellow Urine Clarity Clear Urine pH 5.0 Ur Specific Wells 1.020 Urine Protein 500 H Urine Glucose (UA) Normal Urine Ketones Negative Urine Occult Blood 50 H Urine Nitrite Negative Urine Bilirubin Negative Urine Urobilinogen Normal Ur Leukocyte Esterase 25 H Urine RBC 0-5 SEEN Urine WBC 5-10 SEEN Ur Squamous Epith Cells 0 SEEN Urine Bacteria 2+ Hyaline Casts 0-5 SEEN Fine Granular Casts 0-5 SEEN Urine Mucus 2+ Radiography Chest X-Ray - ED: 1 View, Normal, Heart, Lungs, Mediastinum, Bony Structures, No Acute Disease and Chronic Changes Diagnostic Testing: Clinical Impression(s) from Imaging Studies Chest X-Ray 01/25/25 21:22 IMPRESSION: No acute cardiopulmonary disease. Reading [facility] Knee X-Ray 01/25/25 21:22 IMPRESSION: No acute fracture or dislocation. Mild-moderate tricompartmental degenerative arthrosis. Reading Location: [facility] Knee X-Ray 01/25/25 21:22 IMPRESSION: No acute fracture or dislocation. Mild-moderate tricompartmental degenerative arthrosis. Reading Location: [facility] Chest x-ray, portable, single view interpreted by myself shows normal cardiac silhouette. Normal lung roger. No pneumonia. No effusions. Chronic changes. Right knee x-ray, 2 views, interpreted by myself and the radiology shows chronic arthritis. Right knee x-ray, 2 views, interpreted by myself and the radiologist shows degenerative joint disease. No acute fracture. No dislocation. Left knee x-ray, 2 views, AP and lateral, interpreted by myself and radiologist again shows chronic degenerative changes. No acute fracture. Rhythm Strip Rhythm Strip: Sinus Rhythm Rate: 89 Ectopy: PVC(s) EKG Initial EKG: Attestation: I personally reviewed and interpreted this EKG as follows: Interpretation: Sinus Rhythm and No Acute Injury Pattern Comments: Normal sinus rhythm rate 89. PVCs. Artifact due to her Parkinson's. Discharge Plan Triage Chief Complaint: Weakness ED Provider: Tarik Engle Dx/Rx/DC Orders Clinical Impression: Generalized weakness, UTI (urinary tract infection), History of Parkinson disease, History of atrial flutter, Chronic anticoagulation, History of diabetes mellitus Instructions: Urinary Tract Infections in Women Prescriptions: New cephalexin 500 mg capsule 500 mg PO Q6 7 Days Qty: 28 0RF No Action metoprolol tartrate 25 mg tablet 25 mg PO BID Qty: 180 3RF Eliquis 5 mg tablet 5 mg PO BID Qty: 180 3RF oxybutynin chloride 15 mg tablet extended release 24hr 15 mg PO BID amlodipine 10 MG tablet 1 tab PO DAILY insulin degludec [Tresiba FlexTouch U-200] 200 unit/mL (3 mL) Insulin Pen 10 unit SUBCUT DAILY acetaminophen 500 mg Tablet 1,000 mg PO Q6H PRN PRN (Reason: Pain Score 1-10) Qty: 0 0RF magnesium chloride [Mag 64] 64 mg Tablet,Delayed Release (Dr/Ec) 128 mg PO DAILY 30 Days Qty: 60 0RF tizanidine 2 mg tablet 4 mg PO BID omega-3 fatty acids [Super [place]-3] 1,000 mg capsule 4,000 mg PO DAILY omeprazole 40 mg capsule,delayed release(DR/EC) 40 mg PO DAILY nystatin 100,000 unit/gram powder 1 applic topical TID Senokot Extra Strength 17.2 mg tablet 17.2 mg PO DAILY cholecalciferol (vitamin D3) 50 mcg (2,000 unit) capsule 50 mcg PO DAILY Lactobacillus acidophilus 1 billion cell capsule 1,000 mmu cells PO DAILY methimazole 10 mg tablet 10 mg PO DAILY Primary Care Provider: Pb Wallace Referrals: Pb Wallace MD [Primary Care Provider, Internal Medicine] - 3-5 Days Activity Restrictions/Additional Instructions: Plenty of fluids and rest. You may have a urinary tract infection. A urine culture was sent. He will be started on antibiotic Keflex 1 pill 4 times a day for 7 days. Follow-up with your doctor to ensure you are improving. Return if you are feeling worse. Print Language: Maltese Disposition Disposition: Home, Self Care
[2025-01-25] MEDS: 0.9% Normal Saline (1000mL) 1,000 ML 1000 ML IV (20:47)
--- NOTE | 2025-01-25 20:51 | EKG12_ITS ---
Test Reason : WEAKNESS Blood Pressure : */* mmHG Vent. Rate : 89 BPM Atrial Rate : 89 BPM P-R Int : 152 ms QRS Dur : 72 ms QT Int : 376 ms P-R-T Axes : 100 -5 73 degrees QTcB Int : 457 ms Sinus rhythm with frequent Premature ventricular complexes Nonspecific ST and T wave abnormality Abnormal ECG pvcs artifact Confirmed by JAQUELIEN DEGROOT ([id number]), map editor BRADY HOSKINS ([id number]) on 01/30/2025 6:30:03 AM Referred By: Confirmed By: JAQUELINE DEGROOT
[2025-01-25 20:55] LABS: Hematocrit 40.7 % (37-47); Hemoglobin 12.6 g/dL (12.0-15.0); Immature Granulocytes Count 0.070 X10^3/uL (0.0-0.0); Mean Corp Hgb Conc 31.0 g/dL (32-36); Mean Corpuscular Volume 84.4 fL (81-99); Mean Platelet Vol. 12.2 fl (6.2-12.0); NRBC Flagged by Analyzer 0 % (0-5); Platelet Count 187 K/mm3 (150-450); RBC Distribution Width CV 15.3 % (11.6-14.6); RBC Distribution Width SD 47.4 fl (35.1-43.9); Red Blood Count 4.82 M/mm3 (4.2-5.4); White Blood Count 13.6 K/mm3 (4.4-11.0)
--- OUTSIDE RECORDS SUMMARY | 2025-01-25 21:07 | XMS RPT_ITS | CCD ---
Author Organization [facility]ini[facility] Care Team Providers Care Cane Stripper Name Role Phone Sagrario Perez MD Primary Care Provider [facility], Keti Unavailable Dr. Sagrario Perez Primary Care Provider Dr. Luis Mcdonald Emergency Provider Dr. Noa Lao Admit Provider Dr. Noa Lao Attending Provider Dr. Noa Lao Other Provider Dr. Dana Robles Other Provider Dr. Dana Robles Attending Provider Dr. Ethan Yip Attending Provider Dr. Ethan Yip Other Provider Dr. Ethan Yip Attending Provider Sagrario Perez MD Primary Care Provider Dr. Sagrario Perez Referring Provider Dr. Chris Simmons Attending Provider Malik CROWLEY, PA Marisol Locke Attending Provider Dr. Sagrario Perez Primary Care Provider Dr. Luis Mcdonald Emergency Provider [phone] Noa Lao Admit Provider Dr. Noa Lao Attending Provider Dr. Noa Lao Other Provider Dr. Dana Robles Other Provider Dr. Ethan Yip Attending Provider Dr. Dana Robles Attending Provider Dr. Ethan Yip Other Provider Dr. Sagrario Perez Referring Provider Dr. Chris Simmons Attending Provider Malik CROWLEY, PA Marisol Locke Attending Provider Sagrario Perez MD Primary Care Provider [facility], [facility]eti Unavailable Benedict INSTRUCTOR TECHNICAL TRAINING.NOVELTIES SALES REPRESENTATIVE, Danielle Unavailable Gabriela INSTRUCTOR TECHNICAL TRAINING.ORE MINER BLASTING, Billie Unavailable MARIANELA MOONEY Referring Unavailable MARIANELA MOONEY Attending Unavailable SAGRARIO PEREZ Primary Care Unavailable SAGRARIO PEREZ Attending Unavailable SAGRARIO PEREZ Primary Care Unavailable CHARLESARDEddie, CLEMENCIA Primary Care Provider [phone] Dr. Luis Mcdonald MD Emergency Provider Harry JIMÉNEZ, Dr. Smith Attending Provider Dr. Wellington Law DO Emergency Provider Dr. Wellington Law DO Attending Provider Dr. Loly Loo MD Attending Provider Dr. Pb Wallace MD Primary Care Provider Luis Mcdonald Attending Unavailable LANEY PARKER Primary Care Unavailable Luis Mcdonald Attending Unavailable LANEY PARKER Primary Care Unavailable LANEY PARKER Primary Care Unavailable Wellington Law Attending UnavailPb Husain Primary Care Unavailable Luis Mcdonald Attending Unavailable Allergies Allergy Classification Reported Allergen(s) Allergy Type Date of Onset Reaction(s) Facility (20 sources) Acetaminophen / HYDROcodone; Translations: [HYDROCODONE-ACETAMINO PHEN] Drug Allergy 006 Mental Status Change [facility] Work Phone: [phone] (20 sources) Adhesive Tape; Translations: [ADHESIVE TAPE (ROSINS)] Allergy to substance 006 Rash [facility] Work Phone: (20 sources) Cephalexin; Translations: [CEPHALEXIN] Drug Allergy 006 Itching [facility] Work Phone: (20 sources) Ciprofloxacin; Translations: [CIPROFLOXACIN] Drug Allergy 016 Rash, Other: See Comments [facility] (20 sources) Citalopram; Translations: [CITALOPRAM HYDROBROMIDE] Drug Allergy 007 Unknown [facility] Work Phone: (20 sources) Clarithromycin; Translations: [CLARITHROMYCIN] Drug Allergy 006 Mental Status Change [facility] Work Phone: [phone] (20 sources) Codeine; Translations: [CODEINE] Drug Allergy 006 Rash [facility] Work Phone: (20 sources) dilTIAZem; Translations: [DILTIAZEM HCL] Drug Allergy 006 Anaphylaxis [facility] Work Phone: (20 sources) FLUoxetine; Translations: [FLUOXETINE HCL] Drug Allergy 007 Shortness of Breath [facility] (20 sources) fluticasone / salmeterol; Translations: [FLUTICASONE PROPION-SALMETEROL] Drug Allergy 006 Swelling [facility] (20 sources) hydroCHLOROthiazide / Losartan; Translations: [LOSARTAN-HYDROCHLOROT HIAZIDE] Drug Allergy 006 [facility] Work Phone: (20 sources) Ipratropium; Translations: [IPRATROPIUM BROMIDE] Drug Allergy 006 [facility] Work Phone: (20 sources) Labetalol; Translations: [LABETALOL] Drug Allergy 006 [facility] Work Phone: [phone] (20 sources) lamoTRIgine; Translations: [LAMOTRIGINE] Drug Allergy 006 Rash [facility] Work Phone: [phone] (20 sources) Latex; Translations: [LATEX] Drug Intolerance 009 Rash [facility] Work Phone: [phone] (20 sources) liraglutide; Translations: [LIRAGLUTIDE] Drug Allergy 011 Swelling [facility] Work Phone: [phone] (20 sources) meloxicam; Translations: [MELOXICAM] Drug Allergy 011 Other: See Comments [facility] Work Phone: [phone] (20 sources) QUEtiapine; Translations: [QUETIAPINE FUMARATE] Drug Allergy 006 Shortness of Breath [facility] Work Phone: [phone] (20 sources) Ramipril; Translations: [RAMIPRIL] Drug Allergy 006 Anaphylaxis [facility] Work Phone: [phone] (20 sources) Sertraline; Translations: [SERTRALINE HCL] Drug Allergy 007 Intolerance [facility] Work Phone: [phone] (20 sources) Simvastatin; Translations: [SIMVASTATIN] Drug Allergy 009 Swelling [facility] (20 sources) Sulfamethoxazole / Trimethoprim; Translations: [SULFAMETHOXAZOLE-TRIM ETHOPRIM] Drug Allergy 006 GI Upset [facility] Work Phone: [phone] (20 sources) topiramate; Translations: [TOPIRAMATE] Drug Allergy 014 Other: See Comments [facility] Work Phone: (20 sources) Verapamil; Translations: [VERAPAMIL HCL] Drug Allergy 006 Unknown [facility] Work Phone: [phone] (20 sources) zonisamide; Translations: [ZONISAMIDE] Drug Allergy 006 Shortness of Breath [facility] Work Phone: [phone] (20 sources) Pineapple; Translations: [PINEAPPLE] Drug Allergy 021 Swelling [facility] Work Phone: [phone] Comment on above: *RAW PINEAPPLE* "preston th turns bloody and raw and then it goes through me bloody and raw" (20 sources) Methenamine; Translations: [METHENAMINE] Drug Allergy 023 Rash, Swelling, Itching, Anaphylaxis [facility] Work Phone: (7 sources) Acetaminophen Drug Allergy Nausea [facility] (8 sources) Adhesive Tape; Translations: [adhesive tape] Allergy to substance Other [facility] (7 sources) Apple extract Drug Allergy 024 Swelling [facility] Comment on above: RAW APPLES ONLY pt states she can have cooked apples/applesauce (8 sources) Cephalexin; Translations: [cephalexin monohydrate] Drug Allergy [facility] Comment on above: DIME SIZE SPOTS ON L EGS (8 sources) Ciprofloxacin; Translations: [ciprofloxacin HCl] Drug Allergy [facility] (7 sources) fluticasone Drug Allergy [facility] (8 sources) fluticasone; Translations: [fluticasone propionate] Drug Allergy Other [facility] (7 sources) hydroCHLOROthiazide Drug Allergy Unknown [facility] (8 sources) HYDROcodone; Translations: [hydrocodone bitartrate] Drug Allergy Nausea [facility] (8 sources) Losartan; Translations: [losartan potassium] Drug Allergy Unknown [facility] (7 sources) Nitrofurantoin Drug Allergy [facility] (7 sources) Penicillins Allergy to substance Rash [facility] (7 sources) salmeterol Drug Allergy Swelling [facility] (8 sources) salmeterol; Translations: [salmeterol xinafoate] Drug Allergy Other [facility] (7 sources) Sulfamethoxazole Drug Allergy Unknown [facility] (7 sources) Trimethoprim Drug Allergy Unknown [facility] (8 sources) nitrofurantoin macrocrystalline; Translations: [nitrofurantoin macrocrystalline] Allergy to substance 020 Hives [facility] (11 sources) Carbidopa / Levodopa; Translations: [CARBIDOPA-LEVODOPA] Drug Allergy 024 Rash, Swelling [facility] (1 source) Acetaminophen Drug Allergy [facility] (1 source) Apple extract Drug Allergy [facility] (1 source) Ciprofloxacin Drug Allergy [facility] (1 source) Citalopram Drug Allergy [facility] (1 source) Clarithromycin Drug Allergy [facility] (1 source) Codeine Drug Allergy [facility] (1 source) dilTIAZem Drug Allergy [facility] (1 source) FLUoxetine Drug Allergy [facility] (1 source) fluticasone Drug Allergy [facility] (1 source) hydroCHLOROthiazide Drug Allergy [facility] (1 source) Ipratropium Drug Allergy [facility] (1 source) Labetalol Drug Allergy [facility] (1 source) lamoTRIgine Drug Allergy [facility] (1 source) Latex Drug allergy (disorder) [facility] (1 source) liraglutide Drug Allergy [facility] (1 source) meloxicam Drug Allergy [facility] (1 source) Nitrofurantoin Drug Allergy [facility] (1 source) Penicillins Drug allergy (disorder) [facility] (1 source) QUEtiapine Drug Allergy [facility] (1 source) Ramipril Drug Allergy [facility] (1 source) salmeterol Drug Allergy [facility] (1 source) Sertraline Drug Allergy [facility] (1 source) Simvastatin Drug Allergy [facility] (1 source) Sulfamethoxazole Drug Allergy [facility] (1 source) topiramate Drug Allergy [facility] (1 source) Trimethoprim Drug Allergy [facility] (1 source) Verapamil Drug Allergy [facility] (1 source) zonisamide Drug Allergy [facility] (1 source) pineapple Drug allergy (disorder) [facility] Medications Current Medications Medication Drug Class(es) Dates Sig (Normalized) Sig (Original) acetaminophen 500 mg oral tablet (6 sources) Start: 04-21-2023 take 2 tablets by mouth every six hours as needed for pain Acetaminophen 500 mg Tablet Active 1000 mg PO EVERY 6 HOURS NEEDED as needed for Pain Score 1-10 0 0 April 21, 2023 1:00am Start: 04-21-2023 take 1000 mg by mout h every six hours as needed Acetaminophen Active 1000 MG PO EVERY 6 HOURS NEEDED 0 April 21, 2023 1:00am amLODIPine 10 mg oral tablet (20 sources) Dihydropyridine Calcium Channel Jarocho Start: 03-10-2023 End: 12-04-2023 take 1 tablet by mouth once daily amLODIPine (NORVASC) 10 mg tablet Take 1 tablet by mouth once daily. 90 tablet 3 12/04/2023 Active Start: 05-27-2017 Amlodipine 10 MG tablet Active 1 {tbl} PO DAILY May 27, 2017 12:00am BLOOD PRESSURE Start: 05-27-2017 End: 04-29-2022 take 1 tablet by mouth once daily amLODIPine (NORVASC) 10 mg tablet Take 1 tablet by mouth once daily. 90 tablet 3 05/21/2020 04/02/2021 Discontinued Comment on above: Take 1 tablet by preston th once daily. Blood-Glucose Meter monitoring kit (20 sources) Start: 05-29-2020 Blood-Glucose Meter monitoring kit Indications: Controlled type 2 diabetes mellitus with diabetic neuropathy, with long-term current use of insulin (HCC) Glucose Meter of Choice - Kit - As directed to test blood sugar up to 3 times daily. Dx: Other DM Code E11.40. 1 Each 05/29/2020 Active Start: 05-29-2020 Blood-Glucose Meter monitoring kit Indications: Controlled type 2 diabetes mellitus with diabetic neuropathy, with long-term current use of insulin (HCC) Glucose Meter of Choice - Kit - As directed to test blood sugar up to 3 times daily. Dx: Other DM Code E11.40. 1 Each 0 05/29/2020 Active Comment on above: Glucose Meter of Cho ice - Kit - As directed to test blood sugar up to 3 times daily. Dx: Other DM Code E11.40. cholecalciferol 0.05 mg oral tablet (20 sources) Vitamin D Start: 10-16-19 End: 04-28-19 24 take 1 tablet by mouth once daily cholecalciferol (VITAMIN D3) 50 mcg (2,000 unit) tablet Take 1 tablet by mouth once daily. 90 tablet 3 04/28/2023 Active Start: 10-15-2020 End: 06-10-2021 take 1 capsule by mouth every week cholecalciferol, Vitamin D3, (VITAMIN D3) 1,250 mcg (50,000 unit) cap capsule Take 1 capsule by mouth one time a week. Then start taking vitamin D3 2000 IU daily 12 capsule 10/15/2020 06/10/2021 Discontinued Comment on above: Take 1 tablet by preston th once daily. Take 1 capsule by mo [facility] one time a week. Then start taking vitamin D3 2000 IU daily cloNIDine hydrochloride 0.3 mg oral tablet (20 sources) Central alpha-2 Adrenergic Agonist Start: take 1 tablet by mouth twice daily cloNIDine HCl (CATAPRES) 0.3 mg tablet Indications: Essential hypertension Take 1 tablet by mouth two times a day. 180 tablet 3 03/10/2023 Active Start: 05-27-2017 Clonidine Hcl 0.3 MG tablet Active 1 {tbl} PO TWICE A DAY May 27, 2017 12:00am BLOOD PRESSURE Start: 05-27-2017 End: 04-29-2022 take 1 tablet by mouth twice daily cloNIDine HCl (CATAPRES) 0.3 mg tablet Indications: Essential hypertension Take 1 tablet by mouth twice daily. 180 tablet 3 03/01/2020 11/30/2020 Discontinued Comment on above: Take 1 tablet by preston th twice daily. Take 1 tablet by preston th two times a day. cyclobenzaprine hydrochloride 10 mg oral tablet (19 sources) Muscle Relaxant Start: 05-28-19 take 1 tablet by mouth at bedtime as needed Cyclobenzaprine 10 MG tablet Active 10 mg PO AT BEDTIME as needed for LEG CRAMPS May 27, 2017 12:00am Start: 05-27-2017 End: 06-10-2021 take 1 tablet by mouth three times daily as needed for muscle spasms cyclobenzaprine (FLEXERIL) 10 mg tablet Indications: Fibromyalgia Take 1 tablet by mouth three times daily as needed for Muscle Spasm. 90 tablet 1 05/29/2020 11/30/2020 Discontinued Comment on above: Take 1 tablet by preston th three times daily as needed for muscle spasm. Take 1 tablet by preston th daily at bedtime. famotidine 20 mg oral tablet (5 sources) Histamine-2 Receptor Antagonist Start: take 1 tablet by mouth twice daily Famotidine 20 mg tablet Active 20 mg PO TWICE A DAY 10 0 May 08, 2023 1:00am flash glucose sensor (FREESTYLE MAHESH 2 SENSOR) kit (16 sources) Start: flash glucose sensor (FREESTYLE MAHESH 2 SENSOR) kit Apply new sensor every fourteen (14) days to upper arm. 6 Each 4 10/08/2022 Active Comment on above: Apply new sensor jorge ry fourteen (14) days to upper arm. 3 ml insulin aspart, human 100 unt/ml pen injector (10 sources) Insulin Analog Start: inject 4 [IU] by subcutaneous injection three times daily before mealtime as needed, then inject 10 [IU] by subcutaneous injection once at mealtime as needed insulin aspart U-100 (NOVOLOG FLEXPEN U-100 INSULIN) 100 unit/mL (3 mL) Inject 4 Units subcutaneously three times a day before meals. Will increase as needed up to 10 units per meal 15 mL 1 04/28/2023 Active Comment on above: Inject 4 Units subcu taneously three times a day before meals. Will increase as needed up to 10 units per meal 3 ml insulin degludec 200 unt/ml pen injector (20 sources) Insulin Analog Start: 024 inject 20 [IU] by subcutaneous injection once daily at bedtime insulin degludec (TRESIBA FLEXTOUCH U-200) 200 unit/mL (3 mL) injection Indications: Type 2 diabetes mellitus with diabetic neuropathy, with long-term current use of insulin (HCC) Inject 20 Units subcutaneously daily at bedtime. 15 Each 3 04/28/2023 Active Start: 12-29-2022 End: 04-28-2023 inject 10 [IU] by subcutaneous injection once daily at bedtime insulin degludec (TRESIBA FLEXTOUCH U-200) 200 unit/mL (3 mL) injection Indications: Type 2 diabetes mellitus with diabetic neuropathy, with long-term current use of insulin (HCC) Inject 10 Units subcutaneously daily at bedtime. 15 Each 3 12/29/2022 04/28/2023 Discontinued Start: 03-27-2022 End: 12-29-2022 insulin degludec (TRESIBA FLEXTOUCH U-200) 200 unit/mL (3 mL) injection Indications: Type 2 diabetes mellitus with diabetic neuropathy, with long-term current use of insulin (HCC) Inject 56 Units subcutaneously daily at bedtime. ON HOLD FOR LOW BLOOD SUGAR 15 Each 3 12/26/2022 12/29/2022 Discontinued Start: 12-20-2021 insulin deglud ec (TRESIBA FLEXTOUCH U-200) 200 unit/mL (3 mL) injection Indications: Type 2 diabetes mellitus with diabetic neuropathy, with long-term current use of insulin (HCC) Inject 56 Units subcutaneously daily at bedtime. 10 Each 2 12/20/2021 Active Start: 09-26-2021 insulin deglud ec (TRESIBA FLEXTOUCH U-200) 200 unit/mL (3 mL) injection Indications: Type 2 diabetes mellitus with diabetic neuropathy, with long-term current use of insulin (HCC) Inject 56 Units subcutaneously daily at bedtime. 9 Pen 2 09/26/2021 Active Start: 05-29-2020 End: 04-02-2021 insulin degludec (TRESIBA FLEXTOUCH U-200) 200 unit/mL (3 mL) injection Indications: Type 2 diabetes mellitus with diabetic neuropathy, with long-term current use of insulin (HCC) Inject 56 Units subcutaneously daily at bedtime. 9 Pen 2 04/02/2021 Active Comment on above: Inject 56 Units subc utaneously daily at bedtime. Inject 56 Units subc utaneously daily at bedtime. ON HOLD FOR LOW BLOOD SUGAR Inject 10 Units subc utaneously daily at bedtime. Inject 10 Units subc utaneously daily at bedtime. ON HOLD FOR LOW BLOOD SUGAR Inject 20 Units subc utaneously daily at bedtime. Insulin Degludec (Tresiba Flextouch U-200) 200 unit/mL (3 mL) Insulin Pen (7 sources) Start: 09-21-2020 Insulin Degludec (Tresiba Flextouch U-200) 200 unit/mL (3 mL) Insulin Pen Active 56 U SC AT BEDTIME September 21, 2020 12:00am DIABETES Start: 09-21-2020 Insulin Deglud ec (Tresiba Flextouch U-200) 200 unit/mL (3 mL) Insulin Pen Active 56 U SC AT BEDTIME September 21, 2020 12:00am Start: 09-21-2020 Insulin Deglud ec (Tresiba Flextouch U-200) 200 unit/mL (3 mL) Insulin Pen Active 56 UNIT SC AT BEDTIME September 21, 2020 12:00am Start: 09-21-2020 Insulin Deglud ec (Tresiba Flextouch U-200) 200 unit/mL (3 mL) Insulin Pen Active 56 UNIT SC AT BEDTIME September 20, 2020 11:00pm iv contrast (will be provided with radiology [...] link. 1 Each 0 08/15/2022 08/16/2022 Active Comment on above: MRI foot/toes RT Inject, intravenously, once for [...] in the MR contrast administration guidelines link. magnesium chloride 535 mg delayed release oral tablet (17 sources) Start: 04-21-2023 End: 04-28-2023 take 2 tablets by mouth once daily magnesium chloride [address] tablet Take 2 tablets by mouth once daily. 90 tablet 3 04/28/2023 Active Start: 04-21-2023 Magnesium Chlo ride (Mag 64) 64 mg Tablet,Delayed Release (Dr/Ec) Active 128 mg PO DAILY 60 30 0 April 21, 2023 1:00am Comment on above: Take 2 tablets by mo [facility] once daily. Take 128 mg by mouth once daily. mecobalamin 1 mg chewable tablet (20 sources) Start: 03-11-2022 End: 04-29-2022 take 1 tablet by mouth once daily mecobalamin, vitamin B12, (B12 ACTIVE) 1,000 mcg chew Take 1 tablet by mouth once daily. 90 tablet 3 04/29/2022 Active Comment on above: Take by mouth. Take 1 tablet by [facility] once daily. methIMAzole 10 mg oral tablet (20 sources) Thyroid Hormone Synthesis Inhibitor Start: 05-08-2023 take 15 mg by mouth once daily Methimazole Active 15 MG PO DAILY 45 30 May 08, 2023 1:31pm Start: 04-22-2023 Methimazole 10 mg tablet Active 15 mg PO DAILY 45 30 1 May 08, 2023 1:31pm thyroid Start: 04-03-2023 End: 05-08-2023 take 2 tablets by mouth once daily Methimazole 10 mg tablet Discontinued 20 mg PO DAILY 60 30 0 April 21, 2023 8:33pm May 01, 2023 5:31pm thyroid Start: 04-03-2023 End: 04-21-2023 Methimazole 5 mg Tablet Disc ontinued 40 mg PO DAILY 24 3 0 April 03, 2023 1:00am April 21, 2023 8:32pm thyroid Start: 04-03-2023 End: 05-08-2023 take 20 mg by mouth once daily Methimazole Discontinue d 20 MG PO DAILY 60 30 April 21, 2023 8:33pm May 01, 2023 5:31pm Start: 04-03-2023 End: 04-21-2023 take 40 mg by mouth once daily Methimazole Discontinue d 40 MG PO DAILY 24 3 April 03, 2023 1:00am April 21, 2023 8:32pm Comment on above: Take 20 mg by mouth once daily. Take 15 mg by mouth once daily. Patient states that she is taking 10 mg plus 5mg nystatin 100 unt/mg topical powder (10 sources) Polyene Antifungal Start: nystatin (MYCOSTATIN) powder Apply 1 application to affected area two times a day. To diaper area 60 g 3 04/28/2023 Active Comment on above: Apply 1 application to affected area two times a day. To diaper area omega-3 fatty acids 1,000 mg cap (20 sources) Start: take 4 capsules by mouth once daily omega-3 fatty acids 1,000 mg cap Indications: Mixed hyperlipidemia Take 4 capsules by mouth once daily. Patient reports she is taking 4,000 mg daily 120 capsule 11 08/22/2022 Active Start: 09-26-2021 End: 08-22-2022 take 2 capsules by mouth once daily omega-3 fatty acids 1,000 mg cap Take 2 capsules by mouth once daily. 180 capsule 3 09/26/2021 08/22/2022 Discontinued Start: 09-26-2021 take 2 capsules by m outh once daily omega-3 fatty acids 1,000 mg cap Take 2 capsules by mouth once daily. 180 capsule 3 09/26/2021 Active Comment on above: Take 2 capsules by m outh once daily. Take 4 capsules by m outh once daily. Patient reports she is taking 4,000 mg daily sennosides, jail 17.2 mg oral tablet (10 sources) Start: 04-28-2023 take 1 tablet by mouth twice daily Sennosides (SENOKOT EXTRA STRENGTH) 17.2 mg tab Take 1 tablet by mouth two times a day. 180 tablet 3 04/28/2023 Active Comment on above: Take 1 tablet by preston th two times a day. vitamin k 0.1 mg oral tablet (20 sources) take 1 tablet by mouth once daily phytonadione, vit K1, (VITAMIN K) 100 mcg tablet Take 100 mcg by mouth once daily. Active Comment on above: Take 100 mcg by mout h once daily. WALKER ROLLATOR SEAT WITH 6" WHEELS - RED (20 sources) Start: 08-22-2022 WALKER ROLLATOR SEAT WITH 6" WHEELS - RED Indications: Unspecified severe protein-calorie malnutrition (HCC) , Class 3 severe obesity due to excess calories with serious comorbidity and body mass index (BMI) of 40.0 to 44.9 in adult (HCC) , Fine motor impairment , Tremor, essential , Generalized weakness Ultra-light with seat if possible, if not please give lightest possible rollator with a seat. Please send to [facility]. 1 Each 1 08/22/2022 Active Comment on above: Ultra-light with sea t if possible, if not please give lightest possible rollator with a seat. Please send to [facility]. Completed/Discontinued Medications Medication Drug Class(es) Dates Sig (Normalized) Sig (Original) acetaminophen 325 mg / HYDROcodone bitartrate 5 mg oral tablet (7 sources) Opioid Agonist Start: 11-18-2019 End: 11-21-2019 Hydrocodone-Acetami nophen 1 EACH tablet Discontinued 1 NMA PO EVERY 8 HOURS as needed for Joint Stiffness 9 3 November 18, 2019 November 20, 2019 12:00am November 21, 2019 12:02am Acute pain due to trauma Start: 11-18-2019 End: 11-21-2019 Hydrocodone-Acetaminophen Di scontinued 1 EACH PO EVERY 8 HOURS 9 3 November 18, 2019 November 21, 2019 12:02am albuterol 0.83 mg/ml inhalation solution (16 sources) beta2-Adrenergic Agonist Start: 05-28-2017 End: 03-31-2023 take 2.5 mg by inhalation every four hours as needed for wheezing Albuterol Sulfate 2.5 MG/3 ML solution for nebulization Discontinued 2.5 mg INHALATION Q4H as needed for SHORTNESS OF BREATH/WHEEZING May 28, 2017 12:00am March 31, 2023 4:19pm Start: 05-28-2017 End: 03-31-2023 Albuterol Sulfate (Ventolin Hfa) 1 INHALER inhaler Discontinued 2 NMA INHALATION Q4H as needed for SHORTNESS OF BREATH/WHEEZING May 28, 2017 12:00am March 31, 2023 4:19pm Start: 05-28-2017 End: 03-31-2023 take 1 puff(s) by inhalation every four hours Albuterol Sulfate (Ventolin Hfa) 1 INHALER inhaler Discontinued 2 PUFF INHALATION Q4H May 28, 2017 12:00am March 31, 2023 4:19pm Start: 05-28-2017 End: 03-31-2023 take 1 puff(s) by inhalation every four hours Albuterol Sulfate (Ventolin Hfa) 1 INHALER inhaler Discontinued 2 PUFF INHALATION Q4H May 27, 2017 11:00pm March 31, 2023 3:19pm Start: 01-11-2014 End: 06-10-2021 take 2 puff(s) by inhalation every four hours as needed albuterol HFA (VENTOLIN HFA) 90 mcg/actuation inhaler Indications: Unspecified asthma(493.90) Inhale 2 Puffs as instructed every 4 hours as needed. 1 Inhaler 3 01/11/2014 06/10/2021 Discontinued Comment on above: Inhale 2 Puffs as in structed every 4 hours as needed. amiodarone hydrochloride 200 mg oral tablet (20 sources) Antiarrhythmic Start: 04-03-19 24 End: 05-04-19 24 take 1 tablet by mouth once daily Amiodarone 200 mg Tablet Discontinued 200 mg PO DAILY 30 30 0 April 21, 2023 8:33pm May 04, 2023 10:45am afib Start when BID amiodarone is completed Start: 04-03-2023 End: 04-21-2023 take 1 tablet by mouth twice daily Amiodarone 200 mg Tablet Discontinued 200 mg PO TWICE A DAY 0 5 0 April 03, 2023 1:00am April 21, 2023 8:31pm afib Comment on above: Take 1 tablet by preston th once daily. apixaban 5 mg oral tablet (20 sources) Factor Xa Inhibitor Start: 4 End: take 1 tablet by mouth twice daily Apixaban (Eliquis) 5 mg Tablet Discontinued 5 mg PO TWICE A DAY 60 30 0 April 21, 2023 8:33pm May 04, 2023 10:47am blood thinner Comment on above: Take 1 tablet by preston th two times a day. Take 5 mg by mouth t wo times a day. aspirin 81 mg delayed release oral tablet (20 sources) Platelet Aggregation Inhibitor, Nonsteroidal Anti-inflammatory Drug Start: End: Aspirin (Adult Low Dose Aspirin) 81 mg tablet,delayed release (DR/EC) Discontinued 81 mg PO DAILY March 31, 2023 1:00am April 21, 2023 8:32pm [employer] Start: 05-27-2017 End: 03-31-2023 Aspirin (Aspir-Low) 81 MG tablet,delayed release (DR/EC) Discontinued 1 {tbl} PO TWICE A DAY May 27, 2017 12:00am March 31, 2023 1:40pm Start: 05-27-2017 End: 03-31-2023 take 1 tablet by mouth twice daily Aspirin (Aspir-Low) 81 MG tablet,delayed release (DR/EC) Discontinued 1 TABLET PO TWICE A DAY May 27, 2017 12:00am March 31, 2023 1:40pm Start: 02-11-2013 take 1 tablet by preston th once daily at mealtime Aspirin 81 mg tab Take 1 tablet by mouth once daily. Take with food. 02/11/2013 Active Comment on above: Take 1 tablet by preston th once daily. Take with food. Blood-Glucose Meter,Continuous (DEXCOM G7 EXPERIMENTAL PHYSICIST) mis (6 sources) Start: 08-22-2022 End: 10-08-2022 Blood-Glucose Meter,Continuous (DEXCOM G7 EXPERIMENTAL PHYSICIST) [facility] [place] Indications: Type 2 diabetes mellitus with diabetic neuropathy, with long-term current use of insulin (HCC) , Diabetes mellitus with insulin therapy (HCC) , Fine motor impairment , Tremor, essential Use to check blood sugar at least four (4) times daily. 1 Each 0 08/22/2022 10/08/2022 Discontinued Start: 08-22-2022 Blood-Glucose Meter,Continuous (DEXCOM G7 EXPERIMENTAL PHYSICIST) [facility] [place] Indications: Type 2 diabetes mellitus with diabetic neuropathy, with long-term current use of insulin (HCC) , Diabetes mellitus with insulin therapy (HCC) , Fine motor impairment , Tremor, essential Use to check blood sugar at least four (4) times daily. 1 Each 0 08/22/2022 Active Comment on above: Use to check blood s ugar at least four (4) times daily. Blood-Glucose Sensor (DEXCOM G7 SENSOR) gerard (6 sources) Start: 08-22-2022 End: 10-08-2022 Blood-Glucose Sensor (DEXCOM G7 SENSOR) gerard Indications: Type 2 diabetes mellitus with diabetic neuropathy, with long-term current use of insulin (HCC) , Diabetes mellitus with insulin therapy (HCC) , Fine motor impairment , Tremor, essential Apply new sensor every ten (10) days. 9 Each 3 08/22/2022 10/08/2022 Discontinued Start: 08-22-2022 Blood-Glucose Sensor (DEXCOM G7 SENSOR) gerard Indications: Type 2 diabetes mellitus with diabetic neuropathy, with long-term current use of insulin (HCC) , Diabetes mellitus with insulin therapy (HCC) , Fine motor impairment , Tremor, essential Apply new sensor every ten (10) days. 9 Each 3 08/22/2022 Active Comment on above: Apply new sensor jorge ry ten (10) days. busPIRone hydrochloride 30 mg oral tablet (7 sources) Start: 05-29-19 End: 03-31-19 take 1 tablet by mouth twice daily Buspirone 30 MG tablet Discontinued 30 mg PO TWICE A DAY May 28, 2017 12:00am March 31, 2023 4:19pm ANXIETY carbidopa 25 mg / levodopa 100 mg oral tablet (20 sources) Aromatic Amino Acid Decarboxylation Inhibitor, Aromatic Amino Acid Start: 08-21-19 End: 11-19-19 take 1.5 tablets by mouth three times daily, then take 1.5 tablets by mouth once daily, then take 1.5 tablets by mouth once daily, then take 1.5 tablets by mouth once daily carbidopa-levodopa CR (SINEMET CR) 25-100 mg per tablet Take 1.5 tablets by mouth three times daily. Take 1.5 tablet daily at 7am, 1.5 tablet daily at 1pm, and 1.5 tablet daily at 7pm. 405 tablet 0 08/20/2022 08/22/2022 Discontinued Start: 11-28-2021 End: 04-28-2023 take 1.5 tablets by mouth three times daily carbidopa-levodopa (SINEMET) 25-100 mg per tablet Take 1.5 tablets by mouth three times daily. 405 tablet 0 08/22/2022 04/28/2023 Discontinued (Allergic response) Comment on above: Take 0.5 tablets by mouth three times daily. Take 1 tablet by preston th three times daily. TAKE 1 TABLET BY PRESTON TH THREE TIMES A DAY Take 1 tablet by preston th three times daily. Take one tablet at 7am, 1pm, and 7pm. Take 1.5 tablets by mouth three times daily. Take one tablet at 7am, 1pm, and 7pm. Take 1.5 tablets by mouth three times daily. Take 1.5 tablet daily at 7am, 1.5 tablet daily at 1pm, and 1.5 tablet daily at 7pm. Take 1.5 tablets by mouth three times daily. diclofenac sodium 75 mg delayed release oral tablet (20 sources) Nonsteroidal Anti-inflammatory Drug Start: 03-31-2023 End: 04-21-2023 Diclofenac Sodium 75 mg tablet,delayed release (DR/EC) Discontinued 75 mg PO .COMPLEX March 31, 2023 1:00am April 21, 2023 8:32pm arthritic pain 75 mg orally bid for 2 days, then none for 3 days; Start: 04-03-2022 End: 08-22-2022 take 1 tablet by mouth twice daily for pain diclofenac, EC, (VOLTAREN) 75 mg EC tablet Take 1 tablet by mouth twice daily. For pain/inflammation. Take with food. 180 tablet 3 04/29/2022 08/22/2022 Discontinued Start: 02-10-2022 End: 04-03-2022 take 1 tablet by mouth twice daily diclofenac XR (VOLTAREN-XR) 100 mg Tb24 Take 1 tablet by mouth twice daily. 60 tablet 3 02/10/2022 04/03/2022 Discontinued Start: 10-11-2020 End: 02-10-2022 take 1 tablet by mouth twice daily for pain diclofenac, EC, (VOLTAREN) 75 mg EC tablet Take 1 tablet by mouth twice daily. For pain/inflammation. Take with food. 90 tablet 3 10/10/2021 02/10/2022 Discontinued Comment on above: Take 1 tablet by preston th twice daily. For pain/inflammation. Take with food. Take 1 tablet by preston twice daily. diphenhydrAMINE hydrochloride 25 mg oral capsule (7 sources) Histamine-1 Receptor Antagonist Start: 2023 End: 2023 take 2 capsules by mouth at bedtime Diphenhydramine Hcl (Allergy (Diphenhydramine)) 25 mg capsule Discontinued 50 mg PO AT BEDTIME March 31, 2023 1:00am April 21, 2023 8:32pm insomnia and allergies flash glucose scanning reader (FREESTYLE MAHESH 2 READER) (1 source) Start: 2022 End: 2022 flash glucose scanning reader (FREESTYLE MAHESH 2 READER) Use to check blood sugar at least four (4) times daily. 1 Each 0 10/08/2022 10/09/2022 Comment on above: Use to check blood s ugar at least four (4) times daily. gabapentin 100 mg oral capsule (1 source) Anti-epileptic Agent Start: 2021 End: 2021 take 1 capsule by mouth once daily at bedtime for anxiety gabapentin (NEURONTIN) 100 mg capsule Indications: Anxiety , Tremor, essential Take 1 capsule by mouth daily at bedtime for 180 days. for tremor and anxiety 30 capsule 5 04/02/2021 06/10/2021 Discontinued Comment on above: Take 1 capsule by mo [facility] daily at bedtime for 180 days. for tremor and anxiety ibuprofen 800 mg oral tablet (14 sources) Nonsteroidal Anti-inflammatory Drug Start: 2023 End: 2023 take 1 tablet by mouth once daily as needed for headache Ibuprofen (Ibu) 800 mg tablet Discontinued 800 mg PO DAILY as needed for headache March 31, 2023 1:00am April 21, 2023 8:32pm Start: 11-18-2019 End: 03-31-2023 take 1 tablet by mouth three times daily as needed for pain Ibuprofen 800 MG tablet Discontinued 800 mg PO THREE TIMES A DAY as needed for Pain Score -12/09November 18, 2019 12:00am March 31, 2023 4:19pm levETIRAcetam 250 mg oral tablet (4 sources) Start: 08-09-2021 End: 11-28-2021 take 1 tablet by mouth twice daily at dinner levETIRAcetam (KEPPRA) 250 mg tablet Take 1 tablet by mouth twice daily. (Breakfast and Dinner) 60 tablet 2 08/09/2021 11/28/2021 Discontinued Comment on above: Take 1 tablet by preston twice daily. (Breakfast and Dinner) magnesium citrate and oxide (MAGNESIUM CITRATE,MAG OXIDE) 250 mg cap (12 sources) End: 04-28-2023 take 2 capsules by mouth twice daily magnesium citrate and oxide (MAGNESIUM CITRATE,MAG OXIDE) 250 mg cap Take 2 capsules by mouth twice daily. 0 04/28/2023 Discontinued take 2 capsules by mouth twice d aily magnesium citrate and oxide (MAGNESIUM CITRATE,MAG OXIDE) 250 mg cap Take 2 capsules by mouth twice daily. 0 Active Comment on above: Take 2 capsules by m out twice daily. metFORMIN hydrochloride 1000 mg oral tablet (20 sources) Biguanide Start: 8 End: 4 take 1 tablet by mouth twice daily Metformin 1,000 MG tablet Discontinued 1000 mg PO TWICE A DAY May 27, 2017 12:00am March 31, 2023 4:20pm DIABETES Comment on above: Take 1 tablet by preston twice daily. methenamine hippurate 1000 mg oral tablet (20 sources) Start: 2 End: 3 take 1 tablet by mouth twice daily at mealtime Methenamine Hippurate (HIPREX) 1 gram tablet Indications: Dysuria Take 1 tablet by mouth twice daily with meals. 180 tablet 3 04/29/2022 08/22/2022 Discontinued (Side Effects) Start: 09-25-2020 End: 04-02-2021 take 1 tablet by mouth twice daily at mealtime Methenamine Hippurate (HIPREX) 1 gram tablet Indications: Dysuria Take 1 tablet by mouth twice daily with meals. 180 tablet 3 09/25/2020 04/02/2021 Discontinued Comment on above: Take 1 tablet by preston twice daily with meals. metoprolol tartrate 25 mg oral tablet (20 sources) beta-Adrenergic Jarocho Start: 04-03-2023 End: 05-04-2023 take 1 tablet by mouth twice daily Metoprolol Tartrate 25 mg Tablet Discontinued 25 mg PO TWICE A DAY 60 30 0 April 21, 2023 8:33pm May 04, 2023 10:47am heart/pulse Comment on above: Take 1 tablet by preston th two times a day. Take 25 mg by mouth two times a day. omega-3 fatty acids (FISH OIL MINI 1290 MG SOFTGEL) (18 sources) Start: 09-26-2021 End: 08-22-2022 omega-3 fatty acids (FISH OIL MINI 1290 MG SOFTGEL) Take 2,000 mg by mouth once daily. 90 capsule 11 09/26/2021 08/22/2022 Discontinued Start: 09-26-2021 omega-3 fatty acids (FISH OIL MINI 1290 MG SOFTGEL) Take 2,000 mg by mouth once daily. 90 capsule 11 09/26/2021 Active Start: 06-10-2021 omega-3 fatty acids (FISH OIL MINI 1290 MG SOFTGEL) Take 2,000 mg by mouth once daily. 0 06/10/2021 Active Comment on above: Take 2,000 mg by preston th once daily. 24 hr oxybutynin chloride 15 mg extended release oral tablet (20 sources) Cholinergic Muscarinic Antagonist Start: End: take 1 tablet by mouth twice daily Oxybutynin Chloride 15 mg tablet extended release 24hr Discontinued 15 mg PO TWICE A DAY March 31, 2023 1:00am April 03, 2023 12:46pm OVERACTIVE BLADDER Start: 11-14-2022 take 1 tablet by preston twice daily oxybutynin ER (DITROPAN XL) 15 mg 24 hr Extended Rel Tab Take 1 tablet by mouth twice daily. 180 tablet 3 11/14/2022 Active Start: 01-21-2022 End: 04-29-2022 take 1 tablet by mouth twice daily oxybutynin ER (DITROPAN XL) 15 mg 24 hr Extended Rel Tab Take 1 tablet by mouth twice daily. 180 tablet 3 04/29/2022 Active Comment on above: Take 15 mg by mouth twice daily. Take 1 tablet by preston twice daily. Take 1 tablet by preston th two times a day. predniSONE 20 mg oral tablet (5 sources) Start: 05-08-2023 End: 06-15-2023 take 2 tablets by mouth once daily Prednisone 20 mg tablet Discontinued 40 mg PO DAILY 8 May 08, 2023 1:00am June 15, 2023 1:00pm Next dose 05/09/2023 Start: 05-08-2023 take 40 mg by mouth once daily Prednisone Active 40 MG PO DAILY May 08, 2023 1:00am Next dose 05/09/2023 Problems Active Problems Problem Classification Problem Date Documented Da te Episodic/Chronic Acquired foot deformities (1 source) Hammer toe; Translations: [Other hammer toe(s) (acquired), right foot] 05-11-2023 Chronic Acute and chronic tonsillitis (7 sources) Tonsillitis; Translations: [Acute tonsillitis, unspecified] 12-31-2018 Episodic Allergic reactions (5 sources) Allergic reaction; Translations: [Allergy, unspecified, initial encounter] 05-08-2023 Episodic Anxiety disorders (20 sources) Panic disorder with agoraphobia; Translations: [Agoraphobia with panic disorder] Onset: 6 11-05-2005 Chronic Asthma (20 sources) Asthma; Translations: [Unspecified asthma, uncomplicated] Onset: 6 Chronic Cardiac dysrhythmias (20 sources) Atrial tachycardia; Translations: [Atrial tachycardia] 03-31-2023 Chronic Cataract (20 sources) Bilateral cortical age-related cataract eyes; Translations: [Cortical age-related cataract, bilateral] Onset: 9 11-04-2018 Chronic Diabetes mellitus with complications (20 sources) Type 2 diabetes mellitus; Translations: [Type 2 diabetes mellitus with diabetic neuropathy, unspecified] Onset: 6 Resolved: 5 Chronic Diabetes mellitus without complication (20 sources) Insulin treated type 2 diabetes mellitus; Translations: [Type 2 diabetes mellitus without complications] Onset: 5 05-23-2019 Chronic Disorders of lipid metabolism (20 [...] Onset: 8 11-03-2017 Chronic Malaise and fatigue (15 sources) Asthenia; Translations: [Weakness] Episodic Menopausal disorders (20 sources) Atrophic vaginitis; Translations: [Postmenopausal atrophic vaginitis] Onset: 8 02-09-2008 Chronic Mood disorders (20 sources) Depressive disorder; Translations: [Depression] Onset: 6 Resolved: 0 04-03-2023 Chronic Osteoarthritis (20 sources) Degenerative joint disease involving multiple joints; Translations: [Polyosteoarthritis, unspecified] Onset: 6 04-21-2018 Chronic Other aftercare (3 sources) Anticoagulant effect; Translations: [terminal superintendent (current) use of anticoagulants] 07-29-2024 Episodic Other and unspecified benign neoplasm (7 sources) History of polyp of colon; Translations: [Personal history of colonic polyps] 12-31-2018 Episodic Other connective tissue disease (20 sources) Fibromyalgia; Translations: [Fibromyalgia] Onset: 6 01-02-2016 Episodic Other connective tissue disease (1 source) Weakness of face muscles; Translations: [Facial weakness] Episodic Other connective tissue disease (1 source) Mass of soft tissue; Translations: [Other specified soft tissue disorders] Episodic Other connective tissue disease (1 source) Fine motor impairment ; Translations: [Other symptoms and signs involving the nervous system] Episodic Other connective tissue disease (4 sources) Synovial cyst of knee; Translations: [Synovial cyst of popliteal space [Dumont], unspecified knee] 11-19-2019 Episodic Other connective tissue disease (7 sources) Recurrent falls ; Translations: [Repeated falls] 03-31-2023 Episodic Other connective tissue disease (7 sources) Repeated falls; Translations: [History of fall] 04-03-2023 Episodic Other connective tissue disease (6 sources) Cramp in lower limb; Translations: [Cramp and spasm] 04-03-2023 Episodic Other connective tissue disease (3 sources) Cramp and spasm; Translations: [Cramp of limb] 04-23-2023 Episodic Other connective tissue disease (1 source) Pain in right foot; Translations: [Pain in right foot] 10-26-2020 Episodic Other connective tissue disease (3 sources) Synovial cyst of popliteal space [Dumont], unspecified knee; Translations: [Synovial cyst of popliteal space] 11-19-2019 Episodic Other diseases of bladder and urethra (6 sources) Overactive bladder; Translations: [Overactive bladder] 04-03-2023 Chronic Other diseases of bladder and urethra (3 sources) Overactive bladder; Translations: [Hypertonicity of bladder] 04-23-2023 Chronic Other endocrine disorders (1 source) Hypoglycemia; Translations: [Hypoglycemia, unspecified] 12-26-2022 Chronic Other eye disorders (20 sources) Bilateral vitreous floaters; Translations: [Other vitreous opacities, bilateral] Onset: 8 11-03-2017 Chronic Other gastrointestinal disorders (20 sources) Irritable bowel syndrome; Translations: [Irritable bowel syndrome without diarrhea] Onset: 6 11-05-2005 Chronic Other gastrointestinal disorders (3 sources) Constipation; Translations: [Constipation, unspecified] 07-29-2024 Episodic Other hereditary and degenerative nervous system conditions (4 sources) Essential tremor; Translations: [Essential tremor] Chronic Other hereditary and degenerative nervous system conditions (20 sources) System disorder of the nervous system; Translations: [Other specified extrapyramidal and movement disorders] Onset: 6 02-09-2006 Chronic Other injuries and conditions due to external causes (7 sources) Closed injury of head; Translations: [Unspecified injury of head, initial encounter] 09-21-2020 Episodic Other injuries and conditions due to external causes (1 source) Other specified injuries of thorax, initial encounter; Translations: [Contusion of rib on left side] 08-23-2024 Episodic Other lower respiratory disease (1 source) Pleurodynia; Translations: [Pleurodynia] Onset: Episodic Other nervous system disorders (20 sources) Carpal [...] 5 01-22-2015 Chronic Other nervous system disorders (12 sources) Tremor; Translations: [Tremor, unspecified] Episodic Other nervous system disorders (7 sources) Tremor, unspecified; Translations: [Abnormal involuntary movements] 04-03-2023 Episodic Other non-traumatic joint disorders (7 sources) Pain in right knee; Translations: [Acute pain of right knee] 09-21-2020 Episodic Other nutritional; endocrine; and metabolic disorders (20 sources) Body mass index 40+ - severely obese; Translations: [Morbid (severe) obesity due to excess calories] Onset: 8 Resolved: 4 05-23-2019 Chronic Other nutritional; endocrine; and metabolic disorders (2 sources) Severe obesity; Translations: [Morbid (severe) obesity due to excess calories] Chronic Other screening for suspected conditions (not mental disorders or infectious disease) (1 source) Radiology result abnormal; Translations: [Abnormal findings on diagnostic imaging of other specified body structures] 10-18-2024 Chronic Other screening for suspected conditions (not mental disorders or infectious disease) (16 sources) Patient encounter status; Translations: [Encounter for screening mammogram for malignant neoplasm of breast] Episodic Other skin disorders (1 source) Keratosis; Translations: [Epidermal thickening, unspecified] Episodic Other skin disorders (1 source) Callosity; Translations: [Corns and callosities] Episodic Other upper respiratory disease (3 sources) Feeling of lump in throat; Translations: [Globus sensation] 01-01-2024 Episodic Otitis media and related conditions (7 sources) Otitis media; Translations: [Otitis media, unspecified, unspecified ear] 12-31-2018 Episodic Residual codes; unclassified (20 sources) Sleep apnea; Translations: [Sleep apnea, unspecified] Onset: 6 11-05-2005 Chronic Residual codes; unclassified (20 sources) Obstructive sleep apnea syndrome; Translations: [Obstructive sleep apnea (adult) (pediatric)] Onset: 5 01-22-2015 Chronic Comment on above: not wearing CPAP or BIPAP Residual codes; unclassified (1 source) Needs assistance with community resources; Translations: [Other specified health status] Episodic Residual codes; unclassified (20 sources) Other specified health status; Translations: [Other drug allergy] 11-28-2014 Episodic Residual codes; unclassified (1 source) Menopause present; Translations: [Asymptomatic menopausal state] 10-29-2023 Episodic Skin and subcutaneous tissue infections (7 sources) Paronychia; Translations: [Paronychia] 05-27-2017 Episodic Spondylosis; intervertebral disc disorders; other back problems (4 sources) Acute low back pain; Translations: [Acute low back pain] Onset: 07-29-2024 Episodic Sprains and strains (1 source) Strain of thoracic region; Translations: [Strain of muscle and tendon of unspecified wall of thorax, initial encounter] 10-18-2024 Episodic Superficial injury; contusion (14 sources) Contusion of lower back; Translations: [Contusion of lower back and pelvis, initial encounter] 03-31-2023 Episodic Thyroid disorders (8 sources) Hyperthyroidism; Translations: [Thyrotoxicosis, unspecified without thyrotoxic crisis or storm] 04-29-2023 Chronic Transient cerebral ischemia (2 sources) Cerebral ischemia; Translations: [Transient cerebral ischemic attack, unspecified] Chronic Unclassified (10 sources) Parkinson's disease; Translations: [Parkinson's disease] 04-03-2023 Chronic Unclassified (1 source) Low back pain, unspecified; Translations: [Low back pain, unspecified] Onset: Past or Other Problems Problem Classification Problem Date Documented Date Episodic/Chronic Coagulation and hemorrhagic disorders (18 sources) Platelet count below reference range; Translations: [Thrombocytopenia, unspecified] Onset: 08-22-2022 Resolved: 04-29-2023 Chronic Esophageal disorders (20 sources) Esophagitis; Translations: [Esophagitis, unspecified] Onset: 01-07-2012 01-07-2012 Episodic Gastritis and duodenitis (7 sources) Acute gastritis; Translations: [Acute gastritis without bleeding] Onset: 01-07-2012 Resolved: 05-23-2019 05-23-2019 Episodic Genitourinary symptoms and ill-defined conditions (20 sources) Urgent desire to urinate; Translations: [Urgency of urination] Onset: 02-09-2008 02-09-2008 Episodic Hemorrhoids (20 sources) Internal hemorrhoids; Translations: [Other hemorrhoids] Onset: 11-05-2005 04-02-2015 Episodic Nutritional deficiencies (20 sources) Vitamin D deficiency; Translations: [Vitamin D deficiency, unspecified] Onset: 08-15-2022 Resolved: 04-29-2023 Chronic Other and unspecified benign neoplasm (20 sources) Benign neoplasm of colon; Translations: [Benign neoplasm of colon, unspecified] Onset: 01-07-2012 01-07-2012 Episodic Other circulatory disease (1 source) Other specified symptoms and signs involving the circulatory and respiratory systems; Translations: [Other specified symptoms and signs involving the circulatory and respiratory systems] Onset: 01-14-2024 Episodic Other connective tissue disease (20 sources) Impingement syndrome of left shoulder region; Translations: [Impingement syndrome of left shoulder] Onset: 05-13-2016 05-13-2016 Episodic Other connective tissue disease (7 sources) Impingement syndrome of right shoulder region; Translations: [Impingement syndrome of right shoulder] Onset: 01-02-2011 Resolved: 07-02-2011 07-02-2011 Episodic Other connective tissue disease (7 sources) Calcific tendinitis of right shoulder; Translations: [Calcific tendinitis of right shoulder] Onset: 01-02-2011 Resolved: 07-02-2011 07-02-2011 Episodic Other connective tissue disease (7 sources) Bursitis of left shoulder; Translations: [Bursitis of left shoulder] Onset: 02-16-2011 Resolved: 07-02-2011 07-02-2011 Episodic Other female genital disorders (20 sources) Vulval and/or perineal noninflammatory disorders; Translations: [Noninflammatory disorder of vulva and perineum, unspecified] Onset: 02-09-2008 02-09-2008 Episodic Other non-traumatic joint disorders (7 sources) Pain in left shoulder; Translations: [Pain in joint, shoulder region] Onset: 05-13-2016 Resolved: 05-23-2019 05-23-2019 Episodic Residual codes; unclassified (20 sources) Edema; Translations: [Edema, unspecified] Onset: 11-05-2005 11-05-2005 Episodic Results Test Name Value Interpretation Reference Range Facility Emergency Department Summary on 10-18-2024 Emergency Department Summary [facility] Medical Records Department [address] [place] [address] Emergency Department Summary 10/18/24 MR#: [id number] Acct: [id number] Name: TIFFANIE VILLAFANA Rep #: [id number] : 1955 69 From: Luis Mcdonald MD PCP: Dr. Pb Wallace MD Status:REG ER Location: ED HPI History of Present Illness Chief Complaint: Other, Pain/Inj Informant: patient and EMS Narrative Narrative: 69-year-old female was sent for abnormal x-rays of her neck that were done at her apartment as an outpatient showing fractures. Patient states she has had no fall to explain this, she had pain in her upper back between her shoulder blades that started 4 days ago upon waking up. She woke up with the pain. When she went to bed the previous night she did not have the pain; just pain in her low back which she states is chronic and no different today. She states has been having some numbness and tingling that is coming and going and all of the fingers of her left hand for the last 2 weeks or more. That is not present right now. She states despite having no pain in her neck and having some pain in her upper back in the middle, outpatient cervical spine x-rays only were done, and she is surprised that they were abnormal because she is having no neck pain. The last time she fell was 2 months ago, she was seen here, was across a bathtub she injured her rib and had no neck or acute/new back pain at that time, which she confirms. She denies any other systemic symptoms right now or illness. She is in a wheelchair most of the time due to Parkinson's, she has a walker that she occasionally uses, she lives in an apartment that she basically does not leave for the most part and has family and an aide that help her. [facility] Medical History Paroxysmal atrial flutter Thyrotoxicosis due to Graves' disease Anxiety Depression Diabetes Non-smoker Asthma History of left heart catheterization Hyperlipidemia Hypertension Tremor Home Medications ???Medication ???Instructions ???Recorded ???Last Taken ???Type amlodipine 10 mg tablet 1 tab PO DAILY BLOOD PRESSURE 05/0104/03/23 History clonidine HCl 0.3 mg tablet 1 tab PO BID BLOOD PRESSURE 04/03/23 History cyclobenzaprine 10 mg tablet 10 mg PO QHS PRN LEG CRAMPS 04/02/23 History insulin degludec 200 unit/mL (3 56 unit subcut QHS DIABETES Unknown History mL) subcutaneous pen (Tresiba FlexTouch U-200 insulin) acetaminophen 500 mg tablet 1,000 mg (2 x 500 mg) PO Q6H PRN 0 04/21/23 Unknown Rx PRN Pain Score 1-10 #0 tabs magnesium chloride 64 mg 128 mg (2 x 64 mg) PO DAILY 30 Unknown Rx (magnesium chloride) days #60 tabs tablet,delayed release (Mag 64) oxybutynin chloride 15 mg 15 mg PO BID 05/01/23 Unknown Hist ory tablet,extended release 24 hr apixaban 5 mg tablet (Eliquis) 5 mg PO BID blood thinner #180 tab s 05/04/23 Unknown Rx metoprolol tartrate 25 mg tablet 25 mg PO BID heart/pulse #180 tabs 05/04/23 Unknown Rx famotidine 20 mg tablet 20 mg PO BID #10 TABLETS 05/08/23 Unknown Rx methimazole 10 mg tablet 15 mg (1.5 x 10 mg) PO DAILY 05/07 Unknown Rx thyroid 30 days #45 tabs Allergy/AdvReac Type Severity Reaction Status Date / Time adhesive tape Allergy Other Verified 10/18/24 17:23 apple Allergy Swelling Verified 10/18/24 17:23 cephalexin monohydrate (From Allergy Other Verified 10/18/24 17:23 Keflex) ciprofloxacin (From Cipro) Allergy Hives Verified 10/18/24 17:23 ciprofloxacin HCl (From Allergy Hives Verified 10/18/24 17:23 Cipro) citalopram hydrobromide Allergy Unknown Verified 10/18/24 17:23 (From Celexa) clarithromycin (From Biaxin) Allergy Unknown Verified 10/18/24 17:23 codeine Allergy Unknown Verified 10/18/24 17:23 diltiazem HCl (From Cardizem) Allergy Unknown Verified 10/18/24 17:23 fluoxetine HCl (From Prozac) Allergy Unknown Verified 10/18/24 17:23 fluticasone (From Advair Allergy Swelling Verified 10/18/24 17:23 Diskus) fluticasone propionate (From Allergy Other Verified 10/18/24 17:23 Advair Diskus) hydrochlorothiazide (From Allergy Unknown Verified 10/18/24 17:23 Hyzaar) ipratropium bromide (From Allergy Unknown Verified 10/18/24 17:23 Atrovent) labetalol Allergy Rash Verified 10/18/24 17:23 lamotrigine (From Lamictal) Allergy Unknown Verified 10/18/24 17:23 latex Allergy Unknown Verified 10/18/24 17:23 liraglutide (From Victoza) Allergy Unknown Verified 10/18/24 17:23 losartan potassium (From Allergy Unknown Verified 10/18/24 17:23 Hyzaar) meloxicam (From Mobic) Allergy Other Verified 10/18/24 17:23 nitrofurantoin (From Allergy Hives Verified 10/18/24 17:23 Macrobid) nitrofurantoin Allergy Hives Ve (more content not included)... Normal [facility] Spine Cervical without Contr ason 10-18-2024 Spine Cervical without Contras [facility] Imaging Services [address] [place] [address] Spine Cervical without Contras MR#: [id number] Acct: [id number] Name: TIFFANIE VILLAFANA Rep #: [id number] : 1955 F 69 From: Ger Emanuel MD PCP: Dr. Pb Wallace MD Status: REG ER Study: Spine Cervical without Contras Date of Exam: 0 10/18/24 Exam# [id number] Ordering Dr: Luis Mcdonald MD PROCEDURE: CT SPINE CERVICAL WITHOUT CONTRAS 10/18/2024 REASON FOR EXAM: ABNORMAL OUPT XR SHOWING FRACTURES TECHNIQUE: CT SPINE CERVICAL WITHOUT CONTRAS Coronal and Sagittal reconstruction series were provided. One or more dose reduction techniques were used (e.g., Automated exposure control, adjustment of the mA and/or kV according to patient size, use of iterative reconstruction technique. RADIATION DOSE SUMMARY: DLP: 1968.99 mGycm COMPARISON: None. FINDINGS: No acute fracture or subluxation. Straightening and slight reversal of the cervical lordosis is likely positional and/or degenerative in nature. Mild multilevel spondylotic changes with varying degrees of disc space narrowing, anterior osteophytosis, uncovertebral spurring and hypertrophic facet arthropathy. No prevertebral soft tissue swelling. Retropharyngeal course of the bilateral carotid arteries noted, with atherosclerotic vascular calcifications. Prominent enlarged heterogeneous nodular thyroid gland with parenchymal calcifications. Mild rightward deviation of the trachea. Clear lung apices. CT/Spine Cervical without Contras IMPRESSION: 1. No acute cervical spine fracture or traumatic malalignment. 2. Mild multilevel spondylotic changes, as described. 3. Enlarged heterogeneous nodular thyroid; ultrasound may further characterize. Reading Location: [id number] CC: Dr. Luis Mcdonald MD; Dr. Pb Wallace MD 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: Signed Normal [facility] Spine Thoracic without Contr ason 10-18-2024 Spine Thoracic without Contras [facility] Imaging Services [address] [place] [address] [id number] Spine Thoracic without Contras MR#: [id number] Acct: [id number] Name: TIFFANIE VILLAFANA Rep #: [id number] : 1955 F 69 From: Ger Emanuel MD PCP: Dr. Pb Wallace MD Status: REG ER Study: Spine Thoracic without Contras Date of Exam: 0 10/18/24 Exam# [id number] Ordering Dr: Luis Mcdonald MD PROCEDURE: CT SPINE THORACIC WITHOUT CONTRAST 10/18/2024 REASON FOR EXAM: PAIN UPPER T-SP, REMOTE FALL TECHNIQUE: CT SPINE THORACIC WITHOUT CONTRAS Coronal and Sagittal reconstruction series were provided. One or more dose reduction techniques were used (e.g., Automated exposure control, adjustment of the mA and/or kV according to patient size, use of iterative reconstruction technique). RADIATION DOSE SUMMARY: DLP: 1968.99 mGycm COMPARISON: No prior T-spine imaging. Abdominal CT 07/29/2024. FINDINGS: No evidence of acute fracture or subluxation. Alignment is anatomic. Preserved vertebral body heights. Mild multilevel spondylotic changes without any substantial spinal canal or osseous neural foraminal narrowing appreciated. No aggressive osseous lytic or blastic lesion. Unremarkable paravertebral soft tissues. Mild-moderate atherosclerotic vascular calcifications. Visualized lung roger are clear. Stable appearing small bilateral adrenal nodules, likely benign fatty adenomas. CT/Spine Thoracic without Contras IMPRESSION: No acute fracture or malalignment. Mild spondylotic changes. Reading Location: [id number] CC: Dr. Luis Mcdonald MD; Dr. Pb Wallace MD 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: Signed Normal [facility] Emergency Department Summary on 08-15-2024 Emergency Department Summary [facility] Medical Records Department [address] [place] [address] Emergency Department Summary 08/15/24 MR#: [id number] Acct: [id number] Name: TIFFANIE VILLAFANA Rep #: [id number] : 1955 69 From: Wellington Law DO PCP: CLEMENCIA MILLER Status:DEP ER Location: ED HPI HPI - Fall History of Present Illness Chief Complaint: Fall Narrative Narrative: Chief complaint and HPI: Mechanical fall with left rib pain. 69-year-old female with past medical history of Parkinson's, HTN, HLD, DM2, proximal atrial fibrillation on anticoagulation presents for evaluation of mechanical fall with left rib pain. Patient states she uses a rollator walker as well as a electric wheelchair in her house. She states that she had just had a bowel movement when she states she tried to get into the shower to clean herself off. She states she lost her balance getting into the shower in which she fell onto her bilateral knees. She states she also hit her left lateral chest on her shower chair. She states that she could not get off her knees secondary to weakness and therefore EMS was called. Patient denies hitting her head or neck. States she specifically landed on her bilateral knees. She denies any lightheadedness, vision changes, syncope, fever, chills, shortness of breath, chest pain abdominal pain, nausea, vomiting, dysuria, diarrhea, constipation. She states that it was purely a mechanical fall. States that she is only here because she is having left lateral rib pain and wants to make sure she did not break her rib. Review of systems: See HPI Medications: As listed on the chart Allergies: As listed on the chart PFSH: Per chart Vital signs: As listed on the chart. Reviewed. Physical exam: Gen: A O x4, NAD Head: Normocephalic, atraumatic Eyes: No sclera icterus, conjunctiva clear, PERRL, EOMI ENT: TMs clear BL, moist mucous membranes, face atraumatic without tenderness Neck: Trachea midline, No JVD, Nontender, full range of motion CV: RRR, no murmurs, mild tenderness to palpation of the left lateral ribs approximately 5/6 rib. No swelling or hematoma. No crepitus. Resp: Lungs CTA BL, no w/r/c GI: Abd soft, non-distended, non-tender, no r/r/g Musc: Full ROM but generalized weakness, no deformity, no spinal TTP, no berna step-offs, abrasions to the bilateral knees with minimal tenderness bilaterally-full range of motion of the knee without instability, DP/PT pulses +2 bilaterally Skin: Warm, dry, intact Neuro: Alert, oriented, grossly intact, sensation intact, GCS 15 Psych: Cooperative, appropriate mood and affect [facility] Medical History Paroxysmal atrial flutter Thyrotoxicosis due to Graves' disease Anxiety Depression Diabetes Non-smoker Asthma History of left heart catheterization Hyperlipidemia Hypertension Tremor Home Medications ???Medication ???Instructions ???Recorded ???Last Taken ???Type amlodipine 10 mg tablet 1 tab PO DAILY BLOOD PRESSURE /10/1704/03/23 History clonidine HCl 0.3 mg tablet 1 tab PO BID BLOOD PRESSURE 04/03/23 History cyclobenzaprine 10 mg tablet 10 mg PO QHS PRN LEG CRAMPS 04/02/23 History insulin degludec 200 unit/mL (3 56 unit subcut QHS DIABETES Unknown History mL) subcutaneous pen (Tresiba FlexTouch U-200 insulin) acetaminophen 500 mg tablet 1,000 mg (2 x 500 mg) PO Q6H PRN 0 04/21/23 Unknown Rx PRN Pain Score 1-10 #0 tabs magnesium chloride 64 mg 128 mg (2 x 64 mg) PO DAILY 30 Unknown Rx (magnesium chloride) days #60 tabs tablet,delayed release (Mag 64) oxybutynin chloride 15 mg 15 mg PO BID 05/01/23 Unknown Hist ory tablet,extended release 24 hr apixaban 5 mg tablet (Eliquis) 5 mg PO BID blood thinner #180 tab s 05/04/23 Unknown Rx metoprolol tartrate 25 mg tablet 25 mg PO BID heart/pulse #180 tabs 05/04/23 Unknown Rx famotidine 20 mg tablet 20 mg PO BID #10 TABLETS 05/08/23 Unknown Rx methimazole 10 mg tablet 15 mg (1.5 x 10 mg) PO DAILY 05/07 Unknown Rx thyroid 30 days #45 tabs Allergy/AdvReac Type Severity Reaction Status Date / Time adhesive tape Allergy Other Verified 08/15/24 12:41 apple Allergy Swelling Verified 08/15/24 12:41 cephalexin monohydrate (From Allergy Other Verified 08/15/24 12:41 Keflex) ciprofloxacin (From Cipro) Allergy Hives Verified 08/15/24 12:41 ciprofloxacin HCl (From Allergy Hives Verified 08/15/24 12:41 Cipro) citalopram hydrobromide Allergy Unknown Verified 08/15/24 12:41 (From Celexa) clarithromycin (From Biaxin) Allergy Unknown Verified 08/15/24 12:41 codeine Allergy Unknown Verified 08/15/24 12:41 diltiazem HCl (From Cardizem) Allergy Unknown Verified 08/15/24 12:41 fluoxetine HCl (From Prozac) Allergy (more content not included)... Normal [facility] Ribs Uni Min 3V w/PA Cheston 08-15-2024 Ribs Uni Min 3V w/PA Chest [facility] Imaging Services [address] [place], [place] [address] Ribs Uni Min 3V w/PA Chest MR#: [id number] Acct: [id number] Name: TIFFANIE VILLAFANA Rep #: [id number] : 1955 F 69 From: Juaquin Mcqueen DO PCP: CLEMENCIA MILLER Status: REG ER Study: Ribs Uni Min 3V w/PA Chest Date of Exam: 08/15 Exam# [id number] Ordering Dr: Wellington Law DO ADDENDUM by Dr. Juaquin Mcqueen DO on 08/15/24 at 1346 Comparison: None. Findings: No displaced rib fractures are identified. Heart size is normal. Lungs are clear. No pneumothorax or pleural effusion. Impression No displaced rib fracture identified. Other findings above. Reading Location: [facility] 08/15/24 1346 Date cc: Dr. Wellington Law DO; CLEMENCIA MILLER * Signed PROCEDURE: RIBS UNI MIN 3 V w/PA CHEST 08/15/2024 REASON FOR EXAM: LEFT-SIDED RIB PAIN TECHNIQUE: RIBS UNI MIN 3V W/PA CHEST FINDINGS: Findings: Other: Reading Location: [facility] CC: Dr. Wellington Law DO; CLEMENCIA BANNERMANISH 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: Signed Normal [facility] 12 Lead EKGon 07-29-2024 12 Lead EKG [facility] Cardiovascular Services [address] [place] [address] 12 Lead EKG 07/29/24 0955 MR#: [id number] Acct: [id number] Name: TIFFANIE VILLAFANA Rep #: [id number] : 1955 69 From: Earl Hannah MD Attending Dr: Status: DEP Ordering Dr: Luis Mcdonald MD Date: 07/29/24 Location: ED Sex: F C Admitted: Test Reason : Blood Pressure : */* mmHG Vent. Rate : 67 BPM Atrial Rate : * BPM P-R Int : * ms QRS Dur : 70 ms QT Int : 402 ms P-R-T Axes : * -7 37 degrees QTcB Int : 424 ms Poor tracing Probably Normal Sinus Rhythm Cannot rule out old inferior wall MT Abnormal ECG Confirmed by Earl Hannah ([id number]), pictures editor ACOSTA JOSHUA ([id number]) on 08/01/2024 10:47:39 AM Referred By: Confirmed By: Earl Hannah 08/01/24 1047 Date Earl Hannah MD CC: Dr. Luis Mcdonald MD; CLEMENCIA PAUL Signed Normal [facility] Abdomen/Pelvis W IV Cont ONL Yon 07-29-2024 Abdomen/Pelvis W IV Cont ONLY [facility] Imaging Services [address] [place], [place] [address] Abdomen/Pelvis W IV Cont ONLY MR#: [id number] Acct: [id number] Name: TIFFANIE VILLAFANA Rep #: [id number] : 1955 F 69 From: Vasu Zimmerman MD PCP: CLEMENCIA MILLER Status: REG ER Study: Abdomen/Pelvis W IV Cont ONLY Date of Exam: Exam# [id number] Ordering Dr: Luis Mcdonald MD EXAM: CT Abdomen and Pelvis With Intravenous Contrast CLINICAL INDICATION: HYPOTENSION, LOW BACK PAIN TECHNIQUE: Axial computed tomography images of the abdomen and pelvis with intravenous contrast. This CT exam was performed using one or more of the following dose reduction techniques: automated exposure control, adjustment of the mA and/or kV according to patient size, and/or use of iterative reconstruction technique. COMPARISON: No relevant prior studies available. FINDINGS: LUNG BASES: Unremarkable. No mass. No consolidation. MEDIASTINUM: Small esophageal hiatal hernia. ABDOMEN: LIVER: Hepatomegaly with fatty infiltration. GALLBLADDER AND BILE DUCTS: Gallbladder is surgically absent. No ductal dilation. PANCREAS: Unremarkable. No mass. No ductal dilation. SPLEEN: Unremarkable. No splenomegaly. ADRENALS: Unremarkable. No mass. KIDNEYS AND URETERS: Unremarkable. No solid mass. No hydronephrosis. STOMACH AND BOWEL: Small anterior ventral hernia of the lower mid abdomen containing fat. No bowel obstruction. Fecal retention in the colon consistent with constipation. No mucosal thickening. PELVIS: APPENDIX: No findings to suggest acute appendicitis. BLADDER: Unremarkable. No mass. REPRODUCTIVE: Unremarkable as visualized. ABDOMEN and PELVIS: INTRAPERITONEAL SPACE: Unremarkable. No free air. No significant fluid collection. BONES/JOINTS: No acute fracture. No dislocation. SOFT TISSUES: See above. VASCULATURE: Scattered calcified atherosclerotic disease of aorta. No abdominal aortic aneurysm. LYMPH NODES: Unremarkable. No enlarged lymph nodes. CT/Abdomen/Pelvis W IV Cont ONLY IMPRESSION: 1. Small anterior ventral hernia of the lower mid abdomen containing fat. No bowel obstruction. 2. Small esophageal hiatal hernia. 3. Hepatomegaly with fatty infiltration. 4. Fecal retention in the colon consistent with constipation. Reading Location: [facility] CC: Dr. Luis Mcdonald MD; CLEMENCIA MILLER 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: Signed Normal [facility] Absolute lymphocyte countOrd ered By: Luis Mcdonald on 07-29-2024 Lymphocytes Auto (Unsp spec) [#/Vol] 1.85 10*3/uL 0.83-4.51 [facility] Absolute neutrophil countOrd ered By: Luis Mcdonald on 07-29-2024 Neutrophils (Bld) [#/Vol] 6.6 10*3/uL 2.0-7.7 [facility] Anion gap in Serum or Plasma Ordered By: Luis Mcdonald on 07-29-2024 Anion gap [Moles/Vol] 11 mmol/L 5-15 [facility] Automated lymphocyte count a s percentage of total leukocytesOrdered By: Luis Mcdonald on 07-29-2024 Lymphocytes/100 WBC Auto (Unsp spec) 19.5 % 19-41 [facility] BUN/creatinine ratioOrdered By: Luis Mcdonald on 07-29-2024 Urea nitrogen/Creatinine [Mass ratio] 17.2 mg/mg 10-20 [facility] Basophil percentageOrdered B y: Luis Mcdonald on 07-29-2024 Basophils/100 WBC (Bld) 0.6 % 0-1 [facility] Bilirubin Test strip Ql (U)O rdered By: Luis Mcdonald on 07-29-2024 Bilirubin Ql (U) Negative Negative [facility] Bilirubin, totalOrdered By: Luis Mcdonald on 07-29-2024 Bilirubin [Mass/Vol] 0.30 mg/dL 0.00-1.30 [facility] CBC W/Diff, Automatedon 07-02 Absolute Lymph 1.85 X10 3/uL Normal 0.83-4.51 [facility] Comment on above: Performed By: #### L 100.0100, L503.6005, L500.4050 #### [facility] [address] [place], [address] Absolute Neut 6.6 X10 3/uL Normal 2.0-7.7 [facility] Comment on above: Performed By: #### L 100.0100, L503.6005, L500.4050 #### [facility] [address] [place], [address] Basophils/100 WBC (Bld) 0.6 % Normal 0-1 [facility] Comment on above: Performed By: #### L 100.0100, L503.6005, L500.4050 #### [facility] [address] [place], [address] Eosinophils/100 WBC (Bld) 2.5 % Normal 0-5 [facility] Comment on above: Performed By: #### L 100.0100, L503.6005, L500.4050 #### [facility] [address] [place], [address] Erythrocyte distribution width (RBC) [Ratio] 14.8 % High 11.6-14.6 [facility] Comment on above: Performed By: #### L 100.0100, L503.6005, L500.4050 #### [facility] [address] [place], [address] Hematocrit (Bld) [Volume fraction] 41.8 % Normal 37-47 [facility] Comment on above: Performed By: #### L 100.0100, L503.6005, L500.4050 #### [facility] [address] [place], [address] Hemoglobin (Bld) [Mass/Vol] 13.4 g/dL Normal 12.0-15.0 [facility] Comment on above: Performed By: #### L 100.0100, L503.6005, L500.4050 #### [facility] [address] [place], [address] IG% 0.500 Normal 0.0-0.9 [facility] Comment on above: Result Comment: IG% - Immature Granulocytes (promyelocytes, myelocytes and metamyelocytes) > 1% indicates that a LEFT SHIFT is Present. Performed By: #### L 100.0100, L503.6005, L500.4050 #### [facility] [address] [place], [address] Lymphocytes/100 WBC (Bld) 19.5 % Normal 19-41 [facility] Comment on above: Performed By: #### L 100.0100, L503.6005, L500.4050 #### [facility] [address] [place], [address] MCH (RBC) [Entitic mass] 26.6 pg Low 27.0-32.0 [facility] Comment on above: Performed By: #### L 100.0100, L503.6005, L500.4050 #### [facility] [address] [place], [address] MCHC (RBC) [Mass/Vol] 32.1 g/dL Normal 32-36 [facility] Comment on above: Performed By: #### L 100.0100, L503.6005, L500.4050 #### [facility] [address] [place], [address] MCV (RBC) [Entitic vol] 83.1 fL Normal 81-99 [facility] Comment on above: Performed By: #### L 100.0100, L503.6005, L500.4050 #### [facility] [address] [place], [address] Monocytes/100 WBC (Bld) 7.1 % Normal 0-10 [facility] Comment on above: Performed By: #### L 100.0100, L503.6005, L500.4050 #### [facility] [address] [place], [address] Neutrophils/100 WBC (Bld) 69.8 % Normal 47-70 [facility] Comment on above: Performed By: #### L 100.0100, L503.6005, L500.4050 #### [facility] [address] [place], [address] Nucleated RBC (Bld) [#/Vol] 0 10*3/uL Normal 0-5 [facility] Comment on above: Performed By: #### L 100.0100, L503.6005, L500.4050 #### [facility] [address] [place], [address] Platelet mean volume (Bld) [Entitic vol] 12.1 fL High 6.2-12.0 [facility] Comment on above: Performed By: #### L 100.0100, L503.6005, L500.4050 #### [facility] [address] [place], [address] Platelets (Bld) [#/Vol] 230 10*3/uL Normal 150-450 [facility] Comment on above: Performed By: #### L 100.0100, L503.6005, L500.4050 #### [facility] [address] [place], [address] RBC (Bld) [#/Vol] 5.03 10*6/uL Normal 4.2-5.4 [facility] Comment on above: Performed By: #### L 100.0100, L503.6005, L500.4050 #### [facility] [address] [place], [address] RDW SD 44.8 fl High 35.1-43.9 [facility] Comment on above: Performed By: #### L 100.0100, L503.6005, L500.4050 #### [facility] [address] [place], [address] WBC (Bld) [#/Vol] 9.5 10*3/uL Normal 4.4-11.0 [facility] Comment on above: Performed By: #### L 100.0100, L503.6005, L500.4050 #### [facility] [address] [place], [address] Carbon dioxide, total [Moles /volume] in Central venous bloodOrdered By: Luis Mcdonald on 07-29-2024 CO2 [Moles/Vol] 25.0 mmol/L 21.0-32.0 [facility] Chest 1 View (Portable)on Chest 1 View (Portable) [facility] Imaging Services [address] [place] [address] Chest 1 View (Portable) MR#: [id number] Acct: [id number] Name: TIFFANIE VILLAFANA Rep #: [id number] : 1955 F 69 From: Vasu Zimmerman MD PCP: CLEMENCIA MILLER Status: REG ER Study: Chest 1 View (Portable) Date of Exam: 07/29/24 Exam# [id number] Ordering Dr: Luis Mcdonald MD EXAM: XR Chest, 1 View CLINICAL INDICATION: WEAKNESS TECHNIQUE: Frontal view of the chest. COMPARISON: No relevant prior studies available. FINDINGS: LUNGS AND PLEURAL SPACES: Unremarkable. No consolidation. No pneumothorax. HEART: Unremarkable. No cardiomegaly. MEDIASTINUM: Unremarkable. Normal mediastinal contour. BONES/JOINTS: Unremarkable. No acute fracture. RAD/Chest 1 View (Portable) IMPRESSION: No acute cardiopulmonary process. Reading Location: [facility] CC: Dr. Luis Mcdonald MD; CLEMENCIA MILLER 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: Signed Normal [facility] Chloride assayOrdered By: Ann Mcdonald on 07-29-2024 Chloride [Moles/Vol] 103 mmol/L 98-108 [facility] Comprehensive Metabolic Prof ilon 07-29-2024 Albumin [Mass/Vol] 4.0 g/dL Normal 3.4-4.8 [facility] Comment on above: Performed By: #### L 100.0100, L503.6005, L500.4050 #### [facility] Laboratory [address] [place], [address] Albumin/Globulin [Mass ratio] 1.2 {ratio} Normal 0.9-2.4 [facility] Comment on above: Performed By: #### L 100.0100, L503.6005, L500.4050 #### [facility] [address] [place], [address] ALK PHOS 109 U/L High 35-104 [facility] Comment on above: Performed By: #### L 100.0100, L503.6005, L500.4050 #### [facility] [address] [place], [address] ALT [Catalytic activity/Vol] 12 U/L Normal <=34 [facility] Comment on above: Performed By: #### L 100.0100, L503.6005, L500.4050 #### [facility] [address] [place], [address] AST [Catalytic activity/Vol] 20 U/L Normal <=31 [facility] Comment on above: Performed By: #### L 100.0100, L503.6005, L500.4050 #### [facility] [address] [place], [address] Bilirubin [Mass/Vol] 0.30 mg/dL Normal 0.00-1.30 [facility] Comment on above: Performed By: #### L 100.0100, L503.6005, L500.4050 #### [facility] [address] [place], [address] BUN/CRE 17.2 RATIO Normal 10-20 [facility] Comment on above: Performed By: #### L 100.0100, L503.6005, L500.4050 #### [facility] [address] [place], [address] Calcium [Mass/Vol] 9.8 mg/dL Normal 7.6-11.0 [facility] Comment on above: Performed By: #### L 100.0100, L503.6005, L500.4050 #### [facility] [address] [place], [address] Chloride [Moles/Vol] 103 mmol/L Normal 98-108 [facility] Comment on above: Performed By: #### L 100.0100, L503.6005, L500.4050 #### [facility] [address] [place], [address] CO2 [Moles/Vol] 25.0 mmol/L Normal 21.0-32.0 [facility] Comment on above: Performed By: #### L 100.0100, L503.6005, L500.4050 #### [facility] [address] [place], [address] Creatinine [Mass/Vol] 1.00 mg/dL Normal 0.70-1.20 [facility] Comment on above: Performed By: #### L 100.0100, L503.6005, L500.4050 #### [facility] [address] [place], [address] ECRCL 61.31 ml/min Normal 50-250 [facility] Comment on above: Performed By: #### L 100.0100, L503.6005, L500.4050 #### [facility] [address] [place], [address] GAP 11 Normal 5-15 [facility] Comment on above: Performed By: #### L 100.0100, L503.6005, L500.4050 #### [facility] [address] [place], [address] GFR/1.73 sq M.predicted among non-blacks MDRD (S/P/Bld) [Vol rate/Area] 62 mL/min/{1.73_m2} Normal >60 [facility] Comment on above: Result Comment: mL/m in/1.73m2 CKD-EPI Creatinine Equation (2020) Performed By: #### L 100.0100, L503.6005, L500.4050 #### [facility] [address] [place], [address] Globulin (S) [Mass/Vol] 3.4 g/dL Normal 2.2-4.2 [facility] Comment on above: Performed By: #### L 100.0100, L503.6005, L500.4050 #### [facility] [address] [place], [address] Glucose [Mass/Vol] 110 mg/dL High 70-99 [facility] Comment on above: Performed By: #### L 100.0100, L503.6005, L500.4050 #### [facility] [address] [place], [address] Potassium [Moles/Vol] 4.9 mmol/L Normal 3.3-5.1 [facility] Comment on above: Performed By: #### L 100.0100, L503.6005, L500.4050 #### [facility] [address] [place], [address] Sodium [Moles/Vol] 139 mmol/L Normal 133-145 [facility] Comment on above: Performed By: #### L 100.0100, L503.6005, L500.4050 #### [facility] [address] [place], [address] T PROT 7.4 g/dL Normal 5.9-8.4 [facility] Comment on above: Performed By: #### L 100.0100, L503.6005, L500.4050 #### [facility] [address] [place], [address] Urea nitrogen [Mass/Vol] 17 mg/dL Normal 4-19 [facility] Comment on above: Performed By: #### L 100.0100, L503.6005, L500.4050 #### [facility] [address] [place], [address] Emergency Department Summary on 07-29-2024 Emergency Department Summary [facility] Medical Records Department [address] [place] [address] Emergency Department Summary 07/29/24 MR#: [id number] Acct: [id number] Name: TIFFANIE VILLAFANA Rep #: [id number] : 1955 69 From: Luis Mcdonald MD PCP: CLEMENCIA MILLER Status:REG ER Location: ED HPI History of Present Illness Chief Complaint: Back Informant: patient Narrative Narrative: 69-year-old female has been feeling weak for the past 5 or 6 days, she had a minor fall couple days ago, she also states that her blood pressure has been running low in the high 80s for the last couple days. She lives alone has severe Parkinson's, she has an aide that comes to help her. In the last day or 2 she has had urinary symptoms and low back pain. Thinks maybe she has a bladder infection. She denies any hematuria, lateralizing pain in her low back, vomiting, or fevers. She denies any cough or dyspnea. She denies any weakness or numbness focally in her legs, or pain radiating down her legs. She denies injuring herself when she fell the other day, including her back and her head. [facility] Medical History Paroxysmal atrial flutter Thyrotoxicosis due to Graves' disease Anxiety Depression Diabetes Non-smoker Asthma History of left heart catheterization Hyperlipidemia Hypertension Tremor Home Medications ???Medication ???Instructions ???Recorded ???Last Taken ???Type amlodipine 10 mg tablet 1 tab PO DAILY BLOOD PRESSURE /10/1704/03/23 History clonidine HCl 0.3 mg tablet 1 tab PO BID BLOOD PRESSURE 04/03/23 History cyclobenzaprine 10 mg tablet 10 mg PO QHS PRN LEG CRAMPS 04/02/23 History insulin degludec 200 unit/mL (3 56 unit subcut QHS DIABETES Unknown History mL) subcutaneous pen (Tresiba FlexTouch U-200 insulin) acetaminophen 500 mg tablet 1,000 mg (2 x 500 mg) PO Q6H PRN 0 04/21/23 Unknown Rx PRN Pain Score 1-10 #0 tabs magnesium chloride 64 mg 128 mg (2 x 64 mg) PO DAILY 30 Unknown Rx (magnesium chloride) days #60 tabs tablet,delayed release (Mag 64) oxybutynin chloride 15 mg 15 mg PO BID 05/01/23 Unknown Hist ory tablet,extended release 24 hr apixaban 5 mg tablet (Eliquis) 5 mg PO BID blood thinner #180 tab s 05/04/23 Unknown Rx metoprolol tartrate 25 mg tablet 25 mg PO BID heart/pulse #180 tabs 05/04/23 Unknown Rx famotidine 20 mg tablet 20 mg PO BID #10 TABLETS 05/08/23 Unknown Rx methimazole 10 mg tablet 15 mg (1.5 x 10 mg) PO DAILY 05/07 Unknown Rx thyroid 30 days #45 tabs Allergy/AdvReac Type Severity Reaction Status Date / Time adhesive tape Allergy Other Verified 12/24/23 16:44 apple Allergy Swelling Verified 12/24/23 16:44 cephalexin monohydrate (From Allergy Other Verified 12/24/23 16:44 Keflex) ciprofloxacin (From Cipro) Allergy Hives Verified 12/24/23 16:44 ciprofloxacin HCl (From Allergy Hives Verified 12/24/23 16:44 Cipro) citalopram hydrobromide Allergy Unknown Verified 12/24/23 16:44 (From Celexa) clarithromycin (From Biaxin) Allergy Unknown Verified 12/24/23 16:44 codeine Allergy Unknown Verified 12/24/23 16:44 diltiazem HCl (From Cardizem) Allergy Unknown Verified 12/24/23 16:44 fluoxetine HCl (From Prozac) Allergy Unknown Verified 12/24/23 16:44 fluticasone (From Advair Allergy Swelling Verified 12/24/23 16:44 Diskus) fluticasone propionate (From Allergy Other Verified 12/24/23 16:44 Advair Diskus) hydrochlorothiazide (From Allergy Unknown Verified 12/24/23 16:44 Hyzaar) ipratropium bromide (From Allergy Unknown Verified 12/24/23 16:44 Atrovent) labetalol Allergy Rash Verified 12/24/23 16:44 lamotrigine (From Lamictal) Allergy Unknown Verified 12/24/23 16:44 latex Allergy Unknown Verified 12/24/23 16:44 liraglutide (From Victoza) Allergy Unknown Verified 12/24/23 16:44 losartan potassium (From Allergy Unknown Verified 12/24/23 16:44 Hyzaar) meloxicam (From Mobic) Allergy Other Verified 12/24/23 16:44 nitrofurantoin (From Allergy Hives Verified 12/24/23 16:44 Macrobid) nitrofurantoin Allergy Hives Verified 12/24/23 16:44 macrocrystalline (From Macrobid) Penicillins Allergy Rash Verified 12/24/23 16:44 pineapple Allergy Other Verified 12/24/23 16:44 quetiapine fumarate (From Allergy Unknown Verified 12/24/23 16:44 Seroquel) salmeterol (From Advair Allergy Swelling Verified 12/24/23 16:44 Diskus) salmeterol xinafoate (From Allergy Other Verified 12/24/23 16:44 Advair Diskus) sertraline HCl (From Zoloft) Allergy Unknown Verified 12/24/23 16:44 simvastatin (From Zocor) Allergy Unknown Verified 12/24/23 16:44 topiramate (From Topamax) Allergy Unknown Verified 12/24/23 16:44 verapamil HCl (From Allergy Unkno (more content not included)... Normal [facility] Eosinophil percentageOrdered By: Luis Mcdonald on 07-29-2024 Eosinophils/100 WBC (Bld) 2.5 % 0-5 [facility] Erythrocyte distribution wid th ratioOrdered By: Luis Mcdonald on 07-29-2024 Erythrocyte distribution width (RBC) [Ratio] 14.8 % High 11.6-14.6 [facility] Erythrocyte distribution wid th standard deviationOrdered By: Luis Mcdonald on 07-29-2024 Erythrocyte distribution width (RBC) [Ratio] 44.8 fl High 35.1-43.9 [facility] Glomerular filtration rate ( GFR) estimation/1.73 sq m using serum, plasma, or whole bOrdered By: Luis Mcdonald on 07-29-2024 GFR/1.73 sq M.predicted among non-blacks MDRD (S/P/Bld) [Vol rate/Area] 62 mL/min/{1.73_m2} >60 [facility] Comment on above: mL/min/1.73m2 CKD-EP I Creatinine Equation (2020) Hematocrit Auto (Bld) [Volum e fraction]Ordered By: Luis Mcdonald on 07-29-2024 Hematocrit (Bld) [Volume fraction] 41.8 % 37-47 [facility] Hemoglobin measurementOrdere d By: Luis Mcdonald on 07-29-2024 Hemoglobin (Bld) [Mass/Vol] 13.4 g/dL 12.0-15.0 [facility] Immature granulocytes/100 WB C Auto (Bld)Ordered By: Luis Mcdonald on 07-29-2024 Immature granulocytes/100 WBC (Bld) 0.500 % 0.0-0.9 [facility] Comment on above: IG% - Immature Granu locytes (promyelocytes, myelocytes and metamyelocytes) > 1% indicates that a LEFT SHIFT is Present. Ketones Test strip Ql (U)Ord ered By: Luis Mcdonald on 07-29-2024 Ketones Ql (U) Negative Negative [facility] Laboratory - Chemistry and C hemistry - challengeOrdered By: Luis Mcdonald on 07-29-2024 AST [Catalytic activity/Vol] 20 U/L <32 [facility] Lactic Acidon 07-29-2024 Lactate [Moles/Vol] 1.2 mmol/L Normal 0.0-2.0 [facility] Comment on above: Order Comment: Y Performed By: #### L 100.0100, L503.6005, L500.4050 ####[facility] [address] [place], [address] Lactic acid measurementOrder ed By: Luis Mcdonald on 07-29-2024 Lactate [Moles/Vol] 1.2 mmol/L 0.0-2.0 [facility] MCV (mean corpuscular volume ) determinationOrdered By: Luis Mcdonald on 07-29-2024 MCV (RBC) [Entitic vol] 83.1 fL 81-99 [facility] Mean corpuscular hemoglobin (MCH) determinationOrdered By: Luis Mcdonald on 07-29-2024 MCH (RBC) [Entitic mass] 26.6 pg Low 27.0-32.0 [facility] Mean corpuscular hemoglobin concentration (MCHC) determinationOrdered By: Luis Mcdonald on 07-29-2024 MCHC (RBC) [Mass/Vol] 32.1 g/dL 32-36 [facility] Mean platelet volume determi nationOrdered By: Luis Mcdonald on 07-29-2024 Platelet mean volume (Bld) [Entitic vol] 12.1 fL High 6.2-12.0 [facility] Microscopic analysis of urin e for red blood cells (RBC)Ordered By: Luis Mcdonald on 07-29-2024 Microscopic analysis of urine for red blood cells (RBC) 0-5 SEEN /hpf 0-5 [facility] Monocyte percentageOrdered B y: Luis Mcdonald on 07-29-2024 Monocytes/100 WBC (Bld) 7.1 % 0-10 [facility] Mucus LM Ql (Urine sed)Order ed By: Luis Mcdonald on 07-29-2024 Mucus Ql (Urine sed) 0 SEEN /hpf [facility] Neutrophil percentageOrdered By: Luis Mcdonald on 07-29-2024 Neutrophils/100 WBC (Bld) 69.8 % 47-70 [facility] Nitrite Test strip Ql (U)Ord ered By: Luis Mcdonald on 07-29-2024 Nitrite Ql (U) Negative Negative [facility] Nucleated red blood cell per centageOrdered By: Luis Mcdonald on 07-29-2024 Nucleated RBC/100 WBC (Bld) [Ratio] 0 % 0-5 [facility] Platelet countOrdered By: Ann Mcdonald on 07-29-2024 Platelets (Bld) [#/Vol] 230 10*3/uL 150-450 [facility] Potassium measurement (mass/ volume)Ordered By: Luis Mcdonald on 07-29-2024 Potassium (Unsp spec) [Mass/Vol] 4.9 mmol/L 3.3-5.1 [facility] Protein Test strip Ql (U)Ord ered By: Luis Mcdonald on 07-29-2024 Protein Ql (U) 30 mg/dl High Negative [facility] RBC Auto (Bld) [#/Vol]Ordere d By: Luis Mcdonald on 07-29-2024 RBC (Bld) [#/Vol] 5.03 10*6/uL 4.2-5.4 [facility] Serum creatinine measurement (mass/volume)Ordered By: Luis Mcdonald on 07-29-2024 Creatinine [Mass/Vol] 1.00 mg/dL 0.70-1.20 [facility] Serum globulin measurementOr dered By: Luis Mcdonald on 07-29-2024 Globulin (S) [Mass/Vol] 3.4 g/dL 2.2-4.2 [facility] Serum glucose measurement (m ass/volume)Ordered By: Luis Mcdonald on 07-29-2024 Glucose [Mass/Vol] 110 mg/dL High 70-99 [facility] Serum or plasma alanine whitaker otransferase (ALT) measurementOrdered By: Luis Mcdonald on 07-29-2024 ALT [Catalytic activity/Vol] 12 U/L <35 [facility] Serum or plasma albumin nadeem urement (mass/volume)Ordered By: Luis Mcdonald on 07-29-2024 Albumin [Mass/Vol] 4.0 g/dL 3.4-4.8 [facility] Serum or plasma albumin/glob ulin mass ratioOrdered By: Luis Mcdonald on 07-29-2024 Albumin/Globulin [Mass ratio] 1.2 {ratio} 0.9-2.4 [facility] Serum or plasma alkaline rakel sphatase measurementOrdered By: Luis Mcdonald on 07-29-2024 ALP [Catalytic activity/Vol] 109 U/L High 35-104 [facility] Serum or plasma calcium nadeem urement (mass/volume)Ordered By: Luis Mcdonald on 07-29-2024 Calcium [Mass/Vol] 9.8 mg/dL 7.6-11.0 [facility] Serum or plasma urea nitroge n measurement (mass/volume)Ordered By: Luis Mcdonald on 07-29-2024 Urea nitrogen [Mass/Vol] 17 mg/dL 4-19 [facility] Sodium levelOrdered By: Chetan Mcdonald on 07-29-2024 Sodium [Moles/Vol] 139 mmol/L 133-145 [facility] Squamous epithelial cells de tection in urine sediment by light microscopyOrdered By: Luis Mcdonald on 07-29-2024 Epithelial cells.squamous LM Ql (Urine sed) 0-5 SEEN /hpf 5-10 [facility] Total proteinOrdered By: Glendy Mcdonald on 07-29-2024 Protein [Mass/Vol] 7.4 g/dL 5.9-8.4 [facility] Urinalysis, Completeon 07-29 BACTERIA 1+ /hpf Normal None Seen [facility] Comment on above: Order Comment: DYLAN TER SPECIMEN Performed By: #### L 400.0001 #### [facility] [address] [place], [address] WBC 0-5 SEEN Normal 0-5 [facility] Comment on above: Order Comment: DYLAN TER SPECIMEN Performed By: #### L 400.0001 #### [facility] [address] [place], [address] EPI,SQUAMOUS 0-5 SEEN Normal 5-10 [facility] Comment on above: Order Comment: DYLAN TER SPECIMEN Performed By: #### L 400.0001 #### [facility] [address] [place], [address] RBC 0-5 SEEN Normal 0-5 [facility] Comment on above: Order Comment: DYLAN TER SPECIMEN Performed By: #### L 400.0001 #### [facility] [address] [place], [place], [address] Mucus Ql (Urine sed) 0 SEEN Normal [facility] Comment on above: Order Comment: DYLAN TER SPECIMEN Performed By: #### L 400.0001 #### [facility] [address] [place], [place], [id number] Urine clarityOrdered By: Glendy Mcdonald on 07-29-2024 Clarity (U) Clear Clear [facility] Urine color determinationOrd ered By: Luis Mcdonald on 07-29-2024 Color (U) Straw Yellow [facility] Urine glucose detectionOrder ed By: Luis Mcdonald on 07-29-2024 Glucose Ql (U) Normal mg/dl Normal [facility] Urine leukocyte esterase det ection by dipstickOrdered By: Luis Mcdonald on 07-29-2024 Leukocyte esterase Test strip Ql (U) Negative Negative [facility] Urine pHOrdered By: Luis Mcdonald on 07-29-2024 pH (U) 7.0 [pH] 5.0 - 8.0 [facility] Urine sediment bacteria coun t by microscopy (number/high power field)Ordered By: Luis Mcdonald on 07-29-2024 Bacteria LM.HPF (Urine sed) [#/Area] 1 /[HPF] None Seen [facility] Urine specific gravity measu rementOrdered By: Luis Mcdonald on 07-29-2024 Specific gravity (U) [Rel density] 1.010 1.002-1.030 [facility] Urine urobilinogen measureme ntOrdered By: Luis Mcdonald on 07-29-2024 Urobilinogen Ql (U) Normal mg/dl Normal [facility] White blood cell (WBC) count Ordered By: Luis Mcdonald on 07-29-2024 WBC (Bld) [#/Vol] 9.5 10*3/uL 4.4-11.0 [facility] White blood cell countOrdere d By: Luis Mcdonald on 07-29-2024 White blood cell count 0-5 SEEN /hpf 0-5 [facility] CNPNon 03-15-2024 CNPN Telephone (INTMWS) BRODERICKTIFFANIE ([id number]) 1955 F Date Time Provider Department 03/15/24 SAGRARIO PEREZ INTMWS During your visit today, we recorded the following information about you: Cornelia Penaloza, RN 03/15/2024 1:32 PM Signed [facility] phoned to let pcp know Tresiba is not covered on patient's insurance. It is not on formulary. Asking if provider can send alternative. Linsey Denis, INSTRUCTOR TECHNICAL TRAINING[employer] 03/16/2024 9:25 AM Signed She was switched to Tresiba by clinical pharmacist in 2020: 1. Type 2 diabetes mellitus with diabetic neuropathy, with long-term current use of insulin ([facility]) - ICD9: 250.60, 357.2, V58.67, ICD10: E11.40, Z79.4 (primary diagnosis) A1c goal < 7%; not at goal (last A1c 7.5%); SMBG mostly at goal on current regimen; however pt reports nighttime hypoglycemia resulting in pt self-decreasing insulin dose to half daily dose in fear of hypoglycemia. She also reports missed doses of evening Lantus on occasion. Pt would benefit from switching Lantus to Tresiba as it is a once daily ultra-long acting insulin associated with less hypoglycemia Can we do a prior authorization? Linsey Denis, JAY.Anna Green MA 03/16/2024 10:24 AM Signed PA submitted electronically RAFAEL Louis Elizabeth, MA 03/16/2024 10:32 AM Signed PA approved: Authorized from February 15, 2024 to March 16, 2025 Information received electronically from payer Called [facility] and let them know PA was approved RAFAEL Louis As of Date: 03/15/2024 Noted Allergy Reaction PINEAPPLE 08/29/2020 7 - Swelling Comments: was not ripe ADHESIVE TAPE (ROSINS) 11/24/2005 2 - Rash ADVAIR DISKUS (FLUTICASONE PROPIO*11/05/2005 7 - Swelling ALTACE (RAMIPRIL) 11/05/2005 10 - Anaphylaxis ATROVENT (IPRATROPIUM BROMIDE) 11/05/2005 2 - Rash BIAXIN (CLARITHROMYCIN) 11/05/2005 1 - Mental Status Change Comments: Can take zithromax CARBIDOPA-LEVODOPA 03/10/2023 2 - Rash 7 - Swelling CARDIZEM (DILTIAZEM HCL) 11/05/2005 10 - Anaphylaxis CELEXA (CITALOPRAM HYDROBROMIDE) 07/06/2006 Comments: Muscle pain and fatigue CIPROFLOXACIN 03/22/2015 2 - Rash 14 - Other: See Comments Comments: Tendonitis in hands CODEINE 11/05/2005 2 - Rash COVERA-HS (VERAPAMIL HCL) 11/05/2005 Comments: Confusion, constipation HYZAAR (LOSARTAN-HYDROCHLOR OTHIAZ*11/05/2005 2 - Rash Comments: Cramps, chills KEFLEX (CEPHALEXIN) 11/05/2005 9 - Itching Comments: rash LABETALOL 11/05/2005 2 - Rash LAMICTAL (LAMOTRIGINE) 11/05/2005 2 - Rash LATEX 07/14/2008 2 - Rash Comments: Occurs if latex on skin for long periods LORTAB (HYDROCODONE-ACETAMI NOPHEN)11/05/2005 1 - Mental Status Change METHENAMINE 08/22/2022 2 - Rash 7 - Swelling 9 - Itching 10 - Anaphylaxis Comments: throat swelling MOBIC (MELOXICAM) 01/02/2011 14 - Other: See Comments Comments: Colt like something squeezing heart PROZAC (FLUOXETINE HCL) 05/13/2006 12 - Shortness of Breath Comments: sob,chest pains SEPTRA (SULFAMETHOXAZOLE-TR IMETHO*11/05/2005 8 - GI Upset SEROQUEL (QUETIAPINE FUMARATE) [...] 12 - Shortness of Breath Date Reviewed: 05/11/2023 Reviewed by: Faye Patrick MA - Fully Assessed Reason for Visit: Medication Problem [65] Prescriptions as of 03/16/2024 - oxybutynin ER (DITROPAN XL) 15 mg 24 hr Extended Rel Tab Take 1 tablet by mouth two times a day. - amLODIPine (NORVASC) 10 mg tablet Take 1 tablet by mouth once daily. - methIMAzole (TAPAZOLE) 10 mg tablet Take 15 mg by mouth once daily. Patient states that she is taking 10 mg plus 5mg - insulin degludec (TRESIBA FLEXTOUCH U-200) 200 unit/mL (3 mL) injection Inject 20 Units subcutaneously daily at bedtime. - ELIQUIS 5 mg tab(s) Take 1 tablet by mouth two times a day. - metoprolol tartrate, short acting, (LOPRESSOR) 25 mg tablet Take 1 tablet by mouth two times a day. - magnesium chloride [address] tablet Take 2 tablets by mouth once daily. - cholecalciferol (VITAMIN D3) 50 mcg (2,000 unit) tablet Take 1 tablet by mouth once daily. - cyclobenzaprine (FLEXERIL) 10 mg tablet Take 1 tablet by mouth daily at bedtime. - insulin aspart U-100 (NOVOLOG FLEXPEN U-100 INSULIN) 100 unit/mL (3 mL) Inject 4 Units subcutaneously three times a day before meals. Will increase as needed up to 10 units per meal - amiodarone (PACERONE) 200 mg tablet Take 1 tablet by mouth once daily. (more content not included)... Normal [facility] Emergency Department Summary on 12-24-2023 Emergency Department Summary [facility] Medical Records Department [address] [place] [address] Emergency Department Summary 12/24/23 MR#: [id number] Acct: [id number] Name: TIFFANIE VILLAFANA #: [id number] : 1955 68 From: Luis Mcdonald MD PCP: CLEMENCIA MILLER Status:REG ER Location: ED HPI History of Present Illness Chief Complaint: Foreign Body Informant: patient and EMS Narrative Narrative: 68-year-old female states she has a foreign body in her throat, it is her pills. She states that she takes about 20 pills at a time but she cannot swallow them any so she takes them a couple at a time and multiple aliquots. She states she did that this morning, she felt fine and then she drinks milk and suddenly started vomiting and felt a foreign body sensation in her throat and assumed that her pills were stuck. She states she went 7 hours like this, calling EMS to evaluate her once, but they said that she seemed to be okay and they left, but came back later when she called again. She states that throughout this time she was trying to drink fluids and continuing to vomited up and not able to pass anything. She did not have any coughing or dyspnea. She states when paramedics came back in and put her on the cot and laid her down she felt something suddenly shift, and she felt like they passed and went down. Now she does not have any discomfort except for when she burps. She is able to drink water without any difficulty now and denies any other complaints. She denies any history of esophageal dilatations. [facility] Medical History Paroxysmal atrial flutter Thyrotoxicosis due to Graves' disease Anxiety Depression Diabetes Non-smoker Asthma History of left heart catheterization Hyperlipidemia Hypertension Tremor Home Medications ???Medication ???Instructions ???Recorded ???Last Taken ???Type amlodipine 10 mg tablet 1 tab PO DAILY BLOOD PRESSURE 05/27/17 04/03/23 History clonidine HCl 0.3 mg tablet 1 tab PO BID BLOOD PRESSURE 05/27/17 04/03/23 History cyclobenzaprine 10 mg tablet 10 mg PO QHS PRN LEG CRAMPS 05/27/17 04/02/23 History insulin degludec 200 unit/mL (3 56 unit subcut QHS DIABETES 09/21/20 Unknown History mL) subcutaneous pen (Tresiba FlexTouch U-200 insulin) acetaminophen 500 mg tablet 1,000 mg (2 x 500 mg) PO Q6H PRN 04/21/23 Unknown Rx PRN Pain Score 1-10 #0 tabs magnesium chloride 64 mg 128 mg (2 x 64 mg) PO DAILY 30 04/21/23 Unknown Rx (magnesium chloride) days #60 tabs tablet,delayed release (Mag 64) oxybutynin chloride 15 mg 15 mg PO BID 05/01/23 Unknown History tablet,extended release 24 hr apixaban 5 mg tablet (Eliquis) 5 mg PO BID blood thinner #180 tabs 05/04/23 Unknown Rx metoprolol tartrate 25 mg tablet 25 mg PO BID heart/pulse #180 tabs 05/04/23 Unknown Rx famotidine 20 mg tablet 20 mg PO BID #10 TABLETS 05/08/23 Unknown Rx methimazole 10 mg tablet 15 mg (1.5 x 10 mg) PO DAILY 05/08/23 Unknown Rx thyroid 30 days #45 tabs Allergy/AdvReac Type Severity Reaction Status Date / Time adhesive tape Allergy Other Verified 12/24/23 16:44 apple Allergy Swelling Verified 12/24/23 16:44 cephalexin monohydrate (From Allergy Other Verified 12/24/23 16:44 Keflex) ciprofloxacin (From Cipro) Allergy Hives Verified 12/24/23 16:44 ciprofloxacin HCl (From Allergy Hives Verified 12/24/23 16:44 Cipro) citalopram hydrobromide Allergy Unknown Verified 12/24/23 16:44 (From Celexa) clarithromycin (From Biaxin) Allergy Unknown Verified 12/24/23 16:44 codeine Allergy Unknown Verified 12/24/23 16:44 diltiazem HCl (From Cardizem) Allergy Unknown Verified 12/24/23 16:44 fluoxetine HCl (From Prozac) Allergy Unknown Verified 12/24/23 16:44 fluticasone (From Advair Allergy Swelling Verified 12/24/23 16:44 Diskus) fluticasone propionate (From Allergy Other Verified 12/24/23 16:44 Advair Diskus) hydrochlorothiazide (From Allergy Unknown Verified 12/24/23 16:44 Hyzaar) ipratropium bromide (From Allergy Unknown Verified 12/24/23 16:44 Atrovent) labetalol Allergy Rash Verified 12/24/23 16:44 lamotrigine (From Lamictal) Allergy Unknown Verified 12/24/23 16:44 latex Allergy Unknown Verified 12/24/23 16:44 liraglutide (From Victoza) Allergy Unknown Verified 12/24/23 16:44 losartan potassium (From Allergy Unknown Verified 12/24/23 16:44 Hyzaar) meloxicam (From Mobic) Allergy Other Verified 12/24/23 16:44 nitrofurantoin (From Allergy Hives Verified 12/24/23 16:44 Macrobid) nitrofurantoin Allergy Hives Verified 12/24/23 16:44 macrocrystalline (From Macrobid) Penicillins Allergy Rash Verified 12/24/23 16:44 pineapple Allergy Other Verified 12/24/23 16:44 quetiapine fumarate (From Allergy Unknown Verified 12/24/23 16:44 Seroque (more content not included)... [facility] 06-05-2023 [facility] Telephone (JACINTO) TIFFANIE VILLAFANA ([id number]) 1955 F Date Time Provider Department 06/05/23 NEUROLOGY PROVIDER JACINTO During your visit today, we recorded the following information about you: Jolly Martinez LPN 06/05/2023 11:13 AM Signed Phone call placed patient advised last seen by Wayne 08/14/2022 with a referral placed to movement disorder clinic for follow up. Patient was scheduled with Waylon, appointment cancelled . Patient verbalized understanding, agreed with plan of care, scheduling phone number given. Jolly Martinez LPN Allergies As of Date: 06/05/2023 Noted Allergy Reaction PINEAPPLE 08/29/2020 7 - Swelling Comments: was not ripe ADHESIVE TAPE (ROSINS) 11/24/2005 2 - Rash ADVAIR DISKUS (FLUTICASONE PROPIO*11/05/2005 7 - Swelling ALTACE (RAMIPRIL) 11/05/2005 10 - Anaphylaxis ATROVENT (IPRATROPIUM BROMIDE) 11/05/2005 2 - Rash BIAXIN (CLARITHROMYCIN) 11/05/2005 1 - Mental Status Change Comments: Can take zithromax CARBIDOPA-LEVODOPA 03/10/2023 2 - Rash 7 - Swelling CARDIZEM (DILTIAZEM HCL) 11/05/2005 10 - Anaphylaxis CELEXA (CITALOPRAM HYDROBROMIDE) 07/06/2006 Comments: Muscle pain and fatigue CIPROFLOXACIN 03/22/2015 2 - Rash 14 - Other: See Comments Comments: Tendonitis in hands CODEINE 11/05/2005 2 - Rash COVERA-HS (VERAPAMIL HCL) 11/05/2005 Comments: Confusion, constipation HYZAAR (LOSARTAN-HYDROCHLOR OTHIAZ*11/05/2005 2 - Rash Comments: Cramps, chills KEFLEX (CEPHALEXIN) 11/05/2005 9 - Itching Comments: rash LABETALOL 11/05/2005 2 - Rash LAMICTAL (LAMOTRIGINE) 11/05/2005 2 - Rash LATEX 07/14/2008 2 - Rash Comments: Occurs if latex on skin for long periods LORTAB (HYDROCODONE-ACETAMI NOPHEN)11/05/2005 1 - Mental Status Change METHENAMINE 08/22/2022 2 - Rash 7 - Swelling 9 - Itching 10 - Anaphylaxis Comments: throat swelling MOBIC (MELOXICAM) 01/02/2011 14 - Other: See Comments Comments: Colt like something squeezing heart PROZAC (FLUOXETINE HCL) 05/13/2006 12 - Shortness of Breath Comments: sob,chest pains SEPTRA (SULFAMETHOXAZOLE-TR IMETHO*11/05/2005 8 - GI Upset SEROQUEL (QUETIAPINE FUMARATE) [...] 12 - Shortness of Breath Date Reviewed: 05/11/2023 Reviewed by: Faye Patrick MA - Fully Assessed Reason for Visit: Appointment [[id number]] Prescriptions as of 06/05/2023 - methIMAzole (TAPAZOLE) 10 mg tablet Take 15 mg by mouth once daily. Patient states that she is taking 10 mg plus 5mg - insulin degludec (TRESIBA FLEXTOUCH U-200) 200 unit/mL (3 mL) injection Inject 20 Units subcutaneously daily at bedtime. - ELIQUIS 5 mg tab(s) Take 1 tablet by mouth two times a day. - metoprolol tartrate, short acting, (LOPRESSOR) 25 mg tablet Take 1 tablet by mouth two times a day. - magnesium chloride [address] tablet Take 2 tablets by mouth once daily. - cholecalciferol (VITAMIN D3) 50 mcg (2,000 unit) tablet Take 1 tablet by mouth once daily. - oxybutynin ER (DITROPAN XL) 15 mg 24 hr Extended Rel Tab Take 1 tablet by mouth two times a day. - cyclobenzaprine (FLEXERIL) 10 mg tablet Take 1 tablet by mouth daily at bedtime. - insulin aspart U-100 (NOVOLOG FLEXPEN U-100 INSULIN) 100 unit/mL (3 mL) Inject 4 Units subcutaneously three times a day before meals. Will increase as needed up to 10 units per meal - amiodarone (PACERONE) 200 mg tablet Take 1 tablet by mouth once daily. - Sennosides (SENOKOT EXTRA STRENGTH) 17.2 mg tab Take 1 tablet by mouth two times a day. - nystatin (MYCOSTATIN) powder Apply 1 application to affected area two times a day. To diaper area - cloNIDine HCl (CATAPRES) 0.3 mg tablet Take 1 tablet by mouth two times a day. - amLODIPine (NORVASC) 10 mg tablet Take 1 tablet by mouth once daily. - flash glucose sensor (FREESTYLE MAHESH 2 SENSOR) kit Apply new sensor every fourteen (14) days to upper arm. - WALKER ROLLATOR SEAT WITH 6" WHEELS - RED Ultra-light with seat if possible, if not please give lightest possible rollator with a seat. Please send to [facility]. - omega-3 fatty acids 1,000 mg cap Take 4 capsules by mouth once daily. Patient reports she is taking 4,000 mg daily - mecobalamin, vitamin B12, (B12 ACTIVE) 1,000 mcg chew Take 1 tablet by mouth once daily. - phytonadione, vit K1, (VITAMIN K) 100 mcg tablet Take 100 mcg by mouth once daily. - blood sugar diagnostic (BLOOD GLUCOSE TEST) test strip Test blood sugar(s) 3 times daily and as needed for symptoms (more content not included)... Normal [facility] CNOVon 05-11-2023 CNOV Office Visit (PODIWS) TIFFANIE VILLAFANA ([id number]) 1955 F Date Time Provider Department 05/11/23 1:00 PM MARIANELA MOONEY PODIWS During your visit today, we recorded the following information about you: Marianela Mooney 05/11/2023 1:16 PM Signed FOLLOW UP PODIATRIC OFFICE VISIT Chief Complaint: This 67 year old who presents for follow up:callus of right 2nd toe Patient presents to clinic for follow-up callus of right 2nd toe. She states the callus since being debrided has not returned Her biggest issue for coming today are hammertoes of right foot She feels the toe deformity is progressively getting worse PAIN EVALUATION No data found in the last 1 encounters. Hemoglobin A1C Date Value Ref Range Status 12/26/2022 6.2 (H) 4.3 - 5.6 % Final Comment: [place] [employer] guidelines indicate that patients with HgbA1c in the range 5.7-6.4% are at increased risk for development of diabetes, and intervention by lifestyle modification may be beneficial. HgbA1c greater or equal to 6.5% is considered diagnostic of diabetes. PCP: Sagrario Perez MD PAST MEDICAL HISTORY Diagnosis Date Acute [...] 11/05/2005 Diabetes mellitus type 2, insulin dependent ([facility]) DIABETES MELLITUS TYPE II-UNCOMPL 08/30/2000 Diverticulosis of [...] Sig methIMAzole (TAPAZOLE) 10 mg tablet Take 15 mg by mouth once daily. Patient states that she is taking 10 mg plus 5mg insulin degludec (TRESIBA FLEXTOUCH U-200) 200 unit/mL [...] needed up to 10 units per meal Sennosides (SENOKOT EXTRA STRENGTH) 17.2 mg tab Take 1 tablet by mouth two times a day. nystatin (MYCOSTATIN) powder Apply 1 application to affected area two times a day. To diaper area cloNIDine HCl (CATAPRES) 0.3 mg tablet Take 1 tablet by mouth two times a day. amLODIPine (NORVASC) 10 mg tablet Take 1 tablet by mouth once daily. flash glucose sensor (FREESTYLE MAHESH 2 SENSOR) kit Apply new sensor every fourteen (14) days to upper arm. WALKER ROLLATOR SEAT WITH 6" WHEELS - RED Ultra-light with seat if possible, if not please give lightest possible rollator with a seat. Please send to [facility]. omega-3 fatty acids 1,000 mg cap Take [...] daily. Dx: Other DM Code E11.40. Insulin [place], Disposable, (BD INSULIN PEN NEEDLE UF) 29 gauge x 1/2" ndle USE TO INJECT TWICE DAILY amiodarone (PACERONE) 200 mg tablet Take 1 tablet by mouth once daily. (Patient not taking: Reported on 05/11/2023) mecobalamin, vitamin B12, (B12 ACTIVE) 1,000 mcg chew Take 1 tablet by mouth once daily. (Patient not taking: Reported on 04/28/2023) Aspirin 81 mg tab Take (more content not included)... Normal [facility] Thin prep Papanicolaou smear with manual screeningOrdered By: Collins Zimmerman on 05-08-2023 Thin prep Papanicolaou smear with manual screening 200 mg/dL 74-106 [facility] Comment on above: MANAGEMENT OF PATIIKE T CARE PER NURSING PROTOCOL CNOVon 04-28-2023 CNOV Office Visit (INTMWS) TIFFANIE VILLAFANA ([id number]) 1955 F Date Time Provider Department 04/28/23 10:40 AM SAGRARIO PEREZ INTMWS During your visit today, we recorded the following information about you: Pulse Blood pressure 56/minute 128/70 Sagrario Perez MD 04/29/2023 7:18 PM Signed This note was created using Star[employer]. Subjective Tiffanie Villafana is a 67 year old female. Patient presents with: Hospital F/U SUBJECTIVE: Tiffanie Villafana is a 67 year old year old [...] for atrial flutter. Was at TCU at [facility] before went home. Noted that did not [...] transfer bench and needs raised toilet seat. Returns Supervisor helping. They are also helping with getting [...] to upper arm. WALKER ROLLATOR SEAT WITH 6" WHEELS - RED Ultra-light with seat if possible, if not please give lightest possible rollator with a seat. Please send to [facility]. omega-3 fatty acids 1,000 mg cap Take [...] does not come with the meter Insulin [place], Disposable, (BD INSULIN PEN NEEDLE UF) 29 gauge x 1/2" ndle USE TO INJECT TWICE DAILY insulin [...] mouth daily at bedtime. insulin aspart U-100 (NOVOL (more content not included)... Normal [facility] Thin prep Papanicolaou smear with manual screeningOrdered By: Troy Gallo on 04-23-2023 Thin prep Papanicolaou smear with manual screening 154 mg/dL 74-106 [facility] Comment on above: MANAGEMENT OF PATIEN T CARE PER NURSING PROTOCOL Basophil percentageOrdered B y: Troy Gallo on 04-19-2023 Chloride [Moles/Vol] 109 mmol/L 98-107 [facility] Glucose [Mass/Vol] 177 mg/dL 74-106 [facility] Comment on above: Fasting Glucose resu lt greater than or equal to 126 mg/dL suggests DIABETES MELLITUS per A.D.A. criteria. Potassium [Moles/Vol] 4.3 mmol/L 3.5-5.1 [facility] Sodium [Moles/Vol] 139 mmol/L 136-145 [facility] Laboratory - Chemistry and C hemistry - challengeOrdered By: Troy Gallo on 04-19-2023 CO2 [Moles/Vol] 27.0 mmol/L 21.0-32.0 [facility] Urea nitrogen/Creatinine [Mass ratio] 27.6 mg/mg 10-20 [facility] No Panel InformationOrdered By: Troy Gallo on 04-19-2023 Estimated Creatinine Clearance Calc 54.67 ml/min [facility] Estimated GFR (MDRD) Amer 60 mL/min >60 [facility] Comment on above: GFR Calc Estimated GFR (MDRD) Non-Af Amer 50 mL/min >60 [facility] Comment on above: Non- GFR Calc Serum or plasma calcium nadeem urement (mass/volume)Ordered By: Troy Gallo on 04-19-2023 Calcium [Mass/Vol] 9.7 mg/dL 8.5-10.1 [facility] Serum or plasma creatinine m easurement (mass/volume)Ordered By: Troy Gallo on 04-19-2023 Creatinine [Mass/Vol] 1.16 mg/dL 0.55-1.02 [facility] Comment on above: The validity of the calculated GFR & GFRAA in patients over 70 years has not been determined. Clinical correlation is essential. Serum or plasma urea nitroge n measurement (mass/volume)Ordered By: Troy Gallo on 04-19-2023 Urea nitrogen [Mass/Vol] 32 mg/dL 7-18 [facility] Thin prep Papanicolaou smear with manual screeningOrdered By: Troy Gallo on 04-19-2023 Thin prep Papanicolaou smear with manual screening 3 5-15 [facility] Absolute lymphocyte countOrd ered By: Troy Sabino on 04-18-2023 Lymphocytes Auto (Unsp spec) [#/Vol] 1.91 10*3/uL 0.83-4.51 [facility] Automated lymphocyte count a s percentage of total leukocytesOrdered By: Troy Gallo on 04-18-2023 Lymphocytes/100 WBC Auto (Unsp spec) 34.9 % 19-41 [facility] Basophil percentageOrdered B y: Troy Gallo on 04-18-2023 Basophils/100 WBC (Bld) 1.1 % 0-1 [facility] Eosinophils/100 WBC (Bld) 6.0 % 0-5 [facility] Hemoglobin (Bld) [Mass/Vol] 11.0 g/dL 12.0-15.0 [facility] Monocytes/100 WBC (Bld) 9.9 % 0-10 [facility] Neutrophils (Bld) [#/Vol] 2.6 10*3/uL 2.0-7.7 [facility] Neutrophils/100 WBC (Bld) 47.7 % 47-70 [facility] WBC (Bld) [#/Vol] 5.5 10*3/uL 4.4-11.0 [facility] Determination of erythrocyte mean corpuscular volume (MCV)Ordered By: Troy Gallo on 04-18-2023 MCV (RBC) [Entitic vol] 81.5 fL 81-99 [facility] Erythrocyte distribution wid th ratioOrdered By: Troy Gallo on 04-18-2023 Erythrocyte distribution width (RBC) [Ratio] 15.2 % 11.6-14.6 [facility] Erythrocyte distribution wid th standard deviationOrdered By: Troy Gallo on 04-18-2023 Erythrocyte distribution width (RBC) [Entitic vol] 44.8 fL 35.1-43.9 [facility] Hematocrit Auto (Bld) [Volum e fraction]Ordered By: Troy Gallo on 04-18-2023 Hematocrit (Bld) [Volume fraction] 35.6 % 37-47 [facility] Immature granulocytes/100 WB C Auto (Bld)Ordered By: Troy Gallo on 04-18-2023 Immature granulocytes/100 WBC (Bld) 0.400 % 0.0-0.9 [facility] Comment on above: IG% - Immature Granu locytes (promyelocytes, myelocytes and metamyelocytes) > 1% indicates that a LEFT SHIFT is Present. Laboratory - Hematology and Cell countsOrdered By: Troy Gallo on 04-18-2023 MCH (RBC) [Entitic mass] 25.2 pg 27.0-32.0 [facility] MCHC (RBC) [Mass/Vol] 30.9 g/dL 32-36 [facility] Nucleated RBC/100 WBC (Bld) [Ratio] 0 % 0-5 [facility] Platelet mean volume (Bld) [Entitic vol] 11.9 fL 6.2-12.0 [facility] Platelets (Bld) [#/Vol] 180 10*3/uL 150-450 [facility] RBC Auto (Bld) [#/Vol]Ordere d By: Troy Gallo on 04-18-2023 RBC (Bld) [#/Vol] 4.37 10*6/uL 4.2-5.4 [facility] COVID-19 virus antigen assay Ordered By: Troy Gallo on 04-13-2023 SARS-CoV-2 (COVID-19) Ag IA.rapid Ql (Resp) [facility] SARS-CoV-2 (COVID-19) Ag IA.rapid Ql (Resp) [facility] Blood manual differential co mment interpretation (narrative result)Ordered By: Troy Gallo on 04-04-2023 Manual differential comment Scott (Bld) [Interp] SCANNED [facility] Blood platelet adequacy dete ction by light microscopyOrdered By: Troy Gallo on 04-04-2023 Platelets LM Ql (Bld) ADEQUATE ADEQ [facility] Blood platelet morphology de termination (nominal result)Ordered By: Troy Gallo on 04-04-2023 Platelet morphology finding Nom (Bld) CLUMPED [facility] Absolute lymphocyte countOrd ered By: Ethan Yip on 04-03-2023 Lymphocytes Auto (Unsp spec) [#/Vol] 1.38 10*3/uL 0.83-4.51 [facility] Automated lymphocyte count a s percentage of total leukocytesOrdered By: Ethan Yip on 04-03-2023 Lymphocytes/100 WBC Auto (Unsp spec) 23.9 % 19-41 [facility] Basophil percentageOrdered B y: Ethan Yip on 04-03-2023 Basophils/100 WBC (Bld) 0.5 % 0-1 [facility] Chloride [Moles/Vol] 116 mmol/L 98-107 [facility] Eosinophils/100 WBC (Bld) 4.9 % 0-5 [facility] Glucose [Mass/Vol] 132 mg/dL 74-106 [facility] Comment on above: Fasting Glucose resu lt greater than or equal to 126 mg/dL suggests DIABETES MELLITUS per A.D.A. criteria. Hemoglobin (Bld) [Mass/Vol] 10.9 g/dL 12.0-15.0 [facility] Monocytes/100 WBC (Bld) 14.6 % 0-10 [facility] Neutrophils (Bld) [#/Vol] 3.2 10*3/uL 2.0-7.7 [facility] Neutrophils/100 WBC (Bld) 55.4 % 47-70 [facility] Potassium [Moles/Vol] 3.6 mmol/L 3.5-5.1 [facility] Sodium [Moles/Vol] 144 mmol/L 136-145 [facility] WBC (Bld) [#/Vol] 5.8 10*3/uL 4.4-11.0 [facility] Determination of erythrocyte mean corpuscular volume (MCV)Ordered By: Ethan Yip on 04-03-2023 MCV (RBC) [Entitic vol] 81.1 fL 81-99 [facility] Erythrocyte distribution wid th ratioOrdered By: Ethan Yip on 04-03-2023 Erythrocyte distribution width (RBC) [Ratio] 14.9 % 11.6-14.6 [facility] Erythrocyte distribution wid th standard deviationOrdered By: Ethan Yip on 04-03-2023 Erythrocyte distribution width (RBC) [Entitic vol] 43.9 fL 35.1-43.9 [facility] Hematocrit Auto (Bld) [Volum e fraction]Ordered By: Ethan Yip on 04-03-2023 Hematocrit (Bld) [Volume fraction] 34.8 % 37-47 [facility] Immature granulocytes/100 WB C Auto (Bld)Ordered By: Ethan Yip on 04-03-2023 Immature granulocytes/100 WBC (Bld) 0.700 % 0.0-0.9 [facility] Comment on above: IG% - Immature Granu locytes (promyelocytes, myelocytes and metamyelocytes) > 1% indicates that a LEFT SHIFT is Present. Laboratory - Chemistry and C hemistry - challengeOrdered By: Ethan Yip on 04-03-2023 CO2 [Moles/Vol] 25.0 mmol/L 21.0-32.0 [facility] Urea nitrogen/Creatinine [Mass ratio] 25.1 mg/mg 10-20 [facility] Laboratory - Hematology and Cell countsOrdered By: Ethan Yip on 04-03-2023 MCH (RBC) [Entitic mass] 25.4 pg 27.0-32.0 [facility] MCHC (RBC) [Mass/Vol] 31.3 g/dL 32-36 [facility] Nucleated RBC/100 WBC (Bld) [Ratio] 0 % 0-5 [facility] Platelets (Bld) [#/Vol] 121 10*3/uL 150-450 [facility] No Panel InformationOrdered By: Ethan Yip on 04-03-2023 Estimated Creatinine Clearance Calc 79.64 ml/min [facility] Estimated GFR (MDRD) Amer 93 mL/min >60 [facility] Comment on above: GFR Calc Estimated GFR (MDRD) Non-Af Amer 77 mL/min >60 [facility] Comment on above: Non- GFR Calc Platelet mean volume [place]re[place]-Ec ker (Bld) [Entitic vol]Ordered By: Ethan Yip on 04-03-2023 Platelet mean volume (Bld) [Entitic vol] 12.3 fL 6.2-12.0 [facility] RBC Auto (Bld) [#/Vol]Ordere d By: Ethan Yip on 04-03-2023 RBC (Bld) [#/Vol] 4.29 10*6/uL 4.2-5.4 [facility] Serum or plasma calcium nadeem urement (mass/volume)Ordered By: Ethan Yip on 04-03-2023 Calcium [Mass/Vol] 9.4 mg/dL 8.5-10.1 [facility] Serum or plasma creatinine m easurement (mass/volume)Ordered By: Ethan Yip on 04-03-2023 Creatinine [Mass/Vol] 0.80 mg/dL 0.55-1.02 [facility] Comment on above: The validity of the calculated GFR & GFRAA in patients over 70 years has not been determined. Clinical correlation is essential. Serum or plasma urea nitroge n measurement (mass/volume)Ordered By: Ethan Yip on 04-03-2023 Urea nitrogen [Mass/Vol] 20 mg/dL 7-18 [facility] Thin prep Papanicolaou smear with manual screeningOrdered By: Ethan Yip on 04-03-2023 Thin prep Papanicolaou smear with manual screening 191 mg/dL 74-106 [facility] Comment on above: MANAGEMENT OF PATIEN T CARE PER NURSING PROTOCOL Thin prep Papanicolaou smear with manual screening 3 5-15 [facility] Thin prep Papanicolaou smear with manual screening 120 mg/dL 74-106 [facility] Comment on above: MANAGEMENT OF PATIEN T CARE PER NURSING PROTOCOL Activated partial thrombopla stin time (aPTT) in platelet poor plasma by coagulation aOrdered By: Noa Lao on 04-02-2023 aPTT Coag (PPP) [Time] 36.9 s 24.1-36.2 [facility] Basophil percentageOrdered B y: Noa Lao on 04-01-2023 Basophil percentage 3.5 mg/dL 2.5-4.9 [facility] Bilirubin [Mass/Vol] 0.60 mg/dL 0.20-1.00 [facility] Comment on above: For patients on eltr ombopag therapy, use of Dimension Amonate TBIL is not recommended. Protein [Mass/Vol] 6.6 g/dL 6.4-8.2 [facility] Laboratory - Chemistry and C hemistry - challengeOrdered By: Noa Lao on 04-01-2023 Albumin/Globulin [Mass ratio] 0.6 {ratio} 0.9-2.4 [facility] ALP [Catalytic activity/Vol] 94 U/L 45-117 [facility] ALT [Catalytic activity/Vol] 25 U/L 13-56 [facility] Globulin (S) [Mass/Vol] 4.0 g/dL 2.2-4.2 [facility] Magnesium [Mass/Vol] 1.7 mg/dL 1.6-2.6 [facility] [place] No Panel InformationOrdered By: Ethan Yip on 04-01-2023 Free Triiodothyronine (T3) pg/dL 3.1 pg/mL 2.18-3.98 [facility] No Panel InformationOrdered By: Noa Lao on 04-01-2023 Troponin I High Sensitivity 43 pg/mL 3.0-54.0 [facility] Comment on above: Please Note: New Monique t Units and Gender Specific Reference Ranges. For more information see Policy Stat Procedure Amonate High Sensitivity Troponin (TNIH) and attachments. Serum or plasma thyroperoxid ase antibody assay (units/volume)Ordered By: Ethan Yip on 04-01-2023 TPO Ab Qn 14 [IU]/mL 0-34 [facility] Comment on above: Performed at: [address] [id number] Director: Ludivina Wolfe MD, Phone: [phone] at: - [facility] [address] [id number] Director: Sim Cordova PhD, Phone: [phone] Thin prep Papanicolaou smear with manual screeningOrdered By: Noa Lao on 04-01-2023 Thin prep Papanicolaou smear with manual screening 2.6 g/dL 3.2-5.0 [facility] Thin prep Papanicolaou smear with manual screening 25 U/L 15-37 [facility] Thin prep Papanicolaou smear with manual screeningOrdered By: Ethan Yip on 04-01-2023 Thin prep Papanicolaou smear with manual screening 2.60 ng/dL 0.76-1.46 [facility] Thyroid stimulating immunogl obulins detectionOrdered By: Ethan Yip on 04-01-2023 Thyroid stimulating immunoglobulins Ql (S) 0.98 IU/L 0.00-0.55 [facility] Basophil percentageOrdered B y: Luis Mcdonald on 03-31-2023 Basophil percentage 0 SEEN /hpf 0-5 [facility] [place] Bilirubin Test strip Ql (U)O rdered By: Luis Mcdonald on 03-31-2023 Bilirubin Ql (U) Negative Negative [facility] Blood manual differential co mment interpretation (narrative result)Ordered By: Luis Mcdonald on 03-31-2023 Manual differential comment Scott (Bld) [Interp] SCANNED [facility] Blood platelet morphology de termination (nominal result)Ordered By: Luis Mcdonald on 03-31-2023 Platelet morphology finding Nom (Bld) LARGE [facility] International normalized rat io (INR) calculationOrdered By: Noa Lao on 03-31-2023 INR Coag (PPP) [Relative time] 1.2 {INR} [facility] Ketones Test strip Ql (U)Ord ered By: Luis Mcdonald on 03-31-2023 Ketones Ql (U) 15 mg/dl Negative [facility] Laboratory - CoagulationOrde red By: Noa Lao on 03-31-2023 PT Coag (PPP) [Time] 14.7 s 11.7-14.9 [facility] [place] Mucus LM Ql (Urine sed)Order ed By: Luis Mcdonald on 03-31-2023 Mucus Ql (Urine sed) 0 SEEN /hpf [facility] Nitrite Test strip Ql (U)Ord ered By: Luis Mcdonald on 03-31-2023 Nitrite Ql (U) Negative Negative [facility] No Panel InformationOrdered By: Luis Mcdonald on 03-31-2023 Urine RBC 0 SEEN /hpf 0-5 [facility] Protein Test strip Ql (U)Ord ered By: Luis Mcdonald on 03-31-2023 Protein Ql (U) 100 mg/dl Negative [facility] Serum or plasma thyroid stim ulating hormone (TSH) measurement (units/volume)Ordered By: Noa Lao on 03-31-2023 TSH Qn < 0.01 uIU/mL 0.358-3.74 [facility] Squamous epithelial cells de tection in urine sediment by light microscopyOrdered By: Luis Mcdonald on 03-31-2023 Epithelial cells.squamous LM Ql (Urine sed) 0 SEEN /hpf 5-10 [facility] Urine blood detectionOrdered By: Luis Mcdonald on 03-31-2023 RBC Ql (U) Negative Negative [facility] Urine clarityOrdered By: Glendy Mcdonald on 03-31-2023 Clarity (U) Sl. Cloudy Clear [facility] Urine color determinationOrd ered By: Luis Mcdonald on 03-31-2023 Color (U) Yellow Yellow [facility] Urine glucose detectionOrder ed By: Luis Mcdonald on 03-31-2023 Glucose Ql (U) Normal mg/dl Normal [facility] Urine leukocyte esterase det ection by dipstickOrdered By: Luis Mcdonald on 03-31-2023 Leukocyte esterase Test strip Ql (U) Negative Negative [facility] Urine pHOrdered By: Luis Mcdonald on 03-31-2023 pH (U) 5.0 [pH] 5.0 - 8.0 [facility] Urine sediment bacteria coun t by microscopy (number/high power field)Ordered By: Luis Mcdonald on 03-31-2023 Bacteria LM.HPF (Urine sed) [#/Area] 0 /[HPF] None Seen [facility] Urine specific gravity measu rementOrdered By: Lusi Mcdonald on 03-31-2023 Specific gravity (U) [Rel density] 1.025 1.002-1.030 [facility] Urine urobilinogen measureme ntOrdered By: Luis Mcdonald on 03-31-2023 Urobilinogen Ql (U) Normal mg/dl Normal [facility] CBC panel Auto (Bld)on 02-14 Erythrocyte distribution width (RBC) [Ratio] 15.1 % High 11.5 - 15.0 % [facility] Hematocrit (Bld) [Volume fraction] 38.3 % 36.0 - 46.0 % [facility] Hemoglobin (Bld) [Mass/Vol] 11.8 g/dL 11.5 - 15.5 g/dL [facility] MCH (RBC) [Entitic mass] 25.7 pg Low 26. 0 - 34.0 pg [facility] MCHC (RBC) [Mass/Vol] 30.8 g/dL 30.5 - 36.0 g/dL [facility] MCV (RBC) [Entitic vol] 83.3 fL 80.0 - 100.0 fL [facility] Nucleated RBC (Bld) [#/Vol] <0.01 k/uL [facility] Platelet mean volume (Bld) [Entitic vol] 12.4 fL 9.0 - 12.7 fL [facility] Platelets (Bld) [#/Vol] 222 10*3/uL 150 - 400 k/uL [facility] RBC (Bld) [#/Vol] 4.60 10*6/uL 3.90 - 5.2 0 m/uL [facility] WBC (Bld) [#/Vol] 12.67 10*3/uL High 3.70 - 11 .00 k/uL [facility] Comprehensive metabolic 2000 panelon 02-14-2022 Albumin [Mass/Vol] 3.7 g/dL Low 3.9 - 4.9 g/dL [facility] ALP [Catalytic activity/Vol] 96 U/L 34 - 123 U/L [facility] ALT [Catalytic activity/Vol] 26 U/L 7 - 38 U/L [facility] Anion gap [Moles/Vol] 11 mmol/L 9 - 18 mmol/L [facility] AST [Catalytic activity/Vol] 18 U/L 13 - 35 U/L [facility] Bilirubin [Mass/Vol] 0.3 mg/dL 0.2 - 1 .3 mg/dL [facility] Calcium [Mass/Vol] 9.5 mg/dL 8.5 - 10. 2 mg/dL [facility] Chloride [Moles/Vol] 104 mmol/L 97 - 10 5 mmol/L [facility] CO2 [Moles/Vol] 25 mmol/L 22 - 30 mmol/L [facility] Creatinine [Mass/Vol] 0.75 mg/dL 0.58 - 0.96 mg/dL [facility] Estimated Glomerular Filtration Rate 89 mL/min/1.73m >=60 mL/min/1.73m [facility] Glucose [Mass/Vol] 103 mg/dL High 74 - 99 mg/dL [facility] Potassium [Moles/Vol] 4.4 mmol/L 3.7 - 5.1 mmol/L [facility] Protein [Mass/Vol] 6.6 g/dL 6.3 - 8.0 g/dL [facility] Sodium [Moles/Vol] 140 mmol/L 136 - 144 mmol/L [facility] Urea nitrogen [Mass/Vol] 24 mg/dL High 7 - 21 mg/d L [facility] HbA1c (Bld)on 02-14-2022 Average glucose Estimated from glycated hemoglobin (Bld) [Mass/Vol] 126 mg/dL [facility] HbA1c (Bld) [Mass fraction] 6.0 % High 4.3 - 5.6 % [facility] LIPID PANEL, NONFASTINGon Cholesterol [Mass/Vol] 207 mg/dL High <200 mg/dL [facility] HDL Cholesterol, Nonfasting 37 mg/dL Low >39 mg/dL [facility] LDL Cholesterol, Nonfasting 140 mg/dL High <100 mg/dL [facility] LDL/HDL Ratio, Nonfasting 3.78 mg/dL High <2.54 mg/dL [facility] Non HDL Cholesterol, Nonfasting 170 mg/dL High <130 mg/dL [facility] Total Chol/HDL Ratio, Nonfasting 5.59 mg/dL High <5.10 mg/dL [facility] Triglycerides, Nonfasting 149 mg/dL <150 mg/dL [facility] VLDL Cholesterol, Nonfasting 30 mg/dL High <30 mg/dL [facility] PROTEIN CREATININE RATIOon 1 04-17-2021 Protein/Creatinine (U) [Mass ratio] 1.22 mg/mg High <0.15 mg/mg [facility] Protein/Creatinine (U) [Mass ratio]on 02-14-2022 Creatinine (U) [Mass/Vol] 42.6 mg/dL 20.0 - 300.0 mg/dL [facility] Protein (U) [Mass/Vol] 52 mg/dL High 0 - 20 mg/dL [facility] VITAMIN D 25 HYDROXYon 02-14 25-hydroxyvitamin D3 [Mass/Vol] 51.5 ng/mL 31.0 - 80.0 ng/mL [facility] XR Foot - right AP and Later al and obliqueon 10-26-2020 IMPRESSION: No acute process. Degenerative change and calcaneal spurs. 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: [facility] Transcribe Date/Time: Oct 26 2020 1:27P Dictated by : FAYE TURCIOS MD This examination was interpreted and the report reviewed and electronically signed by: FAYE TURCIOS MD on Oct 26 2020 1:30PM [facility] DIVISION OF RADIOLOGY * * *Final Report* * * DATE OF EXAM: Oct 26 2020 1:25PM [id number] - XR FOOT 3V AP/LAT/OBL RT / PROCEDURE REASON: Foot pain, right * * * * Physician Interpretation * * * * EXAMINATION: XR FOOT 3V AP/LAT/OBL RT HISTORY: Patient states right foot pain after stepping down on it Thursday- non- weight bearing, exam done table top. Foot pain, right. TECHNIQUE: XR FOOT 3V AP/LAT/OBL RT Laterality: RIGHT Number of different views (projections): 3 M: XB_1 COMPARISON: There are no prior relevant studies for comparison. RESULT: AP, oblique and lateral nonweightbearing views of the right foot show no acute osseous or articular process. There is mild forefoot soft tissue swelling. Mild osteoarthrosis of the IP joints and the second through fifth metatarsal tarsal joints present. No associated erosive process. Lateral view demonstrates large calcaneal spurs at the Achilles tendon and plantar fascial insertions. DIVISION OF RADIOLOGY Provider, [facility] [place] - 10/26/2020 * * *Final Report* * * DATE OF EXAM: Oct 26 2020 1:25PM [id number] - XR FOOT 3V AP/LAT/OBL RT / PROCEDURE REASON: Foot pain, right * * * * Physician Interpretation * * * * EXAMINATION: XR FOOT 3V AP/LAT/OBL RT HISTORY: Patient states right foot pain after stepping down on it Thursday- non- weight bearing, exam done table top. Foot pain, right. TECHNIQUE: XR FOOT 3V AP/LAT/OBL RT Laterality: RIGHT Number of different views (projections): 3 M: XB_1 COMPARISON: There are no prior relevant studies for comparison. RESULT: AP, oblique and lateral nonweightbearing views of the right foot show no acute osseous or articular process. There is mild forefoot soft tissue swelling. Mild osteoarthrosis of the IP joints and the second through fifth metatarsal tarsal joints present. No associated erosive process. Lateral view demonstrates large calcaneal spurs at the Achilles tendon and plantar fascial insertions. IMPRESSION IMPRESSION: No acute process. Degenerative change and calcaneal spurs. 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: [employer] Transcribe Date/Time: Oct 26 2020 1:27P Dictated by : FAYE TURCIOS MD This examination was interpreted and the report reviewed and electronically signed by: FAYE TURCIOS MD on Oct 26 2020 1:30PM [facility] Radiology Study observation (narrative) [facility] XR Foot - right AP and Later al and obliqueOrdered By: [facility] Provider on 10-26-2020 [facility] Vital Signs Date Time Vital Sign Value Performing Clinician Facility 10-18-2024 19:30-0400 Body temperature 99 [degF] [facility]: [facility] 10-18-2024 19:30-0400 Diastolic blood pressure 75 mm[Hg] [facility] Work Phone: [facility] 10-18-2024 19:30-0400 Heart rate 71 /min [facility] Work Phone: 7(488)453-411153 [place] [address] 10-18-2024 19:30-0400 Respiratory rate 18 /min CLEMENCIA BELARDO Work Phone: 8(317)015-554853 [place] [address] 10-18-2024 19:30-0400 SaO2% (BldA) [Mass fraction] 98 % [facility]MENC[facility] BELARDO Work Phone: 8(633)154-332353 [place] [address] 10-18-2024 19:30-0400 Systolic blood pressure 137 mm[Hg] [facility]MENC[facility] BELARDO Work Phone: 8(263)876-171453 [place] [address] 10-18-2024 17:19-0400 Body height 157.48 cm CLEMENCIA BELARDO Work Phone: 2(911)739-943653 [place] [address] 10-18-2024 17:19-0400 Body mass index (BMI) [Ratio] 41.5 kg/m2 [facility]MENC[facility] BELARDO Work Phone: 8(473)214-606153 [place] [address] 10-18-2024 17:19-0400 Body weight 102.9 kg CLEMENCIA BELARDO Work Phone: 1(768)736-539253 [place] [address] 08-15-2024 15:05-0400 Body temperature 98.6 [degF] CLEMENCIA BELARDO Work Phone: 7(243)376-364653 [place] [address] 08-15-2024 15:05-0400 Diastolic blood pressure 66 mm[Hg] CLEMENCIA BELARDO Work Phone: 4(525)893-297153 [place] [address] 08-15-2024 15:05-0400 Heart rate 70 /min CLEMENCIA BELARDO Work Phone: 5(000)864-748253 [place] [address] 08-15-2024 15:05-0400 Respiratory rate 18 /min CLEMENCIA BELARDO Work Phone: 7(673)505-622153 [place] [address] 08-15-2024 15:05-0400 SaO2% (BldA) [Mass fraction] 96 % CLEMENCIA BELARDO Work Phone: 4(010)570-975853 [place] [address] 08-15-2024 15:05-0400 Systolic blood pressure 126 mm[Hg] CLEMENCIA BELARDO Work Phone: 2(942)565-579653 [place] [address] 08-15-2024 12:37-0400 Body height 157.48 cm CLEMENCIA BELARDO Work Phone: 5(490)767-203053 [place] [address] 08-15-2024 12:37-0400 Body mass index (BMI) [Ratio] 41.3 kg/m2 CLEMENCIA BELARDO Work Phone: 0(523)980-841653 [place] [address] 08-15-2024 12:37-0400 Body weight 102.5 kg CLEMENCIA BELARDO Work Phone: 6(582)422-273253 [place] [address] 07-29-2024 17:00-0400 Diastolic blood pressure 68 mm[Hg] CLEMENCIA BELARDO Work Phone: 3(121)010-312153 [place] [address] 07-29-2024 17:00-0400 Heart rate 93 /min CLEMENCIA BELARDO Work Phone: 7(854)696-208353 [place] [address] 07-29-2024 17:00-0400 Respiratory rate 20 /min CLEMENCIA BELARDO Work Phone: 6(549)437-421753 [place] [address] 07-29-2024 17:00-0400 SaO2% (BldA) [Mass fraction] 100 % CLEMENCIA BELARDO Work Phone: 2(857)878-774953 [place] [address] 07-29-2024 17:00-0400 Systolic blood pressure 156 mm[Hg] CLEMENCIA BELARDO Work Phone: 3(491)229-998553 [place] [address] 07-29-2024 15:06-0400 Body temperature 98.4 [degF] CLEMENCIA BELARDO Work Phone: 2(677)890-993853 [place] [address] 07-29-2024 09:29-0400 Body height 157.48 cm CLEMENCIA BELARDO Work Phone: 8(859)277-882253 [place] [address] 07-29-2024 09:29-0400 Body mass index (BMI) [Ratio] 41.4 kg/m2 CLEMENCIA BELARDO Work Phone: 1(474)276-961153 [place] [address] 07-29-2024 09:29-0400 Body weight 102.7 kg CLEMENCIA BELARDO Work Phone: 0(822)741-306453 [place] [address] 05-08-2023 21:00-0500 Body temperature 97.6 [degF] Dr. Sagrario Perez Work Phone: 0(862)849-381619 [place] [address] 05-08-2023 21:00-0500 Diastolic blood pressure 56 mm[Hg] Dr. Sagrario Perez Work Phone: 9(406)972-100077 [place] [address] 05-08-2023 21:00-0500 Heart rate 90 /min Dr. Sagrario Perez Work Phone: 1(955)353-082677 [place] [address] 05-08-2023 21:00-0500 Respiratory rate 16 /min Dr. Sagrario Perez Work Phone: 3(931)860-858777 [place] [address] 05-08-2023 21:00-0500 SaO2% (BldA) [Mass fraction] 98 % Dr. Sagrario Perez Work Phone: 2(126)155-078377 [place] [address] 05-08-2023 21:00-0500 Systolic blood pressure 149 mm[Hg] Dr. Sagrario Perez Work Phone: 8(291)329-261377 [place] [address] 05-08-2023 19:50-0500 Body mass index (BMI) [Ratio] 42.3 kg/m2 Dr. Sagrario Perez Work Phone: 6(027)296-690577 [place] [address] 05-08-2023 19:50-0500 Body weight 104.[address] Sagrairo Perez Work Phone: 8(373)402-615077 [place] [address] 05-08-2023 19:19-0500 Body height 157.[address] Sagrario Perez Work Phone: 2(420)523-652877 [place] [address] 05-04-2023 09:20-0500 Body mass index (BMI) [Ratio] 38.9 kg/m2 Dr. Sagrario Perez Work Phone: 9(661)256-914677 [place] [address] 05-04-2023 09:20-0500 Body weight 99.[address] Sagrario Perez Work Phone: 6(184)845-781377 [place] [address] 05-04-2023 09:20-0500 Diastolic blood pressure 81 mm[Hg] Dr. Sagrario Perez Work Phone: 6(139)983-274877 [place] [address] 05-04-2023 09:20-0500 Heart rate 59 /min Dr. Sagrario Perez Work Phone: [facility] 05-04-2023 09:20-0500 Respiratory rate 20 /min Dr. Sagrario Perez Work Phone: [facility] 05-04-2023 09:20-0500 Systolic blood pressure 140 mm[Hg] Dr. Sagrario Perez Work Phone: [facility] 05-01-2023 15:51-0500 Body temperature 98.4 [degF] Dr. Sagrario Perez Work Phone: [facility] 05-01-2023 15:51-0500 Heart rate 60 /min Dr. Sagrario Perez Work Phone: [facility] 05-01-2023 15:51-0500 Respiratory rate 16 /min Dr. Sagrario Perez Work Phone: [facility] 05-01-2023 15:51-0500 SaO2% (BldA) [Mass fraction] 95 % Dr. Sagrario Perez Work Phone: [facility] 04-28-2023 12:03-0500 Diastolic blood pressure 70 mm[Hg] Sagrario Perez MD Work Phone: [facility] 04-28-2023 12:03-0500 Heart rate 56 /min Sagrario Perez MD Work Phone: [facility] 04-28-2023 12:03-0500 SaO2% (BldA) [Mass fraction] 96 % Sagrario Perez MD Work Phone: [facility] 04-28-2023 12:03-0500 Systolic blood pressure 128 mm[Hg] Sagrario Perez MD Work Phone: [facility] 04-23-2023 15:06-0500 Body temperature 97.8 [degF] Dr. Sagrario Perez Work Phone: [facility] 04-23-2023 15:06-0500 Diastolic blood pressure 59 mm[Hg] Dr. Sagrario Perez Work Phone: 1(925)227-604677 [place] [address] 04-23-2023 15:06-0500 Heart rate 73 /min Dr. Sagrario Perez Work Phone: 2(967)784-942777 [place] [address] 04-23-2023 15:06-0500 Respiratory rate 18 /min Dr. Sagrario Perez Work Phone: 1(930)028-677077 [place] [address] 04-23-2023 15:06-0500 SaO2% (BldA) [Mass fraction] 95 % Dr. Sagrario Perez Work Phone: 6(870)127-668577 [place] [address] 04-23-2023 15:06-0500 Systolic blood pressure 112 mm[Hg] Dr. Sagrario Perez Work Phone: 9(324)277-749177 [place] [address] 04-21-2023 14:36-0500 Body mass index (BMI) [Ratio] 39.4 kg/m2 Dr. Sagrario Perez Work Phone: 3(642)467-985277 [place] [address] 04-21-2023 14:36-0500 Body weight 101.[address] Sagrario Perez Work Phone: 8(715)604-491977 [place] [address] 04-15-2023 12:52-0500 Body height 160.[address] Sagrario Perez Work Phone: 3(958)261-539177 [place] [address] 04-03-2023 08:28-0500 Diastolic blood pressure 91 mm[Hg] Dr. Sagrario Perez Work Phone: 8(084)931-138177 [place] [address] 04-03-2023 08:28-0500 Heart rate 91 /min Dr. Sagrario Perez Work Phone: 3(477)652-251777 [place] [address] 04-03-2023 08:28-0500 Systolic blood pressure 159 mm[Hg] Dr. Sagrario Perez Work Phone: 2(982)565-504877 [place] [address] 04-03-2023 08:21-0500 Body temperature 98.4 [degF] Dr. Sagrario Perez Work Phone: 2(794)320-857177 [place] [address] 04-03-2023 08:21-0500 Respiratory rate 14 /min Dr. Sagrario Perez Work Phone: [facility] 04-03-2023 08:21-0500 SaO2% (BldA) [Mass fraction] 92 % Dr. Sagrario Perez Work Phone: [facility] 04-03-2023 06:00-0500 Body mass index (BMI) [Ratio] 39.5 kg/m2 Dr. Sagrario Perez Work Phone: [facility] 04-03-2023 06:00-0500 Body weight 101.[address] Sagrario ePrez Work Phone: [facility] 04-01-2023 14:07-0500 Body height 160.[address] Sagrario Perez Work Phone: [facility] 12-26-2022 09:37-0400 Body weight 102.97 kg Danielle Benedict INSTRUCTOR TECHNICAL TRAINING.[employer] SAL[employer] REPRESENTATIVE Work Phone: [facility] 12-26-2022 09:37-0400 Diastolic blood pressure 65 mm[Hg] Danielle Benedict INSTRUCTOR TECHNICAL TRAINING.[employer] SALES REPRESENTATIVE Work Phone: [facility] 12-26-2022 09:37-0400 Heart rate 89 /min Danielle Benedict INSTRUCTOR TECHNICAL TRAINING.[employer] SALES REPRESENTATIVE Work Phone: [facility] 12-26-2022 09:37-0400 Respiratory rate 16 /min Danielle Benedict INSTRUCTOR TECHNICAL TRAINING.[employer] SALES REPRESENTATIVE Work Phone: [facility] 12-26-2022 09:37-0400 Systolic blood pressure 146 mm[Hg] Danielle Benedict INSTRUCTOR TECHNICAL TRAINING.[employer]EL[employer] SALES REPRESENTATIVE Work Phone: [facility] 10-08-2022 15:31-0400 Diastolic blood pressure 70 mm[Hg] Sagrario Perez MD Work Phone: [facility] 10-08-2022 15:31-0400 Systolic blood pressure 114 mm[Hg] Sagrario Perez MD Work Phone: [facility] 10-08-2022 14:42-0400 Body temperature 98.6 [degF] Sagrario Perez MD Work Phone: [facility] 10-08-2022 14:42-0400 Body weight 105.69 kg Sagrario Perez MD Work Phone: [facility] 10-08-2022 14:42-0400 Heart rate 101 /min Sagrario Perez MD Work Phone: [facility] 10-08-2022 14:42-0400 Respiratory rate 18 /min Sagrario Perez MD Work Phone: [facility] 10-08-2022 14:42-0400 SaO2% (BldA) [Mass fraction] 96 % Sagrario Perez MD Work Phone: [facility] 08-22-2022 08:22-0400 Diastolic blood pressure 90 mm[Hg] Billie Gabriela INSTRUCTOR TECHNICAL TRAINING[employer] Work Phone: [facility] 08-22-2022 08:22-0400 Systolic blood pressure 130 mm[Hg] Billie Gabriela INSTRUCTOR TECHNICAL TRAINING[employer] Work Phone: [facility] 08-22-2022 08:20-0400 Body weight 104.78 kg Billie Gabriela INSTRUCTOR TECHNICAL TRAINING[employer] Work Phone: [facility] 08-22-2022 08:20-0400 Heart rate 99 /min Billie Gabriela INSTRUCTOR TECHNICAL TRAINING[employer] Work Phone: [facility] [facility] 08-22-2022 08:20-0400 SaO2% (BldA) [Mass fraction] 98 % Billie Gabriela INSTRUCTOR TECHNICAL TRAINING.[employer] Work Phone: [facility] 08-14-2022 14:31-0400 Diastolic blood pressure 84 mm[Hg] Faith Dahlhausen INSTRUCTOR TECHNICAL TRAINING.[employer] Work Phone: [facility] 08-14-2022 14:31-0400 Heart rate 99 /min Faith Dahlhausen INSTRUCTOR TECHNICAL TRAINING.[employer] Work Phone: [facility] 08-14-2022 14:31-0400 Systolic blood pressure 173 mm[Hg] Faith Dahlhausen INSTRUCTOR TECHNICAL TRAINING.[employer] Work Phone: [facility] 08-14-2022 13:46-0400 Body temperature 97.81 [degF] Faith Dahlhausen INSTRUCTOR TECHNICAL TRAINING.[employer] Work Phone: [facility] 08-14-2022 13:46-0400 Body weight 102.33 kg Faith Dahlhausen INSTRUCTOR TECHNICAL TRAINING.[employer] Work Phone: [facility] 08-14-2022 13:46-0400 Respiratory rate 18 /min Faith Dahlhausen INSTRUCTOR TECHNICAL TRAINING.[employer] Work Phone: [facility] 08-14-2022 13:46-0400 SaO2% (BldA) [Mass fraction] 99 % Faith Dahlhausen INSTRUCTOR TECHNICAL TRAINING.[employer] Work Phone: [facility] 04-10-2022 13:31-0500 Body temperature 97.9 [degF] Faith Dahlhausen INSTRUCTOR TECHNICAL TRAINING.[employer] Work Phone: [facility] 04-10-2022 13:31-0500 Body weight 108.14 kg Faith Dahlhausen INSTRUCTOR TECHNICAL TRAINING.[employer] Work Phone: [facility] 04-10-2022 13:31-0500 Diastolic blood pressure 74 mm[Hg] Faith Dahlhausen INSTRUCTOR TECHNICAL TRAINING.[employer] Work Phone: [facility] 04-10-2022 13:31-0500 Heart rate 72 /min Faith Dahlhausen INSTRUCTOR TECHNICAL TRAINING.[employer] Work Phone: [facility] 04-10-2022 13:31-0500 Respiratory rate 18 /min Faith Dahlhausen INSTRUCTOR TECHNICAL TRAINING.[employer] Work Phone: [facility] 04-10-2022 13:31-0500 SaO2% (BldA) [Mass fraction] 95 % Faith Dahlhausen INSTRUCTOR TECHNICAL TRAINING.[employer] Work Phone: [facility] 04-10-2022 13:31-0500 Systolic blood pressure 125 mm[Hg] Faith Dahlhausen INSTRUCTOR TECHNICAL TRAINING.[employer] Work Phone: [facility] 02-10-2022 17:11-0500 Body weight 110.68 kg Sagrario Perez MD Work Phone: [facility] 02-10-2022 17:11-0500 Diastolic blood pressure 72 mm[Hg] Sagrario Perez MD Work Phone: [facility] 02-10-2022 17:11-0500 Heart rate 94 /min Sagrario Perez MD Work Phone: [facility] 02-10-2022 17:11-0500 SaO2% (BldA) [Mass fraction] 96 % Sagrario Perez MD Work Phone: [facility] 02-10-2022 17:11-0500 Systolic blood pressure 122 mm[Hg] Sagrario Perez MD Work Phone: [facility] 11-28-2021 13:37-0400 Body temperature 97.59 [degF] Faith Dahlhausen INSTRUCTOR TECHNICAL TRAINING.[employer] Work Phone: [facility] 11-28-2021 13:37-0400 Body weight 110.22 kg Faith Dahlhausen INSTRUCTOR TECHNICAL TRAINING.[employer] Work Phone: [facility] 11-28-2021 13:37-0400 Diastolic blood pressure 82 mm[Hg] Faith Dahlhausen INSTRUCTOR TECHNICAL TRAINING.[employer] Work Phone: [facility] 11-28-2021 13:37-0400 Heart rate 100 /min Faith Dahlhausen INSTRUCTOR TECHNICAL TRAINING.[employer] Work Phone: [facility] 11-28-2021 13:37-0400 Respiratory rate 18 /min Faith Dahlhausen INSTRUCTOR TECHNICAL TRAINING.[employer] Work Phone: [facility] 11-28-2021 13:37-0400 SaO2% (BldA) [Mass fraction] 97 % Faith Dahlhausen INSTRUCTOR TECHNICAL TRAINING.[employer] Work Phone: [facility] 11-28-2021 13:37-0400 Systolic blood pressure 126 mm[Hg] Faith Dahlhausen INSTRUCTOR TECHNICAL TRAINING.[employer] Work Phone: [facility] 08-09-2021 14:12-0400 Body temperature 98.1 [degF] Munir Poole Jr., MD Work Phone: [facility] 08-09-2021 14:12-0400 Body weight 110.86 kg Munir Poole Jr., MD Work Phone: [facility] 08-09-2021 14:12-0400 Diastolic blood pressure 74 mm[Hg] Munir Poole Jr., MD Work Phone: [facility] 08-09-2021 14:12-0400 Heart rate 96 /min Munir Poole Jr., MD Work Phone: [facility] 08-09-2021 14:12-0400 Respiratory rate 18 /min Munir Poole Jr., MD Work Phone: [facility] 08-09-2021 14:12-0400 SaO2% (BldA) [Mass fraction] 97 % Munir Poole Jr., MD Work Phone: [facility] 08-09-2021 14:12-0400 Systolic blood pressure 128 mm[Hg] Munir Poole Jr., MD Work Phone: [facility] 06-10-2021 12:53-0400 Body weight 114.76 kg Danielle Benedict INSTRUCTOR TECHNICAL TRAINING.NOVELTIES SALES REPRESENTATIVE Work Phone: [facility] 06-10-2021 12:53-0400 Diastolic blood pressure 72 mm[Hg] Danielle Benedict INSTRUCTOR TECHNICAL TRAINING.NOVELTIES SALES REPRESENTATIVE Work Phone: [facility] 06-10-2021 12:53-0400 Heart rate 84 /min Danielle Benedict INSTRUCTOR TECHNICAL TRAINING.NOVELTIES SALES REPRESENTATIVE Work Phone: [facility] 06-10-2021 12:53-0400 Respiratory rate 16 /min Danielle Benedict INSTRUCTOR TECHNICAL TRAINING.NOVELTIES SALES REPRESENTATIVE Work Phone: [facility] 06-10-2021 12:53-0400 Systolic blood pressure 140 mm[Hg] Danielle Benedict INSTRUCTOR TECHNICAL TRAINING.NOVELTIES SALES REPRESENTATIVE Work Phone: [facility] Encounters Encounter Date Encounter Type Care Provider Facility Start: 10-18-2024 End: 10-18-2024 Emergency department patient visit CLEMENCIA MILLER Work Phone: -Emergency Department Work Phone: Start: 08-30-2024 Non-patient / Non-visit Dr. Loly pearson MD -[facility] Work Phone: Start: 08-15-2024 End: 08-15-2024 Emergency department patient visit CLEMENCIA MILLER Work Phone: -Emergency Department Work Phone: Start: 07-29-2024 End: 07-29-2024 Emergency department patient visit CLEMENCIA MILLER Work Phone: -Emergency Department Work Phone: Start: 03-15-2024 End: 03-16-2024 Telephone encounter Sagrario Perez MD Work Phone: [facility] [place] Comment on above: Medication Problem Start: 03-03-2024 End: 03-04-2024 Refill Sagrario Perez MD Work Phone: [facility] [place] Comment on above: Refill Request Start: 02-03-2024 End: 02-03-2024 ambulatory Akash Juan MA [facility] [place] Start: 02-03-2024 End: 02-03-2024 Patient encounter procedure Akash Juan MA [facility] Comment on above: Population Health Na vigation Outreach (ACO QAE Surge list 2023/) Start: 12-24-2023 End: 12-24-2023 Emergency department [facility] Facility[facility] Start: 12-04-2023 End: 12-04-2023 Refill Sagrario Perez MD Work Phone: [facility] [place] Comment on above: Refill Request Start: 12-02-2023 End: 12-07-2023 ambulatory Sagrario Perez MD Work Phone: Internal Medicine [facility] Start: 10-29-2023 End: 11-02-2023 ambulatory Sagrario Perez MD Work Phone: Internal Medicine [facility] Start: 06-05-2023 Telephone encounter Neurology Provid er Neurology Comment on above: Appointment Start: 06-04-2023 End: 06-04-[address] Sagrario Perez Work Phone: [facility] Work Phone: Start: 06-04-2023 End: 06-04-[address] Sagrario Perez Work Phone: [facility]-Pulmonary Services/Neurology Work Phone: Start: 05-11-2023 End: 05-11-2023 ambulatory MARIANELA MOONEY Facility:[facility] Start: 05-11-2023 End: 05-11-2023 Patient encounter procedure Marianela Mooney Work Phone: Podiatry Comment on above: Hammer toe of right foot (Primary Dx) Start: 05-08-2023 End: 05-08-2023 Emergency department patient visit Dr. Sagrario Perez Work Phone: [facility]-Emergency Department Work Phone: Start: 05-08-2023 Refill Billie Ochoa APRN.CNP Work Phone: [facility] Comment on above: Refill Request Start: 05-04-2023 End: 05-04-[address] Sagrario Perez Work Phone: [facility] Work Phone: Start: 05-01-2023 End: 05-01-[address] Sagrario Perez Work Phone: [facility] Work Phone: Start: 04-28-2023 End: 04-28-2023 ambulatory SAGRARIO PEREZ Facility:[facility] Start: 04-28-2023 End: 04-28-2023 Office outpatient visit 25 minutes Sagrario Perez MD Work Phone: [facility] [place] Comment on above: Physical debility (P rimary Dx); Type 2 diabetes mellitus with diabetic neuropathy, with long-term current use of insulin (HCC); Hyperthyroidism; Atrial flutter with rapid ventricular response (HCC); Fibromyalgia; Parkinson's disease without dyskinesia, unspecified whether manifestations fluctuate (HCC); Need for shingles vaccine; Encounter for immunization Start: 04-03-2023 End: 04-23-2023 Evaluation and management of inpatient Dr. Sagrario Perez [facility] Start: 04-03-2023 Non-patient / Non-visit Dr. Sirisha Perez Work Phone: [facility] Work Phone: Start: 04-02-2023 Non-patient / Non-visit Dr. Sirisha Perez Work Phone: [facility] Start: 04-01-2023 Non-patient / Non-visit Dr. Sirisha Perez Work Phone: [facility] Work Phone: Start: 04-01-2023 Non-patient / Non-visit Dr. Sirisha Perez Work Phone: [facility] Start: 03-31-2023 Non-patient / Non-visit Dr. Sirisha Perez Work Phone: [facility] Work Phone: Start: 03-31-2023 End: 04-03-2023 Evaluation and management of inpatient Dr. Sagrario Perez [facility] Work Phone: Start: 12-31-2022 ambulatory Sagrario landry MD Work Phone: Internal Medicine [facility] Start: 12-29-2022 Telephone encounter Danielle xiong INSTRUCTOR TECHNICAL TRAINING.NOVELTIES SALES REPRESENTATIVE Work Phone: [facility] [place] Comment on above: Results Start: 12-26-2022 End: 12-26-2022 Office outpatient visit 25 minutes Danielle Benedict INSTRUCTOR TECHNICAL TRAINING.NOVELTIES SALES REPRESENTATIVE Work Phone: [facility] [place] Comment on above: Type 2 diabetes jeanne itus with diabetic neuropathy, with long- term current use of insulin (HCC) (Primary Dx); Hypoglycemia Start: 12-25-2022 ambulatory Sagrario landry MD Work Phone: [facility] [place] Comment on above: Low Blood Sugar Start: 10-29-2022 Telephone encounter Sagrario moctezuma MD Work Phone: [facility] [place] Comment on above: receipt of fax Start: 10-08-2022 End: 10-08-2022 Office outpatient visit 25 minutes Sagrario Perez MD Work Phone: [facility] [place] Comment on above: Type 2 diabetes jeanne itus with diabetic neuropathy, with long- term current use of insulin (HCC) (Primary Dx); Mixed hyperlipidemia; Tremor, essential; Primary hypertension; Class 3 severe obesity due to excess calories with body mass index (BMI) of 40.0 to 44.9 in adult, unspecified whether serious comorbidity present (HCC) Start: 09-17-2022 Refill Billie Ochoa INSTRUCTOR TECHNICAL TRAINING.[employer] Work Phone: [facility] [place] Comment on above: Refill Request Start: 08-26-2022 Refill Sagrario landry MD Work Phone: [facility] [place] Comment on above: Refill Request Start: 08-22-2022 Telephone encounter Billie womack INSTRUCTOR TECHNICAL TRAINING.[employer] Work Phone: [facility] [place] Comment on above: walker (DME) Medication Problem Start: 08-22-2022 End: 08-22-2022 Patient encounter procedure Billie Ochoa INSTRUCTOR TECHNICAL TRAINING.[employer] Work Phone: [facility] [place] Comment on above: Type 2 diabetes jeanne itus with diabetic neuropathy, with long- term current use of insulin (HCC) (Primary Dx); Diabetes mellitus with insulin therapy (HCC); Fine motor impairment; Generalized weakness; TIA (transient ischemic attack); Tremor, essential; Unspecified severe protein-calorie malnutrition (HCC); Class 3 severe obesity due to excess calories with serious comorbidity and body mass index (BMI) of 40.0 to 44.9 in adult (HCC); Platelets decreased (HCC); Primary hypertension; Mixed hyperlipidemia Start: 08-20-2022 Telephone encounter Faith Nichole APRN.[employer] Work Phone: Neurology Comment on above: Medication Problem Start: 08-15-2022 End: 08-15-2022 Patient encounter procedure Marianela Mooney Work Phone: Podiatry Comment on above: Controlled type 2 di abetes mellitus with diabetic neuropathy, with long-term current use of insulin (HCC) (Primary Dx); Callus; Soft tissue mass Start: 08-14-2022 End: 08-14-2022 Patient encounter procedure Faith Raygoza APRN.[employer] Work Phone: Neurology Comment on above: Tremor (Primary Dx); Transient cerebral ischemia, unspecified type; Facial weakness Start: 05-28-2022 ambulatory [facility] [place] Comment on above: Population Health Na vigation Outreach ([facility]) Start: 04-14-2022 Refill Sagrario landry MD Work Phone: [facility] [place] Comment on above: Refill Request; Refi ll Request (NEW PHARMACY USING MAIL ORDER: SEE RX NOTES) Start: 04-10-2022 End: 04-10-2022 Patient encounter procedure Faith Raygoza APRN.[employer] Work Phone: Neurology Comment on above: Tremor (Primary Dx) Start: 04-03-2022 Refill Sagrario landry MD Work Phone: [facility] [place] Start: 03-12-2022 Refill Billie Ochoa APRN.[employer] Work Phone: [facility] [place] Comment on above: Med Change Request Start: 03-05-2022 Refill Faith trammell APRN.[employer] Work Phone: Neurology Comment on above: Refill Request Start: 02-10-2022 End: 02-10-2022 Office outpatient visit 25 minutes Sagrario Perez MD Work Phone: [facility] [place] Comment on above: Type 2 diabetes jeanne itus with diabetic neuropathy, with long- term current use of insulin (HCC) (Primary Dx); Tremor, essential; Essential hypertension; Mixed hyperlipidemia; Vitamin D deficiency; Proteinuria, unspecified type; Macroalbuminuric diabetic nephropathy (HCC) Start: 01-08-2022 ambulatory Sagrario landry MD Work Phone: [facility] [place] Start: 12-09-2021 Telephone encounter Faith Nichole APRN.[employer] Work Phone: Neurology Comment on above: Patient Update Start: 11-28-2021 End: 11-28-2021 Patient encounter procedure Faith Raygoza APRN.[employer] Work Phone: Neurology Comment on above: Tremor (Primary Dx) Start: 10-10-2021 Refill Sagrario landry MD Work Phone: [facility] [place] Comment on above: Refill Request Start: 09-17-2021 End: 09-17-2021 Patient encounter procedure Marianela Mooney Work Phone: Podiatry Comment on above: Hyperkeratosis (Prim nay Dx) Start: 08-09-2021 End: 08-09-2021 Patient encounter procedure Munir Poole MD Work Phone: Neurology Comment on above: Tremor (Primary Dx) Start: 06-10-2021 End: 06-10-2021 Patient encounter procedure Danielle Benedict APRN.NOVELTIES SALES REPRESENTATIVE Work Phone: [facility] [place] Comment on above: Type 2 diabetes jeanne itus with diabetic neuropathy, with long- term current use of insulin (HCC) (Primary Dx); Tremor, essential; Asthma, unspecified asthma severity, unspecified whether complicated, unspecified whether persistent; Generalized weakness; Need for community resource; Essential hypertension; Mixed hyperlipidemia; Tremor of hands and face Start: 10-26-2020 End: 10-26-2020 Subsequent hospital visit by physician Xr [facility] [place] Work Phone: Radiology Comment on above: Foot pain, right [M7 9.671] Procedures Date Procedure Procedure Detail Performing Clinician Start: 10-18-2024 Computed tomography of thoracic spine without contrast CLEMENCIAEddie MILLER Work Phone: Start: 10-18-2024 CT cervical spine wi thout contrast [id number] Work Phone: Start: 08-15-2024 X-ray of chest posteroanterior view [id number] Work Phone: Start: 07-29-2024 Computed tomography of abdomen and pelvis with intravenous contrast [facility] Work Phone: Start: 07-29-2024 Urnls dip stick/tabl et reagent auto microscopy [facility] Work Phone: Start: 07-29-2024 Plain chest X-ray [id number] Work Phone: Start: 07-29-2024 Estimated creatinine clearance [facility] Work Phone: Start: 04-13-[address] Sagrario Perez Work Phone: Start: 03-31-2023 Plain chest X-ray Dr. Haely Perez Work Phone: Start: 03-31-2023 Plain x-ray of pelvi s and lower extremity Dr. Sagrario Perez Work Phone: Start: 03-31-2023 Radiologic examinati on of knee Dr. Sagrario Perez Work Phone: Start: 11-28-2020 Adult depression scr eening assessment Danielle Benedict INSTRUCTOR TECHNICAL TRAINING.NOVELTIES SALES REPRESENTATIVE Work Phone: Start: 10-26-2020 Radex foot complete minimum 3 views Devika Jimenez PA-C Work Phone: Start: 04-21-2018 Colonoscopy Danielle xiong INSTRUCTOR TECHNICAL TRAINING.NOVELTIES SALES REPRESENTATIVE Work Phone: Start: 04-21-2018 Mammography Danielle Mclaughlin ks INSTRUCTOR TECHNICAL TRAINING.NOVELTIES SALES REPRESENTATIVE Work Phone: Plan of Treatment Date Care Activity Detail Author Start: 10-18-2024 [facility] Start: 08-15-2024 [facility] Start: 07-29-2024 Consultation [facility] Start: 07-29-2024 [facility] Start: 04-28-2024 Annual PCP Team Ceramic Engineering Professor clemente Disease Visit Annual PCP Team Chronic Disease Visit [facility] Start: 04-28-2024 BP Controlled (<130/80) BP Controlle d (<130/80) [facility] Start: 03-02-2024 Advance Directive Discussion Advance Directive Discussion [facility] Start: 11-01-2023 Influenza vaccination C [facility] Start: 10-09-2023 ANNUAL PCP TEAM PRODUCT ADVISOR CLEMENTE DISEASE VISIT ANNUAL PCP TEAM CHRONIC DISEASE VISIT [facility] Start: 10-09-2023 BP CONTROLLED (<130/80) BP CONTROLLE D (<130/80) [facility] Start: 10-09-2023 Pneumococcal Vaccine : 65+ (2 - PCV) Pneumococcal Vaccine: 65+ (2 - PCV) [facility] Comment on above: Postponed from 01/11 (Declined at this time) Start: 10-09-2023 PNEUMOCOCCAL: 65+ (2 - PCV) PNEUMOCOCCAL: 65+ (2 - PCV) [facility] Comment on above: Postponed from 01/11 (Declined at this time) Start: 10-09-2023 Urine microalbumin profile [facility] Comment on above: Postponed from 11/23 (Declined at this time) Start: 08-23-2023 ANNUAL PCP TEAM PRODUCT ADVISOR CLEMENTE DISEASE VISIT ANNUAL PCP TEAM CHRONIC DISEASE VISIT [facility] Start: 08-20-2023 Hepatitis B surface antibody level LDL CHOLESTEROL [facility] Start: 08-16-2023 3 comp foot exam completed DIABETIC FOOT EXAM [facility] Start: 08-16-2023 Diabetic foot examination Diabetic F oot Exam [facility] Start: 06-27-2023 Hemoglobin A1c measurement HbA1C [facility] Start: 06-27-2023 Hemoglobin A1c/Hemoglobin.total in Blood HbA1C [facility] Start: 05-08-2023 [facility] Start: 04-23-2023 Patient discharge [facility] Start: 04-22-2023 Development of care plan [facility] Start: 04-21-2023 Colonoscopy COLONOSCOPY [facility] Start: 04-21-2023 COLORECTAL CANCER SCREENING COLORECTAL CANCER SCREENING [facility] Start: 04-21-2023 Screening for malign ant neoplasm of colon [facility] Start: 04-10-2023 End: 06-10-2023 ALBUMIN/CREAT RATIO RND UR ALBUMIN/CREAT RATIO RND UR Lab Routine Type 2 diabetes mellitus with diabetic neuropathy, with long-term current use of insulin (HCC) Expected: 04/10/2023 (Approximate), Expires: 06/10/2023 [facility] Work Phone: Comment on above: Expected: 04/10/2023 (Approximate), Expires: 06/10/2023 Start: 04-10-2023 BP CONTROLLED (<130/80) BP CONTROLLE D (<130/80) [facility] Start: 04-10-2023 End: 06-10-2023 CBC panel - Blood by Automated count CBC Lab Routine Primary hypertension Expected: 04/10/2023 (Approximate), Expires: 06/10/2023 [facility] Work Phone: Comment on above: Expected: 04/10/2023 (Approximate), Expires: 06/10/2023 Start: 04-10-2023 End: 06-10-2023 Comprehensive metabolic 2000 panel - Serum or Plasma COMP METABOLIC PANEL Lab Routine Type 2 diabetes mellitus with diabetic neuropathy, with long-term current use of insulin (HCC) Primary hypertension Expected: 04/10/2023 (Approximate), Expires: 06/10/2023 [facility] Work Phone: Comment on above: Expected: 04/10/2023 (Approximate), Expires: 06/10/2023 Start: 04-10-2023 End: 06-10-2023 Hemoglobin A1c in Blood HGB A1C Lab Routine Type 2 diabetes mellitus with diabetic neuropathy, with long-term current use of insulin (HCC) Primary hypertension Expected: 04/10/2023 (Approximate), Expires: 06/10/2023 [facility] Work Phone: Comment on above: Expected: 04/10/2023 (Approximate), Expires: 06/10/2023 Start: 04-10-2023 End: 06-10-2023 LIPID PANEL, NONFASTING LIPID PANEL, NONFASTING Lab Routine Mixed hyperlipidemia Expected: 04/10/2023 (Approximate), Expires: 06/10/2023 [facility] Work Phone: Comment on above: Expected: 04/10/2023 (Approximate), Expires: 06/10/2023 Start: 04-07-2023 Speech therapy management [facility] Start: 04-07-2023 Speech therapy assessment [facility] Start: 04-04-2023 Development of care plan [facility] Start: 04-04-2023 Developing a treatme nt plan [facility] Start: 04-03-2023 Admission procedure [facility] Start: 04-03-2023 Following clinical pathway protocol [facility] Start: 04-03-2023 Measuring intake and output [facility] Start: 04-03-2023 Patient referral to dietitian [facility] Start: 04-03-2023 Referral to occupati onal therapist [facility] Start: 04-03-2023 Referral to service [facility] Start: 04-03-2023 Vital signs measurements [facility] Start: 04-03-2023 [facility] Start: 04-03-2023 Patient discharge [facility] Start: 04-03-2023 Patient referral to dietitian [facility] Start: 04-01-2023 Care planning and pr oblem solving actions [facility] Start: 04-01-2023 Care planning and pr oblem solving actions [facility] Start: 03-31-2023 Assessment of risk o f venous thromboembolism [facility] Start: 03-31-2023 Care regimes management [facility] Start: 03-31-2023 Catheterization of vein [facility] Start: 03-31-2023 Insertion of cathete r into peripheral vein [facility] Start: 03-31-2023 Measuring intake and output [facility] Start: 03-31-2023 Notification of physician [facility] Start: 03-31-2023 Providing care accor ding to standard [facility] Start: 03-31-2023 Provision of activit y privileges [facility] Start: 03-31-2023 Referral to oil developer [facility] Start: 03-31-2023 Referral to occupati onal therapist [facility] Start: 03-31-2023 Referral to service [facility] Start: 03-31-2023 [facility] Start: 03-31-2023 Following clinical pathway protocol [facility] Start: 03-31-2023 Admission procedure [facility] Start: 03-31-2023 Consultation [facility] Start: 03-31-2023 Patient referral to dietitian [facility] Start: 03-02-2023 Advance Directive Discussion Advance Directive Discussion [facility] Start: 03-02-2023 Behavioral Health Screening Behavioral Health Screening [facility] Start: 03-02-2023 Depression Assessment Depression Ass essment [facility] Start: 02-18-2023 Hemoglobin A1c/Hemoglobin.total in Blood HBA1C [facility] Start: 02-14-2023 Hepatitis B surface antibody level LDL CHOLESTEROL [facility] Start: 02-10-2023 ANNUAL PCP TEAM PRODUCT ADVISOR CLEMENTE DISEASE VISIT ANNUAL PCP TEAM CHRONIC DISEASE VISIT [facility] Start: 02-10-2023 BP CONTROLLED (<130/80) BP CONTROLLE D (<130/80) [facility] Start: 12-25-2022 End: 03-26-2023 Basic metabolic 2000 panel - Serum or Plasma BASIC METABOLIC PNL Lab Routine Type 2 diabetes mellitus with diabetic neuropathy, with long-term current use of insulin (HCC) Expected: 12/25/2022, Expires: 03/26/2023 [facility] Work Phone: Comment on above: Expected: 12/25/2022 , Expires: 03/26/2023 Start: 12-25-2022 End: 03-26-2023 Hemoglobin A1c in Blood HGB A1C Lab Routine Type 2 diabetes mellitus with diabetic neuropathy, with long-term current use of insulin (HCC) Expected: 12/25/2022, Expires: 03/26/2023 [facility] Work Phone: Comment on above: Expected: 12/25/2022 , Expires: 03/26/2023 Start: 10-31-2022 Influenza vaccination [facility] Start: 10-01-2022 End: 12-01-2022 ALBUMIN/CREAT RATIO RND UR ALBUMIN/CREAT RATIO RND UR Lab Routine Type 2 diabetes mellitus with diabetic neuropathy, with long-term current use of insulin (HCC) Expected: 10/01/2022, Expires: 12/01/2022 [facility] Work Phone: Comment on above: Expected: 10/01/2022 , Expires: 12/01/2022 Start: 10-01-2022 End: 12-01-2022 CBC W Auto Differential panel - Blood CBC + DIFF Lab Routine Platelets decreased (HCC) Expected: 10/01/2022, Expires: 12/01/2022 [facility] Work Phone: Comment on above: Expected: 10/01/2022 , Expires: 12/01/2022 Start: 10-01-2022 End: 12-01-2022 Comprehensive metabolic 2000 panel - Serum or Plasma COMP METABOLIC PANEL Lab Routine Unspecified severe protein-calorie malnutrition (HCC) Expected: 10/01/2022, Expires: 12/01/2022 [facility] Work Phone: Comment on above: Expected: 10/01/2022 , Expires: 12/01/2022 Start: 08-29-2022 Influenza vaccination INFLUENZA (#1) [facility] Comment on above: Postponed from 10/31 (Declined at this time) Start: 08-15-2022 Hemoglobin A1c/Hemoglobin.total in Blood HBA1C [facility] Start: 08-11-2022 PNEUMOCOCCAL (2 - PCV) PNEUMOCOCCAL (2 - PCV) [facility] Comment on above: Postponed from 01/11 (Declined at this time) Start: 08-11-2022 Urine microalbumin profile DTAP,TDAP,TD (2 - Td or Tdap) [facility] Comment on above: Postponed from 11/23 (Declined at this time) Start: 08-09-2022 BP CONTROLLED (<130/80) BP CONTROLLE D (<130/80) [facility] Start: 2022 ADVANCE DIRECTIVE DISCUSSION ADVANCE DIRECTIVE DISCUSSION [facility] Start: 2022 BONE DENSITY BONE DENSITY [facility] Start: 2022 Bone Density Screening Bone Density Screening [facility] Start: 2022 Screening for osteoporosis Bone Density Screening [facility] Start: 06-10-2022 ANNUAL PCP TEAM PRODUCT ADVISOR CLEMENTE DISEASE VISIT ANNUAL PCP TEAM CHRONIC DISEASE VISIT [facility] Start: 06-10-2022 BP CONTROLLED (<130/80) BP CONTROLLE D (<130/80) [facility] Start: 06-10-2022 Hepatitis B surface antibody level LDL CHOLESTEROL [facility] Start: 03-13-2022 Glaucoma screening Dilated Retinal E xam [facility] Start: 03-13-2022 Hepatitis C antibody , confirmatory test DILATED RETINAL EXAM [facility] Start: 03-03-2022 3 comp foot exam completed DIABETIC FOOT EXAM [facility] Comment on above: Postponed from 04/02 (Postponed To Appropriate Date) Start: 03-03-2022 SHINGRIX VACCINE (1 of 2) YOU GRIX VACCINE (1 of 2) [facility] Comment on above: Postponed from 07/15 (Insurance Coverage) Start: 03-02-2022 DEPRESSION ASSESSMENT DEPRESSION ASS ESSMENT [facility] Start: 01-15-2022 Hepatitis B screening URINE AL BUMIN:CREATININE RATIO [facility] Start: 01-15-2022 Hepatitis B surface antibody level LDL CHOLESTEROL [facility] Start: 12-10-2021 Hemoglobin A1c/Hemoglobin.total in Blood HBA1C [facility] Start: 11-28-2021 Adult depression screening assessment DEPRESSION SCREENING [facility] Start: 11-23-2021 Urine microalbumin profile [facility] Start: 10-31-2021 Influenza vaccination INFLUENZA (#1) [facility] Start: 08-29-2021 ANNUAL PCP TEAM PRODUCT ADVISOR CLEMENTE DISEASE VISIT ANNUAL PCP TEAM CHRONIC DISEASE VISIT [facility] Start: 2021 Hemoglobin A1c/Hemoglobin.total in Blood HBA1C [facility] Start: 06-10-2021 End: 08-10-2021 Comprehensive metabolic 2000 panel - Serum or Plasma [facility] Work Phone: Comment on above: Expected: 06/10/2021 , Expires: 08/10/2021 Start: 06-10-2021 End: 08-10-2021 Hemoglobin A1c/Hemoglobin.total in Blood [facility] Work Phone: Comment on above: Expected: 06/10/2021 , Expires: 08/10/2021 Start: 06-10-2021 End: 08-10-2021 LIPID PANEL BASIC [facility] Work Phone: Comment on above: Expected: 06/10/2021 , Expires: 08/10/2021 Start: 04-02-2021 3 comp foot exam completed DIABETIC FOOT EXAM [facility] Start: 03-02-2021 DEPRESSION ASSESSMENT DEPRESSION ASS ESSMENT [facility] Start: 07-08-2019 FECAL OCCULT BLOOD FECAL OCCULT BLOO D [facility] Start: 07-08-2019 Screening for malign ant neoplasm of colon Fecal Occult Blood [facility] Start: 04-21-2019 Mammography [facility] Start: 04-21-2019 Screening for malign ant neoplasm of breast Mammogram Screening [facility] Start: 2017 Hepatitis B Vaccine (1 of 3 - Risk 3-dose series) Hepatitis B Vaccine (1 of 3 - Risk 3-dose series) [facility] Start: 2017 RSV Vaccine (1 - 1-d ose 60+ series) RSV Vaccine (1 - 1-dose 60+ series) [facility] Start: 2017 RSV Vaccine (1 - Ris k 60-74 years 1-dose series) RSV Vaccine (1 - Risk 60-74 years 1-dose series) [facility] Start: 01-11-2015 PNEUMOCOCCAL (2 - PCV) PNEUMOCOCCAL (2 - PCV) [facility] Start: 01-11-2015 PNEUMOCOCCAL: 65+ (2 - PCV) PNEUMOCOCCAL: 65+ (2 - PCV) [facility] Start: 07-16-2007 SHINGRIX VACCINE (1 of 2) YOU GRIX VACCINE (1 of 2) [facility] Start: 2002 COLOGUARD (FIT-DNA) COLOGUARD (FIT-D NA) [facility] Start: [address] COLONOGRAPHY [facility] Start: 2002 Screening for malign ant neoplasm of colon [facility] Start: 2002 SIGMOIDOSCOPY SIGMOIDOSCOPY [facility] Start: 07-16-1975 Depression Screening Depression Scre ening [facility] Start: 07-16-1975 SPIROMETRY SPIROMETRY [facility] 24 Hour ECG [facility] End: 02-10-2023 25-hydroxyvitamin D3 [Mass/volume] in Serum or Plasma VITAMIN D 25 HYDROXY Lab Routine Vitamin D deficiency 3 Occurrences starting 02/10/2022 until 02/10/2023, 1 completed [facility] Work Phone: Comment on above: 3 Occurrences starti ng 02/10/2022 until 02/10/2023, 1 completed End: 11-27-2024 BD DXA TRABECULAR BONE SCORE (TBS) BD DXA TRABECULAR BONE SCORE (TBS) Radiology Routine Screening for osteoporosis Asymptomatic menopause 1 Occurrences starting 10/29/2023 until 11/27/2024 [facility] Comment on above: 1 Occurrences starti ng 10/29/2023 until 11/27/2024 End: 02-10-2023 CBC panel - Blood by Automated count CBC Lab Routine Essential hypertension 3 Occurrences starting 02/10/2022 until 02/10/2023, 1 completed [facility] Work Phone: Comment on above: 3 Occurrences starti ng 02/10/2022 until 02/10/2023, 1 completed End: 02-10-2023 Comprehensive metabolic 2000 panel - Serum or Plasma COMP METABOLIC PANEL Lab Routine Type 2 diabetes mellitus with diabetic neuropathy, with long-term current use of insulin (HCC) Essential hypertension 3 Occurrences starting 02/10/2022 until 02/10/2023, 1 completed [facility] Work Phone: Comment on above: 3 Occurrences starti ng 02/10/2022 until 02/10/2023, 1 completed End: 12-31-2024 DBT Breast - bilateral screening FORD SCREENING W ISRA Radiology Routine Encounter for screening mammogram for breast cancer 1 Occurrences starting 12/02/2023 until 12/31/2024 [facility] Work Phone: Comment on above: 1 Occurrences starti ng 12/02/2023 until 12/31/2024 End: 11-27-2024 DXA Skeletal system.axial Views for bone density DXA-AXIAL SKELETON Radiology Routine Screening for osteoporosis Asymptomatic menopause 1 Occurrences starting 10/29/2023 until 11/27/2024 [facility] Work Phone: Comment on above: 1 Occurrences starti ng 10/29/2023 until 11/27/2024 End: 02-10-2023 Hemoglobin A1c in Blood HGB A1C Lab Routine Type 2 diabetes mellitus with diabetic neuropathy, with long-term current use of insulin (HCC) 3 Occurrences starting 02/10/2022 until 02/10/2023, 1 completed [facility] Work Phone: Comment on above: 3 Occurrences starti ng 02/10/2022 until 02/10/2023, 1 completed Hemoglobin A1c/Hemoglobin.total in Blood HEMOGLOBIN A1C (POC) Lab Routine Type 2 diabetes mellitus with diabetic neuropathy, with long-term current use of insulin (HCC) Ordered: 12/26/2022 [facility] Work Phone: Comment on above: Ordered: 12/26/2022 End: 02-10-2023 LIPID PANEL, NONFASTING LIPID PANEL, NONFASTING Lab Routine Mixed hyperlipidemia 3 Occurrences starting 02/10/2022 until 02/10/2023, 1 completed [facility] Work Phone: Comment on above: 3 Occurrences starti ng 02/10/2022 until 02/10/2023, 1 completed End: 01-30-2024 FORD SCREENING FORD SCREENING Radiology Routine Encounter for screening mammogram for breast cancer 1 Occurrences starting 12/31/2022 until 01/30/2024 [facility] Work Phone: Comment on above: 1 Occurrences starti ng 12/31/2022 until 01/30/2024 End: 09-13-2023 Mri brain brain stem w/o contrast material MRI BRAIN WO IVCON Radiology Routine Transient cerebral ischemia, unspecified type 1 Occurrences starting 08/14/2022 until 09/13/2023 [facility] Work Phone: Comment on above: 1 Occurrences starti ng 08/14/2022 until 09/13/2023 End: 09-14-2023 MRI FOOT/TOES WO/W IVCON RIGHT MRI FOOT/TOES WO/W IVCON RIGHT Radiology Routine Callus Soft tissue mass 1 Occurrences starting 08/15/2022 until 09/14/2023 [facility] Work Phone: Comment on above: 1 Occurrences starti ng 08/15/2022 until 09/14/2023 Patient Education [facility] Work Phone: Patient referral [facility] Work Phone: End: 02-10-2023 Protein/Creatinine [Mass Ratio] in Urine PROTEIN CREATININE RATIO Lab Routine Proteinuria, unspecified type 3 Occurrences starting 02/10/2022 until 02/10/2023, 1 completed [facility] Work Phone: Comment on above: 3 Occurrences starti ng 02/10/2022 until 02/10/2023, 1 completed End: 02-07-2023 Screening mammography bi 2-view breast inc cad FORD SCREENING Radiology Routine Encounter for screening mammogram for breast cancer 1 Occurrences starting 01/08/2022 until 02/07/2023 [facility] Work Phone: Comment on above: 1 Occurrences starti ng 01/08/2022 until 02/07/2023 End: 07-10-2022 SPIROMETRY WITH DILATOR IF OBSTRUCTED SPIROMETRY WITH DILATOR IF OBSTRUCTED PFT Routine Asthma, unspecified asthma severity, unspecified whether complicated, unspecified whether persistent 1 Occurrences starting 06/10/2021 until 07/10/2022 [facility] Work Phone: Comment on above: 1 Occurrences starti ng 06/10/2021 until 07/10/2022 T4 free measurement [facility] Thyroid stimulating hormone measurement [facility] Thyroid stimulating immunoglobulins actual/normal in Serum [facility] Thyroperoxidase Ab [Units/volume] in Serum or Plasma [facility] Triiodothyronine, fr ee measurement [facility] End: 09-14-2023 XR FOOT GENERAL 3V AP/LAT/OBL RIGHT XR FOOT GENERAL 3V AP/LAT/OBL RIGHT Radiology Routine Callus Soft tissue mass 1 Occurrences starting 08/15/2022 until 09/14/2023 [facility] Work Phone: Comment on above: 1 Occurrences starti ng 08/15/2022 until 09/14/2023 XR FOOT GENERAL 3V AP/LAT/OBL RIGHT XR FOOT GENERAL 3V AP/LAT/OBL RIGHT Radiology Routine Callus Soft tissue mass 08/15/2022 9:05 AM EDT [facility] Work Phone: [facility] Immunizations Immunization Date Immunization Notes Care Provider Eamon kam 04-15-2023 Pneumococcal Vaccine PCV20 (Prevnar 20) Dr. Sagrario Perez Work Phone: [facility] 11-30-2020 influenza, injectabl e, quadrivalent, contains preservative Danielle Benedict INSTRUCTOR TECHNICAL TRAINING.NOVELTIES SALES REPRESENTATIVE Work Phone: [facility] Work Phone: 11-30-2020 influenza virus vacc ine, unspecified formulation Sagrario Perez MD Work Phone: [facility] 11-30-2019 influenza, injectabl e, quadrivalent, contains preservative Danielle Benedict INSTRUCTOR TECHNICAL TRAINING.NOVELTIES SALES REPRESENTATIVE Work Phone: [facility] 10-25-2018 influenza, injectabl e, quadrivalent, contains preservative Billie Gabriela INSTRUCTOR TECHNICAL TRAINING.[employer] Work Phone: [facility] Work Phone: 10-25-2018 influenza, seasonal, injectable Danielle Benedict INSTRUCTOR TECHNICAL TRAINING.NOVELTIES SALES REPRESENTATIVE Work Phone: [facility] Work Phone: 06-08-2018 hepatitis A vaccine, adult dosage Billie Gabriela INSTRUCTOR TECHNICAL TRAINING.[employer] Work Phone: [facility] Work Phone: 06-08-2018 hepatitis A vaccine, unspecified formulation Danielle Benedict INSTRUCTOR TECHNICAL TRAINING.NOVELTIES SALES REPRESENTATIVE Work Phone: [facility] Work Phone: 12-07-2017 hepatitis A vaccine, adult dosage Danielle Benedict INSTRUCTOR TECHNICAL TRAINING.NOVELTIES SALES REPRESENTATIVE Work Phone: [facility] 12-07-2017 Influenza, injectabl e, Madin [place] Canine Kidney, preservative free, quadrivalent Danielle Benedict INSTRUCTOR TECHNICAL TRAINING.NOVELTIES SALES REPRESENTATIVE Work Phone: [facility] 01-02-2016 influenza, injectabl e, quadrivalent, contains preservative Danielle Benedict INSTRUCTOR TECHNICAL TRAINING.NOVELTIES SALES REPRESENTATIVE Work Phone: [facility] 11-28-2014 influenza, injectabl e, quadrivalent, contains preservative Danielle Benedict INSTRUCTOR TECHNICAL TRAINING.NOVELTIES SALES REPRESENTATIVE Work Phone: [facility] 01-11-2014 influenza, seasonal, injectable Danielle Benedict INSTRUCTOR TECHNICAL TRAINING.NOVELTIES SALES REPRESENTATIVE Work Phone: [facility] 01-11-2014 pneumococcal polysaccharide vaccine, 23 valent Danielle Benedict INSTRUCTOR TECHNICAL TRAINING.NOVELTIES SALES REPRESENTATIVE Work Phone: [facility] 02-11-2013 influenza virus vacc ine, unspecified formulation Danielle Benedict INSTRUCTOR TECHNICAL TRAINING.NOVELTIES SALES REPRESENTATIVE Work Phone: [facility] 11-24-2011 tetanus toxoid, redu kaci diphtheria toxoid, and acellular pertussis vaccine, adsorbed Danielle Benedict INSTRUCTOR TECHNICAL TRAINING.NOVELTIES SALES REPRESENTATIVE Work Phone: [facility] Work Phone: 12-28-2006 influenza virus vacc ine, unspecified formulation Danielle Benedict INSTRUCTOR TECHNICAL TRAINING.NOVELTIES SALES REPRESENTATIVE Work Phone: [facility] Work Phone: 12-30-2005 influenza virus vacc ine, unspecified formulation Danielle Benedict INSTRUCTOR TECHNICAL TRAINING.NOVELTIES SALES REPRESENTATIVE Work Phone: [facility] Work Phone: 12-01-2003 pneumococcal polysaccharide vaccine, 23 valent Danielle Benedict INSTRUCTOR TECHNICAL TRAINING.NOVELTIES SALES REPRESENTATIVE Work Phone: [facility] Work Phone: Payers Date Payer Category Payer Unknown [id number] 2023 Self-pay [id number] 2023 Medicaid [id number] 2015 Medicaid [id number] 2015 Medicare MEDICARE MEDICAR E A AND B [id number] 2015-Present [phone] [place] [address] Medicare [id number] 2015 Medicare [id number] 2011 Unknown [facility] [id number] Medicare [id number] Unknown [id number] Unknown [id number] Unknown [id number] Unknown [id number] Social History Date Type Detail Facility Start: 04-20-2012 End: 10-18-2024 Tobacco smoking status NHIS Never smoked tobacco [facility] Work Phone: Start: 06-10-2021 End: 03-10-2023 Alcohol intake Current non-drinker of alcohol (finding) [facility] Start: 05-19-2019 History SDOH Alcohol Frequency 1 [facility] Start: 05-19-2019 History SDOH Social Connections Phone 5 [facility] Start: 05-19-2019 History SDOH Social Connections Alevism 3 [facility] Start: 05-19-2019 End: 10-17-2019 History SDOH Social Connections Living 4 [facility] Start: 05-19-2019 History SDOH Physica l Activity DPW 0 [facility] Start: 10-17-2019 History SDOH Food Worry 2 [facility] Start: 10-17-2019 History SDOH Food Scarcity 98 [facility] Start: 05-19-2019 Education 12 [facility] Start: 05-16-1956 Sex Assigned At Not on file [facility] Start: 09-25-2020 End: 11-28-2021 Exposure to SARS-CoV-2 (event) Not sure [facility] Work Phone: Start: 04-20-2012 End: 04-10-2022 Tobacco use and exposure Smokeless tobacco non-user [facility] Start: 05-19-2019 End: 08-14-2022 [facility] Start: 05-19-2019 End: 08-14-2022 Social connection and isolation panel [facility] Do you belong to any clubs or organizations such as nondenominational groups, unions, fraternal or athletic groups, or school groups? Yes [facility] Are you now , , , , never or living with a partner? [facility] How often to you hav e a drink containing alcohol? Never [facility] Average Number of Drinks Not on file [facility] Work Phone: How hard is it for y ou to pay for the very basics like food, housing, medical care, and heating Not very hard [facility] Work Phone: Do you feel stress - tense, restless, nervous, or anxious, or unable to sleep at night because your mind is troubled all the time - these days [OSQ] Very much [facility] (I/We) worried wheth er (my/our) food would run out before (I/we) got money to buy more. Sometimes true [facility] Work Phone: The food that (I/we) bought just didn't last, and (I/we) didn't have money to get more. DK or Refused [facility] Work Phone: Start: 03-31-2023 End: 05-08-2023 Tobacco smoking status NHIS Unknown if ever smoked [facility] Start: 05-27-2017 None [facility] Start: 05-27-2017 With Family [facility] Start: 05-29-2017 Non-smoker [facility] Start: 1955 Sex Assigned At Female [facility] Medical Equipment Procedure Code Equipment Code Equipment Origin al Text Equipment Identifier Dates [id number], [id number], [id number] Start: 10-07-2018 Comment on above: Test blood sugar(s) 3 times daily and as needed for symptoms of high and low sugars. Dx: Other DM Code E11.40 Insulin: Yes USE TO INJECT TWICE DAILY Check blood sugar 3 times daily and as needed for symptoms of high or low sugars DX: E11.40 Insulin:Yes. Please give lancet pen if does not come with the meter Goals Date Patient Goal Desired Activity /State Functional Status Date Assessment Result Facility 04-23-2023 Functional status Chair [facility] Work Phone: 04-22-2023 Functional status Tolerates Activity Fair [facility] Work Phone: 04-03-2023 Functional status Activity Abili ty With Assist of 2 [facility] Work Phone: 04-02-2023 Functional status Ambulates [facility] Work Phone: Mental Status Date Assessment Result Facility 10-18-2024 Cognitive function Level Of Cons ciousness Awake;Alert;Appropriate;Follow s Commands [facility] Work Phone: 04-23-2023 Cognitive function Voice/Name [facility] Work Phone: 04-03-2023 Cognitive function Voice/Name [facility] Work Phone: Clinical Notes 05-13-2016 to 10-18-2024 Note Date & Type Note Facility 10-18-2024 Discharge summary [facility] 10-18-2024 Radiology Diagnostic study note [facility] Imaging Services [address] [place], [place] [id number] Spine Thoracic without Contras MR#: [id number] Acct: [id number] Name: TIFFANIE VILLAFANA Rep #: [id number] : 1955 F 69 From: Cuco Emanuel MD PCP: Dr. Pb Wallace MD Status: REG E R Study:Spine Thoracic without Contras Date of Exam: 10/18/24 Exam# [id number] Ordering Dr: Penelope Mcdonald MD PROCEDURE: CT SPINE THORACIC WITHOUT CONTRAST 10/18/2024 REASON FOR EXAM: PAIN UPPER T-SP, REMOTE FALL TECHNIQUE: CT SPINE THORACIC WITHOUT CONTRAS Coronal and Sagittal reconstruction series were provided. One or more dose reduction techniques were used (e.g., Automated exposure control, adjustment of the mA and/or kV according to patient size, use of iterative reconstruction technique). RADIATION DOSE SUMMARY: DLP: 1968.99 mGycm COMPARISON: No prior T-spine imaging. Abdominal CT 07/29/2024. FINDINGS: No evidence of acute fracture or subluxation. Alignment is anatomic. Preservedvertebral body heights. Mild multilevel spondylotic changes without any substantial spinal canal or osseous neural foraminal narrowing appreciated. No aggressive osseous lytic or blastic lesion. Unremarkable paravertebral soft tissues. Mild-moderate atherosclerotic vascularcalcifications. Visualized lung roger are clear. Stable appearing small bilateral adrenal nodules, likely benign fatty adenomas. CT/Spine Thoracic without Contras IMPRESSION: No acute fracture or malalignment. Mild spondylotic changes. Reading Location: [id number] CC: Dr. Luis Mcdonald MD; Dr. Pb Wallace MD ~ 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: Signed [facility] 10-18-2024 Radiology Diagnostic study note [facility] Imaging Services [address] [place] [id number] Spine Cervical without Contras MR#: [id number] Acct: [id number] Name: TIFFANIE VILLAFANA Rep #: [id number] : 1955 F 69 From: Cuco Emanuel MD PCP: Dr. Pb Wallace MD Status: REG E R Study:Spine Cervical without Contras Date of Exam: 10/18/24 Exam# [id number] Ordering Dr: Penelope Mcdonald MD PROCEDURE: CT SPINE CERVICAL WITHOUT CONTRAS 10/18/2024 REASON FOR EXAM: ABNORMAL OUPT XR SHOWING FRACTURES TECHNIQUE: CT SPINE CERVICAL WITHOUT CONTRAS Coronal and Sagittal reconstruction series were provided. One or more dose reduction techniques were used (e.g., Automated exposure control, adjustment of the mA and/or kV according to patient size, use of iterative reconstruction technique. RADIATION DOSE SUMMARY: DLP: 1968.99 mGycm COMPARISON: None. FINDINGS: No acute fracture or subluxation. Straightening and slight reversal of the cervical lordosis is likely positional and/or degenerative in nature. Mild multilevel spondylotic changes with varying degreesof disc space narrowing, anterior osteophytosis, uncovertebral spurring and hypertrophic facet arthropathy. No prevertebral soft tissue swelling. Retropharyngeal course of the bilateral carotid arteries noted, with atherosclerotic vascular calcifications. Prominent enlarged heterogeneous nodular thyroid gland with parenchymal calcifications. Mild rightward deviation of the trachea. Clear lung apices. CT/Spine Cervical without Contras IMPRESSION: 1. No acute cervical spine fracture or traumatic malalignment. 2. Mild multilevel spondylotic changes, as described. 3. Enlarged heterogeneous nodular thyroid; ultrasound may further characterize. Reading Location: [facility] CC: Dr. Luis Mcdonald MD; Dr. Pb Wallace MD ~ 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: Signed [facility] 10-18-2024 Discharge summary Note Date/Time October 18, 2024 7:29pm [facility] Medical Records Department [address] [place] [address] Emergency Department Summary 10/18/24 MR#: [id number] Acct: [id number] Name: TIFFANIE VILLAFANA Rep #:[id number] : 1955 69 From: Luis Mcdonald MD PCP: Dr. Pb Wallace MD Status:REG E R Location: ED HPI History of Present Illness Chief Complaint: Other, Pain/Inj Informant: patient and EMS Narrative Narrative: 69-year-old female was sent for abnormal x-rays of her neck that were done at her apartment as an outpatient showing fractures. Patient states she has had no fall to explain this, she had pain in her upper back between her shoulder blades that started 4 days ago upon waking up. She woke up with the pain. When she went to bed the previous night she did not havethe pain; just pain in her low back which she states is chronic and no differenttoday. She states has been having some numbness and tingling that is coming andgoing and all of the fingers of her left hand for the last 2 weeks or more. That is not present right now. She states despite having no pain in her neck and having some pain in her upper back in the middle, outpatient cervical spine x-rays only were done, and she is surprised that they were abnormal because she is having no neck pain. The last time she fell was 2 months ago, she was seen here, was across a bathtub she injured her rib and had no neck or acute/new backpain at that time, which she confirms. She denies any other systemic symptoms right now or illness. She is in a wheelchair most of the time due to Parkinson's, she has a walker that she occasionally uses, she lives in an apartment that she basically does not leave for the most part and has family and an aide that help her. [facility] Medical History Paroxysmal atrial flutter Thyrotoxicosis due to Graves' disease Anxiety Depression Diabetes Non-smoker Asthma History of left heart catheterization Hyperlipidemia Hypertension Tremor Home Medications ?Medication ?Instructions ?Recorded ?Last Taken ?Type amlodipine 10 mg tablet 1 tab PO DAILY BLOOD PRESSUR E 05/27/17 04/03/23 History clonidine HCl 0.3 mg tablet 1 tab PO BID BLOOD PRESSUR E 05/27/17 04/03/23 History cyclobenzaprine 10 mg tablet 10 mg PO QHS PRN LEG CRAM PS 05/27/17 04/02/23 History insulin degludec 200 unit/mL (3 56 unit subcut QHS MONALISA BETES 09/21/20 Unknown History mL) subcutaneous pen (Tresiba FlexTouch U-200 insulin) acetaminophen 500 mg tablet 1,000 mg (2 x 500 mg) PO Q 6H PRN 04/21/23 Unknown Rx PRN Pain Score 1-10 #0 tabs magnesium chloride 64 mg 128 mg (2 x 64 mg) PO DAILY 30 04/21/23 Unknown Rx (magnesium chloride) days #60 tabs tablet,delayed release (Mag 64) oxybutynin chloride 15 mg 15 mg PO BID 05/01/23 Unknow n History tablet,extended release 24 hr apixaban 5 mg tablet (Eliquis) 5 mg PO BID blood thinn er #180 tabs 05/04/23 Unknown Rx metoprolol tartrate 25 mg tablet 25 mg PO BID heart/pu lse #180 tabs 05/04/23 Unknown Rx famotidine 20 mg tablet 20 mg PO BID #10 TABLETS 10/23 Unknown Rx methimazole 10 mg tablet 15 mg (1.5 x 10 mg) PO DAILY 05/08/23 Unknown Rx thyroid 30 days #45 tabs Allergy/AdvReac Type Severity Reaction Status Date / Time adhesive tape Allergy Other Verified 10/18/24 17:23 apple Allergy Swelling Verified 10/18/24 17:23 cephalexin monohydrate (From Allergy Other Verified 10/18/24 17:23 Keflex) ciprofloxacin (From Cipro) Allergy Hives Verified 10/18/24 17:23 ciprofloxacin HCl (From Allergy Hives Verified 10/18/24 17:23 Cipro) citalopram hydrobromide Allergy Unknown Verified 10/18/24 17:23 (From Celexa) clarithromycin (From Biaxin) Allergy Unknown Verified 10/18/24 17:23 codeine Allergy Unknown Verified 10/18/24 17:23 diltiazem HCl (From Cardizem) Allergy Unknown Verified 10/18/24 17:23 fluoxetine HCl (From Prozac) Allergy Unknown Verified 10/18/24 17:23 fluticasone (From Advair Allergy Swelling Verified 10/18/24 17:23 Diskus) fluticasone propionate (From Allergy Other Verified 10/18/24 17:23 Advair Diskus) hydrochlorothiazide (From Allergy Unknown Verified 10/18/24 17:23 Hyzaar) ipratropium bromide (From Allergy Unknown Verified 10/18/24 17:23 Atrovent) labetalol Allergy Rash Verified 10/18/24 17:23 lamotrigine (From Lamictal) Allergy Unknown Verified 10/18/24 17:23 latex Allergy Unknown Verified 10/18/24 17:23 liraglutide (From Victoza) Allergy Unknown Verified 10/18/24 17:23 losartan potassium (From Allergy Unknown Verified 10/18/24 17:23 Hyzaar) meloxicam (From Mobic) Allergy Other Verified 10/18/24 17:23 nitrofurantoin (From Allergy Hives Verified 10/18/24 17:23 Macrobid) nitrofurantoin Allergy Hives Verified 10/18/24 17:23 macrocrystalline (From Macrobid) Penicillins Allergy Rash Verified 10/18/24 17:23 pineapple Allergy Other Verified 10/18/24 17:23 quetiapine fumarate (From Allergy Unknown Verified 10/18/24 17:23 Seroquel) salmeterol (From Advair Allergy Swelling Verified 10/18/24 17:23 Diskus) salmeterol xinafoate (From Allergy Other Verified 10/18/24 17:23 Advair Diskus) sertraline HCl (From Zoloft) Allergy Unknown Verified 10/18/24 17:23 simvastatin (From Zocor) Allergy Unknown Verified 10/18/24 17:23 topiramate (From Topamax) Allergy Unknown Verified 10/18/24 17:23 verapamil HCl (From Allergy Unknown Verified 10/18/24 17:23 Covera-HS) zonisamide (From Zonegran) Allergy Shortness Verified 10/18/24 17:23 of breath acetaminophen (From Lortab) AdvReac Nausea Verified 10/18/24 17:23 hydrocodone bitartrate (From AdvReac Nausea Verified 10/18/24 17:23 Lortab) ramipril (From Altace) AdvReac Laryngospas Verified 10/18/24 17:23 ms sulfamethoxazole (From AdvReac Unknown Verified 10/18/24 17:23 Septra) trimethoprim (From Septra) AdvReac Unknown Verified 10/18/24 17:23 Surgical History History of bladder repair surgery History of carpal tunnel release History of cholecystectomy History of hysterectomy Social History household members: caregiver and none housing: apartment current occupational status: disabled current occupation: Patient is disabled due to Parkinson's disease Smoking Status: Never smoker alcohol intake: never substance use type: does not use ROS ROS ED Constitutional Constitutional ED: Denies chills or fever(s) Eyes Eyes: Denies change in vision or diplopia ENT ENT ED: Denies rhinorrhea or sore throat Cardiovascular Cardiovascular: Denies chest pain or palpitations Respiratory/Chest Respiratory/Chest: Denies cough or dyspnea Gastrointestinal Gastrointestinal: Denies abdominal pain, diarrhea, nausea or vomiting Genitourinary Genitourinary ED: Denies dysuria or hematuria Musculoskeletal Musculoskeletal: Reports as per HPI, abnormal gait and back pain; Denies neck pain Integumentary Denies abscess or rash Neurologic Neurologic: Reports as per HPI, paresthesias LUE (intermittent, not present now)and tremor(s); Denies headache(s), vertigo or weakness Psychiatric Psychiatric: Denies anxiety or suicidal thoughts EXAM Physical Exam Const Vital Signs: 10/18/24 17:19 10/18/24 17:23 Temperature 99 F Temperature Source Oral Pulse Rate 71 Respiratory Rate 18 Respiratory Effort Normal Non-Labored Respiratory Pattern Normal Blood Pressure 137/75 H Blood Pressure Mean 95 Pulse Ox 98 Oxygen Delivery Method Room Air Positive well nourished, well developed and obese General Appearance ED: well developed and NAD Nutritional Appearance: obese HEENT Reports moist mucous membranes normocephalic and atraumatic Eyes PERRL and EOMs intact bilaterally Neck Neck Narrative: EMS c-collar in place. Patient has very mild tenderness in the mid cervical spine midline there is no palpable step-off or obvious signs of injury/trauma externally. Resp normal respiratory effort and clear to auscultation bilaterally Cardio regular rate, regular rhythm and no murmurs GI non-tender and non-distended Auscultation: normoactive bowel sounds Palpation: soft Back/Spine no CVA tenderness Back/Spine Narrative: Limited range of motion due to pain in the lower back. Patient indicates that for the past 4 days she has been having pain in the T3-4 area but there is no reproducible midline tenderness right now including the lumbar spine. Extremity normal to inspection General Extremety ED: Negative for edema, pulses abnormal or tenderness General Extremity: Negative for edema or pulses abnormal Neuro oriented x3, CN's II-XII intact bilaterally and no sensory deficits noted Neuro Narrative: Resting tremor both upper extremities worse on the right. No sensory deficits including special attention to the left upper extremity. Sensorium / Orientation: awake and alert Motor Exam: general weakness Psych mental status grossly normal Skin no rashes or lesions noted and no wounds MDM MDM MDM Narrative Medical decision making narrative: I do not have access to the patient's outpatient x-rays nor his report. Apparently the concern was that she had wedge fractures in C3 and C5. Her pain,however is in the upper thoracic region and she is not having the pain right nowbut when she moves certain way sometimes she gets it. For these reasons I obtained CT scans of the cervical and thoracic spine. I reviewed images and report which I agree with, they are basically negative for any type of fracture. There are chronic abnormalities noted but not necessarily focal to these areas. C-collar removed patient is able to move her head and neck, and stable for discharge. Radiography Diagnostic Testing: Clinical Impression(s) from Imaging Studies Cervical Spine CT 10/18/24 17:51 IMPRESSION: 1. No acute cervical spine fracture or traumatic malalignment. 2. Mild multilevel spondylotic changes, as described. 3. Enlarged heterogeneous nodular thyroid; ultrasound may further characterize. Reading Location: [facility] Thoracic Spine CT 10/18/24 17:51 IMPRESSION: No acute fracture or malalignment. Mild spondylotic changes. Reading Location: [facility] Discharge Plan Triage Chief Complaint: Other, Pain/Inj ED Provider: Luis Mcdonald Dx/Rx/DC Orders Clinical Impression: Acute thoracic myofascial strain, Abnormal x-ray of neck Instructions: ED Back Sprain/Strain Prescriptions: No Action metoprolol tartrate 25 mg tablet 25 mg PO BID Qty: 180 3RF Eliquis 5 mg tablet 5 mg PO BID Qty: 180 3RF oxybutynin chloride 15 mg tablet extended release 24hr 15 mg PO BID clonidine HCl 0.3 MG tablet 1 tab PO BID amlodipine 10 MG tablet 1 tab PO DAILY cyclobenzaprine 10 MG tablet 10 mg PO QHS PRN (Reason: LEG CRAMPS) insulin degludec [Tresiba FlexTouch U-200] 200 unit/mL (3 mL) Insulin Pen 56 unit SUBCUT QHS Patient Comments: 03/31 has not taken for 3 days d/t hypoglycemia/anorexia acetaminophen 500 mg Tablet 1,000 mg PO Q6H PRN PRN (Reason: Pain Score 1-10) Qty: 0 0RF Mag 64 64 mg Tablet,Delayed Release (Dr/Ec) 128 mg PO DAILY 30 Days Qty: 60 0RF famotidine [famotidine] 20 mg tablet 20 mg PO BID Qty: 10 0RF methimazole 10 mg tablet 15 mg PO DAILY 30 Days Qty: 45 1RF Primary Care Provider: Pb Wallace Referrals: Pb Wallace MD [Primary Care Provider] - Print Language: Uzbek Disposition Disposition: Home, Self Care What to do if you have Problems For any increased pain, shortness of breath, bleeding, nausea or vomiting, chestpain, or any unexpected problems, contact your Primary Care Provider. Call [facility] ([phone]) or report to the closest Emergency Room. Call 911 if necessary. 10/18/241928 <Electronically signed by Luis Mcdonald MD> Cosigner Signature (if applicable): CC: Dr. Pb Wallace MD ~ Signed [facility] Work Phone: [phone] Radiology Diagnostic study note [facility] Imaging Services [address] [place] [address] Ribs Uni Min 3V w/PA Chest MR#: [id number] Acct: [id number] Name: TIFFANIE VILLAFANA Rep #: [id number] : 1955 F 69 From: Pet er Raquel AHN PCP: CLEMENCIA MILLER Status: REG ER Study:Ribs Uni Min 3V w/PA Chest Date of Exam : 08/15/24 Exam# [id number] Ordering Dr: Wellington Myrick DO ADDENDUM by Dr. Juaquin Mcqueen DO on 08/15/24 at 1346 Comparison: None. Findings: No displaced rib fractures are identified. Heart size is normal. Lungs are clear. No pneumothorax or pleural effusion. Impression No displaced rib fracture identified. Other findings above. Reading [facility] 08/15/24 1346 Date cc: Dr. Wellington Law DO; CLEMENCIA MILLER ~* Signed PROCEDURE: RIBS UNI MIN 3 V w/PA CHEST 08/15/2024 REASON FOR EXAM: LEFT-SIDED RIB PAIN TECHNIQUE: RIBS UNI MIN 3V W/PA CHEST FINDINGS: Findings: Other: Reading Location: [facility] CC: Dr. Wellington BarriosMercyone Primghar Medical CenterGarrick, DO; CLEMENCIA MILLER ~ 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: Signed [facility]05-30-2025 Discharge summary Author Luis Mcdonald [facility] Note Date/Time July 29, 2024 2:31p m [facility] Medical Records Department [address] [place] [address] Emergency Department Summary 07/29/24 MR#: [id number] Acct: [id number] Name: TIFFANIE VILLAFANA Rep #:[id number] : 1955 69 From: Luis Mcdonald MD PCP: CLEMENCIA MILLER Status:REG ER Location: ED HPI History of Present Illness Chief Complaint: Back Informant: patient Narrative Narrative: 69-year-old female has been feeling weak for the past 5 or 6 days, she had a minor fall couple days ago, she also states that her blood pressure has been running low in the high 80s for the last couple days. She lives alone has severe Parkinson's, she has an aide that comes to help her. In the last day or 2 she has had urinary symptoms and low back pain. Thinks maybe she has a bladder infection. She denies any hematuria, lateralizing pain in her low back, vomiting, or fevers. She denies any cough or dyspnea. She denies any weakness or numbness focally in her legs, or pain radiating down her legs. She denies injuring herself when she fell the other day, including her back and her head. [facility] Medical History Paroxysmal atrial flutter Thyrotoxicosis due to Graves' disease Anxiety Depression Diabetes Non-smoker Asthma History of left heart catheterization Hyperlipidemia Hypertension Tremor Home Medications ?Medication ?Instructions ?Recorded ?Last Taken ?Type amlodipine 10 mg tablet 1 tab PO DAILY BLOOD PRESSUR E 05/27/17 04/03/23 History clonidine HCl 0.3 mg tablet 1 tab PO BID BLOOD PRESSUR E 05/27/17 04/03/23 History cyclobenzaprine 10 mg tablet 10 mg PO QHS PRN LEG CRAM PS 05/27/17 04/02/23 History insulin degludec 200 unit/mL (3 56 unit subcut QHS MONALISA BETES 09/21/20 Unknown History mL) subcutaneous pen (Tresiba FlexTouch U-200 insulin) acetaminophen 500 mg tablet 1,000 mg (2 x 500 mg) PO Q 6H PRN 04/21/23 Unknown Rx PRN Pain Score 1-10 #0 tabs magnesium chloride 64 mg 128 mg (2 x 64 mg) PO DAILY 30 04/21/23 Unknown Rx (magnesium chloride) days #60 tabs tablet,delayed release (Mag 64) oxybutynin chloride 15 mg 15 mg PO BID 05/01/23 Unknow n History tablet,extended release 24 hr apixaban 5 mg tablet (Eliquis) 5 mg PO BID blood thinn er #180 tabs 05/04/23 Unknown Rx metoprolol tartrate 25 mg tablet 25 mg PO BID heart/pu lse #180 tabs 05/04/23 Unknown Rx famotidine 20 mg tablet 20 mg PO BID #10 TABLETS 10/23 Unknown Rx methimazole 10 mg tablet 15 mg (1.5 x 10 mg) PO DAILY 05/08/23 Unknown Rx thyroid 30 days #45 tabs Allergy/AdvReac Type Severity Reaction Status Date / Time adhesive tape Allergy Other Verified 12/24/23 16:44 apple Allergy Swelling Verified 12/24/23 16:44 cephalexin monohydrate (From Allergy Other Verified 12/24/23 16:44 Keflex) ciprofloxacin (From Cipro) Allergy Hives Verified 12/24/23 16:44 ciprofloxacin HCl (From Allergy Hives Verified 12/24/23 16:44 Cipro) citalopram hydrobromide Allergy Unknown Verified 12/24/23 16:44 (From Celexa) clarithromycin (From Biaxin) Allergy Unknown Verified 12/24/23 16:44 codeine Allergy Unknown Verified 12/24/23 16:44 diltiazem HCl (From Cardizem) Allergy Unknown Verified 12/24/23 16:44 fluoxetine HCl (From Prozac) Allergy Unknown Verified 12/24/23 16:44 fluticasone (From Advair Allergy Swelling Verified 12/24/23 16:44 Diskus) fluticasone propionate (From Allergy Other Verified 12/24/23 16:44 Advair Diskus) hydrochlorothiazide (From Allergy Unknown Verified 12/24/23 16:44 Hyzaar) ipratropium bromide (From Allergy Unknown Verified 12/24/23 16:44 Atrovent) labetalol Allergy Rash Verified 12/24/23 16:44 lamotrigine (From Lamictal) Allergy Unknown Verified 12/24/23 16:44 latex Allergy Unknown Verified 12/24/23 16:44 liraglutide (From Victoza) Allergy Unknown Verified 12/24/23 16:44 losartan potassium (From Allergy Unknown Verified 12/24/23 16:44 Hyzaar) meloxicam (From Mobic) Allergy Other Verified 12/24/23 16:44 nitrofurantoin (From Allergy Hives Verified 12/24/23 16:44 Macrobid) nitrofurantoin Allergy Hives Verified 12/24/23 16:44 macrocrystalline (From Macrobid) Penicillins Allergy Rash Verified 12/24/23 16:44 pineapple Allergy Other Verified 12/24/23 16:44 quetiapine fumarate (From Allergy Unknown Verified 12/24/23 16:44 Seroquel) salmeterol (From Advair Allergy Swelling Verified 12/24/23 16:44 Diskus) salmeterol xinafoate (From Allergy Other Verified 12/24/23 16:44 Advair Diskus) sertraline HCl (From Zoloft) Allergy Unknown Verified 12/24/23 16:44 simvastatin (From Zocor) Allergy Unknown Verified 12/24/23 16:44 topiramate (From Topamax) Allergy Unknown Verified 12/24/23 16:44 verapamil HCl (From Allergy Unknown Verified 12/24/23 16:44 Covera-HS) zonisamide (From Zonegran) Allergy Shortness Verified 12/24/23 16:44 of breath acetaminophen (From Lortab) AdvReac Nausea Verified 12/24/23 16:44 hydrocodone bitartrate (From AdvReac Nausea Verified 12/24/23 16:44 Lortab) ramipril (From Altace) AdvReac Laryngospas Verified 12/24/23 16:44 ms sulfamethoxazole (From AdvReac Unknown Verified 12/24/23 16:44 Septra) trimethoprim (From Septra) AdvReac Unknown Verified 12/24/23 16:44 Surgical History History of bladder repair surgery History of carpal tunnel release History of cholecystectomy History of hysterectomy Social History household members: none housing: apartment current occupational status: disabled current occupation: Patient is disabled due to Parkinson's disease Smoking Status: Never smoker alcohol intake: never substance use type: does not use ROS ROS ED Constitutional Constitutional ED: Reports fatigue and weakness; Denies chills or fever(s) Eyes Eyes: Denies change in vision or diplopia ENT ENT ED: Denies rhinorrhea or sore throat Cardiovascular Cardiovascular: Denies chest pain or palpitations Respiratory/Chest Respiratory/Chest: Denies cough or dyspnea Gastrointestinal Gastrointestinal: Reports other Details: Suprapubic pressure no other abdominal pain ; Denies diarrhea, nausea or vomiting Genitourinary Genitourinary ED: Reports dysuria and urinary frequency; Denies hematuria Musculoskeletal Musculoskeletal: Reports back pain; Denies neck pain Integumentary Denies abscess or rash Neurologic Neurologic: Reports tremor(s); Denies headache(s), paresthesias or weakness Psychiatric Psychiatric: Denies suicidal thoughts EXAM Physical Exam Const Vital Signs: 07/29/24 09:29 07/29/24 10:32 07/29/24 11:00 Temperature 97.6 F L 98 F 98 F Temperature Source Oral Oral Oral Pulse Rate 78 75 77 Respiratory Rate 16 16 16 Blood Pressure 148/108 H 165/76 H 164/82 H Blood Pressure Mean 121 105 109 Pulse Ox 99 98 98 Oxygen Delivery Method Room Air Room Air Room Air 07/29/24 12:00 07/29/24 13:00 Temperature 98 F 98 F Temperature Source Oral Oral Pulse Rate 77 73 Respiratory Rate 16 18 Blood Pressure 165/76 H 151/71 H Blood Pressure Mean 105 97 Pulse Ox 98 98 Oxygen Delivery Method Room Air Room Air Positive well nourished, well developed and obese General Appearance ED: well developed and NAD Nutritional Appearance: obese HEENT Reports moist mucous membranes normocephalic and atraumatic Eyes PERRL and EOMs intact bilaterally Neck full ROM and supple Resp normal respiratory effort and clear to auscultation bilaterally Cardio regular rate, regular rhythm and no murmurs GI non-tender and non-distended Auscultation: normoactive bowel sounds Palpation: soft Back/Spine no CVA tenderness General Back: other FROM Extremity normal to inspection General Extremety ED: Negative for edema, pulses abnormal or tenderness General Extremity: Negative for edema or pulses abnormal Neuro oriented x3, CN's II-XII intact bilaterally and no sensory deficits noted Neuro Narrative: Significant resting tremor both upper extremities Sensorium / Orientation: awake and alert Motor Exam: strength 5/5 throughout Psych Mood & Affect: anxious Skin no rashes or lesions noted and no wounds MDM MDM MDM Narrative Medical decision making narrative: Patient suggesting possible symptoms of a UTI and feeling generally weak. For work her up for sepsis, her lactate is normal, she does not have a leukocytosis or leftward shift, and her cath urine shows no signs of acute infection. Therefore given the hypotension she described having at home over the last couple days and her low back pain, I thought reasonable to obtain CT of the abdomen/pelvis with IV contrast, to rule out AAA/rupture, retroperitoneal process, or an intra-abdominal abscess/infection. I reviewed the images of this and the report it was unremarkable. Radiology did note that she has quite a bit of stool in the colon. Patient states she last had a bowel movement about a week ago, and with her Parkinson's and relative immobility she commonly goes 2 weeks for a month without a bowel movement. She was given fentanyl for her back pain earlier and now she states it is severe and she wants more narcotics but I do not recommend it. If this is constipation is giving her back pain, could make that worse, she understands and is amenable to a shot of a muscle relaxer beforegoing home. She is comfortable going home and wants to do so anyway, she does not have any medical reasons for acute admission to hospital at this time. She is comfortable following up after the weekend with her doctor. Lab Data Attestation: I reviewed the patient's lab results. Labs: Laboratory Results - last 24 hr 07/29/24 07/29/24 10:10 11:55 WBC 9.5 RBC 5.03 Hgb 13.4 Hct 41.8 MCV 83.1 MCH 26.6 L MCHC 32.1 RDW Std Deviation 44.8 H RDW Coeff of Rico 14.8 H Plt Count 230 MPV 12.1 H Immature Gran % (Auto) 0.500 Neut % (Auto) 69.8 Lymph % (Auto) 19.5 [place] % (Auto) 7.1 Eos % (Auto) 2.5 Baso % (Auto) 0.6 Absolute Neuts (auto) 6.6 Absolute Lymphs (auto) 1.85 Nucleated RBC % 0 Sodium 139 Potassium 4.9 Chloride 103 Carbon Dioxide 25.0 Anion Gap 11 BUN 17 Creatinine 1.00 Estim Creat Clear Calc 61.31 Est GFR (MDRD) Non-Af 62 BUN/Creatinine Ratio 17.2 Glucose 110 H Lactic Acid 1.2 Calcium 9.8 Total Bilirubin 0.30 AST 20 ALT 12 Alkaline Phosphatase 109 H Total Protein 7.4 Albumin 4.0 Globulin 3.4 Albumin/Globulin Ratio 1.2 Urine Color Straw Urine Clarity Clear Urine pH 7.0 Ur Specific [place] 1.010 Urine Protein 30 H Urine Glucose (UA) Normal Urine Ketones Negative Urine Occult Blood 10 H Urine Nitrite Negative Urine Bilirubin Negative Urine Urobilinogen Normal Ur Leukocyte Esterase Negative Urine RBC 0-5 SEEN Urine WBC 0-5 SEEN Ur Squamous Epith Cells 0-5 SEEN Urine Bacteria 1+ Urine Mucus 0 SEEN Radiography Diagnostic Testing: Clinical Impression(s) from Imaging Studies Chest X-Ray 07/29/24 10:16 IMPRESSION: No acute cardiopulmonary process. [facility]/Pelvis CT 07/29/24 12:50 IMPRESSION: 1. Small anterior ventral hernia of the lower mid abdomen containing fat. No bowel obstruction. 2. Small esophageal hiatal hernia. 3. Hepatomegaly with fatty infiltration. 4. Fecal retention in the colon consistent with constipation. Reading Location: [facility] Rhythm Strip Rhythm Strip: Sinus Rhythm Rate: 67 Ectopy: None EKG Initial EKG: Attestation: I personally reviewed and interpreted this EKG as follows: Interpretation: Sinus Rhythm and No Acute Injury Pattern Prior EKG tracings: available for review Prior: Unchanged Discharge Plan Triage Chief Complaint: Back ED Provider: Luis Mcdonald Dx/Rx/DC Orders Clinical Impression: Generalized weakness, Parkinson disease, Acute low back pain, Constipation, Anticoagulated on Eliquis Instructions: ED Back Pain (Acute or Chronic), ED Weakness Uncertain Cause Prescriptions: No Action metoprolol tartrate 25 mg tablet 25 mg PO BID Qty: 180 3RF Eliquis 5 mg tablet 5 mg PO BID Qty: 180 3RF oxybutynin chloride 15 mg tablet extended release 24hr 15 mg PO BID clonidine HCl 0.3 MG tablet 1 tab PO BID amlodipine 10 MG tablet 1 tab PO DAILY cyclobenzaprine 10 MG tablet 10 mg PO QHS PRN (Reason: LEG CRAMPS) insulin degludec [Tresiba FlexTouch U-200] 200 unit/mL (3 mL) Insulin Pen 56 unit SUBCUT QHS Patient Comments: 03/31 has not taken for 3 days d/t hypoglycemia/anorexia acetaminophen 500 mg Tablet 1,000 mg PO Q6H PRN PRN (Reason: Pain Score 1-10) Qty: 0 0RF Mag 64 64 mg Tablet,Delayed Release (Dr/Ec) 128 mg PO DAILY 30 Days Qty: 60 0RF famotidine [famotidine] 20 mg tablet 20 mg PO BID Qty: 10 0RF methimazole 10 mg tablet 15 mg PO DAILY 30 Days Qty: 45 1RF Primary Care Provider: CLEMENCIA MILLER Referrals: CLEMENCIA MILLER [Other] - As soon as possible Print Language: Uzbek Disposition Disposition: Home, Self Care What to do if you have Problems For any increased pain, shortness of breath, bleeding, nausea or vomiting, chest pain, or any unexpected problems, contact your Primary Care Provider. Call [facility] ([phone]) or report to the closest Emergency Room. Call 911 if necessary. 07/29/24 1431 <Electronically signed by Luis Mcdonald MD> Cosigner Signature (if applicable): CC: CLEMENCIA MILLER ~ Signed [facility] Work Phone: [phone]) 345-174405-30-2025 Discharge summary [facility] Medical Records Department [address] [place] [address] Emergency Department Summary 07/29/24 MR#: [id number] Acct: [id number] Name: TIFFANIE VILLAFANA Rep #:[id number] : 1955 69 From: Luis Mcdonald MD PCP: CLEMENCIA MILLER Status:REG ER Location: ED HPI History of Present Illness Chief Complaint: Back Informant: patient Narrative Narrative: 69-year-old female has been feeling weak for the past 5 or 6 days, she had a minor fall couple daysago, she also states that her blood pressure has been running low in the high 80s for the last couple days. She lives alone has severe Parkinson's, she has an aide that comes to help her. In the lastday or 2 she has had urinary symptoms and low back pain. Thinks maybe she has a bladder infection. She denies any hematuria, lateralizing pain in her low back, vomiting, or fevers. She denies any cough or dyspnea. She denies any weakness or numbness focally in her legs, or pain radiating down her legs. She denies injuring herself when she fell the other day, including her back and her head. [facility] Medical History Paroxysmal atrial flutter Thyrotoxicosis due to Graves' disease Anxiety Depression Diabetes Non-smoker Asthma History of left heart catheterization Hyperlipidemia Hypertension Tremor Home Medications ?Medication ?Instructions ?Recorded ?Last Taken ?Type amlodipine 10 mg tablet 1 tab PO DAILY BLOOD PRESSUR E 05/27/17 04/03/23 History clonidine HCl 0.3 mg tablet 1 tab PO BID BLOOD PRESSUR E 05/27/17 04/03/23 History cyclobenzaprine 10 mg tablet 10 mg PO QHS PRN LEG CRAM PS 05/27/17 04/02/23 History insulin degludec 200 unit/mL (3 56 unit subcut QHS MONALISA BETES 09/21/20 Unknown History mL) subcutaneous pen (Tresiba FlexTouch U-200 insulin) acetaminophen 500 mg tablet 1,000 mg (2 x 500 mg) PO Q 6H PRN 04/21/23 Unknown Rx PRN Pain Score 1-10 #0 tabs magnesium chloride 64 mg 128 mg (2 x 64 mg) PO DAILY 30 04/21/23 Unknown Rx (magnesium chloride) days #60 tabs tablet,delayed release (Mag 64) oxybutynin chloride 15 mg 15 mg PO BID 05/01/23 Unknow n History tablet,extended release 24 hr apixaban 5 mg tablet (Eliquis) 5 mg PO BID blood thinn er #180 tabs 05/04/23 Unknown Rx metoprolol tartrate 25 mg tablet 25 mg PO BID heart/pu lse #180 tabs 05/04/23 Unknown Rx famotidine 20 mg tablet 20 mg PO BID #10 TABLETS 10/23 Unknown Rx methimazole 10 mg tablet 15 mg (1.5 x 10 mg) PO DAILY 05/08/23 Unknown Rx thyroid 30 days #45 tabs Allergy/AdvReac Type Severity Reaction Status Date / Time adhesive tape Allergy Other Verified 12/24/23 16:44 apple Allergy Swelling Verified 12/24/23 16:44 cephalexin monohydrate (From Allergy Other Verified 12/24/23 16:44 Keflex) ciprofloxacin (From Cipro) Allergy Hives Verified 12/24/23 16:44 ciprofloxacin HCl (From Allergy Hives Verified 12/24/23 16:44 Cipro) citalopram hydrobromide Allergy Unknown Verified 12/24/23 16:44 (From Celexa) clarithromycin (From Biaxin) Allergy Unknown Verified 12/24/23 16:44 codeine Allergy Unknown Verified 12/24/23 16:44 diltiazem HCl (From Cardizem) Allergy Unknown Verified 12/24/23 16:44 fluoxetine HCl (From Prozac) Allergy Unknown Verified 12/24/23 16:44 fluticasone (From Advair Allergy Swelling Verified 12/24/23 16:44 Diskus) fluticasone propionate (From Allergy Other Verified 12/24/23 16:44 Advair Diskus) hydrochlorothiazide (From Allergy Unknown Verified 12/24/23 16:44 Hyzaar) ipratropium bromide (From Allergy Unknown Verified 12/24/23 16:44 Atrovent) labetalol Allergy Rash Verified 12/24/23 16:44 lamotrigine (From Lamictal) Allergy Unknown Verified 12/24/23 16:44 latex Allergy Unknown Verified 12/24/23 16:44 liraglutide (From Victoza) Allergy Unknown Verified 12/24/23 16:44 losartan potassium (From Allergy Unknown Verified 12/24/23 16:44 Hyzaar) meloxicam (From Mobic) Allergy Other Verified 12/24/23 16:44 nitrofurantoin (From Allergy Hives Verified 12/24/23 16:44 Macrobid) nitrofurantoin Allergy Hives Verified 12/24/23 16:44 macrocrystalline (From Macrobid) Penicillins Allergy Rash Verified 12/24/23 16:44 pineapple Allergy Other Verified 12/24/23 16:44 quetiapine fumarate (From Allergy Unknown Verified 12/24/23 16:44 Seroquel) salmeterol (From Advair Allergy Swelling Verified 12/24/23 16:44 Diskus) salmeterol xinafoate (From Allergy Other Verified 12/24/23 16:44 Advair Diskus) sertraline HCl (From Zoloft) Allergy Unknown Verified 12/24/23 16:44 simvastatin (From Zocor) Allergy Unknown Verified 12/24/23 16:44 topiramate (From Topamax) Allergy Unknown Verified 12/24/23 16:44 verapamil HCl (From Allergy Unknown Verified 12/24/23 16:44 Covera-HS) zonisamide (From Zonegran) Allergy Shortness Verified 12/24/23 16:44 of breath acetaminophen (From Lortab) AdvReac Nausea Verified 12/24/23 16:44 hydrocodone bitartrate (From AdvReac Nausea Verified 12/24/23 16:44 Lortab) ramipril (From Altace) AdvReac Laryngospas Verified 12/24/23 16:44 ms sulfamethoxazole (From AdvReac Unknown Verified 12/24/23 16:44 Septra) trimethoprim (From Septra) AdvReac Unknown Verified 12/24/23 16:44 Surgical History History of bladder repair surgery History of carpal tunnel release History of cholecystectomy History of hysterectomy Social History household members: none housing: apartment current occupational status: disabled current occupation: Patient is disabled due to Parkinson's disease Smoking Status: Never smoker alcohol intake: never substance use type: does not use ROS ROS ED Constitutional Constitutional ED: Reports fatigue and weakness; Denies chills or fever(s) Eyes Eyes: Denies change in vision or diplopia ENT ENT ED: Denies rhinorrhea or sore throat Cardiovascular Cardiovascular: Denies chest pain or palpitations Respiratory/Chest Respiratory/Chest: Denies cough or dyspnea Gastrointestinal Gastrointestinal: Reports other Details: Suprapubic pressure no other abdominal pain ; Denies diarrhea, nausea or vomiting Genitourinary Genitourinary ED: Reports dysuria and urinary frequency; Denies hematuria Musculoskeletal Musculoskeletal: Reports back pain; Denies neck pain Integumentary Denies abscess or rash Neurologic Neurologic: Reports tremor(s); Denies headache(s), paresthesias or weakness Psychiatric Psychiatric: Denies suicidal thoughts EXAM Physical Exam Const Vital Signs: 07/29/24 09:29 07/29/24 10:32 07/29/24 11:00 Temperature 97.6 F L 98 F 98 F Temperature Source Oral Oral Oral Pulse Rate 78 75 77 Respiratory Rate 16 16 16 Blood Pressure 148/108 H 165/76 H 164/82 H Blood Pressure Mean 121 105 109 Pulse Ox 99 98 98 Oxygen Delivery Method Room Air Room Air Room Air 07/29/24 12:00 07/29/24 13:00 Temperature 98 F 98 F Temperature Source Oral Oral Pulse Rate 77 73 Respiratory Rate 16 18 Blood Pressure 165/76 H 151/71 H Blood Pressure Mean 105 97 Pulse Ox 98 98 Oxygen Delivery Method Room Air Room Air Positive well nourished, well developed and obese General Appearance ED: well developed and NAD Nutritional Appearance: obese HEENT Reports moist mucous membranes normocephalic and atraumatic Eyes PERRL and EOMs intact bilaterally Neck full ROM and supple Resp normal respiratory effort and clear to auscultation bilaterally Cardio regular rate, regular rhythm and no murmurs GI non-tender and non-distended Auscultation: normoactive bowel sounds Palpation: soft Back/Spine no CVA tenderness General Back: other FROM Extremity normal to inspection General Extremety ED: Negative for edema, pulses abnormal or tenderness General Extremity: Negative for edema or pulses abnormal Neuro oriented x3, CN's II-XII intact bilaterally and no sensory deficits noted Neuro Narrative: Significant resting tremor both upper extremities Sensorium / Orientation: awake and alert Motor Exam: strength 5/5 throughout Psych Mood & Affect: anxious Skin no rashes or lesions noted and no wounds MDM MDM MDM Narrative Medical decision making narrative: Patient suggesting possible symptoms of a UTI and feeling generally weak. For work her up for sepsis, her lactate is normal, she does not have a leukocytosis or leftward shift, and her cath urine shows no signs of acute infection. Therefore given the hypotension she described having at home over the last couple days and her low back pain, I thought reasonable to obtain CT of the abdomen/pelvis with IV contrast, to rule out AAA/rupture, retroperitoneal process, or an intra-abdominal abscess/infection. I reviewed the images of this and the report it was unremarkable. Radiology did note that shehas quite a bit of stool in the colon. Patient states she last had a bowel movement about a week ago, and with her Parkinson's and relative immobility she commonly goes 2 weeks for a month without a bowel movement. She was given fentanyl for her back pain earlier and now she states it is severe andshe wants more narcotics but I do not recommend it. If this is constipation is giving her back pain, could make that worse, she understands and is amenable to a shot of a muscle relaxer beforegoing home. She is comfortable going home and wants to do so anyway, she does not have any medical reasons for acute admission to hospital at this time. She is comfortable following up after the weekend withher doctor. Lab Data Attestation: I reviewed the patient's lab results. Labs: Laboratory Results - last 24 hr 07/29/24 07/29/24 10:10 11:55 WBC 9.5 RBC 5.03 Hgb 13.4 Hct 41.8 MCV 83.1 MCH 26.6 L MCHC 32.1 RDW Std Deviation 44.8 H RDW Coeff of [place] 14.8 H Plt Count 230 MPV 12.1 H Immature Gran % (Auto) 0.500 Neut % (Auto) 69.8 Lymph % (Auto) 19.5 [place] % (Auto) 7.1 Eos % (Auto) 2.5 Baso % (Auto) 0.6 Absolute Neuts (auto) 6.6 Absolute Lymphs (auto) 1.85 Nucleated RBC % 0 Sodium 139 Potassium 4.9 Chloride 103 Carbon Dioxide 25.0 Anion Gap 11 BUN 17 Creatinine 1.00 Estim Creat Clear Calc 61.31 Est GFR (MDRD) Non-Af 62 BUN/Creatinine Ratio 17.2 Glucose 110 H Lactic Acid 1.2 Calcium 9.8 Total Bilirubin 0.30 AST 20 ALT 12 Alkaline Phosphatase 109 H Total Protein 7.4 Albumin 4.0 Globulin 3.4 Albumin/Globulin Ratio 1.2 Urine Color Straw Urine Clarity Clear Urine pH 7.0 Ur Specific [place] 1.010 Urine Protein 30 H Urine Glucose (UA) Normal Urine Ketones Negative Urine Occult Blood 10 H Urine Nitrite Negative Urine Bilirubin Negative Urine Urobilinogen Normal Ur Leukocyte Esterase Negative Urine RBC 0-5 SEEN Urine WBC 0-5 SEEN Ur Squamous Epith Cells 0-5 SEEN Urine Bacteria 1+ Urine Mucus 0 SEEN Radiography Diagnostic Testing: Clinical Impression(s) from Imaging Studies Chest X-Ray 07/29/24 10:16 IMPRESSION: No acute cardiopulmonary process. Reading Location: [facility] Abdomen/Pelvis CT 07/29/24 12:50 IMPRESSION: 1. Small anterior ventral hernia of the lower mid abdomen containing fat. No bowel obstruction. 2. Small esophageal hiatal hernia. 3. Hepatomegaly with fatty infiltration. 4. Fecal retention in the colon consistent with constipation. Reading Location: [facility] Rhythm Strip Rhythm Strip: Sinus Rhythm Rate: 67 Ectopy: None EKG Initial EKG: Attestation: I personally reviewed and interpreted this EKG as follows: Interpretation: Sinus Rhythm and No Acute Injury Pattern Prior EKG tracings: available for review Prior: Unchanged Discharge Plan Triage Chief Complaint: Back ED Provider: Luis Mcdonald Dx/Rx/DC Orders Clinical Impression: Generalized weakness, Parkinson disease, Acute low back pain, Constipation, Anticoagulated on Eliquis Instructions: ED Back Pain (Acute or Chronic), ED Weakness Uncertain Cause Prescriptions: No Action metoprolol tartrate 25 mg tablet 25 mg PO BID Qty: 180 3RF Eliquis 5 mg tablet 5 mg PO BID Qty: 180 3RF oxybutynin chloride 15 mg tablet extended release 24hr 15 mg PO BID clonidine HCl 0.3 MG tablet 1 tab PO BID amlodipine 10 MG tablet 1 tab PO DAILY cyclobenzaprine 10 MG tablet 10 mg PO QHS PRN (Reason: LEG CRAMPS) insulin degludec [Tresiba FlexTouch U-200] 200 unit/mL (3 mL) Insulin Pen 56 unit SUBCUT QHS Patient Comments: 03/31 has not taken for 3 days d/t hypoglycemia/anorexia acetaminophen 500 mg Tablet 1,000 mg PO Q6H PRN PRN (Reason: Pain Score 1-10) Qty: 0 0RF Mag 64 64 mg Tablet,Delayed Release (Dr/Ec) 128 mg PO DAILY 30 Days Qty: 60 0RF famotidine [famotidine] 20 mg tablet 20 mg PO BID Qty: 10 0RF methimazole 10 mg tablet 15 mg PO DAILY 30 Days Qty: 45 1RF Primary Care Provider: CLEMENCIA MILLER Referrals: CLEMENCIA MILLER [Other] - As soon as possible Print Language: Uzbek Disposition Disposition: Home, Self Care What to do if you have Problems For any increased pain, shortness of breath, bleeding, nausea or vomiting, chest pain, or any unexpected problems, contact your Primary Care Provider. Call [facility] ([phone]) or report to the closest Emergency Room. Call 911 if necessary. 07/29/24 1431 Cosigner Signature (if applicable): CC: CLEMENCIA MILLER ~ Signed [facility]05-30-2025 Radiology Diagnostic study note [facility] Imaging Services [address] [place] [address] Abdomen/Pelvis W IV Cont ONLY MR#: [id number] Acct: [id number] Name: TIFFANIE VILLAFANA Rep #: [id number] : 1955 F 69 From: Daya Zimmerman MD PCP: CLEMENCIA MILLER Status: REG ER Study:Abdomen/Pelvis W IV Cont ONLY Date of E xam: 07/29/24 Exam# [id number] Ordering Dr: Penelope Mcdonald MD EXAM: CT Abdomen and Pelvis With Intravenous Contrast CLINICAL INDICATION: HYPOTENSION, LOW BACK PAIN TECHNIQUE: Axial computed tomography images of the abdomen and pelvis with intravenous contrast. This CT exam was performed using one or more of the following dose reduction techniques: automated exposure control, adjustment of the mA and/or kV according to patient size, and/or use of iterative reconstruction technique. COMPARISON: No relevant prior studies available. FINDINGS: LUNG BASES: Unremarkable. No mass. No consolidation. MEDIASTINUM: Small esophageal hiatal hernia. ABDOMEN: LIVER: Hepatomegaly with fatty infiltration. GALLBLADDER AND BILE DUCTS: Gallbladder is surgically absent. No ductal dilation. PANCREAS: Unremarkable. No mass. No ductal dilation. SPLEEN: Unremarkable. No splenomegaly. ADRENALS: Unremarkable. No mass. KIDNEYS AND URETERS: Unremarkable. No solid mass. No hydronephrosis. STOMACH AND BOWEL: Small anterior ventral hernia of the lower mid abdomen containing fat. No bowel obstruction. Fecal retention in the colon consistent with constipation. No mucosal thickening. PELVIS: APPENDIX: No findings to suggest acute appendicitis. BLADDER: Unremarkable. No mass. REPRODUCTIVE: Unremarkable as visualized. ABDOMEN and PELVIS: INTRAPERITONEAL SPACE: Unremarkable. No free air. No significant fluid collection. BONES/JOINTS: No acute fracture. No dislocation. SOFT TISSUES: See above. VASCULATURE: Scattered calcified atherosclerotic disease of aorta. No abdominal aortic aneurysm. LYMPH NODES: Unremarkable. No enlarged lymph nodes. CT/Abdomen/Pelvis W IV Cont ONLY IMPRESSION: 1. Small anterior ventral hernia of the lower mid abdomen containing fat. No bowel obstruction. 2. Small esophageal hiatal hernia. 3. Hepatomegaly with fatty infiltration. 4. Fecal retention in the colon consistent with constipation. Reading Location: [facility] CC: Dr. Luis Mcdonald MD; CLEMENCIA MILLER ~ 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: Signed [facility]05-30-2025 Radiology Diagnostic study note [facility] Imaging Services [address] [place] [address] [id number] Chest 1 View (Portable) MR#: [id number] Acct: [id number] Name: TIFFANIE VILLAFANA Rep #: [id number] : 1955 F 69 From: Daya Zimmerman MD PCP: CLEMENCIA MILLER Status: REG ER Study:Chest 1 View (Portable) Date of Exam: 07/29/24 Exam# [id number] Ordering Dr: Penelope Mcdonald MD EXAM: XR Chest, 1 View CLINICAL INDICATION: WEAKNESS TECHNIQUE: Frontal view of the chest. COMPARISON: No relevant prior studies available. FINDINGS: LUNGS AND PLEURAL SPACES: Unremarkable. No consolidation. No pneumothorax. HEART: Unremarkable. No cardiomegaly. MEDIASTINUM: Unremarkable. Normal mediastinal contour. BONES/JOINTS: Unremarkable. No acute fracture. RAD/Chest 1 View (Portable) IMPRESSION: No acute cardiopulmonary process. Reading Location: [facility] CC: Dr. Luis Mcdonald MD; CLEMENCIA MILLER ~ 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: Signed [facility]01-15-2025 Telephone encounter Note* Telephone Encounter - Anna Lamb MA - 03/16/2024 10:31 AM EST KEO approved: Authorized from February 15, 2024 to March 16, 2025 Information received electronically from payer Called exact [facility] and let them know PA was approved Anna Lamb MA [facility]01-15-2025 Miscellaneous Notes* Telephone Encounter - Anna Lamb MA - 03/16/2024 10:31 AM EST KEO approved: Authorized from February 15, 2024 to March 16, 2025 Information received electronically from payer Called exact [facility] and let them know PA was approved Anna Lamb MA * Telephone Encounter - Anna Lamb MA - 03/16/2024 10:23 AM EST PA submitted electronically Anna Lamb MA * Telephone Encounter - Linsey Denis APRN.CNP - 03/16/2024 9:24 AM EST She was switched to Tresiba by clinical pharmacist in 2019: 1. Type 2 diabetes mellitus with diabetic neuropathy, with long-term current use of insulin ([facility]) -ICD9: 250.60, 357.2, V58.67, ICD10: E11.40, Z79.4 (primary diagnosis) A1c goal < 7%; not at goal (last A1c 7.5%); SMBG mostly at goal on current regimen; however pt reports nighttime hypoglycemia resulting in pt self- decreasing insulin dose to half daily dose in fear of hypoglycemia. She also reports missed doses of evening Lantus on occasion. Pt would benefit from switching Lantus to Tresiba as it is a once daily ultra-long acting insulin associated with less hypoglycemia Can we do a prior authorization? Linsey Denis APRN.SHAQUILLE * Telephone Encounter - Cornelia Penaloza RN - 03/15/2024 1:30 PM EST [facility] phoned to let pcp know Tresiba is not covered on patient's insurance. It is noton formulary. Asking if provider can send alternative. [facility] Telephone encounter Note * Telephone Encounter - Anna Lamb MA - 03/16/2024 10:23 AM EST PA submitted electronically Anna Lamb MA [facility]01-15-2025 Telephone encounter Note* Telephone Encounter - Linsey Denis APRN.CNP - 03/16/2024 9:24 AM EST She was switched to Tresiba by clinical pharmacist in 2020: 1. Type 2 diabetes mellitus with diabetic neuropathy, with long-term current use of insulin ([facility]) -ICD9: 250.60, 357.2, V58.67, ICD10: E11.40, Z79.4 (primary diagnosis) A1c goal < 7%; not at goal (last A1c 7.5%); SMBG mostly at goal on current regimen; however pt reports nighttime hypoglycemia resulting in pt self- decreasing insulin dose to half daily dose in fear of hypoglycemia. She also reports missed doses of evening Lantus on occasion. Pt would benefit from switching Lantus to Tresiba as it is a once daily ultra-long acting insulin associated with less hypoglycemia Can we do a prior authorization? Linsey Denis APRN.[place] [facility] Work Phone: [phone]) 439-861901-14-2025 Telephone encounter Note* Telephone Encounter - Cornelia Penaloza RN - 03/15/2024 1:30 PM EST [facility] phoned to let pcp know Tresiba is not covered on patient's insurance. It is noton formulary. Asking if provider can send alternative. [facility]01-03[facility]25 Telephone encounter Note* Telephone Encounter - Sagrario Perez MD - 03/04/2024 1:58 AM EST The following approved medication requests have been transmitted electronically. Requested Prescriptions Signed Prescriptions Disp Refills oxybutynin ER (DITROPAN XL) 15 mg 24 hr Extended Rel Tab 180 tablet 3 Sig: Take 1 tablet by mouth two times a day. Authorizing Provider: SAGRARIO PEREZ MD [facility]01-03-2025 Miscellaneous Notes* Telephone Encounter - Sagrario Perez MD - 03/04/2024 1:58 AM EST The following approved medication requests have been transmitted electronically. Requested Prescriptions Signed Prescriptions Disp Refills oxybutynin ER (DITROPAN XL) 15 mg 24 hr Extended Rel Tab 180 tablet 3 Sig: Take 1 tablet by mouth two times a day. Authorizing Provider: SAGRARIO PEREZ MD * Telephone Encounter - Krystle Brown RN - 03/03/2024 10:43 AM EST Patient returns call and reports that she would like oxybutynin to be sent to [facility] as requested. Pended. Krystle Brown RN * Telephone Encounter - Cornelia Penaloza RN - 03/03/2024 10:24 AM EST [facility] requested refill on oxybutynin ER 15 mg. Left vm for pt to return call to nurse. When pt returns call - ask if she wants this Rx sent to [facility] since last Rx was sent to [facility]. Pt has a lot of pharmacies listed on her preferred pharmacy list. documented in this encounterMem[facility]01-02-[facility]25 Telephone encounter Note * Telephone Encounter - Krystle Brown RN - 03/03/2024 10:43 AM EST Patient returns call and reports that she would like oxybutynin to be sent to [facility] as requested. Pended. Krystle Brown RN [facility]01-02-2025 Telephone encounter Note* Telephone Encounter - Cornelia Penaloza RN - 03/03/2024 10:24 AM EST [facility] requested refill on oxybutynin ER 15 mg. Left vm for pt to return call to nurse. When pt returns call - ask if she wants this Rx sent to [facility] since last Rx was sent to [facility]. Pt has a lot of pharmacies listed on her preferred pharmacy list. [facility]12-04-2024 NoteHNO ID: [id number] Author: AKASH JUAN MA Service: ? Author Type: Assistant Clinical Director Type: Progress Notes Filed: 02/03/2024 09:41 Note Text: POPULATION HEALTH NAVIGATION OUTREACH Action/I Patient states she has had home care since Apr. Reason for Outreach Care Gap/HCC or Scheduling Wellness Visits Care Gaps due: Medicare Annual Wellness Visit Colorectal Cancer Screening HBA1C Flu Vaccine Patient Contacted: Patient in other facility or Active Cancer Treatment - End Outreach Navigation Signature: Akash Juan MA February 03, 2024 9:38 [facility]12-04-2024 History of Present illness Narrative* Akash Juan MA - 02/03/2024 9:37 AM EST POPULATION HEALTH NAVIGATION OUTREACH Action/FYI Patient states she has had home care since Apr. Reason for Outreach Care Gap/HCC or Scheduling Wellness Visits Care Gaps due: Medicare Annual Wellness Visit Colorectal Cancer Screening HBA1C Flu Vaccine Patient Contacted: Patient in other facility or Active Cancer Treatment - End Outreach Navigation Signature: Akash EstradaRAFAEL zimmerman February 03, 2024 9:38 AM documented in this encounterMem[facility]12-04-2024 NotePatient Outreach (NETNAV) TIFFANIE VILLAFANA ([id number]) 1955 F Date Time Provider Department 02/03/24 AKASH JUAN LORNA During your visit today, we recorded the following information about you: Akash Juan MA 02/03/2024 9:41 AM Signed POPULATION HEALTH NAVIGATION OUTREACH Action/FYI Patient states she has had home care since Apr. Reason for Outreach Care Gap/HCC or Scheduling Wellness Visits Care Gaps due: Medicare Annual Wellness Visit Colorectal Cancer Screening HBA1C Flu Vaccine Patient Contacted: Patient in other facility or Active Cancer Treatment - End Outreach Navigation Signature: Akashlaly Juan MA February 03, 2024 9:38 AM Allergies As of Date: 02/03/2024 Noted Allergy Reaction PINEAPPLE 08/29/2020 7 - Swelling Comments: was not ripe ADHESIVE TAPE (ROSINS) 11/24/2005 2 - Rash ADVAIR DISKUS (FLUTICASONE PROPIO*11/05/2005 7 - Swelling ALTACE (RAMIPRIL) 11/05/2005 10 - Anaphylaxis ATROVENT (IPRATROPIUM BROMIDE) 11/05/2005 2 - Rash BIAXIN (CLARITHROMYCIN) 11/05/2005 1 - Mental Status Change Comments: Can take zithromax CARBIDOPA-LEVODOPA 03/10/2023 2 - Rash 7 - Swelling CARDIZEM (DILTIAZEM HCL) 11/05/2005 10 - Anaphylaxis [...] LORTAB (HYDROCODONE-ACETAMINOPHEN)11/05/2005 1 - Mental Status Change METHENAMINE 08/22/2022 2 - Rash 7 - Swelling 9 - Itching 10 - Anaphylaxis Comments: throat swelling MOBIC (MELOXICAM) 01/02/2011 14 - Other: See Comments Comments: Colt like something squeezing heart PROZAC (FLUOXETINE HCL) 05/13/2006 12 - Shortness of Breath Comments: sob,chest pains SEPTRA (SULFAMETHOXAZOLE-TRIMETHO*11/05/2005 8 - GI Upset SEROQUEL (QUETIAPINE FUMARATE) 11/05/2005 12 - Shortness of Breath TOPAMAX (TOPIRAMATE) 07/11/2013 14 - Other: See Comments Comments: gait instability and "felt stupid" VICTOZA (LIRAGLUTIDE) 10/18/2010 7 - Swelling Comments: throat swelling ZOCOR (SIMVASTATIN) 07/14/2008 7 - Swelling ZOLOFT (SERTRALINE HCL) 09/25/2006 5 - Intolerance Comments: Severe chest pain Already tried pravastatin and lovastatin and atorvastatin and had adverse effects with all ZONEGRAN (ZONISAMIDE) 11/05/2005 12 - Shortness of Breath Date Reviewed: 05/11/2023 Reviewed by: Faye Patrick MA - Fully Assessed Reason for Visit: Population Health Navigation Outreach [3910] Cmt: JAI SOTO Surge list 2023 Prescriptions as of 02/03/2024 - amLODIPine (NORVASC) 10 mg tablet Take 1 tablet by mouth once daily. - methIMAzole (TAPAZOLE) 10 mg tablet Take 15 mg by mouth once daily. Patient states that she is taking 10 mg plus 5mg - insulin degludec (TRESIBA FLEXTOUCH U-200) 200 unit/mL (3 mL) injection Inject 20 Units subcutaneously daily at bedtime. - ELIQUIS 5 mg tab(s) Take 1 tablet by mouth two times a day. - metoprolol tartrate, short acting, (LOPRESSOR) 25 mg tablet Take 1 tablet by mouth two times a day. - magnesium chloride [address] tablet Take 2 tablets by mouth once daily. - cholecalciferol (VITAMIN D3) 50 mcg (2,000 unit) tablet Take 1 tablet by mouth once daily. - oxybutynin ER (DITROPAN XL) 15 mg 24 hr Extended Rel Tab Take 1 tablet by mouth two times a day. - cyclobenzaprine (FLEXERIL) 10 mg tablet Take 1 tablet by mouth daily at bedtime. - insulin aspart U-100 (NOVOLOG FLEXPEN U-100 INSULIN) 100 unit/mL (3 mL) Inject 4 Units subcutaneously three times a day before meals. Will increase as needed up to 10 units per meal - amiodarone (PACERONE) 200 mg tablet Take 1 tablet by mouth once daily. - Sennosides (SENOKOT EXTRA STRENGTH) 17.2 mg tab Take 1 tablet by mouth two times a day. - nystatin (MYCOSTATIN) powder Apply 1 application to affected area two times a day. To diaper area - cloNIDine HCl (CATAPRES) 0.3 mg tablet Take 1 tablet by mouth two times a day. - flash glucose sensor (FREESTYLE MAHESH 2 SENSOR) kit Apply new sensor every fourteen (14) days to upper arm. - WALKER ROLLATOR SEAT WITH 6" WHEELS - RED Ultra-light with seat if possible, if not please give lightest possible rollator with a seat. Please send to [facility]. - omega-3 fatty acids 1,000 mg cap Take 4 capsules by mouth once daily. Patient reports she is taking 4,000 mg daily - mecobalamin, vitamin B12, (B12 ACTIVE) 1,000 mcg chew Take 1 tablet by mouth once daily. - phyton (more content not included)...[facility]10-04-2024 Telephone encounter Note* Telephone Encounter - Sophia Hodges RN - 12/04/2023 11:36 AM EDT The patient has been identified by name and date of : Yes Caregiver verified no other encounters exist for this prescription request: Yes Caregiver confirmed with patient/requestor that no other refills are due, in the near future, with this provider at this time: Yes The last office visit in the department: 04/28/2023 Does the patient have a future office visit with this provider/department: No Visit date not found Requested Prescriptions Pending Prescriptions Disp Refills amLODIPine (NORVASC) 10 mg tablet 90 tablet 3 Sig: Take 1 tablet by mouth once daily. Sophia Hodges RN December 04, 2023 11:39 AM [facility]10-04-2024 Miscellaneous Notes* Telephone Encounter - Sophia Hodges RN - 12/04/2023 11:36 AM EDT The patient has been identified by name and date of : Yes Caregiver verified no other encounters exist for this prescription request: Yes Caregiver confirmed with patient/requestor that no other refills are due, in the near future, with this provider at this time: Yes The last office visit in the department: 04/28/2023 Does the patient have a future office visit with this provider/department: No Visit date not found Requested Prescriptions Pending Prescriptions Disp Refills amLODIPine (NORVASC) 10 mg tablet 90 tablet 3 Sig: Take 1 tablet by mouth once daily. Sophia Hodges RN December 04, 2023 11:39 AM documented in this encounterMem[facility]10-[facility]-2024 NotePatient Outreach (INTMMN) TIFFANIE VILLAFANA ([id number]) 1955 F Date Time Provider Department 12/02/23 SAGRARIO PEREZ During your visit today, we recorded the following information about you: Allergies As of Date: 12/02/2023 Noted Allergy Reaction PINEAPPLE 08/29/2020 7 - Swelling Comments: was not ripe ADHESIVE TAPE (ROSINS) 11/24/2005 2 - Rash ADVAIR DISKUS (FLUTICASONE PROPIO*11/05/2005 7 - Swelling ALTACE (RAMIPRIL) 11/05/2005 10 - Anaphylaxis ATROVENT (IPRATROPIUM BROMIDE) 11/05/2005 2 - Rash BIAXIN (CLARITHROMYCIN) 11/05/2005 1 - Mental Status Change Comments: Can take zithromax CARBIDOPA-LEVODOPA 03/10/2023 2 - Rash 7 - Swelling CARDIZEM (DILTIAZEM HCL) 11/05/2005 10 - Anaphylaxis [...] LORTAB (HYDROCODONE-ACETAMINOPHEN)11/05/2005 1 - Mental Status Change METHENAMINE 08/22/2022 2 - Rash 7 - Swelling 9 - Itching 10 - Anaphylaxis Comments: throat swelling MOBIC (MELOXICAM) 01/02/2011 14 - Other: See Comments Comments: Colt like something squeezing heart PROZAC (FLUOXETINE HCL) 05/13/2006 12 - Shortness of Breath Comments: sob,chest pains SEPTRA (SULFAMETHOXAZOLE-TRIMETHO*11/05/2005 8 - GI Upset SEROQUEL (QUETIAPINE FUMARATE) 11/05/2005 12 - Shortness of Breath TOPAMAX (TOPIRAMATE) 07/11/2013 14 - Other: See Comments Comments: gait instability and "felt stupid" VICTOZA (LIRAGLUTIDE) 10/18/2010 7 - Swelling Comments: throat swelling ZOCOR (SIMVASTATIN) 07/14/2008 7 - Swelling ZOLOFT (SERTRALINE HCL) 09/25/2006 5 - Intolerance Comments: Severe chest pain Already tried pravastatin and lovastatin and atorvastatin and had adverse effects with all ZONEGRAN (ZONISAMIDE) 11/05/2005 12 - Shortness of Breath Date Reviewed: 05/11/2023 Reviewed by: Faye Patrick MA - Fully Assessed Visit Diagnosis:Encounter for screening mammogram for breast cancer [Z12.31] Order(s):[facility] SCREENING [facility] [[id number]] Order #: [id number] FUTURE Prescriptions as of 12/07/2023 - amLODIPine (NORVASC) 10 mg tablet Take 1 tablet by mouth once daily. - methIMAzole (TAPAZOLE) 10 mg tablet Take 15 mg by mouth once daily. Patient states that she is taking 10 mg plus 5mg - insulin degludec (TRESIBA FLEXTOUCH U-200) 200 unit/mL (3 mL) injection Inject 20 Units subcutaneously daily at bedtime. - ELIQUIS 5 mg tab(s) Take 1 tablet by mouth two times a day. - metoprolol tartrate, short acting, (LOPRESSOR) 25 mg tablet Take 1 tablet by mouth two times a day. - magnesium chloride [address] tablet Take 2 tablets by mouth once daily. - cholecalciferol (VITAMIN D3) 50 mcg (2,000 unit) tablet Take 1 tablet by mouth once daily. - oxybutynin ER (DITROPAN XL) 15 mg 24 hr Extended Rel Tab Take 1 tablet by mouth two times a day. - cyclobenzaprine (FLEXERIL) 10 mg tablet Take 1 tablet by mouth daily at bedtime. - insulin aspart U-100 (NOVOLOG FLEXPEN U-100 INSULIN) 100 unit/mL (3 mL) Inject 4 Units subcutaneously three times a day before meals. Will increase as needed up to 10 units per meal - amiodarone (PACERONE) 200 mg tablet Take 1 tablet by mouth once daily. - Sennosides (SENOKOT EXTRA STRENGTH) 17.2 mg tab Take 1 tablet by mouth two times a day. - nystatin (MYCOSTATIN) powder Apply 1 application to affected area two times a day. To diaper area - cloNIDine HCl (CATAPRES) 0.3 mg tablet Take 1 tablet by mouth two times a day. - flash glucose sensor (FREESTYLE MAHESH 2 SENSOR) kit Apply new sensor every fourteen (14) days to upper arm. - WALKER ROLLATOR SEAT WITH 6" WHEELS - RED Ultra-light with seat if possible, if not please give lightest possible rollator with a seat. Please send to [facility]. - omega-3 fatty acids 1,000 mg cap Take 4 capsules by mouth once daily. Patient reports she is taking 4,000 mg daily - mecobalamin, vitamin B12, (B12 ACTIVE) 1,000 [...] lancet pen if does not come with (more content not included)...[facility]08-29-[facility] NotePatient Outreach (INTMMN) TIFFANIE VILLAFANA ([id number]) 1955 F Date Time Provider Department 10/29/23 TALAMPAS, SAGRARIO D INTMMN During your visit today, we recorded the following information about you: Allergies As of Date: 10/29/2023 Noted Allergy Reaction PINEAPPLE 08/29/2020 7 - Swelling Comments: was not ripe ADHESIVE TAPE (ROSINS) 11/24/2005 2 - Rash ADVAIR DISKUS (FLUTICASONE PROPIO*11/05/2005 7 - Swelling ALTACE (RAMIPRIL) 11/05/2005 10 - Anaphylaxis ATROVENT (IPRATROPIUM BROMIDE) 11/05/2005 2 - Rash BIAXIN (CLARITHROMYCIN) 11/05/2005 1 - Mental Status Change Comments: Can take zithromax CARBIDOPA-LEVODOPA 03/10/2023 2 - Rash 7 - Swelling CARDIZEM (DILTIAZEM HCL) 11/05/2005 10 - Anaphylaxis [...] LORTAB (HYDROCODONE-ACETAMINOPHEN)11/05/2005 1 - Mental Status Change METHENAMINE 08/22/2022 2 - Rash 7 - Swelling 9 - Itching 10 - Anaphylaxis Comments: throat swelling MOBIC (MELOXICAM) 01/02/2011 14 - Other: See Comments Comments: Colt like something squeezing heart PROZAC (FLUOXETINE HCL) 05/13/2006 12 - Shortness of Breath Comments: sob,chest pains SEPTRA (SULFAMETHOXAZOLE-TRIMETHO*11/05/2005 8 - GI Upset SEROQUEL (QUETIAPINE FUMARATE) 11/05/2005 12 - Shortness of Breath TOPAMAX (TOPIRAMATE) 07/11/2013 14 - Other: See Comments Comments: gait instability and "felt stupid" VICTOZA (LIRAGLUTIDE) 10/18/2010 7 - Swelling Comments: throat swelling ZOCOR (SIMVASTATIN) 07/14/2008 7 - Swelling ZOLOFT (SERTRALINE HCL) 09/25/2006 5 - Intolerance Comments: Severe chest pain Already tried pravastatin and lovastatin and atorvastatin and had adverse effects with all ZONEGRAN (ZONISAMIDE) 11/05/2005 12 - Shortness of Breath Date Reviewed: 05/11/2023 Reviewed by: Faye Patrick MA - Fully Assessed Visit Diagnoses:Screening for osteoporosis [Z13.820] Asymptomatic menopause [Z78.0] Order(s):DXA-AXIAL SKELETON [[id number]] Order #: [id number] FUTURE BD DXA TRABECULAR BONE SCORE (TBS) [[id number]] Order #: [id number] FUTURE Prescriptions as of 11/02/2023 - methIMAzole (TAPAZOLE) 10 mg tablet Take 15 mg by mouth once daily. Patient states that she is taking 10 mg plus 5mg - insulin degludec (TRESIBA FLEXTOUCH U-200) 200 unit/mL (3 mL) injection Inject 20 Units subcutaneously daily at bedtime. - ELIQUIS 5 mg tab(s) Take 1 tablet by mouth two times a day. - metoprolol tartrate, short acting, (LOPRESSOR) 25 mg tablet Take 1 tablet by mouth two times a day. - magnesium chloride [address] tablet Take 2 tablets by mouth once daily. - cholecalciferol (VITAMIN D3) 50 mcg (2,000 unit) tablet Take 1 tablet by mouth once daily. - oxybutynin ER (DITROPAN XL) 15 mg 24 hr Extended Rel Tab Take 1 tablet by mouth two times a day. - cyclobenzaprine (FLEXERIL) 10 mg tablet Take 1 tablet by mouth daily at bedtime. - insulin aspart U-100 (NOVOLOG FLEXPEN U-100 INSULIN) 100 unit/mL (3 mL) Inject 4 Units subcutaneously three times a day before meals. Will increase as needed up to 10 units per meal - amiodarone (PACERONE) 200 mg tablet Take 1 tablet by mouth once daily. - Sennosides (SENOKOT EXTRA STRENGTH) 17.2 mg tab Take 1 tablet by mouth two times a day. - nystatin (MYCOSTATIN) powder Apply 1 application to affected area two times a day. To diaper area - cloNIDine HCl (CATAPRES) 0.3 mg tablet Take 1 tablet by mouth two times a day. - amLODIPine (NORVASC) 10 mg tablet Take 1 tablet by mouth once daily. - flash glucose sensor (FREESTYLE MAHESH 2 SENSOR) kit Apply new sensor every fourteen (14) days to upper arm. - WALKER ROLLATOR SEAT WITH 6" WHEELS - RED Ultra-light with seat if possible, if not please give lightest possible rollator with a seat. Please send to [facility]. - omega-3 fatty acids 1,000 mg cap Take 4 capsules by mouth once daily. Patient reports she is taking 4,000 mg daily - mecobalamin, vitamin B12, (B12 ACTIVE) 1,000 [...] as needed for symptoms of high or l (more content not included)...[facility]04-05-2024 Miscellaneous Notes * Telephone Encounter - Jolly Martinez LPN - 06/05/2023 10:53 AM EDT Phone call placed patient advised last seen by Wayne 08/14/2022 with a referral placed to movement disorder clinic for follow up. Patient was scheduled with [facility], appointment cancelled . Patient verbalized understanding, agreed with plan of care, scheduling phone number given. Jolly Martinez LPN documented in this encounterMem[facility]03-[facility] Instructions* Patient Instructions* Marianela Mooney - 05/11/2023 1:13 PM EDT Can use hammertoe pad for right 4th toe Do not overtighten Can remove at night documented in this encounterMemorial [facility]03-11-2024 NoteHNO ID: [id number] Author: MARIANELA MOONEY, ? Service: ? Author Type: Physician Type: Progress Notes Filed: 05/11/2023 13:16 Note Text: FOLLOW UP PODIATRIC OFFICE VISIT Chief Complaint: This 67 year old who presents for follow up:callus of right 2nd toe Patient presents to clinic for follow-up callus of right 2nd toe. She states the callus since being debrided has not returned Her biggest issue for coming today are hammertoes of right foot She feels the toe deformity is progressively getting worse PAIN EVALUATION No data found in the last 1 encounters. Hemoglobin A1C Date Value Ref Range Status 12/26/2022 6.2 (H) 4.3 - 5.6 % Final Comment: [place] [employer] guidelines indicate that patients with HgbA1c in the range 5.7-6.4% are at increased risk for development of diabetes, and intervention by lifestyle modification may be beneficial. HgbA1c greater or equal to 6.5% is considered diagnostic of diabetes. PCP: Sagrario Perez MD PAST MEDICAL HISTORY Diagnosis Date Acute [...] Sig methIMAzole (TAPAZOLE) 10 mg tablet Take 15 mg by mouth once daily. Patient states that she is taking 10 mg plus 5mg insulin degludec (TRESIBA FLEXTOUCH U-200) 200 unit/mL [...] needed up to 10 units per meal Sennosides (SENOKOT EXTRA STRENGTH) 17.2 mg tab Take 1 tablet by mouth two times a day. nystatin (MYCOSTATIN) powder Apply 1 application to affected area two times a day. To diaper area cloNIDine HCl (CATAPRES) 0.3 mg tablet Take 1 tablet by mouth two times a day. amLODIPine (NORVASC) 10 mg tablet Take 1 tablet by mouth once daily. flash glucose sensor (FREESTYLE MAHESH 2 SENSOR) kit Apply new sensor every fourteen (14) days to upper arm. WALKER ROLLATOR SEAT WITH 6" WHEELS - RED Ultra-light with seat if possible, if not please give lightest possible rollator with a seat. Please send to [facility]. omega-3 fatty acids 1,000 mg cap Take [...] daily. Dx: Other DM Code E11.40. Insulin [place], Disposable, (BD INSULIN PEN NEEDLE UF) 29 gauge x 1/2" ndle USE TO INJECT TWICE DAILY amiodarone (PACERONE) 200 mg tablet Take 1 tablet by mouth once daily. (Patient not taking: Reported on 05/11/2023) mecobalamin, vitamin B12, (B12 ACTIVE) 1,000 mcg chew Take 1 tablet by mouth once daily. (Patient not taking: Reported on 04/28/2023) Aspirin 81 mg tab Take 1 tablet by mouth once daily. Take with food. (Patient not taking: Reported on 04/28/2023) No current facility-administered medications for this visit. ALLERGIES Allergen Reactions Pi (more content not included)...[facility]03-11-2024 History of Present illness Narrative* Marianela Mooney - 05/11/2023 1:09 PM EDT FOLLOW UP PODIATRIC OFFICE VISIT Chief Complaint: This 67 year old who presents for follow up:callus of right 2nd toe Patient presents to clinic for follow-up callus of right 2nd toe. She states the callus since beingdebrided has not returned Her biggest issue for coming today are hammertoes of right foot She feels the toe deformity is progressively getting worse PAIN EVALUATION No data found in the last 1 encounters. Hemoglobin A1C Date Value Ref Range Status 12/26/2022 6.2 (H) 4.3 - 5.6 % Final Comment: [place] [employer] guidelines indicate that patients with HgbA1c in the range 5.7-6.4% are at increased risk for development of diabetes, and intervention by lifestyle modification may be beneficial. HgbA1c greater or equal to 6.5% is considered diagnostic of diabetes. PCP: Sagrario Perez MD PAST MEDICAL HISTORY Diagnosis Date Acute [...] Sig methIMAzole (TAPAZOLE) 10 mg tablet Take 15 mg by mouth once daily. Patient states that she is taking 10 mg plus 5mg insulin degludec (TRESIBA FLEXTOUCH U-200) 200 unit/mL [...] needed up to 10 units per meal Sennosides (SENOKOT EXTRA STRENGTH) 17.2 mg tab Take 1 tablet by mouth two times a day. nystatin (MYCOSTATIN) powder Apply 1 application to affected area two times a day. To diaper area cloNIDine HCl (CATAPRES) 0.3 mg tablet Take 1 tablet by mouth two times a day. amLODIPine (NORVASC) 10 mg tablet Take 1 tablet by mouth once daily. flash glucose sensor (FREESTYLE MAHESH 2 SENSOR) kit Apply new sensor every fourteen (14) days to upper arm. WALKER ROLLATOR SEAT WITH 6" WHEELS - RED Ultra-light with seat if possible, if not please give lightest possible rollator with a seat. Please send to [facility]. omega-3 fatty acids 1,000 mg cap Take 4 capsules by mouth once daily. Patient reports she is taking4,000 mg daily phytonadione, vit K1, (VITAMIN K) [...] daily. Dx: Other DM Code E11.40. Insulin [place], Disposable, (BD INSULIN PEN NEEDLE UF) 29 gauge x 1/2" ndle USE TO INJECT TWICE DAILY amiodarone (PACERONE) 200 mg tablet Take 1 tablet by mouth once daily. (Patient not taking: Reported on 05/11/2023) mecobalamin, vitamin B12, (B12 ACTIVE) 1,000 mcg chew Take 1 tablet by mouth once daily. (Patient not taking: Reported on 04/28/2023) Aspirin 81 mg tab Take 1 tablet [...] throat swelling Mobic [Meloxicam] Other: See Comments Colt like something squeezing heart Prozac [Fluoxetine * Shortness of Breath sob,chest pains Septra [Sulfamethox* GI Upset Seroquel [Quetiapin* Shortness of Breath Topamax [Topiramate] Other: See Comments gait instability and "felt stupid" Victoza [Liraglutid* Swelling throat swelling Zocor [Simvastatin] [...] OBJECTIVE: Constitutional: Pt is a well developed 67 year old female who is alert, oriented, cooperative and in no apparent distress. Eyes: Following during examination. No redness or drainage. Respiratory: RR normal and nonlabored. Even breathing. No evidence of distress. Psychology: Patient is engaged during conversation. Normal affect and mood. Does not appear depressed or anxious. NVSI unchanged from previous visit. Dermatological: Nails 1-5 b/l are normal. Webspaces clean and dry 1-4 b/l. Skin appears well hydrated and supple. good color, texture, turgor. No open lesions present. Callus present to left 5th metatarsal. No callus to right 2nd toe. Small callus to left 5th metatarsal. No ulceration. Musculoskeletal/Orthopaedic: Patient has no pain to palpation of b/l feet Flexible hammertoe is noted to right 4th toe ASSESSMENT: (M20.41) Hammer toe of right foot (primary encounter diagnosis) callus PLAN: Discussed hammertoe of right 4th toe. This is flexible in appearance. Discussed oiptions not limited to hammertoe crest padding vs surgical options. If she were interested in surgery, could consider tenotomy. She is not interested in tenotomy Hammertoe crest pad dispensed. Instructed her to not apply too tightly and can take off at night Callus of left 5th metatarsal reduced with dremmel F/u prn Marianela Mooney DPM documented [facility] Discharge summary Author Collins Zimmerman [facility] May 08, 2023 9:01pm Note Date/Time May 08, 2023 7:36 pm [facility] Medical Records Department [address] [place] [address] Emergency Department Summary 05/08/23 MR#: [id number] Acct: [id number] Name: TIFFANIE VILLAFANA Rep #:[id number] : 1955 67 From: Collins Guido PCP: Dr. Clemencia Miller MD Status:REG E R Location: ED HPI History of Present Illness Chief Complaint: Allergic Reaction Informant: patient and family Narrative Narrative: Presents concern allergic reaction to pineapple and apples that were cooked. She states has an allergy to raw pineapples and apples. She ate this 2 hours ago that was cooked. She felt some throat swelling shortly afterwards. She does not take any medications. She called her PCP was told to go to the ED. Reports currently symptoms are slightly subsiding. Multiple allergies. Is tolerated prednisone in the past. She is a diabetic. Glucose in the 100s today. Prior similar symptoms: Yes PFSH [facility] Medical History Anxiety Asthma Depression Diabetes History of left heart catheterization Hyperlipidemia Hypertension Non-smoker Thyrotoxicosis due to Graves' disease Tremor Home Medications amlodipine 10 mg tablet 1 tab PO DAILY BLOOD PRESSURE 05/27/17 [History Last Taken 04/03/23] clonidine HCl 0.3 mg tablet 1 tab PO BID BLOOD PRESSURE 05/27/17 [History Last Taken 04/03/23] cyclobenzaprine 10 mg tablet 10 mg PO QHS PRN LEG CRAMPS 05/27/17 [History Last Taken 04/02/23] insulin degludec 200 unit/mL (3 mL) subcutaneous pen (Tresiba FlexTouch U-200 insulin) 56 unit subcut QHS DIABETES 09/21/20 [History Last Taken Unknown] acetaminophen 500 mg tablet 1,000 mg (2 x 500 mg) PO Q6H PRN PRN Pain Score 1- 10#0 tabs 04/21/23 [Rx Last Taken Unknown] magnesium chloride 64 mg (magnesium chloride) tablet,delayed release (Mag 64) 128 mg (2 x 64 mg) PO DAILY 30 days #60 tabs 04/21/23 [Rx Last Taken Unknown] oxybutynin chloride 15 mg tablet,extended release 24 hr 15 mg PO BID 05/01/23 [History Last Taken Unknown] apixaban 5 mg tablet (Eliquis) 5 mg PO BID blood thinner #180 tabs 05/04/23 [Rx Last Taken Unknown] metoprolol tartrate 25 mg tablet 25 mg PO BID heart/pulse #180 tabs 05/04/23 [Rx Last Taken Unknown] famotidine 20 mg tablet 20 mg PO BID #10 TABLETS 05/08/23 [Rx Last Taken Unknown] methimazole 10 mg tablet 15 mg (1.5 x 10 mg) PO DAILY thyroid 30 days #45 tabs 05/08/23 [Rx Last Taken Unknown] prednisone 20 mg tablet 40 mg (2 x 20 mg) PO DAILY #8 TABLETS 05/08/23 [Rx Last Taken Unknown] Allergy/AdvReac Type Severity Reaction Status Date / Time adhesive tape Allergy Other Verified 05/08/23 19:19 apple Allergy Swelling Verified 05/08/23 19:19 cephalexin monohydrate Allergy Other Verified 05/08/23 19:19 [From Keflex] ciprofloxacin [From Cipro] Allergy Hives Verified 05/08/23 19:19 ciprofloxacin HCl Allergy Hives Verified 05/08/23 19:19 [From Cipro] citalopram hydrobromide Allergy Unknown Verified 05/08/23 19:19 [From Celexa] clarithromycin [From Biaxin] Allergy Unknown Verified 05/08/23 19:19 codeine Allergy Unknown Verified 05/08/23 19:19 diltiazem HCl [From Cardizem] Allergy Unknown Verified 05/08/23 19:19 fluoxetine HCl [From Prozac] Allergy Unknown Verified 05/08/23 19:19 fluticasone Allergy Swelling Verified 05/08/23 19:19 [From Advair Diskus] fluticasone propionate Allergy Other Verified 05/08/23 19:19 [From Advair Diskus] hydrochlorothiazide Allergy Unknown Verified 05/08/23 19:19 [From Hyzaar] ipratropium bromide Allergy Unknown Verified 05/08/23 19:19 [From Atrovent] labetalol Allergy Rash Verified 05/08/23 19:19 lamotrigine [From Lamictal] Allergy Unknown Verified 05/08/23 19:19 latex Allergy Unknown Verified 05/08/23 19:19 liraglutide [From Victoza] Allergy Unknown Verified 05/08/23 19:19 losartan potassium Allergy Unknown Verified 05/08/23 19:19 [From Hyzaar] meloxicam [From Mobic] Allergy Other Verified 05/08/23 19:19 nitrofurantoin Allergy Hives Verified 05/08/23 19:19 [From Macrobid] nitrofurantoin Allergy Hives Verified 05/08/23 19:19 macrocrystalline [From Macrobid] Penicillins Allergy Rash Verified 05/08/23 19:19 pineapple Allergy Other Verified 05/08/23 19:19 quetiapine fumarate Allergy Unknown Verified 05/08/23 19:19 [From Seroquel] salmeterol Allergy Swelling Verified 05/08/23 19:19 [From Advair Diskus] salmeterol xinafoate Allergy Other Verified 05/08/23 19:19 [From Advair Diskus] sertraline HCl [From Zoloft] Allergy Unknown Verified 05/08/23 19:19 simvastatin [From Zocor] Allergy Unknown Verified 05/08/23 19:19 topiramate [From Topamax] Allergy Unknown Verified 05/08/23 19:19 verapamil HCl Allergy Unknown Verified 05/08/23 19:19 [From Covera-HS] zonisamide [From Zonegran] Allergy Shortness Verified 05/08/23 19:19 of breath acetaminophen [From Lortab] AdvReac Nausea Verified 05/08/23 19:19 hydrocodone bitartrate AdvReac Nausea Verified 05/08/23 19:19 [From Lortab] ramipril [From Altace] AdvReac Laryngospas Verified 05/08/23 19:19 ms sulfamethoxazole AdvReac Unknown Verified 05/08/23 19:19 [From Septra] trimethoprim [From Septra] AdvReac Unknown Verified 05/08/23 19:19 Surgical History History of bladder repair surgery History of carpal tunnel release History of cholecystectomy History of hysterectomy Social History household members: none housing: apartment current occupational status: disabled current occupation: Patient is disabled due to Parkinson's disease Smoking Status: Never smoker alcohol intake: never substance use type: does not use ROS ROS ED Constitutional Constitutional ED: Denies chills, fever(s) or sweats Eyes Eyes: Denies change in vision ENT ENT ED: Reports other Details: Reports swelling in throat ; Denies dysphagia or sore throat Cardiovascular Cardiovascular: Denies chest pain, leg edema, palpitations or racing heartbeat Respiratory/Chest Respiratory/Chest: Denies cough, dyspnea or dyspnea on exertion Gastrointestinal Gastrointestinal: Denies abdominal pain, diarrhea, nausea or vomiting Genitourinary Genitourinary ED: Denies dysuria, hematuria or urinary frequency Musculoskeletal Musculoskeletal: Denies back pain, extremity pain or neck pain Integumentary Denies rash or wounds Neurologic Neurologic: Denies headache(s), paresthesias or weakness EXAM Physical Exam Const Vital Signs: 05/08/23 19:19 Temperature 97.3 F L Temperature Source Temporal Pulse Rate 65 Respiratory Rate 14 Blood Pressure 160/103 H Blood Pressure Mean 122 Pulse Ox 97 Oxygen Delivery Method Room Air Positive well nourished and well developed General Appearance ED: well developed and NAD HEENT Reports moist mucous membranes HEENT Narrative: No objective swelling of the tongue or lips. Airway patent. No stridor. normocephalic and atraumatic Eyes PERRL, EOMs intact bilaterally and conjunctivae normal General Eye ED: Yes normal appearance of both eyes Neck no lymphadenopathy and supple General: Negative for tenderness Chest Wall Chest: Negative for tenderness Resp normal respiratory effort and normal air movement Effort and Inspection: symmetric chest movement; Negative for respiratory distress Cardio regular rate, regular rhythm and no murmurs Peripheral Pulses: pulses 2+ throughout GI normal to inspection, nondistended, normoactive bowel sounds and non-tender Palpation: Negative for guarding or rebound tenderness present Back/Spine no CVA tenderness and no thoracic nor lumbar tenderness Extremity normal to inspection General Extremety ED: Negative for edema or tenderness General Extremity: Negative for edema Neuro oriented x3 and no sensory deficits noted Sensorium / Orientation: awake and alert Skin no rashes or lesions noted and no wounds Skin Narrative: No urticarial lesions. MDM MDM MDM Narrative Medical decision making narrative: Interventions / MDM: Differential diagnosis: Allergic reaction Diagnosis considered but do not suspect: N/A My EKG interpretation: N/A Imaging independently reviewed and interpreted by myself: N/A External documents reviewed: N/A Test considered but not ordered:N/A ED course: Vital stable nontoxic no objective swelling noted. Reports symptoms are slight subsiding. Placed on the monitor. Give oral Benadryl, prednisone, Pepcid. Will check blood glucose level. 2024: Blood glucose 200. Clinically starting to feel better. Will continue to monitor. 2099: Symptoms improved. She has Benadryl at home to use as needed. Will prescribe prednisone and Pepcid, she will monitor her blood glucose. Outpatientfollow-up with her doctor. All questions were answered. Re-evaluation: stable Disposition discussed with patient/family/significant other: Patient Case discussed with consulting clinician: N/A This note was generated with [email or web address] dictation software. It may contain incorrectwords, spelling, and punctuation that were not noted in checking the note beforesigning. Lab Data Attestation: I reviewed the patient's lab results. Labs: Laboratory Results - last 24 hr 05/08/23 19:54 POC Glucose 200 H Discharge Plan Triage Chief Complaint: Allergic Reaction ED Provider: Collins Zimmerman Dx/Rx/DC Orders Clinical Impression: Allergic reaction, Diabetes mellitus Instructions: ED General Allergic Reactions Prescriptions: New prednisone 20 mg tablet 40 mg PO DAILY Qty: 8 0RF Rx Instructions: Next dose 05/09/2023 famotidine [famotidine] 20 mg tablet 20 mg PO BID Qty: 10 0RF No Action metoprolol tartrate 25 mg tablet 25 mg PO BID Qty: 180 3RF Eliquis 5 mg tablet 5 mg PO BID Qty: 180 3RF oxybutynin chloride 15 mg tablet extended release 24hr 15 mg PO BID clonidine HCl 0.3 MG tablet 1 tab PO BID amlodipine 10 MG tablet 1 tab PO DAILY cyclobenzaprine 10 MG tablet 10 mg PO QHS PRN (Reason: LEG CRAMPS) insulin degludec [Tresiba FlexTouch U-200] 200 unit/mL (3 mL) Insulin Pen 56 unit SUBCUT QHS Patient Comments: 03/31 has not taken for 3 days d/t hypoglycemia/anorexia acetaminophen 500 mg Tablet 1,000 mg PO Q6H PRN PRN (Reason: Pain Score 1-10) Qty: 0 0RF Mag 64 64 mg Tablet,Delayed Release (Dr/Ec) 128 mg PO DAILY 30 Days Qty: 60 0RF methimazole 10 mg tablet 15 mg PO DAILY 30 Days Qty: 45 1RF Primary Care Provider: Clemencia Miller Referrals: Clemencia Miller MD [Primary Care Provider] - 1 Week Activity Restrictions/Additional Instructions: Allergic food reaction. Continue prednisone and Pepcid as prescribed. Use Benadryl 25 mg every 6 hours as needed. Follow-up with your doctor. Disposition Disposition: Home, Self Care What to do if you have Problems For any increased pain, shortness of breath, bleeding, nausea or vomiting, chestpain, or any unexpected problems, contact your Primary Care Provider. Call [facility] ([phone]) or report to the closest Emergency Room. Call 911 if necessary. 05/08/232100 <Electronically signed by Collins Guido> Cosigner Signature (if applicable): CC: Dr. Clemencia Miller MD ~ Signed [facility] Work Phone: 1(215) 649-483302-27-2024 NoteHNO ID: [id number] Author: SAGRARIO PEREZ MD Service: ? Author Type: Physician Type: Progress Notes Filed: 04/29/2023 19:18 Note Text: This note was created using OptiNoseriter. Subjective Tiffanie Villafana is a 67 year old female. Patient presents with: Hospital F/U SUBJECTIVE: Tiffanie Villafana is a 67 year old year old [...] for atrial flutter. Was at TCU at [facility] before went home. Noted that did not [...] transfer bench and needs raised toilet seat. Returns Supervisor helping. They are also helping with getting [...] to upper arm. WALKER ROLLATOR SEAT WITH 6" WHEELS - RED Ultra-light with seat if possible, if not please give lightest possible rollator with a seat. Please send to [facility]. omega-3 fatty acids 1,000 mg cap Take [...] does not come with the meter Insulin [place], Disposable, (BD INSULIN PEN NEEDLE UF) 29 gauge x 1/2" ndle USE TO INJECT TWICE DAILY insulin [...] 1 tablet by mouth (more content not included)...[facility]02-27-2024 History of Present illness Narrative* Sagrario Perez MD - 04/28/2023 12:21 PM EST This note was created using [email or web address]. Subjective Tiffanie Villafana is a 67 year old female. Patient presents with: Hospital F/U SUBJECTIVE: Tiffanie Villafana is a 67 year old year old lady here today for hospital month follow up appointment for review of medical conditions. Patient was admitted after having multiple falls at home. Developed persistent severe pain and was not able to get up out of bed. Had low back and hip pain with pain in her buttock and right knee.Shewas diagnosed with atrial flutter with RVR and hyperthyroidism. Started on methimazole as well as meds for atrial flutter. Was at TCU at [facility] before went home. Noted that did not [...] transfer bench and needs raised toilet seat. Returns Supervisor helping. They are also helping with getting [...] sure dose. States was going back and forthdiarrhea and constipation but Senokot helped bowels. Doing well on present regimen. Has follow up with cardiology and Dr. Chris Simmons for thyroid. 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 WALKER ROLLATOR SEAT WITH 6" WHEELS - RED Ultra-light with seat if possible, if not please give lightest possible rollator with a seat. Please send to [facility]. omega-3 fatty acids 1,000 mg cap Take 4 capsules by mouth once daily. Patient reports she is taking4,000 mg daily phytonadione, vit K1, (VITAMIN K) 100 mcg tablet Take 100 mcg by mouth once daily. Lancets lancets Check blood sugar 3 times daily and as needed for symptoms of high or low sugars DX: E11.40 Insulin:Yes. Please give lancet pen if does not come with the meter Insulin [place], Disposable, (BD INSULIN PEN NEEDLE UF) 29 gauge x 1/2" ndle USE TO INJECT TWICE DAILY insulin [...] long-term current use of insulin (HCC) E11.40 insulin degludec (TRESIBA FLEXTOUCH U-200) 200 unit/mL (3 mL) injection Z79.4 Getting high after meals. Add meal time insulin 3. Hyperthyroidism E05.90 Continue methimazole; has follow up with Dr. Chris Simmons ([facility] endocrinology). Clinically euthyroid 4. Atrial flutter with rapid ventricular response (HCC) I48.92 Doing well on Eliquis, amiodarone and metoprolol. Follow up with cardiology. Has enough meds to getto appointment 5. Fibromyalgia M79.7 cyclobenzaprine (FLEXERIL) 10 [...] the date of the service which included [id number] patient care, completing clinical documentation, obtaining and/or reviewing separately obtained history, performing a medically appropriate examination, counseling and educating the patient/family/caregiver, ordering medications, tests, or procedures, independently interpreting results (not separately reported), and communicating results to the patient/family/caregiver. Sagrario Perez MD documented in this [facility] Hospital Discharge instructions Additional Instructions Discharge home alone 04/23/2023, pending acceptance from [facility] agency with PT/OT/SN/IRENE/SW.[facility] Work Phone: 1(322) 620-716002-20-2024 Discharge summary Author Troy Sabino [facility] April 21, 2023 7:34pm Note Date/Time April 21, 2023 7:31pm [facility] Medical Records Department [address] [place] [address] Discharge Summary 04/21/231928 MR#: [id number] Acct: [id number] Name: TIFFANIE VILLAFANA Rep #:[id number] : 1955 67 From: Troy Gallo MD PCP: Dr. Sagrario Perez MD Status:AD M IN Location: [facility] TCU09-1 Providers Date of Admission: 04/03/23 Primary Care Physician: Dr. Sagrario Perez MD Reason For Visit: AFIB WITH RVR, DEBILITY, FALLS Diagnosis Discharge Diagnosis (1) Debility: Status: Acute Code(s): R53.81 - Other malaise (2) Atrial flutter: Status: Resolved Code(s): I48.92 - Unspecified atrial flutter (3) Multiple falls: Status: Acute Code(s): R29.6 - Repeated falls (4) Tremor: Status: Acute Code(s): R25.1 - Tremor, unspecified (5) Parkinson disease: Status: Acute Code(s): G20.A1 - Parkinson's disease without dyskinesia, without mention of fluctuations (6) HTN (hypertension): Status: Chronic Code(s): I10 - Essential (primary) hypertension Qualifiers: Hypertension type: essential hypertension Qualified Code(s): I10 - Essential (primary) hypertension (7) Leg cramps: Status: Acute Code(s): R25.2 - Cramp and spasm (8) Diabetes mellitus type II, controlled: Status: Acute Code(s): E11.9 - Type 2 diabetes mellitus without complications (9) Anxiety: Status: Acute Code(s): F41.9 - Anxiety disorder, unspecified (10) Overactive bladder: Status: Acute Code(s): N32.81 - Overactive bladder (11) Depression: Status: Acute Code(s): F32.9 - Major depressive disorder, single episode, unspecified (12) Asthma: Status: Chronic Code(s): J45.909 - Unspecified asthma, uncomplicated Plan 67 year old female with below past medical history hospitalized for falls, atrial flutter, hyperthyroidism, admitted to TCU with debility, here for rehabilitation, strengthening, prior to discharge home alone. * Debility - PT/OT. * Pain - Tylenol 1000mg q6 prn pain (1-10). * Bowel - senna/colace 1 tablet bid, Magnesium citrate 300ml daily prn. * Adult immunization - Administer pneumonia vaccine, covid vaccine, flu vaccine as appropriate. * DVT prophylaxis - on Eliquis. * Parkinson Disease - f/u Dr. Andrade at discharge. * Atrial Fibrillation - Metoprolol 25mg bid, Amiodarone 200mg bid thru 04/08/2023, then 200mg daily, Eliquis 5mg bid. * Hypertension - Metoprolol 25mg bid, Amlodipine 10mg daily, Clonidine 0.3mg bid. * Leg cramps - Flexeril 10mg qhs prn. * Allergic rhinitis/Allergic conjunctivitis/insomnia - Benadryl 25mg bid prn, Benadryl 50mg qhs prn. * Diabetes Mellitus II - Glargine 56 units daily. * Hyperthyroidism - Methimazole 40mg daily thru 04/05/2023, then 20mg daily, repeat TSH, Free T4, T3 04/16/2023. Medications at Discharge Home Medications amlodipine 10 mg tablet 1 tab PO DAILY BLOOD PRESSURE 05/27/17 clonidine HCl 0.3 mg tablet 1 tab PO BID BLOOD PRESSURE 05/27/17 cyclobenzaprine 10 mg tablet 10 mg PO QHS PRN LEG CRAMPS 05/27/17 insulin degludec 200 unit/mL (3 mL) subcutaneous pen (Tresiba FlexTouch U-200 insulin) 56 unit subcut QHS DIABETES 09/21/20 acetaminophen 500 mg tablet 1,000 mg (2 x 500 mg) PO Q6H PRN PRN Pain Score 1- 10#0 tabs 04/21/23 amiodarone 200 mg tablet 200 mg PO DAILY afib 30 days #30 tabs 04/21/23 apixaban 5 mg tablet (Eliquis) 5 mg PO BID blood thinner 30 days #60 tabs 04/21/23 magnesium chloride 64 mg (magnesium chloride) tablet,delayed release (Mag 64) 128 mg (2 x 64 mg) PO DAILY 30 days #60 tabs 04/21/23 methimazole 10 mg tablet 20 mg (2 x 10 mg) PO DAILY thyroid 30 days #60 tabs 04/21/23 metoprolol tartrate 25 mg tablet 25 mg PO BID heart/pulse 30 days #60 tabs 04/21/23 Hospital Course Operations None Procedures None Summary of Care Provided Minutes Spent on Discharge: 35 Hospital Course: 67 year old female with below past medical history hospitalized for falls, atrial flutter, hyperthyroidism, admitted to TCU with debility, here for rehabilitation, strengthening, prior to discharge home alone. Discharge home alone 04/23/2023, pending acceptance from [facility] agency with PT/OT/SN/IRENE/SW. Physical Exam Const alert General Appearance: cooperative HEENT normocephalic Eyes PERRL and EOMs intact bilaterally Neck supple, no JVD and no carotid bruits Resp normal respiratory effort, normal air movement and clear to auscultation bilaterally Cardio regular rate and regular rhythm GI normal to inspection, nondistended, normoactive bowel sounds, non-tender and non-distended Extremity normal capillary refill General Extremity: Negative for edema Skin no rashes or lesions noted General Skin Exam: no breakdown Psych affect normal Appearance: appropriate Weight / BMI Weight Weight: 101.015 kg Body Mass Index (BMI) 39.4 ABG / Lab / Microbiology Data 04/18/23 06:27 04/19/23 06:54 Laboratory: Laboratory Results - last 24 hr 04/21/23 01:32: POC Glucose 164 H 04/21/23 05:28: POC Glucose 148 H Microbiology: Microbiology 04/13/23 08:10 Nasal Secretion SARS-CoV-2 Antigen (Rapid) - Final 04/09/23 05:25 Nasal Secretion SARS-CoV-2 Antigen (Rapid) - Final 04/06/23 04:10 Nasal Secretion SARS-CoV-2 Antigen (Rapid) - Final D/C Instructions Discharge Diet: No restrictions Discharge Activity: Return to Normal Activity, May Shower and Use Walker Weight Bearing Status: Weight bearing as tolerated Call your doctor if you observe: Fever of 101 or Higher, Inability to urinate, Inability to have a bowel movement, Shortness of breath, Dizziness, Fainting spells, Swelling in the ankles, Chest pain and Uncontrolled pain Additional Instructions: Discharge home alone 04/23/2023, pending acceptance from [facility] agency with PT/OT/SN/IRENE/SW. Please Follow Up With: Chris Simmons MD When: As soon as possible. Meaningful Use Info Meaningful Use Diagnoses (Choose all that apply): None applicable Discharge Plan Admission Admit Date/Time: 04/03/23 12:01 Primary Reason for Your Visit: Debility. Attending Provider: Troy Gallo Chi Primary Care Provider: Sagrario Perez Instructions Additional Instructions / Restrictions: Discharge home alone 04/23/2023, pending acceptance from [facility] agency with PT/OT/SN/IRENE/SW. Discharge Orders/Prescriptions Prescriptions: New acetaminophen 500 mg Tablet 1,000 mg PO Q6H PRN PRN (Reason: Pain Score 1-10) Qty: 0 0RF Mag 64 64 mg Tablet,Delayed Release (Dr/Ec) 128 mg PO DAILY 30 Days Qty: 60 0RF Continued clonidine HCl 0.3 MG tablet 1 tab PO BID amlodipine 10 MG tablet 1 tab PO DAILY cyclobenzaprine 10 MG tablet 10 mg PO QHS PRN (Reason: LEG CRAMPS) insulin degludec [Tresiba FlexTouch U-200] 200 unit/mL (3 mL) Insulin Pen 56 unit SUBCUT QHS Patient Comments: 03/31 has not taken for 3 days d/t hypoglycemia/anorexia amiodarone 200 mg Tablet 200 mg PO DAILY 30 Days Qty: 30 0RF Rx Instructions: Start when BID amiodarone is completed methimazole 10 mg tablet 20 mg PO DAILY 30 Days Qty: 60 0RF metoprolol tartrate 25 mg Tablet 25 mg PO BID 30 Days Qty: 60 0RF Eliquis 5 mg Tablet 5 mg PO BID 30 Days Qty: 60 0RF Discontinued aspirin [Adult Low Dose Aspirin] 81 mg tablet,delayed release (DR/EC) 81 mg PO DAILY diphenhydramine HCl [Allergy (diphenhydramine)] 25 mg capsule 50 mg PO QHS diclofenac sodium 75 mg tablet,delayed release (DR/EC) 75 mg PO .COMPLEX Rx Instructions: 75 mg orally bid for 2 days, then none for 3 days; ibuprofen [IBU] 800 mg tablet 800 mg PO DAILY PRN (Reason: headache) amiodarone 200 mg Tablet 200 mg PO BID 5 Days Qty: 0 0RF methimazole 5 mg Tablet 40 mg PO DAILY 3 Days Qty: 24 0RF Referrals / Follow Up: Eusebia Andrade MD [Non-Staff -Ordering Privileges] - Sagrario Perez MD [Primary Care Provider] - 04/28/23 10:40 am Chris Simmons MD [Med Staff - Courtesy Staff] - (Need TSH, T3 & T4 drawn prior to visit) Marisol Gan PA [Med Staff - Adv Practice Prof] - 05/04/23 9:30 am Disposition Disposition (needs filled in before D/C Order can be placed): Home Health Service 04/21/231933 <Electronically signed by Troy Gallo MD> Cosigner Signature (if applicable): CC: Dr. Sagrario Perez MD; Dr. Troy Gallo MD~ Signed [facility] Work Phone: [phone] 135-913602-05-2024 Progress note Author Troy Gallo [facility] April 06, 2023 1:00pm Note Date/Time April 06, 2023 1 1:34am [facility] Medical Records Department [address] [place] [id number] Progress Note - Pharmacy 04/06/23 1130 MR#: [id number] Acct: [id number] Name: TIFFANIE VILLAFANA Rep #:[id number] : 1955 67 From: Camacho Wheeler PCP: Dr. Sagrario Perez MD Status:AD M IN [facility] Documented by User: Camacho Wheeler 04/06/23 11:47 TCU RX Drug Regimen Review Subjective/Objective Subjective/Objective: Subjective: TCU admission note. 67 year old female with below past medical history hospitalized for falls, atrial flutter, hyperthyroidism, admitted to [facility], here for rehabilitation, strengthening, prior to discharge home alone. Objective: Allergies adhesive tape Allergy (Verified 09/21/20 20:13) Other apple Allergy (Verified 04/02/23 10:17) Swelling RAW APPLES ONLY pt states she can have cooked apples/applesauce cephalexin monohydrate [From Keflex] Allergy (Verified 09/21/20 20:13) Other DIME SIZE SPOTS ON LEGS ciprofloxacin [From Cipro] Allergy (Verified 09/21/20 20:13) Hives ciprofloxacin HCl [From Cipro] Allergy (Verified 09/21/20 20:13) Hives citalopram hydrobromide [From Celexa] Allergy (Verified 09/21/20 20:13) Unknown clarithromycin [From Biaxin] Allergy (Verified 09/21/20 20:13) Unknown codeine Allergy (Verified 09/21/20 20:13) Unknown diltiazem HCl [From Cardizem] Allergy (Verified 09/21/20 20:13) Unknown fluoxetine HCl [From Prozac] Allergy (Verified 09/21/20 20:13) Unknown fluticasone [From Advair Diskus] Allergy (Verified 09/21/20 20:13) Swelling fluticasone propionate [From Advair Diskus] Allergy (Verified 09/21/20 20:13) Other hydrochlorothiazide [From Hyzaar] Allergy (Verified 09/21/20 20:13) Unknown ipratropium bromide [From Atrovent] Allergy (Verified 09/21/20 20:13) Unknown labetalol Allergy (Verified 09/21/20 20:13) Rash lamotrigine [From Lamictal] Allergy (Verified 09/21/20 20:13) Unknown latex Allergy (Verified 09/21/20 20:13) Unknown liraglutide [From Victoza] Allergy (Verified 09/21/20 20:13) Unknown losartan potassium [From Hyzaar] Allergy (Verified 09/21/20 20:13) Unknown meloxicam [From Mobic] Allergy (Verified 09/21/20 20:13) Other nitrofurantoin [From Macrobid] Allergy (Verified 11/18/19 13:15) Hives nitrofurantoin macrocrystalline [From Macrobid] Allergy (Verified 11/18/19 13:15) Hives Penicillins Allergy (Verified 09/21/20 20:13) Rash pineapple Allergy (Verified 04/02/23 10:17) Other *RAW PINEAPPLE* "mouth turns bloody and raw and then it goes through me bloody and raw" quetiapine fumarate [From Seroquel] Allergy (Verified 09/21/20 20:13) Unknown salmeterol [From Advair Diskus] Allergy (Verified 09/21/20 20:13) Swelling salmeterol xinafoate [From Advair Diskus] Allergy (Verified 09/21/20 20:13) Other sertraline HCl [From Zoloft] Allergy (Verified 09/21/20 20:13) Unknown simvastatin [From Zocor] Allergy (Verified 09/21/20 20:13) Unknown topiramate [From Topamax] Allergy (Verified 09/21/20 20:13) Unknown verapamil HCl [From Covera-HS] Allergy (Verified 09/21/20 20:13) Unknown zonisamide [From Zonegran] Allergy (Verified 09/21/20 20:13) Shortness of breath acetaminophen [From Lortab] Adverse Reaction (Verified 09/21/20 20:13) Nausea hydrocodone bitartrate [From Lortab] Adverse Reaction (Verified 09/21/20 20:13) Nausea ramipril [From Altace] Adverse Reaction (Verified 09/21/20 20:13) Laryngospasms sulfamethoxazole [From Septra] Adverse Reaction (Verified 09/21/20 20:13) Unknown trimethoprim [From Septra] Adverse Reaction (Verified 07/23/21 20:13) Unknown Current Medications Generic Name Dose Route Start Last Admin Trade Name Arminq PRN Reason Stop Dose Admin Acetaminophen 1,000 mg 04/03/23 13:49 04/05/23 23:26 Acetaminophen 500 Mg Tablet PO 1,000 mg Q6H PRN PRN Administration Pain Score 1-10 Amiodarone HCl 200 mg 04/03/23 22:00 04/06/23 10:01 Amiodarone 200 Mg Tablet PO 04/08/23 22:01 200 mg BID GIFTY Administration Amiodarone HCl 200 mg 04/09/23 10:00 Amiodarone 200 Mg Tablet PO DAILY GIFTY Amlodipine Besylate 10 mg 04/04/23 10:00 04/06/23 10:00 Amlodipine 10 Mg Tablet PO 10 mg DAILY GIFTY Administration Protocol Apixaban 5 mg 04/03/23 22:00 04/06/23 10:01 Apixaban 5 Mg Tablet PO 05/03/23 22:01 5 mg BID GIFTY Administration Clonidine 0.3 mg 04/03/23 22:00 04/06/23 10:00 Clonidine Hcl 0.1 Mg Tablet PO 0.3 mg BID GIFTY Administration Cyclobenzaprine HCl 10 mg 04/03/23 12:14 04/05/23 23:26 Cyclobenzaprine Hcl 10 Mg Tablet PO 10 mg QHS PRN Administration LEG CRAMPS Diphenhydramine HCl 50 mg 04/03/23 22:00 04/05/23 23:17 Diphenhydramine 25 Mg Capsule PO 50 mg QHS GIFTY Administration Diphenhydramine HCl 25 mg 04/03/23 13:27 04/04/23 16:38 Diphenhydramine 25 Mg Capsule PO 25 mg BID PRN PRN Administration NASAL CONGESTION Magnesium Citrate 300 ml 04/03/23 13:49 04/06/23 11:14 Magnesium Citrate 300 Ml PO 300 ml DAILY PRN Administration Constipation Methimazole 20 mg 04/06/23 10:00 04/06/23 10:00 Methimazole 5 Mg Tablet PO 20 mg DAILY GIFTY Administration Metoprolol Tartrate 25 mg 04/03/23 22:00 04/06/23 10:01 Metoprolol Tartrate 25 Mg Tablet PO 25 mg BID GIFTY Administration Protocol Nystatin 1 applic 04/03/23 22:00 04/06/23 10:01 Nystatin Powder 15gm Bottle TOPICAL 1 applic BID GIFTY Administration Protocol Senna/Docusate Sodium 1 tablet 04/03/23 22:00 04/06/23 10:00 Senna/Docusate Sodium 1 Tablet PO 1 tablet BID GIFTY Administration Sodium Chloride 10 - 40 ml 04/03/23 12:23 04/05/23 23:27 0.9% Saline Lock 10 Ml Syringe IV 10 ml UD PRN Administration SALINE FLUSH Tuberculin PPD 0.1 ml 04/11/23 10:00 Tuberculin,Purif.Prot.Deriv. 50 Tu/Ml Vial ID 04/11/23 10:01 X1 ONE Problem List (Updated 04/03/23 @ 13:[address] Troy Gallo MD) Depression (Acute) Overactive bladder (Acute) Anxiety (Acute) Diabetes mellitus type II, controlled (Acute) Leg cramps (Acute) Parkinson disease (Acute) Debility (Acute) Atrial flutter (Acute) Multiple falls (Acute) Tremor (Acute) Asthma (Chronic) HTN (hypertension) (Chronic) Vital Signs Temp Pulse Resp BP Pulse Ox O2 Del Method 96.8 F L 106 H 18 137/52 H 96 Room Air 04/05/23 11:23 04/06/23 10:01 04/05/23 08:57 04/05/23 23:20 04/05/23 08:57 04/05/23 10:00 Oxygen Delivery Method Room Air Weight: 102 kg Body Mass Index (BMI) 39.8 Sodium 143 mmol/L (136-145) 04/04/23 07:43 Potassium 3.7 mmol/L (3.5-5.1) 04/04/23 07:43 Chloride 113 mmol/L (98-107) H 04/04/23 07:43 Carbon Dioxide 27.0 mmol/L (21.0-32.0) 04/04/23 07:43 Anion Gap 3 (5-15) L 04/04/23 07:43 BUN 20 mg/dL (7-18) H 04/04/23 07:43 Creatinine 0.77 mg/dL (0.55-1.02) 04/04/23 07:43 Est GFR (MDRD) Af Amer 97 mL/min (>60) 04/04/23 07:43 Est GFR (MDRD) Non-Af 80 mL/min (>60) 04/04/23 07:43 BUN/Creatinine Ratio 26.1 RATIO (10-20) H 04/04/23 07:43 Glucose 137 mg/dL (74-106) H 04/04/23 07:43 Assessment/Plan: 1. Pain- acetaminophen 1000mg Q6H PRN (1-10).?Last PRN dose 04/05/23, pain was 2/10 at 23:26. Continue to monitor for pain, prn medication use. Monitor LFTs- WNL 03/22/23 2. Bowel- Senna-S 1 tablet BID, mag citrate 300ml daily prn. Monitor for bowel movement, constipation/diarrhea, prn medication use. Last bowel movement 04/03/23.No documented use of PRN medications at this time. 3. Atrial Fibrillation- Metoprolol Tartrate 25mg BID, Amiodarone 200mg BID thru 04/08/23- then 200mg QD thereafter, Eliquis 5mg BID. Monitor for signs of irregular heart beat. Monitor heart rate (recent range = 76-107 beats/min), thyroid levels (TSH = <0.01 uIU/mL on 03/31/23 with T4 = 2.60 ng/dL on 04/01/23)), pulmonary toxicity, LFTs, and for s/s of bleeding/excessive bruising. Monitor Hgb- last 11.4 g/dl on 04/04/23. 4. Hypertension- Metoprolol Tartrate 25mg BID, Amlodipine 10mg daily, Clonidine 0.3mg BID. Monitor BP- average SBP 135-159 mmHg/ average DBP 52-106 mmHg. Monitor for lower extremity edema and fatigue. No abrupt discontinuation with beta jarocho/clonidine combination therapy. The patient's systolic blood pressures have been elevated with only 1 reading below 130 mmHg recently, pleaseconsider increasing the patient's metoprolol tartrate to 50 mg PO BID. 5. Leg cramps: Leg Cramps- Cyclobenzaprine 10mg QHS prn. Monitor for symptoms ofleg cramping. Last PRN x1 04/04/23 and x2 (AM+ HS) 04/05/23. Monitor for increased fall risk, anticholinergic effects- (BEERs criteria) 6. Allergic Rhinitis/Allergic Conjunctivitis/ Insomnia- Benadryl 50mg QHS, Benadryl 25mg BID prn. x2 PRN doses 04/04/23 for patient reported itching. Medication effective- awake/alert following dose. Monitor for drowsiness, anticholinergic effects- BEERs. ? 7. Hyperthyroidism- Methimazole 20mg daily. Monitor TSH/Free T4/T3 on repeat labs 04/16/23. TSH <0.01 on 03/31/23. Monitor for s/s of hypo/hyperthyroidism. Last dose methimazole 40mg daily given 04/05/23. ? 8. Tinea Corporis- Nystatin Powder 1 application BID. Monitor for resolution of tinea corporis. Assessment/Plan for indications treated with psychotropic medications: NA Medical chart and medication regimen reviewed. The following medication irregularities or issues were identified. 1. Hypertension- Metoprolol Tartrate 25mg BID, Amlodipine 10mg daily, Clonidine 0.3mg BID. The patient's systolic blood pressures have been elevated with only 1reading below 130 mmHg recently, please consider increasing the patient's metoprolol tartrate to 50 mg PO BID. Date Date of Note:: 04/06/23 Documented by User: Dr. Troy Gallo MD 04/06/23 13:00 TCU RX Drug Regimen Review Provider Comments Provider responsibility Provider Comments to Recommendations by Pharmacy: Agree 04/06/23 1147 <Electronically signed by Camacho Wheeler> Camacho [email or web address] Signature (if applicable): 04/06/23 1300 <Electronically signed by Troy Gallo MD> CC: ~ Signed [facility] Work Phone: 1(298) 218-135602-02-2024 History and physical note Author Troy Gallo [facility] April 03, 2023 1:49pm Note Date/Time April 03, 2023 1 :35pm [facility] Medical Records Department [address] [place] [address] [place] [address] History & Physical Exam 04/03/23 1328 MR#: [id number] Acct: [id number] Name: TIFFANIE VILLAFANA Rep #:[id number] : 1955 67 From: Troy Gallo MD PCP: Dr. Sagrario Perez MD Status:AD M IN [facility] - General General Date of Admission: 04/03/23 Date of Service: 04/03/23 Chief Complaint: Here for rehabilitation. HPI Narrative 03/31/2023 TIFFANIE VILLAFANA, is a 67 Female who presents to [facility] ED with fall. Multiple falls past week, 2-3 times. Right low back pain hurt so bad, unable to get OOB. Right knee pain, no head injury. X-ray right hip, pelvis negative, X-ray right knee negative. Mild dehydration, UA negative. Pain relieved with medication, able to walk. Declined admission for placement. Prior to discharge, heart rate 140, Adenosine revealed possible atrial flutter. 1 liter IV fluid given. Concern for atrial flutter. 03/31/2023 Admit to Hospital. Heparin drip, Echo, Labs, Cardiology for atrial tachycardia. IV fluids for dehydration. PT/OT for falls. 03/31/2023 Echo EF 60%. Mild concentric LVH. 04/01/2023 No sleep 2/2 tremors. Heparin drip for atrial flutter. PT/OT for Parkinson Disease. Amiodarone IV, then PO, Metoprolol 25mg bid for Atrial Flutter. Hyperthyroidism, TSH suppressed, contributed to Atrial Flutter. 04/02/2023 Doing well, feels better after Methimazole. Methimazole 40mg daily x 5 days, then 20mg daily, repeat labs in 2 weeks for Hyperthyroidism. Trazodone for sleep. Hold Oxybutynin 2/2 falls. 04/02/2023 PAF on monitor. PT/OT for SNF. 04/03/2023 Start Eliquis for atrial fibrillation. 04/03/2023 Admit to TCU with debility, here for rehabilitation, strengthening, prior to discharge home alone. [facility] Medical History (Updated 04/03/23 @ 13:[address] Troy Gallo MD) Anxiety Asthma Depression Diabetes History of left heart catheterization Hyperlipidemia Hypertension Non-smoker Tremor Home Medications amlodipine 10 mg tablet 1 tab PO DAILY BLOOD PRESSURE 05/27/17 [History Last Taken 04/03/23] clonidine HCl 0.3 mg tablet 1 tab PO BID BLOOD PRESSURE 05/27/17 [History Last Taken 04/03/23] cyclobenzaprine 10 mg tablet 10 mg PO QHS PRN LEG CRAMPS 05/27/17 [History Last Taken 04/02/23] insulin degludec 200 unit/mL (3 mL) subcutaneous pen (Tresiba FlexTouch U-200 insulin) 56 unit subcut QHS DIABETES 09/21/20 [History Last Taken Unknown] aspirin 81 mg tablet,delayed release (Adult Low Dose Aspirin) 81 mg PO DAILY HEART HEALTH 03/31/23 [History Last Taken 04/03/23] diclofenac sodium 75 mg tablet,delayed release 75 mg PO .COMPLEX arthritic pain 03/31/23 [History Last Taken 03/29/23] diphenhydramine HCl 25 mg capsule (Allergy (diphenhydramine)) 50 mg PO QHS insomnia and allergies 03/31/23 [History Last Taken Unknown] ibuprofen 800 mg tablet (IBU) 800 mg PO DAILY PRN headache 03/31/23 [History Last Taken Unknown] amiodarone 200 mg tablet 200 mg PO BID afib 5 days #0 tabs 04/03/23 [Rx Last Taken Unknown] amiodarone 200 mg tablet 200 mg PO DAILY afib 30 days #0 tabs 04/03/23 [Rx Last Taken Unknown] apixaban 5 mg tablet (Eliquis) 5 mg PO BID blood thinner 30 days #0 tabs 04/03/23 [Rx Last Taken Unknown] methimazole 10 mg tablet 20 mg (2 x 10 mg) PO DAILY thyroid 30 days #60 tabs 04/03/23 [Rx Last Taken Unknown] methimazole 5 mg tablet 40 mg (8 x 5 mg) PO DAILY thyroid 3 days #24 tabs 04/03/23 [Rx Last Taken Unknown] metoprolol tartrate 25 mg tablet 25 mg PO BID heart/pulse 30 days #0 tabs 04/03/23 [Rx Last Taken Unknown] Allergy/AdvReac Type Severity Reaction Status Date / Time adhesive tape Allergy Other Verified 09/21/20 20:13 apple Allergy Swelling Verified 04/02/23 10:17 cephalexin monohydrate Allergy Other Verified 09/21/20 20:13 [From Keflex] ciprofloxacin [From Cipro] Allergy Hives Verified 09/21/20 20:13 ciprofloxacin HCl Allergy Hives Verified 09/21/20 20:13 [From Cipro] citalopram hydrobromide Allergy Unknown Verified 09/21/20 20:13 [From Celexa] clarithromycin [From Biaxin] Allergy Unknown Verified 09/21/20 20:13 codeine Allergy Unknown Verified 09/21/20 20:13 diltiazem HCl [From Cardizem] Allergy Unknown Verified 09/21/20 20:13 fluoxetine HCl [From Prozac] Allergy Unknown Verified 09/21/20 20:13 fluticasone Allergy Swelling Verified 09/21/20 20:13 [From Advair Diskus] fluticasone propionate Allergy Other Verified 09/21/20 20:13 [From Advair Diskus] hydrochlorothiazide Allergy Unknown Verified 09/21/20 20:13 [From Hyzaar] ipratropium bromide Allergy Unknown Verified 09/21/20 20:13 [From Atrovent] labetalol Allergy Rash Verified 09/21/20 20:13 lamotrigine [From Lamictal] Allergy Unknown Verified 09/21/20 20:13 latex Allergy Unknown Verified 09/21/20 20:13 liraglutide [From Victoza] Allergy Unknown Verified 09/21/20 20:13 losartan potassium Allergy Unknown Verified 09/21/20 20:13 [From Hyzaar] meloxicam [From Mobic] Allergy Other Verified 09/21/20 20:13 nitrofurantoin Allergy Hives Verified 11/18/19 13:15 [From Macrobid] nitrofurantoin Allergy Hives Verified 11/18/19 13:15 macrocrystalline [From Macrobid] Penicillins Allergy Rash Verified 09/21/20 20:13 pineapple Allergy Other Verified 04/02/23 10:17 quetiapine fumarate Allergy Unknown Verified 09/21/20 20:13 [From Seroquel] salmeterol Allergy Swelling Verified 09/21/20 20:13 [From Advair Diskus] salmeterol xinafoate Allergy Other Verified 09/21/20 20:13 [From Advair Diskus] sertraline HCl [From Zoloft] Allergy Unknown Verified 09/21/20 20:13 simvastatin [From Zocor] Allergy Unknown Verified 09/21/20 20:13 topiramate [From Topamax] Allergy Unknown Verified 09/21/20 20:13 verapamil HCl Allergy Unknown Verified 09/21/20 20:13 [From Covera-HS] zonisamide [From Zonegran] Allergy Shortness Verified 09/21/20 20:13 of breath acetaminophen [From Lortab] AdvReac Nausea Verified 09/21/20 20:13 hydrocodone bitartrate AdvReac Nausea Verified 09/21/20 20:13 [From Lortab] ramipril [From Altace] AdvReac Laryngospas Verified 09/21/20 20:13 ms sulfamethoxazole AdvReac Unknown Verified 09/21/20 20:13 [From Septra] trimethoprim [From Septra] AdvReac Unknown Verified 09/21/20 20:13 Surgical History History of bladder repair surgery History of carpal tunnel release History of cholecystectomy History of hysterectomy Social History household members: none housing: apartment current occupational status: disabled current occupation: Patient is disabled due to Parkinson's disease Smoking Status: Never smoker alcohol intake: never substance use type: does not use ROS Constitutional Constitutional: Denies chills, fever(s) or weight gain ENT HEENT: Denies headache(s), nasal congestion or nasal discharge Cardiovascular Cardiovascular: Denies chest pain or palpitations Respiratory/Chest Respiratory/Chest: Denies cough, excessive phlegm production or shortness of breath with exertion Gastrointestinal Gastrointestinal: Denies abdominal pain, nausea or vomiting Genitourinary Genitourinary: Denies dysuria Musculoskeletal Musculoskeletal: Denies joint pain or joint swelling Integumentary Integumentary: Denies rash or wounds Neurologic Neurologic: Reports abnormal movements and other Details: Tremors. ; Denies focal weakness, numbness or tingling Psychiatric Psychiatric: Denies anxiety, auditory hallucinations, depression, homicidal ideation or suicidal ideation Vital Signs Vital Signs Vital Signs: 04/03/23 12:19 Temperature 97.8 F Temperature Source Temporal Pulse Rate 76 Respiratory Rate 18 Blood Pressure 137/71 H Blood Pressure Mean 93 Blood Pressure Source Monitor Blood Pressure Position Sitting Blood Pressure Location Right Forearm Pulse Ox 95 Oxygen Delivery Method Room Air Weight Weight: 100.4 kg Body Mass Index (BMI) 39.2 Physical Exam Const alert General Appearance: cooperative HEENT normocephalic Eyes PERRL and EOMs intact bilaterally Neck supple, no JVD and no carotid bruits Resp normal respiratory effort, normal air movement and clear to auscultation bilaterally Cardio regular rate and regular rhythm GI normal to inspection, nondistended, normoactive bowel sounds, non-tender and non-distended Extremity normal capillary refill General Extremity: Negative for edema Skin no rashes or lesions noted General Skin Exam: no breakdown Neuro Neuro Narrative: Resting tremor bilateral upper extremities. Psych affect normal Appearance: appropriate Assessment & Plan Assessment/Plan (1) Debility: (2) Atrial flutter: (3) Multiple falls: (4) Tremor: (5) Parkinson disease: (6) HTN (hypertension): QUALIFIERS: Hypertension type: essential hypertension Qualified Code(s): I10 - Essential (primary) hypertension (7) Leg cramps: (8) Diabetes mellitus type II, controlled: (9) Anxiety: (10) Overactive bladder: (11) Depression: (12) Asthma: PLAN: Plan 67 year old female with below past medical history hospitalized for falls, atrial flutter, hyperthyroidism, admitted to TCU with debility, here for rehabilitation, strengthening, prior to discharge home alone. * Debility - PT/OT. * Pain - Tylenol 1000mg q6 prn pain (1-10). * Bowel - senna/colace 1 tablet bid, Magnesium citrate 300ml daily prn. * Adult immunization - Administer pneumonia vaccine, covid vaccine, flu vaccine as appropriate. * DVT prophylaxis - on Eliquis. * Parkinson Disease - f/u Dr. Andrade at discharge. * Atrial Fibrillation - Metoprolol 25mg bid, Amiodarone 200mg bid thru 04/08/2023, then 200mg daily, Eliquis 5mg bid. * Hypertension - Metoprolol 25mg bid, Amlodipine 10mg daily, Clonidine 0.3mg bid. * Leg cramps - Flexeril 10mg qhs prn. * Allergic rhinitis/Allergic conjunctivitis/insomnia - Benadryl 25mg bid prn, Benadryl 50mg qhs prn. * Diabetes Mellitus II - Glargine 56 units daily. * Hyperthyroidism - Methimazole 40mg daily thru 04/05/2023, then 20mg daily, repeat TSH, Free T4, T3 04/16/2023. 04/03/23 1349 <Electronically signed by Troy Gallo MD> Cosigner Signature (if applicable): CC: Dr. Sagrario Perez MD; Dr. Troy Gallo MD~ Signed [facility] Work Phone: 1(334) 670-230402-01-2024 Progress note Author Dana Robles [facility] April 02, 2023 4:03pm Note Date/Time April 02, 2023 1 0:28am [facility] Medical Records Department [address] [place] [address] Progress Note - Cardiology 04/02/23 1021 MR#: [id number] Acct: [id number] Name: TIFFANIE VILLAFANA Rep #:[id number] : 1955 67 From: Dana Robles MD PCP: Dr. Sagrario Perez MD Status:AD M IN [facility] <Statement entered by Dana Robles MD - 04/02/23 16:03> Pt seen & evaluated w/UDAY. I personally interviewed & exam the pt. I was involved in all aspects of pt's orders, interpretation of results & treatment Subjective Subjective Pt seen and examined. Feels better than yesterday. Having PAF on monitor. Sheis not aware of palpitations. Denies CP/ SOB. Objective Data Vital Signs: Vital Signs Temp Pulse Resp BP Pulse Ox O2 Del Method 98.4 F 94 18 161/81 H 95 Room Air 04/02/23 09:30 04/02/23 09:33 04/02/23 09:30 04/02/23 09:33 04/02/23 09:30 04/02/23 09:30 Oxygen Delivery Method Room Air Weight: 224 lb 13.944 oz Body Mass Index (BMI) 39.8 Intake & Output: Intake and Output for Last 24 Hours 03/31/23 04/01/23 04/02/23 23:59 23:59 23:59 Intake Total 1169.61 / 1306.26 2628.06 / 2628.06 860 / 860 Output Total 700 / 1000 650 / 650 Balance 1169.61 / 1306.26 1928.06 / 1628.06 210 / 210 Lab / Micro Data 04/02/23 04:18 04/02/23 04:18 Labs: Laboratory Results - last 24 hr 04/01/23 04:21: Free T4 2.60 H, Free T3 pg/dL 3.1 04/01/23 11:10: POC Glucose 177 H 04/01/23 13:10: APTT 49.8 H 04/01/23 16:20: POC Glucose 222 H 04/01/23 20:05: APTT 52.5 H 04/02/23 04:18: WBC 7.0, RBC 4.35, Hgb 10.9 L, Hct 35.6 L, MCV 81.8, MCH 25.1 L,MCHC 30.6 L, RDW Std Deviation 44.3 H, RDW Coeff of Rico 14.7 H, Plt Count 147 L,MPV 13.0 H, Immature Gran % (Auto) 0.400, Neut % (Auto) 56.6, Lymph % (Auto) 23.9, [place] % (Auto) 14.9 H, Eos % (Auto) 3.6, Baso % (Auto) 0.6, Absolute Neuts (auto) 3.9, Absolute Lymphs (auto) 1.66, Nucleated RBC % 0, APTT 68.6 H, Sodium 139, Potassium 3.5, Chloride 114 H, Carbon Dioxide 23.0, Anion Gap 2 L, BUN 24 H, Creatinine 1.02, Estim Creat Clear Calc 62.71, Est GFR (MDRD) Af Amer 70, Est GFR (MDRD) Non-Af 58 L, BUN/Creatinine Ratio 23.5 H, Glucose 140 H, Calcium 8.9 04/02/23 06:43: POC Glucose 137 H Rhythm Strip Rhythm Strip: Sinus Rhythm Rate: 90 Ectopy: None Cardiology Labs/Tests 04/01/23 13:10: APTT 49.8 H 04/01/23 20:05: APTT 52.5 H 04/02/23 04:18: WBC 7.0, RBC 4.35, Hgb 10.9 L, Hct 35.6 L, MCV 81.8, MCH 25.1 L,MCHC 30.6 L, Plt Count 147 L, MPV 13.0 H, Immature Gran % (Auto) 0.400, Neut % (Auto) 56.6, Lymph % (Auto) 23.9, [place] % (Auto) 14.9 H, Eos % (Auto) 3.6, Baso %(Auto) 0.6, Absolute Neuts (auto) 3.9, Nucleated RBC % 0, APTT 68.6 H, Sodium 139, Potassium 3.5, Chloride 114 H, Carbon Dioxide 23.0, Anion Gap 2 L, BUN 24 H, Creatinine 1.02, Est GFR (MDRD) Af Amer 70, Est GFR (MDRD) Non-Af 58 L, BUN/Creatinine Ratio 23.5 H, Glucose 140 H, Calcium 8.9 Radiography Diagnostic Testing: Radiology Impression Echocardiogram 03/31/23 20:29 Interpretation Summary The estimated ejection fraction is 60 %. No evidence for diastolic dysfunction. Mild concentric left ventricular hypertrophy. Moderate mitral annular calcification. The mitral valve chordae are thickened and/or calcified. Mild focal aortic valve calcification. No previous echocardiogram to compare Contrast injection was performed. Ordering Physician: Noa Lao Referring Physician: Sagrario Perez M.D. Performed By: Wellington Hensley RCS Physical Exam Narrative General: Alert, Oriented x3, Cooperative, No apparent distress, tremor HEENT: Atraumatic, PERRLA, EOMI, Normocephalic Oral: Moist Mucosa Neck: Supple, No JVD Lungs: Diminished, Normal air movement, No rhonchi, No wheeze, No rales Cardiovascular: Regular Rhythm, Normal S1, Normal S2, 1/6 LETICIA Abdomen: Soft, Non Tender, Non-Distended, No Hepato-splenomegaly Extremities: No edema, Capillary Refill Less than 3 Seconds Musculoskeletal: No Tenderness to Palpation of Joints or Extremities Neurological: Resting tremor with masked facies and rigidity Assessment & Plan Assessment/Plan (1) Atrial flutter: (2) HTN (hypertension): QUALIFIERS: Hypertension type: essential hypertension Qualified Code(s): I10 - Essential (primary) hypertension (3) Hyperlipidemia: PLAN: Plan * Pt did convert to NSR on IV amiodarone. She is now on amiodarone 200 mg BID for 7 days then decrease to 200 mg a day. Will continue Metoprolol 25 mg BID. It is noted that she had a rash to labetolol, will monitor here in hospital on metoprolol. * She is noted to be hyperthyroid, question if this is contributing to her Atrial flutter. She has been started on Methimazole * Pt notes that her falls were just over the last 2 weeks. Since she is now being treated for her hyperthyroidism and will be going to rehab feel that it is okay to start eliquis. If there is concern about her risk of falls can reassess. * Echocardiogram revealed ejection fraction 60% Mild concentric left ventricle hypertrophy, From cardiac standpoint we will continue to monitor and follow-up clinically. Charges/Coding Visit Charges Inpatient E&M: 51427 Subs Hosp L2 04/02/23 1603 <Electronically signed by Dana Robles MD> Cosigner Signature (if applicable): 04/02/23 1314 <Electronically signed by Marisol CROWLEY> CC: ~ Signed [facility] Work Phone: 1(466) 435-382202-01-2024 Progress note Author Ethan Yip [facility] April 02, 2023 10:15am Note Date/Time April 02, 2023 1 0:15am [facility] Medical Records Department [address] [place] [address] Progress Note - Hospitalist 04/02/23 1013 MR#: [id number] Acct: [id number] Name: TIFFANIE VILLAFANA Rep #:[id number] : 1955 67 From: Ethan torres MD PCP: Dr. Sagrario Perez MD Status:AD M IN Location: [place] [address] Subjective Subjective Doing well, feels better after first dose of methimazole Objective Data Objective Data Vital Signs: Vital Signs Temp Pulse Resp BP Pulse Ox O2 Del Method 98.4 F 94 18 161/81 H 95 Room Air 04/02/23 09:30 04/02/23 09:33 04/02/23 09:30 04/02/23 09:33 04/02/23 09:30 04/02/23 09:30 Oxygen Delivery Method Room Air Weight: 224 lb 13.944 oz Body Mass Index (BMI) 39.8 Intake & Output: Intake and Output for Last 24 Hours 04/01/23 04/02/23 04/03/23 03:59 03:59 03:59 Intake Total 1423.00 / 1427.73 2374.67 / 2374.67 860 / 860 Output Total 1000 / 1000 350 / 350 Balance 1423.00 / 1427.73 1374.67 / 1374.67 510 / 510 Lab / Micro Data 04/02/23 04:18 04/02/23 04:18 Labs: Laboratory Results - last 24 hr 04/01/23 04:21: Free T4 2.60 H, Free T3 pg/dL 3.1 04/01/23 11:10: POC Glucose 177 H 04/01/23 13:10: APTT 49.8 H 04/01/23 16:20: POC Glucose 222 H 04/01/23 20:05: APTT 52.5 H 04/02/23 04:18: WBC 7.0, RBC 4.35, Hgb 10.9 L, Hct 35.6 L, MCV 81.8, MCH 25.1 L,MCHC 30.6 L, RDW Std Deviation 44.3 H, RDW Coeff of Rico 14.7 H, Plt Count 147 L,MPV 13.0 H, Immature Gran % (Auto) 0.400, Neut % (Auto) 56.6, Lymph % (Auto) 23.9, [place] % (Auto) 14.9 H, Eos % (Auto) 3.6, Baso % (Auto) 0.6, Absolute Neuts (auto) 3.9, Absolute Lymphs (auto) 1.66, Nucleated RBC % 0, APTT 68.6 H, Sodium 139, Potassium 3.5, Chloride 114 H, Carbon Dioxide 23.0, Anion Gap 2 L, BUN 24 H, Creatinine 1.02, Estim Creat Clear Calc 62.71, Est GFR (MDRD) Af Amer 70, Est GFR (MDRD) Non-Af 58 L, BUN/Creatinine Ratio 23.5 H, Glucose 140 H, Calcium 8.9 04/02/23 06:43: POC Glucose 137 H Radiography Diagnostic Testing: Radiology Impression Echocardiogram 03/31/23 20:29 Interpretation Summary The estimated ejection fraction is 60 %. No evidence for diastolic dysfunction. Mild concentric left ventricular hypertrophy. Moderate mitral annular calcification. The mitral valve chordae are thickened and/or calcified. Mild focal aortic valve calcification. No previous echocardiogram to compare Contrast injection was performed. Ordering Physician: Noa Lao Referring Physician: Sagrario Perez M.D. Performed By: Wellington Hensley RCS Rhythm Strip Rhythm Strip: Sinus Rhythm Rate: 90 Ectopy: None Physical Exam Narrative General: Alert, Oriented x3, Cooperative, No apparent distress, tremor HEENT: Atraumatic, PERRLA, EOMI, Normocephalic Oral: Moist Mucosa Neck: Supple, No JVD Lungs: Diminished, Normal air movement, No rhonchi, No wheeze, No rales Cardiovascular: Tachycardic, Regular Rhythm, Normal S1, Normal S2, No murmurs Abdomen: Soft, Non Tender, Non-Distended, No Hepato-splenomegaly Extremities: No edema, Capillary Refill Less than 3 Seconds Skin: No rashes, No breakdown Musculoskeletal: No Tenderness to Palpation of Joints or Extremities Neurological: Resting tremor with masked facies and rigidity Psych/Mental Status: Flat Assessment & Plan Assessment/Plan (1) Multiple falls: (2) Contusion of lower back: (3) Atrial tachycardia: (4) Elevated serum creatinine: PLAN: Plan 1. Atrial tachycardia due to thyrotoxicosis/HTN/HLD ? On admission it appears to be flutter with a 2-1 block ? Adenosine was given in the ED department which identified the flutter waves ? Continue with the heparin drip, echo is pending ? T4 was high but T3 was normal, discussed with endocrinology they will see her in follow-up as an outpatient. Will continue with methimazole 40 mg p.o. daily for 5 days and then down to 20 mg p.o. daily with repeat lab work in 2 weeks ? Appreciate cardiology's assistance ? Continue with IV fluids ? Can resume her home blood pressure medications, will monitor make adjustments as necessary ? She is intolerant of statins 2. Parkinson's disease with debility and falls ? She is not on any Parkinson's medication secondary to significant side effectsincluding rash and anaphylaxis ? PT/OT ? Case management consult for discharge planning ? Continue with Flexeril and Benadryl which she says usually allows her to get some sleep but she was not able to sleep today ? Will give her nighttime dose of trazodone to see if this assists 3. DM2 ? We will hold her home medications ? Sliding scale insulin ? Accu-Cheks ACHS ? We will monitor make adjustments as necessary 4. Overactive bladder ? We will hold her oxybutynin as this is likely contributing to her falls ? Will discontinue on discharge 5. JOSIE ? She does not tolerate a CPAP mask 6. Anxiety/depression ? She does not take any medications as she has significant allergies to multipleother medications recommend continued outpatient follow-up DVT: Heparin drip Charges/Coding Visit Charges Inpatient E&M: 99773 Subs Hosp L2 04/02/23 1015 <Electronically signed by Ethan Yip MD> Cosigner Signature (if applicable): CC: ~ Signed [facility] Work Phone: 1(119) 363-351901-31-2024 Consult note Author Dana Robles [facility] April 01, 2023 5:58pm Note Date/Time April 01, 2023 1 :44pm [facility] Medical Records Department [address] [place] [address] Consultation - Cardiology 04/01/23 1342 MR#: [id number] Acct: [id number] Name: TIFFANIE VILLAFANA Rep #:[id number] : 1955 67 From: Dana Robles MD PCP: Dr. Sagrario Perez MD Status:AD M IN Location: [id number] Documented by User: Marisol CROWLEY, PA 04/01/23 14:16 Assessment & Plan Assessment/Plan (1) Atrial flutter: (2) HTN (hypertension): QUALIFIERS: Hypertension type: essential hypertension Qualified Code(s): I10 - Essential (primary) hypertension (3) Hyperlipidemia: PLAN: Plan * Pt did convert to NSR on IV amiodarone. Will switch to PO. Will start at 200 mg BID for 7 days then decrease to 200 mg a day. Will start Metoprolol 25 mg BID. It is noted that she had a rash to labetolol, will monitor here in hospital on metoprolol. * She is noted to be hyperthyroid, question if this is contributing to her Atrial flutter. * With the frequency of pt falls, feel that she is a high risk to start anticoagulation. Recommend that she start an ASA. Can consider and EP referral for possible ablation or to be considered for a watchman. This can be done on OP basis. * For now will monitor BP readings, it is noted that it is elevated. Question if her tremors are contributing to the elevated BP reading with the automatic cuff. * Echocardiogram is pending HPI Consult Data Date of Consult: 04/01/23 HPI Narrative HPI Narrative: TIFFANIE VILLAFANA, is a 67 F who presented to [facility] ER with weakness and multiple falls this week. She has parkinsonian tremors and is allergic to medication forthis. She does live alone and is on disability. She does have a hx of HTN, HL,DM. She was getting ready to be d/c back home when she was noted to be in atrialflutter with 2:1 block. She was given 6 mg adenosine and flutter waves were noted. She is not sure if she has ever been diagnosed with Afib in the past. Currently during her examine she has a IRENE. She currently does not have any chest pain/ SOB. She is not aware of her atrial fib. She did convert to NSR overnight. [facility] Medical History Anxiety Asthma Depression Diabetes History of left heart catheterization Hyperlipidemia Hypertension Non-smoker Tremor Home Medications amlodipine 10 mg tablet 1 tab PO DAILY BLOOD PRESSURE 05/27/17 [History Last Taken 05/27/17 16:00] clonidine HCl 0.3 mg tablet 1 tab PO BID BLOOD PRESSURE 05/27/17 [History Last Taken Unknown] cyclobenzaprine 10 mg tablet 10 mg PO QHS PRN LEG CRAMPS 05/27/17 [History Last Taken Unknown] insulin degludec 200 unit/mL (3 mL) subcutaneous pen (Tresiba FlexTouch U-200 insulin) 56 unit subcut QHS DIABETES 09/21/20 [History Last Taken Unknown] aspirin 81 mg tablet,delayed release (Adult Low Dose Aspirin) 81 mg PO DAILY HEART HEALTH 03/31/23 [History Last Taken Unknown] diclofenac sodium 75 mg tablet,delayed release 75 mg PO .COMPLEX arthritic pain 03/31/23 [History Last Taken 03/29/23] diphenhydramine HCl 25 mg capsule (Allergy (diphenhydramine)) 50 mg PO QHS insomnia and allergies 03/31/23 [History Last Taken Unknown] ibuprofen 800 mg tablet (IBU) 800 mg PO DAILY PRN headache 03/31/23 [History Last Taken Unknown] oxybutynin chloride 15 mg tablet,extended release 24 hr 15 mg PO BID OVERACTIVE BLADDER 03/31/23 [History Last Taken Unknown] Allergy/AdvReac Type Severity Reaction Status Date / Time adhesive tape Allergy Other Verified 09/21/20 20:13 cephalexin monohydrate Allergy Other Verified 09/21/20 20:13 [From Keflex] ciprofloxacin [From Cipro] Allergy Hives Verified 09/21/20 20:13 ciprofloxacin HCl Allergy Hives Verified 09/21/20 20:13 [From Cipro] citalopram hydrobromide Allergy Unknown Verified 09/21/20 20:13 [From Celexa] clarithromycin [From Biaxin] Allergy Unknown Verified 09/21/20 20:13 codeine Allergy Unknown Verified 09/21/20 20:13 diltiazem HCl [From Cardizem] Allergy Unknown Verified 09/21/20 20:13 fluoxetine HCl [From Prozac] Allergy Unknown Verified 09/21/20 20:13 fluticasone Allergy Swelling Verified 09/21/20 20:13 [From Advair Diskus] fluticasone propionate Allergy Other Verified 09/21/20 20:13 [From Advair Diskus] hydrochlorothiazide Allergy Unknown Verified 09/21/20 20:13 [From Hyzaar] ipratropium bromide Allergy Unknown Verified 09/21/20 20:13 [From Atrovent] labetalol Allergy Rash Verified 09/21/20 20:13 lamotrigine [From Lamictal] Allergy Unknown Verified 09/21/20 20:13 latex Allergy Unknown Verified 09/21/20 20:13 liraglutide [From Victoza] Allergy Unknown Verified 09/21/20 20:13 losartan potassium Allergy Unknown Verified 09/21/20 20:13 [From Hyzaar] meloxicam [From Mobic] Allergy Other Verified 09/21/20 20:13 nitrofurantoin Allergy Hives Verified 11/18/19 13:15 [From Macrobid] nitrofurantoin Allergy Hives Verified 11/18/19 13:15 macrocrystalline [From Macrobid] Penicillins Allergy Rash Verified 09/21/20 20:13 quetiapine fumarate Allergy Unknown Verified 09/21/20 20:13 [From Seroquel] salmeterol Allergy Swelling Verified 09/21/20 20:13 [From Advair Diskus] salmeterol xinafoate Allergy Other Verified 09/21/20 20:13 [From Advair Diskus] sertraline HCl [From Zoloft] Allergy Unknown Verified 09/21/20 20:13 simvastatin [From Zocor] Allergy Unknown Verified 09/21/20 20:13 topiramate [From Topamax] Allergy Unknown Verified 09/21/20 20:13 verapamil HCl Allergy Unknown Verified 09/21/20 20:13 [From Covera-HS] zonisamide [From Zonegran] Allergy Shortness Verified 09/21/20 20:13 of breath acetaminophen [From Lortab] AdvReac Nausea Verified 09/21/20 20:13 hydrocodone bitartrate AdvReac Nausea Verified 09/21/20 20:13 [From Lortab] ramipril [From Altace] AdvReac Laryngospas Verified 09/21/20 20:13 ms sulfamethoxazole AdvReac Unknown Verified 09/21/20 20:13 [From Septra] trimethoprim [From Septra] AdvReac Unknown Verified 07/23/21 20:13 Family History other Surgical History History of bladder repair surgery History of carpal tunnel release History of cholecystectomy History of hysterectomy Social History (Updated 03/31/23 @ 21:[address] Noa Lao DO) household members: none housing: apartment current occupational status: disabled current occupation: Patient is disabled due to Parkinson's disease Smoking Status: Never smoker alcohol intake: never substance use type: does not use ROS Constitutional Constitutional: Reports weakness; Denies chills, fatigue, fever(s) or malaise Eyes Eyes: Denies blurry vision, change in vision, double vision or loss of vision ENT HEENT: Denies dysphagia, epistaxis, hearing loss or nasal discharge Cardiovascular Cardiovascular: Reports as per HPI Respiratory/Chest Respiratory/Chest: Denies cough, dyspnea, shortness of breath at rest or shortness of breath with exertion Gastrointestinal Gastrointestinal: Denies coffee ground emesis, constipation or nausea Musculoskeletal Musculoskeletal: Reports back pain, joint pain and joint stiffness; Denies arthralgias or joint swelling Neurologic Neurologic: Reports abnormal gait and tremor(s); Denies abnormal speech, confusion, dizziness, focal weakness, syncope or tingling Physical Exam Narrative General: Alert, Oriented x3, Cooperative, No apparent distress, tremor HEENT: Atraumatic, PERRLA, EOMI, Normocephalic Oral: Moist Mucosa Neck: Supple, No JVD Lungs: Diminished, Normal air movement, No rhonchi, No wheeze, No rales Cardiovascular: Tachycardic, Regular Rhythm, Normal S1, Normal S2, No murmurs Abdomen: Soft, Non Tender, Non-Distended, No Hepato-splenomegaly Extremities: No edema, Capillary Refill Less than 3 Seconds Musculoskeletal: No Tenderness to Palpation of Joints or Extremities Neurological: Resting tremor with masked facies and rigidity Risk Stratification Risk Stratification Applicable: No Objective Data Vital Signs: Vital Signs Temp Pulse Resp BP Pulse Ox O2 Del Method 97.7 F L 101 H 16 179/88 H 100 Room Air 04/01/23 11:25 04/01/23 13:23 04/01/23 13:23 04/01/23 13:00 04/01/23 13:23 04/01/23 13:28 Oxygen Delivery Method Room Air Weight: 222 lb 10.67 oz Body Mass Index (BMI) 39.4 Intake & Output: Intake and Output for Last 24 Hours 03/30/23 03/31/23 04/01/23 23:59 23:59 23:59 Intake Total 1169.61 / 1306.26 1332.40 / 1332.40 Output Total 500 / 500 Balance 1169.61 / 1306.26 832.40 / 832.40 Lab / Micro Data 04/01/23 04:21 04/01/23 04:21 Labs: Laboratory Results - last 24 hr 03/31/23 10:20: TSH < 0.01 L 03/31/23 21:09: PT 14.7, INR 1.2, APTT 33.1 03/31/23 21:36: POC Glucose 131 H 03/31/23 22:22: Troponin I High Sens 50 04/01/23 00:02: Troponin I High Sens 44 04/01/23 04:21: WBC 9.3, RBC 4.64, Hgb 11.7 L, Hct 38.5, MCV 83.0, MCH 25.2 L, MCHC 30.4 L, RDW Std Deviation 44.2 H, RDW Coeff of Rico 14.6, Plt Count 235, MPV10.1, Immature Gran % (Auto) 0.300, Neut % (Auto) 70.1 H, Lymph % (Auto) 15.5 L,[place] % (Auto) 12.7 H, Eos % (Auto) 1.1, Baso % (Auto) 0.3, Absolute Neuts (auto)6.5, Absolute Lymphs (auto) 1.44, Nucleated RBC % 0, APTT 130.4 H*, Sodium 138, Potassium 3.9, Chloride 110 H, Carbon Dioxide 17.0 L, Anion Gap 11, BUN 28 H, Creatinine 1.11 H, Estim Creat Clear Calc 57.30, Est GFR (MDRD) Af Amer 63, Est GFR (MDRD) Non- Af 52 L, BUN/Creatinine Ratio 25.2 H, Glucose 155 H, Calcium 9.1,Phosphorus 3.5, Magnesium 1.7, Total Bilirubin 0.60, AST 25, ALT 25, Alkaline Phosphatase 94, Troponin I High Sens 43, Total Protein 6.6, Albumin 2.6 L, Globulin 4.0, Albumin/Globulin Ratio 0.6 L, Free T4 2.60 H, Free T3 pg/dL 3.1 04/01/23 06:20: POC Glucose 166 H 04/01/23 11:10: POC Glucose 177 H 04/01/23 13:10: APTT 49.8 H Rhythm Strip Rhythm Strip: Sinus Rhythm Rate: 90 Ectopy: None Cardiology Labs/Tests 03/31/23 21:09: PT 14.7, INR 1.2, APTT 33.1 04/01/23 04:21: WBC 9.3, RBC 4.64, Hgb 11.7 L, Hct 38.5, MCV 83.0, MCH 25.2 L, MCHC 30.4 L, Plt Count 235, MPV 10.1, Immature Gran % (Auto) 0.300, Neut % (Auto) 70.1 H, Lymph % (Auto) 15.5 L, [place] % (Auto) 12.7 H, Eos % (Auto) 1.1, Baso % (Auto) 0.3, Absolute Neuts (auto) 6.5, Nucleated RBC % 0, APTT 130.4 H*, Sodium 138, Potassium 3.9, Chloride 110 H, Carbon Dioxide 17.0 L, Anion Gap 11, BUN 28 H, Creatinine 1.11 H, Est GFR (MDRD) Af Amer 63, Est GFR (MDRD) Non-Af 52L, BUN/Creatinine Ratio 25.2 H, Glucose 155 H, Calcium 9.1, Phosphorus 3.5, Magnesium 1.7, Total Bilirubin 0.60 04/01/23 13:10: APTT 49.8 H Rhythm: NSR ECHO: pending Radiography Diagnostic Testing: Radiology Impression Knee X-Ray 03/31/23 10:36 IMPRESSION: Degenerative arthrosis. Electronically Signed: Thor Escalona MD at 12:15 EST , Chest X-Ray 03/31/23 13:38 IMPRESSION: Normal x-ray examination of the chest. Electronically Signed: Thor Escalona MD at 14:34 EST , Documented by User: Dr. Dana Robles MD 04/01/23 17:58 Assessment & Plan Assessment/Plan (1) Atrial flutter: (2) HTN (hypertension): QUALIFIERS: Hypertension type: essential hypertension Qualified Code(s): I10 - Essential (primary) hypertension (3) Hyperlipidemia: PLAN: Plan * Pt did convert to NSR on IV amiodarone. Will switch to PO. Will start at 200 mg BID for 7 days then decrease to 200 mg a day. Will start Metoprolol 25 mg BID. It is noted that she had a rash to labetolol, will monitor here in hospital on metoprolol. * She is noted to be hyperthyroid, question if this is contributing to her Atrial flutter. * With the frequency of pt falls, feel that she is a high risk to start anticoagulation. Recommend that she start an ASA. Can consider and EP referral for possible ablation or to be considered for a watchman. This can be done on OP basis. * For now will monitor BP readings, it is noted that it is elevated. Question if her tremors are contributing to the elevated BP reading with the automatic cuff. * Echocardiogram revealed ejection fraction 60% Mild concentric left ventricle hypertrophy, From cardiac standpoint we will continue to monitor and follow-up clinically. HPI Consult Data Date of Consult: 04/01/23 [facility] Medical History Anxiety Asthma Depression Diabetes History of left heart catheterization Hyperlipidemia Hypertension Non-smoker Tremor Home Medications amlodipine 10 mg tablet 1 tab PO DAILY BLOOD PRESSURE 05/27/17 [History Last Taken 05/27/17 16:00] clonidine HCl 0.3 mg tablet 1 tab PO BID BLOOD PRESSURE 05/27/17 [History Last Taken Unknown] cyclobenzaprine 10 mg tablet 10 mg PO QHS PRN LEG CRAMPS 05/27/17 [History Last Taken Unknown] insulin degludec 200 unit/mL (3 mL) subcutaneous pen (Tresiba FlexTouch U-200 insulin) 56 unit subcut QHS DIABETES 09/21/20 [History Last Taken Unknown] aspirin 81 mg tablet,delayed release (Adult Low Dose Aspirin) 81 mg PO DAILY HEART HEALTH 03/31/23 [History Last Taken Unknown] diclofenac sodium 75 mg tablet,delayed release 75 mg PO .COMPLEX arthritic pain 03/31/23 [History Last Taken 03/29/23] diphenhydramine HCl 25 mg capsule (Allergy (diphenhydramine)) 50 mg PO QHS insomnia and allergies 03/31/23 [History Last Taken Unknown] ibuprofen 800 mg tablet (IBU) 800 mg PO DAILY PRN headache 03/31/23 [History Last Taken Unknown] oxybutynin chloride 15 mg tablet,extended release 24 hr 15 mg PO BID OVERACTIVE BLADDER 03/31/23 [History Last Taken Unknown] Allergy/AdvReac Type Severity Reaction Status Date / Time adhesive tape Allergy Other Verified 09/21/20 20:13 cephalexin monohydrate Allergy Other Verified 09/21/20 20:13 [From Keflex] ciprofloxacin [From Cipro] Allergy Hives Verified 09/21/20 20:13 ciprofloxacin HCl Allergy Hives Verified 09/21/20 20:13 [From Cipro] citalopram hydrobromide Allergy Unknown Verified 09/21/20 20:13 [From Celexa] clarithromycin [From Biaxin] Allergy Unknown Verified 09/21/20 20:13 codeine Allergy Unknown Verified 09/21/20 20:13 diltiazem HCl [From Cardizem] Allergy Unknown Verified 09/21/20 20:13 fluoxetine HCl [From Prozac] Allergy Unknown Verified 09/21/20 20:13 fluticasone Allergy Swelling Verified 09/21/20 20:13 [From Advair Diskus] fluticasone propionate Allergy Other Verified 09/21/20 20:13 [From Advair Diskus] hydrochlorothiazide Allergy Unknown Verified 09/21/20 20:13 [From Hyzaar] ipratropium bromide Allergy Unknown Verified 09/21/20 20:13 [From Atrovent] labetalol Allergy Rash Verified 09/21/20 20:13 lamotrigine [From Lamictal] Allergy Unknown Verified 09/21/20 20:13 latex Allergy Unknown Verified 09/21/20 20:13 liraglutide [From Victoza] Allergy Unknown Verified 09/21/20 20:13 losartan potassium Allergy Unknown Verified 09/21/20 20:13 [From Hyzaar] meloxicam [From Mobic] Allergy Other Verified 09/21/20 20:13 nitrofurantoin Allergy Hives Verified 11/18/19 13:15 [From Macrobid] nitrofurantoin Allergy Hives Verified 11/18/19 13:15 macrocrystalline [From Macrobid] Penicillins Allergy Rash Verified 09/21/20 20:13 quetiapine fumarate Allergy Unknown Verified 09/21/20 20:13 [From Seroquel] salmeterol Allergy Swelling Verified 09/21/20 20:13 [From Advair Diskus] salmeterol xinafoate Allergy Other Verified 09/21/20 20:13 [From Advair Diskus] sertraline HCl [From Zoloft] Allergy Unknown Verified 09/21/20 20:13 simvastatin [From Zocor] Allergy Unknown Verified 09/21/20 20:13 topiramate [From Topamax] Allergy Unknown Verified 09/21/20 20:13 verapamil HCl Allergy Unknown Verified 09/21/20 20:13 [From Covera-HS] zonisamide [From Zonegran] Allergy Shortness Verified 09/21/20 20:13 of breath acetaminophen [From Lortab] AdvReac Nausea Verified 09/21/20 20:13 hydrocodone bitartrate AdvReac Nausea Verified 09/21/20 20:13 [From Lortab] ramipril [From Altace] AdvReac Laryngospas Verified 09/21/20 20:13 ms sulfamethoxazole AdvReac Unknown Verified 09/21/20 20:13 [From Septra] trimethoprim [From Septra] AdvReac Unknown Verified 09/21/20 20:13 Family History other Surgical History History of bladder repair surgery History of carpal tunnel release History of cholecystectomy History of hysterectomy Social History (Updated 03/31/23 @ 21:[address] Noa Lao DO) household members: none housing: apartment current occupational status: disabled current occupation: Patient is disabled due to Parkinson's disease Smoking Status: Never smoker alcohol intake: never substance use type: does not use Lab / Micro Data 04/01/23 04:21 04/01/23 04:21 04/01/23 1758 <Electronically signed by Dana Robles MD> Cosigner Signature (if applicable): 04/01/23 1416 <Electronically signed by Marisol CROWLEY> CC: Dr. Dana Robles MD; Dr. Noa Lao DO; Dr. Sagrario Perez MD~ Signed [facility] Work Phone: 1(619) 871-814501-31-2024 Progress note Author Ethan Yip [facility] April 01, 2023 12:32pm Note Date/Time April 01, 2023 1 2:14pm [facility] Medical Records Department [address] [place] [address] Progress Note - Hospitalist 04/01/23 1214 MR#: [id number] Acct: [id number] Name: TIFFANIE VILLAFANA Rep #:[id number] : 1955 67 From: Ethan torres MD PCP: Dr. Sagrario Perez MD Status:AD M IN Location: [place] [address] Subjective Subjective Did not get much sleep last night because of her tremors. She says that these do appear to be at baseline. Denies any palpitations today however she is a little bit tachycardic on the monitor still Objective Data Objective Data Vital Signs: Vital Signs Temp Pulse Resp BP Pulse Ox O2 Del Method 97.7 F L 114 H 21 H 188/84 H 97 Room Air 04/01/23 11:25 04/01/23 12:00 04/01/23 12:00 04/01/23 12:00 04/01/23 12:00 04/01/23 12:00 Oxygen Delivery Method Room Air Weight: 222 lb 10.67 oz Body Mass Index (BMI) 39.4 Intake & Output: Intake and Output for Last 24 Hours 03/31/23 04/01/23 04/02/23 03:59 03:59 03:59 Intake Total 1423.00 / 1427.73 1060.08 / 1060.08 Output Total 500 / 500 Balance 1423.00 / 1427.73 560.08 / 560.08 Lab / Micro Data 04/01/23 04:21 04/01/23 04:21 Labs: Laboratory Results - last 24 hr 03/31/23 10:20: TSH < 0.01 L 03/31/23 21:09: PT 14.7, INR 1.2, APTT 33.1 03/31/23 21:36: POC Glucose 131 H 03/31/23 22:22: Troponin I High Sens 50 04/01/23 00:02: Troponin I High Sens 44 04/01/23 04:21: WBC 9.3, RBC 4.64, Hgb 11.7 L, Hct 38.5, MCV 83.0, MCH 25.2 L, MCHC 30.4 L, RDW Std Deviation 44.2 H, RDW Coeff of Rico 14.6, Plt Count 235, MPV10.1, Immature Gran % (Auto) 0.300, Neut % (Auto) 70.1 H, Lymph % (Auto) 15.5 L,Charles Mix % (Auto) 12.7 H, Eos % (Auto) 1.1, Baso % (Auto) 0.3, Absolute Neuts (auto)6.5, Absolute Lymphs (auto) 1.44, Nucleated RBC % 0, APTT 130.4 H*, Sodium 138, Potassium 3.9, Chloride 110 H, Carbon Dioxide 17.0 L, Anion Gap 11, BUN 28 H, Creatinine 1.11 H, Estim Creat Clear Calc 57.30, Est GFR (MDRD) Af Amer 63, Est GFR (MDRD) Non- Af 52 L, BUN/Creatinine Ratio 25.2 H, Glucose 155 H, Calcium 9.1,Phosphorus 3.5, Magnesium 1.7, Total Bilirubin 0.60, AST 25, ALT 25, Alkaline Phosphatase 94, Troponin I High Sens 43, Total Protein 6.6, Albumin 2.6 L, Globulin 4.0, Albumin/Globulin Ratio 0.6 L 04/01/23 06:20: POC Glucose 166 H 04/01/23 11:10: POC Glucose 177 H Radiography Diagnostic Testing: Radiology Impression Hip/Pelvis X-Ray 03/31/23 10:36 IMPRESSION: Degenerative changes of the right hip joint. Narrowing of the symphysis pubis. Electronically Signed: Thor Escalona MD at 12:14 EST , Knee X-Ray 03/31/23 10:36 IMPRESSION: Degenerative arthrosis. Electronically Signed: Thor Escalona MD at 12:15 EST , Chest X-Ray 03/31/23 13:38 IMPRESSION: Normal x-ray examination of the chest. Electronically Signed: Thor Escalona MD at 14:34 EST , Rhythm Strip Rhythm Strip: Sinus Rhythm Rate: 90 Ectopy: None Physical Exam Narrative General: Alert, Oriented x3, Cooperative, No apparent distress, tremor HEENT: Atraumatic, PERRLA, EOMI, Normocephalic Oral: Moist Mucosa Neck: Supple, No JVD Lungs: Diminished, Normal air movement, No rhonchi, No wheeze, No rales Cardiovascular: Tachycardic, Regular Rhythm, Normal S1, Normal S2, No murmurs Abdomen: Soft, Non Tender, Non-Distended, No Hepato-splenomegaly Extremities: No edema, Capillary Refill Less than 3 Seconds Skin: No rashes, No breakdown Musculoskeletal: No Tenderness to Palpation of Joints or Extremities Neurological: Resting tremor with masked facies and rigidity Psych/Mental Status: Flat Assessment & Plan Assessment/Plan (1) Multiple falls: (2) Contusion of lower back: (3) Atrial tachycardia: (4) Elevated serum creatinine: PLAN: Plan 1. Atrial tachycardia/HTN/HLD ? On admission it appears to be flutter with a 2-1 block ? Adenosine was given in the ED department which identified the flutter waves ? Continue with the heparin drip, echo is pending ? TSH yesterday morning was significantly depressed, will obtain T3 and T4 ? Appreciate cardiology's assistance ? Continue with IV fluids ? Can resume her home blood pressure medications, will monitor make adjustments as necessary ? She is intolerant of statins 2. Parkinson's disease with debility and falls ? She is not on any Parkinson's medication secondary to significant side effectsincluding rash and anaphylaxis ? PT/OT ? Case management consult for discharge planning ? Continue with Flexeril and Benadryl which she says usually allows her to get some sleep but she was not able to sleep today ? Will give her nighttime dose of trazodone to see if this assists 3. DM2 ? We will hold her home medications ? Sliding scale insulin ? Accu-Cheks ACHS ? We will monitor make adjustments as necessary 4. Overactive bladder ? We will hold her oxybutynin as this is likely contributing to her falls ? Will discontinue on discharge 5. JOSIE ? She does not tolerate a CPAP mask 6. Anxiety/depression ? She does not take any medications as she has significant allergies to multipleother medications recommend continued outpatient follow-up DVT: Heparin drip Charges/Coding Visit Charges Inpatient E&M: 61941 Subs Hosp L2 04/01/23 1232 <Electronically signed by Ethan Yip MD> Cosigner Signature (if applicable): CC: ~ Signed [facility] Work Phone: 1(864) 541-953201-30-2024 History and physical note Author Noa Lao [facility] March 31, 2023 9:22pm Note Date/Time March 31, 2023 8 :13pm [facility] Medical Records Department [address] [place] [address] H&P Exam - Hospitalist 03/31/232010 MR#: [id number] Acct: [id number] Name: TIFFANIE VILLAFANA Rep #:[id number] : 1955 67 From: Noa Lao DO PCP: Dr. Sagrario Perez MD Status:AD M IN Location: [facility] [id number] HPI - General General Date of Admission: 03/31/23 Date of Service: 03/31/23 Chief Complaint: falls HPI Narrative TIFFANIE VILLAFANA, is a 67 F who presented to the emergency department at [facility] on 03/31/2022 due to multiple falls over the last 2 to 3 weeks. Patient has a history of Parkinson's disease but is not intolerant of multiple medications to treat her tremors. The last fall she had was several days ago but her right low back has been hurting since that point in time and today it was hurting so bad that she was unable to even rise up out of bed. Shelives alone and was recently upgraded to a "disability apartment" and had been doing poorly over the last week even in that setting. She was initially evaluated in the emergency department with imaging and lab work. Imaging was all negative for any acute process. Her CBC was unremarkable. Her chemistry panel showed mild elevation in BUN and creatinine at 28 and 1.04 and her urine did notshow any signs of infection however she did appear to be dehydrated with a specific gravity of 1.025. She was given some IV fluids and the plan was to send her home as the patient did not want to be admitted for placement however she then developed acute tachycardia. On questioning, the patient think she mayhave had this about 20 years ago when she lived in [place] but has not had any issues with it since. EKG appears to be consistent with atrial flutter having 2- 1 block. Patient was given adenosine and flutter waves were noted. Patient has multiple allergies to many medications so the case was discussed with cardiology and they recommended initiating an amiodarone drip and starting her on a heparin drip. She is allergic to beta-blockers and calcium channel blockers. Patient does have multiple allergies which will make this complicated. [facility] Medical History Anxiety Asthma Depression Diabetes History of left heart catheterization Hyperlipidemia Hypertension Non-smoker Tremor Home Medications amlodipine 10 mg tablet 1 tab PO DAILY BLOOD PRESSURE 05/27/17 [History Last Taken 05/27/17 16:00] clonidine HCl 0.3 mg tablet 1 tab PO BID BLOOD PRESSURE 05/27/17 [History Last Taken Unknown] cyclobenzaprine 10 mg tablet 10 mg PO QHS PRN LEG CRAMPS 05/27/17 [History Last Taken Unknown] insulin degludec 200 unit/mL (3 mL) subcutaneous pen (Tresiba FlexTouch U-200 insulin) 56 unit subcut QHS DIABETES 09/21/20 [History Last Taken Unknown] aspirin 81 mg tablet,delayed release (Adult Low Dose Aspirin) 81 mg PO DAILY HEART HEALTH 03/31/23 [History Last Taken Unknown] diclofenac sodium 75 mg tablet,delayed release 75 mg PO .COMPLEX arthritic pain 03/31/23 [History Last Taken 03/29/23] diphenhydramine HCl 25 mg capsule (Allergy (diphenhydramine)) 50 mg PO QHS insomnia and allergies 03/31/23 [History Last Taken Unknown] ibuprofen 800 mg tablet (IBU) 800 mg PO DAILY PRN headache 03/31/23 [History Last Taken Unknown] oxybutynin chloride 15 mg tablet,extended release 24 hr 15 mg PO BID OVERACTIVE BLADDER 03/31/23 [History Last Taken Unknown] Allergy/AdvReac Type Severity Reaction Status Date / Time adhesive tape Allergy Other Verified 09/21/20 20:13 cephalexin monohydrate Allergy Other Verified 09/21/20 20:13 [From Keflex] ciprofloxacin [From Cipro] Allergy Hives Verified 09/21/20 20:13 ciprofloxacin HCl Allergy Hives Verified 09/21/20 20:13 [From Cipro] citalopram hydrobromide Allergy Unknown Verified 09/21/20 20:13 [From Celexa] clarithromycin [From Biaxin] Allergy Unknown Verified 09/21/20 20:13 codeine Allergy Unknown Verified 09/21/20 20:13 diltiazem HCl [From Cardizem] Allergy Unknown Verified 09/21/20 20:13 fluoxetine HCl [From Prozac] Allergy Unknown Verified 09/21/20 20:13 fluticasone Allergy Swelling Verified 09/21/20 20:13 [From Advair Diskus] fluticasone propionate Allergy Other Verified 09/21/20 20:13 [From Advair Diskus] hydrochlorothiazide Allergy Unknown Verified 09/21/20 20:13 [From Hyzaar] ipratropium bromide Allergy Unknown Verified 09/21/20 20:13 [From Atrovent] labetalol Allergy Rash Verified 09/21/20 20:13 lamotrigine [From Lamictal] Allergy Unknown Verified 09/21/20 20:13 latex Allergy Unknown Verified 09/21/20 20:13 liraglutide [From Victoza] Allergy Unknown Verified 09/21/20 20:13 losartan potassium Allergy Unknown Verified 09/21/20 20:13 [From Hyzaar] meloxicam [From Mobic] Allergy Other Verified 09/21/20 20:13 nitrofurantoin Allergy Hives Verified 11/18/19 13:15 [From Macrobid] nitrofurantoin Allergy Hives Verified 11/18/19 13:15 macrocrystalline [From Macrobid] Penicillins Allergy Rash Verified 09/21/20 20:13 quetiapine fumarate Allergy Unknown Verified 09/21/20 20:13 [From Seroquel] salmeterol Allergy Swelling Verified 09/21/20 20:13 [From Advair Diskus] salmeterol xinafoate Allergy Other Verified 09/21/20 20:13 [From Advair Diskus] sertraline HCl [From Zoloft] Allergy Unknown Verified 09/21/20 20:13 simvastatin [From Zocor] Allergy Unknown Verified 09/21/20 20:13 topiramate [From Topamax] Allergy Unknown Verified 09/21/20 20:13 verapamil HCl Allergy Unknown Verified 09/21/20 20:13 [From Covera-HS] zonisamide [From Zonegran] Allergy Shortness Verified 09/21/20 20:13 of breath acetaminophen [From Lortab] AdvReac Nausea Verified 09/21/20 20:13 hydrocodone bitartrate AdvReac Nausea Verified 09/21/20 20:13 [From Lortab] ramipril [From Altace] AdvReac Laryngospas Verified 09/21/20 20:13 ms sulfamethoxazole AdvReac Unknown Verified 09/21/20 20:13 [From Septra] trimethoprim [From Septra] AdvReac Unknown Verified 09/21/20 20:13 other (Unknown) Surgical History History of bladder repair surgery History of carpal tunnel release History of cholecystectomy History of hysterectomy Social History (Updated 03/31/23 @ 21:[address] Noa Lao DO) household members: none housing: apartment current occupational status: disabled current occupation: Patient is disabled due to Parkinson's disease Smoking Status: Never smoker alcohol intake: never substance use type: does not use ROS Constitutional Constitutional: Reports weakness; Denies anorexia, change in weight, chills, fatigue, fever(s), malaise, night sweats or other Eyes Eyes: Denies blurry vision, change in eye color, change in vision, discharge from eye(s), double vision, erythema, eye pain, loss of vision or other ENT HEENT: Denies abnormal hearing, dysphagia, ear pain, epistaxis, headache(s), hearing loss, nasal congestion, nasal discharge, post nasal drip, sinus pressure, sore throat or other Cardiovascular Cardiovascular: Reports palpitations; Denies chest pain, claudication, dyspnea on exertion, edema, lightheadedness, orthopnea, paroxysmal nocturnal dyspnea, rapid heart rate, syncope or other Respiratory/Chest Respiratory/Chest: Denies cough, dyspnea, excessive phlegm production, hemoptysis, productive cough, shortness of breath at rest, shortness of breath with exertion, wheezing or other Gastrointestinal Gastrointestinal: Denies abdominal pain, coffee ground emesis, constipation, diarrhea, dyspepsia, hematemesis, hematochezia, loose stools, melena, nausea, vomiting or other Genitourinary Genitourinary: Denies burning urination, difficulty urinating, dysuria, hematuria, nocturia, urinary frequency, urinary hesitancy, urinary incontinence,urinary urgency or other Musculoskeletal Musculoskeletal: Reports back pain, joint pain and joint stiffness; Denies arthralgias, joint swelling, myalgias, neck pain or other Neurologic Neurologic: Reports abnormal gait and tremor(s); Denies abnormal speech, confusion, disequilibrium, dizziness, focal weakness, headache(s), numbness, paresthesias, seizure-like activity, seizures, syncope, tingling or other Psychiatric Psychiatric: Denies anxiety, depression, homicidal ideation, suicidal ideation or other Endocrine Endocrinology: Denies change in body appearance, cold intolerance, excessive sweating, heat intolerance, polydipsia, polyuria or other Hematologic/Lymphatic Hematologic/Lymphatic: Denies anemia, easy bleeding, easy bruising, lymphadenopathy or other Allergic/Immunologic Allergic/Immunologic: Denies rhinitis, hives, eczemia, asthma or other Vital Signs Vital Signs Vital Signs: 03/31/23 09:58 03/31/23 13:25 03/31/23 15:00 Temperature 98.3 F Temperature Source Oral Pulse Rate 92 141 H 143 H Respiratory Rate 19 H 18 15 Blood Pressure 180/142 H 147/82 H 164/148 H Blood Pressure Mean 154 103 153 Pulse Ox 97 94 91 Oxygen Delivery Method Room Air Room Air 03/31/23 17:00 03/31/23 20:01 Temperature Temperature Source Pulse Rate 137 H 139 H Respiratory Rate 20 H 18 Blood Pressure 108/70 158/111 H Blood Pressure Mean 82 126 Pulse Ox 94 94 Oxygen Delivery Method Room Air Weight Weight: 102.7 kg Body Mass Index (BMI) 40.1 Physical Exam Const alert, oriented x3, no apparent distress and well nourished; Negative for average body habitus or healthy appearing Constitutional Narrative: Upper middle-aged, white female, morbidly obese, appears much older than stated age, significant tremor noted, sons at bedside, appears nontoxic but does appearchronically ill General Appearance: cooperative HEENT normocephalic, head/scalp atraumatic, hearing grossly normal bilaterally and moist oral mucous membranes HEENT Narrative: Mallampati 3, no thrush Eyes PERRL and EOMs intact bilaterally Eyes Narrative: No scleral icterus Neck no lymphadenopathy and supple Neck Narrative: Neck is short and thick, trachea midline Resp normal respiratory effort, no retractions, no use of accessory muscles and clearto auscultation bilaterally Auscultation: Negative for rales, rhonchi or wheezes Cardio S1 normal heart sound, S2 normal heart sound, no murmurs, no rub, no gallops andno clicks Cardio Narrative: Irregularly irregular rhythm, tachycardic GI normal to inspection, nondistended, normoactive bowel sounds, soft to palpation and non-tender GI Narrative: Protuberant abdomen Extremity no clubbing, cyanosis or edema Skin no rashes or lesions noted, no wounds, skin turgor normal, no jaundice, no petechiae and no mottling Neuro oriented x3, moves all extremities and no focal motor deficits Neuro Narrative: Severe resting tremor noted on exam, masked facies, bradykinesia, speech is somewhat slow and deliberate however intelligible and appropriate Sensorium / Orientation: awake and alert Psych Psych Narrative: Affect is flattened mood seems depressed Results Lab / Micro Data 03/31/23 10:20 03/31/23 10:20 Labs: Laboratory Results - last 24 hr 03/31/23 10:20: WBC 6.3, RBC 4.97, Hgb 12.5, Hct 40.5, MCV 81.5, MCH 25.2 L, MCHC 30.9 L, RDW Std Deviation 43.9, RDW Coeff of Rico 14.6, Plt Count 153, Immature Gran % (Auto) 0.500, Neut % (Auto) 71.9 H, Lymph % (Auto) 14.0 L, [place] % (Auto) 11.0 H, Eos % (Auto) 2.1, Baso % (Auto) 0.5, Absolute Neuts (auto) 4.5,Absolute Lymphs (auto) 0.88, Nucleated RBC % 0, Differential Comment SCANNED, Plt Morphology Comment LARGE, Sodium 142, Potassium 4.0, Chloride 113 H, Carbon Dioxide 23.0, Anion Gap 6, BUN 28 H, Creatinine 1.04 H, Estim Creat Clear Calc 61.74, Est GFR (MDRD) Af Amer 68, Est GFR (MDRD) Non-Af 56 L, BUN/Creatinine Ratio 26.9 H, Glucose 121 H, Calcium 9.9 03/31/23 11:37: Urine Color Yellow, Urine Clarity Sl. Cloudy, Urine pH 5.0, Ur Specific [place] 1.025, Urine Protein 100 H, Urine Glucose (UA) Normal, Urine Ketones 15 H, Urine Occult Blood Negative, Urine Nitrite Negative, Urine Bilirubin Negative, Urine Urobilinogen Normal, Ur Leukocyte Esterase Negative, Urine RBC 0 SEEN, Urine WBC 0 SEEN, Ur Squamous Epith Cells 0 SEEN, Urine Bacteria 0 SEEN, Urine Mucus 0 SEEN Rhythm Strip Rhythm Strip: Sinus Rhythm Rate: 90 Ectopy: None Imaging Radiology Impression Hip/Pelvis X-Ray 03/31/23 10:36 IMPRESSION: Degenerative changes of the right hip joint. Narrowing of the symphysis pubis. Electronically Signed: Thor Escalona MD at 12:14 EST , Knee X-Ray 03/31/23 10:36 IMPRESSION: Degenerative arthrosis. Electronically Signed: Thor Escalona MD at 12:15 EST , Chest X-Ray 03/31/23 13:38 IMPRESSION: Normal x-ray examination of the chest. Electronically Signed: Thor Escalona MD at 14:34 EST , Assessment & Plan Assessment/Plan (1) Multiple falls: (2) Contusion of lower back: (3) Atrial tachycardia: (4) Elevated serum creatinine: PLAN: Plan Atrial tachycardia -Appears to be a flutter with 2-1 block -Adenosine given the emergency department and notable flutter waves were identified -Patient with multiple medication allergies including calcium channel blockers and beta-blockers -Case discussed with cardiology and they recommended amiodarone bolus and drip -Start heparin drip -Check echocardiogram -Check TSH -Check a.m. BMP with magnesium and phosphorus -Cardiology consultation Elevated serum creatinine secondary to dehydration -Specific gravity of urine was 1.025 -Baseline serum creatinine appears to run between 0.55 and 0.85 -Serum creatinine presentation was 1.04 -1 L IV fluids given the emergency department -Repeat lab in a.m. Debility/falls -Patient with marked debility and multiple falls -Likely needs placement however patient seems to be resistant -Consult PT/OT -Case management/social work consultation for discharge planning assistance Back contusion -Continue nightly Flexeril -As needed Tylenol -Patient was given Motrin emergency department but I had to do this on a regularbasis -Did tolerate morphine so we will give oxycodone 5 mg every 6 hours as needed tosee if she tolerates this -As needed antiemetics available if this does make the patient nauseous Parkinson's disease -Patient's been on multiple medications which she has not tolerated -Tremors severe and likely contributing to her falls -PT/OT consultation -Recommend ongoing outpatient neurological follow-up Hypertension -Continue home amlodipine -Continue home clonidine DM-2 -Patient states she has not been taking her Tresiba at home as her blood sugars have been running quite low -Fasting sugar off Tresiba was 112 on admission -Will hold basal insulin for now -SSI -Carb controlled diet -Accu-Cheks as ordered -Check hemoglobin A1c Overactive bladder -Patient is on oxybutynin which may be contributing to her falls -Discussed this with patient as I am inclined to discontinue it and she stated it was not even working anyway -Will hold for now and recommend likely complete discontinuation at discharge Hyperlipidemia -Patient is intolerant of statins -Continue dietary modifications JOSIE -Patient was not tolerant of a mask however she states she is figure out a way to sleep without having significant oxygenation issues on her side with something under her chin to hold her jaw closed -As needed oxygen nocturnally for any hypoxia Morbid obesity -BMI is 40.1 -Recommend weight loss -Complicates treatment, prognosis, outcomes History of anxiety and depression -Patient seems depressed on admission -Patient is not on any chronic medication for this and would hold off on this for now with her multiple medication allergies DVT prophylaxis -Patient currently on heparin drip CODE STATUS -DNR CCA with no intubation as confirmed with family at bedside at the time of admission Charges/Coding Visit Charges Inpatient E&M: 05870 Init Hosp L2 03/31/232121 <Electronically signed by Noa Lao DO> Cosigner Signature (if applicable): CC: Dr. Noa Lao DO; Dr. Sagrario Perez MD~ Signed [facility] Work Phone: 1(590) 325-425901-30-2024 Discharge summary Author Juaquin Burris [facility] March 31, 2023 8:12pm Note Date/Time March 31, 2023 1 0:41am [facility] Medical Records Department [address] [place] [address] Emergency Department Summary 03/31/23 MR#: [id number] Acct: [id number] Name: TIFFANIE VILLAFANA Rep #:[id number] : 1955 67 From: Luis Mcdonald MD PCP: Dr. Sagrario Perez MD Status:RE G ER Location: ED HPI HPI - Fall History of Present Illness Chief Complaint: Fall Informant: patient Narrative Narrative: 67-year-old female presents by EMS because of multiple falls in this past week, 2 or 3 according to the patient. She states the last fall happened several daysago, but today her right low back which has been hurting since one of the falls,was hurting so bad that she was unable to even raise up out of bed. 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 She was living alone but then upgraded to a "disability apartment" and has been doing very poorly for the lastweek there. She states that as far as injuries she hurt her right low back/hip area pointing to her buttock, and her right knee. She denies pain elsewhere anddenies hitting her head at any point time or headache. No recent illness. [facility] Medical History Anxiety Asthma Depression Diabetes History of left heart catheterization Hyperlipidemia Hypertension Non-smoker Tremor Home Medications amlodipine 10 mg tablet 1 tab PO DAILY BLOOD PRESSURE 05/27/17 [History Last Taken 05/27/17 16:00] clonidine HCl 0.3 mg tablet 1 tab PO BID BLOOD PRESSURE 05/27/17 [History Last Taken Unknown] cyclobenzaprine 10 mg tablet 10 mg PO QHS PRN LEG CRAMPS 05/27/17 [History Last Taken Unknown] metformin 1,000 mg tablet 1,000 mg PO BID DIABETES 05/27/17 [History Last Taken 05/27/17 16:00] albuterol sulfate 2.5 mg/3 mL (0.083 %) solution for nebulization 2.5 mg inhalation Q4H PRN SHORTNESS OF BREATH/WHEEZING 05/28/17 [History Last Taken Unknown] albuterol sulfate 90 mcg/actuation aerosol inhaler (Ventolin HFA) 2 puff inhalation Q4H PRN SHORTNESS OF BREATH/WHEEZING 05/28/17 [History Last Taken Unknown] buspirone 30 mg tablet 30 mg PO BID ANXIETY 05/28/17 [History Last Taken Unknown] ibuprofen 800 mg tablet 800 mg PO TID PRN Pain Score 1-12/0911/18/19 [History Last Taken Unknown] insulin degludec 200 unit/mL (3 mL) subcutaneous pen (Tresiba FlexTouch U-200 insulin) 56 unit subcut QHS DIABETES 09/21/20 [History Last Taken Unknown] aspirin 81 mg tablet,delayed release (Adult Low Dose Aspirin) 81 mg PO DAILY [facility] 03/31/23 [History Last Taken Unknown] oxybutynin chloride 15 mg tablet,extended release 24 hr 15 mg PO BID OVERACTIVE BLADDER 03/31/23 [History Last Taken Unknown] Allergy/AdvReac Type Severity Reaction Status Date / Time adhesive tape Allergy Other Verified 09/21/20 20:13 cephalexin monohydrate Allergy Other Verified 09/21/20 20:13 [From Keflex] ciprofloxacin [From Cipro] Allergy Hives Verified 09/21/20 20:13 ciprofloxacin HCl Allergy Hives Verified 09/21/20 20:13 [From Cipro] citalopram hydrobromide Allergy Unknown Verified 09/21/20 20:13 [From Celexa] clarithromycin [From Biaxin] Allergy Unknown Verified 09/21/20 20:13 codeine Allergy Unknown Verified 09/21/20 20:13 diltiazem HCl [From Cardizem] Allergy Unknown Verified 09/21/20 20:13 fluoxetine HCl [From Prozac] Allergy Unknown Verified 09/21/20 20:13 fluticasone Allergy Swelling Verified 09/21/20 20:13 [From Advair Diskus] fluticasone propionate Allergy Other Verified 09/21/20 20:13 [From Advair Diskus] hydrochlorothiazide Allergy Unknown Verified 09/21/20 20:13 [From Hyzaar] ipratropium bromide Allergy Unknown Verified 09/21/20 20:13 [From Atrovent] labetalol Allergy Rash Verified 09/21/20 20:13 lamotrigine [From Lamictal] Allergy Unknown Verified 09/21/20 20:13 latex Allergy Unknown Verified 09/21/20 20:13 liraglutide [From Victoza] Allergy Unknown Verified 09/21/20 20:13 losartan potassium Allergy Unknown Verified 09/21/20 20:13 [From Hyzaar] meloxicam [From Mobic] Allergy Other Verified 09/21/20 20:13 nitrofurantoin Allergy Hives Verified 11/18/19 13:15 [From Macrobid] nitrofurantoin Allergy Hives Verified 11/18/19 13:15 macrocrystalline [From Macrobid] Penicillins Allergy Rash Verified 09/21/20 20:13 quetiapine fumarate Allergy Unknown Verified 09/21/20 20:13 [From Seroquel] salmeterol Allergy Swelling Verified 09/21/20 20:13 [From Advair Diskus] salmeterol xinafoate Allergy Other Verified 09/21/20 20:13 [From Advair Diskus] sertraline HCl [From Zoloft] Allergy Unknown Verified 09/21/20 20:13 simvastatin [From Zocor] Allergy Unknown Verified 09/21/20 20:13 topiramate [From Topamax] Allergy Unknown Verified 09/21/20 20:13 verapamil HCl Allergy Unknown Verified 09/21/20 20:13 [From Covera-HS] zonisamide [From Zonegran] Allergy Shortness Verified 09/21/20 20:13 of breath acetaminophen [From Lortab] AdvReac Nausea Verified 09/21/20 20:13 hydrocodone bitartrate AdvReac Nausea Verified 09/21/20 20:13 [From Lortab] ramipril [From Altace] AdvReac Laryngospas Verified 09/21/20 20:13 ms sulfamethoxazole AdvReac Unknown Verified 09/21/20 20:13 [From Septra] trimethoprim [From Septra] AdvReac Unknown Verified 09/21/20 20:13 Surgical History History of bladder repair surgery History of carpal tunnel release History of cholecystectomy History of hysterectomy Social History Smoking Status: Never smoker ROS ROS ED Constitutional Constitutional ED: Denies chills or fever(s) Eyes Eyes: Denies change in vision or diplopia ENT ENT ED: Denies rhinorrhea or sore throat Cardiovascular Cardiovascular: Denies chest pain or palpitations Respiratory/Chest Respiratory/Chest: Denies cough or dyspnea Gastrointestinal Gastrointestinal: Denies abdominal pain, diarrhea, nausea or vomiting Genitourinary Genitourinary ED: Denies dysuria or hematuria Musculoskeletal Musculoskeletal: Reports back pain and extremity pain; Denies neck pain Integumentary Denies abscess or rash Neurologic Neurologic: Reports abnormal gait and tremor(s); Denies confusion, headache(s), paresthesias or radicular pain Psychiatric Psychiatric: Denies suicidal ideation or suicidal thoughts EXAM Physical Exam Const Vital Signs: 03/31/23 09:58 Temperature 98.3 F Temperature Source Oral Pulse Rate 92 Respiratory Rate 19 H Blood Pressure 180/142 H Blood Pressure Mean 154 Pulse Ox 97 Oxygen Delivery Method Room Air Positive well nourished, well developed and obese Constitutional Narrative: Incontinent of urine in the bed General Appearance ED: well developed and NAD Nutritional Appearance: obese HEENT Reports moist mucous membranes normocephalic and atraumatic Eyes PERRL and EOMs intact bilaterally Neck full ROM and supple Resp normal respiratory effort and clear to auscultation bilaterally Cardio regular rate, regular rhythm and no murmurs GI non-tender and non-distended Auscultation: normoactive bowel sounds Palpation: soft Back/Spine no CVA tenderness Back/Spine Narrative: Also tender in the right buttock/sacrum. No crepitance. No ischial tuberosity tenderness. General Back: other limited ROM Cervical Spine: Negative for cervical spine tenderness Thoracic Spine / Upper Back: Negative for thoracic spinal tenderness Lumbar Spine / Lower Back: paraspinal muscle tenderness right and straight leg raise negative bilaterally; Negative for lumbar spinal tenderness Extremity normal to inspection Extremity Narrative: Diffuse right knee tenderness no signs of trauma except for some healing/scabbedabrasions that are distal to the knee. No effusion. All ligaments are stable with short endpoints. No other specific joint tenderness or limited range of motion. Specifically, when the right thigh is flexed, she has no groin pain with internal and external rotation at the right hip. General Extremety ED: Yes tenderness; Negative for edema or pulses abnormal General Extremity: Negative for edema or pulses abnormal Neuro oriented x3, CN's II-XII intact bilaterally and no sensory deficits noted Neuro Narrative: Diffusely tremorous while resting. Able to move extremities and follow commands. Normal speech. Newcomb Coma Scale: document GCS findings Spontaneous Obeys Commands Oriented 15 Sensorium / Orientation: awake and alert Motor Exam: strength 5/5 throughout Psych Mood & Affect: anxious Skin no rashes or lesions noted and no wounds MDM MDM MDM Narrative Medical decision making narrative: X-rays of the right hip and pelvis as well as the right knee were obtained wherethe patient is having pain, 3 views of the hip and pelvis negative for any acutefracture my interpretation, 4 views of the right knee on my interpretation negative for acute fracture as well. Workup medically is otherwise unremarkableexcept for some mild dehydration, urine was obtained that she was incontinent here and does not show evidence of infection. After pain medication, patient states her pain is completely gone, she is able to stand up, using a rollator/walker, she struggled getting to standing but once she was up she did okay according to nursing. Patient understands that if she cannot function may need OT and PT evaluations for possible nursing of short-term rehab. She is adamant that she does not want to come in for placement. She understands that going home with this tremor that apparently has been very difficult to treat, she is at risk for future falls, and she could injure herself worse. She statesshe understands this and her plan is to have her granddaughter stay with her forshort period of time to try to help her at this time. She appears to have the capacity to make this decision, she understands and I feel she can make a choicethat is congruent with her values and has the ability to make this decision herself. Lab Data Attestation: I reviewed the patient's lab results. Labs: Laboratory Results - last 24 hr 03/31/23 03/31/23 10:20 11:37 WBC 6.3 RBC 4.97 Hgb 12.5 Hct 40.5 MCV 81.5 MCH 25.2 L MCHC 30.9 L RDW Std Deviation 43.9 RDW Coeff of [place] 14.6 Plt Count 153 Immature Gran % (Auto) 0.500 Neut % (Auto) 71.9 H Lymph % (Auto) 14.0 L [place] % (Auto) 11.0 H Eos % (Auto) 2.1 Baso % (Auto) 0.5 Absolute Neuts (auto) 4.5 Absolute Lymphs (auto) 0.88 Nucleated RBC % 0 Differential Comment SCANNED Plt Morphology Comment LARGE Sodium 142 Potassium 4.0 Chloride 113 H Carbon Dioxide 23.0 Anion Gap 6 BUN 28 H Creatinine 1.04 H Estim Creat Clear Calc 61.74 Est GFR (MDRD) Af Amer 68 Est GFR (MDRD) Non-Af 56 L BUN/Creatinine Ratio 26.9 H Glucose 121 H Calcium 9.9 Urine Color Yellow Urine Clarity Sl. Cloudy Urine pH 5.0 Ur Specific [place] 1.025 Urine Protein 100 H Urine Glucose (UA) Normal Urine Ketones 15 H Urine Occult Blood Negative Urine Nitrite Negative Urine Bilirubin Negative Urine Urobilinogen Normal Ur Leukocyte Esterase Negative Urine RBC 0 SEEN Urine WBC 0 SEEN Ur Squamous Epith Cells 0 SEEN Urine Bacteria 0 SEEN Urine Mucus 0 SEEN Radiography Diagnostic Testing: Clinical Impression(s) from Imaging Studies Hip/Pelvis X-Ray 03/31/23 10:36 IMPRESSION: Degenerative changes of the right hip joint. Narrowing of the symphysis pubis. Electronically Signed: Thor Escalona MD at 12:14 EST , Rhythm Strip Rhythm Strip: Sinus Rhythm Rate: 90 Ectopy: None Discharge Plan Triage Chief Complaint: Fall ED Provider: Luis Mcdonald Dx/Rx/DC Orders Clinical Impression: Contusion of lower back, Tremor, Multiple falls Instructions: Falls Prevent Use Cane Walker Prescriptions: No Action clonidine HCl 0.3 MG tablet 1 tab PO BID amlodipine 10 MG tablet 1 tab PO DAILY metformin 1,000 MG tablet 1,000 mg PO BID cyclobenzaprine 10 MG tablet 10 mg PO QHS PRN (Reason: LEG CRAMPS) albuterol sulfate 2.5 MG/3 ML solution for nebulization 2.5 mg inhalation Q4H PRN (Reason: SHORTNESS OF BREATH/WHEEZING ) buspirone 30 MG tablet 30 mg PO BID albuterol sulfate [Ventolin HFA] 1 INHALER inhaler 2 puff inhalation Q4H PRN (Reason: SHORTNESS OF BREATH/WHEEZING ) ibuprofen 800 MG tablet 800 mg PO TID PRN (Reason: Pain Score 1-10/10) insulin degludec [Tresiba FlexTouch U-200] 200 unit/mL (3 mL) Insulin Pen 56 unit SUBCUT QHS oxybutynin chloride 15 mg tablet extended release 24hr 15 mg PO BID aspirin [Adult Low Dose Aspirin] 81 mg tablet,delayed release (DR/EC) 81 mg PO DAILY Primary Care Provider: Sagrario Perez Referrals: Sagrario Perez MD [Primary Care Provider] - As soon as possible (And/or your neurologist) Disposition Disposition: Home, Self Care What to do if you have Problems For any increased pain, shortness of breath, bleeding, nausea or vomiting, chestpain, or any unexpected problems, contact your Primary Care Provider. Call [facility] ([phone]) or report to the closest Emergency Room. Call 911 if necessary. 03/31/23 1308 <Electronically signed by Luis Mcdonald MD> Cosigner Signature (if applicable): CC: Dr. Sagrario Perez MD ~ Signed ADDENDUM by Dr. Luis Mcdonald MD on 03/31/23 at 1634 Patient was to be discharged, and upon getting discharged her vital signs it wasnoted that her heart rate was 140. She was not this tachycardic initially. I went to reevaluate her she said that she was in no pain, still had her tremor which is persistent, and states "I do not feel right" but she denies any chest discomfort, dyspnea, headache, focal neurologic symptoms, palpitations/tachycardia. She had some nausea earlier that is gone. Her heart rate is in the 140-150 range and regular, tachycardic. She appears well and similar to how she had been clinically otherwise she was up and walking to the bathroom earlier. We did an EKG, it appears to show sinus tachycardia but thereis a lot of artifact due to her tremor. And considering possibility of A-fib/a flutter, we gave her adenosine 6 mg which she tolerated well without side effector reaction, and again very difficult to tell if she had underlying atrial fibrillation or atrial flutter due to her tremor artifact, however I think this is unlikely looking at the rhythm strips. It did not break any dysrhythmia, shecontinued to have tachycardia after the medication wore off in a short period oftime. She did develop some neck discomfort which we treated with a roll of towel behind her neck and that helped, and some nausea which we retreated. I given her a liter of fluid. However she has a very small vein and IV in her hand, and is going in very slowly. After this liter fluid she can be reevaluated, she is still telling nursing and family that she wants to go home does not want to stay in the hospital. At this point she tells me that she has had diarrhea for the last 3 days and has been having very little to eat or drink, she has been very nauseated but not vomiting. 03/31/23 1634<Electronically signed by Luis Mcdonald MD> Cosigner Signature (if applicable): cc: Dr. Sagrario Perez MD ~* Signed ADDENDUM by Dr. Luis Mcdonald MD on 03/31/23 at 1634 2 view chest x-ray also performed, my interpretation normal radiology in agreement. 03/31/231633<Electronically signed by Luis Mcdonald MD> Cosigner Signature (if applicable): cc: Dr. Sagrario Perez MD ~* Signed ADDENDUM by Dr. Luis Mcdonald MD on 03/31/23 at 1651 In addition to the above, it is also notable that we considered trying to slow the patient's heart rate down with medications, which may also help determine ifshe was in atrial fibrillation or atrial flutter. However, the patient has previously documented reactions that she verified to verapamil, diltiazem, metoprolol, and labetalol. I do not need she needs to be subjected to the risks of antidysrhythmics like amiodarone right now. We discussed also attempting to sedate her and cardiovert her, she states she has had sedatives in the past thatit made her stop breathing and she does not want undertake that risk which I understood. Therefore at this time we are doing IV fluids treating dehydration empirically. 03/31/231650<Electronically signed by Luis Mcdonald MD> Cosigner Signature (if applicable): cc: Dr. Sagrario Perez MD ~* Signed ADDENDUM by Dr. Juaquin Burris MD on 03/31/23 at 2011 Patient was turned over to me pending IV fluids. She got the liter and which took some time. But her heart rate has not changed. It is stayed about 1 37-1 41 the entire time. I reviewed her papers when she was given adenosine. In some areas it looks like flutter waves come through. But it is not completely classic. However, her consistency of heart rate and regularity makes me suspicious this is actually flutter with 2-1 block. But she is allergic to almost all medicines we normally use. I discussed the case with cardiology, . He recommended amiodarone drip and also heparin. I discussed case with the hospitalist who will put in these orders and they will do them on the floor. I did talk with patient again. She finally did agree to come in. She is also been getting intermittent more weakness and falls recently. Which makes me wonder if she has been going in and out of flutter. She does states she had something like this many years ago in [place]. They were trying to treat it but it either went away or they could not treat it and she went home. She can give no more details than those nonspecific generalities. 03/31/232011<Electronically signed by Juaquin Burris MD> Cosigner Signature (if applicable): cc: Dr. Sagrario Perez MD ~* Signed [facility] Work Phone: 1(955) 812-950110-30-2023 Miscellaneous Notes* Telephone Encounter - Noa Garcia Ma - 12/29/2022 9:53 AM EDT Pt notified. Noa Garcia Ma * Telephone Encounter - Danielle Benedict APRN.NOVELTIES SALES REPRESENTATIVE - 12/29/2022 9:31 AM EDT For low blood sugars noted at home recommend resuming Tresiba at a decreased dose of 10 units dailyat bedtime. Restart today. Recommend 3 meals during the day and a bedtime snack. Meals do not have to be large, but needs to be eating regularly throughout the day. She has an appointment scheduled for this Thursday. Hemoglobin A1C (%) Date Value 12/26/2022 6.2 08/19/2022 5.9 01/15/2021 6.5 08/20/2020 6.1 Discussed with Sagrario Perez MD. documented [facility] History of Present illness Narrative* Danielle Benedict APRN.NOVELTIES SALES REPRESENTATIVE - 12/26/2022 10:36 AM EDT SUBJECTIVE: Shingrix Vaccine(1 of 2) Never done Hepatitis B Vaccine(1 of 3 - Risk 3-dose series) Never done RSV Vaccine(1 - 1-dose 60+ series) Never done Mammogram Screening due on 04/21/2019 Urine Albumin:Creatinine Ratio due on 01/15/2022 Dilated Retinal Exam due on 03/13/2022 Bone Density Screening Never done Advance Directive Discussion Never done Influenza Vaccine(1) due on 10/31/2022 HPI Tiffanie Villafana is a 67 year old female. 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 she reports [...] throat swelling Mobic [Meloxicam] Other: See Comments Colt like something squeezing heart Prozac [Fluoxetine * Shortness of Breath sob,chest pains Septra [Sulfamethox* GI Upset Seroquel [Quetiapin* Shortness of Breath Topamax [Topiramate] Other: See Comments gait instability and "felt stupid" Victoza [Liraglutid* Swelling throat swelling Zocor [Simvastatin] [...] by mouth twicedaily. WALKER ROLLATOR SEAT WITH 6" WHEELS - RED Ultra-light with seat if possible, if not please give lightest possible rollator with a seat. Please send to [facility]. omega-3 fatty acids 1,000 mg cap Take 4 capsules by mouth once daily. Patient reports she is taking4,000 mg daily amLODIPine (NORVASC) 10 mg tablet [...] daily. Dx: Other DM Code E11.40. Insulin [place], Disposable, (BD INSULIN PEN NEEDLE UF) 29 gauge x 1/2" ndle USE TO INJECT TWICE DAILY Aspirin [...] MANIC EPISODE NOS 11/05/2005 Bipolar affective disorder ([facility]) 09/12/2009 depression at this point; no recent manic episodes; noted flare up ofr auditory hallucinations Bipolar I disorder, single manic episode ([facility]) 11/05/2005 Carpal tunnel syndrome 11/05/2005 Bilateral DEPRESSIVE DISORDER NEC 11/05/2005 Diabetes mellitus type 2, insulin dependent ([facility]) DIABETES MELLITUS TYPE II-UNCOMPL 08/30/2000 Diverticulosis of [...] neuropathy, with long-term current use of insulin ([facility]) -ICD9: 250.60, 357.2, V58.67, ICD10: E11.40, Z79.4 [...] can help you adjust your medication doses Danielle Benedict, INSTRUCTOR TECHNICAL TRAINING.NOVELTIES SALES REPRESENTATIVE Medical Decision Making: Problems: Moderate: 1+ chronic illnesses with change Risk: Moderate: Drug management Medical Decision Making Level: 4 - Moderate documented in this encounterMem[facility]10-27-[facility]23 Instructions* Patient Instructions* Danielle Benedict APRN.CNS - 12/26/2022 10:28 AM EDT Do not take insulin for now. Continue to monitor your blood sugar. Keep a piece of candy or food with you in the event you have a low blood sugar. Let us know if blood glucose is running 250 or greater so we can help you adjust your medication doses documented in this encounterMemorial [facility]10-26-2023 Miscellaneous Notes* Telephone Encounter - Shannon Gonzalez LPN - 12/25/2022 4:56 PM EDT Patient notified of providers message and verbalized understanding. Patient states that CGM is new.She has only had it for 3 weeks and does not have a glucose meter to check it with. * Telephone Encounter - Danielle Benedict APRN.CNS - 12/25/2022 4:46 PM EDT His glucometer reading also low? May want to check if she has not done this * Telephone Encounter - Kassi Lo RN - 12/25/2022 4:22 PM EDT Spoke with patient. Given message from provider's office. Patient verbalizes understanding. Patientstates she has not been ill, no nausea, vomiting, diarrhea. She says she has no symptoms of low blood sugar but her CGM alarms keep showing low readings. She has not taken Insulin x 2 days. Scheduled appointment with Danielle LEE tomorrow. Patient is aware of lab orders. Unable to come today tohave them done. Kassi Lo RN * Telephone Encounter - Shannon Gonzalez LPN - 12/25/2022 4:11 PM EDT Attempted to contact patient but no answer. Left message for patient to call office and ask to speak to a nurse regarding low blood sugars * Telephone Encounter - Danielle Benedict APRN.ROSA - 12/25/2022 4:02 PM EDT Is she feeling unwell?. She is not [...] if willing ER for any concerning symptoms * Telephone Encounter - Krystle Brown RN - 12/25/2022 2:14 PM EDT Patient calls to report low blood sugar [...] not taken her tresiba for the past twodays. Patient has been eating foods such as [...] fruit and brought blood sugar up to the76. 10. FOOD: Currently Fruit but also cookies, crackers, apples with caramel, sandwich, milk, and sprite. 11. ALONE: yes Protocols used: Diabetes - Low Blood [id number] documented in this encounterMemorial [facility]08-31-2023 Miscellaneous Notes* Telephone Encounter - Concepción Raygoza LPN - 10/30/2022 9:28 AM EDT Rec'd completed and all faxed back. * Telephone Encounter - Sophia Heard - 10/29/2022 5:03 PM EDT Ramya from [employer] called to verify receipt of fax for a request of supplies for the patient. Please advise. Sophia Heard documented in this encounterMemorial [facility]08-09-2023 History of Present illness Narrative* Sagrario Perez MD - 10/08/2022 2:52 PM EDT This note was created using NoteWriter. Subjective Tiffanie Villafana is a 67 year old female. Patient presents with: 8 month follow up SUBJECTIVE: Tiffanie Villafana is a 67 year old year old [...] pain in toe after treated by Dr. Mooney. Rash noted. Sun screen helped with rash [...] by mouth twicedaily. WALKER ROLLATOR SEAT WITH 6" WHEELS - RED Ultra-light with seat if possible, if not please give lightest possible rollator with a seat. Please send to [facility]. Blood-Glucose Meter,Continuous (DEXCOM G7 EXPERIMENTAL PHYSICIST) [facility] [place] Use to check blood sugar at least four (4)times daily. Blood-Glucose Sensor (DEXCOM G7 SENSOR) gerard Apply new sensor every ten (10) days. omega-3 fatty acids 1,000 mg cap Take 4 capsules by mouth once daily. Patient reports she is taking4,000 mg daily carbidopa-levodopa (SINEMET) 25-100 mg per [...] daily. Dx: Other DM Code E11.40. Insulin [place], Disposable, (BD INSULIN PEN NEEDLE UF) 29 gauge x 1/2" ndle USE TO INJECT TWICE DAILY Aspirin [...] Height as of 07/05/21: 160 cm (5' 3"). Weight as of this encounter: 105.7 kg [...] in adult, unspecified whether serious comorbidity present ([facility]) E66.01 Z68.41 See below Above issues addressed [...] the date of the service which included [id number] patient care, completing clinical documentation, performing a medically appropriate examination, counseling and educating the patient/family/caregiver, and ordering medications, tests, or procedures. Sagrario Perez MD documented in this encounterMemorial [facility]06-27-2023 Miscellaneous Notes* Telephone Encounter - Helga Perez LPN - 08/26/2022 3:36 PM EDT Pt read message at 12:29 PM on 08/26/2022 with no response. Closing encounter. Helga Perez LPN * Telephone Encounter - Faith Raygoza APRN.ORE MINER BLASTING - 08/22/2022 12:58 PM EDT Should be short acting Sinemet. New prescription sent. If she needs short term supply sent to localpharmacy please let me know. * Telephone Encounter - Katy Martinez LPN - 08/22/2022 12:43 PM EDT Pt called in to let you know she just spoke with [facility] and they received the new prescription sent in to them on Sinemet and what the pt is being told you can not split the Extended Releasebecause it changes the medication. Pt concerned she is going to run out of medication. Please review and advise pt and pharmacy. Katy Martinez LPN documented in this encounterMemorial [facility]06-27-2023 Miscellaneous Notes* Telephone Encounter - Radha Bauman LPN - 08/26/2022 1:46 PM EDT [facility] was not going to send Carbidopa-Levodopa (sinemet) until PCP office called [phone]. Spoke to Sophia/pharmacist, needed to verify, there was a stop on Carbidopa- Levodopa CR 25-100. New prescription for Carbidopha-Levodopa (Sinemet) 25-100mg, Dispense 405 tablets, no refills, will be filled and mailed to Patient. Radha Bauman LPN documented in this encounterMemorial Health [facility]06-23-2023 Miscellaneous Notes* Telephone Encounter - Marisabel Iverson LPN - 08/22/2022 4:19 PM EDT Fax received from [facility] stating Medicare will not approve a new walker until 10/2024. PATIENT NOTIFIED OF SAME. Explained that she can pay for it out of pocket or check thrift stores. documented in this encounterMemorial [facility] [facility] of Past illness Narrative* [...] of this encounter (statuses as of 04/30/2023) [facility] History of Past illness Narrative* [...] of this encounter (statuses as of 05/08/2023) [facility] History of Past illness Narrative* [...] as of this encounter (statuses as of 05/11/2023) [facility] of Past illness Narrative* [...] as of this encounter (statuses as of 06/05/2023) [facility] History of Present illness Narrative* Billie Ochoa APRN.ORE MINER BLASTING - 08/22/2022 8:24 AM EDT SUBJECTIVE Tiffanie Villafana is a 67 year old female here today for a check up on her medical problems. Chief Complaint Patient presents with: Recheck: neuro visit for possible stroke HPI Tiffanie Villafana is a 67 year old female established [...] by mouth twicedaily. WALKER ROLLATOR SEAT WITH 6" WHEELS - RED Ultra-light with seat if possible, if not please give lightest possible rollator with a seat. Please send to [facility]. Blood-Glucose Meter,Continuous (DEXCOM G7 EXPERIMENTAL PHYSICIST) [facility] [place] Use to check blood sugar at least [...] daily. Dx: Other DM Code E11.40. Insulin [place], Disposable, (BD INSULIN PEN NEEDLE UF) 29 gauge x 1/2" ndle USE TO INJECT TWICE DAILY No [...] throat swelling Mobic [Meloxicam] Other: See Comments Colt like something squeezing heart Prozac [Fluoxetine * Shortness of Breath sob,chest pains Septra [Sulfamethox* GI Upset Seroquel [Quetiapin* Shortness of Breath Topamax [Topiramate] Other: See Comments gait instability and "felt stupid" Victoza [Liraglutid* Swelling throat swelling Zocor [Simvastatin] Swelling Zoloft [Sertraline * Intolerance Severe chest pain Already tried pravastatin and lovastatin and atorvastatin and had adverse effects with all Zonegran [Zonisamid* Shortness of Breath ACTIVE PROBLEM LIST Platelets Decreased ([facility]) - 08/22/2022 Unspecified Severe Protein-Calorie Malnutrition ([facility]) - 08/15/2022 Cortical Age-Related Cataract, Bilateral - 11/04/2018 Vitreous Floaters of Both Eyes - 11/03/2017 Punctate Keratitis of Both Eyes - 11/03/2017 Type 2 Diabetes Mellitus, With Long-Term Current Use of Insulin ([facility]) - 11/03/2017 Morbid Obesity With Bmi of 45.0-49.9, Adult ([facility]) - 04/21/2017 Impingement Syndrome of Left Shoulder [...] neuropathy, with long-term current use of insulin ([facility]) -ICD9: 250.60, 357.2, V58.67, ICD10: E11.40, Z79.4 (primary diagnosis) - Improving control - Stop metformin - Blood glucose monitoring on a continuous glucose monitoring schedule recommended due to issues with her tremors limiting ability to check sugars - DEXCOM G7 EXPERIMENTAL PHYSICIST - DEXCOM G7 SENSOR DEVICE - ALBUMIN/CREAT RATIO RND UR 2. Diabetes mellitus with insulin therapy (HCC) - ICD9: 250.00, V58.67, ICD10: E11.9, Z79.4 - DEXCOM G7 EXPERIMENTAL PHYSICIST - DEXCOM G7 SENSOR DEVICE 3. Fine motor impairment - ICD9: V49.89, ICD10: R29.818, R29.898 - WALKER ROLLATOR SEAT WITH 6" WHEELS - RED - DEXCOM G7 EXPERIMENTAL PHYSICIST - DEXCOM G7 SENSOR DEVICE 4. Generalized weakness - ICD9: 780.79, ICD10: R53.1 - WALKER ROLLATOR SEAT WITH 6" WHEELS - RED 5. TIA (transient ischemic attack) - ICD9: 435.9, ICD10: G45.9 Following with neuro, scheduled for MRI 6. Tremor, essential - ICD9: 333.1, ICD10: G25.0 - WALKER ROLLATOR SEAT WITH 6" WHEELS - RED - DEXCOM G7 EXPERIMENTAL PHYSICIST - DEXCOM G7 SENSOR DEVICE 7. Unspecified severe protein-calorie malnutrition (HCC) - ICD9: 262, ICD10: E43 Stable. - WALKER ROLLATOR SEAT WITH 6" WHEELS - RED - COMP METABOLIC PANEL 8. Class 3 severe obesity due to excess calories with serious comorbidity and body mass index (BMI)of 40.0 to 44.9 in adult (HCC) - ICD9: 278.01, V85.41, ICD10: E66.01, Z68.41 - WALKER ROLLATOR SEAT WITH 6" WHEELS - RED 9. Platelets decreased (HCC) [...] to improve, for Keep next scheduled appointment.. Billie Ochoa APRN-SHAQUILLE documented in this encounterMem[facility] Miscellaneous Notes* Telephone Encounter - Helga Perez LPN - 08/20/2022 7:46 AM EDT Fax received from [facility] to clarify medication directions for Carbidopa- Levodopa. Your last office note says take 1.5 mg PO TID and the prescription says take 1.5 tablets by mouth three times daily. Take 1.5 tablets at 7am, 1pm, 7pm. I pended the order for you if you could resend it! Thank you! Helga Perez LPN documented in this encounterMemorial [facility]06[facility] History of Present illness Narrative* Marianela Mooney - 08/15/2022 8:29 AM EDT Chief Complaint: [...] 6.8 03/01/2020 7.0 11/14/2019 7.5 PCP: Sagrario Perez MD PAST MEDICAL HISTORY Diagnosis Date Acute [...] daily. Dx: Other DM Code E11.40. Insulin [place], Disposable, (BD INSULIN PEN NEEDLE UF) 29 gauge x 1/2" ndle USE TO INJECT TWICE DAILY Aspirin [...] Status Change Mobic [Meloxicam] Other: See Comments Colt like something squeezing heart Prozac [Fluoxetine * Shortness of Breath sob,chest pains Septra [Sulfamethox* GI Upset Seroquel [Quetiapin* Shortness of Breath Topamax [Topiramate] Other: See Comments gait instability and "felt stupid" Victoza [Liraglutid* Swelling throat swelling Zocor [Simvastatin] [...] neuropathy, with long-term current use of insulin ([facility]) (primary encounter diagnosis) (L84) Callus (M79.89) Soft [...] underlying fibroma or other soft-tissue mass Marianela Mooney DPM Podiatry [address] [facility] [address] Dept: [phone] Dept * Seema Garcia RN - 08/15/2022 8:12 AM EDT Patient presents with: Right 2nd Toe - Established Patient, Wart documented in this encounterMemorial [facility]06-[facility] History of Present illness Narrative* Faith Raygoza APRN.SHAQUILLE - 08/14/2022 1:45 PM EDT Images from the original note were not included. [facility] Neurologic [place] Follow-up Visit Follow-up note August 05, 2022 HPI: Ms. Villafnaa presents today for a follow-up visit. Per [...] ts that she did not take medication POTATO SPOTTER. Exam notable for tremor to BUE and [...] 11/05/2005 Diabetes mellitus type 2, insulin dependent ([facility]) DIABETES MELLITUS TYPE II-UNCOMPL 08/30/2000 Diverticulosis of [...] daily. Dx: Other DM Code E11.40. Insulin [place], Disposable, (BD INSULIN PEN NEEDLE UF) 29 gauge x 1/2" ndle USE TO INJECT TWICE DAILY Aspirin [...] Status Change Mobic [Meloxicam] Other: See Comments Colt like something squeezing heart Prozac [Fluoxetine * Shortness of Breath sob,chest pains Septra [Sulfamethox* GI Upset Seroquel [Quetiapin* Shortness of Breath Topamax [Topiramate] Other: See Comments gait instability and "felt stupid" Victoza [Liraglutid* Swelling throat swelling Zocor [Simvastatin] [...] reports that she did not take medication POTATO SPOTTER. Exam notable for tremor to BUE and [...] (htn, hld, DM, sleep apnea). Faith Raygoza APRN.ORE MINER BLASTING I spent a total of 40 minutes on the date of the service which included preparing to see the patient, [id number] patient care, completing clinical documentation, obtaining and/or reviewing separately obtained history, performing a medically appropriate examination, counseling and educating the pat ient/family/caregiver, and ordering medications, tests, or procedures. documented in this encounterMemorial Health [facility]03-29-2023 History of Present illness Narrative* Selene Miller MA - 05/28/2022 8:23 AM EDT POPULATION HEALTH NAVIGATION OUTREACH Action/FYI NO ANSWER Rank By SearchT MESSAGE SENT ANNUAL [employer] WELLNESS MAMMOGRAM due on 04/21/2019 URINE ALBUMIN:CREATININE RATIO due on 01/15/2022 DILATED RETINAL EXAM due on 03/13/2022 Patient Identified by Name and : NO Outreach Outcome/Action Unable to reach patient: Phone number not valid / voicemail full Therma Flitet message sent Did you use a PCP [...] 28, 2022 8:23 AM documented in this encounterMemorial Health [facility]02-28-2023 Miscellaneous Notes* Telephone Encounter - Concepción Raygoza LPN - 04/29/2022 2:39 PM EST Last seen pcp 02/10/22. Next appt with pcp 10/08/22. * Telephone Encounter - Ceci Vitale Pss - 04/29/2022 11:18 AM EST Patient has [...] submitted Ceci Sanchez * Telephone Encounter - Radha Sanchez - 04/14/2022 2:46 PM EST Patient [...] patient. Radha Martinez Pss documented in this encounterMemorial Health [facility]02-09-2023 History of Present illness Narrative* Faith Raygoza APRN.ORE MINER BLASTING - 04/10/2022 1:45 PM EST Images from the original note were not included. [facility] Neurologic [place] Follow-up Visit Follow-up note April 10, 2022 HPI: Ms. Villafana is a right handed female who presents [...] time of previous visit with Dr. Waylon arredodno, pt will begin trial of low dose Sinemet 1/2 25-100mg tablet TID with meals. SE reviewed. Of note, pt reports she was unable to follow up with the movement disorder clinic since time of previousappointment as she is unable to travel father than [place]. Did discuss that if no improvement withinitiation [...] daily. Dx: Other DM Code E11.40. Insulin [place], Disposable, (BD INSULIN PEN NEEDLE UF) 29 gauge x 1/2" ndle USE TO INJECT TWICE DAILY Aspirin [...] Status Change Mobic [Meloxicam] Other: See Comments Colt like something squeezing heart Prozac [Fluoxetine * Shortness of Breath sob,chest pains Septra [Sulfamethox* GI Upset Seroquel [Quetiapin* Shortness of Breath Topamax [Topiramate] Other: See Comments gait instability and "felt stupid" Victoza [Liraglutid* Swelling throat swelling Zocor [Simvastatin] [...] which included preparing to see the patient, [id number] patient care, completing clinical documentation, obtaining and/or reviewing separately obtained history, performing a medically appropriate examination, counseling and educating the pat ient/family/caregiver, and ordering medications, tests, or procedures. documented in this encounterMemorial Health [facility]02-03-2023 Miscellaneous Notes* Telephone Encounter - Katy Martinez LPN - 04/04/2022 11:11 AM EST Spoke with pt and information listed below given. Pt verbalizes understanding. Katy Martinez LPN * Telephone Encounter - Sagrario Perez MD - 04/03/2022 5:41 PM EST Below noted. The following approved medication requests have been transmitted electronically. Requested Prescriptions Signed Prescriptions Disp Refills diclofenac, EC, (VOLTAREN) 75 mg EC tablet 180 tablet 1 Sig: Take 1 tablet by mouth twice daily. For pain/inflammation. Take with food. Authorizing Provider: SAGRARIO PEREZ MD * Telephone Encounter - Katy Martinez [...] and date of : Yes, Provider Dr. Perez Date 04/03/22 Time 2:31 pm Patient phones [...] you. Katy Martinez LPN documented in this encounterMemorial Health [facility]01-11-2023 Miscellaneous Notes* Telephone Encounter - Radha Bauman LPN - 03/12/2022 4:50 PM EST Duplicate request. Radha Bauman LPN documented in this encounterMemorial Health [facility]01-04-2023 Miscellaneous Notes* Telephone Encounter - Jannette Thorne LPN - 03/05/2022 11:48 AM EST Patient has [...] she is unable to travel father than [place]. Did discuss that if no improvement withinitiation of Sinemet, pt may need to return to the movement disorder clinic for further treatment options and she voiced understanding. Faith Raygoza APRN.ORE MINER BLASTING Last 2 Encounter Wt Readings: Date: Wt: 02/10/2022 110.7 kg (244 lb) 11/28/2021 110.2 kg (243 lb) Please advise. Thank you. Jannette Thorne LPN documented in this encounterMemorial Health [facility]12-12-2022 History of Present illness Narrative* Sagrario Perez MD - 02/10/2022 5:33 PM EST This note was created using NoteWriter. Subjective Tiffanie Villafana is a 66 year old female. Patient presents with: F/U 6 months SUBJECTIVE: Tiffanie Villafana is a 66 year old year old [...] 11/05/2005 Diabetes mellitus type 2, insulin dependent ([facility]) DIABETES MELLITUS TYPE II-UNCOMPL 08/30/2000 Diverticulosis of [...] daily. Dx: Other DM Code E11.40. Insulin [place], Disposable, (BD INSULIN PEN NEEDLE UF) 29 gauge x 1/2" ndle USE TO INJECT TWICE DAILY Aspirin [...] and control of BP and lipids. Sagrario Perez MD documented in this encounterMemorial Health [facility]10-10-2022 Miscellaneous Notes* Telephone Encounter - Faith Raygoza APRN.CNP - 12/09/2021 4:49 PM EDT Will continue [...] prescription sent to her [facility] in [place] for update script: Sinemet 25-100mg TID with [...] to be sent to [facility] in [place]. Please review and advise, Krystle Brown RN documented in this encounterMemorial Health [facility]09-29-2022 History of Present illness Narrative* Faith Raygoza APRN.CNP - 11/28/2021 1:45 PM EDT Images from the original note were not included. [facility] Neurologic [place] Follow-up Visit Follow-up note November 28, 2021 HPI: Ms. Villafana presents today for a follow-up visit. Per [...] tips. Was receiving muscle relaxant from Dr. Perez but stopped this and feels stiffness may [...] daily. Dx: Other DM Code E11.40. Insulin [place], Disposable, (BD INSULIN PEN NEEDLE UF) 29 gauge x 1/2" ndle USE TO INJECT TWICE DAILY Aspirin [...] Status Change Mobic [Meloxicam] Other: See Comments Colt like something squeezing heart Prozac [Fluoxetine * Shortness of Breath sob,chest pains Septra [Sulfamethox* GI Upset Seroquel [Quetiapin* Shortness of Breath Topamax [Topiramate] Other: See Comments gait instability and "felt stupid" Victoza [Liraglutid* Swelling throat swelling Zocor [Simvastatin] [...] she is unable to travel father than [place]. Did discuss that if no improvement withinitiation of Sinemet, pt may need to return to the movement disorder clinic for further treatment options and she voiced understanding. Faith Raygoza APRN.ORE MINER BLASTING I spent a total of 35 minutes on the date of the service which included preparing to see the patient, [id number] patient care, completing clinical documentation, obtaining and/or reviewing separately obtained history, performing a medically appropriate examination, counseling and educating the pat ient/family/caregiver, and ordering medications, tests, or procedures. documented in this encounterMemorial [facility]08-11-2022 Miscellaneous Notes* Telephone Encounter - Sagrario Perez MD - 10/10/2021 3:58 PM EDT Okayed * Telephone Encounter - Concepción Raygoza LPN - 10/10/2021 1:18 PM EDT Last seen EDITORIAL PROJECT MANAGER 06/10/21. Next appt with pcp 02/10/22. * [...] patient. Yasmine Caballero Pss documented in this encounterMemorial Health System [facility]07-19-2022 History of Present illness Narrative* Marianela Mooney - 09/17/2021 12:31 PM EDT FOLLOW UP [...] (H) 4.3 - 5.6 % Final Comment: [place] [employer] guidelines indicate that patients with HgbA1c in the range 5.7-6.4% are at increased risk for development of diabetes, and intervention by lifestyle modification may be beneficial. HgbA1c greater or equal to 6.5% is considered diagnostic of diabetes. PCP: Sagrario Perez MD PAST MEDICAL HISTORY Diagnosis Date Acute [...] daily. Dx: Other DM Code E11.40. Insulin [place], Disposable, (BD INSULIN PEN NEEDLE UF) 29 gauge x 1/2" ndle USE TO INJECT TWICE DAILY Aspirin [...] Status Change Mobic [Meloxicam] Other: See Comments Colt like something squeezing heart Prozac [Fluoxetine * Shortness of Breath sob,chest pains Septra [Sulfamethox* GI Upset Seroquel [Quetiapin* Shortness of Breath Topamax [Topiramate] Other: See Comments gait instability and "felt stupid" Victoza [Liraglutid* Swelling throat swelling Zocor [Simvastatin] [...] f/u as needed for callus debridement. Marianela Mooney DPM * Seema Garcia RN - 09/17/2021 [...] it is not painful. documented in this encounterMemorial Health [facility]07-19-2022 Instructions* Patient Instructions* Marianela Mooney - 09/17/2021 11:36 AM EDT You had callus of right 2nd toe. No ulceration beneath. If callus returns, call for an appointment documented in this encounterMemorial Health [facility]06-10-2022 History of Present illness Narrative* Munir Poole Jr., MD - 08/09/2021 2:36 PM EDT NEW PATIENT (CONSULT) HISTORY AND PHYSICAL EXAM PRIMARY CARE PHYSICIAN: Sagrario Perez MD REASON FOR CONSULT: Tremors REFERRING PHYSICIAN: Danielle Benedict APRN.NOVELTIES SALES REPRESENTATIVE CHIEF COMPLAINT: Tremors Consultation requested by Danielle Benedict APRN.NOVELTIES SALES REPRESENTATIVE for an opinion regarding chief complaint of Patient presents with: Tremor: hands, chin and sometimes legs and my final recommendations will be communicated back to the requesting physician by way of sharedmedical record or letter via US mail. HISTORY OF PRESENT ILLNESS: Tiffanie Villafana is a 66 year old female, BMI 43.29 kg/m2 with a PMH significant for that noted below. Pt was already establisehd with Ivan Andrade of [facility] and las saw on 10/09/20. Ms. Villafana is a right-handed 65 year old female [...] daily. Dx: Other DM Code E11.40. Insulin [place], Disposable, (BD INSULIN PEN NEEDLE UF) 29 gauge x 1/2" ndle USE TO INJECT TWICE DAILY Aspirin [...] 11/05/2005 Diabetes mellitus type 2, insulin dependent ([facility]) DIABETES MELLITUS TYPE II-UNCOMPL 08/30/2000 Diverticulosis of [...] which included preparing to see the patient, [id number] patient care, completing clinical documentation, obtaining and/or reviewing separately obtained history, performing a medically appropriate examination, counseling and educating the pat ient/family/caregiver, ordering medications, tests, or procedures, communicating with other HCPs (not separately reported), independently interpreting results (not separately reported) and communicating results to the patient/family/caregiver. documented in this encounterMemorial Health [facility]04-11-2022 History of Present illness Narrative* Danielle Benedict, INSTRUCTOR TECHNICAL TRAINING.NOVELTIES SALES REPRESENTATIVE - 06/10/2021 1:00 PM EDT Tiffanie Villafana is a 65 year old female seen [...] 6.5 08/20/2020 6.1 ) Follows with Dr. Mooney. Reports no current reflux or heartburn symptoms. [...] 01/15/2021 6.5 08/20/2020 6.1 ) Sees Dr Mooney, dairy manufacturing technologist. HTN: Without report ofheadache, chest pain, palpitations, [...] Abs Lymph 1.00 - 4.00 k/uL 2.83 [place]% % 7.7 Abs [place] <0.87 k/uL 0.92 (H) Eosin% % 2.9 [...] hypertension - ICD9: 401.9, ICD10: I10 At [facility], continue current treatment for now. Stable, continue to monitor. 7. Mixed hyperlipidemia - ICD9: 272.2, ICD10: E78.2 Notes taking fish oil 2G/day OTC 8. Tremor of hands and face - ICD9: 781.0, ICD10: R25.1 Danielle Benedict APRN.CNS Medical Decision Making: Problems: Moderate: 2+ stable chronic illnesses Data: Unique test(s) ordered: 3+ Risk: Moderate: Drug management Medical Decision Making Level: 4 - Moderate documented in this encounterMemorial Health [facility]08-27-2021 History of Present illness Narrative* Ca Ramirez, RT(R) - 10/26/2020 1:10 PM EDT Radiology Service Progress Note PATIENT NAME: Tiffanie Villafana DATE OF SERVICE: October 26, 2020 TIME: 1:10 PM PATIENT IDENTITY VERIFICATION COMPLETED USING TWO (2) IDENTIFIERS: Name and Date of confirmedby patient verbally. FALL SCREENING: Has the patient had 2 falls in the last year or 1 fall with injury or currently using an Ambulatory Assistive Device (Walker, Cane, Wheelchair, Crutches, etc.)? Yes, Patient High Riskfor Falls What interventions were put in place to prevent falls during this visit? Instructed Patient to Callfor Help if Needed, Offered Assistance with Transfers/Clothing, Instructed Patient to Remain Seated(Not on Exam Table) Until Exam and Increased Observations by Caregivers PATIENT GENDER DATA: Female. status: : No status: NO. PATIENT RELEVANT IMPLANT DATA REVIEWED: Not Applicable RADIOLOGY DEPARTMENT: General X-ray: Exam(s) Completed: Lower Extremity X- Ray(s): Foot, Right PERIPHERAL IV DATA: Not applicable SIGNED BY: Ca Ramirez RT(R) October 26, 2020 1:10 PM documented in this encounterMemorial [facility]03-14-2017 History of Past illness Narrative* [...] of this encounter (statuses as of 06/10/2021) [facility] History of Past illness Narrative* [...] of this encounter (statuses as of 08/09/2021) [facility] of Past illness Narrative* [...] of this encounter (statuses as of 09/17/2021) [facility] of Past illness Narrative* [...] of this encounter (statuses as of 10/10/2021) [facility] of Past illness Narrative* [...] of this encounter (statuses as of 11/28/2021) [facility] of Past illness Narrative* [...] of this encounter (statuses as of 12/09/2021) [facility] of Past illness Narrative* [...] of this encounter (statuses as of 01/13/2022) [facility] of Past illness Narrative* [...] of this encounter (statuses as of 03/07/2022) [facility] of Past illness Narrative* [...] of this encounter (statuses as of 03/12/2022) [facility] of Past illness Narrative* [...] of this encounter (statuses as of 03/17/2022) [facility] of Past illness Narrative* [...] of this encounter (statuses as of 04/04/2022) [facility] Past illness Narrative* [...] of this encounter (statuses as of 04/10/2022) [facility] of Past illness Narrative* [...] of this encounter (statuses as of 04/29/2022) [facility] Past illness Narrative* [...] of this encounter (statuses as of 05/28/2022) [facility] of Past illness Narrative* [...] of this encounter (statuses as of 08/15/2022) [facility] of Past illness Narrative* [...] of this encounter (statuses as of 08/15/2022) [facility] illness Narrative* [...] of this encounter (statuses as of 08/20/2022) [facility] of Past illness Narrative* [...] of this encounter (statuses as of 08/22/2022) [facility] illness Narrative* [...] of this encounter (statuses as of 08/23/2022) [facility] illness Narrative* [...] of this encounter (statuses as of 08/26/2022) [facility] illness Narrative* [...] of this encounter (statuses as of 08/27/2022) [facility] Narrative* [...] of this encounter (statuses as of 09/18/2022) [facility] illness Narrative* [...] of this encounter (statuses as of 10/30/2022) [facility] [facility] of Past illness Narrative* [...] of this encounter (statuses as of 10/30/2022) [facility] History of Past illness Narrative* [...] of this encounter (statuses as of 12/26/2022) [facility] History of Past illness Narrative* [...] of this encounter (statuses as of 12/26/2022) [facility] History of Past illness Narrative* [...] of this encounter (statuses as of 12/29/2022) [facility] History of Past illness Narrative* [...] of this encounter (statuses as of 01/06/2023) [facility] Author Ethan Yip [facility] April 03, 2023 11:04am Note Date/Time April 03, 2023 1 0:57am [facility] Medical Records Department [address] [place] [address] Transfer to [facility] MR#: [id number] Acct: [id number] Name: TIFFANIE VILLAFANA Rep #:[id number] : 1955 67 From: Ethan torres MD PCP: Dr. Sagrario Perez MD Status:AD M IN Certification of patient admission REQUIRED AT TIME OF ADMISSION. I CERTIFY THAT POST-HOSPITAL ECF SERVICES ARE REQUIRED TO BE GIVEN ON AN IN-PATIENT BASIS BECAUSE OF THE ABOVE NAMED PATIENT'S NEED FOR HALFWAY CARE ON A CONTINUING BASIS FOR THE CONDITION(S) FOR WHICH HE/SHE WAS RECEIVING IN-PATIENT HOSPITAL SERVICES PRIOR TO HIS/HER TRANSFER TO THE F. 04/03/23 1104<Electronically signed by Ethan Yip MD> Diet Diet Order/Speech Therapy: 03/31/23 20:29 Diet: Cardiac: Calorie-Controlled Food consistency:: Regular Liquid Consistency:: Regular/Thin How many daily calories?: 1800 calorie Routine Orders/Code Status Routine Lab Work: CBC and BMP Code Status: DNRCC-A Wound(s) rt leg: Wound Type: scabbed area x2 Therapies Physical Therapy: Eval and Treat Occupational Therapy: Eval and Treat Problem/Diagnosis (1) Atrial flutter: Status: Acute Code(s): I48.92 - Unspecified atrial flutter (2) HTN (hypertension): Status: Chronic Code(s): I10 - Essential (primary) hypertension (3) Hyperlipidemia: Status: Chronic Code(s): E78.5 - Hyperlipidemia, unspecified Plan 1. Atrial tachycardia due to thyrotoxicosis/HTN/HLD ? On admission it appears to be flutter with a 2-1 block ? Adenosine was given in the ED department which identified the flutter waves ? Continue with the heparin drip, echo is pending ? T4 was high but T3 was normal, discussed with endocrinology they will see her in follow-up as an outpatient. Will continue with methimazole 40 mg p.o. daily for 5 days and then down to 20 mg p.o. daily with repeat lab work in 2 weeks ? Appreciate cardiology's assistance ? Continue with IV fluids ? Can resume her home blood pressure medications, will monitor make adjustments as necessary ? She is intolerant of statins 2. Parkinson's disease with debility and falls ? She is not on any Parkinson's medication secondary to significant side effectsincluding rash and anaphylaxis ? PT/OT ? Case management consult for discharge planning ? Continue with Flexeril and Benadryl which she says usually allows her to get some sleep but she was not able to sleep today ? Will give her nighttime dose of trazodone to see if this assists 3. DM2 ? We will hold her home medications ? Sliding scale insulin ? Accu-Cheks ACHS ? We will monitor make adjustments as necessary 4. Overactive bladder ? We will hold her oxybutynin as this is likely contributing to her falls ? Will discontinue on discharge 5. JOSIE ? She does not tolerate a CPAP mask 6. Anxiety/depression ? She does not take any medications as she has significant allergies to multipleother medications recommend continued outpatient follow-up DVT: Heparin drip Allergies/Procedures Done in Hospital Allergies adhesive tape Allergy (Verified 09/21/20 20:13) Other apple Allergy (Verified 04/02/23 10:17) Swelling RAW APPLES ONLY pt states she can have cooked apples/applesauce cephalexin monohydrate [From Keflex] Allergy (Verified 09/21/20 20:13) Other DIME SIZE SPOTS ON LEGS ciprofloxacin [From Cipro] Allergy (Verified 09/21/20 20:13) Hives ciprofloxacin HCl [From Cipro] Allergy (Verified 09/21/20 20:13) Hives citalopram hydrobromide [From Celexa] Allergy (Verified 09/21/20 20:13) Unknown clarithromycin [From Biaxin] Allergy (Verified 09/21/20 20:13) Unknown codeine Allergy (Verified 09/21/20 20:13) Unknown diltiazem HCl [From Cardizem] Allergy (Verified 09/21/20 20:13) Unknown fluoxetine HCl [From Prozac] Allergy (Verified 09/21/20 20:13) Unknown fluticasone [From Advair Diskus] Allergy (Verified 09/21/20 20:13) Swelling fluticasone propionate [From Advair Diskus] Allergy (Verified 09/21/20 20:13) Other hydrochlorothiazide [From Hyzaar] Allergy (Verified 09/21/20 20:13) Unknown ipratropium bromide [From Atrovent] Allergy (Verified 09/21/20 20:13) Unknown labetalol Allergy (Verified 09/21/20 20:13) Rash lamotrigine [From Lamictal] Allergy (Verified 09/21/20 20:13) Unknown latex Allergy (Verified 09/21/20 20:13) Unknown liraglutide [From Victoza] Allergy (Verified 09/21/20 20:13) Unknown losartan potassium [From Hyzaar] Allergy (Verified 09/21/20 20:13) Unknown meloxicam [From Mobic] Allergy (Verified 09/21/20 20:13) Other nitrofurantoin [From Macrobid] Allergy (Verified 11/18/19 13:15) Hives nitrofurantoin macrocrystalline [From Macrobid] Allergy (Verified 11/18/19 13:15) Hives Penicillins Allergy (Verified 09/21/20 20:13) Rash pineapple Allergy (Verified 04/02/23 10:17) Other *RAW PINEAPPLE* "mouth turns bloody and raw and then it goes through me bloody and raw" quetiapine fumarate [From Seroquel] Allergy (Verified 09/21/20 20:13) Unknown salmeterol [From Advair Diskus] Allergy (Verified 09/21/20 20:13) Swelling salmeterol xinafoate [From Advair Diskus] Allergy (Verified 09/21/20 20:13) Other sertraline HCl [From Zoloft] Allergy (Verified 09/21/20 20:13) Unknown simvastatin [From Zocor] Allergy (Verified 09/21/20 20:13) Unknown topiramate [From Topamax] Allergy (Verified 09/21/20 20:13) Unknown verapamil HCl [From Covera-HS] Allergy (Verified 09/21/20 20:13) Unknown zonisamide [From Zonegran] Allergy (Verified 09/21/20 20:13) Shortness of breath acetaminophen [From Lortab] Adverse Reaction (Verified 09/21/20 20:13) Nausea hydrocodone bitartrate [From Lortab] Adverse Reaction (Verified 09/21/20 20:13) Nausea ramipril [From Altace] Adverse Reaction (Verified 09/21/20 20:13) Laryngospasms sulfamethoxazole [From Septra] Adverse Reaction (Verified 09/21/20 20:13) Unknown trimethoprim [From Septra] Adverse Reaction (Verified 09/21/20 20:13) Unknown Procedures: 2-D Echocardiogram Type of Care/Length of Stay Estimated LOS: Convalescent Care Less Than 30 days Type of Care Needed: Skilled Rehab Potential: Good Prognosis: Good Additional Orders/Day of Discharge Day of Discharge: 04/03/23 Dietary and Speech Recommendations Dietitian Recommendations/Changes: continue cardiac, 1800 calorie controlled diet as tolerated w/ glucerna TID as needed until PO intake at meals improves Discharge Plan Admission Admit Date/Time: 03/31/23 19:57 Attending Provider: Ethan Yip Primary Care Provider: Sagrario Perez Consulting Providers: Dana Robles; Noa Lao Instructions Patient Instructions: Falls Prevent Use Cane Walker Discharge Orders/Prescriptions Prescriptions: New amiodarone 200 mg Tablet 200 mg PO BID 5 Days Qty: 0 0RF amiodarone 200 mg Tablet 200 mg PO DAILY 30 Days Qty: 0 0RF Rx Instructions: Start when BID amiodarone is completed Eliquis 5 mg Tablet 5 mg PO BID 30 Days Qty: 0 0RF methimazole 5 mg Tablet 40 mg PO DAILY 3 Days Qty: 24 0RF metoprolol tartrate 25 mg Tablet 25 mg PO BID 30 Days Qty: 0 0RF methimazole 10 mg tablet 20 mg PO DAILY 30 Days Qty: 60 0RF Continued clonidine HCl 0.3 MG tablet 1 tab PO BID amlodipine 10 MG tablet 1 tab PO DAILY cyclobenzaprine 10 MG tablet 10 mg PO QHS PRN (Reason: LEG CRAMPS) insulin degludec [Tresiba FlexTouch U-200] 200 unit/mL (3 mL) Insulin Pen 56 unit SUBCUT QHS Patient Comments: 03/31 has not taken for 3 days d/t hypoglycemia/anorexia oxybutynin chloride 15 mg tablet extended release 24hr 15 mg PO BID aspirin [Adult Low Dose Aspirin] 81 mg tablet,delayed release (DR/EC) 81 mg PO DAILY diphenhydramine HCl [Allergy (diphenhydramine)] 25 mg capsule 50 mg PO QHS diclofenac sodium 75 mg tablet,delayed release (DR/EC) 75 mg PO .COMPLEX Rx Instructions: 75 mg orally bid for 2 days, then none for 3 days; ibuprofen [IBU] 800 mg tablet 800 mg PO DAILY PRN (Reason: headache) Referrals / Follow Up: Sagrario Perez MD [Primary Care Provider] - As soon as possible (And/or your neurologist) Chris Simmons MD [Med Staff - Courtesy Staff] - Within 2 Weeks (She will need TSH, T3 and T4 drawn prior to visit) Marisol Gan PA [Med Staff - Adv Practice Prof] - 05/04/23 9:30 am Disposition Disposition (needs filled in before D/C Order can be placed): [facility] (2) HTN (hypertension) Qualifiers: Hypertension type: essential hypertension Qualified Code(s): I10 - Essential (primary) hypertension 04/03/23 1104 <Electronically signed by Ethan Yip MD> Cosigner Signature (if applicable): CC: Dr. Dana Robles MD; Dr. Noa Lao DO; Dr. Sagrario Perez MD ~ [facility] Work Phone: Discharge summary Author Ethan Yip [facility] April 03, 2023 11:47am Note Date/Time April 03, 2023 1 1:42am [facility] Medical Records Department [address] [place] [id number] Discharge Summary 04/03/23 1138 MR#: [id number] Acct: [id number] Name: TIFFANIE VILLAFANA Rep #:[id number] : 1955 67 From: Ethan torres MD PCP: Dr. Sagrario Perez MD Status:AD M IN Location: [place] [address] Providers Date of Admission: 03/31/23 Primary Care Physician: Dr. Sagrario Perez MD Consultations 03/31/23 20:29 Consult: Cardiology Routine Consulting Provider: Dana Robles Reason for Consult: atrial tachycardia EMERGENT Consult: No MD Notified: Yes Date Notified: 03/31/23 Time Notified: 20:04 Method of Notification: ED Physician Initiated Reason For Visit: AFIB WITH RVR, DEBILITY & FALLS Diagnosis Discharge Diagnosis (1) Atrial flutter: Status: Acute Code(s): I48.92 - Unspecified atrial flutter (2) HTN (hypertension): Status: Chronic Code(s): I10 - Essential (primary) hypertension Qualifiers: Hypertension type: essential hypertension Qualified Code(s): I10 - Essential (primary) hypertension (3) Hyperlipidemia: Status: Chronic Code(s): E78.5 - Hyperlipidemia, unspecified Medications at Discharge Home Medications amlodipine 10 mg tablet 1 tab PO DAILY BLOOD PRESSURE 05/27/17 clonidine HCl 0.3 mg tablet 1 tab PO BID BLOOD PRESSURE 05/27/17 cyclobenzaprine 10 mg tablet 10 mg PO QHS PRN LEG CRAMPS 05/27/17 insulin degludec 200 unit/mL (3 mL) subcutaneous pen (Tresiba FlexTouch U-200 insulin) 56 unit subcut QHS DIABETES 09/21/20 aspirin 81 mg tablet,delayed release (Adult Low Dose Aspirin) 81 mg PO DAILY HEART HEALTH 03/31/23 diclofenac sodium 75 mg tablet,delayed release 75 mg PO .COMPLEX arthritic pain 03/31/23 diphenhydramine HCl 25 mg capsule (Allergy (diphenhydramine)) 50 mg PO QHS insomnia and allergies 03/31/23 ibuprofen 800 mg tablet (IBU) 800 mg PO DAILY PRN headache 03/31/23 amiodarone 200 mg tablet 200 mg PO BID 5 days #0 tabs 04/03/23 amiodarone 200 mg tablet 200 mg PO DAILY 30 days #0 tabs 04/03/23 apixaban 5 mg tablet (Eliquis) 5 mg PO BID 30 days #0 tabs 04/03/23 methimazole 10 mg tablet 20 mg (2 x 10 mg) PO DAILY 30 days #60 tabs 04/03/23 methimazole 5 mg tablet 40 mg (8 x 5 mg) PO DAILY 3 days #24 tabs 04/03/23 metoprolol tartrate 25 mg tablet 25 mg PO BID 30 days #0 tabs 04/03/23 Hospital Course Operations None Procedures 2-D Echocardiogram Summary of Care Provided Minutes Spent on Discharge: 33 Hospital Course: Per HPI: TIFFANIE VILLAFANA, is a 67 F who presented to the emergency department at [facility] on 03/31/2022 due to multiple falls over the last 2 to3 weeks. Patient has a history of Parkinson's disease but is not intolerant of multiple medications to treat her tremors. The last fall she had was several days ago but her right low back has been hurting since that point in time and today it was hurting so bad that she was unable to even rise up out of bed. Shelives alone and was recently upgraded to a "disability apartment" and had been doing poorly over the last week even in that setting. She was initially evaluated in the emergency department with imaging and lab work. Imaging was all negative for any acute process. Her CBC was unremarkable. Her chemistry panel showed mild elevation in BUN and creatinine at 28 and 1.04 and her urine did not show any signs of infection however she did appear to be dehydrated witha specific gravity of 1.025. She was given some IV fluids and the plan was to send her home as the patient did not want to be admitted for placement however she then developed acute tachycardia. On questioning, the patient think she mayhave had this about 20 years ago when she lived in [place] but has not had any issues with it since. EKG appears to be consistent with atrial flutter having 2- 1 block. Patient was given adenosine and flutter waves were noted. Patient has multiple allergies to many medications so the case was discussed with cardiology and they recommended initiating an amiodarone drip and starting her on a heparin drip. She is allergic to beta-blockers and calcium channel blockers. Patient does have multiple allergies which will make this complicated. Hospital Course: 1. 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 Cardiology was consulted and recommended initiating amiodarone as well as metoprolol. Given her atrial tachycardia and what appears to be flutter, shewas started on Eliquis at full dose. TSH was obtained and it was extremely low,so follow-up T4 and T3 were also obtained, the T4 was elevated but the T3 was normal. I discussed the case with endocrinology who recommended treatment with methimazole 40 mg p.o. daily for 5 days followed by 20 mg daily and they would like to see her in 2 weeks. Her thyroid peroxidase antibody is well as her thyroid-stimulating immunoglobulin are still pending. Prior to an appointment with endocrinology they will need to repeat a TSH as well as a free T3/T4 prior to her appointment. Cardiology recommends amiodarone 200 mg p.o. twice daily for 5 more days and then transition to 200 mg p.o. daily. I would closely monitor her heart rate, if her atrial flutter is due to her thyrotoxicosis, now that she is on methimazole, there is the potential of bottoming out her blood pressure if the metoprolol becomes unnecessary. Also given her falls she is on oxybutynin and this was discontinued on discharge. I discussed with her the plan for discharge today to the care home and she expressed understanding of the risk and benefits of discharge, she would like to go today. 2. Parkinson's disease, type 2 diabetes, JOSIE, anxiety, depression, overactive bladder chronic medical conditions which complicate her care. Her home medications were continued where appropriate. Her oxybutynin was discontinued on discharge. Weight / BMI Weight Weight: 223 lb 5.252 oz Body Mass Index (BMI) 39.5 ABG / Lab / Microbiology Data 04/03/23 06:55 04/03/23 06:55 Laboratory: Laboratory Results - last 24 hr 04/02/23 16:02: POC Glucose 185 H 04/02/23 22:12: POC Glucose 152 H 04/03/23 06:30: POC Glucose 120 H 04/03/23 06:55: WBC 5.8, RBC 4.29, Hgb 10.9 L, Hct 34.8 L, MCV 81.1, MCH 25.4 L,MCHC 31.3 L, RDW Std Deviation 43.9, RDW Coeff of Rico 14.9 H, Plt Count 121 L, MPV 12.3 H, Immature Gran % (Auto) 0.700, Neut % (Auto) 55.4, Lymph % (Auto) 23.9, [place] % (Auto) 14.6 H, Eos % (Auto) 4.9, Baso % (Auto) 0.5, Absolute Neuts (auto) 3.2, Absolute Lymphs (auto) 1.38, Nucleated RBC % 0, Sodium 144, Potassium 3.6, Chloride 116 H, Carbon Dioxide 25.0, Anion Gap 3 L, BUN 20 H, Creatinine 0.80, Estim Creat Clear Calc 79.64, Est GFR (MDRD) Af Amer 93, Est GFR (MDRD) Non-Af 77, BUN/Creatinine Ratio 25.1 H, Glucose 132 H, Calcium 9.4 Meaningful Use Info Meaningful Use Diagnoses (Choose all that apply): None applicable Discharge Plan Admission Admit Date/Time: 03/31/23 19:57 Attending Provider: Ethan Yip Primary Care Provider: Sagrario Perez Consulting Providers: Dana Robles; Noa Lao Instructions Patient Instructions: Falls Prevent Use Marke Walker Discharge Orders/Prescriptions Prescriptions: New amiodarone 200 mg Tablet 200 mg PO BID 5 Days Qty: 0 0RF amiodarone 200 mg Tablet 200 mg PO DAILY 30 Days Qty: 0 0RF Rx Instructions: Start when BID amiodarone is completed Eliquis 5 mg Tablet 5 mg PO BID 30 Days Qty: 0 0RF methimazole 5 mg Tablet 40 mg PO DAILY 3 Days Qty: 24 0RF metoprolol tartrate 25 mg Tablet 25 mg PO BID 30 Days Qty: 0 0RF methimazole 10 mg tablet 20 mg PO DAILY 30 Days Qty: 60 0RF Continued clonidine HCl 0.3 MG tablet 1 tab PO BID amlodipine 10 MG tablet 1 tab PO DAILY cyclobenzaprine 10 MG tablet 10 mg PO QHS PRN (Reason: LEG CRAMPS) insulin degludec [Tresiba FlexTouch U-200] 200 unit/mL (3 mL) Insulin Pen 56 unit SUBCUT QHS Patient Comments: 03/31 has not taken for 3 days d/t hypoglycemia/anorexia aspirin [Adult Low Dose Aspirin] 81 mg tablet,delayed release (DR/EC) 81 mg PO DAILY diphenhydramine HCl [Allergy (diphenhydramine)] 25 mg capsule 50 mg PO QHS diclofenac sodium 75 mg tablet,delayed release (DR/EC) 75 mg PO .COMPLEX Rx Instructions: 75 mg orally bid for 2 days, then none for 3 days; ibuprofen [IBU] 800 mg tablet 800 mg PO DAILY PRN (Reason: headache) Discontinued oxybutynin chloride 15 mg tablet extended release 24hr 15 mg PO BID Referrals / Follow Up: Sagrario Perez MD [Primary Care Provider] - As soon as possible (And/or your neurologist) Chris Simmons MD [Med Staff - Courtesy Staff] - Within 2 Weeks (She will need TSH, T3 and T4 drawn prior to visit) Marisol Gan PA [Med Staff - Adv Practice Prof] - 05/04/23 9:30 am Disposition Disposition (needs filled in before D/C Order can be placed): [facility] Charges/Coding Visit Charges Inpatient E&M: 49484 Disch Hosp >30min 04/03/23 1147 <Electronically signed by Ethan Yip MD> Cosigner Signature (if applicable): CC: Dr. Sagrario Perez MD; Dr. Ethan Yip MD~ Signed [facility] Work Phone: Evaluation note* Diagnosis Type 2 diabetes mellitus with [...] forms of tremor [facility] Diagnosis Tremor- Primary Abnormal involuntary movements [facility]* Diagnosis Hyperkeratosis- Primary Acquired keratoderma [facility]* Diagnosis Tremor- Primary Abnormal involuntary movements documented [facility]* Diagnosis Encounter for screening mammogram for breast cancer [facility] Diagnosis Type 2 diabetes mellitus with [...] stated as uncontrolled [facility]* Diagnosis Type 2 diabetes mellitus with diabetic neuropathy, with long-term current use of insulin (HCC) Tremor- Primary Abnormal involuntary movements [facility] Diagnosis Essential hypertension Unspecified essential hypertension Dysuria Type 2 diabetes mellitus with diabetic neuropathy, with long-term current use of insulin ([facility]) [facility] Diagnosis Tremor- Primary Abnormal involuntary movements Transient cerebral ischemia, unspecified type Facial weakness [facility]* Diagnosis Controlled type 2 diabetes mellitus with diabetic neuropathy, with long-term current use of insulin ([facility])- Primary Callus Corns and callosities Soft tissue mass Disorders of soft tissue, unspecified [facility] Diagnosis Type 2 diabetes mellitus with [...] hypertension Mixed hyperlipidemia [facility] Diagnosis Mixed hyperlipidemia [facility] Diagnosis Type 2 diabetes mellitus with diabetic neuropathy, with long-term current use of insulin (HCC)- Primary Mixed hyperlipidemia Tremor, essential Essential and other specified forms of tremor Primary hypertension Unspecified essential hypertension Class 3 severe obesity due to excess calories with body mass index (BMI) of 40.0 to 44.9 in adult, unspecified whether serious comorbidity present (HCC) [facility]* Diagnosis Type 2 diabetes mellitus with diabetic neuropathy, with long-term current use of insulin (HCC)- Primary documented [facility]* Diagnosis Type 2 diabetes mellitus with diabetic neuropathy, with long-term current use of insulin (HCC)- Primary Hypoglycemia Hypoglycemia, unspecified documented [facility]* Diagnosis Type 2 diabetes mellitus with diabetic neuropathy, with long-term current use of insulin (HCC) documented in [facility]* Diagnosis Encounter for screening mammogram for breast cancer documented in this encounter [facility]* Diagnosis Onset Date Resolution Status Atrial flutter acute Atrial tachycardia acute Contusion of lower back acut e Elevated serum creatinine ac [place] Multiple falls acute Tremor acute HTN (hypertension) chronic Hyperlipidemia chronic [facility] Work Phone: Evaluation note* Diagnosis Onset Date Resolution Status Atrial tachycardia acute Contusion of lower back acut e Elevated serum creatinine ac [place] Multiple [place] acute Tremor acute HTN (hypertension) chronic Hyperlipidemia chronic Atrial flutter resolved Anxiety acute Debility acute Depression acute Diabetes mellitus type II, controlled acute Leg cramps acute Multiple falls acute Overactive bladder acute Parkinson disease acute Tremor acute Asthma chronic HTN (hypertension) chronic Atrial flutter resolved [facility] Work Phone: Evaluation note* Diagnosis Physical debility- Primary Debility, unspecified [...] single bacterial disease [facility] Diagnosis Essential hypertension Unspecified essential hypertension [facility]* Diagnosis Onset Date Resolution Status Atrial tachycardia acute Contusion of lower back acut e Elevated serum creatinine ac [place] acute Tremor acute HTN (hypertension) chronic Hyperlipidemia chronic Atrial flutter resolved Anxiety acute Debility acute Depression acute Diabetes mellitus type II, controlled acute Leg cramps acute Multiple falls acute Overactive bladder acute Parkinson disease acute Tremor acute Asthma chronic HTN (hypertension) chronic Atrial flutter resolved Thyrotoxicosis due to Graves' disease chronic Atrial tachycardia acute [facility] Work Phone: Evaluation note* Diagnosis Hammer toe of right foot- Primary documented in [facility]* Diagnosis Onset Date Resolution Status Atrial tachycardia acute Contusion of lower back acut e Elevated serum creatinine ac [place] Multiple falls acute Tremor acute HTN (hypertension) chronic Hyperlipidemia chronic Atrial flutter resolved Anxiety acute Debility acute Depression acute Diabetes mellitus type II, controlled acute Leg cramps acute Multiple falls acute Overactive bladder acute Parkinson disease acute Tremor acute Asthma chronic HTN (hypertension) chronic Atrial flutter resolved Thyrotoxicosis due to Graves' disease chronic Paroxysmal atrial flutter [place] [facility] Work Phone: Evaluation note* Diagnosis Screening for osteoporosis Special screening for osteoporosis Asymptomatic menopause [facility]* Diagnosis Foot pain, right Pain in limb [facility]* Diagnosis Encounter for screening mammogram for breast cancer [facility] noteNo assessment information availableWGlenbeigh [facility] Work Phone: Hospital Discharge instructions Additional Instructions Allergic food reaction. Continue prednisone and Pepcid as prescribed. Use Benadryl 25 mg every 6 hours as needed. Follow-up with your doctor.[facility] Work Phone: Hospital Discharge instructions Additional Instructions Follow-up with your primary care physician. Return back to the ED if symptoms change or worsen. He received Tylenol here in the emergency department, no Tylenol for 6 hours. Tylenol as needed for your rib pain.[facility] Work Phone: Reason for referral (narrative)* Diagnostic Procedure Only (Routine) - Pending Review Specialty Diagnoses / Procedures Referred By Dave sanchez Referred To Contact [facility] Diagnoses Encounter for screening mammogram for breast cancer Procedures FORD SCREENING SCREENING MAMMOGRAPHY BI 2-VIEW BREAST INC Sagrario Boogie MD [address] [place] [address] [facility] [address] [place] [address] Referral ID Status Reason Start Date Expiration Date Visits Requested Visits Authorized [id number] Pending Review Auto-Generat ed Referral 01/08/2022 02/07/2023 1 1 [facility] for referral (narrative)* Diagnostic Procedure Only (Routine) - Pending Review Specialty Diagnoses / Procedures Referred By Kassieac t Referred To Contact [facility] Diagnoses Encounter for screening mammogram for breast cancer Procedures FORD SCREENING SCREENING MAMMOGRAPHY BI 2-VIEW BREAST INC CAD Sagrario Perez MD [address] [place] [address] [facility] [address] [place] [address] Referral ID Status Reason Start Date Expiration Date Visits Requested Visits Authorized [id number] Pending Review Auto-Generat ed Referral 12/31/2022 01/30/2024 1 1 [facility] for referral (narrative)* Diagnostic Procedure Only (Routine) - New Request Specialty Diagnoses / Procedures Referred By Dave t Referred To Contact XR IMAGING Diagnoses Screening for osteoporosis Asymptomatic menopause Procedures DXA-AXIAL SKELETON Sagrario Perez MD [address] [place] [address] [place] [address] Referral ID Status Reason Start Date Expiration Date Visits Requested Visits Authorized [id number] New Request Auto-Generat ed Referral 10/29/2023 11/27/2024 1 1 [facility] for referral (narrative)* Diagnostic Procedure Only (Urgent) - Closed Specialty Diagnoses / Procedures Referred By Kassieac t Referred To Contact XR IMAGING Diagnoses Heel spur, right Procedures XR FOOT GENERAL 3V AP/LAT/OBL RT X-RAY FOOT MINIMUM 3 VIEWS Devika Jimenez, PASarahC [address] [place] [address] [place] [address] Referral ID Status Reason Start Date Expiration Date V isits Requested Visits Authorized Closed Auto-Generate d Referral 10/26/2020 11/25/2021 1 1 [facility] Diagnostic Procedure Only (Routine) - New Request Specialty Diagnoses / Procedures Referred By Contac t Referred To Contact [facility] Diagnoses Encounter for screening mammogram for breast cancer Procedures FORD SCREENING W ISRA SCREENING DIGITAL BREAST TOMOSYNTHESIS BI SCREENING MAMMOGRAPHY BI 2-VIEW BREAST INC CAD Sagrario Perez MD [address] [place] [address] [facility] [address] [place] [address] Referral ID Status Reason Start Date Expiration Date Visits Requested Visits Authorized [id number] New Request Auto-Generat ed Referral 12/02/2023 12/31/2024 1 1 [facility] (narrative)No reason for referral information availableWGlenbeigh Hospital Work Phone: Reason for visit Narrative* Diagnostic Procedure Only (Urgent) - Closed Specialty Diagnoses / Procedures Referred By Kassieac t Referred To Contact XR IMAGING Diagnoses Heel spur, right Procedures XR FOOT GENERAL 3V AP/LAT/OBL RT X-RAY FOOT MINIMUM 3 VIEWS Devika Jimenez PA-C [address] [place] [address] [place] [address] Referral ID Status Reason Start Date Expiration Date V isits Requested Visits Authorized Closed Auto-Generate d Referral 10/26/2020 11/25/2021 1 1 [facility] Reason for Referral Specialty Diagnoses / Procedures Referred By Contac t Referred To Contact [facility] Diagnoses Tremor, essential Type 2 diabetes mellitus with diabetic neuropathy, with long-term current use of insulin (HCC) Generalized weakness Procedures CONSULT TO PHYSICAL THERAPY PHYSICAL THERAPY EVALUATION HIGH COMPLEX 45 MINS Benedict, Danielle, INSTRUCTOR TECHNICAL TRAINING.[employer] SALES REPRESENTATIVE [address] [place] [address] [facility] [address] [place] [address] Referral ID Status Reason Start Date Expiration Date Visits Requested Visits Authorized [id number] Authorized PCP Requested Referral Auto-Generate d Referral 06/10/2021 06/10/2022 99 99 Specialty Diagnoses / Procedures Referred By Contac t Referred To Contact [facility] Diagnoses Asthma, unspecified asthma severity, unspecified whether complicated, unspecified whether persistent Procedures SPIROMETRY WITH DILATOR IF OBSTRUCTED BRNCDILAT RSPSE SPMTRY PRE&POST-BRNCDILAT ADMN Danielle Benedict, INSTRUCTOR TECHNICAL TRAINING.[employer]OVEL[employer]IES SALES REPRESENTATIVE [address] [place] [address] [facility] [address] [place] [address] Referral ID Status Reason Start Date Expiration Date Visits Requested Visits Authorized [id number] Authorized Auto-Generat ed Referral 06/10/2021 07/10/2022 1 1 Specialty Diagnoses / Procedures Referred By Contac t Referred To Contact Neurology Diagnoses Tremor, essential Procedures CONSULT TO NEUROLOGY OFFICE/OUTPATIENT [facility] 60-74 MINUTES Danielle Benedict, INSTRUCTOR TECHNICAL TRAINING.[employer]OVELTIES SALES REPRESENTATIVE [address] [place] [address] Referral ID Status Reason Start Date Expiration Date Visits Requested Visits Authorized [id number] Authorized PCP Requested Referral 06/10/2021 06/10/2022 1 1 Specialty Diagnoses / Procedures Referred By Contac t Referred To Contact Neurology Diagnoses Tremor Procedures CONSULT TO NEUROLOGY OFFICE/OUTPATIENT [facility] 60-74 MINUTES Faith Raygoza, INSTRUCTOR TECHNICAL TRAINING.[facility] [address] [place] [address] Referral ID Status Reason Start Date Expiration Date Visits Requested Visits Authorized [id number] Authorized PCP Requested Referral 08/14/2022 08/14/2023 1 1 Specialty Diagnoses / Procedures Referred By Contac t Referred To Contact [facility] Diagnoses Transient cerebral ischemia, unspecified type Procedures MRI BRAIN WO IVCON MRI BRAIN BRAIN STEM W/O CONTRAST MATERIAL Faith Raygoza, INSTRUCTOR TECHNICAL TRAINING[employer] [address] [place] [id number] [facility] Referral ID Status Reason Start Date Expiration Date Visits Requested Visits Authorized [id number] Authorized Auto-Generat ed Referral 08/14/2022 09/13/2023 1 1 Specialty Diagnoses / Procedures Referred By Contac t Referred To Contact [facility] Diagnoses Callus Soft tissue mass Procedures MRI FOOT/TOES WO/W IVCON RIGHT MRI LOWER EXTREM OTH/THN JT W/O & W/CONTR MATR Marianela Mooney [address] [place] [address] Mr Imaging Referral ID Status Reason Start Date Expiration Date Visits Requested Visits Authorized [id number] Authorized Auto-Generat ed Referral 08/15/2022 09/14/2023 1 1 Specialty Diagnoses / Procedures Referred By Contac t Referred To Contact XR IMAGING Diagnoses Callus Soft tissue mass Procedures XR FOOT GENERAL 3V AP/LAT/OBL RIGHT RADEX FOOT COMPLETE MINIMUM 3 VIEWS Marianela Mooney [address] [place] [address] X[facility] Imaging Referral ID Status Reason Start Date Expiration Date V isits Requested Visits Authorized [id number] Closed Auto-Generate d Referral 08/15/2022 09/14/2023 1 1 Chief Complaint and Reason for Visit Chief Complaint AFIB WITH RVR, DEBIL ITY & FALLS AFIB WITH RVR, DEBILITY & FALLS AFIB WITH RVR, DEBILITY & FALLS AFIB WITH RVR, DEBILITY & FALLS AFIB WITH RVR, DEBILITY & FALLS AFIB WITH RVR, DEBILITY & FALLS Reason for Visit Atrial flutter Atrial tachycardia Contusion of lower back Elevated serum creatinine Multiple falls Tremor HTN (hypertension) Hyperlipidemia Chief Complaint AFIB WITH RVR, DEBIL ITY & FALLS AFIB WITH RVR, DEBILITY & FALLS AFIB WITH RVR, DEBILITY & FALLS AFIB WITH RVR, DEBILITY & FALLS AFIB WITH RVR, DEBILITY & FALLS AFIB WITH RVR, DEBILITY & FALLS AFIB WITH RVR, DEBILITY & FALLS AFIB WITH RVR, DEBILITY, FALLS Reason for Visit Atrial tachycardia Contusion of lower back Elevated serum creatinine Multiple falls Tremor HTN (hypertension) Hyperlipidemia Atrial flutter Anxiety Debility Depression Diabetes mellitus type II, controlled Leg cramps Multiple falls Overactive bladder Parkinson disease Tremor Asthma HTN (hypertension) Atrial flutter Chief Complaint AFIB WITH RVR, DEBIL ITY & FALLS AFIB WITH RVR, DEBILITY & FALLS AFIB WITH RVR, DEBILITY & FALLS AFIB WITH RVR, DEBILITY & FALLS AFIB WITH RVR, DEBILITY & FALLS AFIB WITH RVR, DEBILITY & FALLS AFIB WITH RVR, DEBILITY & FALLS AFIB WITH RVR, DEBILITY, FALLS Thryoid HP S/P [facility] 04/03 allergic reaction Reason for Visit Atrial tachycardia Contusion of lower back Elevated serum creatinine Multiple falls Tremor HTN (hypertension) Hyperlipidemia Atrial flutter Anxiety Debility Depression Diabetes mellitus type II, controlled Leg cramps Multiple falls Overactive bladder Parkinson disease Tremor Asthma HTN (hypertension) Atrial flutter Thyrotoxicosis due to Graves' disease Atrial tachycardia Chief Complaint AFIB WITH RVR, DEBIL ITY & FALLS AFIB WITH RVR, DEBILITY & FALLS AFIB WITH RVR, DEBILITY & FALLS AFIB WITH RVR, DEBILITY & FALLS AFIB WITH RVR, DEBILITY & FALLS AFIB WITH RVR, DEBILITY & FALLS AFIB WITH RVR, DEBILITY & FALLS AFIB WITH RVR, DEBILITY, FALLS Thryoid HP S/P [facility] 04/03 allergic reaction SVT Reason for Visit Atrial tachycardia Contusion of lower back Elevated serum creatinine Multiple falls Tremor HTN (hypertension) Hyperlipidemia Atrial flutter Anxiety Debility Depression Diabetes mellitus type II, controlled Leg cramps Multiple falls Overactive bladder Parkinson disease Tremor Asthma HTN (hypertension) Atrial flutter Thyrotoxicosis due to Graves' disease Paroxysmal atrial flutter Chief Complaint Admit Date BACK PAIN July 29, 2024 9:28a m Chief Complaint Admit Date BACK PAIN July 29, 2024 9:28a m WEAKNESS August 15, 2024 12:3 7pm Chief Complaint Admit Date BACK PAIN July 29, 2024 9:28a m WEAKNESS August 15, 2024 12:3 7pm [email or web address] October 18, 2024 5: 17pm Family History No Family History Records Found Relationship Condition Age at Onset Recorded Date/T leonardo Unknown Family History?- Unknown May 27, 2017 8:58pm Family History?Heart Disease Unknown May 27, 2017 8:58pm Relationship Condition Age at Onset Recorded Date/T leonardo Unknown Family History?- Unknown May 27, 2017 9:58pm Family History?Heart Disease Unknown May 27, 2017 9:58pm Advance Directives No Advanced Directives Records Found Advance Directive Response Recorded Date/ Time Living Will No March 31 8:15pm Power of Weave Room Supervisor No March 31, 2023 8:15pm Advance Directive Response Recorded Date/ Time Name of Medical Power of Weave Room Supervisor Kemal Villafana , essence April 06, 2023 4:28pm Living Will Yes April 06 4:28pm Power of Weave Room Supervisor Yes April 06, 2023 4:28pm Advance Directive Response Recorded Date/ Time Name of Medical Power of Weave Room Supervisor Kemal Villafana, essence April 06, 2023 4:28pm Name of Medical Power of Weave Room Supervisor kemal villafana and germánoxana villafana May 08, 2023 7:48pm Living Will Yes May 08, 2023 7:48pm Power of Weave Room Supervisor Yes May 07 7:48pm Advance Directive Response Recorded Date/ Time Name of Medical Power of Weave Room Supervisor Kemal Villafana, essence April 06, 2023 5:28pm Name of Medical Power of Weave Room Supervisor kemal villafana and germán broderick May 08, 2023 8:48pm Living Will Yes May 08, 2023 8:48pm Power of Weave Room Supervisor Yes May 07 8:48pm Advance Directive Response Recorded Date/ Time Do you have a Healthcare Power of Weave Room Supervisor? No August 15, 2024 1:10pm Advance Directive Response Recorded Date/ Time Do you have a Healthcare Power of Weave Room Supervisor? No August 15, 2024 1:10pm Do you have a Healthcare Power of Weave Room Supervisor? No October 18, 2024 5:23pm Summary Purpose Additional Source Comments Source Comments (unrecognize d section and content) In the event this informatio n is protected by the Federal Confidentiality of Alcohol and Drug Abuse Patient Records regulations: The Federal rules restrict any use of the information to criminally investigate or prosecute any alcohol or drug abuse patient.[facility] Hospital[facility] the event this information is protected by the Federal Confidentiality of Alcohol and Drug Abuse Patient Records regulations: The Federal rules restrict any use of the information to criminally investigate or prosecute any alcohol or drug abuse patient.[facility] HospitalIn the event this information is protected by the Federal Confidentiality of Alcohol and Drug Abuse Patient Records regulations: The Federal rules restrict any use of the information to criminally investigate or prosecute any alcohol or drug abuse patient.[facility] HospitalIn the event this information is protected by the Federal Confidentiality of Alcohol and Drug Abuse Patient Records regulations: The Federal rules restrict any use of the information to criminally investigate or prosecute any alcohol or drug abuse patient.[facility] HospitalIn the event this information is protected by the Federal Confidentiality of Alcohol and Drug Abuse Patient Records regulations: The Federal rules restrict any use of the information to criminally investigate or prosecute any alcohol or drug abuse patient.[facility] HospitalIn the event this information is protected by the Federal Confidentiality of Alcohol and Drug Abuse Patient Records regulations: The Federal rules restrict any use of the information to criminally investigate or prosecute any alcohol or drug abuse patient.[facility] HospitalIn the event this information is protected by the Federal Confidentiality of Alcohol and Drug Abuse Patient Records regulations: The Federal rules restrict any use of the information to criminally investigate or prosecute any alcohol or drug abuse patient.[facility] HospitalIn the event this information is protected by the Federal Confidentiality of Alcohol and Drug Abuse Patient Records regulations: The Federal rules restrict any use of the information to criminally investigate or prosecute any alcohol or drug abuse patient.[facility] HospitalIn the event this information is protected by the Federal Confidentiality of Alcohol and Drug Abuse Patient Records regulations: The Federal rules restrict any use of the information to criminally investigate or prosecute any alcohol or drug abuse patient.[facility] HospitalIn the event this information is protected by the Federal Confidentiality of Alcohol and Drug Abuse Patient Records regulations: The Federal rules restrict any use of the information to criminally investigate or prosecute any alcohol or drug abuse patient.[facility] HospitalIn the event this information is protected by the Federal Confidentiality of Alcohol and Drug Abuse Patient Records regulations: The Federal rules restrict any use of the information to criminally investigate or prosecute any alcohol or drug abuse patient.[facility] HospitalIn the event this information is protected by the Federal Confidentiality of Alcohol and Drug Abuse Patient Records regulations: The Federal rules restrict any use of the information to criminally investigate or prosecute any alcohol or drug abuse patient.[facility] HospitalIn the event this information is protected by the Federal Confidentiality of Alcohol and Drug Abuse Patient Records regulations: The Federal rules restrict any use of the information to criminally investigate or prosecute any alcohol or drug abuse patient.[facility] HospitalIn the event this information is protected by the Federal Confidentiality of Alcohol and Drug Abuse Patient Records regulations: The Federal rules restrict any use of the information to criminally investigate or prosecute any alcohol or drug abuse patient.[facility] HospitalIn the event this information is protected by the Federal Confidentiality of Alcohol and Drug Abuse Patient Records regulations: The Federal rules restrict any use of the information to criminally investigate or prosecute any alcohol or drug abuse patient.[facility] HospitalIn the event this information is protected by the Federal Confidentiality of Alcohol and Drug Abuse Patient Records regulations: The Federal rules restrict any use of the information to criminally investigate or prosecute any alcohol or drug abuse patient.[facility] HospitalIn the event this information is protected by the Federal Confidentiality of Alcohol and Drug Abuse Patient Records regulations: The Federal rules restrict any use of the information to criminally investigate or prosecute any alcohol or drug abuse patient.[facility] HospitalIn the event this information is protected by the Federal Confidentiality of Alcohol and Drug Abuse Patient Records regulations: The Federal rules restrict any use of the information to criminally investigate or prosecute any alcohol or drug abuse patient.[facility] HospitalIn the event this information is protected by the Federal Confidentiality of Alcohol and Drug Abuse Patient Records regulations: The Federal rules restrict any use of the information to criminally investigate or prosecute any alcohol or drug abuse patient.[facility] HospitalIn the event this information is protected by the Federal Confidentiality of Alcohol and Drug Abuse Patient Records regulations: The Federal rules restrict any use of the information to criminally investigate or prosecute any alcohol or drug abuse patient.[facility] HospitalIn the event this information is protected by the Federal Confidentiality of Alcohol and Drug Abuse Patient Records regulations: The Federal rules restrict any use of the information to criminally investigate or prosecute any alcohol or drug abuse patient.[facility] HospitalIn the event this information is protected by the Federal Confidentiality of Alcohol and Drug Abuse Patient Records regulations: The Federal rules restrict any use of the information to criminally investigate or prosecute any alcohol or drug abuse patient.[facility] HospitalIn the event this information is protected by the Federal Confidentiality of Alcohol and Drug Abuse Patient Records regulations: The Federal rules restrict any use of the information to criminally investigate or prosecute any alcohol or drug abuse patient.[facility] HospitalIn the event this information is protected by the Federal Confidentiality of Alcohol and Drug Abuse Patient Records regulations: The Federal rules restrict any use of the information to criminally investigate or prosecute any alcohol or drug abuse patient.[facility] HospitalIn the event this information is protected by the Federal Confidentiality of Alcohol and Drug Abuse Patient Records regulations: The Federal rules restrict any use of the information to criminally investigate or prosecute any alcohol or drug abuse patient.[facility] HospitalIn the event this information is protected by the Federal Confidentiality of Alcohol and Drug Abuse Patient Records regulations: The Federal rules restrict any use of the information to criminally investigate or prosecute any alcohol or drug abuse patient.[facility] HospitalIn the event this information is protected by the Federal Confidentiality of Alcohol and Drug Abuse Patient Records regulations: The Federal rules restrict any use of the information to criminally investigate or prosecute any alcohol or drug abuse patient.[facility] HospitalIn the event this information is protected by the Federal Confidentiality of Alcohol and Drug Abuse Patient Records regulations: The Federal rules restrict any use of the information to criminally investigate or prosecute any alcohol or drug abuse patient.[facility] HospitalIn the event this information is protected by the Federal Confidentiality of Alcohol and Drug Abuse Patient Records regulations: The Federal rules restrict any use of the information to criminally investigate or prosecute any alcohol or drug abuse patient.[facility] HospitalIn the event this information is protected by the Federal Confidentiality of Alcohol and Drug Abuse Patient Records regulations: The Federal rules restrict any use of the information to criminally investigate or prosecute any alcohol or drug abuse patient.[facility] HospitalIn the event this information is protected by the Federal Confidentiality of Alcohol and Drug Abuse Patient Records regulations: The Federal rules restrict any use of the information to criminally investigate or prosecute any alcohol or drug abuse patient.[facility] HospitalIn the event this information is protected by the Federal Confidentiality of Alcohol and Drug Abuse Patient Records regulations: The Federal rules restrict any use of the information to criminally investigate or prosecute any alcohol or drug abuse patient.[facility] HospitalIn the event this information is protected by the Federal Confidentiality of Alcohol and Drug Abuse Patient Records regulations: The Federal rules restrict any use of the information to criminally investigate or prosecute any alcohol or drug abuse patient.[facility] HospitalIn the event this information is protected by the Federal Confidentiality of Alcohol and Drug Abuse Patient Records regulations: The Federal rules restrict any use of the information to criminally investigate or prosecute any alcohol or drug abuse patient.[facility] HospitalIn the event this information is protected by the Federal Confidentiality of Alcohol and Drug Abuse Patient Records regulations: The Federal rules restrict any use of the information to criminally investigate or prosecute any alcohol or drug abuse patient.[facility] HospitalIn the event this information is protected by the Federal Confidentiality of Alcohol and Drug Abuse Patient Records regulations: The Federal rules restrict any use of the information to criminally investigate or prosecute any alcohol or drug abuse patient.[facility] HospitalIn the event this information is protected by the Federal Confidentiality of Alcohol and Drug Abuse Patient Records regulations: The Federal rules restrict any use of the information to criminally investigate or prosecute any alcohol or drug abuse patient.[facility] HospitalIn the event this information is protected by the Federal Confidentiality of Alcohol and Drug Abuse Patient Records regulations: The Federal rules restrict any use of the information to criminally investigate or prosecute any alcohol or drug abuse patient.[facility] HospitalIn the event this information is protected by the Federal Confidentiality of Alcohol and Drug Abuse Patient Records regulations: The Federal rules restrict any use of the information to criminally investigate or prosecute any alcohol or drug abuse patient.[facility] Reason for Visit (unrecogniz ed section and content) Reason Comments Physical Reason Comments Tremor hands, chin and some times legs Specialty Diagnoses / Procedures Referred By Dave t Referred To Contact Neurology Diagnoses Tremor, essential Procedures CONSULT TO NEUROLOGY OFFICE/OUTPATIENT NEW HIGH MDM 60-74 MINUTES Danielle Benedict, INSTRUCTOR TECHNICAL TRAINING.NOVELTIES SALES REPRESENTATIVE [address] [place] [address] Referral ID Status Reason Start Date Expiration Date V isits Requested Visits Authorized [id number] Closed PCP Requested Referral 06/10/2021 06/10/2022 1 1 Reason Comments Established Patient Callus Reason Onset Date Comments Refill Request 10/10/2021 Reason Comments Established Patient 3 month follow up tr emors Reason Comments Patient Update Reason Comments Refill Request Reason Comments Med Change Request Reason Comments F/U 6 months Reason Comments Follow Up Reason Onset Date Comments Refill Request Refill Request 04/29/2022 NEW PHARMACY [facility] MAIL ORDER: SEE RX NOTES Reason Onset Date Comments Population Health Navigation Outreach 05/28/2022 [facility] [place] [facility] Reason Comments Follow Up 4 Month [...] Reason Comments Results Reason Comments Hospital F/U Reason Comments Follow Up 2 mo follow up growt h Reason Comments Appointment Reason Onset Date Comments Refill Request 12/04/2023 Reason Onset Date Comments Population Health Navigation Outreach 02/03/2024 [facility] list 2023 Care Teams (unrecognized sec tion and content) Cane Stripper Relationship Specialty Start Date End Date Sagrario Perez MD [address] [place], [place] [id number] PCP - General 11/24/05 Susie mE, [facility] [address] [place], [place] [id number] Pharmacist Pharmacy 01/13/20 Cane Stripper Relationship Specialty Start Date End Date Sagrario Perez MD [address] [place] [address] PCP - General 11/24/05 Susie Em, [facility] [address] [facility] [place] [place] [address] Pharmacist Pharmacy 01/13/20 Cane Stripper Relationship Specialty Start Date End Date Sagrario Perez MD [address] [facility] [place] [place] [address] PCP - General 11/24/05 Susei Em, [facility] [address] [facility] [place] [place] [address] Pharmacist Pharmacy 01/13/20 Cane Stripper Relationship Specialty Start Date End Date Sagrario Perez MD [address] [facility] [place] [address] PCP - General 11/24/05 Susie Em, [facility] [address] [facility] [place] [place] [address] Pharmacist Pharmacy 01/13/20 Cane Stripper Relationship Specialty Start Date End Date Sagrario Perez MD [address] [facility] [place] [place] [address] PCP - General 11/24/05 AmolSusie, [facility] [address] [facility] [place] [place] [address] Pharmacist Pharmacy 01/13/20 Cane Stripper Relationship Specialty Start Date End Date Sagrario Perez MD [address] [facility] [place] [address] PCP - General 11/24/05 AmolSusie, [facility] [address] [facility] [place] [place] [address] Pharmacist Pharmacy 01/13/20 Cane Stripper Relationship Specialty Start Date End Date Sagrario Perez MD [address] [facility] [place] [address] PCP - General 11/24/05 [facility] [address] [facility] [place] [address] Pharmacist Pharmacy 01/13/20 Cane Stripper Relationship Specialty Start Date End Date Sagrario Perez MD [address] [facility] [place] [place] [address] PCP - General 11/24/05 AmolSusie, [facility] [address] [facility] [place] [place] [address] Pharmacist Pharmacy 01/13/20 Cane Stripper Relationship Specialty Start Date End Date Sagrario Perez MD [address] [facility] [place] [place] [address] PCP - General 11/24/05 AmolSusie, [facility] [address] [facility] [place] [place] [address] Pharmacist Pharmacy 01/13/20 Cane Stripper Relationship Specialty Start Date End Date Sagrario Perez MD [address] [facility] [place] [place] [address] PCP - General 11/24/05 AmolSusie, [facility] [address] [facility] [place] [place] [address] Pharmacist Pharmacy 01/13/20 Cane Stripper Relationship Specialty Start Date End Date Sagrario Perez MD [address] [facility] [place] [address] PCP - General 11/24/05 Susie Em, [facility] [address] [facility] [place] [place] [address] Pharmacist Pharmacy 01/13/20 Cane Stripper Relationship Specialty Start Date End Date Sagrario Perez MD [address] [facility] [place] [address] PCP - General 11/24/05 Susie Em, [facility] [address] [facility] [place] [place] [address] Pharmacist Pharmacy 01/13/20 Cane Stripper Relationship Specialty Start Date End Date Sagrario Perez MD [address] [facility] [place] [address] PCP - General 11/24/05 Susie Em, [facility] [address] [facility] [place] [address] Pharmacist Pharmacy 01/13/20 Cane Stripper Relationship Specialty Start Date End Date Sagrario Perez MD [address] [facility] [place] [address] PCP - General 11/24/05 Susie Em, [facility] [address] [facility] [place] [place] [address] Pharmacist Pharmacy 01/13/20 Cane Stripper Relationship Specialty Start Date End Date Sagrario Perez MD [address] [facility] [place] [address] PCP - General 11/24/05 Susie Em, [facility] [address] [facility] [place] [place] [address] Pharmacist Pharmacy 01/13/20 Cane Stripper Relationship Specialty Start Date End Date Sagrario Perez MD [address] [facility] [place] [address] PCP - General 11/24/05 Susie Em, [facility] [address] [facility] [place] [place] [address] Pharmacist Pharmacy 01/13/20 Cane Stripper Relationship Specialty Start Date End Date Sagrario Perez MD [address] [facility] [place] [place] [address] PCP - General 11/24/05 [facility] [address] [facility] [place] [place] [address] Pharmacist Pharmacy 01/13/20 Cane Stripper Relationship Specialty Start Date End Date Sagrario Perez MD [address] [facility] [place] [address] PCP - General 11/24/05 AmolAshely, [facility] [address] [facility] [place] [address] Pharmacist Pharmacy 01/13/20 Cane Stripper Relationship Specialty Start Date End Date Sagrario Perez MD [address] [facility] [place] [address] PCP - General 11/24/05 [facility] [address] [facility] [place] [place] [address] Pharmacist Pharmacy 01/13/20 Cane Stripper Relationship Specialty Start Date End Date Sagrario Perez MD [address] [facility] [place] [address] PCP - General 11/24/05 AmolSusie, [facility] [address] [facility] [place] [address] Pharmacist Pharmacy 01/13/20 Team Status: Active Member Role Status Dates Dr. Sagrario Perez MD Family Provider Active Dr. Sagrario Perez MD Primary Care Provider Active Team Status: Active Member Role Status Dates Dr. Sagrario Perez MD Primary Care Provider Active Dr. Luis Mcdonald MD Emergency Provider Active Dr. Noa Lao DO Admit Provider, Att ending Provider, Other Provider Active Dr. Dana Robles MD Other Provider Active Team Status: Active Member Role Status Dates Dr. Sagrario Perez MD Primary Care Provider Active Dr. Luis Mcdonald MD Emergency Provider Active Dr. Noa Lao DO Admit Provider, Other Provider Ac tive Dr. Dana Robles MD Other Provider Active Dr. Ethan Yip MD Attending Provider, Other Provider Active Team Status: Active Member Role Status Dates Dr. Sagrario Perez MD Primary Care Provider Active Dr. Dana oRbles MD Attending Provider Active Team Status: Active Member Role Status Dates Dr. Sagrario Perez MD Primary Care Provider Active Dr. Luis Mcdonald MD Emergency Provider Active Dr. Noa Loa DO Admit Provider, Other Provider Ac tive Dr. Dana Robles MD Attending Provider, Other Provid er Active Dr. Ethan Yip MD Other Provider Active Team Status: Inactive Member Role Status Dates Dr. Sagrario Perez MD Primary Care Provider Active Dr. uLis Mcdonald MD Emergency Provider Active Dr. Noa Lao DO Admit Provider, Other Provider Ac tive Dr. Dana Robles MD Other Provider Active Dr. Ethan Yip MD Attending Provider Active Team Status: Active Member Role Status Dates Dr. Sagrario Perez MD Primary Care Provider Active Dr. Ethan Yip MD Attending Provider Active Team Status: Inactive Member Role Status Dates Dr. Sagrario Preez MD Primary Care Provider Active Dr. Troy Gallo MD Admit Provider, At tending Provider, Referring Provider Active Cane Stripper Relationship Specialty Start Date End Date Sagrario Perez MD [address] [place] [address] PCP - General 11/24/05 Cane Stripper Relationship Specialty Start Date End Date Sagrario Perez MD [address] [place] [address] PCP - General 11/24/05 Team Status: Active Member Role Status Dates Dr. Sagrario Perez MD Family Provider Active Dr. Clemencia Miller MD Primary Care Provider Active Team Status: Inactive Member Role Status Dates Dr. Sagrario Perez MD Primary Care Provider, Referr ing Provider Active Marisol CROWLEY, PA Attending Provider Active Team Status: Inactive Member Role Status Dates Dr. Sagrario Perez MD Primary Care Provider, Referr ing Provider Active Dr. Chris Simmons MD Attending Provider Active Team Status: Inactive Member Role Status Dates Dr. Clemencia Miller MD Primary Care Provider Active Dr. Collins Zimmerman DO Emergency Provider Active Cane Stripper Relationship Specialty Start Date End Date Sagrario Perez MD [address] [place], [place] [address] PCP - General 11/24/05 Team Status: Inactive Member Role Status Dates Marisol CROWLEY, PA Attending Provider, Referr ing Provider Active Dr. Clemencia Miller MD Primary Care Provider Active Team Status: Inactive Member Role Status Dates Dr. Clemencia Miller MD Primary Care Provider Active Dr. Collins Zimmerman DO Attending Provider, Emergency Provide r Active Cane Stripper Relationship Specialty Start Date End Date Sagrario Perez MD [address] [place], [place] [address] PCP - General 11/24/05 Cane Stripper Relationship Specialty Start Date End Date Sagrario Perez MD [address] [place], [place] [address] PCP - General 11/24/05 Cane Stripper Relationship Specialty Start Date End Date Sagrario Perez MD [address] [place], [place] [address] PCP - General 11/24/05 Susie Em, [facility] [address] [place], [place] [address] Pharmacist Pharmacy 01/13/20 01/12/23 Cane Stripper Relationship Specialty Start Date End Date Sagrario Perez MD [address] [place], [place] [address] PCP - General 11/24/05 Cane Stripper Relationship Specialty Start Date End Date Sagrario Perez MD [address] [place], [place] [address] PCP - General 11/24/05 Cane Stripper Relationship Specialty Start Date End Date Sagrario Perez MD [address] [place], [place] [address] PCP - General 11/24/05 Danielle Benedict, INSTRUCTOR TECHNICAL TRAINING.NOVELTIES SALES REPRESENTATIVE [address] [place], [place] [id number] Flower Pot Press Operator Internal Medicine 02/08/24 Billie Ochoa, INSTRUCTOR TECHNICAL TRAINING.[employer] [address] [place], [place] [id number] Flower Pot Press Operator Internal Medicine 02/08/24 Team Status: Active Member Role Status Dates CLEMENCIA MILLER Primary Care Provider Active Team Status: Inactive Member Role Status PAUL Fu Primary Care Provider Active Start : July 29, 2024 End: July 29, 2024 Dr. Luis Mcdonald MD Emergency Provider Active Start: July 29, 2024 End: July 29, 2024 Team Status: Inactive Member Role Status Dates PAUL KHANNA Primary Care Provider Active Start : July 29, 2024 End: July 29, 2024 Dr. Luis Mcdonald MD Attending Provider Active Start: July 29, 2024 End: July 29, 2024 Dr. Luis Mcdonald MD Emergency Provider Active Start: July 29, 2024 End: July 29, 2024 Team Status: Inactive Member Role Status Dates PAUL KHANNA Primary Care Provider Active Start : August 15, 2024 End: August 15, 2024 Dr. Wellington Law DO Emergency Provider Activ e Start: August 15, 2024 End: August 15, 2024 Team Status: Active Member Role/Relationship Status Dates Dr. Pb Wallace MD Primary Care Provider Active Team Status: Inactive Member Role/Relationship Status Dates GREG KHANNAEddie Primary Care Provider Active Start : July 29, 2024 End: July 29, 2024 Dr. Luis Mcdonald MD Attending Provider Active Start: July 29, 2024 End: July 29, 2024 Dr. Luis Mcdonald MD Emergency Provider Active Start: July 29, 2024 End: July 29, 2024 Team Status: Inactive Member Role/Relationship Status Dates GREG KHANNAEddie Primary Care Provider Active Start : August 15, 2024 End: August 15, 2024 Dr. Wellington Law DO Attending Provider Activ e Start: August 15, 2024 End: August 15, 2024 Dr. Wellington Law DO Emergency Provider Activ e Start: August 15, 2024 End: August 15, 2024 Team Status: Inactive Member Role/Relationship Status Dates Dr. Loly Loo MD Attending Provider Active Start: August 30, 2024 Team Status: Inactive Member Role/Relationship Status Dates Dr. Luis Mcdonald MD Emergency Provider Active Start: October 18, 2024 End: October 18, 2024 Dr. Pb Wallace MD Primary Care Provider Active Start: October 18, 2024 End: October 18, 2024 INFORMATION SOURCE (unrecogn ized section and content) DATE CREATED AUTHOR 03/19/2024 [facility] DATE CREATED AUTHOR AUTHOR'S MARCIA ATDAISY 10/24/2024 [facility] Goals (unrecognized section and content) Goals may be documented in a n alternate sectionGoals may be documented in an alternate sectionGoals may be documented in an alternate section FOR RECORDS PERTAINING TO PATIENTS WHO ARE [...] BE BASED ON THE PRIMARY CLINICAL RECORDS. [facility]Like[facility]. provides no warranty or guarantee of the accuracy or completeness of information in this document.
[2025-01-25 21:10] VITALS: BP 166/129; PULSE 95; RESP 18; TEMP 36.9; O2SAT 97
[2025-01-25 21:19] LABS: Squamous Epithelial Cells - UA 0 SEEN /hpf (5-10)
[2025-01-25 21:22] LABS: Anion Gap 13 (5-15); BUN 28 mg/dL (4-19); BUN/Creat Ratio 27.6 RATIO (10-20); Calcium,Total 9.7 mg/dL (7.6-11.0); Carbon Dioxide 24.2 mmol/L (21.0-32.0); Chloride 104 mmol/L (98-108); Estimated Creatinine Clearance 59.16 ml/min (50-250); Glucose 167 mg/dL (70-99); Potassium 3.6 mmol/L (3.3-5.1)
--- NOTE | 2025-01-25 21:22 | RAD_ITS ---
PROCEDURE: KNEE 1 OR 2 VIEWS 01/25/2025 REASON FOR EXAM: FALL TECHNIQUE: Procedure Code: RADK Modality: DX Procedure: KNEE 1 OR 2 VIEWS Laterality: Left COMPARISON: None. FINDINGS: No acute fracture or dislocation. Mild-moderate tricompartmental degenerative arthrosis with predominantly medial joint space narrowing, subchondral sclerosis and marginal osteophytosis. No significant joint effusion or soft tissue swelling appreciated. RAD/Knee 1 or 2 Views IMPRESSION: No acute fracture or dislocation. Mild-moderate tricompartmental degenerative arthrosis. Reading Location: [id number]
--- NOTE | 2025-01-25 21:22 | RAD_ITS ---
PROCEDURE: KNEE 1 OR 2 VIEWS 01/25/2025 REASON FOR EXAM: FALL TECHNIQUE: Procedure Code: RADK Modality: DX Procedure: KNEE 1 OR 2 VIEWS Laterality: Right COMPARISON: 03/31/2023 FINDINGS: No acute fracture or dislocation appreciated. Mild-moderate tricompartmental degenerative arthrosis with predominantly medial joint space narrowing, subchondral sclerosis and marginal osteophytosis. No significant joint effusion or soft tissue swelling appreciated. RAD/Knee 1 or 2 Views IMPRESSION: No acute fracture or dislocation. Mild-moderate tricompartmental degenerative arthrosis. Reading Location: [id number]
--- NOTE | 2025-01-25 21:22 | RAD_ITS ---
PROCEDURE: CHEST 1 VIEW (PORTABLE) 01/25/2025 REASON FOR EXAM: WEAKNESS TECHNIQUE: Frontal view of the chest. COMPARISON: 08/15/2024 FINDINGS: Lungs/Pleura: Clear. Heart/Mediastinum: Within normal limits. Bones/Soft tissues: Mild degenerative changes of the spine. RAD/Chest 1 View (Portable) IMPRESSION: No acute cardiopulmonary disease. Reading Location: [id number]
[2025-01-25 21:47] VITALS: BP 149/58; PULSE 90
[2025-01-25 21:55] LABS: Color, Urine Yellow (Yellow); Glucose, Dipstick Normal (Normal); Ketone-Dipstick Negative (Negative); Leukocyte Esterase-Dipstick 25 /ul (Negative); Nitrite-Dipstick Negative (Negative); Occult Blood-Urine 50 /ul (Negative); Protein-Dipstick 500 mg/dl (Negative); Specific Gravity, Urine 1.020 (1.002-1.030); Urine Bilirubin Dipstick Negative (Negative)
[2025-01-25 22:00] VITALS: BP 139/76; PULSE 90; RESP 22; TEMP 36.9; O2SAT 96
[2025-01-25 22:18] LABS: Red Blood Cells-Urine 0-5 SEEN /hpf (0-5)
[2025-01-25 22:19] LABS: Fine Granular Cast- Urine 0-5 SEEN /lpf (0-5); Mucous, Urine 2+ /hpf (<or=2+)
[2025-01-25 23:00] VITALS: BP 148/68; PULSE 92; RESP 15; TEMP 36.9; O2SAT 95
[2025-01-26 00:05] VITALS: BP 132/87; PULSE 95; RESP 16; TEMP 36.2; O2SAT 95
== END 2025-01-26 00:06 | disposition home or self-care (01) ==
PROVIDERS: Emergency Provider Emergency Medicine; PCP Internal Medicine; Visit Provider Emergency Medicine
DX: R53.1 Weakness (principal); G20.A1 Parkinson's disease without dyskinesia, without mention of fluctuations; I48.92 Unspecified atrial flutter; E11.9 Type 2 diabetes mellitus without complications; Z79.4 Long term (current) use of insulin; N39.0 Urinary tract infection, site not specified; E78.5 Hyperlipidemia, unspecified; Z90.710 Acquired absence of both cervix and uterus; I10 Essential (primary) hypertension; Z79.01 Long term (current) use of anticoagulants; Z79.899 Other long term (current) drug therapy; Z90.49 Acquired absence of other specified parts of digestive tract; W18.30XA Fall on same level, unspecified, initial encounter
CPT/HCPCS: 71045; 73560; 80048; 81001; 85025; 87077; 87086; 87088; 87186; 93005; 96361; 96374; 99285; P9612; A4216; J2405